=== PATIENT | male | born 1950 | race Caucasian/White ===

== ENCOUNTER → 2016-10-25 | Outpatient (CLI) | payer MEDICAID ==
[2016-10-25 14:58] LABS: CH 32.9; CHCM 32.1; HDW 2.24; HGB 9.1 gm/dL (13.0-17.5); MCH 33.4 pg (25.0-35.0); MCHC 32.4 g/dL (31.0-37.0); MCV 103.1 fL (80.0-100.0); Macrocytosis Slight; RBC 2.71 m/uL (4.30-5.90); RDW 12.2 % (11.5-15.5); WBC 7.3 k/uL (3.8-10.6)
[2016-10-25 15:17] LABS: ALT 31 U/L (21-72); AST 23 U/L (17-59); Alkaline Phosphatase 68 U/L (38-126); Anion Gap 8 mmol/L; Blood Urea Nitrogen 25 mg/dL (9-20); Calcium 9.4 mg/dL (8.4-10.2); Carbon Dioxide 37 mmol/L (22-30); Chloride 94 mmol/L (98-107); Glucose 80 mg/dL (74-99); Iron 100 ug/dL (49-181); Non-African American GFR(MDRD) >60 (>60 ml/min/1.73 sqM); Potassium 5.2 mmol/L (3.5-5.1); Sodium 139 mmol/L (137-145); Total Bilirubin 0.3 mg/dL (0.2-1.3)
[2016-10-25 15:26] LABS: % Iron Saturation 38.5 % (20-50); Total Iron Binding Capacity 260 ug/dL (261-462)
== END | disposition home or self-care (01) ==
LOC: LABWHC1 14:13
PROVIDERS: ATTEND Internal Medicine
DX: I25.10 Atherosclerotic heart disease of native coronary artery without angina pectoris (principal); I45.10 Unspecified right bundle-branch block; I25.5 Ischemic cardiomyopathy; D64.9 Anemia, unspecified; E87.8 Other disorders of electrolyte and fluid balance, not elsewhere classified
CPT/HCPCS: 36415; 80053; 82728; 83540; 83550; 85027

== ENCOUNTER → 2016-10-31 | Day surgery (SDC) | payer MEDICAID ==
[2016-10-29 09:05] VITALS: BMI 20.7
[~2016-10-31] MED LIST: SODIUM CHLORIDE 0.9% 1,000 ML IV SCH; VANCOMYCIN 2,000 MG in SODIUM CHLORIDE 0.9% 500 ML IVPB ONE; ceFAZolin 1,000 MG in SODIUM CHLORIDE 0.9% IRRIGATIO 250 ML IRRIGATION ONE; ceFAZolin 2 GM in SODIUM CHLORIDE 0.9% 100 ML IVPB ONE
[2016-10-31 12:04] VITALS: BP 124/60; PULSE 68; RESP 18; TEMP 98.7
[2016-10-31 12:21] LABS: Anion Gap 7 mmol/L; Blood Urea Nitrogen 22 mg/dL (9-20); Calcium 9.1 mg/dL (8.4-10.2); Carbon Dioxide 34 mmol/L (22-30); Chloride 92 mmol/L (98-107); Glucose 88 mg/dL (74-99); Non-African American GFR(MDRD) 56 (>60 ml/min/1.73 sqM); Potassium 5.8 mmol/L (3.5-5.1); Sodium 133 mmol/L (137-145)
== END ==
LOC: CATHEP 11:13
PROVIDERS: ATTEND Internal Medicine Clinical Cardiac Electrophysiology
DX: I25.5 Ischemic cardiomyopathy (principal); I25.10 Atherosclerotic heart disease of native coronary artery without angina pectoris; I50.9 Heart failure, unspecified; I48.0 Paroxysmal atrial fibrillation; I49.5 Sick sinus syndrome; I49.8 Other specified cardiac arrhythmias
CPT/HCPCS: 80048; J3370

== ENCOUNTER → 2016-11-11 | Outpatient (CLI) | payer MEDICAID ==
[2016-11-11 14:32] LABS: Anion Gap 10 mmol/L; Blood Urea Nitrogen 16 mg/dL (9-20); Calcium 9.3 mg/dL (8.4-10.2); Carbon Dioxide 35 mmol/L (22-30); Chloride 94 mmol/L (98-107); Glucose 96 mg/dL (74-99); Non-African American GFR(MDRD) >60 (>60 ml/min/1.73 sqM); Potassium 4.8 mmol/L (3.5-5.1); Sodium 139 mmol/L (137-145)
== END | disposition home or self-care (01) ==
LOC: LABWHC1 13:05
PROVIDERS: ATTEND Internal Medicine Clinical Cardiac Electrophysiology
DX: E87.5 Hyperkalemia (principal); I42.9 Cardiomyopathy, unspecified
CPT/HCPCS: 36415; 80048

== ENCOUNTER 2016-11-25 14:52 | Day surgery (SDC) | payer MEDICAID ==
[2016-11-21 09:08] VITALS: BMI 21.9
[~2016-11-25 14:52] MED LIST changes: -SODIUM CHLORIDE 0.9% 1,000 ML IV SCH; -VANCOMYCIN 2,000 MG in SODIUM CHLORIDE 0.9% 500 ML IVPB ONE
[2016-11-25] MEDS: SODIUM CHLORIDE 0.9% 1,000 ML IV SCH (15:45)
[2016-11-25] MEDS ORDERED: fentaNYL (PF) 50 MCG/ML 2 ML AMP ONE (17:49)
[2016-11-25] MEDS ORDERED: diphenhydrAMINE 50 MG/ML 1 ML VIAL ONE (17:49)
[2016-11-25] MEDS ORDERED: MIDAZOLAM 2 MG/2 ML VIAL ONE (17:49)
[2016-11-25] MEDS ORDERED: PROPOFOL 10 MG/ML 20 ML VIAL IV ONE (17:49)
[2016-11-25] MEDS ORDERED: IODIXANOL 320 MG/ML 100 ML IV ONE (18:25)
[2016-11-25] MEDS ORDERED: LIDOCAINE 1% INJ 10MG/ML (20 ML MDV) SQ ONE (18:31)
[2016-11-25] MEDS: LIDOCAINE 1% INJ 10MG/ML (20 ML MDV) SQ ONE ×2 (18:37→19:22)
[2016-11-25] MEDS ORDERED: HYDROcodone/APAP 5-325MG 1 EACH TAB PO PRN (19:15)
[2016-11-25] MEDS ORDERED: VANCOMYCIN 1,000 MG in SODIUM CHLORIDE 0.9% 250 ML IVPB STA (19:47)
[2016-11-25] MEDS ORDERED: ACETAMINOPHEN IV (For NPO) 1,000 MG in EMPTY BAG 1 BAG IVPB ONE (20:00)
--- NOTE | 2016-11-25 20:17 | CE ---
DATE OF SERVICE: 11/25/2016 INDICATIONS: Mr. Nakul bowles is a 66-year-old gentleman, patient of Dr. Finney and Dr. Oropeza, who has severe cardiomyopathy with heart failure symptoms. His heart failure symptoms have improved gradually. His left ventricular ejection fraction is still severely reduced. He has severe ischemic cardiomyopathy with chronic systolic dysfunction, ejection fraction of 30% to 35%, paroxysmal atrial fibrillation that precipitates acute heart failure. He has sick sinus syndrome, chronotropic incompetence, AV node disease, tendency for hyperkalemia as a result of which spironolactone had to be discontinued, right bundle branch block on 12-lead ECG. He is also on low dose amiodarone 100 mg daily for suppression of atrial fibrillation. He was brought for dual-chamber ICD implantation for primary prevention of sudden cardiac . He has a history of MRSA and he was treated for this by Dr. Elmore. DESCRIPTION OF PROCEDURE: Patient was brought to the EP lab in a fasting state. Written informed consent was obtained prior to the procedure. The left shoulder area was prepped and draped as per protocol. Next, 1% was used for local anesthesia. A 4 cm incision was made parallel to the deltopectoral groove, about 1.5 cm medial to it. The incision was carried down to the level of pectoralis muscle. A subfascial pocket was made. Hemostasis was assured. The left axillary vein was accessed at 2 separate points and via appropriate-sized introducer sheaths, 2 leads were positioned in the right heart. The atrial lead model #1944, 52 centimeters in length, and serial number [id number]. P waves were 5 mV, pacing impedance 530 ohms, pacing threshold 0.5 ohms at 0.5 milliseconds. ( ) test testing was negative. This was a Anya lead placed in the right atrial appendage. The ICD lead was a 58 cm quadripolar lead, model #DI2331E, serial number [id number]. R-waves were 11.7 mV, pacing impedance 450 ohms, pacing threshold 0.5 ohms at 0.5 milliseconds. ( ) test was negative. Both leads were the underlying pectoralis fascia using two nonabsorbable sutures. Pocket was irrigated with antibiotic solution. Leads were connected to the generator ([id number], serial number [id number]. Lead and generator were then placed in the subfascial pocket. The wound was closed in 3 layers and dressed per protocol. The device was secured to the underlying pectoralis muscle also. DFT testing under anesthesia. A DC fib shock was used to induce ventricular fibrillation. This was adequately and appropriately detected lead sensitivity and successfully internally defibrillated with a 20 joule shock. The 10 joule shock was unsuccessful in the cathodal polarity. Shocking impedance was 65 ohms. Charge time was 1.8 seconds for the first shock and 4.0 for the second shock. The device was then programmed on MADIT-RIT programming. First cardioversion at 20 joules, first defibrillation at 30 joules. Appropriate antitachycardia pacing was programmed. RESULT: Successful dual-chamber ICD implantation for primary prevention of sudden cardiac in this gentleman who has severe cardiomyopathy of a chronic nature with heart failure symptoms as well as evidence for sinus node disease and AV node disease, as well as right bundle branch block. PLAN: The patient may discontinue digoxin. The dose of metoprolol will be increased as an outpatient.
--- NOTE | 2016-11-25 20:21 | LTR ---
November 25, 2016 Dr. Finney RE: Rogers Mota tK Dear Dr. Finney: I had the pleasure of seeing Mr. Rogers Mota in electrophysiology followup. Mr. Mota underwent successful dual-chamber ICD implantation for primary prevention of sudden cardiac . He has a tendency for hyperkalemia and therefore spironolactone was discontinued. I have also asked him to discontinue digoxin. Hopefully his blood pressure will allow further maximization of his beta larisa dose as an outpatient. Thank you for entrusting me with the care of your patient. Warm regards. Sincerely, LUBNA VILLASEÑOR MD
[2016-11-25] MEDS: LACTATED RINGERS 1,000 ML IV SCH (20:41)
[2016-11-25] MEDS: IPRATROPIUM-ALBUTEROL 3 ML NEB INHALATION PRN (20:50)
[2016-11-25] MEDS: SYMBICORT 160-4.5 MCG INHALER INHALATION SCH (20:50)
[2016-11-25] MEDS ORDERED: ATORVASTATIN 40 MG TAB PO SCH (21:00)
[2016-11-25] MEDS: FUROSEMIDE 20 MG TAB PO SCH (21:25)
[2016-11-25] MEDS: METOPROLOL TARTRATE 25 MG TAB PO SCH (21:25)
[2016-11-25] MEDS: ACETAMINOPHEN TAB 325 MG TAB PO PRN (21:52)
[2016-11-26] MEDS: ceFAZolin 2 GM in SODIUM CHLORIDE 0.9% 100 ML IVPB SCH ×4 (00:01→17:16)
[2016-11-26] MEDS: IPRATROPIUM-ALBUTEROL 3 ML NEB INHALATION PRN ×3 (00:04→18:40)
[2016-11-26 05:47] VITALS: RESP 16
[2016-11-26] MEDS: SODIUM CHLORIDE 0.9% 1,000 ML IV SCH (06:02)
[2016-11-26] MEDS: LACTATED RINGERS 1,000 ML IV SCH (06:02)
[2016-11-26] MEDS ORDERED: LEVOTHYROXINE 75 MCG TAB PO SCH (06:30)
[2016-11-26] MEDS ORDERED: LEVOTHYROXINE 100 MCG TAB PO SCH (06:30)
[2016-11-26] MEDS: SYMBICORT 160-4.5 MCG INHALER INHALATION SCH ×2 (07:33→18:40)
--- NOTE | 2016-11-26 08:15 | XR ---
EXAMINATION TYPE: XR chest 2V DATE OF EXAM: 11/26/2016 6:38 AM COMPARISON: Prior chest x-ray 13 December 2015 HISTORY: Lead placement check TECHNIQUE: Frontal and lateral views of the chest are obtained. FINDINGS: There is been interval placement of a generator in the left pectoral region, leads are pre sent in the right atrium and ventricle. Interstitium is increased. There is blunting of the costophre wyatt angles. No evident pneumothorax. Heart size is stable. Pulmonary vascularity and yaya show a jay lar appearance. IMPRESSION: No evident complication status post lead placement. There is heart failure, pulmonary ve nous hypertension and interstitial edema, small effusions.
[2016-11-26] MEDS: FUROSEMIDE 20 MG TAB PO SCH (08:20)
[2016-11-26] MEDS: METOPROLOL TARTRATE 25 MG TAB PO SCH (08:22)
[2016-11-26] MEDS ORDERED: CLOPIDOGREL 75 MG TAB PO SCH (09:00)
[2016-11-26] MEDS ORDERED: ASPIRIN 81 MG CHEW PO SCH (09:00)
[2016-11-26] MEDS ORDERED: AMIODARONE 100 MG TAB PO SCH (09:00)
[2016-11-26] MEDS: ACETAMINOPHEN TAB 325 MG TAB PO PRN (14:25)
[2016-11-26 15:59] VITALS: BP 103/56; TEMP 99.1
[2016-11-26 18:43] VITALS: PULSE 88
--- NOTE | 2016-11-26 19:44 | P.DS ---
Providers Attending physician: Maximino Bowden Primary care physician: [facility] Course: Mr. Mota is doing very well post dual-chamber ICD implant. He has no chest discomfort no dizziness lightheadedness palpitations or shortness of breath. He is lying comfortably in bed. There is no hematoma at all. No soakage of the dressing Temperature 99.1F, pulse rate in the 80s, blood pressure 103/56 mmHg And neck examination is normal. No JVD no thyromegaly no carotid bruits Heart sounds S1 and S2 are normal no murmurs or gallops Breath sounds are normal and equal bilaterally Abdomen is soft nontender Extremities warm no edema ICD was interrogated and is functioning normally Chest x-ray is within normal limits Plan Patient is discharged home after completion of IV antibiotics and will follow with Dr. Lindo He will be seen in the ICD clinic in 5 days did all instructions post ICD implant were given to the patient Patient Condition at Discharge: Stable Plan - Discharge Summary Discharge Medication List RX: Levothyroxine Sodium [Synthroid] 175 mcg PO DAILY 06/23/15 [History] RX: Multivitamins, Thera [Multivitamin (formulary)] 1 tab PO DAILY 06/24/15 [ History] RX: Amiodarone [Cordarone] 100 mg PO DAILY 09/04/15 [History] RX: Aspirin 81 mg PO DAILY 09/04/15 [History] RX: Furosemide [Lasix] 20 mg PO BID 09/04/15 [History] RX: Atorvastatin [Lipitor] 40 mg PO HS tab 09/22/15 [Rx] RX: Clopidogrel [Plavix] 75 mg PO DAILY tab 09/22/15 [Rx] RX: Metoprolol Tartrate [Lopressor] 25 mg PO BID tab 09/22/15 [Rx] RX: Nitroglycerin Sl Tabs [Nitrostat] 0.4 mg SUBLINGUAL Q5M PRN #0 tab 09/22/15 [Rx] RX: Budesonide/Formoterol Fumarate [Symbicort 160-4.5 Mcg Inhaler] 2 puff INHALATION BID 09/29/15 [History] RX: Ferrous Sulfate [Iron (65 MG Elemental)] 325 mg PO BID 10/04/15 [History] RX: Cholecalciferol [Vitamin D3] 1,000 unit PO DAILY 10/29/16 [History] RX: Folic Acid 1 mg PO DAILY 10/29/16 [History] RX: Ipratropium-Albuterol Nebulize [Duoneb 0.5 mg-3 mg/3 ml Soln] 3 ml INHALATION TID PRN 10/29/16 [History] RX: L.acidoph,Paracasei, B.lactis [Probiotic] 1 each PO DAILY 10/29/16 [History] RX: Pantoprazole [Protonix] 40 mg PO DAILY 10/29/16 [History] RX: Sennosides [Senna] 8.6 mg PO DAILY 10/29/16 [History] RX: Ubidecarenone [Co Q-10] 100 mg PO DAILY 10/29/16 [History] Digoxin [Lanoxin] 125 mcg PO DAILY 11/25/16 [History] Follow up Appointment(s)/Referral(s): Adolfo Hollis MD [STAFF PHYSICIAN] - 01/20/17 4:00 pm (Appontment has been schedule in one week for device check. at 2:00 with Sridevi.) Mauricio Oropeza MD [STAFF PHYSICIAN] - 1 Week Patient Instructions/Handouts: Implantable Cardioverter Defibrillator (GEN) Activity/Diet/Wound Care/Special Instructions: PATIENT EDUCATION MATERIAL Instructions following a heart rhythm device implant. 1. Keep dressing DRY for ONE week. You may cover the area with Saran or Cling Wrap, prior to a shower. 2. The dressing will be removed after one week in the Device Clinic @ [facility]. Absorbable sutures were used to close the wound. 3. Avoid raising the [left] arm above the shoulder level. [6 week restriction] 4. Avoid arm movements, like backscratching, rubbing the head, or pulling on a cord. (6 weeks restriction) 5. Gentle range of motion movements of the shoulder, closest to the incision should be performed to avoid a frozen shoulder. (Pendulum exercises of the shoulder) 6. The opposite arm may be used freely. 7. Avoid driving for 7 days. 8. Avoid activities such as golfing, swimming, weed whacking, lifting more than 10 pounds weight, bowling, gymnastics and weight training/lifting. (6 weeks restriction) 9. Activities such as wood chopping with an axe, pull-ups in the gymnasium, power lifting, arc-welding, being close to home induction cooktops will always be a problem. In case of any problems, please call [facility], [place], @ [phone], Attention: Device Clinic Discontinue digoxin
== END 2016-11-26 19:23 | disposition home or self-care (01) ==
LOC: CATHEP 14:52 → 3OBS 19:05 → CATHEP 11-26 19:23
PROVIDERS: ATTEND Internal Medicine Clinical Cardiac Electrophysiology
DX: I25.5 Ischemic cardiomyopathy (principal); I25.10 Atherosclerotic heart disease of native coronary artery without angina pectoris; I48.0 Paroxysmal atrial fibrillation; I49.5 Sick sinus syndrome; I25.89 Other forms of chronic ischemic heart disease; Z00.6 Encounter for examination for normal comparison and control in clinical research program; I11.0 Hypertensive heart disease with heart failure; I50.22 Chronic systolic (congestive) heart failure; Z87.891 Personal history of nicotine dependence; I45.10 Unspecified right bundle-branch block; Z95.5 Presence of coronary angioplasty implant and graft; Z86.14 Personal history of Methicillin resistant Staphylococcus aureus infection; Z79.02 Long term (current) use of antithrombotics/antiplatelets; Z79.82 Long term (current) use of aspirin; Z79.51 Long term (current) use of inhaled steroids; Z79.899 Other long term (current) drug therapy
CPT/HCPCS: 94640 ×4; 94760; 33249; 71020; C1892; C1769; C1721; C1898; C1777; J2250; J3370; J1200; Q9967; J0690 ×3; J2001; J3010; J2704

== ENCOUNTER 2016-12-01 15:58 | Inpatient (IN) | payer MEDICAID ==
--- NOTE | 2016-12-01 16:40 | ED ---
SOB HPI - General Chief Complaint: Shortness of Breath Stated Complaint: SOB Time Seen by Provider: 12/01/16 16:18 Source: patient Mode of arrival: wheelchair Limitations: no limitations - History of Present Illness Initial Comments: 66-year-old male patient presents to emergency department today for complaints of shortness of breath. Patient is status post pacemaker and ICD implantation on Friday by Dr. Bowden. 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 Patient states that after the procedure on Friday his saturation did drop into the 70s, afterwards he coughed up some sputum and was able to get his sats back up and was discharged home. Patient states that since the procedure he has been short winded, rundown, and unable to perform activities of daily living without becoming extremely short of breath. Patient does have a history of COPD and is chronically dependent on home O2 at 2-3 L. Patient denies any headaches, dizziness, chest pain, back pain, abdominal pain, nausea, vomiting, hematuria, dysuria, urinary urgency, or urinary frequency. Patient denies any constipation, diarrhea, dark, bloody, or black stools. He denies any fever, chills, sore throat, and nasal congestion. He states he does have a chronic cough and denies any current sputum production. - Related Data Home Medications Medication Instructions Recorded Confirmed Levothyroxine Sodium [Synthroid] 175 mcg PO DAILY 06/23/15 12/01/16 Multivitamins, Thera [Multivitamin 1 tab PO DAILY 06/24/15 12/01/16 (formulary)] Amiodarone [Cordarone] 100 mg PO DAILY 09/04/15 12/01/16 Aspirin 81 mg PO DAILY 09/04/15 12/01/16 Furosemide [Lasix] 20 mg PO BID 09/04/15 12/01/16 Budesonide/Formoterol Fumarate 2 puff INHALATION RT-BID 09/29/15 12/01/16 [Symbicort 160-4.5 Mcg Inhaler] Ferrous Sulfate [Iron (65 MG 325 mg PO BID 10/04/15 12/01/16 Elemental)] Cholecalciferol [Vitamin D3] 1,000 unit PO DAILY 10/29/16 12/01/16 Folic Acid 1 mg PO DAILY 10/29/16 12/01/16 Ipratropium-Albuterol Nebulize 3 ml INHALATION RT-Q6H PRN 10/29/16 12/01/16 [Duoneb 0.5 mg-3 mg/3 ml Soln] L.acidoph,Paracasei, B.lactis 1 each PO DAILY 10/29/16 12/01/16 [Probiotic] Pantoprazole [Protonix] 40 mg PO DAILY 10/29/16 12/01/16 Sennosides [Senna] 8.6 mg PO DAILY 10/29/16 12/01/16 Ubidecarenone [Co Q-10] 100 mg PO DAILY 10/29/16 12/01/16 Previous Rx's Medication Instructions Recorded Atorvastatin [Lipitor] 40 mg PO HS tab 09/22/15 Clopidogrel [Plavix] 75 mg PO DAILY tab 09/22/15 Metoprolol Tartrate [Lopressor] 25 mg PO BID tab 09/22/15 Nitroglycerin Sl Tabs [Nitrostat] 0.4 mg SUBLINGUAL Q5M PRN #0 tab 09/22/15 Allergies Allergy/AdvReac Type Severity Reaction Status Date / Time No Known Allergies Allergy Verified 12/01/16 18:31 Review of Systems ROS Statement: Those systems with pertinent positive or pertinent negative responses have been documented in the HPI. ROS Other: All systems not noted in ROS Statement are negative. Past Medical History Past Medical History: Heart Failure, COPD, Hypertension, Myocardial Infarction ( SD), Renal Disease, Thyroid Disorder, Hypertension, Myocardial Infarction (SD), Thyroid Disorder Additional Past Medical History / Comment(s): See Dr Bowden's H&P, anemia, coumadin toxicity, hypoxia, weakness, dehydration, ASHD, , SACROCOCCYGEAL PRESSURE ULCER-healed,pulmonaty HTN, hypothyroidism, beginnings of cataracts bilaterally. Last Myocardial Infarction Date:: 06/24/15 History of Any Multi-Drug Resistant Organisms: C-DIFF Date of last positivie culture/infection: 09/22/2015 MDRO Source:: STOOL Past Surgical History: Heart Catheterization With Stent, Orthopedic Surgery Additional Past Surgical History / Comment(s): 1996 L shoulder rotator cuff surgery, colonoscopy with benign polypectomy.heart stent x1 Past Anesthesia/Blood Transfusion Reactions: No Reported Reaction Additional Past Anesthesia/Blood Transfusion Reaction / Comment(s): Pt has never received blood. Date of Last Stent Placement:: 06/2015 Past Psychological History: No Psychological Hx Reported Additional Psychological History / Comment(s): PT CURRENTLY PATIENT AT [facility] Smoking Status: Former smoker Past Alcohol Use History: None Reported Additional Past Alcohol Use History / Comment(s): Pt states he quit smoking when he had his SD. He started smoking in 1968 and was a ppd smoker until then. Patient denies any medical marijuana, street drug use. He denies any alcohol use. alcohol use. 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 Patient lives at home with his . No service. No pets in the home. Past Drug Use History: None Reported - Past Family History Father Family Medical History: Coronary Artery Disease (CAD), Myocardial Infarction (SD ) Additional Family Medical History / Comment(s): Father at age 86yrs. He had a CABG Mother Family Medical History: Cancer Additional Family Medical History / Comment(s): Mother in her 30's of breast cancer. General Exam Limitations: no limitations General appearance: alert, in no apparent distress Eye exam: Present: normal appearance, PERRL, EOMI. Absent: scleral icterus, conjunctival injection, periorbital swelling ENT exam: Present: normal exam, normal oropharynx, mucous membranes moist Neck exam: Present: normal inspection, full ROM. Absent: tenderness, meningismus, lymphadenopathy Respiratory exam: Present: respiratory distress (Mild), rales (Bilateral bases) , rhonchi (Expiratory throughout). Absent: normal lung sounds bilaterally, wheezes, stridor Cardiovascular Exam: Present: regular rate, normal rhythm, normal heart sounds. Absent: systolic murmur, diastolic murmur, rubs, gallop, clicks GI/Abdominal exam: Present: soft, normal bowel sounds. Absent: distended, tenderness, guarding, rebound, rigid Extremities exam: Present: normal inspection, full ROM, normal capillary refill. Absent: tenderness, pedal edema, joint swelling, calf tenderness Neurological exam: Present: alert, oriented X3, CN II-XII intact Psychiatric exam: Present: normal affect, normal mood Skin exam: Present: warm, dry, intact, pallor. Absent: rash Course Vital Signs 12/01/16 12/01/16 12/01/16 16:06 16:47 18:34 Temperature 97.8 F Pulse Rate 85 118 H Respiratory 20 20 Rate Blood Pressure 116/60 O2 Sat by Pulse 96 Oximetry 12/01/16 18:46 Temperature Pulse Rate 109 H Respiratory Rate Blood Pressure O2 Sat by Pulse Oximetry Medical Decision Making - Medical Decision Making 66-year-old male patient who is status post pacemaker and ICD implantation on Friday appointment of dyspnea and generalized weakness. Labs revealed a elevated troponin, CO2 of 40, and elevated BNP. D-dimer was also elevated at 1.21. CT of the chest was negative for any pulmonary embolism, findings were consistent with pulmonary edema. Patient will be admitted for diuresis and cardiology consultation. is accepting for Dr. Finney . - Lab Data Result diagrams: 12/01/16 16:40 12/01/16 16:40 Lab Results 12/01/16 12/01/16 12/01/16 Range/Units 16:40 16:40 16:40 WBC 9.7 (3.8-10.6) k/uL RBC 2.39 L (4.30-5.90) m/uL Hgb 8.2 L (13.0-17.5) gm/dL Hct 25.2 L (39.0-53.0) % MCV 105.3 H (80.0-100.0) fL MCH 34.2 (25.0-35.0) pg MCHC 32.4 (31.0-37.0) g/dL RDW 13.2 (11.5-15.5) % Plt Count 316 (150-450) k/uL Neutrophils % 77 % Lymphocytes % 10 % Monocytes % 7 % Eosinophils % 2 % Basophils % 1 % Neutrophils # 7.5 (1.3-7.7) k/uL Lymphocytes # 1.0 (1.0-4.8) k/uL Monocytes # 0.7 (0-1.0) k/uL Eosinophils # 0.2 (0-0.7) k/uL Basophils # 0.1 (0-0.2) k/uL Hypochromasia Slight Macrocytosis Slight PT (9.0-12.0) sec INR (<1.1) APTT (22.0-30.0) sec D-Dimer (<0.60) mg/L FEU Sodium 142 (137-145) mmol/L Potassium 5.2 H (3.5-5.1) mmol/L Chloride 93 L (98-107) mmol/L Carbon Dioxide 40 H* (22-30) mmol/L Anion Gap 9 mmol/L BUN 24 H (9-20) mg/dL Creatinine 1.00 (0.66-1.25) mg/dL Est GFR (MDRD) Af Amer >60 (>60 ml/min/1.73 sqM) Est GFR (MDRD) Non-Af >60 (>60 ml/min/1.73 sqM) Glucose 111 H (74-99) mg/dL Calcium 9.2 (8.4-10.2) mg/dL Magnesium 2.6 H (1.6-2.3) mg/dL Total Bilirubin 0.4 (0.2-1.3) mg/dL AST 19 (17-59) U/L ALT 27 (21-72) U/L Alkaline Phosphatase 71 (38-126) U/L Total Creatine Kinase 58 (55-170) U/L CK-MB (CK-2) 3.3 H* (0.0-2.4) ng/mL CK-MB (CK-2) Rel Index 5.7 Troponin I 0.213 H* (0.000-0.034) ng/mL NT-Pro-B Natriuret Pep pg/mL Total Protein 6.8 (6.3-8.2) g/dL Albumin 3.4 L (3.5-5.0) g/dL Influenza Type A RNA (Not Detectd) Influenza Type B (PCR) (Not Detectd) 12/01/16 12/01/16 12/01/16 Range/Units 16:40 16:40 16:40 WBC (3.8-10.6) k/uL RBC (4.30-5.90) m/uL Hgb (13.0-17.5) gm/dL Hct (39.0-53.0) % MCV (80.0-100.0) fL MCH (25.0-35.0) pg MCHC (31.0-37.0) g/dL RDW (11.5-15.5) % Plt Count (150-450) k/uL Neutrophils % % Lymphocytes % % Monocytes % % Eosinophils % % Basophils % % Neutrophils # (1.3-7.7) k/uL Lymphocytes # (1.0-4.8) k/uL Monocytes # (0-1.0) k/uL Eosinophils # (0-0.7) k/uL Basophils # (0-0.2) k/uL Hypochromasia Macrocytosis PT 11.0 (9.0-12.0) sec INR 1.1 (<1.1) APTT 26.6 (22.0-30.0) sec D-Dimer 1.21 H (<0.60) mg/L FEU Sodium (137-145) mmol/L Potassium (3.5-5.1) mmol/L Chloride (98-107) mmol/L Carbon Dioxide (22-30) mmol/L Anion Gap mmol/L BUN (9-20) mg/dL Creatinine (0.66-1.25) mg/dL Est GFR (MDRD) Af Amer (>60 ml/min/1.73 sqM) Est GFR (MDRD) Non-Af (>60 ml/min/1.73 sqM) Glucose (74-99) mg/dL Calcium (8.4-10.2) mg/dL Magnesium (1.6-2.3) mg/dL Total Bilirubin (0.2-1.3) mg/dL AST (17-59) U/L ALT (21-72) U/L Alkaline Phosphatase (38-126) U/L Total Creatine Kinase (55-170) U/L CK-MB (CK-2) (0.0-2.4) ng/mL CK-MB (CK-2) Rel Index Troponin I (0.000-0.034) ng/mL NT-Pro-B Natriuret Pep 29038 pg/mL Total Protein (6.3-8.2) g/dL Albumin (3.5-5.0) g/dL Influenza Type A RNA Not Detected (Not Detectd) Influenza Type B (PCR) Not Detected (Not Detectd) 12/01/16 18:37 EKG obtained at 1706 reveals normal sinus rhythm, possible left atrial enlargement, right bundle branch block, anteroseptal infarct with age undetermined, ventricular rate 94 IL interval 192 QRS duration 160 QT 384 QTC [address]. No significant ST elevation or depression noted. Compared to previous EKG obtained on 10/05/2015 reveals similar changes, changes appear to be chronic. - Radiology Data Radiology results: report reviewed CT of the chest impression by Dr. Ramirez reveals no evidence of pulmonary embolus him. Pulmonary edema with pleural effusions and cardiomegaly consistent with congestive heart failure. There is decreased amount of fluid by increasing right pleural fluid compared to last exam. Pulmonary edema is significantly increased. X-ray reveals CHF with pleural effusion that has progressed compared to last exam on 11/26/2016. Disposition Clinical Impression: CHF (congestive heart failure), Elevated troponin, Dyspnea Disposition: ADMITTED IP TO THIS HOSP Condition: Fair Decision Date: 12/01/16 Decision Time: 18:32
[2016-12-01 17:05] LABS: Basophils # (A) 0.1 k/uL (0-0.2); Basophils % (A) 1 %; CH 32.9; CHCM 31.5; Eosinophils # (A) 0.2 k/uL (0-0.7); Eosinophils % (A) 2 %; HCT 25.2 % (39.0-53.0); HDW 2.56; HGB 8.2 gm/dL (13.0-17.5); Hypochromasia Slight; Luc # (Auto) 0.32; Luc % (Auto) 3; Lymphocytes % (A) 10 %; MCH 34.2 pg (25.0-35.0); MCHC 32.4 g/dL (31.0-37.0); MCV 105.3 fL (80.0-100.0); Macrocytosis Slight; Mean Platelet Volume 8.3; Monocytes # (A) 0.7 k/uL (0-1.0); Monocytes % (A) 7 %; Neutrophils # (A) 7.5 k/uL (1.3-7.7); Neutrophils % (A) 77 %; RBC 2.39 m/uL (4.30-5.90); RDW 13.2 % (11.5-15.5); WBC 9.7 k/uL (3.8-10.6); WBC (Perox) 10.16
[2016-12-01 17:15] LABS: ALT 27 U/L (21-72); AST 19 U/L (17-59); Alkaline Phosphatase 71 U/L (38-126); Blood Urea Nitrogen 24 mg/dL (9-20); Calcium 9.2 mg/dL (8.4-10.2); Chloride 93 mmol/L (98-107); Glucose 111 mg/dL (74-99); Magnesium 2.6 mg/dL (1.6-2.3); Non-African American GFR(MDRD) >60 (>60 ml/min/1.73 sqM); Potassium 5.2 mmol/L (3.5-5.1); Sodium 142 mmol/L (137-145); Total Bilirubin 0.4 mg/dL (0.2-1.3); Total Protein 6.8 g/dL (6.3-8.2)
[2016-12-01 17:21] LABS: Anion Gap 9 mmol/L
[2016-12-01 17:22] LABS: INR 1.1 (<1.1); Partial Thromboplastin Time 26.6 sec (22.0-30.0)
--- NOTE | 2016-12-01 17:22 | XR ---
EXAMINATION TYPE: XR chest 2V DATE OF EXAM: 12/01/2016 4:58 PM COMPARISON: 11/26/2016 HISTORY: Short of breath TECHNIQUE: Frontal and lateral views of the chest are obtained. FINDINGS: There is pulmonary vascular congestion. Heart is slightly enlarged. There is a left axilla ry pacemaker with lead tips in the right ventricle. There are chest leads. There is blunting of costo phrenic angles. IMPRESSION: Congestive heart failure with pleural effusions that has progressed compared to 7.
[2016-12-01 17:39] LABS: Carbon Dioxide 40 mmol/L (22-30)
[2016-12-01] MEDS ORDERED: RX INFO: IV CONTRAST WAS GIVEN 1 EACH MISC MISCELLANE PRN (17:39)
[2016-12-01 18:03] LABS: Creatine Kinase MB 3.3 ng/mL (0.0-2.4); Troponin I 0.213 ng/mL (0.000-0.034)
[2016-12-01] MEDS ORDERED: IPRATROPIUM-ALBUTEROL 3 ML NEB INHALATION STA (18:21)
[2016-12-01] MEDS ORDERED: FUROSEMIDE 10 MG/ML 4 ML VIAL IV STA (18:21)
[2016-12-01] MEDS ORDERED: NALOXONE 0.4 MG/ML 1 ML VIAL IV PRN (18:23)
--- NOTE | 2016-12-01 18:25 | CT ---
EXAMINATION TYPE: CT angio chest DATE OF EXAM: 12/01/2016 6:16 PM COMPARISON: 03/01/2016 HISTORY: Patient complains of shortness of breath and chest pain. CT DLP: 209.1 mGycm Automated exposure control for dose reduction was used. CONTRAST: CTA scan of the thorax is performed with IV Contrast, patient injected with 100 mL of Omnipaque 350, pulmonary embolism protocol. . FINDINGS: There is diffuse pulmonary edema. There is coarse interstitial infiltrates throughout the lungs. I se e no filling defects in the pulmonary arteries. Heart is enlarged. There are bilateral pleural effusi ons and larger on the right side. There is no mediastinal adenopathy. There are no hilar masses. There is some contrast reflux into the inferior vena cava. IMPRESSION: NO EVIDENCE OF PULMONARY EMBOLISM. PULMONARY EDEMA WITH PLEURAL EFFUSIONS AND CARDIOMEGALY CONSISTENT WITH CONGESTIVE HEART FAILURE. THE RE IS DECREASE IN LEFT PLEURAL FLUID BUT INCREASE IN RIGHT PLEURAL FLUID COMPARED TO LAST EXAM. PULMO NARY EDEMA IS SIGNIFICANTLY INCREASED.
[2016-12-01] MEDS ORDERED: HEPARIN SODIUM,PORCINE 5,000 UNIT/ML 1 ML VIAL IV PRN (18:27)
[2016-12-01] MEDS ORDERED: HEPARIN SODIUM,PORCINE 5,000 UNIT/ML 1 ML VIAL IV ONE (18:27)
[2016-12-01] MEDS ORDERED: HEPARIN SODIUM,PORCINE/D5W PMX 25,000 UNIT in DEXTROSE/WATER 1 500ML.BAG IV SCH (18:30)
[2016-12-01] MEDS: SYMBICORT 160-4.5 MCG INHALER INHALATION SCH (19:05)
[2016-12-01] MEDS: FERROUS SULFATE 325 MG TAB PO SCH (20:25)
[2016-12-01] MEDS: ATORVASTATIN 40 MG TAB PO SCH (20:25)
[2016-12-01] MEDS: METOPROLOL TARTRATE 25 MG TAB PO SCH (20:25)
[2016-12-01] MEDS: FUROSEMIDE 10 MG/ML 4 ML VIAL IV SCH (20:26)
[2016-12-02 06:08] LABS: Basophils % (A) 0 %; CH 32.4; CHCM 30.9; Eosinophils # (A) 0.1 k/uL (0-0.7); Eosinophils % (A) 1 %; HCT 23.9 % (39.0-53.0); HDW 2.51; HGB 7.5 gm/dL (13.0-17.5); Hypochromasia Slight; Luc # (Auto) 0.25; Luc % (Auto) 3; Lymphocytes # (A) 1.1 k/uL (1.0-4.8); Lymphocytes % (A) 14 %; MCH 32.9 pg (25.0-35.0); MCHC 31.3 g/dL (31.0-37.0); MCV 105.2 fL (80.0-100.0); Macrocytosis Slight; Mean Platelet Volume 7.3; Monocytes # (A) 0.6 k/uL (0-1.0); Monocytes % (A) 7 %; Neutrophils # (A) 6.1 k/uL (1.3-7.7); Neutrophils % (A) 74 %; RBC 2.27 m/uL (4.30-5.90); RDW 13.2 % (11.5-15.5); WBC 8.3 k/uL (3.8-10.6); WBC (Perox) 9.05
[2016-12-02 06:20] LABS: INR 1.2 (<1.1); Prothrombin Time 11.6 sec (9.0-12.0)
[2016-12-02] MEDS: LEVOTHYROXINE 75 MCG TAB PO SCH (06:41)
[2016-12-02] MEDS: LEVOTHYROXINE 100 MCG TAB PO SCH (06:41)
[2016-12-02] MEDS: PANTOPRAZOLE 40 MG TABLET PO SCH (06:42)
[2016-12-02 07:15] LABS: Anion Gap 9 mmol/L; Blood Urea Nitrogen 26 mg/dL (9-20); Calcium 8.9 mg/dL (8.4-10.2); Carbon Dioxide 39 mmol/L (22-30); Chloride 91 mmol/L (98-107); Glucose 111 mg/dL (74-99); Magnesium 2.3 mg/dL (1.6-2.3); Non-African American GFR(MDRD) >60 (>60 ml/min/1.73 sqM); Potassium 4.5 mmol/L (3.5-5.1); Sodium 139 mmol/L (137-145)
[2016-12-02] MEDS: IPRATROPIUM-ALBUTEROL 3 ML NEB INHALATION PRN ×2 (08:16→20:16)
[2016-12-02] MEDS: SYMBICORT 160-4.5 MCG INHALER INHALATION SCH ×2 (08:16→20:16)
[2016-12-02] MEDS: FUROSEMIDE 10 MG/ML 4 ML VIAL IV SCH ×2 (08:23→20:04)
[2016-12-02] MEDS: ASPIRIN 81 MG CHEW PO SCH (08:25)
[2016-12-02] MEDS: AMIODARONE 100 MG TAB PO SCH (08:25)
[2016-12-02] MEDS: FERROUS SULFATE 325 MG TAB PO SCH ×2 (08:25→20:04)
[2016-12-02] MEDS: METOPROLOL TARTRATE 25 MG TAB PO SCH ×2 (08:25→20:04)
[2016-12-02] MEDS: CLOPIDOGREL 75 MG TAB PO SCH (08:25)
[2016-12-02] MEDS ORDERED: NITROGLYCERIN SL TABS 0.4 MG TAB SUBLINGUAL PRN (08:28)
[2016-12-02] MEDS ORDERED: SPIRONOLACTONE 25 MG TAB PO SCH (09:00)
[2016-12-02] MEDS ORDERED: NON-FORMULARY DRUG (Ubidecarenone [Co Q-10] 100 MG) PO SCH (09:00)
[2016-12-02 10:04] LABS: ALT 26 U/L (21-72); AST 25 U/L (17-59); Alkaline Phosphatase 71 U/L (38-126); Total Bilirubin 0.5 mg/dL (0.2-1.3); Total Protein 6.6 g/dL (6.3-8.2)
[2016-12-02 10:38] LABS: Iron 22 ug/dL (49-181)
[2016-12-02 10:48] LABS: % Iron Saturation 10.9 % (20-50); Total Iron Binding Capacity 201 ug/dL (261-462)
[2016-12-02] MEDS: SENNOSIDES 8.6 MG TAB PO SCH (11:58)
[2016-12-02] MEDS: MULTIVITAMINS, THERA 1 EACH TAB PO SCH (11:58)
[2016-12-02] MEDS: FOLIC ACID 1 MG TAB PO SCH (11:59)
[2016-12-02] MEDS: CHOLECALCIFEROL 1,000 UNIT TAB PO SCH (11:59)
[2016-12-02] MEDS: LACTOBACILLUS ACIDOPH & BULGAR 1 EACH PACKET PO SCH (11:59)
--- NOTE | 2016-12-02 12:53 | ECHOF ---
Referral Reason:IA, ischemic cardiomyopathy MEASUREMENTS -------- HEIGHT: 170.2 cm WEIGHT: 59.0 kg BP: 105/58 RVIDd: 3.7 cm (< 3.3) IVSd: 1.1 cm (0.6 - 1.1) LVIDd: 6.6 cm (3.9 - 5.3) LVPWd: 1.0 cm (0.6 - 1.1) IVSs: 1.9 cm LVIDs: 4.8 cm LVPWs: 1.5 cm LA Diam: 3.6 cm (2.7 - 3.8) LAESV Index (A-L): 35.92 ml/m Ao Diam: 3.3 cm (2.0 - 3.7) AV Cusp: 1.6 cm (1.5 - 2.6) MV EXCURSION: 18.872 mm (> 18.000) MV EF SLOPE: 40 mm/s (70 - 150) EPSS: 1.8 cm MV E Cody: 1.07 m/s MV DecT: 142 ms MV A Cody: 0.61 m/s MV E/A Ratio: 1.75 AV maxP.87 mmHg AV meanP.47 mmHg RAP: 5.00 mmHg RVSP: 57.83 mmHg FINDINGS -------- Pacerwire seen in RV and RA. This was a technically good study. The left ventricle is mildly dilated. Left ventricular wall thickness is normal. Overall left ventricular systolic function is severely impaired with, an EF between 25 - 30 %. Basal anterior LV wall motion is akinetic. Mid anterior LV wall motion is akinetic. Mid anteroseptal LV wall motion is normal. Apical anterior LV wall motion is akinetic. Apical septum LV wall motion is akinetic. The right ventricle is mildly enlarged. LA is moderately dilated 34-39 ml/m2 The right atrium is normal in size. Aortic valve is trileaflet and is mildly thickened. Mild mitral annular calcification present. Qvkm-[id number] mitral regurgitation is present. Xwyg-ow-czpffirx tricuspid regurgitation present. There is severe pulmonary hypertension. The right ventricular systolic pressure, as measured by Doppler, is 57.83mmHg. The pulmonic valve was not well visualized. There is no pulmonic regurgitation present. The aortic root size is normal. Normal inferior vena cava with normal inspiratory collapse consistent with estimated right atrial pressure of 5 mmHg. There is no pericardial effusion. CONCLUSIONS -------- 1. Pacerwire seen in RV and RA. 2. Mild mitral annular calcification present. 3. Fazj-dp-wninjyyt tricuspid regurgitation present. 4. There is severe pulmonary hypertension. 5. The right ventricular systolic pressure, as measured by Doppler, is 57.83mmHg. 6. The pulmonic valve was not well visualized. 7. There is no pulmonic regurgitation present. 8. The aortic root size is normal. 9. Normal inferior vena cava with normal inspiratory collapse consistent with estimated right atrial pressure of 5 mmHg. 10. There is no pericardial effusion. 11. This was a technically good study. 12. The left ventricle is mildly dilated. 13. Left ventricular wall thickness is normal. 14. Overall left ventricular systolic function is severely impaired with, an EF between 25 - 30 %. 15. Mid anteroseptal LV wall motion is normal. 16. The right ventricle is mildly enlarged. 17. LA is moderately dilated 34-39 ml/m2 18. Aortic valve is trileaflet and is mildly thickened. LOST CHARGE CARD CLERK: Swapna Field RDCS
--- NOTE | 2016-12-02 15:14 | CONS ---
DATE OF CONSULTATION: oRgers Mota who is a 66-year-old gentleman admitted by Dr. Finney. Consultation requested by Dr. Finney. Patient is admitted to the hospital with increasing shortness of breath without any chest pain or pressure. Patient is known to have ischemic cardiomyopathy, history of stenting and history of anterior myocardial infarction. Suspect possible LAD was stented. I do not have confirmation, waiting for the office notes to come. Patient follows with my associate, Dr. Hollis. Patient had an ICD done by Dr. Bowden and on Friday itself and came back now today with predominant left ventricular failure and d-dimer was mildly elevated. CT of the chest ruled out any pulmonary embolism, showed some pulmonary edema on the CT. Patient denies any chest pain or pressure but the patient's troponin x3 are positive consistent with non-Q-wave myocardial infarction without any acute ischemic changes on the EKG other than the old inferior myocardial infarction and right bundle branch block. Patient was a smoker, is a nonsmoker, has been on oxygen at home at night and the patient had an anterior myocardial infarction. Patient had a heart catheterization and heart attack in June of 2015 and patient was smoking until that point and has quit smoking. The patient is very skinny, denies any chest pain or pressure or orthopnea. Patient is ( ) follows with Dr. Huo for pulmonary problems. Patient in view of non-Q-wave myocardial infarction, Pulmonary waiting for left ventricular failure to clear before we do heart catheterization. Dr. Hollis is not in the office today, probably will talk to him tomorrow, most likely Friday. The heart catheterization to assess severity of coronary artery disease and need for interventions. Patient's medications prior to admission include levothyroxine 175 mcg p.o. daily, amiodarone 100 mg p.o. daily, aspirin 81 mg, furosemide 20 mg p.o. b.i.d. prior to admission, now patient is on furosemide 40 mg IV push every 12 hours. Patient is on Symbicort inhaler 2 puffs b.i.d., ferrous sulfate 325 mg p.o. daily, cholecalciferol 1000 units daily, folic acid 1 mg daily, Atrovent and albuterol inhalers q.4 hours and Protonix 40 mg p.o. daily, senna 0.6 mg daily. Co Q-10 one hundred mg p.o. daily. Patient is also on Lipitor 40 mg, Plavix 75 mg, metoprolol 25 mg p.o. b.i.d., nitroglycerin 0.4 mg sublingual p.r.n. for chest pain. Patient's past history, review of systems are essentially unremarkable other than what is stated in the presenting illness. Patient denies any difficulties. Patient admits to having difficulties in breathing and a cough without any productive cough. Patient is an ex smoker. CARDIOVASCULAR: As above. GASTROINTESTINAL: Unremarkable. GENITOURINARY: Unremarkable. MUSCULOSKELETAL SYSTEM: Unremarkable. INTEGUMENTARY: Unremarkable. NEUROLOGIC: Unremarkable. Physical examination revealed a thin-built, 66-year-old gentleman, not in acute distress with stable vital signs with a pulse rate of 103, 85 beats per minute and regular, blood pressure of 100/56, respirations of 21. HEAD: Normocephalic. HEENT unremarkable. Neck is supple. No thyroid enlargement. No bruit noted. No JVD. CARDIAC EXAMINATION: S1 and S2. S3 gallop is noted. LUNGS: Revealed rales and rhonchi over the lung johnson, especially in the lower half of the lung johnson. ABDOMEN: Soft, no organomegaly. Active bowel sounds. EXTREMITIES: No pedal edema. 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 Decreased pedal pulses. ECG shows right bundle branch block with evidence of anteroseptal MO, age unknown and no acute ischemic changes. Troponin x3 are consistent with non-Q-wave myocardial infarction and renal functions are within normal limits. ASSESSMENT: 1. Non-Q-wave myocardial infarction with left ventricular failure. 2. Cardiomyopathy, status post ICD done on Friday by Dr. Bowden. 3. Chronic obstructive lung disease on home oxygen. 4. Hyperlipidemia. RECOMMENDATIONS: Concur with current therapy. Will discontinue the heparin and patient is asymptomatic as far as cardiac status is concerned other than the shortness of breath. No chest pain. Once the left ventricular failure improves, patient needs to go for a cardiac catheterization to assess severity of coronary artery disease and need for interventions. Dr. Hollis will do the heart catheterization in the next day or two.
[2016-12-02] MEDS: HEPARIN SODIUM,PORCINE 5,000 UNIT/ML 1 ML VIAL SQ SCH ×2 (15:27→23:12)
[2016-12-02] MEDS: ATORVASTATIN 40 MG TAB PO SCH (20:03)
--- NOTE | 2016-12-03 07:03 | HP ---
DATE OF ADMISSION: He is a FULL CODE. His data: He is a 66-year-old white male, . New Data: Height is 5 feet 7 inches. Weight 59.2 kg, BSA 1.69 sq m, BMI 20.4 kg per sq m. Allergies to HALOPERIDOL "HALDOL". HISTORY AND CHIEF COMPLAINT: Patient was brought to the hospital emergency room at [facility] by his with complaining of short of breath, could not breathe, has progressively over the last week after he had his pacemaker placed on Friday of last week. HISTORY OF PRESENT ILLNESS: Mr. Rogers Mota, he had arrhythmias associated with his cardiomyopathy and previous myocardial infarction as well as he had previous stent done at [facility]. He had evaluated cardiac-dawkins and he had to have a pacemaker was placed by Dr. Bowden last Friday. Subsequently the patient did well, however, in the following few days he became more progressively short of breath and no significant chest pain, but he could limit his activity significantly until Friday yesterday his decided to bring him to the emergency room to find out why this big change has happened to him. As mentioned is seen in the emergency room and admitted to the hospital with the underlying elevated troponin and the cardiology consultation with non-Q AR. Also found that his chest x-ray indicating that he has pulmonary edema. The chest x-ray indicating congestive heart failure with pleural effusion and has progressed compared with November 26, 2016. As patient in the emergency room as seen and evaluated by the ER physician and at that time he thought that could be associated also with pulmonary emboli and they ordered for him CT angiogram of the chest and found that he has pulmonary edema with pleural effusion and cardiomegaly consistent with congestive heart failure and no evidence of PE, no hilar masses as well. At that time the patient was started on diuresis. They consulted immediately Cardiology as well as they did the EKG and the EKG was indicating sinus rhythm with the right bundle branch block. However, there is minimal changes in the ST segment and they felt that more of non-Q AR as evaluated by the cardiology. Patient was seen in the morning by Dr. Seth Florian of cardiology and he felt that because of his acute pulmonary edema and no PE and needs to have a cardiac catheterization probably within the next 48 hours by his physician, cardiology, Dr. Hollis. Meanwhile patient was placed on heparin protocol through the emergency room and Dr. Seth Florian discontinued today. Patient has also history of COPD and he used to be a very heavy chronic smoker. He had more than 25 pack per year, however, recently he has been quit smoking completely. On the allergy, the patient has HALDOL caused confusion for him and that is the adverse effect. His recent a new pacemaker placement because of his underlying ischemic cardiomyopathy with poor ejection fraction and today he had an echocardiogram and that was indicating that patient had overall left ventricular systolic function severely impaired with the ejection fraction 25% to 30%. He had also left atrium moderately dilated with 34 to 39 mL per sq m and he has as well no pericardial effusion and normal inferior vena cava with normal inspiratory collapse consistent with estimated right atrial pressure 5 mmHg and that was read by Dr. Mcdowell. The patient also had severe pulmonary hypertension as well and he had right ventricular pressure measured by 57.83 mmHg. Note, he had the pacemaker, underwent successful dual chamber ICD implantation for primary prevention of sudden cardiac . Patient has tendency for hyperkalemia and spironolactone has been discontinued and also digoxin was discontinued by Dr. Bowden on date of service 11/25/16. HIS HOME MEDICATIONS: He was on sublingual nitroglycerin. He was also on CoQ10 and he is on Senna stool softener and Protonix 40 mg once a day. He was on multivitamin and metoprolol tartrate 25 mg twice a day, levothyroxine 175 mcg q. daily and he is on probiotics as well. He was on ipratropium albuterol DuoNeb nebulizer every 6 hour p.r.n. at home. He was on Lasix 20 mg twice a day, folic acid and iron supplementation 325 mg twice a day. 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 He is also on folic acid and ferrous sulfate and Plavix, which is clopidogrel at home and vitamin D3 and budesonide twice a day and Lipitor, aspirin and amiodarone 100 mg p.o. daily. He has been seen by pulmonary, Dr. Hou/Dr. Khalil/Dr. Pavon but his primary pulmonary doctor, Dr. Hou. On the patient's review of systems: Neuropsychiatry was negative. He felt weak generalized and short of breath. CARDIOVASCULAR: He denied any chest pain, but he was severely short of breath progressively worsening. Pulmonary mainly the shortness of breath. However, patient has underlying COPD with ex-history of smoking. GI: No hematemesis or melena or hematochezia. However, he has anemia of chronic disease. ENDOCRINE: History of hypothyroidism. MUSCULOSKELETAL: Generalized. SKIN: No rash except bruises scattered. He has history of hyperlipidemia as well. On the physical examination, as patient is conscious, alert, oriented and at the time of the examination and his at bedside as well as his son, patient able to sit up and able to talk to me as well and he stated that he urinates significantly during the night as during early hour when he was admitted due to the diuretics and he felt this improvement; however, he is still short of breath. He was already seen by the web specialist Dr. Seth Florian. On his examination, the vital signs were indicating 98.3 temperature, pulse 76, respiratory rate 18, blood pressure was 102/65 at the time of the exam and his mean pressure 77. His oxygenation was 96 and he was on 3 L nasal cannula. HEENT: Head was normocephalic and atraumatic. The oropharynx was negative. The pupils were equal and reactive. The neck was supple. No lymphadenopathy and he had mild JVD not significant. His trachea midline. The chest was increased anteroposterior diameter with scattered rhonchi, wheezes and basilar rales bilaterally, still present. HEART: He had a left infraclavicular pacemaker ICD. Heart, PMI in the fifth outside midclavicular line with the soft murmur on the left sternal border. Abdomen was soft, nontender and no tenderness in the right upper quadrant or in the spleen area. No flank tenderness. No suprapubic tenderness. EXTREMITIES: No edema and positive pulses bilateral and symmetrical on the dorsalis pedis and posterior tibial and the popliteal. The skin was no icterus and no evidence of petechiae; however, he had the scattered bruises on the upper extremities. Patient with the history of atrial fibrillation as well paroxysmal. THE LABORATORIES: The laboratory as he arrived to the hospital found that he has anemia with the hemoglobin 8.2 with a white count 9.7 and the platelet count was 316 and subsequently his white count is 8.3 and today the hemoglobin dropped to 7.5 with hematocrit is 23.9 and the MCV is 109.2. He has been on the heparin at the time he was PTT 53, PT 11.6, INR 1.2 and at that time the heparin infusion has been discontinued and we started him on subcu heparin for DVT prophylaxis. His chemistry on admission his potassium was 5.2. However, subsequently is 4.5 normal and his BUN was 26 and creatinine 1.1 with estimated glomerular filtration rate more than 60 for non-. His magnesium was slightly elevated 2.6 on admission, however, subsequent labs indicating 2.3 only. The iron study was indicating the serum iron 22 and total iron-binding capacity was 291 and his saturation was 10.9, which is low and he had serum ferritin 343. He has normal liver enzyme with AST 25, ALT 26, alkaline phosphatase 71 and he had CK-MB 3.3 yesterday on the 01 of December and troponin was elevated 0.213 and for 4 drawings indicating all was elevated to the second one was 0.221, third one was 0.244 and the fourth one 0.258. His B-type natriuretic peptide [place] initially [id number] and subsequently is 18,000 with the underlying congestive heart failure. His albumin is 3.2. His protein is 6.6. He has an admission influenzae A and B PCR, which was not detected. UNDERLYING IMPRESSION: 1. Acute non-Q myocardial infarction. 2. Ischemic cardiomyopathy with severe systolic function impairment. 3. Underlying status post pacemaker placed ICD for sudden as well as with a history of paroxysmal atrial fibrillation. 4. Congestive heart failure is mainly systolic and acute on top of chronic with decompensation and shortness of breath. 5. Underlying chronic obstructive pulmonary disease with pulmonary hypertension. 6. No evidence of pulmonary emboli. 7. Hypothyroidism. PLAN: Patient admitted to the hospital and monitored with the telemetry, subcu heparin for DVT prophylaxis, diuresis and consultation with the web specialist and discussed with the patient and his and his son and we will be watching patient with prognosis guarded with severe systolic dysfunction. Patient has a stent already done in [facility] and probability of cardiac cath will be done in the hospital within the next 48 hour or 72 hours depends on Cardiology and meanwhile we will be monitoring the patient as well. Today's service: 12/02/2016.
[2016-12-03] MEDS: AMIODARONE 100 MG TAB PO SCH (07:53)
[2016-12-03] MEDS: CLOPIDOGREL 75 MG TAB PO SCH (07:53)
[2016-12-03] MEDS: SENNOSIDES 8.6 MG TAB PO SCH (07:54)
[2016-12-03] MEDS: LEVOTHYROXINE 100 MCG TAB PO SCH (07:54)
[2016-12-03] MEDS: LEVOTHYROXINE 75 MCG TAB PO SCH (07:54)
[2016-12-03] MEDS: FERROUS SULFATE 325 MG TAB PO SCH ×2 (07:54→21:34)
[2016-12-03] MEDS: PANTOPRAZOLE 40 MG TABLET PO SCH (07:54)
[2016-12-03] MEDS: CHOLECALCIFEROL 1,000 UNIT TAB PO SCH (07:54)
[2016-12-03] MEDS: FOLIC ACID 1 MG TAB PO SCH (07:54)
[2016-12-03] MEDS: FUROSEMIDE 10 MG/ML 4 ML VIAL IV SCH (07:54)
[2016-12-03] MEDS: ASPIRIN 81 MG CHEW PO SCH (07:55)
[2016-12-03] MEDS: METOPROLOL TARTRATE 25 MG TAB PO SCH ×2 (07:55→21:36)
[2016-12-03] MEDS: MULTIVITAMINS, THERA 1 EACH TAB PO SCH (07:56)
[2016-12-03] MEDS: HEPARIN SODIUM,PORCINE 5,000 UNIT/ML 1 ML VIAL SQ SCH ×2 (07:56→15:15)
[2016-12-03] MEDS: IPRATROPIUM-ALBUTEROL 3 ML NEB INHALATION PRN ×2 (08:06→18:21)
[2016-12-03] MEDS: SYMBICORT 160-4.5 MCG INHALER INHALATION SCH ×2 (08:07→18:20)
[2016-12-03] MEDS: LACTOBACILLUS ACIDOPH & BULGAR 1 EACH PACKET PO SCH (11:25)
--- NOTE | 2016-12-03 14:37 | P.PN ---
Subjective There is a dictation by Dr. Sharmin Alfaro FACP on the follow-up progress note dictated 12/03/2016. Patient seen and evaluated [id number]. Patient admitted with acute congestive heart failure with the impairment of systolic function with ejection fraction 25% with a history of ischemic cardiomyopathy with acute exacerbation of congestive heart failure systolic in nature. Patient had high level of troponin with the underlying acute non-Q wave PR which probability recent. Patient had history of plus Friday 1 week ago he had underlying AICD pacemaker and defibrillator was placed by Dr. Bowden, patient feels good at that time and subsequently as the week goes on started to have the shortness of breath and progressively worse until he came to the ER on last Friday. Patient has history of COPD with history of chronic smoker he quit smoking at this time probably now for 1 year prior to that he was smoking 2 pack per day. With the has been taking care of by . On admission his troponin was elevated as mentioned above and he had a chest x- ray was pulmonary edema. On the exam today patient was comfortable no significant shortness of breath he's able to walk without significantly weak weakness or tiredness he goes to the bathroom. On exam conscious alert oriented 3 able to communicate freely without shortness of breath. His HEENT was negative neck was supple and no JVD no thyromegaly no lymphadenopathy trachea midline. Chest is clear in the upper lung johnson in the lower lung field still he has some bronchitis and rales bilaterally the abdomen is soft and nontender positive bowel sounds no organ enlargement and extremities no edema and positive pulses bilateral and symmetrical. This Assessment patient with acute congestive heart failure systolic function impairment by the echocardiogram done on this admission, and acute myocardial infarction non-Q PR with elevated troponin. And seen by cardiology as well and Dr. Lindo will be planning for for further cardiac catheterization for evaluation and possible stenting if needed patient had stent intake for the hospital within the last year. Plan we'll continue the current treatment. And obtaining lab for a.m. and will see cardiology if they have any new plan for investigation. Objective - Vital Signs Vital signs: Vital Signs Temp 97.9 F 12/03/16 08:00 Pulse 70 12/03/16 11:40 Resp 18 12/03/16 11:40 BP 94/57 12/03/16 11:40 Pulse Ox 100 12/03/16 11:40 Intake & Output 12/02/16 12/03/16 12/03/16 18:59 06:59 18:59 Intake Total 520 300 380 Output Total 175 1000 Balance 345 -700 380 Weight 58.1 kg 58.1 kg Intake: IV 500 0 Heparin Sodium,Porcine/ 269 D5w Pmx 25,000 unit In Dextrose/Water 1 500ml. bag @ 12 UNITS/KG/HR 15. 24 mls/hr IV .Q24H [facility] Rx #:[id number] NS 231 0 Oral 20 300 380 Output: Urine 175 1000 Other: Voiding Method Urinal # Voids 1 - Labs CBC & Chem 7: 12/02/16 05:25 12/02/16 05:25
--- NOTE | 2016-12-03 14:55 | P.PN ---
Subjective Principal diagnosis: Congestive heart failure This is a 66-year-old gentleman with known history of severe ischemic cardiomyopathy, paroxysmal atrial fibrillation, recent AICD implantation, dual- chamber, by Dr. Bowden on November 25 of this year. Patient also has history of hyperlipidemia, coronary artery disease, patient had a heart catheterization in 2014 which revealed a 60% distal left main, 100% ostial LAD, 70% circumflex, and 90% mid RCA, patient had a balloon pump placed at that time, was transferred out and underwent left main stenting. He presented to the hospital on this occasion with symptoms of progressively worsening shortness of breath. His initial BNP on presentation here was 13,900, this morning it is 18,000. Troponin 0.2, 0.2, 0.2, 0.2. Troponins not consistent with acute coronary syndrome. Urine output is marginal. He is currently on IV Lasix 40 mg twice a day. We will increase that to 80 IV twice a day today. Objective - Vital Signs Vital signs: Vital Signs Temp 97.9 F 12/03/16 08:00 Pulse 70 12/03/16 11:40 Resp 18 12/03/16 11:40 BP 94/57 12/03/16 11:40 Pulse Ox 100 12/03/16 11:40 Intake & Output 12/02/16 12/03/16 12/03/16 18:59 06:59 18:59 Intake Total 520 300 380 Output Total 175 1000 Balance 345 -700 380 Weight 58.1 kg 58.1 kg Intake: IV 500 0 Heparin Sodium,Porcine/ 269 D5w Pmx 25,000 unit In Dextrose/Water 1 500ml. bag @ 12 UNITS/KG/HR 15. 24 mls/hr IV .Q24H [facility] Rx #:[id number] NS 231 0 Oral 20 300 380 Output: Urine 175 1000 Other: Voiding Method Urinal # Voids 1 - Exam PHYSICAL EXAMINATION: HEENT: Head is atraumatic, normocephalic. Pupils equal, round. Neck is supple. There is elevated jugular venous pressure. HEART EXAMINATION: Heart S1, S2 systolic murmur . No murmur or gallop heard. CHEST EXAMINATION:[ Lungs are clear anteriorly with fine rales bilaterally to the bases. Diminished air entry bilaterally. ABDOMEN: Soft, nontender. Bowel sounds are heard. No organomegaly noted. EXTREMITIES: 2+ peripheral pulses with trace evidence of peripheral edema and no calf tenderness noted. NEUROLOGIC patient is awake, alert and oriented -3. . - Labs CBC & Chem 7: 12/02/16 05:25 12/02/16 05:25 Assessment and Plan (1) Systolic CHF, acute on chronic Status: Acute (2) Hyperlipemia Status: Acute (3) Ischemic cardiomyopathy Status: Acute (4) Paroxysmal a-fib Status: Acute (5) Presence of stent in LAD coronary artery Status: Acute (6) Tachycardia Status: Acute (7) AICD (automatic cardioverter/defibrillator) present Status: Acute Plan: From cardiology's perspective, we'll increase the IV Lasix to 80 mg twice a day , continue to monitor intake and output along with daily weights. DNP note has been reviewed, I agree with a documented findings and plan of care. Patient was seen and examined.
[2016-12-03] MEDS: POLYETHYLENE GLYCOL 3350 17 GM POWD.PACK PO SCH (15:15)
[2016-12-03] MEDS: SODIUM FERRIC GLUCONAT-SUCROSE 125 MG in SODIUM CHLORIDE 0.9% 100 ML IVPB SCH (16:30)
[2016-12-03] MEDS: ATORVASTATIN 40 MG TAB PO SCH (21:34)
[2016-12-03] MEDS: FUROSEMIDE 10 MG/ML 10 ML VIAL IV SCH (21:34)
[2016-12-04] MEDS: HEPARIN SODIUM,PORCINE 5,000 UNIT/ML 1 ML VIAL SQ SCH ×4 (00:37→22:47)
[2016-12-04] MEDS: IPRATROPIUM-ALBUTEROL 3 ML NEB INHALATION PRN ×3 (05:53→19:16)
[2016-12-04] MEDS: SYMBICORT 160-4.5 MCG INHALER INHALATION SCH ×2 (05:53→19:16)
[2016-12-04] MEDS: PANTOPRAZOLE 40 MG TABLET PO SCH (06:25)
[2016-12-04] MEDS: AMIODARONE 100 MG TAB PO SCH (06:25)
[2016-12-04] MEDS: METOPROLOL TARTRATE 25 MG TAB PO SCH ×2 (06:25→20:42)
[2016-12-04] MEDS: LEVOTHYROXINE 75 MCG TAB PO SCH (06:25)
[2016-12-04] MEDS: ASPIRIN 81 MG CHEW PO SCH (06:25)
[2016-12-04] MEDS: CLOPIDOGREL 75 MG TAB PO SCH ×2 (06:25→06:52)
[2016-12-04] MEDS: FERROUS SULFATE 325 MG TAB PO SCH ×2 (06:26→20:42)
[2016-12-04 06:49] LABS: Aty Lym Flag Slight; CH 32.7; CHCM 31.7; HCT 24.8 % (39.0-53.0); HDW 2.59; HGB 7.8 gm/dL (13.0-17.5); Hypochromasia Slight; MCH 32.7 pg (25.0-35.0); MCHC 31.5 g/dL (31.0-37.0); MCV 103.7 fL (80.0-100.0); Macrocytosis Slight; RBC 2.39 m/uL (4.30-5.90); RDW 13.1 % (11.5-15.5); Reticulocyte % 0.8 % (0.5-2.0); WBC 6.4 k/uL (3.8-10.6); WBC (Perox) 6.81
[2016-12-04] MEDS: LEVOTHYROXINE 100 MCG TAB PO SCH (06:52)
[2016-12-04 07:05] LABS: Blood Urea Nitrogen 28 mg/dL (9-20); Calcium 9.1 mg/dL (8.4-10.2); Chloride 87 mmol/L (98-107); Glucose 94 mg/dL (74-99); Magnesium 2.4 mg/dL (1.6-2.3); Non-African American GFR(MDRD) 58 (>60 ml/min/1.73 sqM); Potassium 4.6 mmol/L (3.5-5.1); Sodium 141 mmol/L (137-145)
[2016-12-04 07:11] LABS: Anion Gap 11 mmol/L
[2016-12-04 07:34] LABS: Carbon Dioxide 43 mmol/L (22-30)
[2016-12-04 08:00] LABS: Add Differential Manual Differential
[2016-12-04 08:02] LABS: Manual Review Performed; Nucleated Red Blood Cells 0 /100 WBC (0-0); Total Cells Counted 100
[2016-12-04] MEDS: POLYETHYLENE GLYCOL 3350 17 GM POWD.PACK PO SCH (09:30)
[2016-12-04] MEDS: FUROSEMIDE 10 MG/ML 10 ML VIAL IV SCH ×2 (09:31→20:42)
[2016-12-04] MEDS: SENNOSIDES 8.6 MG TAB PO SCH (09:31)
[2016-12-04] MEDS: FOLIC ACID 1 MG TAB PO SCH (09:31)
[2016-12-04] MEDS: CHOLECALCIFEROL 1,000 UNIT TAB PO SCH (09:31)
[2016-12-04] MEDS: LACTOBACILLUS ACIDOPH & BULGAR 1 EACH PACKET PO SCH (09:32)
[2016-12-04] MEDS: MULTIVITAMINS, THERA 1 EACH TAB PO SCH (09:32)
--- NOTE | 2016-12-04 15:36 | P.PN ---
Subjective Principal diagnosis: Congestive heart failure This is a 66-year-old gentleman with known history of severe ischemic cardiomyopathy, paroxysmal atrial fibrillation, recent AICD implantation, dual- chamber, by Dr. Bowden on November 25 of this year. Patient also has history of hyperlipidemia, coronary artery disease, patient had a heart catheterization in 2014 which revealed a 60% distal left main, 100% ostial LAD, 70% circumflex, and 90% mid RCA, patient had a balloon pump placed at that time, was transferred out and underwent left main stenting. He presented to the hospital on this occasion with symptoms of progressively worsening shortness of breath. His initial BNP on presentation here was 13,900, went up to 18,000. Dose of IV Lasix was increased. Weight down 2 kg today. Jett Globin 7.8. Potassium 4.6, BUN 28, creatinine 1.2. Magnesium level 2.4. Patient feeling much better overall today. The pressure 94/50, heart rate in the 70s, 94% on 2 L of oxygen. We'll continue 80 mg of IV Lasix for 24 hours. Check lytes BUN and creatinine in the morning. Objective - Vital Signs Vital signs: Vital Signs Temp 97.5 F L 12/04/16 08:00 Pulse 76 12/04/16 15:00 Resp 18 12/04/16 15:00 BP 94/51 12/04/16 15:00 Pulse Ox 94 L 12/04/16 15:00 Intake & Output 12/03/16 12/04/16 12/04/16 18:59 06:59 18:59 Intake Total 620 480 Output Total 2500 Balance 620 -2500 480 Weight 58.1 kg 56.9 kg Intake: Oral 620 480 Output: Urine 2500 Other: Voiding Method Urinal # Voids 0 - Exam PHYSICAL EXAMINATION: HEENT: Head is atraumatic, normocephalic. Pupils equal, round. Neck is supple. There is elevated jugular venous pressure. HEART EXAMINATION: Heart S1, S2 systolic murmur . No murmur or gallop heard. CHEST EXAMINATION: Lungs are clear to auscultation and percussion. ABDOMEN: Soft, nontender. Bowel sounds are heard. No organomegaly noted. EXTREMITIES: 2+ peripheral pulses with trace evidence of peripheral edema and no calf tenderness noted. NEUROLOGIC patient is awake, alert and oriented -3. . - Labs CBC & Chem 7: 12/04/16 06:15 12/04/16 06:15 Labs: Abnormal Lab Results - Last 24 Hours (Table) 12/04/16 12/04/16 Range/Units 06:15 06:15 RBC 2.39 L (4.30-5.90) m/uL Hgb 7.8 L (13.0-17.5) gm/dL Hct 24.8 L (39.0-53.0) % MCV 103.7 H (80.0-100.0) fL Chloride 87 L (98-107) mmol/L Carbon Dioxide 43 H* (22-30) mmol/L BUN 28 H (9-20) mg/dL Creatinine 1.26 H (0.66-1.25) mg/dL Magnesium 2.4 H (1.6-2.3) mg/dL Assessment and Plan (1) Systolic CHF, acute on chronic Status: Acute (2) Hyperlipemia Status: Acute (3) Ischemic cardiomyopathy Status: Acute (4) Paroxysmal a-fib Status: Acute (5) Presence of stent in LAD coronary artery Status: Acute (6) Tachycardia Status: Acute (7) AICD (automatic cardioverter/defibrillator) present Status: Acute Plan: From cardiology's perspective, we'll continue the IV Lasix to 80 mg twice a day for 24 hours, continue to monitor intake and output along with daily weights. DNP note has been reviewed, I agree with a documented findings and plan of care. Patient was seen and examined.
[2016-12-04] MEDS: SODIUM FERRIC GLUCONAT-SUCROSE 125 MG in SODIUM CHLORIDE 0.9% 100 ML IVPB SCH (16:16)
[2016-12-04] MEDS: ATORVASTATIN 40 MG TAB PO SCH (20:42)
[2016-12-04] MEDS ORDERED: FUROSEMIDE 10 MG/ML 4 ML VIAL IV SCH (21:00)
--- NOTE | 2016-12-05 06:21 | PN ---
DATE OF SERVICE: 12/04/2016 A white male, . DATA: He is a FULL CODE. Height 5 feet 7 inches. Weight 56.9 kg, BSA 1.66 sq m. BMI 19.6 kg per sq m. His allergy is HALDOL. Patient seen today and evaluated. Discussed with the patient as well as discussed with Dr. Seth Florian who is the cardiology rounder of this week. Also discussed with Dr. Gomes who is PA for cardiology as well. Patient currently feels much gradual improvement from the shortness of breath as well as his activity is improving. His vital signs are indicating that his blood pressure 94/51, with a mean pressure of 65. His oxygen saturation is 94% on 2 L nasal cannula. His heart rate is 70 per minute and nonlabored respiratory rate 18 per minute. Currently, his laboratory indicating today that he has white count WBC 6.4, hemoglobin 7.8, which is improved from yesterday 7.5 and his hematocrit 24.8 improved from yesterday 23.9. He has also had mild increased in carbon dioxide with carbon dioxide retainer and his sodium was normal 141, potassium 4.1 and chloride 87. He has also BUN 28 from 26 and today his creatinine went up to 1.26, probably associated with the diuresis, as he has been on Lasix 80 mg twice a day. I did discuss with Cardiology today regarding decreasing the dose of the Lasix with the patient started volume contraction with mild elevation of the creatinine also his magnesium went up to 2.4. He has his albumin 3.2 and the TSH was 0.490 and he has been on thyroid medication for hypothyroidism. His temperature today is 97.5 and pulse was 70 and the right heart rate is regular sinus. The patient has been in the past in atrial fibrillation and he had AICD placed [address] Bowden. With the respiratory stated shallow with a blood pressure 94/51; prior to that was 102/62. The chest x-ray on 12/01 indicating congestive heart failure with pleural effusion as compared for the chest x-ray on 11/26/2016. His echocardiogram was indicating that his ejection fraction was 25% to 30% with severe systolic dysfunction and impaired. He had also mid anteroseptal left ventricular wall motion is normal and he had right ventricle is mildly enlarged. The left atrium moderately dilated 34 to 39 mL per sq m by the echocardiogram. His aortic valve is trileaflet. He had normal inferior vena cava with normal inspiratory collapse consistent with estimated right atrial pressure 5 mmHg. No pericardial effusion and the ventricle mildly dilated and also found that his right ventricular systolic pressure by Doppler 57.83, which is indicating severe pulmonary hypertension. His urine output on the total was 1700 and on the urine output 800 mL for the first 8 hours. His weight has been decreasing by the diuresis and he was on the 03 of December 58.1 kg currently is 56.9 kg. His negative balance on the at 6:59 a.m. was 1880. His hemoglobin is improved with iron with minimal elevation with the underlying anemia. His stool for Hemoccult was so far negative with the serum iron 22 and TIBC 201 and saturation 10.9 which indicates to me that he has underlying anemia of chronic disease as well as mild iron deficiency, could be mixed picture. Patient started on the iron supplement. On the physical exam, the patient seen and evaluated, discussed with him in detail as mentioned above. HEENT: Head was normocephalic, atraumatic. Pupils equal, reactive. Conjunctivae pink. Sclerae anicteric. Oropharynx was negative and able to swallow and eat. The neck was supple. No JVD. No thyromegaly. No lymphadenopathy. Trachea midline. The chest was not much improvement of aeration of the lungs and heart at this time still had minimal basilar rales with the possibility of underlying chronic congestive heart failure. The abdomen was soft, nontender. Positive bowel sounds. EXTREMITIES: No edema. There is no evidence of tenderness on the liver or engorged ( ) neck vein. ASSESSMENT: 1. The patient currently improvement gradually with the underlying admitted with acute non-Q- myocardial infarction with elevated troponin. 2. No chest pain. 3. Acute congestive heart failure, systolic on the top of chronic with the impaired ejection fraction. 4. Underlying chronic obstructive pulmonary disease with exacerbation and hypoxemia and that is chronic with the chronic oxygen supplementation. 5. Underlying history of hypothyroidism as well. 6. Currently, patient creatinine was mildly elevated associated with the Lasix IV 80 mg twice a day. We will be cutting down the IV Lasix to 40 mg twice a day and will check if he had a chest x-ray today or did not have one and we will plan for having a chest x-ray tomorrow if he did not have a chest x-ray today. I could not find it on the computer. PLAN: We will continue the current treatment. Tomorrow Dr. Hollis cardiology will see the patient and evaluate if he needs further cardiac catheterization and further decision depends on the general condition.
[2016-12-05] MEDS: PANTOPRAZOLE 40 MG TABLET PO SCH (06:41)
[2016-12-05] MEDS: LEVOTHYROXINE 75 MCG TAB PO SCH (06:41)
[2016-12-05] MEDS: LEVOTHYROXINE 100 MCG TAB PO SCH (06:41)
[2016-12-05 07:12] LABS: Blood Urea Nitrogen 26 mg/dL (9-20); Calcium 9.5 mg/dL (8.4-10.2); Chloride 83 mmol/L (98-107); Glucose 90 mg/dL (74-99); Magnesium 2.4 mg/dL (1.6-2.3); Non-African American GFR(MDRD) 53 (>60 ml/min/1.73 sqM); Potassium 4.2 mmol/L (3.5-5.1); Sodium 140 mmol/L (137-145)
[2016-12-05 07:18] LABS: Anion Gap 10 mmol/L
[2016-12-05 07:31] LABS: Carbon Dioxide 47 mmol/L (22-30)
[2016-12-05 07:48] LABS: Basophils % (A) 1 %; CH 32.5; CHCM 31.5; Eosinophils # (A) 0.4 k/uL (0-0.7); Eosinophils % (A) 4 %; HCT 25.9 % (39.0-53.0); HDW 2.56; HGB 8.5 gm/dL (13.0-17.5); Hypochromasia Slight; Luc # (Auto) 0.31; Luc % (Auto) 4; Lymphocytes # (A) 1.6 k/uL (1.0-4.8); Lymphocytes % (A) 20 %; MCH 33.9 pg (25.0-35.0); MCHC 32.7 g/dL (31.0-37.0); MCV 103.6 fL (80.0-100.0); Macrocytosis Slight; Mean Platelet Volume 7.6; Monocytes # (A) 0.6 k/uL (0-1.0); Monocytes % (A) 8 %; Neutrophils # (A) 5.1 k/uL (1.3-7.7); Neutrophils % (A) 64 %; RDW 13.4 % (11.5-15.5); WBC (Perox) 8.27
--- NOTE | 2016-12-05 08:08 | XR ---
EXAMINATION TYPE: XR chest 2V DATE OF EXAM: 12/05/2016 6:25 AM COMPARISON: NONE HISTORY: Shortness of breath TECHNIQUE: Frontal and lateral views of the chest are obtained. FINDINGS: Scattered senescent parenchymal changes noted. Hyperinflation compatible with COPD. Right middle lobe infiltrate persists although is much improved. Persistent small right-sided pleural effusion. Heart size is stable. Mediastinal structures are stable and grossly unremarkable. No evidence for hilar prominence. Degenerative changes dorsal spine. IMPRESSION: 1. Right middle lobe infiltrate persists although is much improved. Persistent small right-sided pleu ral effusion.
[2016-12-05] MEDS: SYMBICORT 160-4.5 MCG INHALER INHALATION SCH ×2 (08:09→20:51)
[2016-12-05] MEDS: IPRATROPIUM-ALBUTEROL 3 ML NEB INHALATION PRN ×3 (08:09→20:51)
[2016-12-05] MEDS ORDERED: FUROSEMIDE 10 MG/ML 4 ML VIAL IV SCH (09:00)
[2016-12-05] MEDS: POLYETHYLENE GLYCOL 3350 17 GM POWD.PACK PO SCH (09:03)
[2016-12-05] MEDS: AMIODARONE 100 MG TAB PO SCH (09:06)
[2016-12-05] MEDS: FERROUS SULFATE 325 MG TAB PO SCH ×2 (09:06→19:57)
[2016-12-05] MEDS: SENNOSIDES 8.6 MG TAB PO SCH (09:07)
[2016-12-05] MEDS: METOPROLOL TARTRATE 25 MG TAB PO SCH ×2 (09:07→19:57)
[2016-12-05] MEDS: ASPIRIN 81 MG CHEW PO SCH (09:07)
[2016-12-05] MEDS: CLOPIDOGREL 75 MG TAB PO SCH (09:07)
[2016-12-05] MEDS: HEPARIN SODIUM,PORCINE 5,000 UNIT/ML 1 ML VIAL SQ SCH ×3 (09:09→23:22)
--- NOTE | 2016-12-05 11:29 | P.PN ---
Subjective Principal diagnosis: Congestive heart failure This is a 66-year-old gentleman with known history of severe ischemic cardiomyopathy, paroxysmal atrial fibrillation, recent AICD implantation, dual- chamber, by Dr. Bowden on November 25 of this year. Patient also has history of hyperlipidemia, coronary artery disease, patient had a heart catheterization in 2014 which revealed a 60% distal left main, 100% ostial LAD, 70% circumflex, and 90% mid RCA, patient had a balloon pump placed at that time, was transferred out and underwent left main stenting. He presented to the hospital on this occasion with symptoms of progressively worsening shortness of breath. His initial BNP on presentation here was 13,900, went up to 18,000 down to 7100 today. Stool for occult blood negative. Continues to diurese well. Creatinine today 1.3. Blood pressure this morning 106/60 with a heart rate in the 70s. Hemoglobin 8.5. Patient overall feeling significantly better today. Objective - Vital Signs Vital signs: Vital Signs Temp 97.3 F L 12/05/16 08:55 Pulse 73 12/05/16 08:55 Resp 16 12/05/16 08:55 BP 97/53 12/05/16 08:55 Pulse Ox 96 12/05/16 08:55 Intake & Output 12/04/16 12/05/16 12/05/16 18:59 06:59 18:59 Intake Total 480 600 120 Output Total 650 Balance 480 -50 120 Weight 57.1 kg Intake: Oral 480 600 120 Output: Urine 650 Other: # Voids 0 - Exam PHYSICAL EXAMINATION: HEENT: Head is atraumatic, normocephalic. Pupils equal, round. Neck is supple. There is elevated jugular venous pressure. HEART EXAMINATION: Heart S1, S2 systolic murmur . No murmur or gallop heard. CHEST EXAMINATION: Lungs are clear to auscultation and percussion. ABDOMEN: Soft, nontender. Bowel sounds are heard. No organomegaly noted. EXTREMITIES: 2+ peripheral pulses with trace evidence of peripheral edema and no calf tenderness noted. NEUROLOGIC patient is awake, alert and oriented -3. . - Labs CBC & Chem 7: 12/05/16 06:32 12/05/16 06:32 Labs: Abnormal Lab Results - Last 24 Hours (Table) 12/05/16 12/05/16 Range/Units 06:32 06:32 RBC 2.50 L (4.30-5.90) m/uL Hgb 8.5 L (13.0-17.5) gm/dL Hct 25.9 L (39.0-53.0) % MCV 103.6 H (80.0-100.0) fL Chloride 83 L (98-107) mmol/L Carbon Dioxide 47 H* (22-30) mmol/L BUN 26 H (9-20) mg/dL Creatinine 1.36 H (0.66-1.25) mg/dL Magnesium 2.4 H (1.6-2.3) mg/dL Assessment and Plan (1) Systolic CHF, acute on chronic Status: Acute (2) Hyperlipemia Status: Acute (3) Ischemic cardiomyopathy Status: Acute (4) Paroxysmal a-fib Status: Acute (5) Presence of stent in LAD coronary artery Status: Acute (6) Tachycardia Status: Acute (7) AICD (automatic cardioverter/defibrillator) present Status: Acute Plan: From cardiology's perspective, we'll discontinue the IV Lasix and start the patient on oral diuretics today. Plan for possible discharge home in 24 hours if stable. DNP note has been reviewed, I agree with a documented findings and plan of care. Patient was seen and examined.
[2016-12-05] MEDS: CHOLECALCIFEROL 1,000 UNIT TAB PO SCH (12:10)
[2016-12-05] MEDS: FUROSEMIDE 40 MG TAB PO SCH ×2 (12:10→17:32)
[2016-12-05] MEDS: LACTOBACILLUS ACIDOPH & BULGAR 1 EACH PACKET PO SCH (12:10)
[2016-12-05] MEDS: FOLIC ACID 1 MG TAB PO SCH (12:10)
[2016-12-05] MEDS: MULTIVITAMINS, THERA 1 EACH TAB PO SCH (12:10)
[2016-12-05] MEDS: LISINOPRIL 2.5 MG TAB PO SCH (12:10)
--- NOTE | 2016-12-05 13:54 | P.CNPUL ---
History of Present Illness Consult date: 12/05/16 Reason for consult: dyspnea, abnormal CXR/CT, other Chief complaint: Shortness of breath History of present illness: This is a 66-year-old male well-known to me. He has a history of underlying COPD, heart failure, hypertension, myocardial infarction, and hypothyroidism. The patient is admitted to the hospital with complaints of shortness of breath. The patient did not have any fever or chills. Coughing a bit. Not producing much or any phlegm. The patient was thought to have heart failure and maybe also non-ST segment elevation myocardial infarction and that his EKG did not show ST segment elevation but his troponins were mildly elevated. The patient' s feeling much better now. I was consulted primarily because of the residual infiltrate in the right lung. Did not appear that he really came in with anything that was suggestive of a pneumonia but rather primarily cardiac in nature. I believe probably what were seeing on x-ray is residual infiltrate in the right lung probably related to asymmetric resolving pulmonary edema. The patient states he is feeling much better. Hopefully be able to be discharged tomorrow. He does have underlying COPD which appears not to be particularly active at this time. Not having any chest pain or chest discomfort. No fever no chills. No nausea vomiting or diarrhea. Review of Systems A total point review review of systems is positive for shortness breath minimal cough minimal phlegm production all of which have significantly improved. He is not really having much or any of those symptoms at the current time. No chest pain no chest discomfort. No palpitations. There is no fever chills nausea vomiting or diarrhea. Past Medical History Past Medical History: Heart Failure, COPD, Hypertension, Myocardial Infarction ( [place]), Renal Disease, Thyroid Disorder, Hypertension, Myocardial Infarction (IA), Thyroid Disorder Additional Past Medical History / Comment(s): anemia, coumadin toxicity, hypoxia , weakness, dehydration, ASHD, SACROCOCCYGEAL PRESSURE ULCER-healed,pulmonaty HTN, hypothyroidism, beginnings of cataracts bilaterally, X-smoker, home O2 ( 2LNC- PRN), C-diff (09/22/15) Last Myocardial Infarction Date:: 06/24/15 History of Any Multi-Drug Resistant Organisms: C-DIFF Date of last positivie culture/infection: 09/22/2015 MDRO Source:: STOOL Past Surgical History: Heart Catheterization With Stent, Orthopedic Surgery, Pacemaker Additional Past Surgical History / Comment(s): 1996 L shoulder rotator cuff surgery, colonoscopy with benign polypectomy.heart stent x1, Pacer 11/25/16 Past Anesthesia/Blood Transfusion Reactions: No Reported Reaction Additional Past Anesthesia/Blood Transfusion Reaction / Comment(s): Pt has never received blood. Date of Last Stent Placement:: 06/2015 Type of Cardiac Device: Permanent Pacemaker Device Placement Date:: 11/25/2016 Past Psychological History: No Psychological Hx Reported Additional Psychological History / Comment(s): PT CURRENTLY PATIENT AT [facility] Smoking Status: Former smoker Past Alcohol Use History: None Reported Additional Past Alcohol Use History / Comment(s): Pt states he quit smoking when he had his IA. He started smoking in 1968 and was a ppd smoker until then. Patient denies any medical marijuana, street drug use. He denies any alcohol use. alcohol use. 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 Patient lives at home with his . No service. No pets in the home. Past Drug Use History: None Reported - Past Family History Father Family Medical History: Coronary Artery Disease (CAD), Myocardial Infarction (IA ) Additional Family Medical History / Comment(s): Father at age 86yrs. He had a CABG Mother Family Medical History: Cancer Additional Family Medical History / Comment(s): Mother in her 30's of breast cancer. Medications and Allergies Home Medications Medication Instructions Recorded Confirmed Type Levothyroxine Sodium [Synthroid] 175 mcg PO DAILY 06/23/15 12/01/16 History Multivitamins, Thera [Multivitamin 1 tab PO DAILY 06/24/15 12/01/16 History (formulary)] Amiodarone [Cordarone] 100 mg PO DAILY 09/04/15 12/01/16 History Aspirin 81 mg PO DAILY 09/04/15 12/01/16 History Furosemide [Lasix] 20 mg PO BID 09/04/15 12/01/16 History Budesonide/Formoterol Fumarate 2 puff INHALATION RT-BID 09/29/15 12/01/16 History [Symbicort 160-4.5 Mcg Inhaler] Ferrous Sulfate [Iron (65 MG 325 mg PO BID 10/04/15 12/01/16 History Elemental)] Cholecalciferol [Vitamin D3] 1,000 unit PO DAILY 10/29/16 12/01/16 History Folic Acid 1 mg PO DAILY 10/29/16 12/01/16 History Ipratropium-Albuterol Nebulize 3 ml INHALATION RT-Q6H PRN 10/29/16 12/01/16 History [Duoneb 0.5 mg-3 mg/3 ml Soln] L.acidoph,Paracasei, B.lactis 1 each PO DAILY 10/29/16 12/01/16 History [Probiotic] Pantoprazole [Protonix] 40 mg PO DAILY 10/29/16 12/01/16 History Sennosides [Senna] 8.6 mg PO DAILY 10/29/16 12/01/16 History Ubidecarenone [Co Q-10] 100 mg PO DAILY 10/29/16 12/01/16 History Allergies Allergy/AdvReac Type Severity Reaction Status Date / Time haloperidol [From Haldol] AdvReac Confusion Verified 12/01/16 21:28 Physical Exam Osteopathic Statement: *. No significant issues noted on an osteopathic structural exam other than those noted in the History and Physical/Consult. Vitals: Vital Signs Temp Pulse Pulse Resp BP Pulse Ox 12/05/16 13:31 72 12/05/16 13:19 72 12/05/16 12:30 97.1 F L 67 18 95/52 99 12/05/16 08:55 97.3 F L 73 16 97/53 96 12/05/16 08:18 70 12/05/16 08:10 68 12/05/16 03:19 98 F 65 16 106/62 92 L 12/05/16 00:00 70 16 89/52 95 12/04/16 20:00 97.9 F 73 16 100/52 94 L 12/04/16 19:31 70 12/04/16 19:19 70 12/04/16 15:00 76 18 94/51 94 L Intake and Output 12/04/16 12/05/16 12/05/16 22:59 06:59 14:59 Intake Total 600 120 Output Total 250 400 325 Balance -250 200 -205 Intake: Oral 600 120 Output: Urine 250 400 325 Other: # Voids 1 Weight 57.1 kg No acute distress, oriented 3. HEENT examination is grossly unremarkable. Mucous membranes are moist. No oral lesions. Neck supple. Full range of motion. No adenopathy. Neck veins are flat. Cardiovascular examination reveals a regular rhythm rate. S1 and S2 normal. Soft systolic murmur. No S3-S4. Lungs reveal mostly clear breath sounds. A few scattered crackles. No wheezes or rhonchi. Breath sounds are equal bilaterally. Abdomen soft Extremities are intact. No cyanosis clubbing or edema. Results - Laboratory Findings CBC and BMP: 12/05/16 06:32 12/05/16 06:32 PT/INR, D-dimer PT 11.6 sec (9.0-12.0) 12/02/16 05:25 INR 1.2 (<1.1) 12/02/16 05:25 D-Dimer 1.21 mg/L FEU (<0.60) H 12/01/16 16:40 Abnormal lab findings: Abnormal Labs 12/01/16 12/01/16 12/02/16 23:45 23:45 05:25 RBC 2.27 L Hgb 7.5 L Hct 23.9 L MCV 105.2 H APTT 31.5 H Chloride Carbon Dioxide BUN Creatinine Glucose Magnesium Iron TIBC % Saturation Troponin I 0.221 H* Albumin 12/02/16 12/02/16 12/02/16 05:25 05:25 05:25 RBC Hgb Hct MCV APTT 53.0 H Chloride 91 L Carbon Dioxide 39 H BUN 26 H Creatinine Glucose 111 H Magnesium Iron 22 L TIBC 201 L % Saturation 10.9 L Troponin I 0.244 H* Albumin 3.2 L 12/02/16 12/04/16 12/04/16 09:32 06:15 06:15 RBC 2.39 L Hgb 7.8 L Hct 24.8 L MCV 103.7 H APTT Chloride 87 L Carbon Dioxide 43 H* BUN 28 H Creatinine 1.26 H Glucose Magnesium 2.4 H Iron TIBC % Saturation Troponin I 0.258 H* Albumin 12/05/16 12/05/16 06:32 06:32 RBC 2.50 L Hgb 8.5 L Hct 25.9 L MCV 103.6 H APTT Chloride 83 L Carbon Dioxide 47 H* BUN 26 H Creatinine 1.36 H Glucose Magnesium 2.4 H Iron TIBC % Saturation Troponin I Albumin - Diagnostic Findings Chest x-ray: image reviewed CT scan - chest: image reviewed (Labs x-rays medications are all reviewed. Chest x-ray and CAT scan is reviewed.) Assessment and Plan (1) COPD (chronic obstructive pulmonary disease) Status: Acute (2) CHF (congestive heart failure) Status: Acute (3) Dyspnea Status: Acute (4) Elevated troponin Status: Acute (5) Congestive heart failure Status: Acute (6) Hyperlipemia Status: Acute Plan: Plan The patient's x-rays labs and medications are reviewed. Additional recommendations suggestions are forthcoming. The patient is clinically much improved. Chest x-ray shows pretty much resolving fluid overload on chest x- ray. I believe the residual infiltrate in the right lung likely represents slowly resolving an asymmetric pulmonary edema. We'll continue to follow. Medications are reviewed. Labs are reviewed. X-rays are reviewed. Additional recommendations and suggestions are forthcoming. Time with Patient: Greater than 30
[2016-12-05] MEDS: SODIUM FERRIC GLUCONAT-SUCROSE 125 MG in SODIUM CHLORIDE 0.9% 100 ML IVPB SCH (17:36)
[2016-12-05] MEDS: ATORVASTATIN 40 MG TAB PO SCH (19:57)
--- NOTE | 2016-12-05 21:00 | PN ---
DATE OF SERVICE: 12/05/2016 DATA: FULL CODE. His height is 5 feet 7 inches. Weight 57.1 kg. Body surface area 1.66 sq meter. BMI 19.7 kg/sq meter. ALLERGIES: HALDOL. Patient was seen today, evaluated [id number]. Discussed with him the current problem. Patient is feeling better, improving gradually. With improvement with IV Lasix. His creatinine started to pear picker and at that time last night I did change his Lasix to IV 40 mg twice a day instead of 80 mg twice a day. Subsequently Cardiology decided to change it to p.o. today and he is on oral 40 mg twice a day at this time. Patient had a chest x-ray this morning that was indicating that he had underlying infiltrate. Report stated that he had a right middle lobe infiltrate, persistent, although much improved, and persistent small right-sided pleural effusion. With these findings, I consulted Dr. Hou, Pulmonary and Critical Care, and he saw the patient; it could be associated with the congestive heart failure and no clinical evidence of pneumonia. VITAL SIGNS: Temperature 97.1, pulse 72 to 67, regular. He is currently status post pacemaker and defibrillator AICD. Blood pressure 95/52 with a mean 66. His oxygen saturation is 99% with the 2 L nasal cannula. His last laboratories that were done today, 12/05/16: white count 8. His hemoglobin is improving to 8.5. He had infusion of iron plus he is on iron pills. His hematocrit is 25.9. Platelet count is 386 ( ). His chemistry profile: chronic carbon dioxide retention with the CO2 of 47. He has been followed by Dr. Hou as outpatient. He had sodium 140, potassium 4.2, chloride 83. BUN 10, creatinine 26. That is improved from yesterday, but the ( ) today is 1.36 and the IV Lasix has been changed to oral. His glomerular filtration rate for non- is 53 and his blood sugar was 90. His calcium is 9.5 with magnesium of 2.4; has been stable but a little bit higher than normal. On 12/02 and 12/01 patient had elevated troponin indicating non-Q SC and his BNP today was 7150. Before it was 18,000, so that is indicating also definite improvement. His TSH has been normal and he was covered with the thyroid. PHYSICAL EXAMINATION: Conscious, alert, oriented. He is sitting on the edge of the bed. He is using his inhalation therapy. HEENT: Normocephalic, atraumatic. Pupils equal and reactive. Oropharynx negative. No evidence of lateralization. NECK: Supple. No JVD. CHEST: Improved aeration on the lung bases and also reflected in the chest x-ray as well today. HEART: Cardiomegaly with the underlying ejection fraction 25% to 30% with the underlying ischemic cardiomyopathy. ABDOMEN: Soft. Positive bowel sounds. No tenderness on the liver and no evidence of organomegaly. EXTREMITIES: No edema. Positive pulses. Neurological examination was negative. ASSESSMENT: 1. Presentation with acute shortness of breath with generalized weakness, found that he had acute congestive heart failure, systolic on the top of chronic. 2. [id number] myocardial infarction with persistent evaluation of the troponin. 3. Underlying history of severe impairment of left systolic function with the ejection fraction 25%. No evidence of diastolic. 4. Pulmonary hypertension. 5. Hypothyroidism. 6. Hyperlipidemia. 7. Mild elevation of the creatinine with the diuresis with the underlying probability of chronic kidney disease, stage III; however, that is prerenal due to effect of decreased systolic function. Consultation with Pulmonary and Critical, Dr. Hou, indicating no clinical evidence of pneumonia, and the chest x-ray is probably due to the congestive heart failure. It is progressively improving. PLAN: At this time we will plan to continue the medication and obtain labs in the morning as well as plan for discharge home, as per the family's and patient's request. Hopefully no other problems during the night. His overall condition is guarded.
[2016-12-06 03:39] VITALS: RESP 16
[2016-12-06] MEDS: PANTOPRAZOLE 40 MG TABLET PO SCH (06:17)
[2016-12-06] MEDS: LEVOTHYROXINE 100 MCG TAB PO SCH (06:17)
[2016-12-06] MEDS: LEVOTHYROXINE 75 MCG TAB PO SCH (06:17)
[2016-12-06 06:33] LABS: Basophils % (A) 1 %; CH 32.8; CHCM 31.8; Eosinophils # (A) 0.3 k/uL (0-0.7); Eosinophils % (A) 5 %; HCT 23.4 % (39.0-53.0); HDW 2.52; HGB 7.7 gm/dL (13.0-17.5); Hypochromasia Slight; Luc # (Auto) 0.28; Luc % (Auto) 4; Lymphocytes # (A) 1.7 k/uL (1.0-4.8); Lymphocytes % (A) 23 %; MCH 34.1 pg (25.0-35.0); MCHC 32.9 g/dL (31.0-37.0); MCV 103.6 fL (80.0-100.0); Macrocytosis Slight; Mean Platelet Volume 7.3; Monocytes # (A) 0.4 k/uL (0-1.0); Monocytes % (A) 6 %; Neutrophils # (A) 4.6 k/uL (1.3-7.7); Neutrophils % (A) 63 %; RBC 2.25 m/uL (4.30-5.90); RDW 13.5 % (11.5-15.5); WBC 7.3 k/uL (3.8-10.6); WBC (Perox) 7.91
[2016-12-06 06:49] LABS: Blood Urea Nitrogen 25 mg/dL (9-20); Calcium 9.1 mg/dL (8.4-10.2); Chloride 82 mmol/L (98-107); Glucose 90 mg/dL (74-99); Magnesium 2.4 mg/dL (1.6-2.3); Non-African American GFR(MDRD) 51 (>60 ml/min/1.73 sqM); Potassium 4.4 mmol/L (3.5-5.1); Sodium 135 mmol/L (137-145)
[2016-12-06 06:56] LABS: Anion Gap 9 mmol/L
[2016-12-06 07:26] LABS: Carbon Dioxide 44 mmol/L (22-30)
[2016-12-06] MEDS: IPRATROPIUM-ALBUTEROL 3 ML NEB INHALATION PRN ×2 (07:29→14:03)
[2016-12-06] MEDS: SYMBICORT 160-4.5 MCG INHALER INHALATION SCH (07:29)
[2016-12-06] MEDS: ASPIRIN 81 MG CHEW PO SCH (08:37)
[2016-12-06] MEDS: FERROUS SULFATE 325 MG TAB PO SCH (08:37)
[2016-12-06] MEDS: CLOPIDOGREL 75 MG TAB PO SCH (08:37)
[2016-12-06] MEDS: FUROSEMIDE 40 MG TAB PO SCH (08:38)
[2016-12-06] MEDS: POLYETHYLENE GLYCOL 3350 17 GM POWD.PACK PO SCH (08:38)
[2016-12-06] MEDS: METOPROLOL TARTRATE 25 MG TAB PO SCH (08:38)
[2016-12-06] MEDS: SENNOSIDES 8.6 MG TAB PO SCH (08:38)
[2016-12-06] MEDS: AMIODARONE 100 MG TAB PO SCH (08:39)
[2016-12-06 08:46] VITALS: TEMP 96.4
--- NOTE | 2016-12-06 08:57 | DS ---
DATE OF ADMISSION: 12/01/2016 DATE OF DISCHARGE: NEW DATA: FULL CODE. His height is 5 feet 7 inches, his weight 57.9 kg, his BSA 1.67 sq m; BMI is 20 kg/sq m. ALLERGY: HALOPERIDOL equal to HALDOL. FINAL DIAGNOSES: 1. Acute non-ST segment elevation myocardial infarction with elevated troponin. 2. Acute congestive heart failure, systolic on top of chronic. 3. Ischemic cardiomyopathy with ejection fraction is 25%. 4. Underlying chronic kidney disease, stage III, prerenal secondary to systolic ( ) failure. 5. Hypothyroidism. 6. Coronary artery disease, atherosclerotic heart disease with one stent done in [facility]. 7. He had underlying history of chronic obstructive pulmonary disease and no acute exacerbation and no evidence of pneumonia. 8. Status post automatic implantable cardioverter-defibrillator implantation 2 weeks ago. 9. Dyspnea secondary to congestive heart failure and chronic obstructive pulmonary disease. 10. Patient with history of smoking, stopped smoking 1 year ago and he was 2 pack for more than 30 years. 11. Anemia. 12. He is oxygen dependent. CONSULTING PHYSICIAN: Cardiology, Dr. Hollis as well as Dr. Seth Florian; Pulmonary, Dr. Hou. HOSPITAL COURSE: The patient has progressive after he had his pacemaker defibrillator. He was feeling fine. Subsequently 2 days later started to have progressive shortness of breath and he denied any chest pain; however, with the inability to breathe came to the ER, found that he had elevated troponin for which was checked serially 4 to 5 times and found to be elevated. He was admitted to cardiology consultation and started on heparin and initially and subsequently changed it to subcu heparin. Discussion between Dr. Seth Florian and Dr. Hollis both cardiologists and was planning to do cardiac cath; however, that was discontinued and Dr. Hollis decided to see him in the office first and then subsequently decide if we will do a cardiac cath at this time for stability. The patient's blood pressure is on the low side. He also had underlying anemia and he has iron infusion ordered by Dr. Gomes the [place] cardiology. The patient currently is ambulatory. He had no chest pain. He had no clinical dizziness or blurred vision or falling attacks. He has ( ) his low blood pressure because of the severe cardiomyopathy and he is able to urinate; however, with the diuresis his creatinine has been increasing gradually and as he was on IV Lasix gradually changed to p.o. Currently he is on 40 mg p.o. twice a day. Prior to admission, he was on Lasix 20 mg twice a day and did not help. As patient is clinically stable and he will be discharged today to be followed next week in my office as well as he will be followed by Dr. Hollis for final decision of further investigation. Today, [id number] examination, patient is conscious, alert, oriented x3, able to ambulate. He had no shortness of breath or dyspnea. His temperature 97.5, pulse 72 and regular. He has history of paroxysmal atrial fibrillation. Currently is normal rhythm. His heart rate is ranging between 72 to 68, respiratory rate 18 to 16. His blood pressure ranging between 91/57 to 87/52. On 2 L he has oxygen permanently and he is on 2 L nasal cannula and he will be continuing on oxygen. He is currently 95% on 2 L nasal cannula. On examination, HEENT is negative. Neck was supple. He is able to eat and swallow and no facial lateralization. The chest was clear on the upper lung field he still has some residual effect from the congestive heart failure. The last chest x-ray was suspicious of infiltrate and we consulted Dr. Hou who said that the residual of the pulmonary edema that he has. The heart was currently regular sinus and appeared to be compensated and the lower extremities he had no edema and he had no JVD. The abdomen is soft, positive bowel sounds. No hepatojugular reflux was absent as well and positive bowel sounds. Extremities, no edema as mentioned and ambulatory and positive pulses with good perfusion of the lower extremities. ASSESSMENT: The patient is stable in general condition to be discharged home and follow as outpatient. I discussed with the patient and his nurse and also the medication was reviewed. Today, 06 of December.
--- NOTE | 2016-12-06 09:45 | P.PN ---
Subjective Principal diagnosis: Congestive heart failure This is a 66-year-old gentleman with known history of severe ischemic cardiomyopathy, paroxysmal atrial fibrillation, recent AICD implantation, dual- chamber, by Dr. Bowden on November 25 of this year. Patient also has history of hyperlipidemia, coronary artery disease, patient had a heart catheterization in 2014 which revealed a 60% distal left main, 100% ostial LAD, 70% circumflex, and 90% mid RCA, patient had a balloon pump placed at that time, was transferred out and underwent left main stenting. He presented to the hospital on this occasion with symptoms of progressively worsening shortness of breath. His initial BNP on presentation here was 13,900, went up to 18,000 down to 7100 yesterday. Stool for occult blood negative. Creatinine today 1.4. Blood pressure this morning 90/60 with a heart rate in the 70s. Hemoglobin 7.7. Last night, feeling well this morning, no complaints. Eager to be discharged home today. Objective - Vital Signs Vital signs: Vital Signs Temp 96.4 F L 12/06/16 08:00 Pulse 71 12/06/16 08:00 Resp 16 12/06/16 03:30 BP 88/44 12/06/16 08:00 Pulse Ox 92 L 12/06/16 08:00 Intake & Output 12/05/16 12/06/16 12/06/16 18:59 06:59 18:59 Intake Total 1071 100 Output Total 325 310 Balance 746 -210 Weight 57.9 kg Intake: Intake, IV Titration 100 Amount Sodium Ferric Gluconat- 100 Sucrose 125 mg In Sodium Chloride 0.9% 100 ml @ 100 mls/hr IVPB Q24H [facility] Rx#:[id number] Oral 1071 Output: Urine 325 310 Other: # Voids 1 - Exam PHYSICAL EXAMINATION: HEENT: Head is atraumatic, normocephalic. Pupils equal, round. Neck is supple. There is elevated jugular venous pressure. HEART EXAMINATION: Heart S1, S2 systolic murmur . No murmur or gallop heard. CHEST EXAMINATION: Lungs are clear to auscultation and percussion. ABDOMEN: Soft, nontender. Bowel sounds are heard. No organomegaly noted. EXTREMITIES: 2+ peripheral pulses with trace evidence of peripheral edema and no calf tenderness noted. NEUROLOGIC patient is awake, alert and oriented -3. . - Labs CBC & Chem 7: 12/06/16 05:45 12/06/16 05:45 Labs: Abnormal Lab Results - Last 24 Hours (Table) 12/06/16 12/06/16 Range/Units 05:45 05:45 RBC 2.25 L (4.30-5.90) m/uL Hgb 7.7 L (13.0-17.5) gm/dL Hct 23.4 L (39.0-53.0) % MCV 103.6 H (80.0-100.0) fL Sodium 135 L (137-145) mmol/L Chloride 82 L (98-107) mmol/L Carbon Dioxide 44 H* (22-30) mmol/L BUN 25 H (9-20) mg/dL Creatinine 1.40 H (0.66-1.25) mg/dL Magnesium 2.4 H (1.6-2.3) mg/dL Assessment and Plan (1) Systolic CHF, acute on chronic Status: Acute (2) Hyperlipemia Status: Acute (3) Ischemic cardiomyopathy Status: Acute (4) Paroxysmal a-fib Status: Acute (5) Presence of stent in LAD coronary artery Status: Acute (6) Tachycardia Status: Acute (7) AICD (automatic cardioverter/defibrillator) present Status: Acute Plan: From cardiology's perspective, we will decrease dose of Lopressor to 12-1/2 mg one tablet by mouth twice a day. Continue other medications. Make a follow-up appointment with Dr. Lindo next week. Obtain lytes BUN and creatinine in one week. DNP note has been reviewed, I agree with a documented findings and plan of care. Patient was seen and examined.
[2016-12-06] MEDS: HEPARIN SODIUM,PORCINE 5,000 UNIT/ML 1 ML VIAL SQ SCH (11:53)
[2016-12-06] MEDS: LACTOBACILLUS ACIDOPH & BULGAR 1 EACH PACKET PO SCH (11:53)
[2016-12-06] MEDS: LISINOPRIL 2.5 MG TAB PO SCH (11:54)
[2016-12-06] MEDS: MULTIVITAMINS, THERA 1 EACH TAB PO SCH (11:54)
[2016-12-06] MEDS: CHOLECALCIFEROL 1,000 UNIT TAB PO SCH (11:54)
[2016-12-06] MEDS: FOLIC ACID 1 MG TAB PO SCH (11:54)
--- NOTE | 2016-12-06 12:12 | P.PN ---
Subjective Progress Note Dated 12/06/2016 This Is a 66-year-old Male That We Saw Yesterday in Consultation. We Saw Him Because of a Infiltrate in the Right Lower Lobe. He Actually Came in with Heart Failure. I Believe That the Infiltrate Probably Were Related to Asymmetric Clearing of His Pulmonary Edema. Really Was Not Having Much in the Way of Symptoms of Pneumonia. He Does Have a History of Underlying COPD. Feeling Much Better. Maybe Discharged Home Today. His Primary Doctor's Dr. Finney. Objective - Vital Signs Vital signs: Vital Signs Temp 96.4 F L 12/06/16 08:00 Pulse 71 12/06/16 08:00 Resp 16 12/06/16 08:00 BP 88/44 12/06/16 08:00 Pulse Ox 92 L 12/06/16 08:00 Intake & Output 12/05/16 12/06/16 12/06/16 18:59 06:59 18:59 Intake Total 1071 100 Output Total 325 310 Balance 746 -210 Weight 57.9 kg 57.9 kg Intake: Intake, IV Titration 100 Amount Sodium Ferric Gluconat- 100 Sucrose 125 mg In Sodium Chloride 0.9% 100 ml @ 100 mls/hr IVPB Q24H [facility] Rx#:[id number] Oral 1071 Output: Urine 325 310 Other: # Voids 1 - Exam No acute distress, oriented 3. HEENT examination is grossly unremarkable. Mucous membranes are moist. No oral lesions. Neck supple. Full range of motion. No adenopathy. No thyromegaly. Neck veins are flat. Cardiovascular examination reveals regular rhythm rate. On S2 normal. No S3- S4 or murmur. Lungs reveal relatively clear but somewhat diminished breath sounds. No wheezes or rhonchi. A few scattered minimal crackles. Abdomen soft bowel sounds are heard Extremities are intact. There is no cyanosis clubbing or edema. - Labs CBC & Chem 7: 12/06/16 05:45 12/06/16 05:45 Labs: Abnormal Lab Results - Last 24 Hours (Table) 12/06/16 12/06/16 Range/Units 05:45 05:45 RBC 2.25 L (4.30-5.90) m/uL Hgb 7.7 L (13.0-17.5) gm/dL Hct 23.4 L (39.0-53.0) % MCV 103.6 H (80.0-100.0) fL Sodium 135 L (137-145) mmol/L Chloride 82 L (98-107) mmol/L Carbon Dioxide 44 H* (22-30) mmol/L BUN 25 H (9-20) mg/dL Creatinine 1.40 H (0.66-1.25) mg/dL Magnesium 2.4 H (1.6-2.3) mg/dL Assessment and Plan (1) COPD (chronic obstructive pulmonary disease) Status: Acute (2) CHF (congestive heart failure) Status: Acute (3) Dyspnea Status: Acute (4) Elevated troponin Status: Acute (5) Congestive heart failure Status: Acute (6) Hyperlipemia Status: Acute Plan: Plan The patient's x-rays labs and medications are reviewed. Additional recommendations suggestions are forthcoming. The patient is clinically much improved. Chest x-ray shows pretty much resolving fluid overload on chest x- ray. I believe the residual infiltrate in the right lung likely represents slowly resolving an asymmetric pulmonary edema. We'll continue to follow. Medications are reviewed. Labs are reviewed. X-rays are reviewed. Additional recommendations and suggestions are forthcoming. Plan dated 12/06/2016 The patient is doing well. He may be discharged home today. The patient will follow with me in the office in the next 10-14 days. The infiltrate appears to be slowly resolving and somewhat asymmetric pulmonary edema. No pneumonic symptoms. His COPD is relatively stable. We will continue to follow. Prognosis is guarded. Time with Patient: Less than 30
--- NOTE | 2016-12-06 12:31 | CDI ---
In responding to this query, please exercise your independent professional judgment. The [facility] Coding Staff and Clinical Documentation Specialists appreciate your assistance in clarifying documentation, maintaining compliance with coding guidelines, accurately documenting patients condition and capturing severity of illness. The fact that a question is asked does not imply that any particular answer is desired or expected. Communication forms are a method of clarifying documentation and are not made part of the Legal Health Record. Thank you in advance for your clarification. Last Revision, November 2015 Keynaa Dai [address] [place] [address] Documentation Clarification Form Date: 12/06/2016 12:18:00 PM From: Mily Peralta CCS, CCDS Admit Date: 12/01/2016 6:11:00 PM Patient Name: Rogers Mota Visit Number: [id number] Discharge Date: Dr. Hari Hou: The patient presented with the following respiratory symptoms: SOB, diagnosed with NSTEMI, had pacemaker implanted two weeks prior. Per attending: Underlying COPD w/exacerbation & hypoxemia chronic w/chronic oxygen supplementation. History/Risk Factors: COPD, Home O2 dependent 2Lnc, CAD with previous coronary stent placement. Former smoker, quit 06/22 after previous OR. Clinical Indicators: Vital signs: R 20, PO 96 3Lnc Lung/Breathing assessment: Mild respiratory distress, bilateral rales in basess , rhonchi. Treatment: IV Lasix, Albuterol INH, Budesonide puffs, IV Narcan, Heparin drip, O2 2-3Lnc Consults: Cardiology & Pulmonary In your professional opinion, can you please clarify if these findings signify one of the following conditions? Acuity: o Acute o Chronic o Acute on Chronic Respiratory Status: o Respiratory failure o Respiratory failure with hypercapnia o Respiratory failure with hypoxia o Acute Respiratory Distress o Other Diagnosis, please specify o Unable to determine Please document in your progress notes and discharge summary in order to capture severity of illness and risk of mortality. Include clinical findings that support your diagnosis. FYI: Press F11 to launch patient chart. Place X here if this finding has no clinical significance, is not applicable or if you are not able to provide any additional documentation. Thank You. COLLEEN
[2016-12-06 14:26] VITALS: BP 91/48; PULSE 63
[2016-12-06] MEDS ORDERED: METOPROLOL TARTRATE 12.5 MG TAB PO SCH (21:00)
--- NOTE | 2016-12-10 11:18 | CDI ---
In responding to this query, please exercise your independent professional judgment. The [facility] Coding Staff and Clinical Documentation Specialists appreciate your assistance in clarifying documentation, maintaining compliance with coding guidelines, accurately documenting patients condition and capturing severity of illness. The fact that a question is asked does not imply that any particular answer is desired or expected. Communication forms are a method of clarifying documentation and are not made part of the Legal Health Record. Thank you in advance for your clarification. Last Revision, November 2015 Keyana Dai [address] [place] [address] Documentation Clarification Form Date: 12/06/2016 12:18:00 PM Resubmitted 12/09/2016 From: Mily Peralta CCS, CCDS Resubmitted 12/10/2016 Admit Date: 12/01/2016 6:11:00 PM Patient Name: Rogers Mota Visit Number: [id number] Discharge Date: 12/06/2016 Please review and respond to this query in documentation prior to signing. Dr. Hari Hou: The patient presented with the following respiratory symptoms: SOB, diagnosed with NSTEMI, had pacemaker implanted two weeks prior. Per attending: Underlying COPD w/exacerbation & hypoxemia chronic w/chronic oxygen supplementation. History/Risk Factors: COPD, Home O2 dependent 2Lnc, CAD with previous coronary stent placement. Former smoker, quit 06/22 after previous MD. Clinical Indicators: Vital signs: R 20, PO 96 3Lnc Lung/Breathing assessment: Mild respiratory distress, bilateral rales in basess , rhonchi. Treatment: IV Lasix, Albuterol INH, Budesonide puffs, IV Narcan, Heparin drip, O2 2-3Lnc Consults: Cardiology & Pulmonary In your professional opinion, can you please clarify if these findings signify one of the following conditions? Acuity: o Acute o Chronic o Acute on Chronic Respiratory Status: o Respiratory failure o Respiratory failure with hypercapnia o Respiratory failure with hypoxia o Acute Respiratory Distress o Other Diagnosis, please specify o Unable to determine Please document in your progress notes and discharge summary in order to capture severity of illness and risk of mortality. Include clinical findings that support your diagnosis. FYI: Press F11 to launch patient chart. Place X here if this finding has no clinical significance, is not applicable or if you are not able to provide any additional documentation. Thank You. COLLEEN
== END 2016-12-06 15:27 | disposition home or self-care (01) | DRG 280 ==
LOC: EC 15:58 → 6SEL 18:11
PROVIDERS: ADMIT Internal Medicine; ATTEND Internal Medicine
DX: I21.4 Non-ST elevation (NSTEMI) myocardial infarction (principal); I50.23 Acute on chronic systolic (congestive) heart failure; I27.2 Other secondary pulmonary hypertension; Z99.81 Dependence on supplemental oxygen; J44.1 Chronic obstructive pulmonary disease with (acute) exacerbation; I25.5 Ischemic cardiomyopathy; I13.0 Hypertensive heart and chronic kidney disease with heart failure and stage 1 through stage 4 chronic kidney disease, or unspecified chronic kidney disease; I45.10 Unspecified right bundle-branch block; N18.3 Chronic kidney disease, stage 3 (moderate); I25.10 Atherosclerotic heart disease of native coronary artery without angina pectoris; I48.0 Paroxysmal atrial fibrillation; E78.5 Hyperlipidemia, unspecified; I25.2 Old myocardial infarction; R09.02 Hypoxemia; D63.8 Anemia in other chronic diseases classified elsewhere; E03.9 Hypothyroidism, unspecified; H26.9 Unspecified cataract; Z95.5 Presence of coronary angioplasty implant and graft; Z95.810 Presence of automatic (implantable) cardiac defibrillator; Z86.19 Personal history of other infectious and parasitic diseases; Z87.891 Personal history of nicotine dependence; Z16.24 Resistance to multiple antibiotics; Z79.02 Long term (current) use of antithrombotics/antiplatelets; Z79.82 Long term (current) use of aspirin; Z79.899 Other long term (current) drug therapy; Z82.49 Family history of ischemic heart disease and other diseases of the circulatory system
CPT/HCPCS: 36415; 71020; 71275; 80048; 80053; 82272; 82550; 82553; 82728; 83540; 83550; 83735; 83880; 84443; 84484; 85025; 85045; 85379; 85610; 85730; 86850; 86900; 86901; 87502; 93005; 93306; 94640; 94760; 96365; 96375; 96376; 99285

== ENCOUNTER → 2017-02-07 | Outpatient (CLI) | payer MEDICAID ==
[2017-02-07 16:28] LABS: Blood Urea Nitrogen 37 mg/dL (9-20); Non-African American GFR(MDRD) 56 (>60 ml/min/1.73 sqM)
--- NOTE | 2017-02-08 08:15 | CT ---
EXAMINATION TYPE: CT angio neck DATE OF EXAM: 02/07/2017 COMPARISON: NONE HISTORY: Patient homero cat. Patinet had abnormal Carotid US. CT DLP: 195 mGycm CONTRAST: CTA cervical carotids is performed with with IV Contrast, patient injected with 65 mL of Visipaque 32 0. Contrast CTA of the cervical carotids was performed 3-D reconstruction imaging obtained at a separate workstation. Right carotid system: Mild plaque is seen of the right common carotid artery. There is severe plaque also noted at the carotid bulb and proximal ICA with complete occlusion noted.. Right vertebral art uriah appears unremarkable. Left carotid system: Mild plaque is seen of the left common carotid artery. There is mild to moderat e plaque also noted at the carotid bulb. Estimated diameter reduction is 50%. ECA is patent. Left vertebral artery appears unremarkable. IMPRESSION: 1. Complete occlusion right proximal ICA. 2. Estimated diameter reduction Left ICA 50%
== END | disposition home or self-care (01) ==
LOC: RADCTMAIN 15:48
PROVIDERS: ATTEND Internal Medicine Interventional Cardiology
DX: I65.23 Occlusion and stenosis of bilateral carotid arteries (principal); I10 Essential (primary) hypertension
CPT/HCPCS: 82565; 84520; 70498; 36415; Q9967

== ENCOUNTER 2017-02-14 11:31 | Day surgery (SDC) | payer MEDICAID ==
[2017-02-13 10:20] VITALS: BMI 20.2
[~2017-02-14 11:31] MED LIST changes: +LACTATED RINGERS 1,000 ML IV SCH; +LIDOCAINE 1% 20 ML VIAL (10MG/ML) FOR IV START INTRADERMA PRN; -ceFAZolin 1,000 MG in SODIUM CHLORIDE 0.9% IRRIGATIO 250 ML IRRIGATION ONE; -ceFAZolin 2 GM in SODIUM CHLORIDE 0.9% 100 ML IVPB ONE
[2017-02-14 12:16] VITALS: TEMP 97.4
[2017-02-14] MEDS ORDERED: PROPOFOL 10 MG/ML 20 ML VIAL IV ONE (12:47)
[2017-02-14 13:42] VITALS: BP 105/61; PULSE 82
[2017-02-14 13:56] LABS: Basophils % (A) 1 %; CH 32.6; CHCM 31.8; Eosinophils # (A) 0.2 k/uL (0-0.7); Eosinophils % (A) 2 %; HCT 25.4 % (39.0-53.0); HDW 2.62; HGB 8.1 gm/dL (13.0-17.5); Luc # (Auto) 0.24; Luc % (Auto) 3; Lymphocytes # (A) 0.9 k/uL (1.0-4.8); Lymphocytes % (A) 11 %; MCH 32.8 pg (25.0-35.0); Macrocytosis Slight; Mean Platelet Volume 7.5; Monocytes # (A) 0.6 k/uL (0-1.0); Monocytes % (A) 7 %; Neutrophils % (A) 76 %; RBC 2.47 m/uL (4.30-5.90); RDW 13.3 % (11.5-15.5); WBC 7.8 k/uL (3.8-10.6)
[2017-02-14 13:59] LABS: MCV 102.7 fL (80.0-100.0)
[2017-02-14 14:34] VITALS: RESP 18
--- NOTE | 2017-02-14 23:01 | PCN ---
DATE OF PROCEDURE: 02/14/2017 PROCEDURE: Bone marrow aspiration biopsy. INDICATIONS FOR PROCEDURE: Progressive macrocytic anemia. Type of anesthesia: Local with IV sedation. PROCEDURE NOTE: The procedure was explained in detail to the patient in the office. He presented to the outpatient endoscopy suite where IV access and informed consent were obtained. He was then placed in the left lateral decubitus position. The area over both posterior iliac crests was cleaned and prepped with chlorhexidine and sterile draping. IV sedation was then initiated. Local anesthesia was administered with lidocaine two the area of the right posterior iliac crest. A Jamshidi needle was then inserted. Bone marrow aspirate and biopsy was obtained. On withdrawal of the needle, hemostasis was achieved. Blood loss was minimal and recovery some sedation was satisfactory. He appeared to have tolerated the procedure well without any obvious complications.
== END 2017-02-14 14:32 | disposition home or self-care (01) ==
LOC: OR 11:31
PROVIDERS: ATTEND Internal Medicine Hematology & Oncology
DX: D53.9 Nutritional anemia, unspecified (principal); D47.2 Monoclonal gammopathy; D75.89 Other specified diseases of blood and blood-forming organs; J44.9 Chronic obstructive pulmonary disease, unspecified; I13.0 Hypertensive heart and chronic kidney disease with heart failure and stage 1 through stage 4 chronic kidney disease, or unspecified chronic kidney disease; N18.9 Chronic kidney disease, unspecified; I50.9 Heart failure, unspecified; E07.9 Disorder of thyroid, unspecified; Z95.0 Presence of cardiac pacemaker; Z95.5 Presence of coronary angioplasty implant and graft; I25.2 Old myocardial infarction; Z79.02 Long term (current) use of antithrombotics/antiplatelets; Z79.82 Long term (current) use of aspirin; Z79.51 Long term (current) use of inhaled steroids; Z79.899 Other long term (current) drug therapy; Z88.8 Allergy status to other drugs, medicaments and biological substances; Z87.891 Personal history of nicotine dependence
CPT/HCPCS: 85025; 38221; J2704; G0364; 86335

== ENCOUNTER → 2017-11-18 | Outpatient (CLI) | payer MEDICARE ==
[2017-11-18 11:02] LABS: ABG Base Excess 7.4 mmol/L; ABG HCO3 33 mmol/L (21-25); ABG PCO2 60 mmHg (35-45); ABG PH 7.35 (7.35-7.45); ABG PO2 77 mmHg (83-108); ABG TCO2 35 mmol/L (19-24)
== END | disposition home or self-care (01) ==
LOC: LABWHC1 10:31
PROVIDERS: ATTEND Internal Medicine Critical Care Medicine
DX: J44.9 Chronic obstructive pulmonary disease, unspecified (principal)
CPT/HCPCS: 36600; 82805

== ENCOUNTER 2017-12-13 14:02 | Inpatient (IN) | payer MEDICARE, OTHER ==
[2017-12-13] MEDS ORDERED: ACETAMINOPHEN TAB 500 MG TAB PO STA (14:20)
[2017-12-13 14:38] LABS: Basophils % (A) 0 %; Eosinophils # (A) 0.1 k/uL (0-0.7); Eosinophils % (A) 1 %; HCT 32.5 % (39.0-53.0); HGB 10.9 gm/dL (13.0-17.5); Lymphocytes # (A) 0.3 k/uL (1.0-4.8); Lymphocytes % (A) 2 %; MCH 34.5 pg (25.0-35.0); MCHC 33.6 g/dL (31.0-37.0); MCV 102.6 fL (80.0-100.0); Macrocytosis Slight; Mean Platelet Volume 6.9; Monocytes # (A) 0.6 k/uL (0-1.0); Monocytes % (A) 4 %; Neutrophils # (A) 15.1 k/uL (1.3-7.7); Neutrophils % (A) 92 %; Platelet Count 299 k/uL (150-450); RBC 3.17 m/uL (4.30-5.90); RDW 14.3 % (11.5-15.5); WBC 16.4 k/uL (3.8-10.6)
[2017-12-13 14:47] LABS: Appearance,Urine Clear (Clear); Bilirubin,Urine Negative (Negative); Blood,Urine Negative (Negative); Color,Urine Light Yellow; Glucose,Urine (UA) Negative (Negative); Ketones,Urine Negative (Negative); Leukocyte Esterase,Urine Negative (Negative); Nitrite,Urine Negative (Negative); Protein,Urine Negative (Negative); Specific Gravity,Urine 1.007 (1.001-1.035); Urobilinogen,Urine <2.0 mg/dL (<2.0)
[2017-12-13 14:50] LABS: Albumin 3.2 g/dL (3.5-5.0); Calcium 8.9 mg/dL (8.4-10.2); Magnesium 1.7 mg/dL (1.6-2.3); Total Bilirubin 0.4 mg/dL (0.2-1.3); Total Protein 5.9 g/dL (6.3-8.2)
--- NOTE | 2017-12-13 16:15 | XR ---
EXAMINATION TYPE: XR chest 2V DATE OF EXAM: 12/13/2017 COMPARISON: CTA chest December 01, 2016. 2 view chest x-ray December 05, 2016. HISTORY: Fever. TECHNIQUE: Frontal and lateral views of the chest are obtained. FINDINGS: There is persistent cardiomegaly with dual lead pacemaker. There is background chronic em physematous change with new left perihilar opacity. There are suspected persistent tiny bilateral ple ural effusions with blunting of posterior costophrenic angles. The osseous structures are intact. IMPRESSION: Cardiomegaly and chronic emphysematous change with tiny bilateral pleural effusions and new left basilar infiltrate.
[2017-12-13] MEDS ORDERED: DEXAMETHASONE SOD PHOSPHATE 10 MG/ML 1 ML VIAL IV STA (16:19)
[2017-12-13] MEDS ORDERED: ALBUTEROL NEBULIZED 2.5 MG/3 ML INHALATION STA (16:19)
[2017-12-13] MEDS ORDERED: CEFEPIME 2 GM in SODIUM CHLORIDE 0.9% 50 ML IVPB STA (16:19)
[2017-12-13] MEDS ORDERED: VANCOMYCIN IV PER PHARMACY 1 EACH MISC MISCELLANE PRN (16:20)
[2017-12-13] MEDS ORDERED: VANCOMYCIN 1,250 MG in SODIUM CHLORIDE 0.9% 250 ML IVPB STA (16:26)
--- NOTE | 2017-12-13 16:31 | ED ---
General Adult HPI - General Chief complaint: Weakness Stated complaint: Chest Pain Time Seen by Provider: 12/13/17 14:07 Source: patient, EMS, RN notes reviewed Mode of arrival: EMS Limitations: no limitations - History of Present Illness Initial comments: 67-year-old male with history of COPD on home oxygen presents for evaluation of generalized weakness, cough and fever. Patient is currently using 2 L of home O2. He states that today he developed fever and worsening cough. Patient also reports generalized weakness and difficulty with ambulation. Patient is not currently on steroids.Denies any nausea vomiting or diarrhea. Denies chest pain. Patient was transported by EMS. - Related Data Home Medications Medication Instructions Recorded Confirmed Levothyroxine Sodium [Synthroid] 175 mcg PO DAILY 06/23/15 12/13/17 Multivitamins, Thera [Multivitamin 1 tab PO DAILY 06/24/15 12/13/17 (formulary)] Amiodarone [Cordarone] 100 mg PO DAILY 09/04/15 12/13/17 Aspirin 81 mg PO DAILY 09/04/15 12/13/17 Budesonide/Formoterol Fumarate 2 puff INHALATION RT-BID 09/29/15 12/13/17 [Symbicort 160-4.5 Mcg Inhaler] Ferrous Sulfate [Iron (65 MG 325 mg PO BID 10/04/15 12/13/17 Elemental)] Ipratropium-Albuterol Nebulize 3 ml INHALATION RT-QID PRN 10/29/16 12/13/17 [Duoneb 0.5 mg-3 mg/3 ml Soln] Pantoprazole [Protonix] 40 mg PO DAILY 10/29/16 12/13/17 Lisinopril [Zestril] 2.5 mg PO DAILY 02/13/17 12/13/17 Spironolactone [Aldactone] 25 mg PO DAILY 02/13/17 12/13/17 Cholecalciferol (Vitamin D3) 2,000 unit PO DAILY 12/13/17 12/13/17 [Vitamin D3] Docusate [Colace] 100 mg PO HS 12/13/17 12/13/17 Folic Acid 0.8 mg PO DAILY 12/13/17 12/13/17 Metoprolol Tartrate [Lopressor] 25 mg PO BID 12/13/17 12/13/17 Procrit(Unknown Dose) 1 dose IJ Q21D 12/13/17 12/13/17 Previous Rx's Medication Instructions Recorded Atorvastatin [Lipitor] 40 mg PO HS tab 09/22/15 Clopidogrel [Plavix] 75 mg PO DAILY tab 09/22/15 Nitroglycerin Sl Tabs [Nitrostat] 0.4 mg SUBLINGUAL Q5M PRN #0 tab 09/22/15 Furosemide [Lasix] 40 mg PO BID@0900,1600 #60 tab 12/06/16 Allergies Allergy/AdvReac Type Severity Reaction Status Date / Time haloperidol [From Haldol] AdvReac Confusion Verified 12/13/17 14:30 Review of Systems ROS Statement: Those systems with pertinent positive or pertinent negative responses have been documented in the HPI. ROS Other: All systems not noted in ROS Statement are negative. Past Medical History Past Medical History: Heart Failure, COPD, Hypertension, Myocardial Infarction ( [place]), Renal Disease, Thyroid Disorder, Hypertension, Myocardial Infarction ([place]), Thyroid Disorder Additional Past Medical History / Comment(s): anemia, coumadin toxicity, hypoxia , ASHD, pulmonary, beginnings of cataracts bilaterally, home O2 (2LNC- PRN), Last Myocardial Infarction Date:: 06/24/15 History of Any Multi-Drug Resistant Organisms: C-DIFF, MRSA Date of last positivie culture/infection: 2015 MDRO Source:: sacral wound Past Surgical History: Heart Catheterization With Stent, Orthopedic Surgery, Pacemaker Additional Past Surgical History / Comment(s): 1996 L shoulder rotator cuff surgery, colonoscopy with benign polypectomy.heart stent x1, sacral wound debridement with wound vac Past Anesthesia/Blood Transfusion Reactions: No Reported Reaction Additional Past Anesthesia/Blood Transfusion Reaction / Comment(s): Pt has never received blood. Date of Last Stent Placement:: 06/2015 Type of Cardiac Device: Permanent Pacemaker Device Placement Date:: 11/25/2016 Past Psychological History: No Psychological Hx Reported Smoking Status: Former smoker Past Alcohol Use History: None Reported Past Drug Use History: None Reported - Past Family History Father Family Medical History: Coronary Artery Disease (CAD), Myocardial Infarction ([place] ) Additional Family Medical History / Comment(s): Father at age 86yrs. He had a CABG Mother Family Medical History: Cancer Additional Family Medical History / Comment(s): Mother in her 30's of breast cancer. General Exam Limitations: no limitations General appearance: alert, in no apparent distress Head exam: Present: atraumatic, normocephalic Eye exam: Present: normal appearance, PERRL ENT exam: Present: mucous membranes dry Neck exam: Present: normal inspection. Absent: tenderness, meningismus Respiratory exam: Present: respiratory distress, wheezes, rhonchi, prolonged expiratory Cardiovascular Exam: Present: normal rhythm, tachycardia GI/Abdominal exam: Present: soft. Absent: distended, tenderness, guarding Extremities exam: Present: normal inspection, normal capillary refill. Absent: pedal edema Neurological exam: Present: alert, oriented X3, CN II-XII intact. Absent: motor sensory deficit Psychiatric exam: Present: normal affect, normal mood Skin exam: Present: warm, dry, intact. Absent: cyanosis, diaphoretic Course Vital Signs 12/13/17 12/13/17 12/13/17 14:04 16:03 16:45 Temperature 101.9 F H Pulse Rate 118 H 102 H 97 Respiratory 20 16 Rate Blood Pressure 118/66 91/55 O2 Sat by Pulse 93 L 93 L Oximetry EKG Findings - EKG Comments: EKG Findings:: EKG, atrial sensed ventricular paced rhythm, rate of 114, MI interval 184, QRS duration 158, QTC 556, no significant change compared to EKG from December 01. Medical Decision Making - Medical Decision Making 67-year-old male presenting with cough, fever, and weakness. Laboratory studies reveal elevated white blood cell count 16.4, hemoglobin 10.9 which is stable. CO2 is 36 consistent with chronic CO2 retention. Chest x-ray shows new left basilar infiltrate. Patient has been hospitalized recently, he will be treated for healthcare associated pneumonia. Started on cefepime and vancomycin. Case discussed with Dr. Lorenzo he will accept admission. - Lab Data Result diagrams: 12/13/17 14:14 12/13/17 14:14 Lab Results 12/13/17 12/13/17 12/13/17 Range/Units 14:14 14:14 14:14 WBC 16.4 H (3.8-10.6) k/uL RBC 3.17 L (4.30-5.90) m/uL Hgb 10.9 L (13.0-17.5) gm/dL Hct 32.5 L (39.0-53.0) % MCV 102.6 H (80.0-100.0) fL MCH 34.5 (25.0-35.0) pg MCHC 33.6 (31.0-37.0) g/dL RDW 14.3 (11.5-15.5) % Plt Count 299 (150-450) k/uL Neutrophils % 92 % Lymphocytes % 2 % Monocytes % 4 % Eosinophils % 1 % Basophils % 0 % Neutrophils # 15.1 H (1.3-7.7) k/uL Lymphocytes # 0.3 L (1.0-4.8) k/uL Monocytes # 0.6 (0-1.0) k/uL Eosinophils # 0.1 (0-0.7) k/uL Basophils # 0.0 (0-0.2) k/uL Macrocytosis Slight Sodium 138 (137-145) mmol/L Potassium 5.0 (3.5-5.1) mmol/L Chloride 96 L (98-107) mmol/L Carbon Dioxide 36 H (22-30) mmol/L Anion Gap 6 mmol/L BUN 27 H (9-20) mg/dL Creatinine 1.20 (0.66-1.25) mg/dL Est GFR (CKD-EPI)AfAm 73 (>60 ml/min/1.73 sqM) Est GFR (CKD-EPI)NonAf 63 (>60 ml/min/1.73 sqM) Glucose 78 (74-99) mg/dL Plasma Lactic Acid David 0.9 (0.7-2.0) mmol/L Calcium 8.9 (8.4-10.2) mg/dL Magnesium 1.7 (1.6-2.3) mg/dL Total Bilirubin 0.4 (0.2-1.3) mg/dL AST 19 (17-59) U/L ALT 20 L (21-72) U/L Alkaline Phosphatase 58 (38-126) U/L Troponin I (0.000-0.034) ng/mL Total Protein 5.9 L (6.3-8.2) g/dL Albumin 3.2 L (3.5-5.0) g/dL Urine Color Urine Appearance (Clear) Urine pH (5.0-8.0) Ur Specific [place] (1.001-1.035) Urine Protein (Negative) Urine Glucose (UA) (Negative) Urine Ketones (Negative) Urine Blood (Negative) Urine Nitrite (Negative) Urine Bilirubin (Negative) Urine Urobilinogen (<2.0) mg/dL Ur Leukocyte Esterase (Negative) Influenza Type A RNA (Not Detectd) Influenza Type B (PCR) (Not Detectd) 12/13/17 12/13/17 12/13/17 Range/Units 14:14 14:14 14:30 WBC (3.8-10.6) k/uL RBC (4.30-5.90) m/uL Hgb (13.0-17.5) gm/dL Hct (39.0-53.0) % MCV (80.0-100.0) fL MCH (25.0-35.0) pg MCHC (31.0-37.0) g/dL RDW (11.5-15.5) % Plt Count (150-450) k/uL Neutrophils % % Lymphocytes % % Monocytes % % Eosinophils % % Basophils % % Neutrophils # (1.3-7.7) k/uL Lymphocytes # (1.0-4.8) k/uL Monocytes # (0-1.0) k/uL Eosinophils # (0-0.7) k/uL Basophils # (0-0.2) k/uL Macrocytosis Sodium (137-145) mmol/L Potassium (3.5-5.1) mmol/L Chloride (98-107) mmol/L Carbon Dioxide (22-30) mmol/L Anion Gap mmol/L BUN (9-20) mg/dL Creatinine (0.66-1.25) mg/dL Est GFR (CKD-EPI)AfAm (>60 ml/min/1.73 sqM) Est GFR (CKD-EPI)NonAf (>60 ml/min/1.73 sqM) Glucose (74-99) mg/dL Plasma Lactic Acid David (0.7-2.0) mmol/L Calcium (8.4-10.2) mg/dL Magnesium (1.6-2.3) mg/dL Total Bilirubin (0.2-1.3) mg/dL AST (17-59) U/L ALT (21-72) U/L Alkaline Phosphatase (38-126) U/L Troponin I 0.032 (0.000-0.034) ng/mL Total Protein (6.3-8.2) g/dL Albumin (3.5-5.0) g/dL Urine Color Light Yellow Urine Appearance Clear (Clear) Urine pH 7.0 (5.0-8.0) Ur Specific [place] 1.007 (1.001-1.035) Urine Protein Negative (Negative) Urine Glucose (UA) Negative (Negative) Urine Ketones Negative (Negative) Urine Blood Negative (Negative) Urine Nitrite Negative (Negative) Urine Bilirubin Negative (Negative) Urine Urobilinogen <2.0 (<2.0) mg/dL Ur Leukocyte Esterase Negative (Negative) Influenza Type A RNA Not Detected (Not Detectd) Influenza Type B (PCR) Not Detected (Not Detectd) Disposition Clinical Impression: Healthcare-associated pneumonia, Acute exacerbation of chronic obstructive airways disease Disposition: ADMITTED IP TO THIS [facility] Condition: Stable Referrals: Jovanni Finney MD [Primary Care Provider] - 1-2 days Decision to Admit Reason: Admit from EC Decision Date: 12/13/17 Decision Time: 16:37
[2017-12-13] MEDS ORDERED: IPRATROPIUM-ALBUTEROL 3 ML NEB INHALATION PRN (16:42)
[2017-12-13] MEDS: IPRATROPIUM-ALBUTEROL 3 ML NEB INHALATION SCH (20:01)
--- NOTE | 2017-12-13 20:28 | P.HPIM ---
History of Present Illness Chief complaint weakness in legs feeling weak at home. History of present illness The patient is a 67-year-old gentleman who has a history of COPD. The patient is a patient of Dr. Finney whom I am covering. Basically yesterday he was working throughout the day and this morning he became fairly weak. Developing some increasing cough with some phlegm production and feverishness at home. Apparently when he was walking back from the bathroom in his home his legs gave out and he became very weak. He denied any hemoptysis. No chest pain. Apparently he was brought by EMS to the hospital. Past medical history Patient has history of underlying COPD. Associated with pulmonary hypertension. History of coronary artery disease and ischemic cardiomyopathy with systolic dysfunction History of myocardial infarction. Patient has had a previous ICD and pacemaker placed History of paroxysmal atrial fibrillation History of congestive heart failure with systolic dysfunction chronic Hypothyroidism on replacement therapy. History of macrocytic anemia. He has had a bone marrow by Dr. Pollard in the past Hypertension Surgical history includes previous heart catheterization with stenting. Pacemaker placement. Left shoulder rotator cuff surgery Sacral wound debridement History of colonoscopy with polypectomy History of adverse reaction to Haldol with confusion Home medications Aldactone 25 mg daily Procrit every 3 weeks Protonix 40 mg daily Nitroglycerin 0.4 sublingual when necessary chest pain Multivitamin daily Metoprolol tartrate 25 mg twice a day Lisinopril 2.5 daily Levothyroxine 175 g daily DuoNeb 0.5 mg-3 mg 4 times a day Lasix 40 mg twice a day Folic acid daily Ferrous sulfate 325 mg twice a day Colace 100 mg at at bedtime Plavix 75 mg daily Vitamin D3 2000 units daily Symbicort 160-4.5 g 2 inhalations twice a day Atorvastatin 40 mg at at bedtime Aspirin 81 mg daily Amiodarone 100 mg daily Review of systems As mentioned in history of present illness. Patient denies any unusual headache or visual disturbances. Respiratory system as above. No nausea vomiting or abdominal pain. He denies any urinary or bowel symptoms. No hematuria. No hematochezia. No unusual leg edema. Family history father had coronary artery disease with previous bypass surgery and at the age of 86. Mother in her 30s apparently of breast cancer. Social history Patient states he has not smoked over the past 9 months. Denies any excessive alcohol usage. Physical examination: Temperature was 101.9 in the emergency room. It has decreased down to 101. Pulse of 84 with respirations 18. Blood pressure 96/53 and he is 91% saturated on 2 L. Head and neck exam is unremarkable. No adenopathy or thyromegaly. Extraocular movements are intact. Lungs do reveal decreased breath sounds on the left with some rhonchi and crepitation on the left. Heart tones were slightly irregular with no murmurs or rubs appreciated. Abdomen soft and nontender without rebound guarding or masses. Rectal exam deferred. No edema. He is alert and oriented. Cranial nerves intact. No focal weakness noted. Laboratory White count is elevated at 16.4 with a hemoglobin of 10.9 and a platelet count of 299. MCV elevated at 102 Sodium is 138 with potassium 5.0 and a CO2 content of 36. BUN of 27 with creatinine 1.2 given him a GFR of 63. Glucose was 78. Liver function test generally were good although albumin is slightly low at 3.2. Venous lactic acid was 0.9 Troponin was 0.032 Urinalysis was negative for leukocyte esterase. Influenza A and B were negative. Chest x-ray revealed chronic changes of emphysema along with a left lower lobe infiltrate. EKG shows an atrial sensed ventricular paced rhythm with PVC complexes noted. Impressions 1. Left lower lobe pneumonia along with exacerbation of underlying COPD associated with weakness and shortness of breath. Elevated temperature and white count. Relative hypotension. 2. Underlying COPD 3. History of coronary artery disease and previous myocardial infarction with chronic systolic congestive heart failure. 4. Previous ICD and placement of placement. 5. Paroxysmal atrial fibrillation 6. Hypothyroidism on replacement therapy 7. History of macrocytic anemia. Plans Patient has been admitted and placed on antibiotics. In the form of cefepime and vancomycin. He is on insulin coverage. He is on respiratory treatments. Corticosteroids. Consult have been placed with his pulmonary medicine physician. Further recommendations and treatment pending clinical response and results of above. Past Medical History Past Medical History: Heart Failure, COPD, Hypertension, Myocardial Infarction ( [place]), Renal Disease, Thyroid Disorder, Hypertension, Myocardial Infarction ([place]), Thyroid Disorder Additional Past Medical History / Comment(s): anemia, coumadin toxicity, hypoxia , ASHD, pulmonary, beginnings of cataracts bilaterally, home O2 (2LNC- PRN), Last Myocardial Infarction Date:: 06/24/15 History of Any Multi-Drug Resistant Organisms: C-DIFF, MRSA Date of last positivie culture/infection: 2015 MDRO Source:: sacral wound Past Surgical History: Heart Catheterization With Stent, Orthopedic Surgery, Pacemaker Additional Past Surgical History / Comment(s): 1996 L shoulder rotator cuff surgery, colonoscopy with benign polypectomy.heart stent x1, sacral wound debridement with wound vac Past Anesthesia/Blood Transfusion Reactions: No Reported Reaction Additional Past Anesthesia/Blood Transfusion Reaction / Comment(s): Pt has never received blood. Date of Last Stent Placement:: 06/2015 Type of Cardiac Device: Permanent Pacemaker Device Placement Date:: 11/25/2016 Past Psychological History: No Psychological Hx Reported Smoking Status: Former smoker Past Alcohol Use History: None Reported Past Drug Use History: None Reported - Past Family History Father Family Medical History: Coronary Artery Disease (CAD), Myocardial Infarction ([place] ) Additional Family Medical History / Comment(s): Father at age 86yrs. He had a CABG Mother Family Medical History: Cancer Additional Family Medical History / Comment(s): Mother in her 30's of breast cancer. Medications and Allergies Home Medications Medication Instructions Recorded Confirmed Type Levothyroxine Sodium [Synthroid] 175 mcg PO DAILY 06/23/15 12/13/17 History Multivitamins, Thera [Multivitamin 1 tab PO DAILY 06/24/15 12/13/17 History (formulary)] Amiodarone [Cordarone] 100 mg PO DAILY 09/04/15 12/13/17 History Aspirin 81 mg PO DAILY 09/04/15 12/13/17 History Atorvastatin [Lipitor] 40 mg PO HS tab 09/22/15 12/13/17 Rx Clopidogrel [Plavix] 75 mg PO DAILY tab 09/22/15 12/13/17 Rx Nitroglycerin Sl Tabs [Nitrostat] 0.4 mg SUBLINGUAL Q5M PRN #0 tab 09/22/1503/25 Rx Budesonide/Formoterol Fumarate 2 puff INHALATION RT-BID 09/29/15 12/13/17 History [Symbicort 160-4.5 Mcg Inhaler] Ferrous Sulfate [Iron (65 MG 325 mg PO BID 10/04/15 12/13/17 History Elemental)] Ipratropium-Albuterol Nebulize 3 ml INHALATION RT-QID PRN 10/29/16 12/13/17 History [Duoneb 0.5 mg-3 mg/3 ml Soln] Pantoprazole [Protonix] 40 mg PO DAILY 10/29/16 12/13/17 History Furosemide [Lasix] 40 mg PO BID@0900,1600 #60 tab 12/06/16 12/13/17 Rx Lisinopril [Zestril] 2.5 mg PO DAILY 02/13/17 12/13/17 History Spironolactone [Aldactone] 25 mg PO DAILY 02/13/17 12/13/17 History Cholecalciferol (Vitamin D3) 2,000 unit PO DAILY 12/13/17 12/13/17 History [Vitamin D3] Docusate [Colace] 100 mg PO HS 12/13/17 12/13/17 History Folic Acid 0.8 mg PO DAILY 12/13/17 12/13/17 History Metoprolol Tartrate [Lopressor] 25 mg PO BID 12/13/17 12/13/17 History Procrit(Unknown Dose) 1 dose IJ Q21D 12/13/17 12/13/17 History Allergies Allergy/AdvReac Type Severity Reaction Status Date / Time haloperidol [From Haldol] AdvReac Confusion Verified 12/13/17 14:30 Physical Exam Vitals: Vital Signs Temp Pulse Pulse Resp BP BP Pulse Ox 12/13/17 18:12 101.0 F H 95 18 96/53 91 L 12/13/17 17:25 100 16 95/51 96 12/13/17 17:12 101.1 F H 12/13/17 16:55 92 12/13/17 16:45 97 12/13/17 16:03 102 H 16 91/55 93 L 12/13/17 14:04 101.9 F H 118 H 20 118/66 93 L Intake and Output 12/13/17 12/13/17 12/13/17 06:59 14:59 22:59 Other: Weight 63.957 kg Results CBC & Chem 7: 12/13/17 14:14 12/13/17 14:14 Labs: Abnormal Lab Results - Last 24 Hours (Table) 12/13/17 12/13/17 Range/Units 14:14 14:14 WBC 16.4 H (3.8-10.6) k/uL RBC 3.17 L (4.30-5.90) m/uL Hgb 10.9 L (13.0-17.5) gm/dL Hct 32.5 L (39.0-53.0) % MCV 102.6 H (80.0-100.0) fL Neutrophils # 15.1 H (1.3-7.7) k/uL Lymphocytes # 0.3 L (1.0-4.8) k/uL Chloride 96 L (98-107) mmol/L Carbon Dioxide 36 H (22-30) mmol/L BUN 27 H (9-20) mg/dL ALT 20 L (21-72) U/L Total Protein 5.9 L (6.3-8.2) g/dL Albumin 3.2 L (3.5-5.0) g/dL
[2017-12-13] MEDS: INSULIN ASPART 100 UNIT/ML 1 ML 10 ML VIAL SQ SCH (20:49)
[2017-12-13] MEDS: METOPROLOL TARTRATE 25 MG TAB PO SCH (20:50)
[2017-12-13] MEDS: ATORVASTATIN 40 MG TAB PO SCH (20:50)
[2017-12-13 21:01] LABS: Glucose,Whole Blood 129 mg/dL (75-99)
[2017-12-13 21:27] VITALS: BMI 21.9
[2017-12-13] MEDS: ACETAMINOPHEN TAB 325 MG TAB PO PRN (21:52)
[2017-12-13 23:51] LABS: Hemoglobin A1C 5.3 % (4.0-6.0)
[2017-12-13] MEDS: methylPREDNISolone SOD SUCCI 125 MG/2 ML VIAL IV SCH (23:51)
[2017-12-13] MEDS: CEFEPIME 2 GM in SODIUM CHLORIDE 0.9% 50 ML IVPB SCH (23:51)
[2017-12-14] MEDS: ACETAMINOPHEN TAB 325 MG TAB PO PRN ×5 (01:40→22:14)
[2017-12-14] MEDS: methylPREDNISolone SOD SUCCI 125 MG/2 ML VIAL IV SCH ×4 (05:23→23:24)
[2017-12-14] MEDS: LEVOTHYROXINE 88 MCG TAB PO SCH (05:23)
[2017-12-14 07:23] LABS: Glucose,Whole Blood 148 mg/dL (75-99)
[2017-12-14] MEDS: IPRATROPIUM-ALBUTEROL 3 ML NEB INHALATION SCH ×4 (07:43→20:16)
[2017-12-14 07:56] LABS: Basophils % (A) 0 %; Eosinophils % (A) 0 %; HGB 10.3 gm/dL (13.0-17.5); Hypochromasia Moderate; Lymphocytes # (A) 0.4 k/uL (1.0-4.8); Lymphocytes % (A) 2 %; MCH 32.5 pg (25.0-35.0); MCHC 31.2 g/dL (31.0-37.0); MCV 104.1 fL (80.0-100.0); Macrocytosis Moderate; Mean Platelet Volume 7.2; Monocytes # (A) 0.3 k/uL (0-1.0); Monocytes % (A) 1 %; Neutrophils # (A) 18.4 k/uL (1.3-7.7); Neutrophils % (A) 97 %; Platelet Count 291 k/uL (150-450); RBC 3.17 m/uL (4.30-5.90); RDW 14.4 % (11.5-15.5); WBC 19.1 k/uL (3.8-10.6)
[2017-12-14 08:07] LABS: Calcium 9.6 mg/dL (8.4-10.2)
[2017-12-14] MEDS: CEFEPIME 2 GM in SODIUM CHLORIDE 0.9% 50 ML IVPB SCH ×3 (08:14→23:21)
[2017-12-14] MEDS: SPIRONOLACTONE 25 MG TAB PO SCH (08:15)
[2017-12-14] MEDS: FUROSEMIDE 40 MG TAB PO SCH ×2 (08:15→17:08)
[2017-12-14] MEDS: AMIODARONE 100 MG TAB PO SCH (08:15)
[2017-12-14] MEDS: PANTOPRAZOLE 40 MG TABLET PO SCH (08:15)
[2017-12-14] MEDS: CLOPIDOGREL 75 MG TAB PO SCH (08:15)
[2017-12-14] MEDS: LISINOPRIL 2.5 MG TAB PO SCH (08:15)
[2017-12-14] MEDS: ASPIRIN 81 MG PO SCH (08:15)
[2017-12-14] MEDS: METOPROLOL TARTRATE 25 MG TAB PO SCH ×2 (08:15→22:15)
[2017-12-14] MEDS: INSULIN ASPART 100 UNIT/ML 1 ML 10 ML VIAL SQ SCH ×4 (08:15→22:18)
[2017-12-14] MEDS: VANCOMYCIN 1,250 MG in SODIUM CHLORIDE 0.9% 250 ML IVPB SCH (08:59)
[2017-12-14 12:27] LABS: Glucose,Whole Blood 151 mg/dL (75-99)
--- NOTE | 2017-12-14 15:13 | PN ---
PROGRESS NOTE He is a 67-year-old gentleman. He is a patient of Dr. Finney for whom I am covering. The patient presented yesterday to the emergency room with cough, shortness of breath and temperature found at that time to have a left lower lobe pneumonia. He was brought in via EMS. States that he feels somewhat better this morning. Still having some cough and shortness of breath with exertion. His temperature has been down. Last vital signs reveal a temperature 96.7 with a pulse of 86, respirations 20, blood pressure is 98/68, and he is 94% saturated on 2 L nasal cannula. Lungs sound with better air entry on the left as opposed to yesterday and less rhonchi on the left side. Otherwise, heart tones were regular. Abdomen nontender. No unusual edema. No focal neurological deficits. LAB: Testing from today revealed a white count went [place] 16 [place] [address], although he is on corticosteroids, hemoglobin is 10.3, and does have a history of macrocytic anemia. His MCV is 104 and neutrophils are elevated at 18.4%. Sodium is 135, potassium of 5 , CO2 content was 31. His BUN is 28 with creatinine 1.18 giving him a GFR of 64, and blood sugar was 155. IMPRESSION: Left lower lobe pneumonia and was seen on admitting chest x-ray and this was associated with shortness of breath and leukocytosis and weakness. This is superimposed on coronary artery disease and chronic systolic congestive heart failure, chronic obstructive pulmonary disease, previous ICD placement, paroxysmal atrial fib, hypothyroidism, and anemia. PLANS: Are to continue present medications pending consultation by Pulmonary Medicine. Repeat chest x-ray to be ordered and further recommendation and treatment pending clinical response and results of above. MMODL / IJN: [id number] / MTDRo
--- NOTE | 2017-12-14 15:32 | XR ---
EXAMINATION TYPE: XR chest 2V DATE OF EXAM: 12/14/2017 COMPARISON: 12/13/2017 INDICATION: Pneumonia TECHNIQUE: Frontal and lateral views of the chest are obtained. FINDINGS: The heart size is normal. The pulmonary vasculature is normal. There is mild infiltrate through the left lung base. This has improved from prior study. Moderate res idual remains. Pacemaker overlies left chest.. IMPRESSION: 1. Improving infiltrate at the left base with moderate residual.
[2017-12-14] MEDS: SYMBICORT 160-4.5 MCG INHALER INHALATION SCH ×2 (15:47→20:29)
[2017-12-14 17:30] LABS: Glucose,Whole Blood 176 mg/dL (75-99)
[2017-12-14 20:51] LABS: Glucose,Whole Blood 168 mg/dL (75-99)
[2017-12-14] MEDS: ATORVASTATIN 40 MG TAB PO SCH (22:15)
[2017-12-15] MEDS: VANCOMYCIN 1,250 MG in SODIUM CHLORIDE 0.9% 250 ML IVPB SCH ×2 (00:12→16:32)
[2017-12-15] MEDS: ACETAMINOPHEN TAB 325 MG TAB PO PRN ×3 (03:01→23:12)
[2017-12-15] MEDS: methylPREDNISolone SOD SUCCI 125 MG/2 ML VIAL IV SCH ×4 (05:48→23:08)
[2017-12-15] MEDS: LEVOTHYROXINE 88 MCG TAB PO SCH (05:48)
[2017-12-15 07:14] LABS: Glucose,Whole Blood 143 mg/dL (75-99)
[2017-12-15] MEDS: IPRATROPIUM-ALBUTEROL 3 ML NEB INHALATION SCH ×4 (07:40→19:10)
[2017-12-15] MEDS: SYMBICORT 160-4.5 MCG INHALER INHALATION SCH ×2 (07:40→19:10)
--- NOTE | 2017-12-15 07:49 | P.PN ---
Progress Note - Text The patient is a 67-year-old gentleman of Dr. Finney for whom I am covering. Patient presented 2 days ago to the emergency room with cough, shortness of breath and a temperature and was found on chest x-ray to have a left lower lobe pneumonia. Patient has been started on antibiotics, respiratory treatments and continued on his inhalers. He does have underlying COPD and is followed by pulmonary medicine as an outpatient. This morning he states she continues to feel better. No chest pain. Improvement in his respirations. Vital signs reveal temperature of 97.5 with a pulse of 88 and respirations 18. Blood pressure 108/59 and he is 94% saturated on 2 L nasal cannula. Lungs have better air entry bilaterally. No wheeze. Abdomen nontender. No unusual edema. No focal neurological deficits. Basic metabolic panel and CBC are pending. Chest x-ray from yesterday showed improvement from admission in the left lower lobe pneumonia. Impressions and plans Patient continues to be improving from his left lower lobe community acquired pneumonia. He is presently on IV cefepime and vancomycin from admission. Chest x-ray showed improvement and patient is improving clinically. The patient to be evaluated by pulmonary medicine today. Possible discharge over the next 24 hours likely with continued improvement and switching to oral antibiotics.
[2017-12-15] MEDS: FUROSEMIDE 40 MG TAB PO SCH ×2 (08:03→16:32)
[2017-12-15] MEDS: CEFEPIME 2 GM in SODIUM CHLORIDE 0.9% 50 ML IVPB SCH ×2 (08:03→23:05)
[2017-12-15] MEDS: INSULIN ASPART 100 UNIT/ML 1 ML 10 ML VIAL SQ SCH ×4 (08:03→23:05)
[2017-12-15] MEDS: SPIRONOLACTONE 25 MG TAB PO SCH (08:03)
[2017-12-15] MEDS: ASPIRIN 81 MG PO SCH (08:03)
[2017-12-15] MEDS: PANTOPRAZOLE 40 MG TABLET PO SCH (08:03)
[2017-12-15] MEDS: CLOPIDOGREL 75 MG TAB PO SCH (08:03)
[2017-12-15] MEDS: AMIODARONE 100 MG TAB PO SCH (08:04)
[2017-12-15] MEDS: LISINOPRIL 2.5 MG TAB PO SCH (08:04)
[2017-12-15] MEDS: METOPROLOL TARTRATE 25 MG TAB PO SCH ×2 (08:08→23:08)
[2017-12-15 08:43] LABS: Basophils % (A) 0 %; Eosinophils % (A) 0 %; HCT 30.8 % (39.0-53.0); HGB 9.5 gm/dL (13.0-17.5); Hypochromasia Moderate; Lymphocytes # (A) 0.4 k/uL (1.0-4.8); Lymphocytes % (A) 2 %; MCHC 30.7 g/dL (31.0-37.0); MCV 104.1 fL (80.0-100.0); Macrocytosis Moderate; Mean Platelet Volume 7.5; Monocytes # (A) 0.3 k/uL (0-1.0); Monocytes % (A) 2 %; Neutrophils # (A) 14.9 k/uL (1.3-7.7); Neutrophils % (A) 96 %; Platelet Count 275 k/uL (150-450); RBC 2.96 m/uL (4.30-5.90); RDW 14.3 % (11.5-15.5); WBC 15.5 k/uL (3.8-10.6)
[2017-12-15 09:03] LABS: Calcium 9.7 mg/dL (8.4-10.2); Potassium 4.7 mmol/L (3.5-5.1)
[2017-12-15 12:05] LABS: Glucose,Whole Blood 140 mg/dL (75-99)
--- NOTE | 2017-12-15 13:06 | P.CNPUL ---
History of Present Illness Consult date: 12/15/17 Reason for consult: dyspnea, cough, COPD, hypoxemia, pneumonia, abnormal CXR/CT Chief complaint: Shortness of breath/weakness/fever History of present illness: Consult dated 12/15/2017 67-year-old male with a history of COPD on home oxygen presents to the emergency department with complaints of cough or chest congestion and phlegm production fever chills and weakness. The patient was apparently seen in the emergency room and admitted with a diagnosis of possible pneumonia as well as COPD exacerbation. He is currently on home O2 at 2 L/m 24 7. He states that over last 2 or 3 days prior to admission he developed the above complaints including chest congestion coughing wheezing shortness of breath phlegm production and fever. He also felt very wobbly just getting up out of bed and walking to the bathroom. For that reason he came into the emergency room. Denies any nausea vomiting or diarrhea. No chest pain or chest pressure. No palpitations. No urinary complaints for that matter. His past medical history includes heart failure COPD hypertension myocardial infarction hypothyroidism hypertension anemia cataracts and C. diff colitis. Today in the room, he feels much better. Even after being here for a couple days he feels well enough to possibly go home although is likely he will call for another day or so. We'll make sure that he has follow-up with me in the office post discharge. Review of Systems A 12 point review of system is positive for shortness of breath chest tightness wheezing cough chest congestion phlegm production and possibly some fever and chills. Past Medical History Past Medical History: Heart Failure, COPD, Hypertension, Myocardial Infarction ( SD), Renal Disease, Thyroid Disorder, Hypertension, Myocardial Infarction (SD), Thyroid Disorder Additional Past Medical History / Comment(s): anemia, coumadin toxicity, hypoxia , ASHD, pulmonary, beginnings of cataracts bilaterally, home O2 (2LNC- PRN), Last Myocardial Infarction Date:: 06/24/15 History of Any Multi-Drug Resistant Organisms: C-DIFF, MRSA Date of last positivie culture/infection: 2015 MDRO Source:: sacral wound Past Surgical History: Heart Catheterization With Stent, Orthopedic Surgery, Pacemaker Additional Past Surgical History / Comment(s): 1996 L shoulder rotator cuff surgery, colonoscopy with benign polypectomy.heart stent x1, sacral wound debridement with wound vac in 09/2015 Past Anesthesia/Blood Transfusion Reactions: No Reported Reaction Additional Past Anesthesia/Blood Transfusion Reaction / Comment(s): Pt has never received blood. Date of Last Stent Placement:: 06/2015 Type of Cardiac Device: Permanent Pacemaker Device Placement Date:: 11/25/2016 Past Psychological History: No Psychological Hx Reported Additional Psychological History / Comment(s): . Smoking Status: Former smoker Past Alcohol Use History: None Reported Additional Past Alcohol Use History / Comment(s): Pt states he quit smoking He started smoking in 1968 and was a 1ppd smoker. Past Drug Use History: None Reported - Past Family History Father Family Medical History: Coronary Artery Disease (CAD), Myocardial Infarction (SD ) Additional Family Medical History / Comment(s): Father at age 86yrs. He had a CABG Mother Family Medical History: Cancer Additional Family Medical History / Comment(s): Mother in her 30's of breast cancer. Medications and Allergies Home Medications Medication Instructions Recorded Confirmed Type Levothyroxine Sodium [Synthroid] 175 mcg PO DAILY 06/23/15 12/13/17 History Multivitamins, Thera [Multivitamin 1 tab PO DAILY 06/24/15 12/13/17 History (formulary)] Amiodarone [Cordarone] 100 mg PO DAILY 09/04/15 12/13/17 History Aspirin 81 mg PO DAILY 09/04/15 12/13/17 History Atorvastatin [Lipitor] 40 mg PO HS tab 09/22/15 12/13/17 Rx Clopidogrel [Plavix] 75 mg PO DAILY tab 09/22/15 12/13/17 Rx Nitroglycerin Sl Tabs [Nitrostat] 0.4 mg SUBLINGUAL Q5M PRN #0 tab 09/22/1503/25 Rx Budesonide/Formoterol Fumarate 2 puff INHALATION RT-BID 09/29/15 12/13/17 History [Symbicort 160-4.5 Mcg Inhaler] Ferrous Sulfate [Iron (65 MG 325 mg PO BID 10/04/15 12/13/17 History Elemental)] Ipratropium-Albuterol Nebulize 3 ml INHALATION RT-QID PRN 10/29/16 12/13/17 History [Duoneb 0.5 mg-3 mg/3 ml Soln] Pantoprazole [Protonix] 40 mg PO DAILY 10/29/16 12/13/17 History Furosemide [Lasix] 40 mg PO BID@0900,1600 #60 tab 12/06/16 12/13/17 Rx Lisinopril [Zestril] 2.5 mg PO DAILY 02/13/17 12/13/17 History Spironolactone [Aldactone] 25 mg PO DAILY 02/13/17 12/13/17 History Cholecalciferol (Vitamin D3) 2,000 unit PO DAILY 12/13/17 12/13/17 History [Vitamin D3] Docusate [Colace] 100 mg PO HS 12/13/17 12/13/17 History Folic Acid 0.8 mg PO DAILY 12/13/17 12/13/17 History Metoprolol Tartrate [Lopressor] 25 mg PO BID 12/13/17 12/13/17 History Procrit(Unknown Dose) 1 dose IJ Q21D PRN 12/13/17 12/13/17 History Allergies Allergy/AdvReac Type Severity Reaction Status Date / Time haloperidol [From Haldol] AdvReac Confusion Verified 12/13/17 14:30 Physical Exam Osteopathic Statement: *. No significant issues noted on an osteopathic structural exam other than those noted in the History and Physical/Consult. Vitals: Vital Signs Temp Pulse Pulse Resp BP BP Pulse Ox 12/15/17 11:30 94 12/15/17 11:20 94 12/15/17 07:50 92 12/15/17 07:40 88 12/15/17 07:00 97.5 F L 73 18 108/59 94 L 12/14/17 23:11 98.0 F 91 18 96/53 93 L 12/14/17 22:09 98.4 F 103 H 100/59 91 L 12/14/17 20:29 84 12/14/17 20:17 84 12/14/17 16:03 80 12/14/17 15:48 80 12/14/17 15:00 98.7 F 82 16 110/80 98 Intake and Output 12/14/17 12/15/17 12/15/17 22:59 06:59 14:59 Other: Voiding Method Toilet # Voids 1 2 Weight 64 kg No acute distress, oriented 3. Nasal O2 in place. HEENT examination is grossly unremarkable. Mucous membranes are moist. No oral lesions. Neck supple. Full range of motion. No adenopathy thyromegaly or neck vein distention. Cardiovascular examination reveals regular rhythm rate. S1-S2 normal. No S3 or S4. No discernible murmur noted. Lungs reveal coarse bibasilar crackles. Breath sounds are diminished. Slight prolongation. There are expiratory wheezes noted throughout.. There is prolongation on forced maneuver. Abdomen soft bowel sounds are heard. No masses or tenderness. Extremities are intact. No cyanosis clubbing or edema. Skin is without rash or lesion. Neurologic examination is brief but nonfocal. Results - Laboratory Findings CBC and BMP: 12/15/17 08:23 12/15/17 08:23 Abnormal lab findings: Abnormal Labs 12/13/17 12/13/17 12/13/17 14:14 14:14 20:34 WBC 16.4 H RBC 3.17 L Hgb 10.9 L Hct 32.5 L MCV 102.6 H MCHC Neutrophils # 15.1 H Lymphocytes # 0.3 L Sodium Chloride 96 L Carbon Dioxide 36 H BUN 27 H Creatinine Glucose POC Glucose (mg/dL) 129 H ALT 20 L Total Protein 5.9 L Albumin 3.2 L 12/14/17 12/14/17 12/14/17 07:09 07:18 07:18 WBC 19.1 H RBC 3.17 L Hgb 10.3 L Hct 33.0 L MCV 104.1 H MCHC Neutrophils # 18.4 H Lymphocytes # 0.4 L Sodium 135 L Chloride 94 L Carbon Dioxide 31 H BUN 28 H Creatinine Glucose 155 H POC Glucose (mg/dL) 148 H ALT Total Protein Albumin 12/14/17 12/14/17 12/14/17 12:24 17:27 20:50 WBC RBC Hgb Hct MCV MCHC Neutrophils # Lymphocytes # Sodium Chloride Carbon Dioxide BUN Creatinine Glucose POC Glucose (mg/dL) 151 H 176 H 168 H ALT Total Protein Albumin 12/15/17 12/15/17 12/15/17 07:10 08:23 08:23 WBC 15.5 H RBC 2.96 L Hgb 9.5 L Hct 30.8 L MCV 104.1 H MCHC 30.7 L Neutrophils # 14.9 H Lymphocytes # 0.4 L Sodium Chloride 97 L Carbon Dioxide 31 H BUN 38 H Creatinine 1.47 H Glucose 139 H POC Glucose (mg/dL) 143 H ALT Total Protein Albumin 12/15/17 12:03 WBC RBC Hgb Hct MCV MCHC Neutrophils # Lymphocytes # Sodium Chloride Carbon Dioxide BUN Creatinine Glucose POC Glucose (mg/dL) 140 H ALT Total Protein Albumin - Diagnostic Findings Chest x-ray: image reviewed (X-ray labs and medications are reviewed. Chest x- ray shows a left lower lobe infiltrate.) Assessment and Plan Assessment: Assessment Left lower lobe pneumonia COPD exacerbation History of heart failure. History of benign essential hypertension Previous history of myocardial infarction History of hypothyroidism History of anemia History of cataracts Previous history of C. diff colitis Previous history of MRSA infection Plan: Plan dated 12/25/2017 The patient seemed be doing relatively well. We'll review his medications labs and x-rays. Chest x-ray shows improving infiltrate in the left lower lobe. He feels well. We will make sure he has follow-up with me in the office post discharge. Additional recommendations are made. Prognosis is guarded. Time with Patient: Greater than 30
[2017-12-15 17:10] LABS: Glucose,Whole Blood 197 mg/dL (75-99)
[2017-12-15 20:47] LABS: Glucose,Whole Blood 129 mg/dL (75-99)
[2017-12-15] MEDS: ATORVASTATIN 40 MG TAB PO SCH (23:07)
[2017-12-16] MEDS: methylPREDNISolone SOD SUCCI 125 MG/2 ML VIAL IV SCH (05:06)
[2017-12-16] MEDS: CEFEPIME 2 GM in SODIUM CHLORIDE 0.9% 50 ML IVPB SCH (05:07)
[2017-12-16] MEDS: ACETAMINOPHEN TAB 325 MG TAB PO PRN (05:11)
[2017-12-16] MEDS: PANTOPRAZOLE 40 MG TABLET PO SCH (06:40)
[2017-12-16] MEDS: LEVOTHYROXINE 88 MCG TAB PO SCH (06:40)
--- NOTE | 2017-12-16 07:00 | P.PN ---
Progress Note - Text Mr. Mota is a 67-year-old gentleman who is a patient of Dr. Finney's for whom I am covering. He presented 3 days previous to the emergency room and found to have a left lower lobe pneumonia. He has been on antibiotics along with his respiratory treatments and inhalers and has clinically been improving with increasing endurance and less shortness of breath. Last vitals, temperature 97.8 with a pulse of 81 and respirations 16. Blood pressure 119/69 and he is 95% saturated on 2 L. Lungs still reveal some diffuse crepitations on the left but no wheezing. Heart tones are regular. No unusual edema. Patient is sitting up at the side of the bed. He is alert and oriented without focal neurological changes. Blood sugar this morning is 129. Impressions and plans This is a 67-year-old gentleman with underlying COPD and left lower lobe pneumonia. The patient has been seen by pulmonary medicine. Likely patient will be able to be discharged this afternoon. We'll await for final recommendations for outpatient antibiotics from pulmonary medicine and patient will follow-up with Dr. Hou and Dr. Finney as an outpatient as discussed with patient at bedside this morning. He will continue his previous home medications.
[2017-12-16 07:34] LABS: Glucose,Whole Blood 118 mg/dL (75-99)
[2017-12-16 07:56] VITALS: BP 130/71; RESP 18; TEMP 96.4
[2017-12-16] MEDS: INSULIN ASPART 100 UNIT/ML 1 ML 10 ML VIAL SQ SCH (07:59)
[2017-12-16] MEDS ORDERED: VANCOMYCIN TROUGH DUE 1 EACH MISC MISCELLANE ONE (08:00)
[2017-12-16] MEDS: VANCOMYCIN 1,250 MG in SODIUM CHLORIDE 0.9% 250 ML IVPB SCH (08:01)
[2017-12-16] MEDS: LISINOPRIL 2.5 MG TAB PO SCH (08:02)
[2017-12-16] MEDS: FUROSEMIDE 40 MG TAB PO SCH (08:02)
[2017-12-16] MEDS: ASPIRIN 81 MG PO SCH (08:02)
[2017-12-16] MEDS: METOPROLOL TARTRATE 25 MG TAB PO SCH (08:02)
[2017-12-16] MEDS: AMIODARONE 100 MG TAB PO SCH (08:02)
[2017-12-16] MEDS: CLOPIDOGREL 75 MG TAB PO SCH (08:02)
[2017-12-16] MEDS: SPIRONOLACTONE 25 MG TAB PO SCH (08:02)
[2017-12-16] MEDS: SYMBICORT 160-4.5 MCG INHALER INHALATION SCH (08:20)
[2017-12-16] MEDS: IPRATROPIUM-ALBUTEROL 3 ML NEB INHALATION SCH ×2 (08:20→12:28)
[2017-12-16 08:51] LABS: Basophils % (A) 0 %; Eosinophils % (A) 0 %; HCT 34.5 % (39.0-53.0); HGB 10.4 gm/dL (13.0-17.5); Hypochromasia Moderate; Lymphocytes # (A) 0.3 k/uL (1.0-4.8); Lymphocytes % (A) 3 %; MCH 31.5 pg (25.0-35.0); MCHC 30.1 g/dL (31.0-37.0); MCV 104.5 fL (80.0-100.0); Macrocytosis Moderate; Mean Platelet Volume 7.4; Monocytes # (A) 0.4 k/uL (0-1.0); Monocytes % (A) 3 %; Neutrophils # (A) 11.2 k/uL (1.3-7.7); Neutrophils % (A) 94 %; Platelet Count 329 k/uL (150-450); RBC 3.31 m/uL (4.30-5.90); RDW 14.4 % (11.5-15.5)
[2017-12-16 09:23] LABS: Calcium 9.9 mg/dL (8.4-10.2); Potassium 4.8 mmol/L (3.5-5.1)
--- NOTE | 2017-12-16 10:44 | CDI ---
Last Revision, August 2017 Documentation Clarification Form Date: 12/16/17 From: Cate Miller RN, CCDS Admit Date: 12/13/2017 4:42:00 PM Patient Name: Rogers Mota Visit Number: [id number] Discharge Date: ATTENTION: The Clinical Documentation Specialists (CDI) and [facility] Coding Staff appreciate your assistance in clarifying documentation. Please respond to the clarification below the line at the bottom and electronically sign. The CDI & [facility] Coding staff will review the response and follow-up if needed. Please note: Queries are made part of the Legal Health Record. If you have any questions, please contact the author of this message via ITS. Dr. Eliseo Lorenzo H&P has documentation of temperature 101.9 in the emergency room. Pulse of 84 with respirations 18. Blood pressure 96/54 and his sat's 91 % 2/L. History/Risk Factors: COPD, Chronic Systolic CHF, Hypertension Clinical Indicators: Present with complaints of weakness, cough and fever. WBC/Left Shift 16.4, 19.1 Lactic acid: 0.9 Chest x-ray: new left basilar infiltrate Blood cultures: no growth after 48 hours Vitals signs on admission: 118/66 118 101.9 93 % RA, Treatment Albuterol Duoneb's Inhalation, Symbicort Inhalation Cefepime IV, Vancomycin IV Solu-medrol IV (taper) Monitor Labs, O2 Sat's, In your professional opinion, please clarify if these findings signify one of the following conditions, whether the condition is POA, and cause, if known: Condition Sepsis ruled out Sepsis Other, please specify Unable to determine Patient likely had early sepsis fron pneumonia present on admission. with hypotension Present on Admission: Yes Identify the (suspected) organism unknown Link or clarify if there is associated (due to/with): Organ failure no Shock SIRS Criteria..2 or more of the following may indicate SIRS: Temperature < 96.8F (36C) or > 101.0F (38.3C) Heart Rate > 90 bpm Respiratory Rate > 20 breaths/min or PaCO2 < 32 mmHg White Blood Cell Count > 12,000 or < 4,000 cells/mm3 or > 10% bands Lactate >2.0 mmol/L (>4.0 is equivalent to septic shock) Please continue to document in your progress notes and discharge summary in order to capture severity of illness and risk of mortality. Include clinical findings that support your diagnosis. MTDD
--- NOTE | 2017-12-16 11:08 | CDI ---
Last Revision, August 2017 Documentation Clarification Form Date: 12/16/17 From: Cate Miller RN, CCDS Admit Date: 12/13/2017 4:42:00 PM Patient Name: Rogers Mota Visit Number: [id number] Discharge Date: ATTENTION: The Clinical Documentation Specialists (CDI) and [facility] Coding Staff appreciate your assistance in clarifying documentation. Please respond to the clarification below the line at the bottom and electronically sign. The CDI & [facility] Coding staff will review the response and follow-up if needed. Please note: Queries are made part of the Legal Health Record. If you have any questions, please contact the author of this message via ITS. Dr. Hari Hou The patient presented with a diagnosis of dyspnea, cough, COPD, hypoxemia, pneumonia, Documentation and location in medical record included: History/Risk Factors: COPD Tobacco use: Former smoker Home oxygen: 2/L NC Clinical Indicators: Patient with complaints of shortness of breath, weakness and fever. He is currently on home O2 at 2/L NC 31/03. He developed coughing wheezing and phlegm production. Vital signs: 118/66 118 101.9 Pulse oximetry: 93 % 2/L NC Lung/Breathing assessment: coarse bibasilar crackles. Breath sounds are diminished. There are expiratory wheezes noted throughout. Labs: WBC 16.4, CO2 36, Treatment: Breathing tx: Duoneb's QID Symbicort BID Solu-Medrol IV (taper) Monitor O2 Sat's In your professional opinion, can you please clarify if these findings signify one of the following conditions? Acuity: Acute Chronic Acute on Chronic Specificity: Respiratory Failure, further specify (if known): With hypercapnia? With hypoxia? Other Diagnosis, please specify Unable to determine Please continue to document in your progress notes and discharge summary in order to capture severity of illness and risk of mortality. Include clinical findings that support your diagnosis. MTDD
--- NOTE | 2017-12-16 11:20 | CDI ---
Last Revision, August 2017 Documentation Clarification Form Date: 12/16/17 From: Cate Miller RN, CCDS Admit Date: 12/13/2017 4:42:00 PM Patient Name: Rogers Mota Visit Number: [id number] Discharge Date: ATTENTION: The Clinical Documentation Specialists (CDI) and [facility] Coding Staff appreciate your assistance in clarifying documentation. Please respond to the clarification below the line at the bottom and electronically sign. The CDI & [facility] Coding staff will review the response and follow-up if needed. Please note: Queries are made part of the Legal Health Record. If you have any questions, please contact the author of this message via ITS. Dr. Eliseo Lorenzo Renal disease was documented in the past medical history. History/Risk Factors: Chronic Systolic Heart Failure, COPD, Hypertension, Renal Disease Patients baseline on admission: BUN 27, CR 1.20 GFR: 63 Clinical Indicators: Complains of weakness in legs feeling weak at home. Developed increasing cough with some phlegm production and fever. Current : BUN 42, Cr `1.56 GFR 46 Treatment: Monitor Labs In order to capture the severity of condition, please clarify if the condition signifies: Acute renal failure, Please specify etiology (if known): Cortical Necrosis Medullary Necrosis Tubular Necrosis Acute kidney injury Acute on chronic renal failure CKD Stage 1 GFR >90 CKD Stage 2 GFR 60-89 CKD Stage 3 GFR 30-59. yes acute on chronic stage 3, POA. CKD Stage 4 GFR 15-29 Chronic renal failure/Chronic Kidney disease (CKD) please stage if known CKD Stage 1 GFR >90 CKD Stage 2 GFR 60-89 CKD Stage 3 GFR 30-59 Other, please specify Unable to determine Please continue to document in your progress notes and discharge summary in order to capture severity of illness and risk of mortality. Include clinical findings that support your diagnosis. MTDD
--- NOTE | 2017-12-16 12:11 | P.PN ---
Subjective Progress Note Date: 12/16/17 Principal diagnosis: Acute on chronic hypoxemic respiratory failure related to acute COPD exacerbation and left lower lobe pneumonia 67-year-old male with a history of COPD on home oxygen presents to the emergency department with complaints of cough or chest congestion and phlegm production fever chills and weakness. The patient was apparently seen in the emergency room and admitted with a diagnosis of possible pneumonia as well as COPD exacerbation. He is currently on home O2 at 2 L/m 24 7. He states that over last 2 or 3 days prior to admission he developed the above complaints including chest congestion coughing wheezing shortness of breath phlegm production and fever. He also felt very wobbly just getting up out of bed and walking to the bathroom. For that reason he came into the emergency room. Denies any nausea vomiting or diarrhea. No chest pain or chest pressure. No palpitations. No urinary complaints for that matter. His past medical history includes heart failure COPD hypertension myocardial infarction hypothyroidism hypertension anemia cataracts and C. diff colitis. Today in the room, he feels much better. Even after being here for a couple days he feels well enough to possibly go home although is likely he will call for another day or so. We'll make sure that he has follow-up with me in the office post discharge. On 12/16/2017 patient seen in follow-up on medical surgical floor. Denies any acute distress, denies any worsening dyspnea, denies any fever or chills. Patient has been ambulating about the room, tolerating activity quite well. On today's exam patient's lung sounds are positive for a few crackles in the left lower lobe, good air entry noted bilaterally. Today's lab work has been reviewed, white count continues to trend down, and is down to 12.0 from 15.5. BUN is up to 42, creatinine is up to 1.56 on today's labs. Urine and blood cultures showed no growth. Patient has been on a combination of cefepime and vancomycin, patient has been afebrile, vital signs have been stable. From pulmonary standpoint patient is stable for discharge home today, on 7 day course of Levaquin 750 mg daily for 7 more days, he can continue on his maintenance inhalers and nebulized treatments, follow-up with Dr. Hou next week. Objective - Vital Signs Vital signs: Vital Signs Temp 96.4 F L 12/16/17 07:00 Pulse 96 12/16/17 08:36 Resp 18 12/16/17 07:00 BP 130/71 12/16/17 07:00 Pulse Ox 93 L 12/16/17 07:00 Intake & Output 12/15/17 12/16/17 12/16/17 18:59 06:59 18:59 Weight 65 kg 63.5 kg Other: Voiding Method Toilet Toilet # Voids 3 3 - Exam No acute distress, oriented 3. Nasal O2 in place. HEENT examination is grossly unremarkable. Mucous membranes are moist. No oral lesions. Neck supple. Full range of motion. No adenopathy thyromegaly or neck vein distention. Cardiovascular examination reveals regular rhythm rate. S1-S2 normal. No S3 or S4. No discernible murmur noted. Lungs reveal coarse bibasilar crackles. Breath sounds are diminished. Slight prolongation. There are expiratory wheezes noted throughout.. There is prolongation on forced maneuver. Abdomen soft bowel sounds are heard. No masses or tenderness. Extremities are intact. No cyanosis clubbing or edema. Skin is without rash or lesion. Neurologic examination is brief but nonfocal. - Labs CBC & Chem 7: 12/16/17 08:05 12/16/17 08:05 Labs: Abnormal Lab Results - Last 24 Hours (Table) 12/15/17 12/15/17 12/15/17 Range/Units 12:03 17:02 20:38 WBC (3.8-10.6) k/uL RBC (4.30-5.90) m/uL Hgb (13.0-17.5) gm/dL Hct (39.0-53.0) % MCV (80.0-100.0) fL MCHC (31.0-37.0) g/dL Neutrophils # (1.3-7.7) k/uL Lymphocytes # (1.0-4.8) k/uL Chloride (98-107) mmol/L Carbon Dioxide (22-30) mmol/L BUN (9-20) mg/dL Creatinine (0.66-1.25) mg/dL Glucose (74-99) mg/dL POC Glucose (mg/dL) 140 H 197 H 129 H (75-99) mg/dL 12/16/17 12/16/17 12/16/17 Range/Units 07:31 08:05 08:05 WBC 12.0 H (3.8-10.6) k/uL RBC 3.31 L (4.30-5.90) m/uL Hgb 10.4 L (13.0-17.5) gm/dL Hct 34.5 L (39.0-53.0) % MCV 104.5 H (80.0-100.0) fL MCHC 30.1 L (31.0-37.0) g/dL Neutrophils # 11.2 H (1.3-7.7) k/uL Lymphocytes # 0.3 L (1.0-4.8) k/uL Chloride 95 L (98-107) mmol/L Carbon Dioxide 33 H (22-30) mmol/L BUN 42 H (9-20) mg/dL Creatinine 1.56 H (0.66-1.25) mg/dL Glucose 114 H (74-99) mg/dL POC Glucose (mg/dL) 118 H (75-99) mg/dL Microbiology - Last 24 Hours (Table) 12/13/17 14:14 Blood Culture - Preliminary Blood No Growth after 48 hours Assessment and Plan Plan: Assessment: #1. Acute on chronic hypoxic and hypercapnic respiratory failure secondary to left lower lobe pneumonia, possibly healthcare acquired pneumonia, was treated with a combination of cefepime and vancomycin with good clinical response #2. Acute COPD exacerbation #3. History of heart failure, unspecified #4. History of benign essential hypertension #5. Previous history of myocardial infarction #6. History of hypothyroidism #7. History of anemia #8. History of cataracts #9. Previous history of C. diff colitis #10. Previous history of MRSA infection Plan: Vital signs are stable, less dyspnea, patient has been up ambulating in the room , tolerating it well. No acute events overnight, microbiology remains negative thus far. Patient has been treated with a combination of cefepime and vancomycin for possible healthcare acquired left lower lobe pneumonia, has responded well to treatments. From pulmonary standpoint patient is stable for discharge home today, on the 7 day course of Levaquin 750 mg daily. He can continue on his maintenance inhalers and nebulized treatments, he has oxygen at home. Follow-up with Dr. Hou in the office next week. I performed a history & physical examination of the patient and discussed their management with my nurse practitioner, Eliz Barnard. I reviewed the nurse practitioner's note and agree with the documented findings and plan of care. Lung sounds are positive for scattered crackles over left lower lobe. The findings and the impression was discussed with the patient. I attest to the documentation by the nurse practitioner. Time with Patient: Less than 30
[2017-12-16 12:41] VITALS: PULSE 94
[2017-12-16] MEDS ORDERED: CEFEPIME 2 GM in SODIUM CHLORIDE 0.9% 50 ML IVPB SCH (17:00)
[2017-12-17] MEDS ORDERED: VANCOMYCIN 1,250 MG in SODIUM CHLORIDE 0.9% 250 ML IVPB SCH (06:00)
--- NOTE | 2017-12-20 20:41 | DS ---
DISCHARGE SUMMARY Mr. Mota is a 67-year-old gentleman who has a history of COPD and is a patient of Dr. Finney, for whom I was covering, who presented with a previous day history of becoming very weak with increase in cough, phlegm production, feverishness. Even walking in his home from his bathroom, his legs felt very weak and gave out on him. On presentation to the ER, he was found to have a temperature of 101.9, a relatively low blood pressure of 96/53 and a chest x-ray revealed left lower lobe pneumonia. The patient was admitted and placed on antibiotics and consultation obtained with his pulmonary group, Dr. Hou. The patient clinically improved, but remained weak and required respiratory treatments along with the antibiotics. The patient did have blood cultures which were negative. Urine culture also was no growth. Followup chest x-ray showed improvement. The patient was mildly anemic at 10.4, which he does have a history of macrocytic anemia. With clinical and radiologic improvement, the patient was discharged and is to follow up with Pulmonary Medicine along with his primary care physician, Dr. Finney. He was placed on Levaquin 750 mg daily for 7 days. He was to continue his amiodarone, a half of a 200-mg tablet daily, aspirin 81 mg daily, atorvastatin 40 mg daily, Symbicort 160/4.5, 2 inhalations twice a day, cholecalciferol 2000 units daily and Plavix 75 mg daily along with his Colace as needed, furosemide 40 mg twice a day , respiratory treatments as needed with DuoNeb 0.5 mg/3 mg per 3 mL 4 times a day, levothyroxine 175 mcg daily, Zestril 2.5 daily, metoprolol tartrate 25 mg twice a day, multivitamins, nitroglycerin sublingual if needed for chest pain. He is to follow up with Dr. Pollard for his Procrit injections as needed, Protonix 40 mg daily and spironolactone 25 mg daily. He is to follow up with Dr. Finney. DIET: As tolerated. ACTIVITIES: As tolerated. FINAL DISCHARGE DIAGNOSES: 1. Acute left lower lobe pneumonia, organism unspecified. 2. Acute on chronic renal failure stage 3. 3. Underlying chronic obstructive pulmonary disease with exacerbation from pneumonia and pulmonary hypertension. 4. Initial early sepsis with elevated white count, left lower lobe pneumonia and relative hypotension with syncopal episode at home. 5. Underlying history of coronary artery disease and myocardial infarction in the past. 6. The patient has also had a previous implantable cardioverter-defibrillator and pacemaker placement in the past. 7. History of paroxysmal atrial fibrillation. 8. History of congestive heart failure with systolic dysfunction which is chronic. 9. Hypothyroidism on replacement therapy. 10.History of macrocytic anemia for which he had bone marrow and followup with Dr. Pollard. 11.Finally, history of hypertension. Once again, diet and activities as tolerated. MMODL / IJN: [id number] / COLLEEN
== END 2017-12-16 12:39 | disposition home or self-care (01) | DRG 871 ==
LOC: EC 14:02 → 4MS4W 16:42
PROVIDERS: ADMIT Internal Medicine; ATTEND Internal Medicine
DX: A41.9 Sepsis, unspecified organism (principal); J18.9 Pneumonia, unspecified organism; J96.21 Acute and chronic respiratory failure with hypoxia; N17.9 Acute kidney failure, unspecified; I13.0 Hypertensive heart and chronic kidney disease with heart failure and stage 1 through stage 4 chronic kidney disease, or unspecified chronic kidney disease; Z94.81 Bone marrow transplant status; I50.22 Chronic systolic (congestive) heart failure; I27.23 Pulmonary hypertension due to lung diseases and hypoxia; J96.22 Acute and chronic respiratory failure with hypercapnia; J44.0 Chronic obstructive pulmonary disease with (acute) lower respiratory infection; J44.1 Chronic obstructive pulmonary disease with (acute) exacerbation; I48.0 Paroxysmal atrial fibrillation; E03.9 Hypothyroidism, unspecified; I25.10 Atherosclerotic heart disease of native coronary artery without angina pectoris; I25.2 Old myocardial infarction; H26.9 Unspecified cataract; D53.9 Nutritional anemia, unspecified; I25.5 Ischemic cardiomyopathy; N18.3 Chronic kidney disease, stage 3 (moderate); Z79.02 Long term (current) use of antithrombotics/antiplatelets; Z79.51 Long term (current) use of inhaled steroids; Z79.82 Long term (current) use of aspirin; Z79.899 Other long term (current) drug therapy; Z80.3 Family history of malignant neoplasm of breast; Z82.49 Family history of ischemic heart disease and other diseases of the circulatory system; Z86.14 Personal history of Methicillin resistant Staphylococcus aureus infection; Z86.19 Personal history of other infectious and parasitic diseases; Z87.891 Personal history of nicotine dependence; Z95.5 Presence of coronary angioplasty implant and graft; Z95.810 Presence of automatic (implantable) cardiac defibrillator; Z99.81 Dependence on supplemental oxygen; Z79.890 Hormone replacement therapy; Z88.8 Allergy status to other drugs, medicaments and biological substances
CPT/HCPCS: 36415; 71046; 80048; 80053; 80202; 81003; 83036; 83605; 83735; 84484; 85025; 87040; 87086; 87502; 93005; 94640; 94760; 96365; 96375; 99285

== ENCOUNTER → 2019-02-05 | Outpatient (CLI) | payer MEDICARE, OTHER ==
[2019-02-05 18:59] LABS: Anion Gap 5.3 mmol/L (4.00-12.00); Calcium 9.2 mg/dL (8.7-10.3); Carbon Dioxide 33.7 mmol/L (21.6-31.8); Potassium 4.9 mmol/L (3.5-5.5); Uric Acid 5.5 mg/dL (3.7-8.7)
== END | disposition home or self-care (01) ==
LOC: LABWHC1 12:31
PROVIDERS: ATTEND Internal Medicine
DX: M10.9 Gout, unspecified (principal)
CPT/HCPCS: 36415; 80048; 84550

== ENCOUNTER 2019-02-19 06:28 | Day surgery (SDC) | payer MEDICARE, OTHER ==
[2019-02-16 13:02] VITALS: BMI 22.0
[~2019-02-19 06:28] MED LIST changes: +DEXAMETHASONE SOD PHOSPHATE 10 MG/ML 1 ML VIAL IV ONE; +HEPARIN SODIUM,PORCINE 5,000 UNIT/ML 1 ML VIAL SQ ONE; +MIDAZOLAM 2 MG/2 ML VIAL IV PRN; +ceFAZolin IN SWFI 2 GM/20 ML SYRINGE IVP ONE; +fentaNYL (PF) 50 MCG/ML 2 ML AMP IV PRN
--- NOTE | 2019-02-19 07:38 | P.GSHP ---
History of Present Illness H&P Date: 02/19/19 Chief Complaint: Right inguinal hernia Patient here today for repair right inguinal hernia. Patient has had this hernia for quite some time but increasing in pain. No nausea or vomiting. No change in bowel habits. Patient with significant cardiac and pulmonary history. Preoperative clearances have been obtained. Preoperative review of the chart by anesthesia was obtained. Past Medical History Past Medical History: Blood Disorder, Heart Failure, COPD, Eye Disorder, Hearing Disorder / Deafness, Hypertension, Hypertension, Myocardial Infarction ([place]), Myocardial Infarction ([place]), Pneumonia, Renal Disease, Thyroid Disorder, Thyroid Disorder Additional Past Medical History / Comment(s): Anemia. Hx coumadin toxicity, hypoxia, Arteiosclerotic Heart Disease. Beginnings of cataracts bilaterally, hard of hearing. Home O2 24/7(2L/NC), Stage 3 Kidney Failure. 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 Chronic cough, generalized weakness, left leg the worst. Hx Pneumonia 2 yrs ago. Last Myocardial Infarction Date:: 06/24/15 History of Any Multi-Drug Resistant Organisms: MRSA Date of last positivie culture/infection: 2015 MDRO Source:: sacral wound Past Surgical History: Heart Catheterization With Stent, Orthopedic Surgery, Pacemaker Additional Past Surgical History / Comment(s): Left shoulder rotator cuff surgery, colonoscopy with benign polypectomy. Cardiac stent X1, sacral wound debridement with wound vac 09/2015, bone marrow biopsy. Past Anesthesia/Blood Transfusion Reactions: No Reported Reaction Additional Past Anesthesia/Blood Transfusion Reaction / Comment(s): Pt has never received blood. Date of Last Stent Placement:: 06/2015 Type of Cardiac Device: Permanent Pacemaker, AICD Device Placement Date:: 11/25/2016 Past Psychological History: No Psychological Hx Reported Smoking Status: Former smoker Past Alcohol Use History: None Reported Additional Past Alcohol Use History / Comment(s): Quit smoking 06/24/15. He started smoking in 1968 and was a 1ppd smoker. Past Drug Use History: None Reported - Past Family History Father Family Medical History: Cancer, Coronary Artery Disease (CAD), Myocardial Infarction ([place]) Additional Family Medical History / Comment(s): Father at age 86yrs. He had a CABG. Bladder cancer. Mother Family Medical History: Cancer Additional Family Medical History / Comment(s): Mother in her 30's of breast cancer. Medications and Allergies Home Medications Medication Instructions Recorded Confirmed Type Levothyroxine Sodium [Synthroid] 175 mcg PO QAM 06/23/15 02/16/19 History Multivitamins, Thera [Multivitamin 1 tab PO DAILY 06/24/15 02/16/19 History (formulary)] Amiodarone [Cordarone] 100 mg PO QAM 09/04/15 02/16/19 History Aspirin 81 mg PO DAILY 09/04/15 02/16/19 History Atorvastatin [Lipitor] 40 mg PO HS tab 09/22/15 02/16/19 Rx Clopidogrel [Plavix] 75 mg PO DAILY tab 09/22/15 02/16/19 Rx Nitroglycerin Sl Tabs [Nitrostat] 0.4 mg SUBLINGUAL Q5M PRN #0 tab 09/22/15 02/16/19 Rx Budesonide/Formoterol Fumarate 2 puff INHALATION RT-BID 09/29/15 02/16/19 History [Symbicort 160-4.5 Mcg Inhaler] Ferrous Sulfate [Iron (65 MG 325 mg PO BID 10/04/15 02/16/19 History Elemental)] Ipratropium-Albuterol Nebulize 3 ml INHALATION RT-QID PRN 10/29/16 02/16/19 History [Duoneb 0.5 mg-3 mg/3 ml Soln] Pantoprazole [Protonix] 40 mg PO QAM 10/29/16 02/16/19 History Furosemide [Lasix] 40 mg PO BID@0900,1600 #60 tab 12/06/16 02/16/19 Rx Lisinopril [Zestril] 2.5 mg PO QAM 02/13/17 02/16/19 History Spironolactone [Aldactone] 25 mg PO DAILY 02/13/17 02/16/19 History Cholecalciferol (Vitamin D3) 1,000 unit PO DAILY 12/13/17 02/16/19 History [Vitamin D3] Docusate [Colace] 100 mg PO HS 12/13/17 02/16/19 History Folic Acid 0.8 mg PO DAILY 12/13/17 02/16/19 History Metoprolol Tartrate [Lopressor] 25 mg PO BID 12/13/17 02/16/19 History Procrit(Unknown Dose) 1 dose IJ Q21D PRN 12/13/17 02/16/19 History Albuterol Inhaler [Ventolin Hfa 1 - 2 puff INHALATION RT-Q6H PRN 02/16/19 History Inhaler] Allopurinol [Zyloprim] 100 mg PO DAILY 02/16/19 02/16/19 History Cyanocobalamin (Vitamin B-12) 1,000 mcg PO DAILY 02/16/19 02/16/19 History [Vitamin B-12] L.acidoph,Paracasei, B.lactis 1 each PO DAILY 02/16/19 02/16/19 History [Probiotic] Allergies Allergy/AdvReac Type Severity Reaction Status Date / Time haloperidol [From Haldol] AdvReac Confusion Verified 02/19/19 06:44 Surgical - Exam Vital Signs Temp Pulse Resp BP Pulse Ox 98.8 F 63 20 135/60 98 02/19/19 07:11 02/19/19 07:11 02/19/19 07:11 02/19/19 07:11 02/19/19 07:11 Physical exam: General: Well-developed, well-nourished HEENT: Normocephalic, sclerae nonicteric Abdomen: Nontender, nondistended, reducible right inguinal hernia Extremities: No edema Neuro: Alert and oriented Assessment and Plan (1) Right inguinal hernia Narrative/Plan: Will proceed with repair right inguinal hernia open with mesh. Risks of bleeding, infection, recurrence, bladder and bowel injury, numbness, nerve injury were discussed with the patient. The patient understands and wishes to proceed. Current Visit: Yes Status: Acute Code(s): K40.90 - UNIL INGUINAL HERNIA, W/O OBST OR GANGR, NOT SPCF RECUR SNOMED Code(s): 394278140
[2019-02-19] MEDS ORDERED: MIDAZOLAM 2 MG/2 ML VIAL ONE (07:54)
[2019-02-19] MEDS ORDERED: fentaNYL (PF) 50 MCG/ML 2 ML AMP ONE (07:54)
[2019-02-19] MEDS ORDERED: ePHEDrine SULFATE/0.9% NACL/PF 50 MG/5 ML SYRINGE IV ONE (07:54)
[2019-02-19] MEDS ORDERED: PROPOFOL 10 MG/ML 20 ML VIAL IV ONE (07:54)
[2019-02-19] MEDS ORDERED: BUPIVACAIN-EPI 0.25%-1:200,000 30 ML VIAL SQ ONE (08:15)
[2019-02-19] MEDS ORDERED: ONDANSETRON 4 MG/2 ML VIAL IVP ONE ×2 (09:00→10:14)
[2019-02-19] MEDS ORDERED: traMADol 50 MG TAB PO PRN (09:17)
[2019-02-19] MEDS ORDERED: NALOXONE 0.4 MG/ML 1 ML VIAL IV PRN (09:17)
--- NOTE | 2019-02-19 09:21 | P.OP ---
Date of Procedure: 02/19/19 Procedure(s) Performed: PREOPERATIVE DIAGNOSIS: Right inguinal hernia POSTOPERATIVE DIAGNOSIS: Same PROCEDURE: Right inguinal hernia repair with mesh SURGEON: Guero EBL: Minimal ANESTHESIA: General COMPLICATIONS: None OPERATIVE PROCEDURE: Patient was placed in the operating table in the supine position and placed under general anesthesia. An oblique incision was made in the right groin. Dissection down through the subcutaneous tissues took place using electrocautery. The external oblique fascia was incised using a scalpel. This opening was lengthened using the Metzenbaum scissors. The spermatic cord was encircled with a Carlos Eduardo drain. The structures were identified and preserved. Careful dissection revealed an indirect hernia sac. The hernia sac was quite large extending down into the scrotal sac. The hernia sac was opened. There was a small loop of small bowel that was adherent to the inside of the hernia sac. This was sharply dissected away from the hernia sac and reduced back into the perineal cavity. The sac was then ligated using 3 separate 0 silk stick tie sutures. A 3" x 6" Prolene mesh was cut to fit on the exposed fascia. This was sutured to the pubic tubercle the folding edge of the inguinal ligament and the conjoined tendon. A slit was created in the mesh and the mesh was wrapped around the spermatic cord and sutured back to itself. The external oblique was then reapproximated using a running 2-0 Vicryl suture. The subcutaneous tissues were reapproximated using a 3-0 Vicryl sutures. The skin was closed using 4-0 Monocryl sutures. Skin glue and sterile dressings were then applied. DISPOSITION: Stable to recovery room
[2019-02-19 09:23] VITALS: TEMP 97
[2019-02-19] MEDS ORDERED: ALBUTEROL NEBULIZED 2.5 MG/3 ML INHALATION STA (10:56)
[2019-02-19] MEDS ORDERED: traMADol 50 MG TAB PO ONE (11:47)
[2019-02-19 12:56] VITALS: BP 121/54; PULSE 88; RESP 18
== END 2019-02-19 14:15 | disposition home or self-care (01) ==
LOC: OR 06:28
PROVIDERS: ATTEND Surgery
DX: K40.90 Unilateral inguinal hernia, without obstruction or gangrene, not specified as recurrent (principal); I25.10 Atherosclerotic heart disease of native coronary artery without angina pectoris; I11.0 Hypertensive heart disease with heart failure; I13.0 Hypertensive heart and chronic kidney disease with heart failure and stage 1 through stage 4 chronic kidney disease, or unspecified chronic kidney disease; N18.3 Chronic kidney disease, stage 3 (moderate); I50.9 Heart failure, unspecified; I25.5 Ischemic cardiomyopathy; D64.9 Anemia, unspecified; J43.8 Other emphysema; J96.11 Chronic respiratory failure with hypoxia; I48.0 Paroxysmal atrial fibrillation; E78.5 Hyperlipidemia, unspecified; Z86.14 Personal history of Methicillin resistant Staphylococcus aureus infection; E07.9 Disorder of thyroid, unspecified; H91.90 Unspecified hearing loss, unspecified ear; Z87.891 Personal history of nicotine dependence; I25.2 Old myocardial infarction; I65.23 Occlusion and stenosis of bilateral carotid arteries; Z95.5 Presence of coronary angioplasty implant and graft; Z95.810 Presence of automatic (implantable) cardiac defibrillator; Z82.49 Family history of ischemic heart disease and other diseases of the circulatory system; Z80.52 Family history of malignant neoplasm of bladder; Z80.3 Family history of malignant neoplasm of breast; Z79.02 Long term (current) use of antithrombotics/antiplatelets; Z99.81 Dependence on supplemental oxygen; Z79.82 Long term (current) use of aspirin; Z79.890 Hormone replacement therapy; Z79.51 Long term (current) use of inhaled steroids; Z79.899 Other long term (current) drug therapy; Z88.8 Allergy status to other drugs, medicaments and biological substances
CPT/HCPCS: 94640; 88302; 49507; C1781; J2250; J1644; J1100; J2405; J3010; J2704; J0690

== ENCOUNTER 2019-02-20 19:41 | Inpatient (IN) | payer MEDICARE, OTHER ==
[2019-02-20] MEDS ORDERED: IPRATROPIUM-ALBUTEROL 3 ML NEB INHALATION STA (19:51)
[2019-02-20] MEDS ORDERED: DEXAMETHASONE 4 MG TAB PO STA (19:51)
--- NOTE | 2019-02-20 19:51 | ED ---
General Adult HPI - General Stated complaint: Weakness Time Seen by Provider: 02/20/19 19:48 - History of Present Illness Initial comments: Dictation was produced using [employer] dictation software. please excuse any grammatical, word or spelling errors. Chief Complaint: 68-year-old male multiple comorbidities presents generalized weakness. History of Present Illness: Patient is 68-year-old male with multiple comorbidities who presents today for generalized weakness. Patient states he recently had a inguinal hernia repair this performed. Patient states that the surgery went well. Patient has been in his usual state of health until today when he started to feel generally weak. She has been less mobile than usual since his surgery. Patient has strong history of COPD he wears 2 L of nasal cannula at home chronically. EMS was called for generalized weakness. Patient has feeling any shortness of breath. He states his weakness whole-body. He was reports that he did have oxygen in his tank. He has no other complaints at this time. Denies any burning urination. No cough, shortness of breath or abdominal pain. Patient was found to be wheezing by EMS staff. They provided patient with a breathing treatment. Patient states his breathing symptoms improved. The ROS documented in this emergency department record has been reviewed and confirmed by me. Those systems with pertinent positive or negative responses have been documented in the HPI. All other systems are other negative and/or noncontributory. PHYSICAL EXAM: General Impression: Alert and oriented x3, not in acute distress HEENT: Normocephalic atraumatic, extra-ocular movements intact, pupils equal and reactive to light bilaterally, mucous membranes moist. Cardiovascular: Heart regular rate and rhythm, S1&S2 audible, no murmurs, rubs or gallops Chest: Bilateral lung wheezing Abdomen: Bowel sounds present, abdomen soft, non-tender, non-distended, no organomegaly Musculoskeletal: Pulses present and equal in all extremities, no peripheral edema Motor: no focal deficits noted Neurological: CN II-XII grossly intact, no focal motor or sensory deficits noted Skin: Intact with no visualized rashes, surgical site clean dry and intact to the right inguinal area Psych: Normal affect and mood ED course: 68 yo male with multiple comorbidities presents with generalized weakness. Laboratory evaluation obtained. Patient has mild leukocytosis of 13.2 with secondary to stress postoperatively. Rest of CBC is grossly baseline for patient. Coag panel unremarkable. Patient's sodium is 1:30, potassium 5.6 with hemolysis, acute kidney injury. Creatinine is 2.55. Patient's prematurity peptide of 4000. Patient has history of heart failure. He has slight elevation of troponin which is likely secondary troponin leak. Patient has no chest pain. Patient. He is on Lasix. Clinical presentation so for is concerning for acute kidney injury given acute elevation of renal markers. This x-ray shows possible pneumonia. Patient started on azithromycin and ceftriaxone just as a precaution that patient has multiple comorbidities. Patient does not have overwhelming symptoms to suggest pulmonary infection. Given gentle hydration and antibiotic s. who is not present at bedside reports that patient has been a little more hypoxic than usual. EKG interpretation: Ventricular rate 77, sinus rhythm with first-degree AV block,. Interval to 20, QS 172, QTC 493. No VA prolongation, no QTC prolongation, no ST or T-wave changes noted. EKG compared to 12/13/2017 showing no changes. Overall, this EKG is unremarkable - Related Data Home Medications Medication Instructions Recorded Confirmed Multivitamins, Thera [Multivitamin 1 tab PO DAILY 06/24/15 02/20/19 (formulary)] Amiodarone [Cordarone] 100 mg PO DAILY 09/04/15 02/20/19 Aspirin 81 mg PO DAILY 09/04/15 02/20/19 Budesonide/Formoterol Fumarate 2 puff INHALATION RT-BID 09/29/15 02/20/19 [Symbicort 160-4.5 Mcg Inhaler] Ferrous Sulfate [Iron (65 MG 325 mg PO BID 10/04/15 02/20/19 Elemental)] Ipratropium-Albuterol Nebulize 3 ml INHALATION RT-QID PRN 10/29/16 02/20/19 [Duoneb 0.5 mg-3 mg/3 ml Soln] Pantoprazole [Protonix] 40 mg PO DAILY 10/29/16 02/20/19 Lisinopril [Zestril] 2.5 mg PO DAILY 02/13/17 02/20/19 Spironolactone [Aldactone] 25 mg PO DAILY 02/13/17 02/20/19 Docusate [Colace] 100 mg PO HS 12/13/17 02/20/19 Folic Acid 0.8 mg PO DAILY 12/13/17 02/20/19 Metoprolol Tartrate [Lopressor] 25 mg PO BID 12/13/17 02/20/19 Procrit(Unknown Dose) 1 dose IJ Q21D PRN 12/13/17 02/20/19 Albuterol Inhaler [Ventolin Hfa 1 - 2 puff INHALATION RT-Q6H PRN 02/16/19 02/20/19 Inhaler] Allopurinol [Zyloprim] 100 mg PO DAILY 02/16/19 02/20/19 Cyanocobalamin (Vitamin B-12) 1,000 mcg PO DAILY 02/16/19 02/20/19 [Vitamin B-12] L.acidoph,Paracasei, B.lactis 1 cap PO DAILY 02/16/19 02/20/19 [Probiotic] Cholecalciferol [Vitamin D3 (25 1,000 unit PO DAILY 02/20/19 02/20/19 Mcg = 1000 Iu)] Levothyroxine Sodium [Synthroid] 175 mcg PO DAILY 02/20/19 02/20/19 Previous Rx's Medication Instructions Recorded Atorvastatin [Lipitor] 40 mg PO HS tab 09/22/15 Clopidogrel [Plavix] 75 mg PO DAILY tab 09/22/15 Nitroglycerin Sl Tabs [Nitrostat] 0.4 mg SUBLINGUAL Q5M PRN #0 tab 09/22/15 Furosemide [Lasix] 40 mg PO BID@0900,1600 #60 tab 12/06/16 Allergies Allergy/AdvReac Type Severity Reaction Status Date / Time haloperidol [From Haldol] AdvReac Confusion Verified 02/20/19 20:59 Review of Systems ROS Statement: Those systems with pertinent positive or pertinent negative responses have been documented in the HPI. ROS Other: All systems not noted in ROS Statement are negative. Past Medical History Past Medical History: Heart Failure, COPD, Hypertension, Myocardial Infarction ([place]), Renal Disease, Thyroid Disorder, Hypertension, Myocardial Infarction ([place]), Thyroid Disorder Additional Past Medical History / Comment(s): anemia, coumadin toxicity, hypoxia, ASHD, pulmonary, beginnings of cataracts bilaterally, home O2 (2LNC- PRN), Last Myocardial Infarction Date:: 06/24/15 History of Any Multi-Drug Resistant Organisms: C-DIFF, MRSA Date of last positivie culture/infection: 2015 MDRO Source:: sacral wound Past Surgical History: Heart Catheterization With Stent, Orthopedic Surgery, Pacemaker Additional Past Surgical History / Comment(s): 1996 L shoulder rotator cuff surgery, colonoscopy with benign polypectomy.heart stent x1, sacral wound debridement with wound vac in 09/2015 Past Anesthesia/Blood Transfusion Reactions: No Reported Reaction Additional Past Anesthesia/Blood Transfusion Reaction / Comment(s): Pt has never received blood. Date of Last Stent Placement:: 06/2015 Type of Cardiac Device: Permanent Pacemaker Device Placement Date:: 11/25/2016 Additional Past Alcohol Use History / Comment(s): Pt states he quit smoking 06/24/15 He started smoking in 1968 and was a 1ppd smoker. - Past Family History Father Family Medical History: Cancer, Coronary Artery Disease (CAD), Myocardial Infarction ([place]) Additional Family Medical History / Comment(s): Father at age 86yrs. He had a CABG. Bladder cancer. Mother Family Medical History: Cancer Additional Family Medical History / Comment(s): Mother in her 30's of breast cancer. Course Vital Signs 02/20/19 02/20/19 02/20/19 20:00 20:20 20:30 Pulse Rate 76 76 76 Respiratory 18 16 Rate Blood Pressure 118/66 118/63 O2 Sat by Pulse 89 L 92 L Oximetry 02/20/19 02/20/19 20:33 21:00 Pulse Rate 78 Respiratory Rate Blood Pressure 108/61 O2 Sat by Pulse Oximetry Medical Decision Making - Lab Data Result diagrams: 02/20/19 20:05 02/20/19 20:05 Lab Results 02/20/19 02/20/19 02/20/19 Range/Units 20:05 20:05 20:05 WBC 13.2 H (3.8-10.6) k/uL RBC 3.35 L (4.30-5.90) m/uL Hgb 10.7 L (13.0-17.5) gm/dL Hct 34.8 L (39.0-53.0) % MCV 104.0 H (80.0-100.0) fL MCH 32.0 (25.0-35.0) pg MCHC 30.7 L (31.0-37.0) g/dL RDW 16.9 H (11.5-15.5) % Plt Count 344 (150-450) k/uL Neutrophils % 87 % Lymphocytes % 4 % Monocytes % 7 % Eosinophils % 1 % Basophils % 0 % Neutrophils # 11.5 H (1.3-7.7) k/uL Lymphocytes # 0.5 L (1.0-4.8) k/uL Monocytes # 0.9 (0-1.0) k/uL Eosinophils # 0.1 (0-0.7) k/uL Basophils # 0.0 (0-0.2) k/uL Hypochromasia Slight Anisocytosis Slight Macrocytosis Moderate PT (9.0-12.0) sec INR (<1.2) Sodium 130 L (137-145) mmol/L Potassium 5.6 H (3.5-5.1) mmol/L Chloride 93 L (98-107) mmol/L Carbon Dioxide 31 H (22-30) mmol/L Anion Gap 6 mmol/L BUN 53 H (9-20) mg/dL Creatinine 2.55 H (0.66-1.25) mg/dL Est GFR (CKD-EPI)AfAm 29 (>60 ml/min/1.73 sqM) Est GFR (CKD-EPI)NonAf 25 (>60 ml/min/1.73 sqM) Glucose 98 (74-99) mg/dL Plasma Lactic Acid David 0.9 (0.7-2.0) mmol/L Calcium 8.9 (8.4-10.2) mg/dL Magnesium 1.7 (1.6-2.3) mg/dL Troponin I (0.000-0.034) ng/mL NT-Pro-B Natriuret Pep pg/mL 02/20/19 02/20/19 02/20/19 Range/Units 20:05 20:05 20:05 WBC (3.8-10.6) k/uL RBC (4.30-5.90) m/uL Hgb (13.0-17.5) gm/dL Hct (39.0-53.0) % MCV (80.0-100.0) fL MCH (25.0-35.0) pg MCHC (31.0-37.0) g/dL RDW (11.5-15.5) % Plt Count (150-450) k/uL Neutrophils % % Lymphocytes % % Monocytes % % Eosinophils % % Basophils % % Neutrophils # (1.3-7.7) k/uL Lymphocytes # (1.0-4.8) k/uL Monocytes # (0-1.0) k/uL Eosinophils # (0-0.7) k/uL Basophils # (0-0.2) k/uL Hypochromasia Anisocytosis Macrocytosis PT 9.9 (9.0-12.0) sec INR 0.9 (<1.2) Sodium (137-145) mmol/L Potassium (3.5-5.1) mmol/L Chloride (98-107) mmol/L Carbon Dioxide (22-30) mmol/L Anion Gap mmol/L BUN (9-20) mg/dL Creatinine (0.66-1.25) mg/dL Est GFR (CKD-EPI)AfAm (>60 ml/min/1.73 sqM) Est GFR (CKD-EPI)NonAf (>60 ml/min/1.73 sqM) Glucose (74-99) mg/dL Plasma Lactic Acid David (0.7-2.0) mmol/L Calcium (8.4-10.2) mg/dL Magnesium (1.6-2.3) mg/dL Troponin I 0.025 (0.000-0.034) ng/mL NT-Pro-B Natriuret Pep 4180 pg/mL Disposition Clinical Impression: [facility] (acute kidney injury), Community acquired pneumonia Disposition: ADMITTED IP TO THIS HOSP Condition: Fair Referrals: Jovanni Finney MD [Primary Care Provider] - 1-2 days Decision Time: 21:14
[2019-02-20 20:24] LABS: Anisocytosis Slight; Basophils % (A) 0 %; Eosinophils # (A) 0.1 k/uL (0-0.7); Eosinophils % (A) 1 %; HCT 34.8 % (39.0-53.0); HGB 10.7 gm/dL (13.0-17.5); Hypochromasia Slight; Lymphocytes # (A) 0.5 k/uL (1.0-4.8); Lymphocytes % (A) 4 %; MCHC 30.7 g/dL (31.0-37.0); Macrocytosis Moderate; Mean Platelet Volume 7.4; Monocytes # (A) 0.9 k/uL (0-1.0); Monocytes % (A) 7 %; Neutrophils # (A) 11.5 k/uL (1.3-7.7); Neutrophils % (A) 87 %; Platelet Count 344 k/uL (150-450); RBC 3.35 m/uL (4.30-5.90); RDW 16.9 % (11.5-15.5); WBC 13.2 k/uL (3.8-10.6)
[2019-02-20 20:33] LABS: Calcium 8.9 mg/dL (8.4-10.2)
[2019-02-20 20:37] LABS: INR 0.9 (<1.2); Prothrombin Time 9.9 sec (9.0-12.0)
[2019-02-20 20:42] LABS: Potassium 5.6 mmol/L (3.5-5.1)
[2019-02-20 20:43] LABS: Magnesium 1.7 mg/dL (1.6-2.3)
[2019-02-20] MEDS ORDERED: SODIUM CHLORIDE 0.9% 500 ML IV STA (20:48)
--- NOTE | 2019-02-20 21:10 | XR ---
EXAMINATION TYPE: XR chest 2V DATE OF EXAM: 02/20/2019 COMPARISON: 12/14/2017 HISTORY: 68-year-old male with pain TECHNIQUE: AP and lateral views FINDINGS: Left anterior chest wall AICD generator with right atrial and right ventricular leads. Heart is unenl arged with stable diffuse interstitial prominence. Posterior left basilar opacities present with poss ible trace effusion. Suture anchor at the left humeral head from prior cuff repair. IMPRESSION: Posterior left basilar opacity, possible pneumonia. Follow-up after treatment to reassess.
[2019-02-20] MEDS ORDERED: AZITHROMYCIN 500 MG in SODIUM CHLORIDE 0.9% 250 ML IVPB STA (21:14)
[2019-02-20] MEDS ORDERED: NALOXONE 0.4 MG/ML 1 ML VIAL IV PRN (21:14)
[2019-02-20] MEDS ORDERED: ONDANSETRON 4 MG/2 ML VIAL IVP PRN (21:14)
[2019-02-20 21:24] LABS: VBG PH 7.27 (7.31-7.41)
[2019-02-20] MEDS ORDERED: NITROGLYCERIN SL TABS 0.4 MG TAB SUBLINGUAL PRN (21:29)
[2019-02-20] MEDS ORDERED: IPRATROPIUM-ALBUTEROL 3 ML NEB INHALATION PRN (21:31)
[2019-02-20] MEDS: IPRATROPIUM-ALBUTEROL 3 ML NEB INHALATION PRN (21:37)
[2019-02-20] MEDS: SODIUM CHLORIDE 0.9% 1,000 ML IV SCH (22:10)
[2019-02-20 22:14] LABS: Appearance,Urine Clear (Clear); Bilirubin,Urine Negative (Negative); Blood,Urine Negative (Negative); Color,Urine Yellow; Glucose,Urine (UA) Negative (Negative); Ketones,Urine Negative (Negative); Leukocyte Esterase,Urine Negative (Negative); Nitrite,Urine Negative (Negative); Protein,Urine Negative (Negative); Specific Gravity,Urine 1.011 (1.001-1.035); Urobilinogen,Urine <2.0 mg/dL (<2.0)
[2019-02-20] MEDS: ACETAMINOPHEN TAB 325 MG TAB PO PRN (23:03)
[2019-02-20 23:41] VITALS: BMI 51.4
--- NOTE | 2019-02-20 23:56 | HP ---
HISTORY AND PHYSICAL DATE OF SERVICE: 02/20/2019 at 10:07 pm. The patient seen in the ER module #1. DATA: He is a 5 foot 6 inches height, weight is 65.31 kg and BSA 1.74 m2, BMI 23.2 kg/m2. ALLERGY TO HALDOL. The patient brought by arrival to the emergency room by EMS. CHIEF COMPLAINT: The patient had yesterday hernia repair by Dr. Jack. He was doing very good and fine and no without any abnormalities. This morning, he could not wake up. He was groggy and she tried to give him liquids or drinks and he was completely sleepy and drowsy and continued to be that way. Subsequently, she called the ambulance and brought him to the emergency room. In the emergency room, the patient had laboratories and seen by Dr. Velasquez, ER physician and staff and he found that the patient had leukocytosis with white count 13.2 with the hyperkalemia with potassium 5.6 and his creatinine was 2.55 with acute kidney injury. His magnesium was normal and his troponin was normal at 0.025. Found also that his oxygen 92 on the low side, and they did a chest x-ray and a chest x-ray. I was suspicious of left basilar opacity with the probability of pneumonia with the associated short of breath, but he is also on oxygen 2 L for chronic respiratory failure. We do not have any urinalysis done. HISTORY OF PRESENT ILLNESS: The patient has been doing well recently and he is maintained on oxygen therapy. He was seeing Dr. Mcdowell the Cardiology, Dr. Hou, the Pulmonary. On February 05, 2019 his creatinine baseline 1.6 with the average estimated glomerular filtration rate of non- was around the 40's. Currently his creatinine is 2.55 and his estimated glomerular filtration rate has been dropped to the 25. He had hypercarbia as well with the ABG done today and metabolic acidosis, 7.27 and his carbon dioxide was 31, indicating this hypercarbia, respiratory in origin. In the ER, they consulted Dr. Hou and Dr. Mcdowell. Dr. Hou is a Pulmonary, Dr. Mcdowell is the Cardiology as well as Dr. Anaya the street car mechanic and with the underlying acute kidney injury as well. PAST MEDICAL HISTORY: This patient has multiple medical problems with the chief underlying history of recent inguinal hernia repair. However, I do not thing that has any contribution to the current admission. The patient had decreased his oral intake with the possibility of dehydration and he was on Lasix twice a day 40 mg and as well has been seen in the past by Dr. rAic Pollard and he is Hematology/Oncology because of the macrocytosis and he has been as well as anemia and he was treated with injection every 3 weeks. He had underlying history of cardiomyopathy. He has impaired ejection fraction. He has history of anemia and history of chronic obstructive lung disease with strong history of smoking, history of hyperkalemia and hyperlipidemia and hypothyroidism and history of nicotine dependence, but he has quit smoking. He has a history of pulmonary hypertension and history of NC in the past and history of non ST elevation NC. He has history of coronary artery disease and history of chronic total occlusion of coronary artery. He had pulmonary hypertension as well and right bundle branch block and atrial fibrillation. He had history in the past in 12/13/2017 with the cardiogenic shock September 04, 2015 and he had history of acute kidney failure and that was December 13, 2017. He had a past history of iron deficiency anemia. History of enterocolitis due to C difficile. Unspecified atrial fibrillation is present, which is not present at this time and he is on Plavix. He had history of hypertensive chronic kidney disease, atherosclerosis as mentioned, old myocardial infarction and ischemic cardiomyopathy. ALLERGIES: ON THE ALLERGY ONLY HALDOL. SOCIAL HISTORY: The patient is , have daughter and son. Smoking habit: Ex smoker. No alcohol intake. FAMILY HISTORY: Cancer, coronary artery disease, [place]. Father at age of 86 and he had at that time CABG and bladder cancer. Mother in her 30s with breast cancer. He had permanent pacemaker and he quit smoking in 06/22/2015 and he was starting his smoking habit in 1968, was 1 pack per day. MEDICATIONS: His medication at home: 1. Amiodarone 100 mg daily. 2. Aspirin 81 mg daily. 3. Budesonide 160/4.5 mg inhaler 2 puffs twice a day. 4. Ferrous Sulfate 65 mg twice a day. 5. Ipratropium albuterol nebulizer DuoNeb 0.5 mg-3 mg/per 3 mL solution and he uses inhalation therapy 4 times a day. 6. He is on pantoprazole 40 mg once daily before breakfast. 7. Lisinopril 2.5 mg daily. However, we had to held and stop because of the hyperkalemia. 8. He is also on spironolactone 25 mg daily and we will be holding it as well for the hyperkalemia. 9. He is on docusate sodium 6.8 mg daily. 10.Metoprolol tartrate 25 mg twice a day. 11.Procrit [address] Aric Pollard, Hematology Oncology. 12.He is on inhaler rescue inhaler albuterol 1-2 puff every 6 hour p.r.n. 13.He is also on allopurinol 100 mg IV daily for hyperuricemia and gouty arthritis. 14.He is on vitamin B12 tablet p.o. 1000 mcg daily. 15.He also on probiotic 1 capsule daily. 16.Vitamin D3 1000 international unit daily. 17.Synthroid 175 mcg daily. 18.He is also on Plavix 75 mg daily. 19.Furosemide 40 mg twice a day. 20.Nitroglycerin sublingual 0.4 mg p.r.n. 21.Atorvastatin 40 mg. REVIEW OF SYSTEM: The patient is sleepy and unable to give detailed history and or the question to answer and his at bedside and she did answer for him and stated that mainly the story depend on his waking up groggy and feeling short of breath as well as went to the bathroom and came back to bed to sleep and not feeling well. NEURO PSYCHIATRY: Negative. CARDIOVASCULAR: No chest pain or palpitation. RESPIRATORY: No cough or expectoration. GI no diarrhea or constipation or abdominal pain. no dysuria or hematuria. MUSCULOSKELETAL: Very weak and very tired. ENDOCRINE: No problem at the time. He did not have any swelling of his legs. The rest of the review of systems was noncontributory. PHYSICAL EXAMINATION: On the current exam on admission, the patient's vital signs: Indicating heart rate of 76 per minute, regular, and respiratory rate 18 and blood pressure was 118/66 with the oxygen was 89 on room air and subsequently his blood pressure went down to 108. LABORATORY: In the ER indicating white count 13.2, his anemia with hemoglobin 10.7 and the MCV 104.0 with macrocytosis. His platelet count 344. He had still slight hypochromasia and and cytosis. They did check his magnesium was 1.7, calcium 8.9. His lactic acid was 0.9, and glucose was 98. However, he has sodium 130, with the hyponatremia and the potassium 5.6 with the hyperkalemia. His BUN was 53 and creatinine was 2.55 with the underlying acute kidney injury. Probably associated with the dehydration and Lasix which has been discontinued. PHYSICAL EXAMINATION: Patient is conscious, alert, but drowsy and sleepy. His pupils equal, reactive. Conjunctivae was pink. Sclerae was nonicteric. The oropharynx he had upper plate dentures and lower partial. Uvula midline. No facial asymmetry. He has normal hearing and neck was supple. No JVD and no thyromegaly. No lymphadenopathy. Trachea midline. The chest was increased anteroposterior diameter with the left lower base dullness and decreased air entry. Abdomen is soft, positive bowel sounds and no tenderness in the 4 quadrants. The heart is PMI in the 5th intercostal space outside midclavicular line. Regular sinus rhythm. However, no gallop appreciated. His proBNP was 4180 and with the underlying troponin 10.025. EXTREMITIES: No edema and positive pulses bilateral and symmetrical. Neurological exam: No lateralizing signs for evidence of any neurological deficit at this time, except being drowsy, sleepy. IMPRESSION: 1. Acute kidney injury. 2. Underlying left lower lung initial acquired pneumonia. 3. Underlying abnormalities associated with acute kidney injury with the hyponatremia as mentioned and hyperkalemia and elevated troponin, however, that could be chronic. 4. He has also underlying chronic obstructive pulmonary disease with hypoxemia with chronic respiratory failure with acute on the top of chronic with the presence of ABG acidemia and associated with elevated carbon dioxide with the normal CO2. Respiratory alkalosis was considered. Patient will be admitted to the hospital inpatient with more than 2 nights and several consultations were obtained through the ER already including respiratory, Dr. Hou, cardiology Dr. Mcdowell and Nephrology, Dr. Caicedo with the underlying also leukocytosis and anemia with the macrocytic hypochromic anemia as well. PLAN AND TREATMENT.: We did stop lisinopril and stop any association with the kidney and hyperkalemia as well to be stop the lisinopril was held as well gentle hydration and will see tomorrow what other recommendation from the above consulting physicians and the possibility of cardiorenal syndrome is still highly considered. MMODL / IJN: [id number] /
[2019-02-21] MEDS: LEVOTHYROXINE 75 MCG TAB PO SCH (06:43)
[2019-02-21] MEDS: PANTOPRAZOLE 40 MG TABLET PO SCH (06:43)
[2019-02-21 07:03] LABS: Basophils % (A) 0 %; Eosinophils % (A) 0 %; HCT 32.3 % (39.0-53.0); HGB 9.8 gm/dL (13.0-17.5); Hypochromasia Moderate; Lymphocytes # (A) 0.2 k/uL (1.0-4.8); Lymphocytes % (A) 2 %; MCH 31.8 pg (25.0-35.0); MCHC 30.3 g/dL (31.0-37.0); MCV 104.8 fL (80.0-100.0); Macrocytosis Moderate; Mean Platelet Volume 6.8; Monocytes # (A) 0.3 k/uL (0-1.0); Monocytes % (A) 2 %; Neutrophils # (A) 12.6 k/uL (1.3-7.7); Neutrophils % (A) 96 %; Platelet Count 338 k/uL (150-450); RBC 3.09 m/uL (4.30-5.90); RDW 15.5 % (11.5-15.5); WBC 13.1 k/uL (3.8-10.6)
[2019-02-21 07:11] LABS: Calcium 8.8 mg/dL (8.4-10.2); Magnesium 1.8 mg/dL (1.6-2.3); Potassium 5.6 mmol/L (3.5-5.1)
[2019-02-21] MEDS: IPRATROPIUM-ALBUTEROL 3 ML NEB INHALATION PRN ×2 (08:02→20:59)
[2019-02-21] MEDS: SYMBICORT 160-4.5 MCG INHALER INHALATION SCH ×2 (08:15→20:59)
[2019-02-21] MEDS: LIPASE 5,000/PROTEASE 17,000/AMYLASE 24,000 PO SCH (08:51)
[2019-02-21] MEDS: AMIODARONE 100 MG TAB PO SCH (08:51)
[2019-02-21] MEDS: METOPROLOL TARTRATE 25 MG TAB PO SCH ×2 (08:52→22:48)
[2019-02-21] MEDS: ASPIRIN 81 MG PO SCH (08:52)
[2019-02-21] MEDS: MULTIVITAMINS, THERA 1 EACH TAB PO SCH (08:52)
[2019-02-21] MEDS: CYANOCOBALAMIN 500 MCG TAB PO SCH (08:52)
[2019-02-21] MEDS: LEVOTHYROXINE 100 MCG TAB PO SCH (08:52)
[2019-02-21] MEDS: FERROUS SULFATE 325 MG TAB PO SCH ×2 (08:52→22:50)
[2019-02-21] MEDS: CLOPIDOGREL 75 MG TAB PO SCH (08:52)
[2019-02-21] MEDS: FOLIC ACID 1 MG TAB PO SCH (08:53)
[2019-02-21] MEDS: CHOLECALCIFEROL 1,000 UNIT TAB PO SCH (08:54)
[2019-02-21] MEDS ORDERED: PANTOPRAZOLE 40 MG TABLET PO SCH (09:00)
[2019-02-21] MEDS ORDERED: PIPERACILLIN-TAZOBACTAM 3.375 GM in SODIUM CHLORIDE 0.9% 100 ML IVPB SCH (09:30)
[2019-02-21] MEDS: PIPERACILLIN-TAZOBACTAM 3.375 GM in SODIUM CHLORIDE 0.9% 100 ML IVPB SCH ×2 (10:38→22:49)
[2019-02-21] MEDS: ACETAMINOPHEN TAB 325 MG TAB PO PRN ×2 (10:39→22:54)
--- NOTE | 2019-02-21 11:13 | P.CNPUL ---
History of Present Illness Consult date: 02/21/19 Reason for consult: dyspnea, pneumonia History of present illness: This patient is 68 and the patient underwent a right inguinal hernia surgery by Dr. tavares. Surgery was done without a complication on outpatient basis and the patient was discharged home. The patient presented within 48 hours of discharge complaining of generalized weakness. He was feeling extremely weak. He had a congested cough. He was also getting short of breath. No nausea. No vomiting. No pleurisy. No hemoptysis. No chest pain. In the ED the patient was found to have increased dyspnea wheezing he was given breathing treatments. The patient had a chest x-ray that showed a left lower lobe consolidation/pneumonia for that reason the patient was hospitalized. Noted his kidney function was also off and the patient's potassium level was at 5.6 with a creatinine of 2.55. The patient had a mild leukocytosis with a white cell count of 13.2. The BNP level was 4000. The patient was given a dose of Rocephin and Zithromax and was admitted to the hospital. He is also receiving gentle hydration with normal state rate of 60 mL an hour. Renal function is improving. EKG showing sinus rhythm with a first-degree AV block. Terms of his cardiac history, the patient is known to have severe cardiomyopathy with systolic heart failure. His ejection fraction estimated to be around 30- 35%. He has chronic systolic heart failure. He also has history of sick sinus syndrome and he has chronotropic incompetence and he has a AV node disease and he has also tendency to become hypokalemic as a result of Aldactone. He has a dual-chamber AICD implantation that was done 2 years ago. He has also had coronary artery disease with previous coronary intervention and stenting. He has paroxysmal atrial fibrillation. He has also chronic kidney disease. Review of Systems Constitutional: Reports fatigue, Reports poor appetite, Reports weakness Eyes: denies as per HPI, denies blurred vision, denies bulging eye, denies decreased vision, denies diplopia, denies discharge, denies dry eye, denies irr itation, denies itching, denies pain, denies photophobia, denies loss of peripheral vision, denies loss of vision, denies tunnel vision/blind spots Ears: deny: decreased hearing, ear discharge, earache, tinnitus Ears, nose, mouth and throat: Denies headache, Denies sore throat Cardiovascular: Reports decreased exercise tolerance, Reports dyspnea on exertion, Reports shortness of breath Respiratory: Reports cough, Reports cough with sputum, Reports dyspnea Gastrointestinal: Reports as per HPI (Patient underwent a right inguinal hernia repair), Denies abdominal pain, Denies diarrhea, Denies nausea, Denies vomiting Genitourinary: Reports as per HPI Musculoskeletal: Reports as per HPI Musculoskeletal: absent: ankle pain, ankle stiffness, ankle swelling Integumentary: Reports as per HPI, Reports wounds (Right coronary which is clean) Neurological: Reports as per HPI, Reports weakness Psychiatric: Reports as per HPI Endocrine: Reports as per HPI, Reports fatigue Hematologic/Lymphatic: Reports as per HPI Allergic/Immunologic: Reports as per HPI Past Medical History Past Medical History: Heart Failure, COPD, Hypertension, Myocardial Infarction ([place]), Renal Disease, Thyroid Disorder, Hypertension, Myocardial Infarction ([place]), Thyroid Disorder Additional Past Medical History / Comment(s): Coronary artery disease, history of severe ischemic cardiomyopathy with systolic heart failure and ejection fraction of 30-35%, history of proximal atrial fibrillation, sick sinus syndrom e, history of coronary artery disease,, hypertension, previous [place], hypothyroidism, cataracts, chronic anemia, chronic kidney disease Last Myocardial Infarction Date:: 06/24/15 History of Any Multi-Drug Resistant Organisms: C-DIFF, MRSA Date of last positivie culture/infection: 2015 MDRO Source:: sacral wound Past Surgical History: Heart Catheterization With Stent, Orthopedic Surgery, Pacemaker Additional Past Surgical History / Comment(s): 1996 L shoulder rotator cuff surgery, colonoscopy with benign polypectomy.heart stent x1, sacral wound ching ridement with wound vac in 09/2015 Past Anesthesia/Blood Transfusion Reactions: No Reported Reaction Additional Past Anesthesia/Blood Transfusion Reaction / Comment(s): Pt has never received blood. Date of Last Stent Placement:: 06/2015 Type of Cardiac Device: Permanent Pacemaker Device Placement Date:: 11/25/2016 Past Psychological History: No Psychological Hx Reported Additional Psychological History / Comment(s): . Smoking Status: Former smoker Past Alcohol Use History: None Reported Additional Past Alcohol Use History / Comment(s): Pt states he quit smoking 06/24/15 He started smoking in 1968 and was a 1ppd smoker. Past Drug Use History: None Reported - Past Family History Father Family Medical History: Cancer, Coronary Artery Disease (CAD), Myocardial I nfarction ([place]) Additional Family Medical History / Comment(s): Father at age 86yrs. He had a CABG. Bladder cancer. Mother Family Medical History: Cancer Additional Family Medical History / Comment(s): Mother in her 30's of breast cancer. Medications and Allergies Home Medications Medication Instructions Recorded Confirmed Type Multivitamins, Thera [Multivitamin 1 tab PO DAILY 06/24/15 02/20/19 History (formulary)] Amiodarone [Cordarone] 100 mg PO DAILY 09/04/15 02/20/19 History Aspirin 81 mg PO DAILY 09/04/15 02/20/19 History Atorvastatin [Lipitor] 40 mg PO HS tab 09/22/15 02/20/19 Rx Clopidogrel [Plavix] 75 mg PO DAILY tab 09/22/15 02/20/19 Rx Nitroglycerin Sl Tabs [Nitrostat] 0.4 mg SUBLINGUAL Q5M PRN #0 tab 09/22/15 02/20/19 Rx Budesonide/Formoterol Fumarate 2 puff INHALATION RT-BID 09/29/15 02/20/19 History [Symbicort 160-4.5 Mcg Inhaler] Ferrous Sulfate [Iron (65 MG 325 mg PO BID 10/04/15 02/20/19 History Elemental)] Ipratropium-Albuterol Nebulize 3 ml INHALATION RT-QID PRN 10/29/16 02/20/19 History [Duoneb 0.5 mg-3 mg/3 ml Soln] Pantoprazole [Protonix] 40 mg PO DAILY 10/29/16 02/20/19 History Furosemide [Lasix] 40 mg PO BID@0900,1600 #60 tab 12/06/16 02/20/19 Rx Lisinopril [Zestril] 2.5 mg PO DAILY 02/13/17 02/20/19 History Spironolactone [Aldactone] 25 mg PO DAILY 02/13/17 02/20/19 History Docusate [Colace] 100 mg PO HS 12/13/17 02/20/19 History Folic Acid 0.8 mg PO DAILY 12/13/17 02/20/19 History Metoprolol Tartrate [Lopressor] 25 mg PO BID 12/13/17 02/20/19 History Procrit(Unknown Dose) 1 dose IJ Q21D PRN 12/13/17 02/20/19 History Albuterol Inhaler [Ventolin Hfa 1 - 2 puff INHALATION RT-Q6H PRN 02/16/19 02/20/19 History Inhaler] Allopurinol [Zyloprim] 100 mg PO DAILY 02/16/19 02/20/19 History Cyanocobalamin (Vitamin B-12) 1,000 mcg PO DAILY 02/16/19 02/20/19 History [Vitamin B-12] L.acidoph,Paracasei, B.lactis 1 cap PO DAILY 02/16/19 02/20/19 History [Probiotic] Cholecalciferol [Vitamin D3 (25 1,000 unit PO DAILY 02/20/19 02/20/19 History Mcg = 1000 Iu)] Levothyroxine Sodium [Synthroid] 175 mcg PO DAILY 02/20/19 02/20/19 History Allergies Allergy/AdvReac Type Severity Reaction Status Date / Time haloperidol [From Haldol] AdvReac Confusion Verified 02/20/19 20:59 Physical Exam Vitals: Vital Signs Temp Pulse Pulse Resp BP BP Pulse Ox 02/21/19 11:01 81 18 02/21/19 10:57 98.4 F 81 18 106/60 94 L 02/21/19 08:52 98.1 F 97 18 111/63 95 02/21/19 08:20 84 02/21/19 08:02 88 02/21/19 04:00 98.2 F 90 16 100/56 93 L 02/21/19 00:00 97.8 F 86 16 102/59 92 L 02/20/19 22:00 98.8 F 85 15 104/59 88 L 02/20/19 21:48 85 02/20/19 21:47 98.1 F 84 16 115/58 89 L 02/20/19 21:38 81 02/20/19 21:30 88 12 110/63 84 L 02/20/19 21:00 108/61 02/20/19 20:33 78 02/20/19 20:30 76 16 118/63 92 L 02/20/19 20:20 76 02/20/19 20:00 76 18 118/66 89 L Intake and Output 02/20/19 02/21/19 02/21/19 22:59 06:59 14:59 Intake Total 0 Output Total 500 200 400 Balance -500 -200 -400 Intake: Oral 0 Output: Urine 500 200 400 Other: Voiding Method Urinal Urinal # Voids 1 Weight 65.317 kg 64.1 kg Gen. appearance, comfortable likely distress Head exam was generally normal. There was no scleral icterus or corneal arcus. Mucous membranes were moist. Neck was supple and without jugular venous distension, thyromegaly, or carotid bruits. Carotids were easily palpable bilaterally. There was no adenopathy. Lungs sounds are diminished and correct in the left lung base along with some egophony Cardiac exam revealed the PMI to be normally situated and sized. The rhythm was regular and no extrasystoles were noted during several minutes of auscultation. The first and second heart sounds were normal and physiologic splitting of the second heart sound was noted. There were no murmurs, rubs, clicks, or gallops. Pacemaker pocket is over the left anterior chest area Abdominal exam revealed normal bowel sounds. The abdomen was soft, non-tender, and without masses, organomegaly, or appreciable enlargement of the abdominal aorta. Right inguinal hernia wound is dry clean and intact at this point in time. No pain. No swelling. No drainage. Examination of the extremities revealed easily palpable radial, femoral and pedal pulses. There was no cyanosis, clubbing or edema. Examination of the skin revealed no evidence of significant rashes, suspicious appearing nevi or other concerning lesions. Neurologically is awake and alert and there is no focal neurological deficits. Results - Laboratory Findings CBC and BMP: 02/21/19 06:15 02/21/19 06:15 PT/INR, D-dimer PT 9.9 sec (9.0-12.0) 02/20/19 20:05 INR 0.9 (<1.2) 02/20/19 20:05 Abnormal lab findings: Abnormal Labs 02/20/19 02/20/19 02/20/19 20:05 20:05 20:55 WBC 13.2 H RBC 3.35 L Hgb 10.7 L Hct 34.8 L MCV 104.0 H MCHC 30.7 L RDW 16.9 H Neutrophils # 11.5 H Lymphocytes # 0.5 L VBG pH 7.27 L VBG pCO2 71 H* VBG HCO3 31 H Sodium 130 L Potassium 5.6 H Chloride 93 L Carbon Dioxide 31 H BUN 53 H Creatinine 2.55 H Glucose 02/21/19 02/21/19 06:15 06:15 WBC 13.1 H RBC 3.09 L Hgb 9.8 L Hct 32.3 L MCV 104.8 H MCHC 30.3 L RDW Neutrophils # 12.6 H Lymphocytes # 0.2 L VBG pH VBG pCO2 VBG HCO3 Sodium 132 L Potassium 5.6 H Chloride 96 L Carbon Dioxide BUN 49 H Creatinine 2.04 H Glucose 135 H - Diagnostic Findings Chest x-ray: image reviewed Assessment and Plan Plan: 1 left lower lobe pneumonia, consider aspiration perioperatively. 2 increased dyspnea and cough and generalized weakness secondary to above, along with a mild leukocytosis 3 right inguinal hernia repair and the patient is postop day #2 4 acute on chronic kidney disease and creatinine is improving is down to 2.04 on today's evaluation with gentle hydration 5 coronary artery disease 6 ischemic cardiomyopathy with an ejection fraction of 30-35%, the patient has a biventricular AICD in place 7 history of proximal atrial fibrillation current rhythm is sinus 8 sick sinus syndrome 9 hypothyroidism 10 chronic anemia 11 hypertension plan Put the patient IV Zosyn. Obtain sputum Gram stain and culture. Continue DuoNeb nebulized treatments around the clock. It itches a little next 24 hours. Gentle hydration with IV fluids. Monitor renal function. Monitor potassium level as the patient has tendency for acute hyperkalemia. Outpatient cardiac medication will resume. We'll continue to follow. Surgical site over the right groin area dry clean and intact.
--- NOTE | 2019-02-21 12:26 | P.CRDCN ---
History of Present Illness Consult date: 02/21/19 History of present illness: This is a 68-year-old gentleman with history of ischemic heart disease, cardiomyopathy, AICD implantation and also previous stent placement for inoperable coronary artery disease who underwent hernia surgery by Dr. Boston. Patient was sent home in a stable condition on last Friday. Patient apparently did well on Friday. However, on started a patient became lethargic and less response to are not eating well. He was also getting short of breath. In the emergency room patient was found to be dyspneic with wheezing. Chest x-ray showed left lower lobe consolidation or pneumonia. Patient is admitted to the hospital. His BNP was 4000. Patient has been on antibiotics. Patient. The creatinine is also went up suggestive of possible prerenal azotemia. Patient was given gentle hydration. Patient is feeling much better today. Denies any chest pain or shortness of breath. His lungs show rales at the left lower lobe. Doesn't appear to be in acute congestive heart failure. No complaints of chest pain. We'll continue current medical therapy. We'll watch for any with volume overload. Further recommendation will depend upon the clinical course. Unix Developer also is following the patient Review of Systems As per the chart Past Medical History Past Medical History: Heart Failure, COPD, Hypertension, Myocardial Infarction (NM), Renal Disease, Thyroid Disorder, Hypertension, Myocardial Infarction (NM), Thyroid Disorder Additional Past Medical History / Comment(s): Coronary artery disease, history of severe ischemic cardiomyopathy with systolic heart failure and ejection fraction of 30-35%, history of proximal atrial fibrillation, sick sinus syndrome, history of coronary artery disease,, hypertension, previous NM, hypothyroidism, cataracts, chronic anemia, chronic kidney disease Last Myocardial Infarction Date:: 06/24/15 History of Any Multi-Drug Resistant Organisms: C-DIFF, MRSA Date of last positivie culture/infection: 2015 MDRO Source:: sacral wound Past Surgical History: Heart Catheterization With Stent, Orthopedic Surgery, Pacemaker Additional Past Surgical History / Comment(s): 1996 L shoulder rotator cuff surgery, colonoscopy with benign polypectomy.heart stent x1, sacral wound debridement with wound vac in 09/2015 Past Anesthesia/Blood Transfusion Reactions: No Reported Reaction Additional Past Anesthesia/Blood Transfusion Reaction / Comment(s): Pt has never received blood. Date of Last Stent Placement:: 06/2015 Type of Cardiac Device: Permanent Pacemaker Device Placement Date:: 11/25/2016 Past Psychological History: No Psychological Hx Reported Additional Psychological History / Comment(s): . Smoking Status: Former smoker Past Alcohol Use History: None Reported Additional Past Alcohol Use History / Comment(s): Pt states he quit smoking 06/24/15 He started smoking in 1968 and was a 1ppd smoker. Past Drug Use History: None Reported - Past Family History Father Family Medical History: Cancer, Coronary Artery Disease (CAD), Myocardial Infarction (NM) Additional Family Medical History / Comment(s): Father at age 86yrs. He had a CABG. Bladder cancer. Mother Family Medical History: Cancer Additional Family Medical History / Comment(s): Mother in her 30's of breast cancer. Medications and Allergies Home Medications Medication Instructions Recorded Confirmed Type Multivitamins, Thera [Multivitamin 1 tab PO DAILY 06/24/15 02/20/19 History (formulary)] Amiodarone [Cordarone] 100 mg PO DAILY 09/04/15 02/20/19 History Aspirin 81 mg PO DAILY 09/04/15 02/20/19 History Atorvastatin [Lipitor] 40 mg PO HS tab 09/22/15 02/20/19 Rx Clopidogrel [Plavix] 75 mg PO DAILY tab 09/22/15 02/20/19 Rx Nitroglycerin Sl Tabs [Nitrostat] 0.4 mg SUBLINGUAL Q5M PRN #0 tab 09/22/15 02/20/19 Rx Budesonide/Formoterol Fumarate 2 puff INHALATION RT-BID 09/29/15 02/20/19 History [Symbicort 160-4.5 Mcg Inhaler] Ferrous Sulfate [Iron (65 MG 325 mg PO BID 10/04/15 02/20/19 History Elemental)] Ipratropium-Albuterol Nebulize 3 ml INHALATION RT-QID PRN 10/29/16 02/20/19 History [Duoneb 0.5 mg-3 mg/3 ml Soln] Pantoprazole [Protonix] 40 mg PO DAILY 10/29/16 02/20/19 History Furosemide [Lasix] 40 mg PO BID@0900,1600 #60 tab 12/06/16 02/20/19 Rx Lisinopril [Zestril] 2.5 mg PO DAILY 02/13/17 02/20/19 History Spironolactone [Aldactone] 25 mg PO DAILY 02/13/17 02/20/19 History Docusate [Colace] 100 mg PO HS 12/13/17 02/20/19 History Folic Acid 0.8 mg PO DAILY 12/13/17 02/20/19 History Metoprolol Tartrate [Lopressor] 25 mg PO BID 12/13/17 02/20/19 History Procrit(Unknown Dose) 1 dose IJ Q21D PRN 12/13/17 02/20/19 History Albuterol Inhaler [Ventolin Hfa 1 - 2 puff INHALATION RT-Q6H PRN 02/16/19 02/20/19 History Inhaler] Allopurinol [Zyloprim] 100 mg PO DAILY 02/16/19 02/20/19 History Cyanocobalamin (Vitamin B-12) 1,000 mcg PO DAILY 02/16/19 02/20/19 History [Vitamin B-12] L.acidoph,Paracasei, B.lactis 1 cap PO DAILY 02/16/19 02/20/19 History [Probiotic] Cholecalciferol [Vitamin D3 (25 1,000 unit PO DAILY 02/20/19 02/20/19 History Mcg = 1000 Iu)] Levothyroxine Sodium [Synthroid] 175 mcg PO DAILY 02/20/19 02/20/19 History Allergies Allergy/AdvReac Type Severity Reaction Status Date / Time haloperidol [From Haldol] AdvReac Confusion Verified 02/20/19 20:59 Physical Exam Vitals: Vital Signs Temp Pulse Pulse Resp BP BP Pulse Ox 02/21/19 11:01 81 18 02/21/19 10:57 98.4 F 81 18 106/60 94 L 02/21/19 08:52 98.1 F 97 18 111/63 95 02/21/19 08:20 84 02/21/19 08:02 88 02/21/19 04:00 98.2 F 90 16 100/56 93 L 02/21/19 00:00 97.8 F 86 16 102/59 92 L 02/20/19 22:00 98.8 F 85 15 104/59 88 L 02/20/19 21:48 85 02/20/19 21:47 98.1 F 84 16 115/58 89 L 02/20/19 21:38 81 06/15/19 21:30 88 12 110/63 84 L 02/20/19 21:00 108/61 02/20/19 20:33 78 02/20/19 20:30 76 16 118/63 92 L 02/20/19 20:20 76 02/20/19 20:00 76 18 118/66 89 L Intake and Output 02/20/19 02/21/19 02/21/19 22:59 06:59 14:59 Intake Total 0 Output Total 500 200 525 Balance -500 -200 -525 Intake: Oral 0 Output: Urine 500 200 525 Other: Voiding Method Urinal Urinal # Voids 1 Weight 65.317 kg 64.1 kg GENERAL EXAM: Patient is alert and oriented and doesn't appear to be in any acute distress HEENT: Normocephalic. Normal reaction of pupils, equal size, normal range of extraocular motion. No erythema or exudates in the throat. NECK: No masses, no nuchal rigidity. CHEST: No chest wall deformity. LUNGS: Rales at the right base HEART: S1 and S2 normal with no audible mumurs or gallops. Regular rhythm, femorals equal on both sides.. ABDOMEN: No hepatosplenomegaly, normal bowel sounds, no guarding or rigidity. SKIN: No rashes CENTRAL NERVOUS SYSTEM: No focal deficits. EXTREMITIES: No cyanosis, clubbing or edema. Results 02/21/19 06:15 02/21/19 06:15 Cardiac Enzymes 02/20/19 Range/Units 20:05 Troponin I 0.025 (0.000-0.034) ng/mL Coagulation 02/20/19 Range/Units 20:05 PT 9.9 (9.0-12.0) sec CBC 02/20/19 02/21/19 Range/Units 20:05 06:15 WBC 13.2 H 13.1 H (3.8-10.6) k/uL RBC 3.35 L 3.09 L (4.30-5.90) m/uL Hgb 10.7 L 9.8 L (13.0-17.5) gm/dL Hct 34.8 L 32.3 L (39.0-53.0) % Plt Count 344 338 (150-450) k/uL Comprehensive Metabolic Panel 02/20/19 02/21/19 Range/Units 20:05 06:15 Sodium 130 L 132 L (137-145) mmol/L Potassium 5.6 H 5.6 H (3.5-5.1) mmol/L Chloride 93 L 96 L (98-107) mmol/L Carbon Dioxide 31 H 30 (22-30) mmol/L BUN 53 H 49 H (9-20) mg/dL Creatinine 2.55 H 2.04 H (0.66-1.25) mg/dL Glucose 98 135 H (74-99) mg/dL Calcium 8.9 8.8 (8.4-10.2) mg/dL Current Medications Generic Name Dose Route Start Last Admin Trade Name Freq PRN Reason Stop Dose Admin Acetaminophen 650 mg 02/20/19 21:14 02/21/19 10:39 Tylenol Tab PO 650 mg Q6HR PRN Administration Mild Pain or Fever > 100.5 Albuterol/Ipratropium 3 ml 02/20/19 21:17 02/21/19 08:02 Duoneb 0.5 Mg-3 Mg/3 Ml Soln INHALATION 3 ml RT-QID PRN Administration Dyspnea Albuterol/Ipratropium 3 ml 02/20/19 21:31 Duoneb 0.5 Mg-3 Mg/3 Ml Soln INHALATION Q4H PRN Wheezing Amiodarone HCl 100 mg 02/21/19 09:00 02/21/19 08:51 Cordarone PO 100 mg DAILY FLORES Administration Lipase/Protease/Amylase 1 each 02/21/19 09:00 02/21/19 08:[address] 5,000 Unit Capsule PO 1 each DAILY FLORES Administration Aspirin 81 mg 02/21/19 09:00 02/21/19 08:52 Aspirin PO 81 mg DAILY FLORES Administration Atorvastatin Calcium 40 mg 02/21/19 21:00 Lipitor PO HS FLORES Budesonide/Formoterol Fumarate 2 puff 02/21/19 08:00 02/21/19 08:15 Symbicort 160-4.5 Mcg Inhaler INHALATION 2 puff RT-BID FLORES Administration Cholecalciferol 1,000 unit 02/21/19 09:00 02/21/19 08:54 Vitamin D3 (25 Mcg = 1000 Iu) PO 1,000 unit DAILY FLORES Administration Clopidogrel Bisulfate 75 mg 02/21/19 09:00 02/21/19 08:52 Plavix PO 75 mg DAILY FLORES Administration Cyanocobalamin 1,000 mcg 02/21/19 09:00 02/21/19 08:52 Vitamin B-12 PO 1,000 mcg DAILY [facility] Administration Docusate Sodium 100 mg 02/21/19 21:00 Colace PO HS [facility] Ferrous Sulfate 325 mg 02/21/19 09:00 02/21/19 08:52 Feosol PO 325 mg BID FLORES Administration Folic Acid 1 mg 02/21/19 09:00 02/21/19 08:53 Folic Acid PO 1 mg DAILY [facility]ORES Administration Sodium Chloride 1,000 mls @ 60 mls/hr 02/20/19 21:15 02/20/19 22:10 Saline 0.9% IV 60 mls/hr .[id number] [facility]ORES Administration Piperacillin Sod/Tazobactam 100 mls @ 25 mls/hr 02/21/19 09:30 02/21/19 10:38 Sod 3.375 gm/ Sodium Chloride IVPB 25 mls/hr Q12HR [facility]ORES Administration Levothyroxine Sodium 100 mcg 02/21/19 09:00 02/21/19 08:52 Synthroid PO 100 mcg DAILY [facility] Administration Levothyroxine Sodium 75 mcg 02/21/19 06:30 02/21/19 06:43 Synthroid PO 75 mcg DAILY@0630 [facility] Administration Metoprolol Tartrate 25 mg 02/21/19 09:00 02/21/19 08:52 Lopressor PO 25 mg BID [facility] Administration Multivitamins 1 each 02/21/19 09:00 02/21/19 08:52 Theragran PO 1 each DAILY [facility] Administration Naloxone HCl 0.2 mg 02/20/19 21:14 Narcan IV Q2M PRN Opioid Reversal Nitroglycerin 0.4 mg 02/20/19 21:29 Nitrostat SUBLINGUAL Q5M PRN Chest Pain Ondansetron HCl 4 mg 02/20/19 21:14 Zofran IVP Q8HR PRN Nausea And Vomiting Pantoprazole Sodium 40 mg 02/21/19 07:30 02/21/19 06:43 Protonix PO 40 mg [id number] [facility] Administration Intake and Output 02/20/19 02/21/19 02/21/19 22:59 06:59 14:59 Intake Total 0 Output Total 500 200 525 Balance -500 -200 -525 Intake: Oral 0 Output: Urine 500 200 525 Other: Voiding Method Urinal Urinal # Voids 1 Weight 65.317 kg 64.1 kg 02/21/19 06:15 02/21/19 06:15 EKG Interpretations (text) EKG showed sinus rhythm with a right bundle branch block pattern Assessment and Plan (1) Chronic congestive heart failure Current Visit: Yes Status: Acute Code(s): I50.9 - HEART FAILURE, UNSPECIFIED SNOMED Code(s): 79255726 (2) KING (acute kidney injury) Current Visit: Yes Status: Acute Code(s): N17.9 - ACUTE KIDNEY FAILURE, UNSPECIFIED SNOMED Code(s): 02736468 (3) Community acquired pneumonia Current Visit: Yes Status: Acute Code(s): J18.9 - PNEUMONIA, UNSPECIFIED ORGANISM SNOMED Code(s): 293254876 (4) AICD (automatic cardioverter/defibrillator) present Current Visit: No Status: Acute Code(s): Z95.810 - PRESENCE OF AUTOMATIC (IMPLANTABLE) CARDIAC DEFIBRILLATOR SNOMED Code(s): 562408258 (5) Acute exacerbation of chronic obstructive airways disease Current Visit: No Status: Acute Code(s): J44.1 - CHRONIC OBSTRUCTIVE PU LMONARY DISEASE W (ACUTE) EXACERBATION SNOMED Code(s): 879832777 (6) Coronary artery disease Current Visit: Yes Status: Acute Code(s): I25.10 - ATHSCL HEART DISEASE OF [place] CORONARY ARTERY W/O ANG PCTRS SNOMED Code(s): 17038668 Plan: Patient is feeling much better today. Continue current medical therapy. We'll follow him along with you
--- NOTE | 2019-02-21 14:20 | P.PN ---
Subjective Progress Note Date: 02/21/19 (A KCI, intravascular dehydration, pneumonia) Principal diagnosis: Diagnosis: #1 left lower lobe pneumonia with possible aspiration. #2 hyperkalemia, lisinopril as well as Aldactone has been stopped. #3 intravascular dehydration, acute kidney injury with elevated BUN and creatinine with a baseline 1.6, Lasix has been stopped. With gentle hydration. #4 ischemic cardiomyopathy with impaired ejection fraction was previous MA in the past. #5 hyponatremia sodium 130 on admission. #6 respiratory acidosis by ABGs. With notable carbon dioxide normal. #7 hypothyroidism. #8 pacemaker AICD with a history of paroxysmal atrial fibrillation and ventricular arrhythmia. #9 history of hypertension with hypertensive heart disease currently on the low side 106/60. #8 chronic respiratory failure with hypoxemia associated with COPD with history of chronic smoker in the past 1-2 pack per day. #9 oxygen dependent patient had home oxygen as well. #10 coronary artery disease and atherosclerotic heart disease. #11 history of TIA and CVA on Plavix. And aspirin with history of stent plac ement This progress note date of service 02/21/[address] Finney Patient seen in [id number] and he felt better today, yesterday he was sleepy and groggy and able to get up at home and subsequently his called EMS and brought him to the hospital. Patient was dehydrated and medication adjusted and gentle IV was started, patient awake alert oriented able to communicate freely today Laboratory today: WBC 13.1 hemoglobin 9.8, which did not change significantly from yesterday WBC was 13.2. His blood gases was indicating that his pH 7.27 which is acidotic and pCO2 71 and the bicarb was 31. However there is a. To be venous. Sodium 132, and potassium is 5.6, BUN 49 creatinine 2.04 with normal magnesium and calcium. Still persistent hyperkalemia however patient seen already by Dr. Cid icu rn and hopefully tomorrow we'll repeat the lab and the underlying nephrotoxic medication has been eliminated. His serum osmolality 286 and a urine osmolality was 301 however we do not have the urine sodium but clinically patient was dehydrated. Urine analysis was negative. Vital signs today temperature 98.4 F oral, is pulse rate is regular sinus 81/m this visit, his respiratory rate is 18/m normal nonlabored, his blood pressure 106/60 with a mean blood pressure 75. And his pulse ox on 2 L 94%. On exam: Patient is conscious alert oriented 3. Better today. We will be starting ambulation. HEENT was negative, no blurred vision. Neck was supple no JVD no thyromegaly no lymphadenopathy trachea midline. Chest: Decreased air entry on the left lower lung johnson and there is still l isted scattered wheezes and rhonchi bilaterally with decreased air entry. Increase anteroposterior diameter. Heart: Regular sinus rhythm patient on amiodarone. He had AICD pacemaker. Abdomen soft positive bowel sounds no tenderness no nausea no vomiting. Extremities no edema and positive pulses. Psychiatric and neurologically stable. Patient had intermittent urinary retention and currently he is voiding and will hold her bladder scan if he is not voiding. Assessment: #1 left ear along aspiration pneumonia the antibiotic has been changed by Dr. chapman pulmonary and critical care who did see him today. #2 hyperkalemia, hyponatremia, a KCI monitored and seen by Dr. Topete the icu rn. And he will be following or Dr. Anaya. #3 ambulate early as tolerated, and physical therapy has been ordered. Plan: #1 continue the current treatment and hydration gentle. #2 rechecking on his laboratory tomorrow. #3 patient on Plavix and aspirin and will be urgently ambulate. Objective - Vital Signs Vital signs: Vital Signs Temp 98.4 F 02/21/19 10:57 Pulse 81 02/21/19 11:01 Resp 18 02/21/19 11:01 BP 106/60 02/21/19 10:57 Pulse Ox 94 L 02/21/19 10:57 Intake & Output 02/20/19 02/21/19 02/21/19 18:59 06:59 18:59 Intake Total 240 Output Total 700 1151 Balance -700 -911 Weight 64.1 kg Intake: Oral 240 Output: Urine 700 675 Post Void Residual 476 Other: Voiding Method Urinal Urinal # Voids 1 - Labs CBC & Chem 7: 02/21/19 06:15 02/21/19 06:15 Labs: Abnormal Lab Results - Last 24 Hours (Table) 02/20/19 02/20/19 02/20/19 Range/Units 20:05 20:05 20:55 WBC 13.2 H (3.8-10.6) k/uL RBC 3.35 L (4.30-5.90) m/uL Hgb 10.7 L (13.0-17.5) gm/dL Hct 34.8 L (39.0-53.0) % MCV 104.0 H (80.0-100.0) fL MCHC 30.7 L (31.0-37.0) g/dL RDW 16.9 H (11.5-15.5) % Neutrophils # 11.5 H (1.3-7.7) k/uL Lymphocytes # 0.5 L (1.0-4.8) k/uL VBG pH 7.27 L (7.31-7.41) VBG pCO2 71 H* (37-51) mmHg VBG HCO3 31 H (24-28) mmol/L Sodium 130 L (137-145) mmol/L Potassium 5.6 H (3.5-5.1) mmol/L Chloride 93 L (98-107) mmol/L Carbon Dioxide 31 H (22-30) mmol/L BUN 53 H (9-20) mg/dL Creatinine 2.55 H (0.66-1.25) mg/dL Glucose (74-99) mg/dL 02/21/19 02/21/19 Range/Units 06:15 06:15 WBC 13.1 H (3.8-10.6) k/uL RBC 3.09 L (4.30-5.90) m/uL Hgb 9.8 L (13.0-17.5) gm/dL Hct 32.3 L (39.0-53.0) % MCV 104.8 H (80.0-100.0) fL MCHC 30.3 L (31.0-37.0) g/dL RDW (11.5-15.5) % Neutrophils # 12.6 H (1.3-7.7) k/uL Lymphocytes # 0.2 L (1.0-4.8) k/uL VBG pH (7.31-7.41) VBG pCO2 (37-51) mmHg VBG HCO3 (24-28) mmol/L Sodium 132 L (137-145) mmol/L Potassium 5.6 H (3.5-5.1) mmol/L Chloride 96 L (98-107) mmol/L Carbon Dioxide (22-30) mmol/L BUN 49 H (9-20) mg/dL Creatinine 2.04 H (0.66-1.25) mg/dL Glucose 135 H (74-99) mg/dL
[2019-02-21] MEDS: SODIUM CHLORIDE 0.9% 1,000 ML IV SCH (15:29)
[2019-02-21] MEDS ORDERED: DOCUSATE 100 MG CAP PO SCH (21:00)
[2019-02-21] MEDS ORDERED: ATORVASTATIN 40 MG TAB PO SCH (21:00)
[2019-02-22] MEDS: PANTOPRAZOLE 40 MG TABLET PO SCH (06:50)
[2019-02-22] MEDS: LEVOTHYROXINE 75 MCG TAB PO SCH (06:50)
[2019-02-22 07:07] LABS: Anisocytosis Slight; Basophils % (A) 0 %; Eosinophils % (A) 0 %; HCT 31.6 % (39.0-53.0); HGB 9.7 gm/dL (13.0-17.5); Hypochromasia Moderate; Lymphocytes # (A) 0.7 k/uL (1.0-4.8); Lymphocytes % (A) 7 %; MCH 31.7 pg (25.0-35.0); MCHC 30.6 g/dL (31.0-37.0); MCV 103.7 fL (80.0-100.0); Macrocytosis Moderate; Mean Platelet Volume 7.4; Monocytes # (A) 0.6 k/uL (0-1.0); Monocytes % (A) 6 %; Neutrophils # (A) 8.6 k/uL (1.3-7.7); Neutrophils % (A) 85 %; Platelet Count 309 k/uL (150-450); RBC 3.04 m/uL (4.30-5.90); RDW 16.7 % (11.5-15.5); WBC 10.1 k/uL (3.8-10.6)
[2019-02-22 07:22] LABS: Calcium 9.2 mg/dL (8.4-10.2); Potassium 4.7 mmol/L (3.5-5.1)
[2019-02-22] MEDS: CYANOCOBALAMIN 500 MCG TAB PO SCH (08:37)
[2019-02-22] MEDS: AMIODARONE 100 MG TAB PO SCH (08:37)
[2019-02-22] MEDS: CLOPIDOGREL 75 MG TAB PO SCH (08:37)
[2019-02-22] MEDS: FERROUS SULFATE 325 MG TAB PO SCH (08:37)
[2019-02-22] MEDS: CHOLECALCIFEROL 1,000 UNIT TAB PO SCH (08:37)
[2019-02-22] MEDS: ASPIRIN 81 MG PO SCH (08:37)
[2019-02-22] MEDS: FOLIC ACID 1 MG TAB PO SCH (08:38)
[2019-02-22] MEDS: PIPERACILLIN-TAZOBACTAM 3.375 GM in SODIUM CHLORIDE 0.9% 100 ML IVPB SCH (08:38)
[2019-02-22] MEDS: LIPASE 5,000/PROTEASE 17,000/AMYLASE 24,000 PO SCH (08:38)
[2019-02-22] MEDS: MULTIVITAMINS, THERA 1 EACH TAB PO SCH (08:38)
[2019-02-22] MEDS: METOPROLOL TARTRATE 25 MG TAB PO SCH (08:38)
[2019-02-22] MEDS: LEVOTHYROXINE 100 MCG TAB PO SCH (08:38)
[2019-02-22 08:47] VITALS: TEMP 98.4
[2019-02-22] MEDS: SODIUM CHLORIDE 0.9% 1,000 ML IV SCH (08:51)
[2019-02-22] MEDS: IPRATROPIUM-ALBUTEROL 3 ML NEB INHALATION PRN ×2 (09:15→15:23)
[2019-02-22] MEDS: SYMBICORT 160-4.5 MCG INHALER INHALATION SCH (09:15)
[2019-02-22] MEDS ORDERED: LACTOBACILLUS ACIDOPH & BULGAR 1 EACH PACKET PO SCH (09:30)
--- NOTE | 2019-02-22 09:46 | P.NPCON ---
History of Present Illness - Reason for Consult acute renal failure - History of Present Illness Reason for consultation: Acute kidney injury History of present illness: Patient is a 68-year-old male seen in consultation for acute kidney injury. Patient's creatinine was 2.55 on admission and is down to 1.55 today. Patient has history of systolic CHF with ejection fraction of 25-30% with mild to modera te mitral and tricuspid regurgitation along with severe pulmonary hypertension. Patient was taking Lasix 40 mg orally twice daily as well as Aldactone 25 mg once daily at home. All diuretics are currently held. He is receiving normal saline at 60 mL an hour. Patient presented to the hospital with generalized weakness. Patient recently had inguinal hernia repair. He denies any active chest pain or shortness of breath. No edema. No vomiting or diarrhea. He's tolerating regular diet. Admits to good urine output. No hematuria or dysuria. Denies use of nonsteroidals. Hemodynamically stable. He feels better today overall. Vital signs are stable. General: The patient appeared well nourished and normally developed. HEENT: Head exam is unremarkable. Neck is without jugular venous distension. LUNGS: Lungs are clear to auscultation and percussion. Breath sounds decreased. HEART: Rate and Rhythm are regular. First and second heart sounds normal. No murmurs, rubs or gallops. ABDOMEN: Abdominal exam reveals normal bowel sounds. Non-tender and non- distended. No evidence of peritonitis. EXTREMITITES: No clubbing, cyanosis, or edema. Past Medical History Past Medical History: Heart Failure, COPD, Hypertension, Myocardial Infarction (SC), Renal Disease, Thyroid Disorder, Hypertension, Myocardial Infarction (SC), Thyroid Disorder Additional Past Medical History / Comment(s): Coronary artery disease, history of severe ischemic cardiomyopathy with systolic heart failure and ejection fraction of 30-35%, history of proximal atrial fibrillation, sick sinus syndrome, history of coronary artery disease,, hypertension, previous SC, hypothyroidism, cataracts, chronic anemia, chronic kidney disease Last Myocardial Infarction Date:: 06/24/15 History of Any Multi-Drug Resistant Organisms: C-DIFF, MRSA Date of last positivie culture/infection: 2015 MDRO Source:: sacral wound Past Surgical History: Heart Catheterization With Stent, Orthopedic Surgery, Pacemaker Additional Past Surgical History / Comment(s): 1996 L shoulder rotator cuff surgery, colonoscopy with benign polypectomy.heart stent x1, sacral wound debridement with wound vac in 09/2015 Past Anesthesia/Blood Transfusion Reactions: No Reported Reaction Additional Past Anesthesia/Blood Transfusion Reaction / Comment(s): Pt has never received blood. Date of Last Stent Placement:: 06/2015 Type of Cardiac Device: Permanent Pacemaker Device Placement Date:: 11/25/2016 Past Psychological History: No Psychological Hx Reported Additional Psychological History / Comment(s): . Smoking Status: Former smoker Past Alcohol Use History: None Reported Additional Past Alcohol Use History / Comment(s): Pt states he quit smoking 06/24/15 He started smoking in 1968 and was a 1ppd smoker. Past Drug Use History: None Reported - Past Family History Father Family Medical History: Cancer, Coronary Artery Disease (CAD), Myocardial Infarction (SC) Additional Family Medical History / Comment(s): Father at age 86yrs. He had a CABG. Bladder cancer. Mother Family Medical History: Cancer Additional Family Medical History / Comment(s): Mother in her 30's of breast cancer. Medications and Allergies Home Medications Medication Instructions Recorded Confirmed Type Multivitamins, Thera [Multivitamin 1 tab PO DAILY 06/24/15 02/20/19 History (formulary)] Amiodarone [Cordarone] 100 mg PO DAILY 09/04/15 02/20/19 History Aspirin 81 mg PO DAILY 09/04/15 02/20/19 History Atorvastatin [Lipitor] 40 mg PO HS tab 09/22/15 02/20/19 Rx Clopidogrel [Plavix] 75 mg PO DAILY tab 09/22/15 02/20/19 Rx Nitroglycerin Sl Tabs [Nitrostat] 0.4 mg SUBLINGUAL Q5M PRN #0 tab 09/22/15 02/20/19 Rx Budesonide/Formoterol Fumarate 2 puff INHALATION RT-BID 09/29/15 02/20/19 History [Symbicort 160-4.5 Mcg Inhaler] Ferrous Sulfate [Iron (65 MG 325 mg PO BID 10/04/15 02/20/19 History Elemental)] Ipratropium-Albuterol Nebulize 3 ml INHALATION RT-QID PRN 10/29/16 02/20/19 History [Duoneb 0.5 mg-3 mg/3 ml Soln] Pantoprazole [Protonix] 40 mg PO DAILY 10/29/16 02/20/19 History Furosemide [Lasix] 40 mg PO BID@0900,1600 #60 tab 12/06/16 02/20/19 Rx Lisinopril [Zestril] 2.5 mg PO DAILY 02/13/17 02/20/19 History Spironolactone [Aldactone] 25 mg PO DAILY 02/13/17 02/20/19 History Docusate [Colace] 100 mg PO HS 12/13/17 02/20/19 History Folic Acid 0.8 mg PO DAILY 12/13/17 02/20/19 History Metoprolol Tartrate [Lopressor] 25 mg PO BID 12/13/17 02/20/19 History Procrit(Unknown Dose) 1 dose IJ Q21D PRN 12/13/17 02/20/19 History Albuterol Inhaler [Ventolin Hfa 1 - 2 puff INHALATION RT-Q6H PRN 02/16/19 02/20/19 History Inhaler] Allopurinol [Zyloprim] 100 mg PO DAILY 02/16/19 02/20/19 History Cyanocobalamin (Vitamin B-12) 1,000 mcg PO DAILY 02/16/19 02/20/19 History [Vitamin B-12] L.acidoph,Paracasei, B.lactis 1 cap PO DAILY 02/16/19 02/20/19 History [Probiotic] Cholecalciferol [Vitamin D3 (25 1,000 unit PO DAILY 02/20/19 02/20/19 History Mcg = 1000 Iu)] Levothyroxine Sodium [Synthroid] 175 mcg PO DAILY 02/20/19 02/20/19 History Allergies Allergy/AdvReac Type Severity Reaction Status Date / Time haloperidol [From Haldol] AdvReac Confusion Verified 02/20/19 20:59 Physical Exam Vitals: Vital Signs Temp Pulse Pulse Resp BP Pulse Ox 02/22/19 09:30 84 02/22/19 09:16 80 02/22/19 08:00 98.4 F 89 16 134/61 96 02/22/19 04:00 98.2 F 78 20 111/60 92 L 02/22/19 00:00 98.1 F 95 20 123/66 93 L 02/21/19 21:10 88 02/21/19 21:00 88 90 L 02/21/19 20:00 98.3 F 86 20 127/60 93 L 02/21/19 16:00 97.9 F 83 18 108/62 93 L 02/21/19 11:01 81 18 02/21/19 10:57 98.4 F 81 18 106/60 94 L Intake and Output 02/21/19 02/22/19 02/22/19 22:59 06:59 14:59 Intake Total 240 240 Output Total 925 750 450 Balance -145 -750 -210 Intake: Oral 240 240 Output: Urine 925 750 450 Other: Voiding Method Urinal Urinal Weight 63.9 kg Results - Lab Results Most recent lab results Calcium 9.2 mg/dL (8.4-10.2) 02/22/19 06:30 Magnesium 1.8 mg/dL (1.6-2.3) 02/21/19 06:15 02/22/19 06:30 02/22/19 06:30 Assessment and Plan Plan: Assessment: 1. Acute kidney injury mostly prerenal secondary to diuretics. Improving with IV hydration. Creatinine was 2.55 on admission and is down to 1.55 today. 2. Hyperkalemia secondary to lisinopril, Aldactone and acute kidney injury. Resolved. 3. Systolic CHF with ejection fraction of 25-30% with mild to moderate mitral and tricuspid regurgitation, severe pulmonary hypertension. 4. Status post inguinal hernia repair. 5. Hypovolemic hyponatremia improved with IV hydration. Plan: Hep-Lock IV fluids. Anticipate discharge today. I advised the patient to weigh himself daily. He is to resume Lasix 40 mg once daily and Aldactone 12.5 mg once daily starting Friday. Repeat BMP to 3 days postdischarge. Follow up outpatient in the next 1-2 weeks. Thank you for the consultation. I will continue to follow the patient with you during his hospital stay.
--- NOTE | 2019-02-22 12:56 | CDI ---
Documentation Clarification Form Date: 02/22/2019 12:26:27 PM From: Cate Miller RN, CCDS Admit Date: 02/20/2019 9:14:00 PM Patient Name: Rogers Mota Visit Number: [id number] Discharge Date: ATTENTION: The Clinical Documentation Specialists (CDI) and [facility] Coding Staff appreciate your assistance in clarifying documentation. Please respond to the clarification below the line at the bottom and electronically sign. The CDI & [facility] Coding staff will review the response and follow-up if needed. Please note: Queries are made part of the Legal Health Record. If you have any questions, please contact the author of this message via ITS. Dr. Arik Anaya Patient was admitted with acute kidney injury with a past medical history of chronic kidney disease and further clarification is needed. History/Risk Factors: Hypertensive chronic kidney disease, COPD, Heart Failure, Hypertension, Clinical Indicators: 68-year-old male with history of recent inguinal hernia repair. He present with decreased oral intake and he was on Lasix twice a day 40 mg. On admission BUN 52, CR 2.55 GFR 45 02/21/2019 BUN 49, CR 2.04, GFR 33 02/22/2019 BUN 38 CR 1.55 GFR 46 Patients Baseline On February 05, 2019: CR 1.6 GFR 40's Treatment: IV Fluids Monitor Labs Hold Diuretics In order to capture the severity of condition, please clarify if the condition signifies: CKD Stage 1 (GFR > 90) CKD Stage 2 (GFR 60-89) CKD Stage 3 (GFR 30-59) CKD Stage 4 (GFR 15-29) CKD Stage 5 (GFR <15) Other, please specify Unable to determine (Last Revision: December 2017) MTDD
[2019-02-22] MEDS: MAGNESIUM SULFATE-D5W PMX 1 GM in DEXTROSE/WATER 1 100ML.BAG IVPB SCH ×2 (13:32→15:08)
--- NOTE | 2019-02-22 14:48 | P.PN ---
Subjective Progress Note Date: 02/22/19 Principal diagnosis: Left lower lobe pneumonia, possible aspiration perioperatively. This patient is 68 and the patient underwent a right inguinal hernia surgery by Dr. tavares. Surgery was done without a complication on outpatient basis and the patient was discharged home. The patient presented within 48 hours of discharge complaining of generalized weakness. He was feeling extremely weak. He had a congested cough. He was also getting short of breath. No nausea. No vomiting. No pleurisy. No hemoptysis. No chest pain. In the ED the patient was found to have increased dyspnea wheezing he was given breathing treatments. The patient had a chest x-ray that showed a left lower lobe consolidation/pneumonia for that reason the patient was hospitalized. Noted his kidney function was also off and the patient's potassium level was at 5.6 with a creatinine of 2.55. The patient had a mild leukocytosis with a white cell count of 13.2. The BNP level was 4000. The patient was given a dose of Rocephin and Zithromax and was admitted to the hospital. He is also receiving gentle hydration with normal state rate of 60 mL an hour. Renal function is improving. EKG showing sinus rhythm with a first-degree AV block. Terms of his cardiac history, the patient is known to have severe cardiomyopathy with systolic heart failure. His ejection fraction estimated to be around 30- 35%. He has chronic systolic heart failure. He also has history of sick sinus syndrome and he has chronotropic incompetence and he has a AV node disease and he has also tendency to become hypokalemic as a result of Aldactone. He has a dual-chamber AICD implantation that was done 2 years ago. He has also had coronary artery disease with previous coronary intervention and stenting. He has paroxysmal atrial fibrillation. He has also chronic kidney disease. The patient is seen today 02/22/2019 in follow-up on the selective care unit. Currently awake and alert in no acute distress. Resting quite comfortably in bed. Loose nonproductive cough. No chills or night sweats. Maintaining good O2 saturations in the upper 90s on 2 L/m per nasal cannula. She's been afebrile. Hemodynamically stable. Preliminary sputum culture revealing gram- negative bacilli. Blood culture reveals no growth. White count 10.1. Hemoglobin 9.7. Creatinine 1.55. Currently on DuoNeb inhalations, Symbicort, Zosyn. Objective - Vital Signs Vital signs: Vital Signs Temp 98.4 F 02/22/19 08:00 Pulse 72 02/22/19 12:00 Resp 16 02/22/19 12:00 BP 115/67 02/22/19 12:00 Pulse Ox 94 L 02/22/19 12:00 Intake & Output 02/21/19 02/22/19 02/22/19 18:59 06:59 18:59 Intake Total 480 480 Output Total 1676 1150 900 Balance -1196 -1150 -420 Weight 63.9 kg Intake: Oral 480 480 Output: Urine 1200 1150 900 Post Void Residual 476 Other: Voiding Method Urinal Urinal - Exam GENERAL EXAM: Alert, active, comfortable in no apparent distress. On 2 L nasal cannula 96% O2 saturation. HEAD: Normocephalic. EYES: Normal reaction of pupils, equal size. NOSE: Clear with pink turbinates. THROAT: No erythema or exudates. NECK: No masses, no JVD. CHEST: No chest wall deformity. LUNGS: Equal air entry with crackles in the left posterior base.. CVS: S1 and S2 normal with no audible murmur, regular rhythm. ABDOMEN: Right inguinal hernia repair site clean and dry. No hepatosplenomegaly, normal bowel sounds, no guarding or rigidity. SPINE: No scoliosis or deformity SKIN: No rashes CENTRAL NERVOUS SYSTEM: No focal deficits, tone is normal in all 4 extremities. EXTREMITIES: There is no peripheral edema. No clubbing, no cyanosis. Periphera l pulses are intact. - Labs CBC & Chem 7: 02/22/19 06:30 02/22/19 06:30 Labs: Abnormal Lab Results - Last 24 Hours (Table) 02/22/19 02/22/19 Range/Units 06:30 06:30 RBC 3.04 L (4.30-5.90) m/uL Hgb 9.7 L (13.0-17.5) gm/dL Hct 31.6 L (39.0-53.0) % MCV 103.7 H (80.0-100.0) fL MCHC 30.6 L (31.0-37.0) g/dL RDW 16.7 H (11.5-15.5) % Neutrophils # 8.6 H (1.3-7.7) k/uL Lymphocytes # 0.7 L (1.0-4.8) k/uL Carbon Dioxide 35 H (22-30) mmol/L BUN 38 H (9-20) mg/dL Creatinine 1.55 H (0.66-1.25) mg/dL Microbiology - Last 24 Hours (Table) 02/21/19 12:09 Gram Stain - Preliminary Sputum Sputum Culture - Preliminary Gram Neg Bacilli 02/20/19 22:00 Blood Culture - Preliminary Blood No Growth after 24 hours Assessment and Plan Assessment: Impression: 1 left lower lobe pneumonia, consider aspiration perioperatively. 2 increased dyspnea and cough and generalized weakness secondary to above, along with a mild leukocytosis 3 right inguinal hernia repair and the patient is postop day #3 4 acute on chronic kidney disease and creatinine is improving is down to 2.04 on today's evaluation with gentle hydration 5 coronary artery disease 6 ischemic cardiomyopathy with an ejection fraction of 30-35%, the patient has a biventricular AICD in place 7 history of proximal atrial fibrillation current rhythm is sinus 8 sick sinus syndrome 9 hypothyroidism 10 chronic anemia 11 hypertension Plan: The patient was seen and evaluated by Dr. Khalil. He is currently stable from the pulmonary standpoint. He could be discharged home on oral antibiotics in the form of Augmentin. Follow up in our office in 1-2 weeks' time. We could repeat a chest x-ray then. I, the cosigning physician, performed a history & physical examination of the patient. Lungs sounds crackles in left posterior base. Maintaining good O2 saturations in the 90s on 2 L/m per nasal cannula. I discussed the assessment and plan of care with my nurse practitioner, Jennyfer Enciso. I attest to the above note as dictated by her.
[2019-02-22 15:12] VITALS: BP 116/62; RESP 18
--- NOTE | 2019-02-22 15:25 | P.PN ---
Subjective Progress Note Date: 02/22/19 This is a 68-year-old gentleman with history of ischemic heart disease, cardiomyopathy, AICD implantation and also previous stent placement for inoperable coronary artery disease who underwent hernia surgery by Dr. [place]. Patient was sent home in a stable condition on last Friday. Patient apparently did well on Friday. However, on started a patient became lethargic and less response to are not eating well. He was also getting short of breath. In the emergency room patient was found to be dyspneic with wheezing. Chest x-ray showed left lower lobe consolidation or pneumonia. Patient is admitted to the hospital. His BNP was 4000. Patient has been on antibiotics. Patient. The creatinine is also went up suggestive of possible prerenal azotemia. Patient was given gentle hydration. Patient is feeling much better today. Denies any chest pain or shortness of breath. His lungs show rales at the left lower lobe. Doesn't appear to be in acute congestive heart failure. No complaints of chest pain. We'll continue current medical therapy. We'll watch for any with volume overload. Further recommendation will depend upon the clinical course. Peer Support Specialist also is following the patient. 02/22/2019 Patient was seen and examined this morning, overall doing well. He was noted on the monitor to have runs of nonsustained ventricular tachycardia, heart rate of about 100. He was on amiodarone which we will increase to 200 mg daily, we will also replace his magnesium level today. Objective - Vital Signs Vital signs: Vital Signs Temp 98.4 F 02/22/19 15:11 Pulse 73 02/22/19 15:11 Resp 18 02/22/19 15:11 BP 116/62 02/22/19 15:11 Pulse Ox 95 02/22/19 15:11 Intake & Output 02/21/19 02/22/19 02/22/19 18:59 06:59 18:59 Intake Total 480 480 Output Total 1676 1150 900 Balance -1196 -1150 -420 Weight 63.9 kg Intake: Oral 480 480 Output: Urine 1200 1150 900 Post Void Residual 476 Other: Voiding Method Urinal Urinal - Exam GENERAL EXAM: Patient is alert and oriented and doesn't appear to be in any acute distress HEENT: Normocephalic. Normal reaction of pupils, equal size, normal range of extraocular motion. No erythema or exudates in the throat. NECK: No masses, no nuchal rigidity. CHEST: No chest wall deformity. LUNGS: Rales at the right base HEART: S1 and S2 normal with no audible mumurs or gallops. Regular rhythm, femorals equal on both sides.. ABDOMEN: No hepatosplenomegaly, normal bowel sounds, no guarding or rigidity. SKIN: No rashes CENTRAL NERVOUS SYSTEM: No focal deficits. EXTREMITIES: No cyanosis, clubbing or edema. - Labs CBC & Chem 7: 02/22/19 06:30 02/22/19 06:30 Labs: Abnormal Lab Results - Last 24 Hours (Table) 02/22/19 02/22/19 Range/Units 06:30 06:30 RBC 3.04 L (4.30-5.90) m/uL Hgb 9.7 L (13.0-17.5) gm/dL Hct 31.6 L (39.0-53.0) % MCV 103.7 H (80.0-100.0) fL MCHC 30.6 L (31.0-37.0) g/dL RDW 16.7 H (11.5-15.5) % Neutrophils # 8.6 H (1.3-7.7) k/uL Lymphocytes # 0.7 L (1.0-4.8) k/uL Carbon Dioxide 35 H (22-30) mmol/L BUN 38 H (9-20) mg/dL Creatinine 1.55 H (0.66-1.25) mg/dL Microbiology - Last 24 Hours (Table) 02/21/19 12:09 Gram Stain - Preliminary Sputum Sputum Culture - Preliminary Gram Neg Bacilli 02/20/19 22:00 Blood Culture - Preliminary Blood No Growth after 24 hours Assessment and Plan Plan: Assessment and plan #1 systolic congestive heart failure acute on chronic #2 acute kidney injury #3 ischemic cardio myopathy with prior AICD implant #4 CAD #5 acute exacerbation of COPD #6 acute on chronic kidney disease #7 hypertension #8 Hyperlipidemia #9 nonsustained ventricular tachycardia Plan We will increase the dose of amiodarone to [address] magnesium[address] Continue the rest of his medications. DNP note has been reviewed, I agree with a documented findings and plan of care. Patient was seen and examined.
[2019-02-22] MEDS ORDERED: PIPERACILLIN-TAZOBACTAM 3.375 GM in SODIUM CHLORIDE 0.9% 100 ML IVPB SCH (16:00)
[2019-02-22 16:12] VITALS: PULSE 73
[2019-02-22] MEDS ORDERED: FUROSEMIDE 40 MG TAB PO SCH (16:15)
--- NOTE | 2019-02-22 16:46 | XR ---
EXAMINATION TYPE: XR chest 1V portable DATE OF EXAM: 02/22/2019 COMPARISON: 02/20/2019 HISTORY: Short of breath TECHNIQUE: Single frontal view of the chest is obtained. FINDINGS: There is blunting of left costophrenic angle. There is a left axillary pacemaker with the lead tips in the right ventricle. There are chest leads. There is no gross heart failure. There is li near density at the left lung base. IMPRESSION: Small left pleural effusion and left basilar subsegmental atelectasis not significantly different than last exam. No heart failure.
--- NOTE | 2019-02-22 18:39 | P.DS ---
Providers Date of admission: 02/20/19 21:14 Expected date of discharge: 02/22/19 Attending physician: Jovanni Finney Consults: 02/20/19 21:15 Consult Physician Routine Consulting Provider: Arik Anaya Consult Reason/Comments: brando Do you want consulting provider notified?: Yes 02/20/19 21:16 Consult Physician Routine Consulting Provider: Hari Hou Consult Reason/Comments: copd Do you want consulting provider notified?: Yes 02/20/19 21:19 Consult Physician Routine Consulting Provider: Tye Mcdowell Consult Reason/Comments: heart failure Do you want consulting provider notified?: Yes Primary care physician: Jovanni Finney Discharge diagnoses: #1 acute kidney injury #2 hyperkalemia secondary to lisinopril and Aldactone. #3 left lower lobe pneumonia community-acquired. #4 hyponatremia #5 chronic obstructive pulmonary disease with hypoxemia and chronic respiratory failure with the oxygen dependent. Mild acidemia secondary to carbon dioxide retention. ER presentation: Patient brought by ambulance with a complaint of generalized weakness with the associated multiple comorbidity, patient had a day probably for the admission hernia repair by Dr. Jack but it did not do anything with the current symptoms. He was groggy and lethargic and subsequently his brought him through ambulance to the ER at [facility]. Disposition from the ER with the a [facility] and community-acquired pneumonia. Consulting physician: #[address] Hou consulted, seen by Dr. Burns. Followed by Dr. Garrett mathew. Cleared him for discharge today on Augmentin 875 mg twice a day for one week. #2 seen by the cardiology group and increase his albuterol to 200 mg daily #[address] Anaya seen patient and cleared him for discharge and he'll order Lasix once a day 40 mg and in order Aldactone 12.5 mg once daily. Patient will be followed with them as above. Patient will follow with me in 2-3 days in my office of Dr. Finney. Patient cleared by the above physician for discharge. Laboratory on discharge 02/22/2019, WBC down to 10.1, hemoglobin 9.7, MCV 103.7, Electrolyte improved sodium 139, potassium 4.7, carbon dioxide 35. Creatinine 1.55 which significantly improved with the baseline 1.6, BUN at 38. And blood sugar was 80 this morning magnesium is 2 stable. Clinical exam: His vital signs today at the time of discharge temperature 98.4 orally Fahrenheit and his heart rate 73 and regular respiratory 18/m nonlabored, blood pressure 116/62 with a mean pressure is 80 he is on oxygen 95 pulse ox on 2 L nasal cannula. On clinical exam patient is conscious alert oriented 3 ambulatory. No lateralizing sign no evidence of CVA or neurological deficit. The head was normocephalic atraumatic,. Equal reactive, conjunctiva is pink sclera is nonicteric oropharynx he had a plate and lower partial, neck was supple no JVD no thyromegaly no lymphadenopathy trachea midline. Lung: Good air entry with the normal breath sounds no wheezes nor rhonchi's the chest x-ray was stable. Heart was regular sinus rhythm and has been increasing his amiodarone to 200 mg by the cardiology team. Abdomen soft positive bowel sounds no tenderness of the second event. Extremities no edema. Positive pulses. Psychiatric stable with normal mood. Neurologically stable no lateralizing sign. Ambulatory and the creatinine and narrative is intact generalized weakness has been markedly improved. I spoke with his on the phone and she will come and pick him patient himself wants to go home as well. Assessment and plan: Patient is stable general condition and they did explain the adjustment of medication Lasix will be orally fairly milligram once a day his stated that she had enough no need for him a prescription. Dr. Reyes recommended to go back on spironolactone 12.5 mg once a day and the understand that he held it before because of the hyperkalemia. However patient has ischemic cardiomyopathy with ejection fraction 20-30% and he may go back again in 2 congestive heart failure. His medication completely but lisinopril has been discontinued because of the hyperkalemia. Nephrology new I did explain that to the patient and his and the nursing staff and patient will be following me in the office visit in 2-3 days thinking Patient Condition at Discharge: Fair Plan - Discharge Summary Discharge Rx Participant: Yes New Discharge Prescriptions: New RX: Amoxic-Pot Clav 875-125Mg [Augmentin 875-125] 1 each PO Q12HR #14 tab RX: Furosemide [Lasix] 40 mg PO DAILY tab Spironolactone [Aldactone] 12.5 mg PO DAILY #30 tablet Continue RX: Multivitamins, Thera [Multivitamin (formulary)] 1 tab PO DAILY RX: Aspirin 81 mg PO DAILY RX: Atorvastatin [Lipitor] 40 mg PO HS tab RX: Clopidogrel [Plavix] 75 mg PO DAILY tab RX: Nitroglycerin Sl Tabs [Nitrostat] 0.4 mg SUBLINGUAL Q5M PRN #0 tab PRN Reason: Chest Pain RX: Budesonide/Formoterol Fumarate [Symbicort 160-4.5 Mcg Inhaler] 2 puff INHALATION RT-BID RX: Pantoprazole [Protonix] 40 mg PO DAILY RX: Ipratropium-Albuterol Nebulize [Duoneb 0.5 mg-3 mg/3 ml Soln] 3 ml INHALATION RT-QID PRN PRN Reason: Dyspnea RX: Docusate [Colace] 100 mg PO HS RX: Metoprolol Tartrate [Lopressor] 25 mg PO BID RX: Folic Acid 0.8 mg PO DAILY Procrit(Unknown Dose) 1 dose IJ Q21D PRN PRN Reason: anemia RX: Allopurinol [Zyloprim] 100 mg PO DAILY RX: Albuterol Inhaler [Ventolin Hfa Inhaler] 1 - 2 puff INHALATION RT-Q6H PRN PRN Reason: Shortness Of Breath RX: L.acidoph,Paracasei, B.lactis [Probiotic] 1 cap PO DAILY RX: Cyanocobalamin (Vitamin B-12) [Vitamin B-12] 1,000 mcg PO DAILY RX: Cholecalciferol [Vitamin D3 (25 Mcg = 1000 Iu)] 1,000 unit PO DAILY RX: Levothyroxine Sodium [Synthroid] 175 mcg PO DAILY Discontinued RX: Furosemide [Lasix] 40 mg PO BID@0900,1600 #60 tab Spironolactone [Aldactone] 25 mg PO DAILY Lisinopril [Zestril] 2.5 mg PO DAILY No Action RX: Amiodarone [Cordarone] 100 mg PO DAILY RX: Ferrous Sulfate [Iron (65 MG Elemental)] 325 mg PO BID Discharge Medication List RX: Multivitamins, Thera [Multivitamin (formulary)] 1 tab PO DAILY 06/24/15 [History] RX: Amiodarone [Cordarone] 100 mg PO DAILY 09/04/15 [History] RX: Aspirin 81 mg PO DAILY 09/04/15 [History] RX: Atorvastatin [Lipitor] 40 mg PO HS tab 09/22/15 [Rx] RX: Clopidogrel [Plavix] 75 mg PO DAILY tab 09/22/15 [Rx] RX: Nitroglycerin Sl Tabs [Nitrostat] 0.4 mg SUBLINGUAL Q5M PRN #0 tab 09/22/15 [Rx] RX: Budesonide/Formoterol Fumarate [Symbicort 160-4.5 Mcg Inhaler] 2 puff INHALATION RT-BID 09/29/15 [History] RX: Ferrous Sulfate [Iron (65 MG Elemental)] 325 mg PO BID 10/04/15 [History] RX: Ipratropium-Albuterol Nebulize [Duoneb 0.5 mg-3 mg/3 ml Soln] 3 ml INHALATION RT-QID PRN 10/29/16 [History] RX: Pantoprazole [Protonix] 40 mg PO DAILY 10/29/16 [History] Procrit(Unknown Dose) 1 dose IJ Q21D PRN 12/13/17 [History] RX: Docusate [Colace] 100 mg PO HS 12/13/17 [History] RX: Folic Acid 0.8 mg PO DAILY 12/13/17 [History] RX: Metoprolol Tartrate [Lopressor] 25 mg PO BID 12/13/17 [History] RX: Albuterol Inhaler [Ventolin Hfa Inhaler] 1 - 2 puff INHALATION RT-Q6H PRN 02/16/19 [History] RX: Allopurinol [Zyloprim] 100 mg PO DAILY 02/16/19 [History] RX: Cyanocobalamin (Vitamin B-12) [Vitamin B-12] 1,000 mcg PO DAILY 02/16/19 [History] RX: L.acidoph,Paracasei, B.lactis [Probiotic] 1 cap PO DAILY 02/16/19 [History] RX: Cholecalciferol [Vitamin D3 (25 Mcg = 1000 Iu)] 1,000 unit PO DAILY 02/20/19 [History] RX: Levothyroxine Sodium [Synthroid] 175 mcg PO DAILY 02/20/19 [History] RX: Amoxic-Pot Clav 875-125Mg [Augmentin 875-125] 1 each PO Q12HR #14 tab 02/22/19 [Rx] RX: Furosemide [Lasix] 40 mg PO DAILY tab 02/22/19 [Rx] Spironolactone [Aldactone] 12.5 mg PO DAILY #30 tablet 02/22/19 [Rx] Follow up Appointment(s)/Referral(s): Og Hou MD [REFERRING] - 1-2 Days Arik Anaya DO [STAFF PHYSICIAN] - 1 Week Jovanni Finney MD [Primary Care Provider] - 1 Week Patient Instructions/Handouts: Acute Kidney Injury (DC), Sepsis (GEN)
[2019-02-22] MEDS ORDERED: AMOXIC-POT CLAV 875-125MG 1 EACH TAB PO SCH (21:00)
[2019-02-23] MEDS ORDERED: AMIODARONE 100 MG TAB PO SCH (09:00)
== END 2019-02-22 19:17 | disposition home or self-care (01) | DRG 177 ==
LOC: EC 19:41 → 3SCARD 21:14
PROVIDERS: ADMIT Internal Medicine; ATTEND Internal Medicine
DX: J69.0 Pneumonitis due to inhalation of food and vomit (principal); I50.23 Acute on chronic systolic (congestive) heart failure; N17.9 Acute kidney failure, unspecified; E87.1 Hypo-osmolality and hyponatremia; E87.2 Acidosis; I13.0 Hypertensive heart and chronic kidney disease with heart failure and stage 1 through stage 4 chronic kidney disease, or unspecified chronic kidney disease; J96.11 Chronic respiratory failure with hypoxia; I47.2 Ventricular tachycardia; J44.1 Chronic obstructive pulmonary disease with (acute) exacerbation; E03.9 Hypothyroidism, unspecified; E78.5 Hyperlipidemia, unspecified; E86.0 Dehydration; E86.1 Hypovolemia; E87.5 Hyperkalemia; T46.4X5A Adverse effect of angiotensin-converting-enzyme inhibitors, initial encounter; I25.10 Atherosclerotic heart disease of native coronary artery without angina pectoris; I08.1 Rheumatic disorders of both mitral and tricuspid valves; T50.0X5A Adverse effect of mineralocorticoids and their antagonists, initial encounter; D63.1 Anemia in chronic kidney disease; I48.0 Paroxysmal atrial fibrillation; I25.5 Ischemic cardiomyopathy; N18.3 Chronic kidney disease, stage 3 (moderate); D50.9 Iron deficiency anemia, unspecified; I25.82 Chronic total occlusion of coronary artery; I45.10 Unspecified right bundle-branch block; I27.20 Pulmonary hypertension, unspecified; I44.0 Atrioventricular block, first degree; I49.5 Sick sinus syndrome; T50.2X5A Adverse effect of carbonic-anhydrase inhibitors, benzothiadiazides and other diuretics, initial encounter; Z86.14 Personal history of Methicillin resistant Staphylococcus aureus infection; Z86.19 Personal history of other infectious and parasitic diseases; I25.2 Old myocardial infarction; Z86.73 Personal history of transient ischemic attack (TIA), and cerebral infarction without residual deficits; Z99.81 Dependence on supplemental oxygen; Z79.02 Long term (current) use of antithrombotics/antiplatelets; Z79.51 Long term (current) use of inhaled steroids; Z79.82 Long term (current) use of aspirin; Z79.890 Hormone replacement therapy; Z79.899 Other long term (current) drug therapy; Z87.891 Personal history of nicotine dependence; Z88.8 Allergy status to other drugs, medicaments and biological substances; Z95.5 Presence of coronary angioplasty implant and graft; Z95.810 Presence of automatic (implantable) cardiac defibrillator; Z80.3 Family history of malignant neoplasm of breast; Z80.52 Family history of malignant neoplasm of bladder; Z82.49 Family history of ischemic heart disease and other diseases of the circulatory system
CPT/HCPCS: 36415; 71045; 71046; 80048; 81003; 82803; 83605; 83735; 83880; 83930; 83935; 84145; 84300; 84443; 84484; 85025; 85610; 87040; 87070; 87077; 87186; 87205; 94640; 96360; 99285

== ENCOUNTER 2019-04-21 14:34 | Inpatient (IN) | payer MEDICARE, OTHER ==
[2019-04-21] MEDS ORDERED: SODIUM CHLORIDE 0.9% 1,000 ML IV STA (15:09)
[2019-04-21] MEDS ORDERED: IPRATROPIUM-ALBUTEROL 3 ML NEB INHALATION STA (15:09)
--- NOTE | 2019-04-21 15:29 | ED ---
General Adult HPI - General Chief complaint: Shortness of Breath Stated complaint: SOB Time Seen by Provider: 04/21/19 14:54 Source: patient Mode of arrival: ambulatory Limitations: physical limitation - History of Present Illness Initial comments: Dictation was produced using [employer] dictation software. please excuse any grammatical, word or spelling errors. Chief Complaint: 68-year-old male multiple comorbidities presents to short of breath. History of Present Illness: His 68-year-old male who presents with chief comp laint of shortness of breath. Patient's past medical history of heart failure, COPD, coronary artery disease and myocardial infarction. States that since yesterday his dyspnea has been getting worse. Patient has multiple reasons to be short of breath. He states that his shortness of breath is especially worse with exertion. Denies any fever, chills or night sweats. Patient has no history of blood clots. He does not have any lower extremity symptoms. At rest she doesn't feel short of breath. Patient uses 2 L of oxygen at home chronically. The ROS documented in this emergency department record has been reviewed and confirmed by me. Those systems with pertinent positive or negative responses have been documented in the HPI. All other systems are other negative and/or noncontributory. PHYSICAL EXAM: General Impression: Alert and oriented x3, not in acute distress HEENT: Normocephalic atraumatic, extra-ocular movements intact, pupils equal and reactive to light bilaterally, mucous membranes moist. Cardiovascular: Heart regular rate and rhythm, S1&S2 audible, no murmurs, rubs or gallops Chest: Diffuse lung crackles Abdomen: Bowel sounds present, abdomen soft, non-tender, non-distended, no organomegaly Musculoskeletal: Pulses present and equal in all extremities, no peripheral edema Motor: no focal deficits noted Neurological: CN II-XII grossly intact, no focal motor or sensory deficits noted Skin: Intact with no visualized rashes Psych: Normal affect and mood ED course: 68-year-old male with multiple comorbidities presents with chief complaint of dyspnea. Vital signs upon arrival shows 87% on 3 L nasal cannula, respiratory rate of 26 rest of signs within acceptable limits. Laboratory evaluation obtained. CBC is grossly unremarkable. Coag panel unremarkable. Metabolic panel shows 5.5 potassium with slight hemolysis. Sightly normal. Cardiac enzyme is 0.029, prematurity peptide is elevated at 14,000. Chest x-ray is positive for congestive heart failure. Clinical presentation is consistent with acute decompensated heart failure. Patient given 40 mg of IV Lasix. We'll plan to have patient admitted for gentle diuresis and cardiology consultation. EKG interpretation: Ventricular rate 89, sinus rhythm with first-degree AV block, right bundle branch block, QRS 170, MA interval 232, QTc 520. . EKG compared to 02/20/2019 showing no changes. QT is prolonged. - Related Data Home Medications Medication Instructions Recorded Confirmed Multivitamins, Thera [Multivitamin 1 tab PO HS 06/24/15 04/21/19 (formulary)] Aspirin 81 mg PO DAILY 09/04/15 04/21/19 Budesonide/Formoterol Fumarate 2 puff INHALATION RT-BID 09/29/15 04/21/19 [Symbicort 160-4.5 Mcg Inhaler] Ferrous Sulfate [Iron (65 MG 325 mg PO BID 10/04/15 04/21/19 Elemental)] Ipratropium-Albuterol Nebulize 3 ml INHALATION RT-QID PRN 10/29/16 04/21/19 [Duoneb 0.5 mg-3 mg/3 ml Soln] Pantoprazole [Protonix] 40 mg PO DAILY 10/29/16 04/21/19 Docusate [Colace] 100 mg PO HS 12/13/17 04/21/19 Folic Acid 0.8 mg PO HS 12/13/17 04/21/19 Metoprolol Tartrate [Lopressor] 25 mg PO BID 12/13/17 04/21/19 Procrit(Unknown Dose) 1 dose SQ Q21D PRN 12/13/17 04/21/19 Albuterol Inhaler [Ventolin Hfa 1 - 2 puff INHALATION RT-Q6H PRN 02/16/19 04/21/19 Inhaler] Allopurinol [Zyloprim] 100 mg PO HS 02/16/19 04/21/19 Cyanocobalamin (Vitamin B-12) 1,000 mcg PO DAILY 02/16/19 04/21/19 [Vitamin B-12] L.acidoph,Paracasei, B.lactis 1 cap PO HS 02/16/19 04/21/19 [Probiotic] Cholecalciferol [Vitamin D3 (25 1,000 unit PO HS 02/20/19 04/21/19 Mcg = 1000 Iu)] Levothyroxine Sodium [Synthroid] 175 mcg PO DAILY 02/20/19 04/21/19 Previous Rx's Medication Instructions Recorded Atorvastatin [Lipitor] 40 mg PO HS tab 09/22/15 Clopidogrel [Plavix] 75 mg PO DAILY tab 09/22/15 Amiodarone [Cordarone] 200 mg PO DAILY #30 tab 02/22/19 Furosemide [Lasix] 40 mg PO DAILY tab 02/22/19 Spironolactone [Aldactone] 12.5 mg PO DAILY #30 tablet 02/22/19 Allergies Allergy/AdvReac Type Severity Reaction Status Date / Time haloperidol [From Haldol] AdvReac Confusion Verified 04/21/19 15:14 Review of Systems ROS Statement: Those systems with pertinent positive or pertinent negative responses have been documented in the HPI. ROS Other: All systems not noted in ROS Statement are negative. Past Medical History Past Medical History: Heart Failure, COPD, Hypertension, Myocardial Infarction ([place]), Renal Disease, Thyroid Disorder, Hypertension, Myocardial Infarction ([place]), Thyroid Disorder Additional Past Medical History / Comment(s): Coronary artery disease, history of severe ischemic cardiomyopathy with systolic heart failure and ejection fraction of 30-35%, sick sinus syndrome, history of coronary artery disease, hypothyroidism, cataracts, chronic anemia, chronic kidney disease Last Myocardial Infarction Date:: 06/24/15 History of Any Multi-Drug Resistant Organisms: C-DIFF, MRSA Date of last positivie culture/infection: 2015 MDRO Source:: sacral wound Past Surgical History: Heart Catheterization With Stent, Orthopedic Surgery, Pacemaker Additional Past Surgical History / Comment(s): 1996 L shoulder rotator cuff surgery, colonoscopy with benign polypectomy.heart stent x1, sacral wound debridement with wound vac in 09/2015 Past Anesthesia/Blood Transfusion Reactions: No Reported Reaction Additional Past Anesthesia/Blood Transfusion Reaction / Comment(s): Pt has never received blood. Date of Last Stent Placement:: 06/2015 Type of Cardiac Device: Permanent Pacemaker Device Placement Date:: 11/25/2016 Past Psychological History: No Psychological Hx Reported Smoking Status: Former smoker Past Alcohol Use History: None Reported Past Drug Use History: None Reported - Past Family History Father Family Medical History: Cancer, Coronary Artery Disease (CAD), Myocardial Infarction ([place]) Additional Family Medical History / Comment(s): Father at age 86yrs. He had a CABG. Bladder cancer. Mother Family Medical History: Cancer Additional Family Medical History / Comment(s): Mother in her 30's of breast cancer. General Exam Limitations: physical limitation Course Vital Signs 04/21/19 04/21/19 04/21/19 14:38 14:52 15:25 Temperature 98.8 F Pulse Rate 85 84 Respiratory 26 H Rate Blood Pressure 114/67 O2 Sat by Pulse 87 L 93 L Oximetry 04/21/19 04/21/19 15:31 15:43 Temperature 99.3 F Pulse Rate 80 85 Respiratory 18 Rate Blood Pressure 137/70 O2 Sat by Pulse 93 L Oximetry Medical Decision Making - Lab Data Result diagrams: 04/21/19 14:55 04/21/19 14:55 Lab Results 04/21/19 04/21/19 04/21/19 Range/Units 14:55 14:55 14:55 WBC 6.1 (3.8-10.6) k/uL RBC 3.57 L (4.30-5.90) m/uL Hgb 11.8 L (13.0-17.5) gm/dL Hct 38.0 L (39.0-53.0) % MCV 106.3 H (80.0-100.0) fL MCH 32.9 (25.0-35.0) pg MCHC 30.9 L (31.0-37.0) g/dL RDW 17.0 H (11.5-15.5) % Plt Count 231 (150-450) k/uL Neutrophils % 80 % Lymphocytes % 9 % Monocytes % 8 % Eosinophils % 2 % Basophils % 0 % Neutrophils # 4.8 (1.3-7.7) k/uL Lymphocytes # 0.5 L (1.0-4.8) k/uL Monocytes # 0.5 (0-1.0) k/uL Eosinophils # 0.1 (0-0.7) k/uL Basophils # 0.0 (0-0.2) k/uL Hypochromasia Moderate Anisocytosis Slight Macrocytosis Moderate PT (9.0-12.0) sec INR (<1.2) APTT (22.0-30.0) sec Sodium 133 L (137-145) mmol/L Potassium 5.5 H (3.5-5.1) mmol/L Chloride 91 L (98-107) mmol/L Carbon Dioxide 37 H (22-30) mmol/L Anion Gap 5 mmol/L BUN 31 H (9-20) mg/dL Creatinine 1.42 H (0.66-1.25) mg/dL Est GFR (CKD-EPI)AfAm 59 (>60 ml/min/1.73 sqM) Est GFR (CKD-EPI)NonAf 51 (>60 ml/min/1.73 sqM) Glucose 138 H (74-99) mg/dL Calcium 9.1 (8.4-10.2) mg/dL Magnesium (1.6-2.3) mg/dL Total Bilirubin 0.6 (0.2-1.3) mg/dL AST 38 (17-59) U/L ALT 31 (21-72) U/L Alkaline Phosphatase 76 (38-126) U/L Troponin I (0.000-0.034) ng/mL NT-Pro-B Natriuret Pep 05842 pg/mL Total Protein 6.8 (6.3-8.2) g/dL Albumin 3.6 (3.5-5.0) g/dL 04/21/19 04/21/19 04/21/19 Range/Units 14:55 14:55 14:55 WBC (3.8-10.6) k/uL RBC (4.30-5.90) m/uL Hgb (13.0-17.5) gm/dL Hct (39.0-53.0) % MCV (80.0-100.0) fL MCH (25.0-35.0) pg MCHC (31.0-37.0) g/dL RDW (11.5-15.5) % Plt Count (150-450) k/uL Neutrophils % % Lymphocytes % % Monocytes % % Eosinophils % % Basophils % % Neutrophils # (1.3-7.7) k/uL Lymphocytes # (1.0-4.8) k/uL Monocytes # (0-1.0) k/uL Eosinophils # (0-0.7) k/uL Basophils # (0-0.2) k/uL Hypochromasia Anisocytosis Macrocytosis PT 9.9 (9.0-12.0) sec INR 0.9 (<1.2) APTT 24.6 (22.0-30.0) sec Sodium (137-145) mmol/L Potassium (3.5-5.1) mmol/L Chloride (98-107) mmol/L Carbon Dioxide (22-30) mmol/L Anion Gap mmol/L BUN (9-20) mg/dL Creatinine (0.66-1.25) mg/dL Est GFR (CKD-EPI)AfAm (>60 ml/min/1.73 sqM) Est GFR (CKD-EPI)NonAf (>60 ml/min/1.73 sqM) Glucose (74-99) mg/dL Calcium (8.4-10.2) mg/dL Magnesium 2.1 (1.6-2.3) mg/dL Total Bilirubin (0.2-1.3) mg/dL AST (17-59) U/L ALT (21-72) U/L Alkaline Phosphatase (38-126) U/L Troponin I 0.029 (0.000-0.034) ng/mL NT-Pro-B Natriuret Pep pg/mL Total Protein (6.3-8.2) g/dL Albumin (3.5-5.0) g/dL Disposition Clinical Impression: Congestive heart failure Disposition: ADMITTED IP TO THIS HOSP Condition: Fair Referrals: Jovanni Finney MD [Primary Care Provider] - 1-2 days Decision Time: 16:49
[2019-04-21 15:41] LABS: INR 0.9 (<1.2); Partial Thromboplastin Time 24.6 sec (22.0-30.0); Prothrombin Time 9.9 sec (9.0-12.0)
[2019-04-21 15:42] LABS: Anisocytosis Slight; Basophils % (A) 0 %; Eosinophils # (A) 0.1 k/uL (0-0.7); Eosinophils % (A) 2 %; HGB 11.8 gm/dL (13.0-17.5); Hypochromasia Moderate; Lymphocytes # (A) 0.5 k/uL (1.0-4.8); Lymphocytes % (A) 9 %; MCH 32.9 pg (25.0-35.0); MCHC 30.9 g/dL (31.0-37.0); MCV 106.3 fL (80.0-100.0); Macrocytosis Moderate; Mean Platelet Volume 7.4; Monocytes # (A) 0.5 k/uL (0-1.0); Monocytes % (A) 8 %; Neutrophils # (A) 4.8 k/uL (1.3-7.7); Neutrophils % (A) 80 %; Platelet Count 231 k/uL (150-450); RBC 3.57 m/uL (4.30-5.90); WBC 6.1 k/uL (3.8-10.6)
[2019-04-21 15:43] LABS: Albumin 3.6 g/dL (3.5-5.0); Calcium 9.1 mg/dL (8.4-10.2); Total Bilirubin 0.6 mg/dL (0.2-1.3); Total Protein 6.8 g/dL (6.3-8.2)
[2019-04-21 15:47] LABS: Potassium 5.5 mmol/L (3.5-5.1)
[2019-04-21] MEDS ORDERED: FUROSEMIDE 10 MG/ML 4 ML VIAL IV STA (16:20)
--- NOTE | 2019-04-21 16:35 | XR ---
EXAMINATION TYPE: XR chest 2V DATE OF EXAM: 04/21/2019 COMPARISON: 02/22/2019 HISTORY: Short of breath TECHNIQUE: Frontal and lateral views of the chest are obtained. FINDINGS: There is some pulmonary interstitial edema. There is a left axillary pacemaker. There are chest leads. There is very slight blunting of the costophrenic angles. IMPRESSION: Mild pulmonary interstitial edema consistent with heart failure that is a change compare d to last exam.
[2019-04-21] MEDS ORDERED: ASPIRIN 325 MG TAB PO STA (16:49)
--- NOTE | 2019-04-21 18:56 | P.HPIM ---
History of Present Illness H&P Date: 04/21/19 (Not feeling well and extremely fatigued) Chief Complaint: Fatigue in the last 3 days, progressive shortness of breath, coughing. His admission history and physical date of service Date of service 04/21/2019. Chief complaint: Shortness of breath progressively worsening in the last 2-3 days Association was fatigued, tired, coughing. History of present illness: Patient brought back to the hospital by his because of the complaint progressive shortness of breath not resolving associated with cough. As well as plans fatigue doesn't note any activity except sleep. Patient with significant history of ischemic cardiomyopathy with recurrent congestive heart failure acute on top of chronic. The emergency room found that TohB natruretic peptide 14,000. His also tro ponin 10.029. Atrovent sodium was 133. His BUN 31 and creatinine 1.42 with the normal liver enzyme and abnormal potassium 5.5. Patient of permanent pacemaker as well as has underlying chronic atrial fib and he is on amiodarone for arrhythmia as well as anticoagulant Plavix, patient has history of COPD with the underlying history of smoking extensively which currently he stopped. And history of anemia. In the ER patient had blood culture and we'll send it as he looks like have also bronchitis with his cough probably tracheobronchitis and after that urine obtained for culture we'll also start Rocephin. Laboratory: Done in the ER Found WBC 6.1 hemoglobin is 11.8, and a hematocrit 38 with the MCV 106.3 with macrocytic anemia has been seen by Dr. Barros hematology oncology has been treating him with Procrit and folic acid. PT and INR is normal. And his chemistry: Sodium 133 mild hyponatremia, potassium 5.5 with hyper kalemia., Chloride 91 carbon dioxide 37., Anion gap is 5 and a BUN 31, creatinine 1.4 to with that estimated GFR for non- 51 which improved after the Lasix has been decreased however the patient appears to be in acute exacerbation of congestive heart failure and may need to increase the Lasix patient received Lasix in the ER. His blood sugar 138, calcium 9.1, magnesium 2.1, total bilirubin 0.6, AST 38, a LT 31, alk phos 76, and troponin 0.029 detail natruretic peptide is 14,000. His protein 6.8 albumin 3.6. Chest x-ray: Indicating mild pulmonary interstitial edema consistent with congestive heart failure, with comparison over the last exam. EKG: Sinus rhythm with first degree AV block, right bundle branch block, anteroseptal infarction probably old, patient with pacemaker. Past medical history: Congestive heart failure C, COPD, myocardial infarction, renal disease, thyroid disorder, hypertension,. Coronary artery disease severe ischemic cardiomyopathy ejection fraction of 30-35%, sick 5 sinus syndrome with the underlying coronary artery disease and hypothyroidism, cataract, chronic anemia. Last MRI 06/24/15. Heart cath with a stent. Pacemaker. 1996 left shoulder rotator cuff surgery, colonoscopy with a benign polypectomy, stent 1 of the heart, sacral wound debridement with a wound VAC in in September 2015. Last stent in June 2015. Permanent pacemaker on November 2016. 3 years ago he has history of C. difficile and MRSA. Family history: Cancer, coronary artery disease, myocardial infarction, father at age of 86, and that he had at that time coronary artery bypass graft and he had bladder cancer. His mother in her 30 with a breast cancer. Review of system: Neuropsychiatry: He is fatigued shortness of breath, coughing Cardiovascular: Occasional palpitation again shortness of breath no chest pain Respiratory expectoration noncolored sputum with coughing with a history of COPD and ex-smoker GI: No nausea or vomiting or diarrhea but loss of appetite no abdominal pain. no dysuria or hematuria but the urine output has been decreased since the Lasix decreased for the face of the kidney failure to improve. Patient on permanent oxygen at home but still he is desaturating. Musculoskeletal: Generalized weakness and sleepy fatigued and tired. Extremities: No edema and he wasn't gaining weight. His THE ABOVE-MENTIONED NO CONTRIBUTING FACTOR, AND NO CONTACT WITH CHILDREN OR ANYONE HE HAS VIRAL INFECTION. PHYSICAL EXAM: ON ADMISSION HIS TEMPERATURE 98.8 F, HEART RATE WAS IN 85/M HOWEVER WHEN SEEN BY MYSELF WAS IN THE 90-100. RESPIRATORY RATE IS INCREASED ON ADMISSION 26 AND HIS PULSE OX WAS 87 WITH BLOOD PRESSURE WAS 114/67 HIS TEMPERATURE WAS 99.3 AND AFTER HE RECEIVED LASIX HIS PULSE OX INCREASED IMPROVED SLIGHTLY. HEAD WAS NORMOCEPHALIC AND ATRAUMATIC, PUPIL WAS EQUAL REACTIVE, OROPHARYNX HE HAD UPPER PLATE DENTURES LOWER PARTIAL. HEARING MILDLY IMPAIRED NECK WAS SUPPLE NO JVD NO THYROMEGALY NO LYMPHADENOPATHY AND TRACHEA MIDLINE. CHEST: INCREASED ANTEROPOSTERIOR DIAMETER WITH UNDERLYING HYPERINFLATION OF THE LUNG WITH A HISTORY OF COPD. HE HAD BILATERAL RHONCHI'S AND RALES IN THE BASES. WITH THE ASSOCIATED RHONCHI WITH THE COUGH. ABDOMEN SOFT POSITIVE BOWEL SOUNDS NO ORGAN ENLARGEMENT. EXTREMITIES POSITIVE PULSES BILATERAL NO EDEMA. NEUROLOGICALLY: CONSCIOUS ALERT ORIENTED ABLE TO ANSWER SOME OF THE QUESTIONS BUT FATIGUED TIRED. ASSESSMENT: #1 ACUTE EXACERBATION OF CONGESTIVE HEART FAILURE ON THE TOP OF CHRONIC BIVENTRICULAR. #2 COPD WITH EXACERBATION. WITH THE ASSOCIATED TRACHEOBRONCHITIS WITH COUGHING AND LOW-GRADE TEMPERATURE. #3 HYPER KALEMIA WILL DISCONTINUE SPIRONOLACTONE #4 HISTORY OF ANEMIA AND MACROCYTIC HYPOCHROMIC AND HAS BEEN TREATED BY DR. Pollard hematology oncology. #5 chronic kidney disease stage III however patient was stage IV with the decrease Lasix to stage III but patient developed the acute exacerbation of congestive heart failure Plan: #1 patient received Lasix and will monitor his electrolytes. #2 consultation with the cardiology #3 probably have the renal function deteriorated clinically consulting also with the nephrology. #4 because of the hyperkalemia oral stop the spironolactone. #5 patient on amiodarone. Cardiology. #6 start Rocephin 1 g every 24 R with the underlying tracheobronchitis. #7 patient has been seen Dr. Hou pulmonary and will be probably consulting pulmonary if we have worsening condition as well. Past Medical History Past Medical History: Heart Failure, COPD, Hypertension, Myocardial Infarction ([place]), Renal Disease, Thyroid Disorder, Hypertension, Myocardial Infarction ([place]), Thyroid Disorder Additional Past Medical History / Comment(s): Coronary artery disease, history of severe ischemic cardiomyopathy with systolic heart failure and ejection fraction of 30-35%, sick sinus syndrome, history of coronary artery disease, hypothyroidism, cataracts, chronic anemia, chronic kidney disease Last Myocardial Infarction Date:: 06/24/15 History of Any Multi-Drug Resistant Organisms: C-DIFF, MRSA Date of last positivie culture/infection: 2015 MDRO Source:: sacral wound Past Surgical History: Heart Catheterization With Stent, Orthopedic Surgery, Pacemaker Additional Past Surgical History / Comment(s): 1996 L shoulder rotator cuff surgery, colonoscopy with benign polypectomy.heart stent x1, sacral wound debridement with wound vac in 09/2015 Past Anesthesia/Blood Transfusion Reactions: No Reported Reaction Additional Past Anesthesia/Blood Transfusion Reaction / Comment(s): Pt has never received blood. Date of Last Stent Placement:: 06/2015 Type of Cardiac Device: Permanent Pacemaker Device Placement Date:: 11/25/2016 Past Psychological History: No Psychological Hx Reported Smoking Status: Former smoker Past Alcohol Use History: None Reported Past Drug Use History: None Reported - Past Family History Father Family Medical History: Cancer, Coronary Artery Disease (CAD), Myocardial Infarction ([place]) Additional Family Medical History / Comment(s): Father at age 86yrs. He had a CABG. Bladder cancer. Mother Family Medical History: Cancer Additional Family Medical History / Comment(s): Mother in her 30's of breast cancer. Medications and Allergies Home Medications Medication Instructions Recorded Confirmed Type Multivitamins, Thera [Multivitamin 1 tab PO HS 06/24/15 04/21/19 History (formulary)] Aspirin 81 mg PO DAILY 09/04/15 04/21/19 History Atorvastatin [Lipitor] 40 mg PO HS tab 09/22/15 04/21/19 Rx Clopidogrel [Plavix] 75 mg PO DAILY tab 09/22/15 04/21/19 Rx Budesonide/Formoterol Fumarate 2 puff INHALATION RT-BID 09/29/15 04/21/19 History [Symbicort 160-4.5 Mcg Inhaler] Ferrous Sulfate [Iron (65 MG 325 mg PO BID 10/04/15 04/21/19 History Elemental)] Ipratropium-Albuterol Nebulize 3 ml INHALATION RT-QID PRN 10/29/16 04/21/19 History [Duoneb 0.5 mg-3 mg/3 ml Soln] Pantoprazole [Protonix] 40 mg PO DAILY 10/29/16 04/21/19 History Docusate [Colace] 100 mg PO HS 12/13/17 04/21/19 History Folic Acid 0.8 mg PO HS 12/13/17 04/21/19 History Metoprolol Tartrate [Lopressor] 25 mg PO BID 12/13/17 04/21/19 History Procrit(Unknown Dose) 1 dose SQ Q21D PRN 12/13/17 04/21/19 History Albuterol Inhaler [Ventolin Hfa 1 - 2 puff INHALATION RT-Q6H PRN 02/16/19 04/21/19 History Inhaler] Allopurinol [Zyloprim] 100 mg PO HS 02/16/19 04/21/19 History Cyanocobalamin (Vitamin B-12) 1,000 mcg PO DAILY 02/16/19 04/21/19 History [Vitamin B-12] L.acidoph,Paracasei, B.lactis 1 cap PO HS 02/16/19 04/21/19 History [Probiotic] Cholecalciferol [Vitamin D3 (25 1,000 unit PO HS 02/20/19 04/21/19 History Mcg = 1000 Iu)] Levothyroxine Sodium [Synthroid] 175 mcg PO DAILY 02/20/19 04/21/19 History Amiodarone [Cordarone] 200 mg PO DAILY #30 tab 02/22/19 04/21/19 Rx Furosemide [Lasix] 40 mg PO DAILY tab 02/22/19 04/21/19 Rx Spironolactone [Aldactone] 12.5 mg PO DAILY #30 tablet 02/22/19 04/21/19 Rx Allergies Allergy/AdvReac Type Severity Reaction Status Date / Time haloperidol [From Haldol] AdvReac Confusion Verified 04/21/19 15:14 Physical Exam Vitals: Vital Signs Temp Pulse Resp BP Pulse Ox 04/21/19 17:19 98.7 F 87 18 123/77 93 L 04/21/19 15:43 99.3 F 85 18 137/70 93 L 04/21/19 15:31 80 04/21/19 15:25 84 04/21/19 14:52 93 L 04/21/19 14:38 98.8 F 85 26 H 114/67 87 L Intake and Output 04/21/19 04/21/19 04/21/19 06:59 14:59 22:59 Other: Weight 63.957 kg Results CBC & Chem 7: 04/21/19 14:55 04/21/19 14:55 Labs: Abnormal Lab Results - Last 24 Hours (Table) 04/21/19 04/21/19 Range/Units 14:55 14:55 RBC 3.57 L (4.30-5.90) m/uL Hgb 11.8 L (13.0-17.5) gm/dL Hct 38.0 L (39.0-53.0) % MCV 106.3 H (80.0-100.0) fL MCHC 30.9 L (31.0-37.0) g/dL RDW 17.0 H (11.5-15.5) % Lymphocytes # 0.5 L (1.0-4.8) k/uL Sodium 133 L (137-145) mmol/L Potassium 5.5 H (3.5-5.1) mmol/L Chloride 91 L (98-107) mmol/L Carbon Dioxide 37 H (22-30) mmol/L BUN 31 H (9-20) mg/dL Creatinine 1.42 H (0.66-1.25) mg/dL Glucose 138 H (74-99) mg/dL
[2019-04-21] MEDS: IPRATROPIUM-ALBUTEROL 3 ML NEB INHALATION PRN (19:08)
[2019-04-21] MEDS: SYMBICORT 160-4.5 MCG INHALER INHALATION SCH (19:08)
[2019-04-21] MEDS: SODIUM CHLORIDE 0.9% 1,000 ML IV SCH (20:02)
[2019-04-21] MEDS ORDERED: FUROSEMIDE 40 MG TAB PO SCH (21:00)
[2019-04-21] MEDS: METOPROLOL TARTRATE 25 MG TAB PO SCH (21:23)
[2019-04-21] MEDS: FERROUS SULFATE 325 MG TAB PO SCH (21:23)
[2019-04-21] MEDS: DOCUSATE 100 MG CAP PO SCH (21:23)
[2019-04-21] MEDS: FOLIC ACID 1 MG TAB PO SCH (21:23)
[2019-04-21] MEDS: ATORVASTATIN 40 MG TAB PO SCH (21:23)
[2019-04-21] MEDS: MULTIVITAMINS, THERA 1 EACH TAB PO SCH (21:24)
[2019-04-21] MEDS: LACTOBACILLUS ACIDOPH & BULGAR 1 EACH PACKET PO SCH (21:24)
[2019-04-21] MEDS: CHOLECALCIFEROL 1,000 UNIT TAB PO SCH (21:24)
[2019-04-21] MEDS: ALLOPURINOL 100 MG TAB PO SCH (21:24)
[2019-04-22] MEDS: FUROSEMIDE 10 MG/ML 2 ML VIAL IV SCH ×3 (01:04→17:40)
[2019-04-22] MEDS: IPRATROPIUM-ALBUTEROL 3 ML NEB INHALATION PRN ×5 (03:04→20:02)
[2019-04-22] MEDS: PANTOPRAZOLE 40 MG TABLET PO SCH (06:36)
[2019-04-22] MEDS: LEVOTHYROXINE 75 MCG TAB PO SCH (06:36)
[2019-04-22] MEDS: LEVOTHYROXINE 100 MCG TAB PO SCH (06:36)
[2019-04-22 07:02] LABS: Calcium 9.3 mg/dL (8.4-10.2); Potassium 4.8 mmol/L (3.5-5.1)
[2019-04-22] MEDS: SYMBICORT 160-4.5 MCG INHALER INHALATION SCH ×2 (07:55→20:02)
[2019-04-22] MEDS ORDERED: ASPIRIN 325 MG TAB PO SCH (09:00)
[2019-04-22] MEDS ORDERED: FUROSEMIDE 40 MG TAB PO SCH (09:00)
[2019-04-22] MEDS: CYANOCOBALAMIN 500 MCG TAB PO SCH (09:00)
[2019-04-22] MEDS: CLOPIDOGREL 75 MG TAB PO SCH (09:00)
[2019-04-22] MEDS ORDERED: SPIRONOLACTONE 25 MG TAB PO SCH (09:00)
[2019-04-22] MEDS: FERROUS SULFATE 325 MG TAB PO SCH ×2 (09:01→20:37)
[2019-04-22] MEDS: ASPIRIN 81 MG PO SCH (09:01)
[2019-04-22] MEDS: METOPROLOL TARTRATE 25 MG TAB PO SCH ×2 (09:01→20:44)
[2019-04-22] MEDS: AMIODARONE 200 MG TAB PO SCH (09:01)
--- NOTE | 2019-04-22 09:35 | P.CRDCN ---
History of Present Illness Consult date: 04/22/19 Requesting physician: Jovanni Finney Consult reason: congestive heart failure Chief complaint: Shortness of breath History of present illness: This is a pleasant 68-year-old gentleman who follows regularly with Dr. Lindo in the office. He has a known history of coronary artery disease with prior left main stenting, carotid artery disease, paroxysmal atrial fibrillation, ischemic cardio myopathy with prior AICD implantation, hypothyroidism, COPD, chronic anemia and chronic kidney disease who presents to the hospital with symptoms of shortness of breath of approximately one day dura tion. His chest x-ray shows mild pulmonary interstitial edema consistent with heart failure. EKG on presentation here showed sinus rhythm with first-degree AV block and a right bundle branch block pattern. Blood pressure on arrival here 114/60 with a heart rate in the 80s, 87% on 3 L of oxygen. I pressure this morning 110/60 with a heart rate in the 80s, 94% on 3 L of oxygen. White blood cell count is normal, hemoglobin 11.8, platelet count 231. Sodium on admission 133, potassium 5.5, BUN 31 and creatinine 1.4. Troponin 0.029, 0.030, BNP level 14,000. At the time of my examination this morning, patient is lying flat in bed, his is at bedside, he still complaining of feeling short of breath, patient was initiated on IV Lasix in the emergency room. He is diuresing moderate amounts. Past Medical History Past Medical History: Heart Failure, COPD, Hypertension, Myocardial Infarction ([place]), Renal Disease, Thyroid Disorder, Hypertension, Myocardial Infarction ([place]), Thyroid Disorder Additional Past Medical History / Comment(s): Coronary artery disease, history of severe ischemic cardiomyopathy with systolic heart failure and ejection fraction of 30-35%, sick sinus syndrome, history of coronary artery disease, hypothyroidism, cataracts, chronic anemia, chronic kidney disease Last Myocardial Infarction Date:: 06/24/15 History of Any Multi-Drug Resistant Organisms: C-DIFF, MRSA Date of last positivie culture/infection: 2015 MDRO Source:: sacral wound Past Surgical History: Heart Catheterization With Stent, Orthopedic Surgery, Pacemaker Additional Past Surgical History / Comment(s): 1996 L shoulder rotator cuff surgery, colonoscopy with benign polypectomy.heart stent x1, sacral wound debridement with wound vac in 09/2015 Past Anesthesia/Blood Transfusion Reactions: No Reported Reaction Additional Past Anesthesia/Blood Transfusion Reaction / Comment(s): Pt has never received blood. Date of Last Stent Placement:: 06/2015 Type of Cardiac Device: Permanent Pacemaker Device Placement Date:: 11/25/2016 Past Psychological History: No Psychological Hx Reported Smoking Status: Former smoker Past Alcohol Use History: None Reported Past Drug Use History: None Reported - Past Family History Father Family Medical History: Cancer, Coronary Artery Disease (CAD), Myocardial Infa rction ([place]) Additional Family Medical History / Comment(s): Father at age 86yrs. He had a CABG. Bladder cancer. Mother Family Medical History: Cancer Additional Family Medical History / Comment(s): Mother in her 30's of breast cancer. Medications and Allergies Home Medications Medication Instructions Recorded Confirmed Type Multivitamins, Thera [Multivitamin 1 tab PO HS 06/24/15 04/21/19 History (formulary)] Aspirin 81 mg PO DAILY 09/04/15 04/21/19 History Atorvastatin [Lipitor] 40 mg PO HS tab 09/22/15 04/21/19 Rx Clopidogrel [Plavix] 75 mg PO DAILY tab 09/22/15 04/21/19 Rx Budesonide/Formoterol Fumarate 2 puff INHALATION RT-BID 09/29/15 04/21/19 History [Symbicort 160-4.5 Mcg Inhaler] Ferrous Sulfate [Iron (65 MG 325 mg PO BID 10/04/15 04/21/19 History Elemental)] Ipratropium-Albuterol Nebulize 3 ml INHALATION RT-QID PRN 10/29/16 04/21/19 History [Duoneb 0.5 mg-3 mg/3 ml Soln] Pantoprazole [Protonix] 40 mg PO DAILY 10/29/16 04/21/19 History Docusate [Colace] 100 mg PO HS 12/13/17 04/21/19 History Folic Acid 0.8 mg PO HS 12/13/17 04/21/19 History Metoprolol Tartrate [Lopressor] 25 mg PO BID 12/13/17 04/21/19 History Procrit(Unknown Dose) 1 dose SQ Q21D PRN 12/13/17 04/21/19 History Albuterol Inhaler [Ventolin Hfa 1 - 2 puff INHALATION RT-Q6H PRN 02/16/19 04/21/19 History Inhaler] Allopurinol [Zyloprim] 100 mg PO HS 02/16/19 04/21/19 History Cyanocobalamin (Vitamin B-12) 1,000 mcg PO DAILY 02/16/19 04/21/19 History [Vitamin B-12] L.acidoph,Paracasei, B.lactis 1 cap PO HS 02/16/19 04/21/19 History [Probiotic] Cholecalciferol [Vitamin D3 (25 1,000 unit PO HS 02/20/19 04/21/19 History Mcg = 1000 Iu)] Levothyroxine Sodium [Synthroid] 175 mcg PO DAILY 02/20/19 04/21/19 History Amiodarone [Cordarone] 200 mg PO DAILY #30 tab 02/22/19 04/21/19 Rx Furosemide [Lasix] 40 mg PO DAILY tab 02/22/19 04/21/19 Rx Spironolactone [Aldactone] 12.5 mg PO DAILY #30 tablet 02/22/19 04/21/19 Rx Allergies Allergy/AdvReac Type Severity Reaction Status Date / Time haloperidol [From Haldol] AdvReac Confusion Verified 04/21/19 15:14 Physical Exam Vitals: Vital Signs Temp Pulse Pulse Resp BP BP Pulse Ox 04/22/19 08:10 84 04/22/19 08:00 98.1 F 86 18 109/55 94 L 04/22/19 07:55 84 04/22/19 05:07 98.4 F 82 15 142/67 97 04/22/19 03:14 84 04/22/19 03:06 84 04/22/19 01:04 98.7 F 82 18 123/63 94 L 04/21/19 21:27 16 04/21/19 21:19 98.6 F 86 16 117/71 94 L 04/21/19 19:21 82 04/21/19 19:12 80 04/21/19 19:00 16 04/21/19 17:19 98.7 F 87 18 123/77 93 L 04/21/19 15:43 99.3 F 85 18 137/70 93 L 04/21/19 15:31 80 04/21/19 15:25 84 04/21/19 14:52 93 L 04/21/19 14:38 98.8 F 85 26 H 114/67 87 L Intake and Output 04/21/19 04/22/19 04/22/19 22:59 06:59 14:59 Intake Total 100 Output Total 175 402 250 Balance -175 -302 -250 Intake: Intake, IV Titration 100 Amount cefTRIAXone 1 gm In 100 Sodium Chloride 0.9% 50 ml @ 100 mls/hr IVPB Q24HR [facility] Rx#:[id number] Output: Urine 175 402 250 Other: Voiding Method Urinal Urinal Urinal # Voids 1 2 1 Weight 64.5 kg PHYSICAL EXAMINATION: GENERAL: 68-year-old gentleman in no acute distress at the time of my examination HEENT: Head is atraumatic, normocephalic. Pupils equal, round. Sclera anicteric. Conjunctiva are clear. Mucous membranes of the mouth are moist. Neck is supple. There is elevated jugular venous pressure. No carotid bruit is heard. HEART EXAMINATION: Heart S1 S2 1 systolic murmur is heard CHEST EXAMINATION: Lungs reveal diminished air entry to bilateral bases ABDOMEN: Soft, nontender. Bowel sounds are heard. No organomegaly noted. EXTREMITIES: 2+ peripheral pulses with no evidence of peripheral edema and no calf tenderness noted. NEUROLOGIC patient is awake, alert and oriented 3 . . Results 04/21/19 14:55 04/22/19 06:39 Cardiac Enzymes 04/21/19 04/21/19 04/21/19 Range/Units 14:55 14:55 21:21 AST 38 (17-59) U/L Troponin I 0.029 0.030 (0.000-0.034) ng/mL Coagulation 04/21/19 Range/Units 14:55 PT 9.9 (9.0-12.0) sec APTT 24.6 (22.0-30.0) sec CBC 04/21/19 Range/Units 14:55 WBC 6.1 (3.8-10.6) k/uL RBC 3.57 L (4.30-5.90) m/uL Hgb 11.8 L (13.0-17.5) gm/dL Hct 38.0 L (39.0-53.0) % Plt Count 231 (150-450) k/uL Comprehensive Metabolic Panel 04/21/19 04/22/19 Range/Units 14:55 06:39 Sodium 133 L 137 (137-145) mmol/L Potassium 5.5 H 4.8 (3.5-5.1) mmol/L Chloride 91 L 92 L (98-107) mmol/L Carbon Dioxide 37 H 40 H (22-30) mmol/L BUN 31 H 33 H (9-20) mg/dL Creatinine 1.42 H 1.64 H (0.66-1.25) mg/dL Glucose 138 H 87 (74-99) mg/dL Calcium 9.1 9.3 (8.4-10.2) mg/dL AST 38 (17-59) U/L ALT 31 (21-72) U/L Alkaline Phosphatase 76 (38-126) U/L Total Protein 6.8 (6.3-8.2) g/dL Albumin 3.6 (3.5-5.0) g/dL Current Medications Generic Name Dose Route Start Last Admin Trade Name Freq PRN Reason Stop Dose Admin Albuterol/Ipratropium 3 ml 04/21/19 17:24 04/22/19 07:55 Duoneb 0.5 Mg-3 Mg/3 Ml Soln INHALATION 3 ml RT-QID PRN Administration Dyspnea Allopurinol 100 mg 04/21/19 21:00 04/21/19 21:24 Zyloprim PO 100 mg HS FLORES Administration Amiodarone HCl 200 mg 04/22/19 09:00 04/22/19 09:01 Cordarone PO 200 mg DAILY FLORES Administration Aspirin 81 mg 04/22/19 09:00 04/22/19 09:01 Aspirin PO 81 mg DAILY FLORES Administration Atorvastatin Calcium 40 mg 04/21/19 21:00 04/21/19 21:23 Lipitor PO 40 mg HS FLORES Administration Budesonide/Formoterol Fumarate 2 puff 04/21/19 20:00 04/22/19 07:55 Symbicort 160-4.5 Mcg Inhaler INHALATION 2 puff RT-BID FLORES Administration Cholecalciferol 1,000 unit 04/21/19 21:00 04/21/19 21:24 Vitamin D3 (25 Mcg = 1000 Iu) PO 1,000 unit HS FLORES Administration Clopidogrel Bisulfate 75 mg 04/22/19 09:00 04/22/19 09:00 Plavix PO 75 mg DAILY FLORES Administration Cyanocobalamin 1,000 mcg 04/22/19 09:00 04/22/19 09:00 Vitamin B-12 PO 1,000 mcg DAILY FLORES Administration Docusate Sodium 100 mg 04/21/19 21:00 04/21/19 21:23 Colace PO 100 mg HS FLORES Administration Ferrous Sulfate 325 mg 04/21/19 21:00 04/22/19 09:01 Feosol PO 325 mg BID FLORES Administration Folic Acid 1 mg 04/21/19 21:00 04/21/19 21:23 Folic Acid PO 1 mg HS FLORES Administration Furosemide 20 mg 04/22/19 01:00 04/22/19 09:06 Lasix IV 20 mg Q8H [facility]ORES Administration Sodium Chloride 1,000 mls @ 20 mls/hr 04/21/19 15:09 04/21/19 15:42 Saline 0.9% IV 04/22/19 15:08 20 mls/hr .Q24H STA Administration Sodium Chloride 1,000 mls @ 20 mls/hr 04/21/19 17:00 04/21/19 20:02 Saline 0.9% IV Not Given .Q24H FLORES Ceftriaxone Sodium 1 gm/ 50 mls @ 100 mls/hr 04/21/19 18:15 04/22/19 09:01 Sodium Chloride IVPB 100 mls/hr Q24HR [facility]OR[facility] Administration Lactobacillus Acidoph/Bulgaricus 1 each 04/21/19 21:00 04/21/19 21:24 Lactinex PO 1 each HS FLORES Administration Levothyroxine Sodium 100 mcg 04/22/19 06:30 04/22/19 06:36 Synthroid PO 100 mcg 0630 FLORES Administration Levothyroxine Sodium 75 mcg 04/22/19 06:30 04/22/19 06:36 Synthroid PO 75 mcg 0630 FLORES Administration Metoprolol Tartrate 25 mg 04/21/19 21:00 04/22/19 09:01 Lopressor PO 25 mg BID FLORES Administration Multivitamins 1 each 04/21/19 21:00 04/21/19 21:24 Theragran PO 1 each HS FLORES Administration Pantoprazole Sodium 40 mg 04/22/19 07:30 04/22/19 06:36 Protonix PO 40 mg [id number] FLORES Administration Intake and Output 04/21/19 04/22/19 04/22/19 22:59 06:59 14:59 Intake Total 100 Output Total 175 402 250 Balance -175 302 -250 Intake: Intake, IV Titration 100 Amount cefTRIAXone 1 gm In 100 Sodium Chloride 0.9% 50 ml @ 100 mls/hr IVPB Q24HR [facility] Rx#:[id number] Output: Urine 175 402 250 Other: Voiding Method Urinal Urinal Urinal # Voids 1 2 1 Weight 64.5 kg 04/21/19 14:55 04/22/19 06:39 EKG Interpretations (text) EKG shows a sinus rhythm with first-degree AV block and right bundle branch bloc k pattern Assessment and Plan Plan: Assessment and plan #1 systolic congestive heart failure acute on chronic #2 ischemic cardiomyopathy with prior AICD implantation #3 coronary artery disease with prior left main stenting #4 COPD #5 hypertension #6 chronic kidney disease #7 hyperlipidemia #8 hypothyroidism #9 paroxysmal atrial fibrillation #10 chronic anemia Plan We will continue current dose of IV Lasix, monitoring intake and output along with daily weights and daily lytes BUN and creatinine. We will obtain a repeat echocardiogram with Doppler study. Further recommendations to follow. DNP note has been reviewed, I agree with a documented findings and plan of care. Patient was seen and examined.
--- NOTE | 2019-04-22 12:47 | P.PN ---
Subjective Progress Note Date: 04/22/19 (Short of breath) Principal diagnosis: Principal diagnosis: #1 systolic congestive heart failure acute on the top of chronic. #2 COPD exacerbation #3 hypothyroidism. #4 cardiomyopathy with poor ejection fraction. Dictation on progress note date of service 04/22/2019 Patient seen and evaluated. Patient seen by cardiology and pulmonary. Subjective patient feel today also talk awake alert but he is complaining of insomnia at night. Objective: Vital sign is stable and shows of breath has improved. Head was normocephalic and atraumatic, he had dentures and able to eat but he c ould not like the food and his will bring him some " Neck was supple no JVD no thyromegaly no lymphadenopathy trachea midline. Chest was increased anteroposterior diameter he had a minimal rhonchi's on the previous with a significant improvement. Heart: Irregular irregularity with atrial fibrillation paroxysmal. With the underlying cardiomegaly and cardiomyopathy he has a pacemaker with AICD due to his history of arrhythmia. Abdomen soft positive bowel sounds no tenderness. Extremities: No edema and positive pulses. Neurologically intact and no lateralizing sign. Chronic kidney disease stage III still he used to be a stage IV. Assessment: #1 systolic congestive heart failure acute on the top of chronic with the impaired ejection fraction #2 mild exacerbation of COPD. #3 underlying fatigued and deconditioned. Gen. improvement. Plan: We'll continue the current treatment and will continue cardiology monitoring and otherwise, patient will have echocardiogram to assess his left ventricular function. And that he is diuresed by IV Lasix. Check again his electrolytes in a.m. Patient on antibiotic for tracheobronchitis with the cough and sputum production. Objective - Vital Signs Vital signs: Vital Signs Temp 98.1 F 04/22/19 08:00 Pulse 80 04/22/19 11:49 Resp 18 04/22/19 08:00 BP 109/55 04/22/19 08:00 Pulse Ox 94 L 04/22/19 08:00 Intake & Output 04/21/19 04/22/19 04/22/19 18:59 06:59 18:59 Intake Total 100 Output Total 175 402 250 Balance -175 -302 -250 Weight 63.957 kg 64.5 kg Intake: Intake, IV Titration 100 Amount cefTRIAXone 1 gm In 100 Sodium Chloride 0.9% 50 ml @ 100 mls/hr IVPB Q24HR [facility] Rx#:[id number] Output: Urine 175 402 250 Other: Voiding Method Urinal Urinal # Voids 1 2 1 - Labs CBC & Chem 7: 04/21/19 14:55 04/22/19 06:39 Labs: Abnormal Lab Results - Last 24 Hours (Table) 04/21/19 04/21/19 04/22/19 Range/Units 14:55 14:55 06:39 RBC 3.57 L (4.30-5.90) m/uL Hgb 11.8 L (13.0-17.5) gm/dL Hct 38.0 L (39.0-53.0) % MCV 106.3 H (80.0-100.0) fL MCHC 30.9 L (31.0-37.0) g/dL RDW 17.0 H (11.5-15.5) % Lymphocytes # 0.5 L (1.0-4.8) k/uL Sodium 133 L (137-145) mmol/L Potassium 5.5 H (3.5-5.1) mmol/L Chloride 91 L 92 L (98-107) mmol/L Carbon Dioxide 37 H 40 H (22-30) mmol/L BUN 31 H 33 H (9-20) mg/dL Creatinine 1.42 H 1.64 H (0.66-1.25) mg/dL Glucose 138 H (74-99) mg/dL
[2019-04-22 13:54] VITALS: BMI 22.2
--- NOTE | 2019-04-22 15:37 | P.CNPUL ---
History of Present Illness Consult date: 04/22/19 Reason for consult: dyspnea History of present illness: This is another hospitalization for this 68-year-old male patient is coming in with increased exertional dyspnea, orthopnea and paroxysmal nocturnal dyspnea. Denies having any chest pain. The patient is known to have CHF with systolic heart failure and an ejection fraction of 30% and the patient has a history of sick sinus syndrome and chronic atopic incompetence along with AV darnell disease and he has a dual chamber AICD placed approximately 2 years ago. He has also in attendance of becoming hypokalemic he was maintained and Aldactone. He is known to have coronary artery disease with previous coronary intervention and stenting. He has proximal atrial fibrillation. His chronic stage III kidney disease. He has COPD with an FEV1 of 22% of predicted. As such as very poor functional performance status at baseline. During this current admission, the patient's chest x-rays showing pulmonary edema/CHF. His proBNP level was 14,000. Troponins are 0.02 and 0.03 respectively 2 and the creatinine is at 1.4-1.6. The patient has no chest pain. No angina. No palpitation. No pleurisy. No hemoptysis. No syncope. He is on Lasix and he is responding. He is also on DuoNeb nebulized treatments around the clock. He is on oxygen at all times. He is a ex-smoker. Review of Systems Constitutional: Reports fatigue, Reports poor appetite, Reports weakness which has been progressively getting worse and it's increasing along with the fatigue. Eyes: denies as per HPI, denies blurred vision, denies bulging eye, denies decreased vision, denies diplopia, denies discharge, denies dry eye, denies irritation, denies itching, denies pain, denies photophobia, denies loss of peripheral vision, denies loss of vision, denies tunnel vision/blind spots Ears: deny: decreased hearing, ear discharge, earache, tinnitus Ears, nose, mouth and throat: Denies headache, Denies sore throat Cardiovascular: Reports decreased exercise tolerance, Reports dyspnea on exertion, Reports shortness of breath, he has also orthopnea. No significant lower oximetry edema. Respiratory: Reports cough, Reports cough with sputum, Reports dyspnea Gastrointestinal: Reports as per HPI (Patient underwent a right inguinal hernia repair), Denies abdominal pain, Denies diarrhea, Denies nausea, Denies vomiting Genitourinary: Reports as per HPI Musculoskeletal: Reports as per HPI Musculoskeletal: absent: ankle pain, ankle stiffness, ankle swelling Integumentary: Reports as per HPI, Reports wounds (Right coronary which is clean) Neurological: Reports as per HPI, Reports weakness Psychiatric: Reports as per HPI Endocrine: Reports as per HPI, Reports fatigue Hematologic/Lymphatic: Reports as per HPI Allergic/Immunologic: Reports as per HPI, no significant ALLERGIES. Past Medical History Past Medical History: Heart Failure, COPD, Hypertension, Myocardial Infarction ([place]), Renal Disease, Thyroid Disorder, Hypertension, Myocardial Infarction ([place]), Thyroid Disorder Additional Past Medical History / Comment(s): Coronary artery disease, history of severe ischemic cardiomyopathy with systolic heart failure and ejection fraction of 30-35%, sick sinus syndrome, history of coronary artery disease, hypothyroidism, cataracts, chronic anemia, chronic kidney disease, history of insertion of a biventricular dual-chamber AICD, paroxysmal atrial fibrillation, chronic anemia, hypertension Last Myocardial Infarction Date:: 06/24/15 History of Any Multi-Drug Resistant Organisms: C-DIFF, MRSA Date of last positivie culture/infection: 2015 MDRO Source:: sacral wound Past Surgical History: Heart Catheterization With Stent, Orthopedic Surgery, Pacemaker (Defibrillator dual-chamber AICD placement) Additional Past Surgical History / Comment(s): 1996 L shoulder rotator cuff surgery, colonoscopy with benign polypectomy.heart stent x1, sacral wound de bridement with wound vac in 09/2015 Past Anesthesia/Blood Transfusion Reactions: No Reported Reaction Additional Past Anesthesia/Blood Transfusion Reaction / Comment(s): Pt has never received blood. Date of Last Stent Placement:: 06/2015 Type of Cardiac Device: Permanent Pacemaker Device Placement Date:: 11/25/2016 Past Psychological History: No Psychological Hx Reported Smoking Status: Former smoker Past Alcohol Use History: None Reported Past Drug Use History: None Reported - Past Family History Father Family Medical History: Cancer, Coronary Artery Disease (CAD), Myocardial Infarction ([place]) Additional Family Medical History / Comment(s): Father at age 86yrs. He had a CABG. Bladder cancer. Mother Family Medical History: Cancer Additional Family Medical History / Comment(s): Mother in her 30's of breast cancer. Medications and Allergies Home Medications Medication Instructions Recorded Confirmed Type Multivitamins, Thera [Multivitamin 1 tab PO HS 06/24/15 04/21/19 History (formulary)] Aspirin 81 mg PO DAILY 09/04/15 04/21/19 History Atorvastatin [Lipitor] 40 mg PO HS tab 09/22/15 04/21/19 Rx Clopidogrel [Plavix] 75 mg PO DAILY tab 09/22/15 04/21/19 Rx Budesonide/Formoterol Fumarate 2 puff INHALATION RT-BID 09/29/15 04/21/19 History [Symbicort 160-4.5 Mcg Inhaler] Ferrous Sulfate [Iron (65 MG 325 mg PO BID 10/04/15 04/21/19 History Elemental)] Ipratropium-Albuterol Nebulize 3 ml INHALATION RT-QID PRN 10/29/16 04/21/19 History [Duoneb 0.5 mg-3 mg/3 ml Soln] Pantoprazole [Protonix] 40 mg PO DAILY 10/29/16 04/21/19 History Docusate [Colace] 100 mg PO HS 12/13/17 04/21/19 History Folic Acid 0.8 mg PO HS 12/13/17 04/21/19 History Metoprolol Tartrate [Lopressor] 25 mg PO BID 12/13/17 04/21/19 History Procrit(Unknown Dose) 1 dose SQ Q21D PRN 12/13/17 04/21/19 History Albuterol Inhaler [Ventolin Hfa 1 - 2 puff INHALATION RT-Q6H PRN 02/16/19 04/21/19 History Inhaler] Allopurinol [Zyloprim] 100 mg PO HS 02/16/19 04/21/19 History Cyanocobalamin (Vitamin B-12) 1,000 mcg PO DAILY 02/16/19 04/21/19 History [Vitamin B-12] L.acidoph,Paracasei, B.lactis 1 cap PO HS 02/16/19 04/21/19 History [Probiotic] Cholecalciferol [Vitamin D3 (25 1,000 unit PO HS 02/20/19 04/21/19 History Mcg = 1000 Iu)] Levothyroxine Sodium [Synthroid] 175 mcg PO DAILY 02/20/19 04/21/19 History Amiodarone [Cordarone] 200 mg PO DAILY #30 tab 02/22/19 04/21/19 Rx Furosemide [Lasix] 40 mg PO DAILY tab 02/22/19 04/21/19 Rx Spironolactone [Aldactone] 12.5 mg PO DAILY #30 tablet 02/22/19 04/21/19 Rx Allergies Allergy/AdvReac Type Severity Reaction Status Date / Time haloperidol [From Haldol] AdvReac Confusion Verified 04/21/19 15:14 Physical Exam Vitals: Vital Signs Temp Pulse Pulse Resp BP BP Pulse Ox 04/22/19 12:00 79 17 99/50 93 L 04/22/19 11:49 80 04/22/19 11:37 84 04/22/19 08:10 84 04/22/19 08:00 98.1 F 86 18 109/55 94 L 04/22/19 07:55 84 04/22/19 05:07 98.4 F 82 15 142/67 97 04/22/19 03:14 84 04/22/19 03:06 84 04/22/19 01:04 98.7 F 82 18 123/63 94 L 04/21/19 21:27 16 04/21/19 21:19 98.6 F 86 16 117/71 94 L 04/21/19 19:21 82 04/21/19 19:12 80 04/21/19 19:00 16 04/21/19 17:19 98.7 F 87 18 123/77 93 L 04/21/19 15:43 99.3 F 85 18 137/70 93 L Intake and Output 04/22/19 04/22/19 04/22/19 06:59 14:59 22:59 Intake Total 100 120 Output Total 402 250 Balance -302 -130 Intake: Intake, IV Titration 100 Amount cefTRIAXone 1 gm In 100 Sodium Chloride 0.9% 50 ml @ 100 mls/hr IVPB Q24HR [facility] Rx#:[id number] Oral 120 Output: Urine 402 250 Other: Voiding Method Urinal Urinal # Voids 2 1 Weight 64.5 kg 64.5 kg Gen. appearance, comfortable likely distress Head exam was generally normal. There was no scleral icterus or corneal arcus. Mucous membranes were moist. Neck was supple and without jugular venous distension, thyromegaly, or carotid bruits. Carotids were easily palpable bilaterally. There was no adenopathy. Lungs sounds are diminished and correct in the left lung base along with some egophony, and there are some diminished breath on the lung bases along with some bibasilar crackles. Cardiac exam revealed the PMI to be normally situated and sized. The rhythm was regular and no extrasystoles were noted during several minutes of auscultation. The first and second heart sounds were normal and physiologic splitting of the second heart sound was noted. There were no murmurs, rubs, clicks, or gallops. Pacemaker pocket is over the left anterior chest area Abdominal exam revealed normal bowel sounds. The abdomen was soft, non-tender, and without masses, organomegaly, or appreciable enlargement of the abdominal aorta. Right inguinal hernia wound is dry clean and intact at this point in time. No pain. No swelling. No drainage. Examination of the extremities revealed easily palpable radial, femoral and pedal pulses. There was no cyanosis, clubbing or edema. Examination of the skin revealed no evidence of significant rashes, suspicious appearing nevi or other concerning lesions. Neurologically is awake and alert and there is no focal neurological deficits. Results - Laboratory Findings CBC and BMP: 04/21/19 14:55 04/22/19 06:39 PT/INR, D-dimer PT 9.9 sec (9.0-12.0) 04/21/19 14:55 INR 0.9 (<1.2) 04/21/19 14:55 Abnormal lab findings: Abnormal Labs 04/21/19 04/21/19 04/22/19 14:55 14:55 06:39 RBC 3.57 L Hgb 11.8 L Hct 38.0 L MCV 106.3 H MCHC 30.9 L RDW 17.0 H Lymphocytes # 0.5 L Sodium 133 L Potassium 5.5 H Chloride 91 L 92 L Carbon Dioxide 37 H 40 H BUN 31 H 33 H Creatinine 1.42 H 1.64 H Glucose 138 H - Diagnostic Findings Chest x-ray: image reviewed Assessment and Plan Plan: 1 acute decompensation of the chronic systolic heart failure. The patient is an ejection fraction of less than 30% along with secondary pulmonary hypertension. The patient is presenting with acute heart failure/pulmonary edema and his responding to diuretics. 2.7 nonelevated. EKG is Is nonischemic and is showing a sinus rhythm with a first-degree AV block and a RBB pattern along with old anteroseptal infarct 2 severe COPD with FEV1 of 22% of predicted 3 chronic hypoxic respiratory failure secondary to above 4 history of sick sinus syndrome 5 history of biventricular AICD placement regarding his severe cardiomyopathy 6 chronic stage III kidney disease 7 coronary artery disease with previous coronary intervention and stenting 8 paroxysmal atrial fibrillation 9 hypertension 10 hypothyroidism, TSH is within normal limits at 0.8. 11 osteoarthritis Plan In terms of his COPD, the patient is nonsmoker. His COPD is not exacerbating at this point in time. I'm going to continue the Symbicort and use DuoNeb nebulize d treatments around the clock. The patient be given IV Lasix 20 mg every 8 hours. Monitor renal function. Monitor fluid balance. Monitor electrolytes. Keep the IV fluids of minimal at KVO. May need to repeat echocardiogram. Cardiology consultation. We'll continue the metoprolol. Consider the addition of Aldactone. We will follow.
[2019-04-22] MEDS: SODIUM CHLORIDE 0.9% 1,000 ML IV SCH (17:41)
--- NOTE | 2019-04-22 18:20 | ECHOF ---
Referral Reason:chf MEASUREMENTS -------- HEIGHT: 170.2 cm WEIGHT: 64.4 kg BP: 109/55 IVSd: 1.3 cm (0.6 - 1.1) LVIDd: 6.4 cm (3.9 - 5.3) LVPWd: 1.1 cm (0.6 - 1.1) IVSs: 1.5 cm LVIDs: 5.8 cm LVPWs: 1.2 cm LA Diam: 4.3 cm (2.7 - 3.8) LAESV Index (A-L): 51.01 ml/m Ao Diam: 2.8 cm (2.0 - 3.7) LA Diam: 4.8 cm (2.7 - 3.8) AV Cusp: 1.7 cm (1.5 - 2.6) EPSS: 2.0 cm MV E Cody: 0.92 m/s MV DecT: 139 ms MV A Cody: 0.70 m/s MV E/A Ratio: 1.31 RAP: 5.00 mmHg RVSP: 61.50 mmHg MV EF SLOPE: 41.53 mm/s (70 - 150) MV EXCURSION: 18.74 mm (> 18.000) FINDINGS -------- Paced rhythm. This was a technically good study. The left ventricle is moderately dilated. There is borderline concentric left ventricular hypertrop hy. There is moderate global hypokinesis of LV . Overall left ventricular systolic function is mo derate-severely impaired with, an EF between 30 - 35 %. Both the mean atrial pressure as well as th e LV end diastolic pressure is elevated 31.40. The right ventricle is normal in size. The left atrium is markedly dilated. LA is severely dilated >40 ml/m2 The right atrial size is normal. There is mild aortic valve sclerosis. There is no evidence of aortic regurgitation. Mild mitral annular calcification present. Moderate mitral regurgitation is present. Mild tricuspid regurgitation present. There is moderate pulmonary hypertension. The right ventric ular systolic pressure, as measured by Doppler, is 61.50mmHg. There is no pulmonic regurgitation present. The aortic root size is normal. The inferior vena cava is mildly dilated. There is no pericardial effusion. CONCLUSIONS -------- 1. Paced rhythm. 2. This was a technically good study. 3. The left ventricle is moderately dilated. 4. There is moderate global hypokinesis of LV . 5. Overall left ventricular systolic function is moderate-severely impaired with, an EF between 30 - 35 %. 6. Both the mean atrial pressure as well as the LV end diastolic pressure is elevated 31.40. 7. The right ventricle is normal in size. 8. The left atrium is markedly dilated. 9. LA is severely dilated >40 ml/m2 10. The right atrial size is normal. 11. There is mild aortic valve sclerosis. 12. Mild mitral annular calcification present. 13. Moderate mitral regurgitation is present. 14. Mild tricuspid regurgitation present. 15. There is moderate pulmonary hypertension. 16. The right ventricular systolic pressure, as measured by Doppler, is 61.50mmHg. 17. There is no pulmonic regurgitation present. 18. The aortic root size is normal. 19. The inferior vena cava is mildly dilated. 20. There is no pericardial effusion. RETIREMENT BENEFITS SPECIALIST: Beckie Hanley RDCS
[2019-04-22] MEDS: ATORVASTATIN 40 MG TAB PO SCH (20:36)
[2019-04-22] MEDS: ALLOPURINOL 100 MG TAB PO SCH (20:36)
[2019-04-22] MEDS: MULTIVITAMINS, THERA 1 EACH TAB PO SCH (20:37)
[2019-04-22] MEDS: FOLIC ACID 1 MG TAB PO SCH (20:37)
[2019-04-22] MEDS: CHOLECALCIFEROL 1,000 UNIT TAB PO SCH (20:37)
[2019-04-22] MEDS: LACTOBACILLUS ACIDOPH & BULGAR 1 EACH PACKET PO SCH (20:37)
[2019-04-22] MEDS: DOCUSATE 100 MG CAP PO SCH (20:37)
[2019-04-23] MEDS: FUROSEMIDE 10 MG/ML 2 ML VIAL IV SCH ×4 (01:52→23:30)
[2019-04-23] MEDS: IPRATROPIUM-ALBUTEROL 3 ML NEB INHALATION PRN ×5 (03:37→19:15)
[2019-04-23] MEDS: LEVOTHYROXINE 100 MCG TAB PO SCH (06:37)
[2019-04-23] MEDS: PANTOPRAZOLE 40 MG TABLET PO SCH (06:37)
[2019-04-23] MEDS: LEVOTHYROXINE 75 MCG TAB PO SCH (06:37)
[2019-04-23] MEDS: SYMBICORT 160-4.5 MCG INHALER INHALATION SCH ×2 (07:24→19:15)
[2019-04-23 07:26] LABS: Anisocytosis Slight; Basophils % (A) 0 %; Eosinophils # (A) 0.1 k/uL (0-0.7); Eosinophils % (A) 2 %; HCT 29.8 % (39.0-53.0); Hypochromasia Moderate; Lymphocytes # (A) 0.6 k/uL (1.0-4.8); Lymphocytes % (A) 8 %; MCH 32.8 pg (25.0-35.0); MCV 105.8 fL (80.0-100.0); Macrocytosis Moderate; Mean Platelet Volume 7.2; Monocytes # (A) 0.6 k/uL (0-1.0); Monocytes % (A) 8 %; Neutrophils # (A) 5.5 k/uL (1.3-7.7); Neutrophils % (A) 79 %; Platelet Count 304 k/uL (150-450); RBC 2.82 m/uL (4.30-5.90); RDW 16.8 % (11.5-15.5); WBC 6.9 k/uL (3.8-10.6)
[2019-04-23 07:29] LABS: HGB 9.2 gm/dL (13.0-17.5)
[2019-04-23 07:34] LABS: Calcium 9.1 mg/dL (8.4-10.2); Potassium 4.4 mmol/L (3.5-5.1); Uric Acid 6.5 mg/dL (3.5-8.5)
[2019-04-23] MEDS: AMIODARONE 200 MG TAB PO SCH (08:48)
[2019-04-23] MEDS: FERROUS SULFATE 325 MG TAB PO SCH ×2 (08:48→20:07)
[2019-04-23] MEDS: CLOPIDOGREL 75 MG TAB PO SCH (08:48)
[2019-04-23] MEDS: CYANOCOBALAMIN 500 MCG TAB PO SCH (08:48)
[2019-04-23] MEDS: ASPIRIN 81 MG PO SCH (08:49)
[2019-04-23] MEDS: METOPROLOL TARTRATE 25 MG TAB PO SCH ×2 (08:49→20:06)
[2019-04-23] MEDS ORDERED: ZOLPIDEM 5 MG TAB PO PRN (09:25)
--- NOTE | 2019-04-23 09:44 | P.PN ---
Subjective Progress Note Date: 04/23/19 Progress note date of service 04/23/[address] Finney. Patient seen and evaluated discussed with him and seen by Dr. Lindo Vital sign: Temperature 90.8 oral heart rate 92 regular was atrial fibrillation respiratory rate 17 and blood pressure 108/68 with a pulse ox 93% on 3 L nasal cannula. He still not feeling well his improved his shortness of breath he still on antibiotic for tracheobronchitis and COPD exacerbation and cough and phlegm.. Laboratory white count 6.9 however hemoglobin drop to 9.2 and the hematocrit 29.8 with the MCV 105.8. With the underlying moderate hypochromasia Sandi cytosis, and macrocytosis. Chemistry profile indicating sodium 137 and potassium 4.4 and crit of 11 diuretics side is 40 and creatinine improving to 1.34 with a BUN of 32. And the uric acid 6.4 estimated glomerular filtration rate 55 stable renal function. Patient has anemia was treated with Procrit by Ro ray with the underlying ptosis On examination patient is conscious alert oriented able to move. His HEENT was negative no icterus and the chest is still presence of scattered rhonchi's and will be checking a chest x-ray as well today. And neck was supple no JVD no thyromegaly no lymphadenopathy trachea midline. The chest and has radiated bilaterally compensation has been improving of the heart with the underlying decompensation with ischemic cardiomyopathy and ejection fraction was 30%. He had a hyper kalemia which is corrected now to 4.4 with the removal of the Aldactone. Heart paroxysmal atrial fibrillation with a decompensation. Abdomen is soft positive bowel sounds Extremities no edema and Neurologically stable no lateralizing sign. Assessment: Acute congestive heart failure systolic on the top of chronic with the underlying decompensation associated with shortness of breath. Tracheobronchitis with the coughing. COPD exacerbation Anemia. Patient on Plavix. Anemia was chronic disease we'll be consulting Dr. ray hematology oncology. Continue the current treatment. Objective - Vital Signs Vital signs: Vital Signs Temp 98.0 F 04/23/19 08:00 Pulse 92 04/23/19 08:00 Resp 17 04/23/19 08:00 BP 108/68 04/23/19 08:00 Pulse Ox 93 L 04/23/19 08:00 Intake & Output 04/22/19 04/23/19 04/23/19 18:59 06:59 18:59 Intake Total 342 Output Total 600 500 Balance -258 -500 Weight 64.5 kg 63.9 kg Intake: Oral 342 Output: Urine 600 500 Other: Voiding Method Urinal Urinal # Voids 1 1 - Labs CBC & Chem 7: 04/23/19 07:04 04/23/19 07:04 Labs: Abnormal Lab Results - Last 24 Hours (Table) 04/23/19 04/23/19 Range/Units 07:04 07:04 RBC 2.82 L (4.30-5.90) m/uL Hgb 9.2 L D (13.0-17.5) gm/dL Hct 29.8 L (39.0-53.0) % MCV 105.8 H (80.0-100.0) fL RDW 16.8 H (11.5-15.5) % Lymphocytes # 0.6 L (1.0-4.8) k/uL Chloride 92 L (98-107) mmol/L Carbon Dioxide 40 H (22-30) mmol/L BUN 32 H (9-20) mg/dL Creatinine 1.34 H (0.66-1.25) mg/dL Microbiology - Last 24 Hours (Table) 04/22/19 08:06 Gram Stain - Preliminary Sputum 04/21/19 17:45 Blood Culture - Preliminary Blood No Growth after 24 hours
--- NOTE | 2019-04-23 10:32 | P.PN ---
Subjective Progress Note Date: 04/23/19 Principal diagnosis: Congestive heart failure secondary to systolic dysfunction This is a pleasant 68-year-old gentleman with CAD and prior stenting of the left main, severe ischemic cardiomyopathy, paroxysmal atrial fibrillation, carotid disease, as well as multiple comorbid conditions, was admitted to the hospital with increasing in the shortness of breath and he was diagnosed was congestive heart failure exacerbation secondary to systolic dysfunction. On follow-up with him today, he is feeling better internal shortness of breath but he is not quite back to his baseline. No chest pain or chest discomfort. He is on Lasix IV at this point. The creatinine continues to be stable. He is known to have chronic kidney disease and chronic anemia. The echocardiogram revealed impairment in the LV function with EF of around 35% which is his baseline. I would recommend continue the patient on IV Lasix for additional 24 hours and follow-up with the patient. Objective - Vital Signs Vital signs: Vital Signs Temp 98.0 F 04/23/19 08:00 Pulse 92 04/23/19 08:00 Resp 17 04/23/19 08:00 BP 108/68 04/23/19 08:00 Pulse Ox 93 L 04/23/19 08:00 Intake & Output 04/22/19 04/23/19 04/23/19 18:59 06:59 18:59 Intake Total 342 Output Total 600 500 Balance -258 -500 Weight 64.5 kg 63.9 kg Intake: Oral 342 Output: Urine 600 500 Other: Voiding Method Urinal Urinal # Voids 1 1 - Constitutional General appearance: Present: no acute distress - Respiratory Respiratory: bilateral: diminished - Cardiovascular Rhythm: regular Heart sounds: normal: S1, S2 - Labs CBC & Chem 7: 04/23/19 07:04 04/23/19 07:04 Labs: Abnormal Lab Results - Last 24 Hours (Table) 04/23/19 04/23/19 Range/Units 07:04 07:04 RBC 2.82 L (4.30-5.90) m/uL Hgb 9.2 L D (13.0-17.5) gm/dL Hct 29.8 L (39.0-53.0) % MCV 105.8 H (80.0-100.0) fL RDW 16.8 H (11.5-15.5) % Lymphocytes # 0.6 L (1.0-4.8) k/uL Chloride 92 L (98-107) mmol/L Carbon Dioxide 40 H (22-30) mmol/L BUN 32 H (9-20) mg/dL Creatinine 1.34 H (0.66-1.25) mg/dL Microbiology - Last 24 Hours (Table) 04/22/19 08:06 Gram Stain - Preliminary Sputum 04/21/19 17:45 Blood Culture - Preliminary Blood No Growth after 24 hours Assessment and Plan Assessment: Assessment #1 acute exacerbation of congestive heart failure secondary to systolic dysfunction #2 severe ischemic cardiomyopathy #3 severe underlying coronary artery disease #4 chronic obstructive pulmonary disease #5 paroxysmal atrial fibrillation #6 multiple comorbid conditions Plan #1 continue IV Lasix for additional 24 hours #2 continue monitor the kidney function and electrolytes #3 follow-up with the patient
--- NOTE | 2019-04-23 14:55 | P.PN ---
Subjective Progress Note Date: 04/23/19 Principal diagnosis: Acute exacerbation of chronic systolic congestive heart failure. This is another hospitalization for this 68-year-old male patient is coming in with increased exertional dyspnea, orthopnea and paroxysmal nocturnal dyspnea. Denies having any chest pain. The patient is known to have CHF with systolic heart failure and an ejection fraction of 30% and the patient has a history of sick sinus syndrome and chronic atopic incompetence along with AV darnell disease and he has a dual chamber AICD placed approximately 2 years ago. He has also in attendance of becoming hypokalemic he was maintained and Aldactone. He is known to have coronary artery disease with previous coronary intervention and stenting. He has proximal atrial fibrillation. His chronic stage III kidney disease. He has COPD with an FEV1 of 22% of predicted. As such as very poor functional performance status at baseline. During this current admission, the patient's chest x-rays showing pulmonary edema/CHF. His proBNP level was 14,000. Troponins are 0.02 and 0.03 respectively 2 and the creatinine is at 1.4-1.6. The patient has no chest pain. No angina. No palpitation. No pl eurisy. No hemoptysis. No syncope. He is on Lasix and he is responding. He is also on DuoNeb nebulized treatments around the clock. He is on oxygen at all times. He is a ex-smoker. The patient is seen today 04/23/2019 in follow-up on the selective care unit. He is currently resting comfortably in bed. Awake and alert in no acute distress. He is breathing easier today as compared to yesterday. Maintaining O2 saturations in the low 90s on 3 L/m per nasal cannula. He is on home oxygen at 2 L. He is currently in a negative balance. White count 6.9. Hemoglobin 9.2. Creatinine 1.34. Currently on Lasix 20 g IVPB every 8 hours. He remains on DuoNeb inhalations, Symbicort. Antibiotics in the form of ceftriaxone. Objective - Vital Signs Vital signs: Vital Signs Temp 98.0 F 04/23/19 08:00 Pulse 84 04/23/19 12:43 Resp 17 04/23/19 12:00 BP 113/60 04/23/19 12:00 Pulse Ox 94 L 04/23/19 12:00 Intake & Output 04/22/19 04/23/19 04/23/19 18:59 06:59 18:59 Intake Total 342 240 Output Total 600 500 300 Balance -258 -500 -60 Weight 64.5 kg 63.9 kg Intake: Oral 342 240 Output: Urine 600 500 300 Other: Voiding Method Urinal Urinal Urinal # Voids 1 1 - Exam Gen. appearance: A very pleasant 68-year-old gentleman. Frail, weak. On 3 L nasal cannula. Head exam was generally normal. There was no scleral icterus or corneal arcus. Mucous membranes were moist. Neck was supple and without jugular venous distension, thyromegaly, or carotid bruits. Carotids were easily palpable bilaterally. There was no adenopathy. Lungs sounds are diminished and with some bibasilar crackles. Cardiac exam revealed the PMI to be normally situated and sized. The rhythm was regular and no extrasystoles were noted during several minutes of auscultation. The first and second heart sounds were normal and physiologic splitting of the second heart sound was noted. There were no murmurs, rubs, clicks, or gallops. Pacemaker pocket is over the left anterior chest area Abdominal exam revealed normal bowel sounds. The abdomen was soft, non-tender, and without masses, organomegaly, or appreciable enlargement of the abdominal aorta. Right inguinal hernia wound is dry clean and intact at this point in time. No pain. No swelling. No drainage. Examination of the extremities revealed easily palpable radial, femoral and pedal pulses. There was no cyanosis, clubbing or edema. Examination of the skin revealed no evidence of significant rashes, suspicious appearing nevi or other concerning lesions. Neurologically is awake and alert and there is no focal neurological deficits. - Labs CBC & Chem 7: 04/23/19 07:04 04/23/19 07:04 Labs: Abnormal Lab Results - Last 24 Hours (Table) 04/23/19 04/23/19 Range/Units 07:04 07:04 RBC 2.82 L (4.30-5.90) m/uL Hgb 9.2 L D (13.0-17.5) gm/dL Hct 29.8 L (39.0-53.0) % MCV 105.8 H (80.0-100.0) fL RDW 16.8 H (11.5-15.5) % Lymphocytes # 0.6 L (1.0-4.8) k/uL Chloride 92 L (98-107) mmol/L Carbon Dioxide 40 H (22-30) mmol/L BUN 32 H (9-20) mg/dL Creatinine 1.34 H (0.66-1.25) mg/dL Microbiology - Last 24 Hours (Table) 04/22/19 08:06 Gram Stain - Preliminary Sputum 04/21/19 17:45 Blood Culture - Preliminary Blood No Growth after 24 hours Assessment and Plan Assessment: Impression: 1 acute decompensation of the chronic systolic heart failure. The patient is an ejection fraction of less than 30% along with secondary pulmonary hypertension. The patient is presenting with acute heart failure/pulmonary edema and his responding to diuretics. 2.7 nonelevated. EKG is Is nonischemic and is showing a sinus rhythm with a first-degree AV block and a RBB pattern along with old anteroseptal infarct 2 severe COPD with FEV1 of 22% of predicted 3 chronic hypoxic respiratory failure secondary to above 4 history of sick sinus syndrome 5 history of biventricular AICD placement regarding his severe cardiomyopathy 6 chronic stage III kidney disease 7 coronary artery disease with previous coronary intervention and stenting 8 paroxysmal atrial fibrillation 9 hypertension 10 hypothyroidism, TSH is within normal limits at 0.8. 11 osteoarthritis Plan: The patient was seen and evaluated by Dr. Pavon. He is improved today as compared to yesterday. Still more picture of congestive heart failure. He is continued on IV Lasix 20 mg every 8 hours. Labs reviewed. Creatinine improved. We will increase his activity as tolerated. We'll continue to follow make further recommendations based on his clinical status. I, the cosigning physician, performed a history & physical examination of the patient. Lungs sounds with crackles in the posterior bases, diminished. Maintaining good O2 saturations in the 90s on 3 L/m per nasal. I discussed the assessment and plan of care with my nurse practitioner, Jennyfer Enciso. I attest to the above note as dictated by her.
[2019-04-23] MEDS: SODIUM CHLORIDE 0.9% 1,000 ML IV SCH (18:26)
--- NOTE | 2019-04-23 19:22 | P.CONS ---
History of Present Illness - Reason for Consult Consult date: 04/23/19 Anemia - History of Present Illness Mr Mota is a pleasant WM, with multiple medical problems. He apparently has had anemia with Hgb in the 9-10 range, with macrocytosis, since at least 09/23. On 08/20/16, his Hgb was 10.1 with MCV 107.8. On 12/23/16, Hgb was 7.7, with MCV of 112. Other CBC indeces were WNL. BMP from 01/16/17 revealed a Cr of 1.2. He was thus referred here for further evaluation and recommendations. Additional labs were ordered which were negative other than the presence of 2 small M proteins ( IgG kappa 0.2 gm/dl , and IgG lambda 0.1 gm/dl). He had a bone marrow on 02/14/17, which did not show any significant abnormality. 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 A trial of P rocrit was recommended. He required iron infusions as iron sat was low , prior to starting Procrit. He started Procrit 20 K weekly in early 04/24. He has responded well and is currently on a Q 3 wk schedule, with Hgb in the 10-11 range. He was admitted in early 01/23 with left sided pneumonia and sepsis. He continued follow-up in the office after discharge with most recent Procrit injection on 04/16/19 with hemoglobin in the 10-11 range. He is now admitted with recurrent shortness of breath, felt to be due to congestive heart failure. Hemoglobin on admission was 11.8, and is 9.5 today. Consult was therefore placed further evaluation and recommendations. He denied any obvious bleeding Review of Systems Constitutional: Reports fatigue, Reports poor appetite, Reports weakness Eyes: denies blurred vision, denies pain Ears: deny: decreased hearing, ear discharge, earache, tinnitus Ears, nose, mouth and throat: Denies headache, Denies sore throat Cardiovascular: Reports shortness of breath Respiratory: Reports dyspnea, Reports home oxygen Gastrointestinal: Denies abdominal pain, Denies diarrhea, Denies nausea, Denies vomiting Genitourinary: Reports as per HPI Musculoskeletal: Reports muscle weakness Integumentary: Denies pruritus, Denies rash Neurological: Reports weakness Psychiatric: Denies anxiety, Denies depression Endocrine: Reports fatigue, Reports weight change Hematologic/Lymphatic: Reports as per HPI Past Medical History Past Medical History: Heart Failure, COPD, Hypertension, Myocardial Infarction (HI), Renal Disease, Thyroid Disorder, Hypertension, Myocardial Infarction (HI), Thyroid Disorder Additional Past Medical History / Comment(s): Coronary artery disease, history of severe ischemic cardiomyopathy with systolic heart failure and ejection fraction of 30-35%, sick sinus syndrome, history of coronary artery disease, hy pothyroidism, cataracts, chronic anemia, chronic kidney disease, history of insertion of a biventricular dual-chamber AICD, paroxysmal atrial fibrillation, chronic anemia, hypertension Last Myocardial Infarction Date:: 06/24/15 History of Any Multi-Drug Resistant Organisms: C-DIFF, MRSA Year Discovered:: 2015 MDRO Source:: sacral wound Past Surgical History: Heart Catheterization With Stent, Orthopedic Surgery, Pacemaker (Defibrillator dual-chamber AICD placement) Additional Past Surgical History / Comment(s): 1996 L shoulder rotator cuff surgery, colonoscopy with benign polypectomy.heart stent x1, sacral wound debridement with wound vac in 09/2015 Past Anesthesia/Blood Transfusion Reactions: No Reported Reaction Additional Past Anesthesia/Blood Transfusion Reaction / Comm: Pt has never re ceived blood. Date of Last Stent Placement:: 06/2015 Type of Cardiac Device: Permanent Pacemaker Device Placement Date:: 11/25/2016 Past Psychological History: No Psychological Hx Reported Smoking Status: Former smoker Past Alcohol Use History: None Reported Past Drug Use History: None Reported - Past Family History Father Family Medical History: Cancer, Coronary Artery Disease (CAD), Myocardial Infarction (HI) Additional Family Medical History / Comment(s): Father at age 86yrs. He had a CABG. Bladder cancer. Mother Family Medical History: Cancer Additional Family Medical History / Comment(s): Mother in her 30's of breast cancer. Medications and Allergies Home Medications Medication Instructions Recorded Confirmed Type Multivitamins, Thera [Multivitamin 1 tab PO HS 06/24/15 04/21/19 History (formulary)] Aspirin 81 mg PO DAILY 09/04/15 04/21/19 History Atorvastatin [Lipitor] 40 mg PO HS tab 09/22/15 04/21/19 Rx Clopidogrel [Plavix] 75 mg PO DAILY tab 09/22/15 04/21/19 Rx Budesonide/Formoterol Fumarate 2 puff INHALATION RT-BID 09/29/15 04/21/19 History [Symbicort 160-4.5 Mcg Inhaler] Ferrous Sulfate [Iron (65 MG 325 mg PO BID 10/04/15 04/21/19 History Elemental)] Ipratropium-Albuterol Nebulize 3 ml INHALATION RT-QID PRN 10/29/16 04/21/19 History [Duoneb 0.5 mg-3 mg/3 ml Soln] Pantoprazole [Protonix] 40 mg PO DAILY 10/29/16 04/21/19 History Docusate [Colace] 100 mg PO HS 12/13/17 04/21/19 History Folic Acid 0.8 mg PO HS 12/13/17 04/21/19 History Metoprolol Tartrate [Lopressor] 25 mg PO BID 12/13/17 04/21/19 History Procrit(Unknown Dose) 1 dose SQ Q21D PRN 12/13/17 04/21/19 History Albuterol Inhaler [Ventolin Hfa 1 - 2 puff INHALATION RT-Q6H PRN 02/16/19 History Inhaler] Allopurinol [Zyloprim] 100 mg PO HS 02/16/19 04/21/19 History Cyanocobalamin (Vitamin B-12) 1,000 mcg PO DAILY 02/16/19 04/21/19 History [Vitamin B-12] L.acidoph,Paracasei, B.lactis 1 cap PO HS 02/16/19 04/21/19 History [Probiotic] Cholecalciferol [Vitamin D3 (25 1,000 unit PO HS 02/20/19 04/21/19 History Mcg = 1000 Iu)] Levothyroxine Sodium [Synthroid] 175 mcg PO DAILY 02/20/19 04/21/19 History Amiodarone [Cordarone] 200 mg PO DAILY #30 tab 02/22/19 04/21/19 Rx Furosemide [Lasix] 40 mg PO DAILY tab 02/22/19 04/21/19 Rx Spironolactone [Aldactone] 12.5 mg PO DAILY #30 tablet 02/22/19 04/21/19 Rx Allergies Allergy/AdvReac Type Severity Reaction Status Date / Time haloperidol [From Haldol] AdvReac Confusion Verified 04/21/19 15:14 Physical Exam Vitals: Vital Signs Temp Pulse Pulse Resp BP Pulse Ox 04/23/19 16:00 98.7 F 84 17 103/55 94 L 04/23/19 15:50 84 04/23/19 15:39 80 04/23/19 12:43 84 04/23/19 12:26 84 04/23/19 12:00 81 17 113/60 94 L 04/23/19 08:00 98.0 F 92 17 108/68 93 L 04/23/19 07:33 88 04/23/19 07:25 84 04/23/19 04:00 97.1 F L 86 15 116/66 91 L 04/23/19 03:49 88 04/23/19 03:40 87 04/23/19 00:00 81 18 04/22/19 20:13 84 18 04/22/19 20:03 82 18 04/22/19 20:00 97.8 F 87 17 122/62 97 Intake and Output 04/23/19 04/23/19 04/23/19 06:59 14:59 22:59 Intake Total 240 Output Total 500 300 Balance -500 -60 Intake: Oral 240 Output: Urine 500 300 Other: Voiding Method Urinal Urinal # Voids 1 Weight 63.9 kg - Constitutional General appearance: no acute distress - EENT Eyes: EOMI, PERRLA ENT: hearing grossly normal, normal oropharynx - Neck Neck: no lymphadenopathy Thyroid: bilateral: normal size - Respiratory Respiratory: bilateral: CTA, rales, wheezing (Scattered) - Cardiovascular Rhythm: regular Heart sounds: normal: S1, S2 - Gastrointestinal General gastrointestinal: normal bowel sounds, soft - Integumentary Thin skin, with easy superficial bruising, chronic - Neurologic Neurologic: CNII-XII intact - Musculoskeletal Musculoskeletal: generalized weakness, strength equal bilaterally - Psychiatric Psychiatric: A&O x's 3, appropriate affect Results CBC & Chem 7: 04/23/19 07:04 04/23/19 07:04 Labs: Abnormal Lab Results - Last 24 Hours (Table) 04/23/19 04/23/19 Range/Units 07:04 07:04 RBC 2.82 L (4.30-5.90) m/uL Hgb 9.2 L D (13.0-17.5) gm/dL Hct 29.8 L (39.0-53.0) % MCV 105.8 H (80.0-100.0) fL RDW 16.8 H (11.5-15.5) % Lymphocytes # 0.6 L (1.0-4.8) k/uL Chloride 92 L (98-107) mmol/L Carbon Dioxide 40 H (22-30) mmol/L BUN 32 H (9-20) mg/dL Creatinine 1.34 H (0.66-1.25) mg/dL Microbiology - Last 24 Hours (Table) 04/22/19 08:06 Gram Stain - Preliminary Sputum 04/21/19 17:45 Blood Culture - Preliminary Blood No Growth after 24 hours Comments: Echocardiogram report reviewed Chest x-ray: report reviewed Assessment and Plan (1) Anemia Narrative/Plan: This is macrocytic, and chronic. Her to be due to anemia of chronic kidney disease, with possibly element of marrow hypofunction from early myelodysplasia. Diagnostic and therapeutic circumstances as described. The patient is currently maintained on every 3 weeks Procrit and has done very well with that with hemoglobin chronically in the 10-11 range. The patient received Procrit on 04/16/19. Hemoglobin has shown a drop into the 9 range. In this patient with a compromise bone marrow, drops in hemoglobin in conditions of additional stress such as any acute illness are expected. Ther efore at this level, this was not felt to be concerning Continue to monitor. If progressive drop was noted additional workup will be ordered. And transfuse to keep hemoglobin greater than 7 The patient has significant microcytosis, which is also chronic and due to his underlying MGUS. He is on observation for the same, with no evidence of progression. Current Visit: No Status: Acute Code(s): D64.9 - ANEMIA, UNSPECIFIED SNOMED Code(s): 068953400 Plan: The patient has multiple other medical problems, including oxygen-dependent COPD, and now congestive heart failure with severely reduced ejection fraction. Defer to the admitting service and other consultants for management of the same.
[2019-04-23] MEDS: DOCUSATE 100 MG CAP PO SCH (20:06)
[2019-04-23] MEDS: MULTIVITAMINS, THERA 1 EACH TAB PO SCH (20:06)
[2019-04-23] MEDS: FOLIC ACID 1 MG TAB PO SCH (20:07)
[2019-04-23] MEDS: ALLOPURINOL 100 MG TAB PO SCH (20:07)
[2019-04-23] MEDS: LACTOBACILLUS ACIDOPH & BULGAR 1 EACH PACKET PO SCH (20:07)
[2019-04-23] MEDS: CHOLECALCIFEROL 1,000 UNIT TAB PO SCH (20:07)
[2019-04-23] MEDS: ATORVASTATIN 40 MG TAB PO SCH (20:07)
[2019-04-24] MEDS: IPRATROPIUM-ALBUTEROL 3 ML NEB INHALATION PRN ×4 (04:43→19:27)
[2019-04-24] MEDS: LEVOTHYROXINE 75 MCG TAB PO SCH (06:18)
[2019-04-24] MEDS: PANTOPRAZOLE 40 MG TABLET PO SCH (06:18)
[2019-04-24] MEDS: LEVOTHYROXINE 100 MCG TAB PO SCH (06:18)
[2019-04-24] MEDS: SYMBICORT 160-4.5 MCG INHALER INHALATION SCH ×2 (07:42→19:26)
[2019-04-24] MEDS: AMIODARONE 200 MG TAB PO SCH (08:53)
[2019-04-24] MEDS: CLOPIDOGREL 75 MG TAB PO SCH (08:53)
[2019-04-24] MEDS: CYANOCOBALAMIN 500 MCG TAB PO SCH (08:53)
[2019-04-24] MEDS: FERROUS SULFATE 325 MG TAB PO SCH ×2 (08:53→20:55)
[2019-04-24] MEDS: ASPIRIN 81 MG PO SCH (08:53)
[2019-04-24] MEDS: METOPROLOL TARTRATE 25 MG TAB PO SCH ×2 (08:53→20:56)
[2019-04-24] MEDS: FUROSEMIDE 10 MG/ML 2 ML VIAL IV SCH ×3 (08:54→23:17)
--- NOTE | 2019-04-24 12:15 | P.PN ---
Subjective Progress Note Date: 04/24/19 This is another hospitalization for this 68-year-old male patient is coming in with increased exertional dyspnea, orthopnea and paroxysmal nocturnal dyspnea. Denies having any chest pain. The patient is known to have CHF with systolic heart failure and an ejection fraction of 30% and the patient has a history of sick sinus syndrome and chronic atopic incompetence along with AV darnell disease and he has a dual chamber AICD placed approximately 2 years ago. He has also in attendance of becoming hypokalemic he was maintained and Aldactone. He is known to have coronary artery disease with previous coronary intervention and stenting. He has proximal atrial fibrillation. His chronic stage III kidney disease. He has COPD with an FEV1 of 22% of predicted. As such as very poor functional performance status at baseline. During this current admission, the patient's chest x-rays showing pulmonary edema/CHF. His proBNP level was 14,000. Troponins are 0.02 and 0.03 respectively 2 and the creatinine is at 1.4-1.6. The patient has no chest pain. No angina. No palpitation. No pleurisy. No hemoptysis. No syncope. He is on Lasix and he is responding. He is also on DuoNeb nebulized treatments around the clock. He is on oxygen at all times. He is a ex-smoker. The patient is seen today 04/23/2019 in follow-up on the selective care unit. He is currently resting comfortably in bed. Awake and alert in no acute distress. He is breathing easier today as compared to yesterday. Maintaining O2 saturations in the low 90s on 3 L/m per nasal cannula. He is on home oxygen at 2 L. He is currently in a negative balance. White count 6.9. Hemoglobin 9.2. Creatinine 1.34. Currently on Lasix 20 g IVPB every 8 hours. He remains on DuoNeb inhalations, Symbicort. Antibiotics in the form of ceftriaxone. On 04/24/2019, the patient is feeling slightly better. Is ambulating. No cough or sputum production. He is feeling that he is closer to his baseline although he is not fully recovered. He is on IV Lasix. His renal function is improved compared to yesterday and creatinine is down to 1.3. He has a hemoglobin of 6.9 with a white cell count of 9.2. The drop in hemoglobin is to be monitored closely. He remains on furosemide 20 mg every 8 hours. The neck fluid balance has been negative over the past 24 hours. No significant edema in lower extremities. He remains on oxygen at 3 L to maintain a saturation above 90% with a pulse is 76%. Objective - Vital Signs Vital signs: Vital Signs Temp 98.2 F 04/24/19 11:52 Pulse 88 04/24/19 12:00 Resp 20 04/24/19 11:52 BP 107/59 04/24/19 11:52 Pulse Ox 96 04/24/19 11:52 Intake & Output 04/23/19 04/24/19 04/24/19 18:59 06:59 18:59 Intake Total 240 180 225 Output Total 300 830 200 Balance -60 -650 25 Weight 63.8 kg Intake: Intake, IV Titration 50 Amount cefTRIAXone 1 gm In 50 Sodium Chloride 0.9% 50 ml @ 100 mls/hr IVPB Q24HR [facility] Rx#:[id number] Oral 240 180 175 Output: Urine 300 830 200 Other: Voiding Method Urinal Toilet Urinal # Voids 1 # Bowel Movements 1 - Exam Gen. appearance: A very pleasant 68-year-old gentleman. Frail, weak. On 3 L nasal cannula. Head exam was generally normal. There was no scleral icterus or corneal arcus. Mucous membranes were moist. Neck was supple and without jugular venous distension, thyromegaly, or carotid bruits. Carotids were easily palpable bilaterally. There was no adenopathy. Lungs sounds are diminished and with some bibasilar crackles. Cardiac exam revealed the PMI to be normally situated and sized. The rhythm was regular and no extrasystoles were noted during several minutes of auscultation. The first and second heart sounds were normal and physiologic splitting of the second heart sound was noted. There were no murmurs, rubs, clicks, or gallops. Pacemaker pocket is over the left anterior chest area Abdominal exam revealed normal bowel sounds. The abdomen was soft, non-tender, and without masses, organomegaly, or appreciable enlargement of the abdominal aorta. Right inguinal hernia wound is dry clean and intact at this point in time. No pain. No swelling. No drainage. Examination of the extremities revealed easily palpable radial, femoral and pedal pulses. There was no cyanosis, clubbing or edema. Examination of the skin revealed no evidence of significant rashes, suspicious appearing nevi or other concerning lesions. Neurologically is awake and alert and there is no focal neurological deficits. - Labs CBC & Chem 7: 04/23/19 07:04 04/23/19 07:04 Labs: Microbiology - Last 24 Hours (Table) 04/22/19 08:06 Gram Stain - Preliminary Sputum Sputum Culture - Preliminary Pseudomonas spec 04/21/19 17:45 Blood Culture - Preliminary Blood No Growth after 48 hours Assessment and Plan Plan: 1 acute decompensation of the chronic systolic heart failure. The patient is an ejection fraction of less than 30% along with secondary pulmonary hypertension. The patient is presenting with acute heart failure/pulmonary edema and his responding to diuretics. 2.7 nonelevated. EKG is Is nonischemic and is showing a sinus rhythm with a first-degree AV block and a RBB pattern along with old anteroseptal infarct 2 severe COPD with FEV1 of 22% of predicted 3 chronic hypoxic respiratory failure secondary to above 4 history of sick sinus syndrome 5 history of biventricular AICD placement regarding his severe cardiomyopathy 6 chronic stage III kidney disease 7 coronary artery disease with previous coronary intervention and stenting 8 paroxysmal atrial fibrillation 9 hypertension 10 hypothyroidism, TSH is within normal limits at 0.8. 11 osteoarthritis 12 Chronic anemia hematology is on the case. There is a drop in hemoglobin to these to be further monitored. May consider early myelodysplasia or anemia of chronic disease. Plan The patient is improving. Creatinine is lower down to 1.3. He is on IV Lasix. He remains on a negative fluid balance. Wean down the FiO2 to 2 L if possible. Ambulate in the hallway. Possible discharge in a.m. if he continues to show signs of improvement.
--- NOTE | 2019-04-24 13:18 | P.PN ---
Subjective Progress Note Date: 04/24/19 (Pseudomonas in the sputum) Principal diagnosis: #1 congestive heart failure acute systolic on chronic with underlying impaired ejection fraction 30% with ischemic cardiomyopathy. #2 COPD exacerbation with the cuff sign expectoration sputum culture indicating Pseudomonas however could be colonization culture is not available yet. #3 on permanent oxygen with the underlying chronic respiratory failure. #4 history of hypo-thyroidism currently controlled. #5 history of hypertension currently on the hypotensive side with the blood pressure 107/59. #6 tracheobronchitis as mentioned above sputum was growing Pseudomonas however we don't know if it is colonization and the culture and sensitivity is not available yet. #7 hyperlipidemia. #8 gouty arthropathy with hyperuricemia. #9 insomnia. #10 hypothyroidism. Progress note date of service 04/24/2019. Patient seen and evaluated discussed with him the current plan with the currently improved his congestive heart failure, however the sputum grew pseudomonas aeruginosa we are awaiting for the culture and sensitivity, and notifying Dr. Pavon with these results to see if need to change his antibiotic however culture is not available yet. His vital signs stable Temperature 98.2 F oral, heart rate 88/m with a history of atrial fibrillation he had still some coughing, his blood pressure 107/59 and the mean 75. Pulse ox 96% on 3 L. The last laboratory was done on 04/23/2019 yesterday and his hemoglobin was 9.2 and hematocrit 29.8 and MCV 105.8, patient seen by Dr. Pollard hematology oncology, he was following him and he was giving him Procrit every 3 weeks. With the underlying possibility of myelodysplasia. With the underlying hypochromasia and nieces cytosis and macro cytosis. His chemistry profile indicating normal potassium 4.4 which was on admission 5.5, sodium corrected 137, his underlying carbon dioxide is 40 and an BUN 32 and creatinine 1.54 which is significantly improved and his EGFR is also improved to 55 for non-. Repeat troponin was negative. However on admission his B-type natriuretic pe ptide was 14,000. Uric acid is stable 6.5. Thyroid function stable On the physical exam: Patient is conscious alert oriented 3, his able to walk him in the hallway however he felt wobbly on his feet. Head was normocephalic atraumatic pupil was equal reactive oropharynx no change with upper plate dentures able to swallow and eat. However he did not like hospital food and his able to get him food from outside. Neck was supple no JVD no thyromegaly no lymphadenopathy trachea midline. The chest was irrigated bilaterally still he has a cough and with hyperexpansion of the long orally underlying COPD he had still coughing present. The the heart is improved with compensation and started to ambulate. Abdomen is soft positive bowel sounds extremities no edema and positive pulses. Neurologically stable. Assessment: The sputum culture indicating Pseudomonas however we don't have the sensitivity and the nursing staff will notify Dr. Thorne pulmonary and critical, patient currently on Rocephin, and we're waiting for culture and sensitivity. New Plan: Will ambulate the patient and notify Dr. Thorne the results of the sputum and if it is colonization or need to change the antibiotic, meanwhile the culture and sensitivity is not available yet. We'll discontinue the7 and started on Cipro 500 mg twice a day ciprofloxacin. And we will see if the pulmonary agreed daughter he need to change. Objective - Vital Signs Vital signs: Vital Signs Temp 98.2 F 04/24/19 11:52 Pulse 88 04/24/19 12:00 Resp 20 04/24/19 11:52 BP 107/59 04/24/19 11:52 Pulse Ox 96 04/24/19 11:52 Intake & Output 04/23/19 04/24/19 04/24/19 18:59 06:59 18:59 Intake Total 240 180 225 Output Total 300 830 200 Balance -60 -650 25 Weight 63.8 kg Intake: Intake, IV Titration 50 Amount cefTRIAXone 1 gm In 50 Sodium Chloride 0.9% 50 ml @ 100 mls/hr IVPB Q24HR [facility] Rx#:[id number] Oral 240 180 175 Output: Urine 300 830 200 Other: Voiding Method Urinal Toilet Urinal # Voids 1 # Bowel Movements 1 - Labs CBC & Chem 7: 04/23/19 07:04 04/23/19 07:04 Labs: Microbiology - Last 24 Hours (Table) 04/22/19 08:06 Gram Stain - Preliminary Sputum Sputum Culture - Preliminary Pseudomonas spec 04/21/19 17:45 Blood Culture - Preliminary Blood No Growth after 48 hours
--- NOTE | 2019-04-24 13:55 | XR ---
EXAMINATION TYPE: XR chest 2V DATE OF EXAM: 04/24/2019 HISTORY: Underlying COPD exacerbation and tracheobronchitis. REFERENCE: Previous study dated 04/21/2019. FINDINGS: A bipolar pacemaker in place on the left. Heart size upper limits of normal. There is worsening airspace disease at the left lung base and ther e is also developing airspace disease at the right lung base. There is minor vascular congestion with out tiffany edema. IMPRESSION: 1. UNDERLYING COPD. 2. WORSENING BIBASILAR AIRSPACE DISEASE. 3. I CANNOT EXCLUDE A SMALL LEFT EFFUSION.
[2019-04-24] MEDS: CIPROFLOXACIN HCL 500 MG TAB PO SCH ×2 (15:01→21:02)
[2019-04-24] MEDS: SODIUM CHLORIDE 0.9% 1,000 ML IV SCH (15:07)
--- NOTE | 2019-04-24 15:58 | P.PN ---
Subjective This is Le Hernandez PA-C dictating a progress note on this patient The patient was interviewed and examined by me as well as by Dr. Bowden Case discussed with Dr. Bowden and he agrees with the plan of care IMPRESSION / ASSESSMENT: Acute on chronic systolic congestive heart failure, symptoms improving CAD status post stenting Ischemic cardiomyopathy status post ICD, EF 30-35% Paroxysmal atrial fibrillation Stage III kidney disease COPD PLAN: Continue current medication regimen, maximize heart failure medications as tolerated, continue switching to oral Lasix tomorrow if patient continues to improve HPI/interval history Patient is a 68-year-old male with a past medical history of CAD status post stenting, ischemic cardiomyopathy status post ICD, paroxysmal atrial fibrillation, and carotid disease who presented with increasing shortness of breath and was admitted for treatment of congestive heart failure exacerbation. he is being diuresed with IV Lasix. Patient seen and examined resting comfortably in his chair. States his breathing has improved some but he is still short of breath. Denies any other complaints including chest pain, palpitations, dizziness, lightheadedness, syncope. EXAMINATION Temperature 98.2F, pulse 88, respirations 20, blood pressure 102/59, oxygen saturation saturation 96% on 3 L nasal cannula patient seen and examined resting comfortably in his chair, in no acute distress Breath sounds diminished bilaterally at the bases Heart is regular, systolic murmur appreciated at the apex No lower extremity edema REVIEW OF LABS, ECG WBC 6.9, hemoglobin 9.2, potassium 4.4, BUN 32, creatinine 1.34 Objective - Vital Signs Vital signs: Vital Signs Temp 98.2 F 04/24/19 11:52 Pulse 88 04/24/19 12:00 Resp 20 04/24/19 11:52 BP 107/59 04/24/19 11:52 Pulse Ox 96 04/24/19 11:52 Intake & Output 04/23/19 04/24/19 04/24/19 18:59 06:59 18:59 Intake Total 240 180 225 Output Total 300 830 200 Balance -60 -650 25 Weight 63.8 kg Intake: Intake, IV Titration 50 Amount cefTRIAXone 1 gm In 50 Sodium Chloride 0.9% 50 ml @ 100 mls/hr IVPB Q24HR [facility] Rx#:[id number] Oral 240 180 175 Output: Urine 300 830 200 Other: Voiding Method Urinal Toilet Urinal # Voids 1 # Bowel Movements 1 - Labs CBC & Chem 7: 04/23/19 07:04 04/23/19 07:04 Labs: Microbiology - Last 24 Hours (Table) 04/22/19 08:06 Gram Stain - Preliminary Sputum Sputum Culture - Preliminary Pseudomonas spec 04/21/19 17:45 Blood Culture - Preliminary Blood No Growth after 48 hours
[2019-04-24] MEDS: ATORVASTATIN 40 MG TAB PO SCH (20:55)
[2019-04-24] MEDS: LACTOBACILLUS ACIDOPH & BULGAR 1 EACH PACKET PO SCH (20:55)
[2019-04-24] MEDS: FOLIC ACID 1 MG TAB PO SCH (20:55)
[2019-04-24] MEDS: DOCUSATE 100 MG CAP PO SCH (20:56)
[2019-04-24] MEDS: CHOLECALCIFEROL 1,000 UNIT TAB PO SCH (20:56)
[2019-04-24] MEDS: MULTIVITAMINS, THERA 1 EACH TAB PO SCH (20:56)
[2019-04-24] MEDS: ALLOPURINOL 100 MG TAB PO SCH (20:56)
[2019-04-25] MEDS: LEVOTHYROXINE 100 MCG TAB PO SCH (06:12)
[2019-04-25] MEDS: LEVOTHYROXINE 75 MCG TAB PO SCH (06:12)
[2019-04-25] MEDS: PANTOPRAZOLE 40 MG TABLET PO SCH (06:12)
[2019-04-25] MEDS: SYMBICORT 160-4.5 MCG INHALER INHALATION SCH (07:13)
[2019-04-25] MEDS: IPRATROPIUM-ALBUTEROL 3 ML NEB INHALATION PRN ×2 (07:13→11:05)
[2019-04-25 08:34] VITALS: RESP 18; TEMP 97.4
[2019-04-25] MEDS: FERROUS SULFATE 325 MG TAB PO SCH (09:33)
[2019-04-25] MEDS: AMIODARONE 200 MG TAB PO SCH (09:33)
[2019-04-25] MEDS: ASPIRIN 81 MG PO SCH (09:33)
[2019-04-25] MEDS: CIPROFLOXACIN HCL 500 MG TAB PO SCH (09:34)
[2019-04-25] MEDS: METOPROLOL TARTRATE 25 MG TAB PO SCH (09:34)
[2019-04-25] MEDS: CYANOCOBALAMIN 500 MCG TAB PO SCH (09:34)
[2019-04-25] MEDS: CLOPIDOGREL 75 MG TAB PO SCH (09:34)
[2019-04-25] MEDS: FUROSEMIDE 10 MG/ML 2 ML VIAL IV SCH (09:34)
[2019-04-25 11:39] VITALS: BP 111/55; PULSE 67
--- NOTE | 2019-04-25 12:10 | P.DS ---
Providers Date of admission: 04/21/19 16:50 Expected date of discharge: 04/25/19 (Stable) Attending physician: Jovanni Finney Consults: 04/21/19 16:49 Consult Physician Routine Consulting Provider: Alyce Haynes Consult Reason/Comments: heart failure Do you want consulting provider notified?: Yes 04/21/19 19:26 Consult Physician Routine Consulting Provider: Leonila Pavon Consult Reason/Comments: CHF/COPD Do you want consulting provider notified?: Yes, Notify in am 04/23/19 09:44 Consult Physician Urgent Consulting Provider: Aric Pollard Consult Reason/Comments: Anemia Do you want consulting provider notified?: Yes Primary care physician: Jovanni Finney Discharge summary date of service 04/25/2019. Final diagnosis: #1 congestive heart failure acute systolic on top of chronic with the underlying ejection fraction 30%. #2 ischemic cardiomyopathy. #3 tracheobronchitis with the underlying sputum indicating pseudomonas aeruginosa sensitive to Cipro. #4 COPD exacerbation with the underlying cough questionable colonization. #5 chronic respiratory failure with the underlying permanent oxygen 3 L/m. #6 hypothyroidism on maintained on thyroid medication. #7 hyperlipidemia. #8 hyperuricemia with gouty arthropathy. Stable uric acid. #8 insomnia currently stable on medication. #9 anemia, has been followed by Dr. caro hematology oncology with the probability of myelodysplastic syndrome with the presence of macro cytosis and hypochromasia, patient on Procrit every [address] ray #10 chronic kidney disease stage III. #11 ex-smoker. Patient presentation to the emergency room: Shortness of breath fatigued chest x-ray, indicating mild pulmonary interstitial edema consistent with congestive heart failure with the proBNP 14,000. Patient brought by his to the ER with the shortness of breath with the previous history of heart failure and underlying COPD and coronary artery disease and history of [place] in the past with the coronary artery disease with the multiple comorbidity patient admitted to the hospital with acute congestive heart failure, tracheobronchitis chronic respiratory failure. Hospital course: Patient was started on diuresis and inhalation therapy, consultation with the cardiology, consultation with the pulmonary and critical care. And sputum culture as well patient initially started on Rocephin and subsequently the sputum culture indicating pseudomonas aeruginosa and antibiotic changes to Cipro. Which is the best sensitivity available which will be continuing the treatment for total of 5 days. Patient seen today by Dr. Borjas and Dr. Thorne, cardiology, pulmonary. Her last the patient to be discharged today to be followed as outpatient. On exam today on discharge: Vital sign temperature 97.4 oral pulse rate 93 and respiratory rate 18/m nonlabored and the blood pressure fluctuating between 123/58 and 111/55. He is on nasal cannula 3 m and he is 96%. Laboratory: White count 6.9 and hemoglobin dropped to 9.2 and a hematocrit 29.[address] Pollard hematology oncology and he will be following him as outpatient no change in the current treatment. Sodium 137, potassium 4.4, carbon dioxide is 40 chloride 92, BUN 32, creatinine 1.34 and initially on admission was 1.4 to with improvement despite that the patient was received Lasix. Estimated glomerular filtration rate 55 at this time was 51, uric acid is 6.5 with a calcium 9.1 and magnesium 2. His anion gap is 5. TSH was checked on admission with the underlying history of hypo-thyroidism and his TSH was 0.853 controlled and he is on Synthroid for his hypothyroidism. On admission he had B-type natriuretic peptide 14,000 and and that troponin was checks 2 times and was normal. On examination on discharge patient is conscious alert oriented his at bedside he stated that Dr. Villafuerte and an Dr. Bowden released him to be discharged. And he feel comfortable to go home. HEENT negative no changes Neck was supple no JVD no thyromegaly no lymphadenopathy. Chest increased anteroposterior diameter with the underlying hyperinflation and history of smoker in the past lung is created he had a recent chest x-ray with atelectasis of the lower lung field. Heart regular sinus rhythm with the history of paroxysmal atrial fibrillation. Abdomen is soft positive bowel sounds no tenderness in the four-quadrant Extremities no edema and positive pulses Neurologically stable no lateralizing sign and he able to ambulate and conscious alert oriented 3 and the head normocephalic atraumatic. Assessment: Patient stable general condition for discharge home today. Follow-up with cardiac cath lab manager and the pulmonary bi consultant. Plan: Gradual increase his activity as tolerated. Diet regular renal diet. Patient Condition at Discharge: Fair Plan - Discharge Summary Discharge Rx Participant: No New Discharge Prescriptions: No Action Multivitamins, Thera [Multivitamin (formulary)] 1 tab PO HS Aspirin 81 mg PO DAILY Atorvastatin [Lipitor] 40 mg PO HS tab Clopidogrel [Plavix] 75 mg PO DAILY tab Budesonide/Formoterol Fumarate [Symbicort 160-4.5 Mcg Inhaler] 2 puff INHA LATION RT-BID Ferrous Sulfate [Iron (65 MG Elemental)] 325 mg PO BID Pantoprazole [Protonix] 40 mg PO DAILY Ipratropium-Albuterol Nebulize [Duoneb 0.5 mg-3 mg/3 ml Soln] 3 ml INHALATION RT-QID PRN PRN Reason: Dyspnea Docusate [Colace] 100 mg PO HS Metoprolol Tartrate [Lopressor] 25 mg PO BID Folic Acid 0.8 mg PO HS Procrit(Unknown Dose) 1 dose SQ Q21D PRN PRN Reason: anemia Allopurinol [Zyloprim] 100 mg PO HS Albuterol Inhaler [Ventolin Hfa Inhaler] 1 - 2 puff INHALATION RT-Q6H PRN PRN Reason: Shortness Of Breath L.acidoph,Paracasei, B.lactis [Probiotic] 1 cap PO HS Cyanocobalamin (Vitamin B-12) [Vitamin B-12] 1,000 mcg PO DAILY Cholecalciferol [Vitamin D3 (25 Mcg = 1000 Iu)] 1,000 unit PO HS Levothyroxine Sodium [Synthroid] 175 mcg PO DAILY Furosemide [Lasix] 40 mg PO DAILY tab Spironolactone [Aldactone] 12.5 mg PO DAILY #30 tablet Amiodarone [Cordarone] 200 mg PO DAILY #30 tab Discharge Medication List Multivitamins, Thera [Multivitamin (formulary)] 1 tab PO HS 06/24/15 [History] Aspirin 81 mg PO DAILY 09/04/15 [History] Atorvastatin [Lipitor] 40 mg PO HS tab 09/22/15 [Rx] Clopidogrel [Plavix] 75 mg PO DAILY tab 09/22/15 [Rx] Budesonide/Formoterol Fumarate [Symbicort 160-4.5 Mcg Inhaler] 2 puff INHALATION RT-BID 09/29/15 [History] Ferrous Sulfate [Iron (65 MG Elemental)] 325 mg PO BID 10/04/15 [History] Ipratropium-Albuterol Nebulize [Duoneb 0.5 mg-3 mg/3 ml Soln] 3 ml INHALATION RT-QID PRN 10/29/16 [History] Pantoprazole [Protonix] 40 mg PO DAILY 10/29/16 [History] Docusate [Colace] 100 mg PO HS 12/13/17 [History] Folic Acid 0.8 mg PO HS 12/13/17 [History] Metoprolol Tartrate [Lopressor] 25 mg PO BID 12/13/17 [History] Procrit(Unknown Dose) 1 dose SQ Q21D PRN 12/13/17 [History] Albuterol Inhaler [Ventolin Hfa Inhaler] 1 - 2 puff INHALATION RT-Q6H PRN 02/16/19 [History] Allopurinol [Zyloprim] 100 mg PO HS 02/16/19 [History] Cyanocobalamin (Vitamin B-12) [Vitamin B-12] 1,000 mcg PO DAILY 02/16/19 [History] L.acidoph,Paracasei, B.lactis [Probiotic] 1 cap PO HS 02/16/19 [History] Cholecalciferol [Vitamin D3 (25 Mcg = 1000 Iu)] 1,000 unit PO HS 02/20/19 [History] Levothyroxine Sodium [Synthroid] 175 mcg PO DAILY 02/20/19 [History] Amiodarone [Cordarone] 200 mg PO DAILY #30 tab 02/22/19 [Rx] Furosemide [Lasix] 40 mg PO DAILY tab 02/22/19 [Rx] Spironolactone [Aldactone] 12.5 mg PO DAILY #30 tablet 02/22/19 [Rx] Follow up Appointment(s)/Referral(s): [facility], [NON-STAFF] - Jovanni Finney MD [Primary Care Provider] - 1-2 days Activity/Diet/Wound Care/Special Instructions: Copay for Entresto will be $47/month. Script at [facility] pharmacy but is not filled - if patient discharged on Entresto call and notify pharmacy to fill Rx
--- NOTE | 2019-04-25 13:03 | P.PN ---
Subjective Progress Note Date: 04/25/19 This is another hospitalization for this 68-year-old male patient is coming in with increased exertional dyspnea, orthopnea and paroxysmal nocturnal dyspnea. Denies having any chest pain. The patient is known to have CHF with systolic heart failure and an ejection fraction of 30% and the patient has a history of sick sinus syndrome and chronic atopic incompetence along with AV darnell disease and he has a dual chamber AICD placed approximately 2 years ago. He has also in attendance of becoming hypokalemic he was maintained and Aldactone. He is known to have coronary artery disease with previous coronary intervention and stenting. He has proximal atrial fibrillation. His chronic stage III kidney disease. He has COPD with an FEV1 of 22% of predicted. As such as very poor functional performance status at baseline. During this current admission, the patient's chest x-rays showing pulmonary edema/CHF. His proBNP level was 14,000. Troponins are 0.02 and 0.03 respectively 2 and the creatinine is at 1.4-1.6. The patient has no chest pain. No angina. No palpitation. No pleurisy. No hemoptysis. No syncope. He is on Lasix and he is responding. He is also on DuoNeb nebulized treatments around the clock. He is on oxygen at all times. He is a ex-smoker. The patient is seen today 04/23/2019 in follow-up on the selective care unit. He is currently resting comfortably in bed. Awake and alert in no acute distress. He is breathing easier today as compared to yesterday. Maintaining O2 saturations in the low 90s on 3 L/m per nasal cannula. He is on home oxygen at 2 L. He is currently in a negative balance. White count 6.9. Hemoglobin 9.2. Creatinine 1.34. Currently on Lasix 20 g IVPB every 8 hours. He remains on DuoNeb inhalations, Symbicort. Antibiotics in the form of ceftriaxone. On 04/24/2019, the patient is feeling slightly better. Is ambulating. No cough or sputum production. He is feeling that he is closer to his baseline although he is not fully recovered. He is on IV Lasix. His renal function is improved compared to yesterday and creatinine is down to 1.3. He has a hemoglobin of 6.9 with a white cell count of 9.2. The drop in hemoglobin is to be monitored closely. He remains on furosemide 20 mg every 8 hours. The neck fluid balance has been negative over the past 24 hours. No significant edema in lower extremities. He remains on oxygen at 3 L to maintain a saturation above 90% with a pulse is 76%. On 04/25/2019 the patient is sitting up on a chair. Feeling great. Less short of breath. Sputum was positive for pseudomonas aeruginosa and the patient does not have any signs of pneumonia and is considered to be colonizer. No leukocytosis. No fever or chills. Creatinine is down to 1.3. The patient is still being diuresed IV Lasix. He is in a negative fluid balance. His pulse ox is 96% on 3. Dr. by nasal cannula. His temperature is afebrile at 7.4. No significant sputum production. Objective - Vital Signs Vital signs: Vital Signs Temp 97.4 F L 04/25/19 08:00 Pulse 67 04/25/19 11:38 Resp 18 04/25/19 11:38 BP 111/55 04/25/19 11:38 Pulse Ox 96 04/25/19 11:38 Intake & Output 04/24/19 04/25/19 04/25/19 18:59 06:59 18:59 Intake Total 585 222 Output Total 200 300 Balance 385 -78 Weight 63.4 kg Intake: Intake, IV Titration 50 Amount cefTRIAXone 1 gm In 50 Sodium Chloride 0.9% 50 ml @ 100 mls/hr IVPB Q24HR [facility] Rx#:[id number] Oral 535 222 Output: Urine 200 300 Other: Voiding Method Toilet Toilet Urinal # Voids 1 1 # Bowel Movements 1 - Exam Gen. appearance: A very pleasant 68-year-old gentleman. Frail, weak. On 3 L nasal cannula. Head exam was generally normal. There was no scleral icterus or corneal arcus. Mucous membranes were moist. Neck was supple and without jugular venous distension, thyromegaly, or carotid bruits. Carotids were easily palpable bilaterally. There was no adenopathy. Lungs sounds are diminished and with some bibasilar crackles. Cardiac exam revealed the PMI to be normally situated and sized. The rhythm was regular and no extrasystoles were noted during several minutes of auscultation. The first and second heart sounds were normal and physiologic splitting of the second heart sound was noted. There were no murmurs, rubs, clicks, or gallops. Pacemaker pocket is over the left anterior chest area Abdominal exam revealed normal bowel sounds. The abdomen was soft, non-tender, and without masses, organomegaly, or appreciable enlargement of the abdominal aorta. Right inguinal hernia wound is dry clean and intact at this point in time. No pain. No swelling. No drainage. Examination of the extremities revealed easily palpable radial, femoral and pedal pulses. There was no cyanosis, clubbing or edema. Examination of the skin revealed no evidence of significant rashes, suspicious appearing nevi or other concerning lesions. Neurologically is awake and alert and there is no focal neurological deficits. - Labs CBC & Chem 7: 04/23/19 07:04 04/23/19 07:04 Labs: Microbiology - Last 24 Hours (Table) 04/22/19 08:06 Gram Stain - Final Sputum Sputum Culture - Final Pseudomonas aeruginosa 04/21/19 17:45 Blood Culture - Preliminary Blood No Growth after 72 hours Assessment and Plan Plan: 1 acute decompensation of the chronic systolic heart failure. The patient is an ejection fraction of less than 30% along with secondary pulmonary hypertension. The patient is presenting with acute heart failure/pulmonary edema and his responding to diuretics. The patient was on IV Lasix. He responded very nicely. He was in a negative fluid balance. Shortness of breath improved. He is also known to have COPD and is currently inactive and stable. Pseudomonas in the sputum is likely a colonizer. 2 severe COPD with FEV1 of 22% of predicted 3 chronic hypoxic respiratory failure secondary to above 4 history of sick sinus syndrome 5 history of biventricular AICD placement regarding his severe cardiomyopathy 6 chronic stage III kidney disease 7 coronary artery disease with previous coronary intervention and stenting 8 paroxysmal atrial fibrillation 9 hypertension 10 hypothyroidism, TSH is within normal limits at 0.8. 11 osteoarthritis 12 Chronic anemia hematology is on the case. There is a drop in hemoglobin to these to be further monitored. May consider early myelodysplasia or anemia of chronic disease. 13 pseudomonas in the sputum, likely a colonizer Plan The patient is improving. Creatinine level is improving. Continue bronch odilators. Continue IV diuretics and switch this patient to oral diuretics at time of discharge. No need for antibiotics at this point in time. COPD stable. Continue bronchodilators. Continue Symbicort and resume all home medications at time of discharge. Discharged per medicine.
--- NOTE | 2019-04-25 14:44 | P.PN ---
Subjective This is Le Hernandez PA-C dictating a progress note on this patient The patient was interviewed and examined by me as well as by Dr. Bowden Case discussed with Dr. Bowden and he agrees with the plan of care IMPRESSION / ASSESSMENT: Acute on chronic systolic congestive heart failure, symptoms improved CAD status post stenting Ischemic cardiomyopathy status post ICD, EF 30-35% Paroxysmal atrial fibrillation Stage III kidney disease COPD PLAN: Patient is stable for discharge from a cardiac standpoint, recommend discharging on Lasix 60 mg PO to avoid fluid retention and CHF exacerbations HPI/interval history Patient is a 68-year-old male with a past medical history of CAD status post stenting, ischemic cardiomyopathy status post ICD, paroxysmal atrial fibrillation, and carotid disease who presented with increasing shortness of breath and was admitted for treatment of congestive heart failure exacerbation. He was diuresed with IV lasix. Patient seen and examined sitting in his chair. States his breathing has improved and he feels ready to go home. Left comfortably overnight, denies orthopnea or PND. Denies any chest pain, palpitations, dizziness. EXAMINATION Patient is afebrile, pulse 67, respirations 18, blood pressure 111/55, oxygen saturation 96% on 3 L nasal cannula patient seen and examined resting comfortably in his chair, in no acute distress Breath sounds mildly diminished bilaterally at the bases, few scattered crackles Heart is regular, systolic murmur appreciated at the apex No lower extremity edema REVIEW OF LABS, ECG Telemetry revealed sinus rhythm overnight No new labs today Objective - Vital Signs Vital signs: Vital Signs Temp 97.4 F L 04/25/19 08:00 Pulse 67 04/25/19 11:38 Resp 18 04/25/19 11:38 BP 111/55 04/25/19 11:38 Pulse Ox 96 04/25/19 11:38 Intake & Output 04/24/19 04/25/19 04/25/19 18:59 06:59 18:59 Intake Total 585 222 240 Output Total 200 300 150 Balance 385 -78 90 Weight 63.4 kg Intake: Intake, IV Titration 50 Amount cefTRIAXone 1 gm In 50 Sodium Chloride 0.9% 50 ml @ 100 mls/hr IVPB Q24HR FLORES Rx#:[id number] Oral 535 222 240 Output: Urine 200 300 150 Other: Voiding Method Toilet Toilet Urinal # Voids 1 1 1 # Bowel Movements 1 - Labs CBC & Chem 7: 04/23/19 07:04 04/23/19 07:04 Labs: Microbiology - Last 24 Hours (Table) 04/22/19 08:06 Gram Stain - Final Sputum Sputum Culture - Final Pseudomonas aeruginosa 04/21/19 17:45 Blood Culture - Preliminary Blood No Growth after 72 hours
== END 2019-04-25 14:11 | disposition home health service (06) | DRG 291 ==
LOC: EC 14:34 → 3SCARD 16:50
PROVIDERS: ADMIT Internal Medicine; ATTEND Internal Medicine
DX: I13.0 Hypertensive heart and chronic kidney disease with heart failure and stage 1 through stage 4 chronic kidney disease, or unspecified chronic kidney disease (principal); I50.23 Acute on chronic systolic (congestive) heart failure; J44.0 Chronic obstructive pulmonary disease with (acute) lower respiratory infection; J44.1 Chronic obstructive pulmonary disease with (acute) exacerbation; J96.11 Chronic respiratory failure with hypoxia; N18.3 Chronic kidney disease, stage 3 (moderate); I48.2 Chronic atrial fibrillation; D63.1 Anemia in chronic kidney disease; G47.00 Insomnia, unspecified; E78.5 Hyperlipidemia, unspecified; I45.10 Unspecified right bundle-branch block; M10.9 Gout, unspecified; I25.5 Ischemic cardiomyopathy; J20.9 Acute bronchitis, unspecified; E87.5 Hyperkalemia; I25.10 Atherosclerotic heart disease of native coronary artery without angina pectoris; E03.9 Hypothyroidism, unspecified; I44.0 Atrioventricular block, first degree; H26.9 Unspecified cataract; M19.90 Unspecified osteoarthritis, unspecified site; D47.2 Monoclonal gammopathy; D75.89 Other specified diseases of blood and blood-forming organs; I27.29 Other secondary pulmonary hypertension; Z87.891 Personal history of nicotine dependence; Z79.890 Hormone replacement therapy; Z79.899 Other long term (current) drug therapy; Z95.5 Presence of coronary angioplasty implant and graft; I25.2 Old myocardial infarction; Z86.14 Personal history of Methicillin resistant Staphylococcus aureus infection; Z95.810 Presence of automatic (implantable) cardiac defibrillator; Z79.82 Long term (current) use of aspirin; Z79.02 Long term (current) use of antithrombotics/antiplatelets; Z79.51 Long term (current) use of inhaled steroids; Z99.81 Dependence on supplemental oxygen; Z80.3 Family history of malignant neoplasm of breast; Z80.52 Family history of malignant neoplasm of bladder; Z82.49 Family history of ischemic heart disease and other diseases of the circulatory system; Z87.01 Personal history of pneumonia (recurrent); Z86.19 Personal history of other infectious and parasitic diseases
CPT/HCPCS: 36415; 71046; 80048; 80053; 83735; 83880; 84443; 84484; 84550; 85025; 85610; 85730; 87040; 87070; 87077; 87186; 87205; 93005; 93306; 94640; 94760; 96374; 99285

== ENCOUNTER 2019-05-04 10:06 | Inpatient (IN) | payer MEDICARE, OTHER ==
[2019-05-04] MEDS ORDERED: methylPREDNISolone SOD SUCCI 125 MG/2 ML VIAL IV STA (10:39)
[2019-05-04] MEDS ORDERED: IPRATROPIUM 0.5 MG/2.5 ML NEBU INHALATION STA (10:39)
[2019-05-04] MEDS ORDERED: ALBUTEROL NEBULIZED 2.5 MG/3 ML INHALATION STA (10:39)
--- NOTE | 2019-05-04 10:44 | ED ---
General Adult HPI - General Chief complaint: Shortness of Breath Stated complaint: aryan Time Seen by Provider: 05/04/19 10:10 Source: patient, EMS, RN notes reviewed Mode of arrival: EMS Limitations: no limitations - History of Present Illness Initial comments: This is a 68-year-old male who presents emergency Department complaining of difficulty breathing. Patient has a past medical history significant for COPD and congestive heart. According to the family member the room he just was released from the hospital recently for CHF and was sent home with an antibiotic and she believes Cipro. Patient denies any recent fever chills or cough. Patient denies any chest pain or palpitations. Patient denies any abdominal pain patient denies nausea vomiting diarrhea. Patient denies being lightheaded dizzy or having any syncopal or near syncopal episodes. Patient denies any numbness or weakness. - Related Data Home Medications Medication Instructions Recorded Confirmed Multivitamins, Thera [Multivitamin 1 tab PO HS 06/24/15 05/04/19 (formulary)] Aspirin 81 mg PO DAILY 09/04/15 05/04/19 Budesonide/Formoterol Fumarate 2 puff INHALATION RT-BID 09/29/15 05/04/19 [Symbicort 160-4.5 Mcg Inhaler] Ferrous Sulfate [Iron (65 MG 325 mg PO BID 10/04/15 05/04/19 Elemental)] Ipratropium-Albuterol Nebulize 3 ml INHALATION RT-QID PRN 10/29/16 05/04/19 [Duoneb 0.5 mg-3 mg/3 ml Soln] Pantoprazole [Protonix] 40 mg PO DAILY 10/29/16 05/04/19 Docusate [Colace] 100 mg PO HS 12/13/17 05/04/19 Folic Acid 0.8 mg PO HS 12/13/17 05/04/19 Metoprolol Tartrate [Lopressor] 25 mg PO BID 12/13/17 05/04/19 Albuterol Inhaler [Ventolin Hfa 1 - 2 puff INHALATION RT-Q6H PRN 02/16/19 05/04/19 Inhaler] Allopurinol [Zyloprim] 100 mg PO HS 02/16/19 05/04/19 Cyanocobalamin (Vitamin B-12) 1,000 mcg PO DAILY 02/16/19 05/04/19 [Vitamin B-12] L.acidoph,Paracasei, B.lactis 1 cap PO HS 02/16/19 05/04/19 [Probiotic] Cholecalciferol [Vitamin D3 (25 1,000 unit PO HS 02/20/19 05/04/19 Mcg = 1000 Iu)] Levothyroxine Sodium [Synthroid] 175 mcg PO DAILY 02/20/19 05/04/19 Furosemide [Lasix] 40 mg PO BID 05/04/19 05/04/19 Spironolactone [Aldactone] 12.5 mg PO DAILY 05/04/19 05/04/19 Previous Rx's Medication Instructions Recorded Atorvastatin [Lipitor] 40 mg PO HS tab 09/22/15 Clopidogrel [Plavix] 75 mg PO DAILY tab 09/22/15 Amiodarone [Cordarone] 200 mg PO DAILY #30 tab 02/22/19 Ciprofloxacin HCl [Cipro] 500 mg PO BID 5 Days #10 tab 04/25/19 Zolpidem [Ambien] 5 mg PO HS PRN #30 tab 04/25/19 Allergies Allergy/AdvReac Type Severity Reaction Status Date / Time haloperidol [From Haldol] AdvReac Confusion Verified 05/04/19 10:35 Review of Systems ROS Statement: Those systems with pertinent positive or pertinent negative responses have been documented in the HPI. ROS Other: All systems not noted in ROS Statement are negative. Past Medical History Past Medical History: Heart Failure, COPD, Hypertension, Myocardial Infarction ([place]), Renal Disease, Thyroid Disorder, Hypertension, Myocardial Infarction ([place]), Thyroid Disorder Additional Past Medical History / Comment(s): Coronary artery disease, history of severe ischemic cardiomyopathy with systolic heart failure and ejection fraction of 30-35%, sick sinus syndrome, history of coronary artery disease, hypothyroidism, cataracts, chronic anemia, chronic kidney disease, history of insertion of a biventricular dual-chamber AICD, paroxysmal atrial fibrillation, chronic anemia, hypertension Last Myocardial Infarction Date:: 06/24/15 History of Any Multi-Drug Resistant Organisms: C-DIFF, MRSA Date of last positivie culture/infection: 2015 MDRO Source:: sacral wound Past Surgical History: Heart Catheterization With Stent, Orthopedic Surgery, Pacemaker Additional Past Surgical History / Comment(s): 1996 L shoulder rotator cuff surgery, colonoscopy with benign polypectomy.heart stent x1, sacral wound debridement with wound vac in 09/2015 Past Anesthesia/Blood Transfusion Reactions: No Reported Reaction Additional Past Anesthesia/Blood Transfusion Reaction / Comment(s): Pt has never received blood. Date of Last Stent Placement:: 06/2015 Type of Cardiac Device: Permanent Pacemaker Device Placement Date:: 11/25/2016 Past Psychological History: No Psychological Hx Reported Smoking Status: Former smoker Past Alcohol Use History: None Reported Past Drug Use History: None Reported - Past Family History Father Family Medical History: Cancer, Coronary Artery Disease (CAD), Myocardial Infarction ([place]) Additional Family Medical History / Comment(s): Father at age 86yrs. He had a CABG. Bladder cancer. Mother Family Medical History: Cancer Additional Family Medical History / Comment(s): Mother in her 30's of breast cancer. General Exam - General Exam Comments Initial Comments: GENERAL: Patient is well-developed and well-nourished. Patient is nontoxic and well- hydrated and is in mild distress. ENT: Neck is soft and supple. No significant lymphadenopathy is noted. Oropharynx is clear. Moist mucous membranes. Neck has full range of motion without eliciting any pain. EYES: The sclera were anicteric and conjunctiva were pink and moist. Extraocular movements were intact and pupils were equal round and reactive to light. Eyelids were unremarkable. PULMONARY: Diffuse expiratory wheezing. CARDIOVASCULAR: There is a regular rate and rhythm without any murmurs gallops or rubs. ABDOMEN: Soft and nontender with normal bowel sounds. SKIN: Skin is clear with no lesions or rashes and otherwise unremarkable. NEUROLOGIC: Patient is alert and oriented x3. Cranial nerves II through XII are grossly intact. Motor and sensory are also intact. Normal speech, volume and content. Symmetrical smile. MUSCULOSKELETAL: Normal extremities with adequate strength and full range of motion. LYMPHATICS: No significant lymphadenopathy is noted PSYCHIATRIC: Normal psychiatric evaluation. Limitations: no limitations Course Vital Signs 05/04/19 05/04/19 05/04/19 10:08 11:10 11:25 Temperature 98.3 F Pulse Rate 70 73 77 Respiratory 16 Rate Blood Pressure 131/74 O2 Sat by Pulse 94 L Oximetry 05/04/19 05/04/19 11:55 12:24 Temperature Pulse Rate 81 82 Respiratory 17 Rate Blood Pressure 118/70 O2 Sat by Pulse 86 L Oximetry Medical Decision Making - Medical Decision Making EKG shows sinus rhythm at 77 bpm AK interval is 236 dresses 180 QT interval 464 QTC is 525. Patient has a right bundle branch block. Patient has no significant ST segment elevation. I compared to the old EKG and shows no acute changes. Patient's chest x-ray shows pulmonary edema. I started the patient Lasix and nitroglycerin. I spoke with Dr. Finney he agreed to admit the patient admitted the patient I consulted Dr. Maria and cardiology. I continued Lasix on the floor I went back into reevaluate the patient he was feeling better he was oxygenating well on 4 L and when I listen to him he was not wheezing is much. - Lab Data Result diagrams: 05/04/19 11:29 05/04/19 11:29 Lab Results 05/04/19 05/04/19 05/04/19 Range/Units 11:29 11:29 11:29 WBC 8.4 (3.8-10.6) k/uL RBC 2.81 L (4.30-5.90) m/uL Hgb 9.2 L (13.0-17.5) gm/dL Hct 29.2 L (39.0-53.0) % MCV 103.9 H (80.0-100.0) fL MCH 32.9 (25.0-35.0) pg MCHC 31.6 (31.0-37.0) g/dL RDW 15.8 H (11.5-15.5) % Plt Count 346 (150-450) k/uL Neutrophils % 90 % Lymphocytes % 3 % Monocytes % 4 % Eosinophils % 1 % Basophils % 0 % Neutrophils # 7.5 (1.3-7.7) k/uL Lymphocytes # 0.3 L (1.0-4.8) k/uL Monocytes # 0.4 (0-1.0) k/uL Eosinophils # 0.1 (0-0.7) k/uL Basophils # 0.0 (0-0.2) k/uL Hypochromasia Marked Macrocytosis Moderate PT (9.0-12.0) sec INR (<1.2) APTT (22.0-30.0) sec Sodium 132 L (137-145) mmol/L Potassium 4.9 (3.5-5.1) mmol/L Chloride 84 L (98-107) mmol/L Carbon Dioxide 40 H (22-30) mmol/L Anion Gap 8 mmol/L BUN 39 H (9-20) mg/dL Creatinine 1.69 H (0.66-1.25) mg/dL Est GFR (CKD-EPI)AfAm 48 (>60 ml/min/1.73 sqM) Est GFR (CKD-EPI)NonAf 42 (>60 ml/min/1.73 sqM) Glucose 122 H (74-99) mg/dL Calcium 9.1 (8.4-10.2) mg/dL Magnesium 2.1 (1.6-2.3) mg/dL Total Bilirubin 0.6 (0.2-1.3) mg/dL AST 30 (17-59) U/L ALT 31 (21-72) U/L Alkaline Phosphatase 77 (38-126) U/L Troponin I (0.000-0.034) ng/mL NT-Pro-B Natriuret Pep 19791 pg/mL Total Protein 6.8 (6.3-8.2) g/dL Albumin 3.6 (3.5-5.0) g/dL 05/04/19 05/04/19 Range/Units 11:29 11:29 WBC (3.8-10.6) k/uL RBC (4.30-5.90) m/uL Hgb (13.0-17.5) gm/dL Hct (39.0-53.0) % MCV (80.0-100.0) fL MCH (25.0-35.0) pg MCHC (31.0-37.0) g/dL RDW (11.5-15.5) % Plt Count (150-450) k/uL Neutrophils % % Lymphocytes % % Monocytes % % Eosinophils % % Basophils % % Neutrophils # (1.3-7.7) k/uL Lymphocytes # (1.0-4.8) k/uL Monocytes # (0-1.0) k/uL Eosinophils # (0-0.7) k/uL Basophils # (0-0.2) k/uL Hypochromasia Macrocytosis PT 10.9 (9.0-12.0) sec INR 1.0 (<1.2) APTT 27.6 (22.0-30.0) sec Sodium (137-145) mmol/L Potassium (3.5-5.1) mmol/L Chloride (98-107) mmol/L Carbon Dioxide (22-30) mmol/L Anion Gap mmol/L BUN (9-20) mg/dL Creatinine (0.66-1.25) mg/dL Est GFR (CKD-EPI)AfAm (>60 ml/min/1.73 sqM) Est GFR (CKD-EPI)NonAf (>60 ml/min/1.73 sqM) Glucose (74-99) mg/dL Calcium (8.4-10.2) mg/dL Magnesium (1.6-2.3) mg/dL Total Bilirubin (0.2-1.3) mg/dL AST (17-59) U/L ALT (21-72) U/L Alkaline Phosphatase (38-126) U/L Troponin I 0.036 H* (0.000-0.034) ng/mL NT-Pro-B Natriuret Pep pg/mL Total Protein (6.3-8.2) g/dL Albumin (3.5-5.0) g/dL Critical Care Time Critical Care Time: Yes Total Critical Care Time: 35 Disposition Clinical Impression: Acute pulmonary edema, Acute exacerbation of chronic obstructive airways disease Disposition: ADMITTED IP TO THIS HOSP Referrals: Jovanni Finney MD [Primary Care Provider] - 1-2 days Time of Disposition: 13:45
[2019-05-04 11:39] LABS: Basophils % (A) 0 %; Eosinophils # (A) 0.1 k/uL (0-0.7); Eosinophils % (A) 1 %; HCT 29.2 % (39.0-53.0); HGB 9.2 gm/dL (13.0-17.5); Hypochromasia Marked; Lymphocytes # (A) 0.3 k/uL (1.0-4.8); Lymphocytes % (A) 3 %; MCH 32.9 pg (25.0-35.0); MCHC 31.6 g/dL (31.0-37.0); MCV 103.9 fL (80.0-100.0); Macrocytosis Moderate; Mean Platelet Volume 7.2; Monocytes # (A) 0.4 k/uL (0-1.0); Monocytes % (A) 4 %; Neutrophils # (A) 7.5 k/uL (1.3-7.7); Neutrophils % (A) 90 %; Platelet Count 346 k/uL (150-450); RBC 2.81 m/uL (4.30-5.90); RDW 15.8 % (11.5-15.5); WBC 8.4 k/uL (3.8-10.6)
[2019-05-04 11:52] LABS: Albumin 3.6 g/dL (3.5-5.0); Calcium 9.1 mg/dL (8.4-10.2); Magnesium 2.1 mg/dL (1.6-2.3); Potassium 4.9 mmol/L (3.5-5.1); Total Bilirubin 0.6 mg/dL (0.2-1.3); Total Protein 6.8 g/dL (6.3-8.2)
[2019-05-04 12:00] LABS: Partial Thromboplastin Time 27.6 sec (22.0-30.0); Prothrombin Time 10.9 sec (9.0-12.0)
--- NOTE | 2019-05-04 12:13 | XR ---
EXAMINATION TYPE: XR chest 2V DATE OF EXAM: 05/04/2019 COMPARISON: Chest x-ray from 10 days ago. HISTORY: History of COPD with difficulty in breathing. TECHNIQUE: Frontal and lateral views of the chest are obtained. FINDINGS: The cardiac silhouette size remains enlarged with dual lead pacemaker/AICD. There is backgr ound chronic emphysematous change with worsening small right pleural effusion and associated right mi ddle and lower lobe acute infiltrate and/or atelectasis . Improving left basilar opacity and effusion is seen. Some increasing interstitial prominence is noted. The osseous structures remain deminerali zed. IMPRESSION: Background cardiomegaly and chronic emphysematous change with increasing interstitial ed hawk. There is improving left-sided effusion and associated left basilar infiltrate and/or atelectasis but there is worsening small right pleural effusion and associated right middle and lower lobe acute infiltrate and/or atelectasis.
[2019-05-04] MEDS ORDERED: FUROSEMIDE 10 MG/ML 10 ML VIAL IV STA (13:09)
[2019-05-04] MEDS: NITROGLYCERIN OINT 1 INCH/GM PACKET TOPICAL STA ×2 (13:19→13:22)
[2019-05-04] MEDS ORDERED: IPRATROPIUM-ALBUTEROL 3 ML NEB INHALATION PRN (16:47)
[2019-05-04] MEDS ORDERED: FUROSEMIDE 40 MG TAB PO SCH (18:00)
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
[2019-05-04] MEDS: IPRATROPIUM-ALBUTEROL 3 ML NEB INHALATION SCH ×2 (19:03→23:32)
[2019-05-04] MEDS: SYMBICORT 160-4.5 MCG INHALER INHALATION SCH (19:04)
[2019-05-04] MEDS: methylPREDNISolone SOD SUCCI 125 MG/2 ML VIAL IV SCH ×2 (19:06→23:30)
[2019-05-04] MEDS: NITROGLYCERIN OINT 1 INCH/GM PACKET TOPICAL SCH ×2 (19:07→22:10)
[2019-05-04 22:09] LABS: Glucose,Whole Blood 155 mg/dL (75-99)
[2019-05-04] MEDS: FOLIC ACID 1 MG TAB PO SCH (22:10)
[2019-05-04] MEDS: FERROUS SULFATE 325 MG TAB PO SCH (22:10)
[2019-05-04] MEDS: DOCUSATE 100 MG CAP PO SCH (22:10)
[2019-05-04] MEDS: ALLOPURINOL 100 MG TAB PO SCH (22:10)
[2019-05-04] MEDS: MULTIVITAMINS, THERA 1 EACH TAB PO SCH (22:10)
[2019-05-04] MEDS: CIPROFLOXACIN HCL 500 MG TAB PO SCH (22:10)
[2019-05-04] MEDS: ATORVASTATIN 40 MG TAB PO SCH (22:10)
[2019-05-04] MEDS: CHOLECALCIFEROL 1,000 UNIT TAB PO SCH (22:10)
[2019-05-04] MEDS: LACTOBACILLUS ACIDOPH & BULGAR 1 EACH PACKET PO SCH (22:11)
[2019-05-04] MEDS: INSULIN ASPART (NovoLOG) 100 UNIT/ML VIAL SQ SCH (22:11)
[2019-05-04] MEDS: METOPROLOL TARTRATE 25 MG TAB PO SCH (22:11)
[2019-05-04] MEDS: FUROSEMIDE 10 MG/ML 4 ML VIAL IV SCH (22:40)
[2019-05-05] MEDS ORDERED: IPRATROPIUM-ALBUTEROL 3 ML NEB ONE (04:00)
[2019-05-05] MEDS: FUROSEMIDE 10 MG/ML 4 ML VIAL IV SCH ×3 (06:12→20:55)
[2019-05-05 06:19] LABS: Glucose,Whole Blood 131 mg/dL (75-99)
[2019-05-05] MEDS: IPRATROPIUM-ALBUTEROL 3 ML NEB INHALATION SCH ×6 (06:28→23:16)
[2019-05-05] MEDS: INSULIN ASPART (NovoLOG) 100 UNIT/ML VIAL SQ SCH ×4 (06:40→21:50)
[2019-05-05] MEDS: PANTOPRAZOLE 40 MG TABLET PO SCH (06:41)
[2019-05-05] MEDS: LEVOTHYROXINE 100 MCG TAB PO SCH (06:41)
[2019-05-05] MEDS: LEVOTHYROXINE 75 MCG TAB PO SCH (06:41)
[2019-05-05] MEDS: methylPREDNISolone SOD SUCCI 125 MG/2 ML VIAL IV SCH ×4 (06:41→23:15)
[2019-05-05] MEDS: SYMBICORT 160-4.5 MCG INHALER INHALATION SCH ×2 (08:07→19:44)
--- NOTE | 2019-05-05 08:46 | P.CRDCN ---
History of Present Illness Consult date: 05/05/19 Requesting physician: Jovanni Finney Consult reason: shortness of breath Chief complaint: Shortness of breath History of present illness: This is a pleasant 68-year-old gentleman who follows regularly with Dr. Lindo in the office. He has a known history of coronary artery disease with prior left main stenting, carotid artery disease, paroxysmal atrial fibrillation, ischemic cardio myopathy with prior AICD, hypothyroidism, COPD, chronic anemia, chronic kidney disease, had a recent hospitalization earlier on this month with heart failure exacerbation. Presents to the hospital on this occasion again with symptoms of worsening shortness of breath. The patient states he had recently been to see Dr. Lindo in the office, he told him that he is just been feeling extremely weak and fatigued, and subsequent to that became more and more short of breath. Patient came to the emergency room for this reason, he was given a breathing treatment as well as some inhalers, states that he did start to feel somewhat better. His chest x-ray on presentation here showed cardiomegaly and chronic emphysema change with increasing interstitial edema, there is improving left-sided effusion associated with left basilar infiltrate and atelectasis but worsening small right pleural effusion and a ssociated right middle and lower lobe acute infiltrate or atelectasis. His EKG on presentation here showed a normal sinus rhythm with a first-degree AV block, right bundle branch block pattern. White blood cell count 8.4, hemoglobin 9.2, platelet count 346. Sodium 132, potassium 4.9, BUN 39 and creatinine 1.6. Troponin 0.036, 0.033, 0.033. BNP level 14,500. Patient was given a dose of 60 mg IV Lasix in the emergency room and is currently on 40 IV every 8 hourly. His weight is down 1 kg from admission. Past Medical History Past Medical History: Heart Failure, COPD, Hypertension, Myocardial Infarction (RI), Renal Disease, Thyroid Disorder, Hypertension, Myocardial Infarction (RI), Thyroid Disorder Additional Past Medical History / Comment(s): Coronary artery disease, history of severe ischemic cardiomyopathy with systolic heart failure and ejection fraction of 30-35%, sick sinus syndrome, history of coronary artery disease, hypothyroidism, cataracts, chronic anemia, chronic kidney disease, history of insertion of a biventricular dual-chamber AICD, paroxysmal atrial fibrillation, chronic anemia, hypertension Last Myocardial Infarction Date:: 06/24/15 History of Any Multi-Drug Resistant Organisms: C-DIFF, MRSA Date of last positivie culture/infection: 2015 MDRO Source:: sacral wound Past Surgical History: Heart Catheterization With Stent, Orthopedic Surgery, Pacemaker Additional Past Surgical History / Comment(s): 1996 L shoulder rotator cuff surgery, colonoscopy with benign polypectomy.heart stent x1, sacral wound debridement with wound vac in 09/2015 Past Anesthesia/Blood Transfusion Reactions: No Reported Reaction Additional Past Anesthesia/Blood Transfusion Reaction / Comment(s): Pt has never received blood. Date of Last Stent Placement:: 06/2015 Type of Cardiac Device: Permanent Pacemaker Device Placement Date:: 11/25/2016 Past Psychological History: No Psychological Hx Reported Smoking Status: Former smoker Past Alcohol Use History: None Reported Past Drug Use History: None Reported - Past Family History Father Family Medical History: Cancer, Coronary Artery Disease (CAD), Myocardial Infarction (RI) Additional Family Medical History / Comment(s): Father at age 86yrs. He had a CABG. Bladder cancer. Mother Family Medical History: Cancer Additional Family Medical History / Comment(s): Mother in her 30's of breast cancer. Medications and Allergies Home Medications Medication Instructions Recorded Confirmed Type Multivitamins, Thera [Multivitamin 1 tab PO HS 06/24/15 05/04/19 History (formulary)] Aspirin 81 mg PO DAILY 09/04/15 05/04/19 History Atorvastatin [Lipitor] 40 mg PO HS tab 09/22/15 05/04/19 Rx Clopidogrel [Plavix] 75 mg PO DAILY tab 09/22/15 05/04/19 Rx Budesonide/Formoterol Fumarate 2 puff INHALATION RT-BID 09/29/15 05/04/19 History [Symbicort 160-4.5 Mcg Inhaler] Ferrous Sulfate [Iron (65 MG 325 mg PO BID 10/04/15 05/04/19 History Elemental)] Ipratropium-Albuterol Nebulize 3 ml INHALATION RT-QID PRN 10/29/16 05/04/19 History [Duoneb 0.5 mg-3 mg/3 ml Soln] Pantoprazole [Protonix] 40 mg PO DAILY 10/29/16 05/04/19 History Docusate [Colace] 100 mg PO HS 12/13/17 05/04/19 History Folic Acid 0.8 mg PO HS 12/13/17 05/04/19 History Metoprolol Tartrate [Lopressor] 25 mg PO BID 12/13/17 05/04/19 History Albuterol Inhaler [Ventolin Hfa 1 - 2 puff INHALATION RT-Q6H PRN 02/16/19 05/04/19 History Inhaler] Allopurinol [Zyloprim] 100 mg PO HS 02/16/19 05/04/19 History Cyanocobalamin (Vitamin B-12) 1,000 mcg PO DAILY 02/16/19 05/04/19 History [Vitamin B-12] L.acidoph,Paracasei, B.lactis 1 cap PO HS 02/16/19 05/04/19 History [Probiotic] Cholecalciferol [Vitamin D3 (25 1,000 unit PO HS 02/20/19 05/04/19 History Mcg = 1000 Iu)] Levothyroxine Sodium [Synthroid] 175 mcg PO DAILY 02/20/19 05/04/19 History Amiodarone [Cordarone] 200 mg PO DAILY #30 tab 02/22/19 05/04/19 Rx Ciprofloxacin HCl [Cipro] 500 mg PO BID 5 Days #10 tab 04/25/19 05/04/19 Rx Zolpidem [Ambien] 5 mg PO HS PRN #30 tab 04/25/19 05/04/19 Rx Furosemide [Lasix] 40 mg PO BID 05/04/19 05/04/19 History Spironolactone [Aldactone] 12.5 mg PO DAILY 05/04/19 05/04/19 History Allergies Allergy/AdvReac Type Severity Reaction Status Date / Time haloperidol [From Haldol] AdvReac Confusion Verified 05/04/19 10:35 Physical Exam Vitals: Vital Signs Temp Pulse Pulse Resp BP BP Pulse Ox 05/05/19 08:09 76 96 05/05/19 08:00 97.8 F 78 20 109/64 96 05/05/19 04:09 83 05/05/19 04:00 98.3 F 74 16 110/62 90 L 05/05/19 03:59 79 05/05/19 00:00 84 16 101/49 92 L 05/04/19 23:42 88 16 05/04/19 23:32 86 16 05/04/19 20:00 98.0 F 80 18 101/57 94 L 05/04/19 19:16 86 05/04/19 19:09 93 L 05/04/19 19:06 83 05/04/19 18:58 84 16 119/56 92 L 05/04/19 16:11 84 19 120/75 94 L 05/04/19 12:24 82 17 118/70 86 L 05/04/19 11:55 81 05/04/19 11:25 77 05/04/19 11:10 73 05/04/19 10:08 98.3 F 70 16 131/74 94 L Intake and Output 05/04/19 05/05/19 05/05/19 22:59 06:59 14:59 Intake Total 222 0 Output Total 225 200 200 Balance -3 -200 -200 Intake: Oral 222 0 Output: Urine 225 200 200 Other: Voiding Method Urinal # Voids 1 Weight 62.1 kg PHYSICAL EXAMINATION: GENERAL: 68-year-old gentleman in no acute distress at the time of my examination HEENT: Head is atraumatic, normocephalic. Pupils equal, round. Sclera anicteric. Conjunctiva are clear. Mucous membranes of the mouth are moist. Neck is supple. There is elevated jugular venous pressure. No carotid bruit is heard. HEART EXAMINATION: Heart S1 S2 1 systolic murmur is heard CHEST EXAMINATION:'s reveal decreased air exchange, fine expiratory wheezes and diminished air entry to the bases bilaterally. ABDOMEN: Soft, nontender. Bowel sounds are heard. No organomegaly noted. EXTREMITIES: 2+ peripheral pulses with no evidence of peripheral edema and no calf tenderness noted. NEUROLOGIC patient is awake, alert and oriented 3 . . Results 05/05/19 08:57 05/05/19 08:57 Cardiac Enzymes 05/04/19 05/04/19 05/04/19 Range/Units 11:29 11:29 18:44 AST 30 (17-59) U/L Troponin I 0.036 H* 0.033 (0.000-0.034) ng/mL 05/05/19 Range/Units 01:01 AST (17-59) U/L Troponin I 0.033 (0.000-0.034) ng/mL Coagulation 05/04/19 Range/Units 11:29 PT 10.9 (9.0-12.0) sec APTT 27.6 (22.0-30.0) sec CBC 05/04/19 Range/Units 11:29 WBC 8.4 (3.8-10.6) k/uL RBC 2.81 L (4.30-5.90) m/uL Hgb 9.2 L (13.0-17.5) gm/dL Hct 29.2 L (39.0-53.0) % Plt Count 346 (150-450) k/uL Comprehensive Metabolic Panel 05/04/19 Range/Units 11:29 Sodium 132 L (137-145) mmol/L Potassium 4.9 (3.5-5.1) mmol/L Chloride 84 L (98-107) mmol/L Carbon Dioxide 40 H (22-30) mmol/L BUN 39 H (9-20) mg/dL Creatinine 1.69 H (0.66-1.25) mg/dL Glucose 122 H (74-99) mg/dL Calcium 9.1 (8.4-10.2) mg/dL AST 30 (17-59) U/L ALT 31 (21-72) U/L Alkaline Phosphatase 77 (38-126) U/L Total Protein 6.8 (6.3-8.2) g/dL Albumin 3.6 (3.5-5.0) g/dL Current Medications Generic Name Dose Route Start Last Admin Trade Name Freq PRN Reason Stop Dose Admin Albuterol/Ipratropium 3 ml 05/04/19 20:00 05/05/19 08:07 Duoneb 0.5 Mg-3 Mg/3 Ml Soln INHALATION 3 ml RT-Q4H FLORES Administration Allopurinol 100 mg 05/04/19 21:00 05/04/19 22:10 Zyloprim PO 100 mg HS FLORES Administration Amiodarone HCl 200 mg 05/05/19 09:00 Cordarone PO DAILY FLORSE Aspirin 81 mg 05/05/19 09:00 Aspirin PO DAILY FLORES Atorvastatin Calcium 40 mg 05/04/19 21:00 05/04/19 22:10 Lipitor PO 40 mg HS FLORES Administration Budesonide/Formoterol Fumarate 2 puff 05/04/19 20:00 05/05/19 08:07 Symbicort 160-4.5 Mcg Inhaler INHALATION 2 puff RT-BID FLORES Administration Cholecalciferol 1,000 unit 05/04/19 21:00 05/04/19 22:10 Vitamin D3 (25 Mcg = 1000 Iu) PO 1,000 unit HS FLORES Administration Ciprofloxacin 500 mg 05/04/19 21:00 05/04/19 22:10 Cipro PO 500 mg BID FLORES Administration Clopidogrel Bisulfate 75 mg 05/05/19 09:00 Plavix PO DAILY FLORES Cyanocobalamin 1,000 mcg 05/05/19 09:00 Vitamin B-12 PO DAILY FLORES Docusate Sodium 100 mg 05/04/19 21:00 05/04/19 22:10 Colace PO 100 mg HS FLORES Administration Ferrous Sulfate 325 mg 05/04/19 21:00 05/04/19 22:10 Feosol PO 325 mg BID FLORES Administration Folic Acid 1 mg 05/04/19 21:00 05/04/19 22:10 Folic Acid PO 1 mg HS FLORES Administration Furosemide 40 mg 05/04/19 21:00 05/05/19 06:12 Lasix IV 40 mg Q8H FLORES Administration Furosemide 40 mg 05/04/19 18:00 05/04/19 19:05 Lasix PO Not Given BID@0900,1600 [facility] Insulin Aspart 0 unit 05/04/19 21:00 05/05/19 06:40 Novolog SQ Not Given ACHS [facility] Protocol Lactobacillus Acidoph/Bulgaricus 1 each 05/04/19 21:00 05/04/19 22:11 Lactinex PO 1 each HS FLORES Administration Levothyroxine Sodium 100 mcg 05/05/19 06:30 05/05/19 06:41 Synthroid PO 100 mcg DAILY@0630 FLORES Administration Levothyroxine Sodium 75 mcg 05/05/19 06:30 05/05/19 06:41 Synthroid PO 75 mcg DAILY@0630 FLORES Administration Methylprednisolone Sodium Succinate 60 mg 05/04/19 18:00 05/05/19 06:41 Solu-Medrol IV 60 mg Q6HR FLORES Administration Metoprolol Tartrate 25 mg 05/04/19 21:00 05/04/19 22:11 Lopressor PO 25 mg BID FLORES Administration Multivitamins 1 each 05/04/19 21:00 05/04/19 22:10 Theragran PO 1 each HS FLORES Administration Nitroglycerin 1 inch 05/04/19 18:00 05/04/19 22:10 Nitro-Bid Oint TOPICAL 1 inch QID FLORES Administration Pantoprazole Sodium 40 mg 05/05/19 07:30 05/05/19 06:41 Protonix PO 40 mg AC-[id number] FLORES Administration Spironolactone 12.5 mg 05/05/19 09:00 Aldactone PO DAILY FLORES Zolpidem Tartrate 5 mg 05/04/19 16:47 Ambien PO HS PRN Insomnia Intake and Output 05/04/19 05/05/19 05/05/19 22:59 06:59 14:59 Intake Total 222 0 Output Total 225 200 200 Balance -3 -200 -200 Intake: Oral 222 0 Output: Urine 225 200 200 Other: Voiding Method Urinal # Voids 1 Weight 62.1 kg 05/04/19 11:29 05/04/19 11:29 EKG Interpretations (text) EKG shows a normal sinus rhythm with first-degree AV block and right bundle branch block pattern. Assessment and Plan Plan: Assessment and plan #1 shortness of breath with combination of systolic congestive heart failure acute on chronic and COPD exacerbation #2 ischemic cardio myopathy with prior AICD implantation #3 coronary artery disease with prior left main stenting #4 COPD #5 hypertension #6 chronic kidney disease #7 hyperlipidemia #8 hypothyroidism #9 paroxysmal atrial fibrillation #10 chronic anemia Plan Patient had an echocardiogram with Doppler study performed on the 15th of this month which revealed an ejection fraction of 30-35%, moderate mitral regurgitation, moderate pulmonary hypertension. We will not repeat an echo on this admission. We'll continue to diurese the patient with IV Lasix. Continue to monitor intake and output along with daily weights and daily lytes BUN and creatinine. Continue baby aspirin, Lipitor, Plavix, metoprolol, amiodarone, discontinue Nitropaste. The patient had not been on an MAT inhibitor recently because of abnormal renal function, at his recent visit in the office with Dr. Lindo he had been resumed on 2-1/2 twice a day. At this point in time he is not currently on an MAT inhibitor we will continue to monitor his renal function, if it remains stable we'll make consider the addition of Entresto. DNP note has been reviewed, I agree with a documented findings and plan of care. Patient was seen and examined.
[2019-05-05] MEDS: METOPROLOL TARTRATE 25 MG TAB PO SCH ×2 (09:05→20:54)
[2019-05-05] MEDS: ASPIRIN 81 MG PO SCH (09:05)
[2019-05-05] MEDS: CYANOCOBALAMIN 500 MCG TAB PO SCH (09:05)
[2019-05-05] MEDS: SPIRONOLACTONE 25 MG TAB PO SCH (09:05)
[2019-05-05] MEDS: CLOPIDOGREL 75 MG TAB PO SCH (09:06)
[2019-05-05] MEDS: FERROUS SULFATE 325 MG TAB PO SCH ×2 (09:06→20:53)
[2019-05-05] MEDS: AMIODARONE 200 MG TAB PO SCH (09:06)
[2019-05-05] MEDS: CIPROFLOXACIN HCL 500 MG TAB PO SCH ×2 (09:06→20:54)
[2019-05-05 10:08] LABS: Anisocytosis Slight; Basophils % (A) 0 %; Eosinophils % (A) 0 %; HCT 26.2 % (39.0-53.0); HGB 8.2 gm/dL (13.0-17.5); Hypochromasia Moderate; Lymphocytes # (A) 0.2 k/uL (1.0-4.8); Lymphocytes % (A) 4 %; MCH 32.2 pg (25.0-35.0); MCHC 31.3 g/dL (31.0-37.0); MCV 102.8 fL (80.0-100.0); Macrocytosis Moderate; Mean Platelet Volume 7.8; Monocytes # (A) 0.3 k/uL (0-1.0); Monocytes % (A) 4 %; Neutrophils # (A) 5.6 k/uL (1.3-7.7); Neutrophils % (A) 92 %; Platelet Count 370 k/uL (150-450); RBC 2.55 m/uL (4.30-5.90); RDW 16.4 % (11.5-15.5); WBC 6.1 k/uL (3.8-10.6)
[2019-05-05 10:34] LABS: Calcium 9.5 mg/dL (8.4-10.2); Potassium 4.5 mmol/L (3.5-5.1)
[2019-05-05 11:09] VITALS: BMI 21.4
[2019-05-05 11:58] LABS: Glucose,Whole Blood 119 mg/dL (75-99)
--- NOTE | 2019-05-05 13:29 | P.PN ---
Subjective Progress Note Date: 05/05/19 Principal diagnosis: Diagnosis: #1 acute exacerbation of COPD, hypercarbia, emphysematous changes, wheezing on admission, steroids started in the ER, consultation with Dr. Hou ordered yesterday on admission. #2 ischemic cardiomyopathy with the impairment of left ventricular function and acute congestive heart failure exacerbation on the top of chronic. The ejection fraction 30%. #3 chronic kidney disease stage III, which sometimes changes to stage IV with the aggressive diuresis. #4 mild elevation of troponin on admission resolved today with the troponin 10.033. #5 anemia with the progressive drop of the hemoglobin, patient seen by Dr. Pollard in the previous admission, and we will be consulting him again on this admission with the consideration for treatment. With the hemoglobin dropped from 9.2-8.2. #6 consultation with nephrology with the underlying cardiorenal syndrome with elevated creatinine from 1.69 2.09 with the underlying bilateral rales with the left sided cardiac failure. And the need for diuresis. #7 hypothyroidism. #8 coronary artery disease atherosclerotic heart disease [facility]. #9 history of hypertension with hyper hypertensive heart disease currently on the hypotensive side associated with ischemic cardiomyopathy. #10 chronic respiratory failure, with acute on the top of chronic, patient on oxygen and was increased to 4 L on admission, consultation with the pulmonary Dr. Hou request. Progress note date of service 05/05/2019. Dictation by Dr. Sharmin Alfaro [facility]. Patient seen and evaluated today discussed with his as well as the patient. His vital sign indicating that temperature 98.2 F oral pulse rate 76-89/m with a history of atrial fibrillation paroxysmal. His respiratory rate 20 nonlabored Blood pressure 102/61 and patient able to cough up phlegm sputum with the oxygenation improved to 96 on 4 L and currently decreased to 3 L. Laboratory today indicating white count 6.1, hemoglobin 8.2, hematocrit 26.2, MCV 102.8, with the moderate hypochromasia and slight anisocytosis and moderate to macrocytosis. Chemistry: Indicating sodium 133 mild hyponatremia, suspect potassium 4.5, chloride 81, carbon dioxide 45 with the carbon dioxide retention, we did consult Dr. Hou Renal function BUN of 45 creatinine 2.09 estimated glomerular filtration rate is 32 for non- blood sugar 1324 with a steroid and covered with insulin to scale, calcium 9.5, troponin 0.033. Physical exam: Patient is conscious alert oriented 3 he felt mild improvement, he wasn't seen by Dr. Maria yet or his associates. Patient was seen by Dr. Mcdowell the multimedia editor and he started him on IV Lasix. The head was normocephalic atraumatic pupils equal reactive, oropharynx was normal able to eat with the underlying dentures. Neck was supple no JVD no thyromegaly no lymphadenopathy trachea midline. Chest: He had almost 1 foot of his long and the lower part crackles and rales with the underlying the acute failure, he had wheezes yesterday in the ER on admission and patient treated with Solu-Medrol and no evidence of bronchospasm a nd he coughed the clock SPUTUM. Heart currently regular sinus rhythm with history of atrial fibrillation paroxysmal. And poor ejection fraction. Abdomen soft positive bowel sounds no organ enlargement. Extremities no edema and positive pulses Neurologically stable no lateralizing sign and no tremor or shakiness but presence of a generalized weakness. Assessment and plan #[address] Sim Alvarenga sat to him and assess his lung function and the use of the steroid or decreasing the doses. #[address] Anaya nephrology for evaluation with the possible progression for cardiorenal syndrome with the probable progression of the elevation of the creatinine. #[address] Pollard for evaluation and treatment of the anemia. We'll follow with the lab in a.m. Objective - Vital Signs Vital signs: Vital Signs Temp 98.2 F 05/05/19 11:29 Pulse 76 05/05/19 11:50 Resp 20 05/05/19 11:29 BP 102/61 05/05/19 11:29 Pulse Ox 96 05/05/19 11:29 Intake & Output 05/04/19 05/05/19 05/05/19 18:59 06:59 18:59 Intake Total 222 0 Output Total 425 300 Balance 222 -425 -300 Weight 63.503 kg 62.1 kg 62.1 kg Intake: Oral 222 0 Output: Urine 425 300 Other: Voiding Method Urinal Urinal # Voids 1 - Labs CBC & Chem 7: 05/05/19 08:57 05/05/19 08:57 Labs: Abnormal Lab Results - Last 24 Hours (Table) 05/04/19 05/05/19 05/05/19 Range/Units 22:07 06:18 08:57 RBC 2.55 L (4.30-5.90) m/uL Hgb 8.2 L (13.0-17.5) gm/dL Hct 26.2 L (39.0-53.0) % MCV 102.8 H (80.0-100.0) fL RDW 16.4 H (11.5-15.5) % Lymphocytes # 0.2 L (1.0-4.8) k/uL Sodium (137-145) mmol/L Chloride (98-107) mmol/L Carbon Dioxide (22-30) mmol/L BUN (9-20) mg/dL Creatinine (0.66-1.25) mg/dL Glucose (74-99) mg/dL POC Glucose (mg/dL) 155 H 131 H (75-99) mg/dL 05/05/19 05/05/19 Range/Units 08:57 11:56 RBC (4.30-5.90) m/uL Hgb (13.0-17.5) gm/dL Hct (39.0-53.0) % MCV (80.0-100.0) fL RDW (11.5-15.5) % Lymphocytes # (1.0-4.8) k/uL Sodium 133 L (137-145) mmol/L Chloride 81 L (98-107) mmol/L Carbon Dioxide 45 H* (22-30) mmol/L BUN 45 H (9-20) mg/dL Creatinine 2.09 H (0.66-1.25) mg/dL Glucose 134 H (74-99) mg/dL POC Glucose (mg/dL) 119 H (75-99) mg/dL
[2019-05-05 16:44] LABS: Glucose,Whole Blood 146 mg/dL (75-99)
[2019-05-05] MEDS: DOCUSATE 100 MG CAP PO SCH (20:53)
[2019-05-05] MEDS: FOLIC ACID 1 MG TAB PO SCH (20:53)
[2019-05-05] MEDS: CHOLECALCIFEROL 1,000 UNIT TAB PO SCH (20:53)
[2019-05-05] MEDS: ALLOPURINOL 100 MG TAB PO SCH (20:54)
[2019-05-05] MEDS: ATORVASTATIN 40 MG TAB PO SCH (20:54)
[2019-05-05] MEDS: LACTOBACILLUS ACIDOPH & BULGAR 1 EACH PACKET PO SCH (20:55)
[2019-05-05] MEDS: MULTIVITAMINS, THERA 1 EACH TAB PO SCH (20:55)
[2019-05-05 21:12] LABS: Glucose,Whole Blood 162 mg/dL (75-99)
[2019-05-05] MEDS: ZOLPIDEM 5 MG TAB PO PRN (21:50)
--- NOTE | 2019-05-05 22:28 | CONS ---
CONSULTATION PULMONARY/CRITICAL CARE CONSULTATION: DATE OF SERVICE: 05/05/2019 This is a 68-year-old male who presented to the emergency department complaining of difficulty breathing. He was apparently brought there by EMS. He does have a history of underlying COPD and congestive heart failure. In addition, he was recently in the hospital. He was discharged home on some antibiotics for pseudomonas. The patient apparently did not have any fever or chills. He did have some cough, but the cough was nonproductive. He denied any chest pain or palpitations. Denied any abdominal pain. There was no nausea, vomiting or diarrhea. There were no neurologic complaints or genitourinary complaints. His primary issue was difficulty breathing. The patient was evaluated in the emergency room and admitted with a diagnosis of COPD exacerbation, possible pneumonia, and pulmonary edema. HOME MEDICATIONS: Home medications include: 1. Multiple vitamins. 2. Aspirin. 3. Symbicort. 4. Ferrous sulfate. 5. DuoNeb. 6. Protonix. 7. Colace. 8. Folic acid. 9. Metoprolol. 10.Albuterol inhaler. 11.Zyloprim. 12.Vitamin B12. 13.Lactobacillus acidophilus. 14.Vitamin D3. 15.Levothyroxine. 16.Lasix. 17.Aldactone. 18.Ciprofloxacin, among other medications. ALLERGIES: HALDOL. MEDICAL HISTORY: His medical history is positive for: 1. CHF. 2. COPD. 3. Hypertension. 4. Myocardial infarction. 5. Hypothyroidism. 6. CAD. 7. Ischemic cardiomyopathy with an ejection fraction of 30%. 8. Sick sinus syndrome. 9. Cataracts. 10.Chronic anemia. 11.Chronic kidney disease. 12.Status post AICD placement. 13.Paroxysmal atrial fibrillation. 14.C difficile infection. SURGICAL HISTORY: Surgical history includes, among other things: 1. PCI with stent placement. 2. Pacemaker insertion. 3. Left rotator cuff surgery. 4. Colonoscopy. 5. Polypectomy. 6. Heart stent x1. 7. Sacral wound debridement. 8. Other minor procedures. SOCIAL HISTORY: Positive for previous heavy tobacco use. He does not smoke currently. Denies any alcohol or illicit drug use. FAMILY HISTORY: Positive for father with CAD, myocardial infarction, bypass grafting and bladder cancer. Mother's history included breast cancer. She at a young age. REVIEW OF SYSTEMS: CONSTITUTIONAL: Weakness. NEUROLOGIC: Negative. HEENT: Negative. CARDIOVASCULAR: Shortness of breath. PULMONARY: Shortness of breath. GI: Negative. : Negative. RHEUMATOLOGIC: Negative. IMMUNOLOGIC: Negative. ENDOCRINOLOGIC: Negative. DERMATOLOGIC: Negative. PHYSICAL EXAMINATION: VITAL SIGNS: Vital signs are reviewed. Temperature 98.2, heart rate 80, respiratory rate 20, blood pressure 102/61, mean 74. Saturations are 96% on 4 L. GENERAL: He was sleeping and resting comfortably. No acute distress. No audible wheezing. No use of accessory muscles. HEENT: HEENT examination is grossly unremarkable. NECK: Supple. Full range of motion. No adenopathy. CARDIOVASCULAR: Cardiovascular examination reveals distant heart sounds. Heart rate in mid 70s. S1, S2 normal. LUNGS: Coarse expiratory rhonchi and wheezes. There are bibasilar crackles. Breath sounds are diminished throughout. ABDOMEN: Soft. Bowel sounds are heard. EXTREMITIES: Mild edema. SKIN: Without rash. NEUROLOGIC: Neurologic examination is brief but nonfocal. LABS/IMAGING: Reviewed. White count 6.1, hemoglobin 8.2, hematocrit 26.2, platelet count 370,000. Sodium 133, potassium 4.5, chloride 81, CO2 45. Anion gap is 7. BUN and creatinine were 45 and 2.09. N-terminal proBNP is 14,500. Troponins were 0.033 and 0.033. A chest x-ray shows cardiomegaly with some chronic emphysematous changes and some increasing interstitial edema. There are bilateral effusions and possible right lower lobe pneumonia versus asymmetric pulmonary edema. AICD device noted. Microbiology is currently negative. Previous microbiology from mid April shows evidence of pseudomonas. Medications are reviewed. ASSESSMENT: 1. Shortness of breath, likely multifactorial, in part related to underlying chronic obstructive pulmonary disease exacerbation, possible bronchopneumonia in right lower lobe, as well as congestive heart failure. 2. History of severe ischemic cardiomyopathy with an ejection fraction of about 30%. 3. History of chronic obstructive pulmonary disease. 4. History of congestive heart failure. 5. Benign essential hypertension. 6. History of myocardial infarction. 7. Chronic kidney disease. 8. Hypothyroidism. 9. Sick sinus syndrome, status post AICD placement. 10.Coronary artery disease. 11.Chronic anemia. 12.Paroxysmal atrial fibrillation. 13.History of anemia. 14.Previous history of Clostridium difficile colitis. 15.Recent diagnosis of Pseudomonas aeruginosa pulmonary infection/Pseudomonas aeruginosa pneumonia/bronchitis. PLAN: The medications are reviewed. Please see my recommendations. His overall prognosis is very poor, given his plethora of medical problems, not least of which is severe ischemic cardiomyopathy and severe COPD. The patient was recently in the hospital in mid April. At that time he had a sputum culture showing evidence of pseudomonas. He was discharged home on Cipro. Additional recommendations and suggestions are forthcoming. MMODL / IJN: [id number] /
[2019-05-06] MEDS: IPRATROPIUM-ALBUTEROL 3 ML NEB INHALATION SCH ×6 (03:54→23:58)
[2019-05-06] MEDS: FUROSEMIDE 10 MG/ML 4 ML VIAL IV SCH (05:58)
[2019-05-06] MEDS: LEVOTHYROXINE 100 MCG TAB PO SCH (05:59)
[2019-05-06] MEDS: LEVOTHYROXINE 75 MCG TAB PO SCH (05:59)
[2019-05-06 06:31] LABS: Glucose,Whole Blood 138 mg/dL (75-99)
[2019-05-06] MEDS: INSULIN ASPART (NovoLOG) 100 UNIT/ML VIAL SQ SCH ×4 (06:39→21:18)
[2019-05-06] MEDS: PANTOPRAZOLE 40 MG TABLET PO SCH (06:55)
[2019-05-06 06:56] LABS: Anisocytosis Slight; Basophils % (A) 0 %; Eosinophils % (A) 0 %; HCT 25.5 % (39.0-53.0); HGB 8.1 gm/dL (13.0-17.5); Hypochromasia Moderate; Lymphocytes # (A) 0.2 k/uL (1.0-4.8); Lymphocytes % (A) 2 %; MCH 32.6 pg (25.0-35.0); MCHC 31.6 g/dL (31.0-37.0); MCV 103.2 fL (80.0-100.0); Macrocytosis Moderate; Mean Platelet Volume 7.9; Monocytes # (A) 0.3 k/uL (0-1.0); Monocytes % (A) 4 %; Neutrophils # (A) 7.8 k/uL (1.3-7.7); Neutrophils % (A) 93 %; Platelet Count 382 k/uL (150-450); RBC 2.47 m/uL (4.30-5.90); RDW 16.6 % (11.5-15.5); WBC 8.4 k/uL (3.8-10.6)
[2019-05-06 07:07] LABS: Calcium 9.6 mg/dL (8.4-10.2); Potassium 4.9 mmol/L (3.5-5.1)
[2019-05-06] MEDS: SYMBICORT 160-4.5 MCG INHALER INHALATION SCH ×2 (07:59→20:08)
--- NOTE | 2019-05-06 09:06 | P.PN ---
Subjective Progress Note Date: 05/06/19 Principal diagnosis: Diagnosis: #1 acute exacerbation of COPD, hypercarbia, emphysematous changes, wheezing on admission, steroids started in the ER, consultation with Dr. Hou ordered yesterday on admission. #2 ischemic cardiomyopathy with the impairment of left ventricular function and acute congestive heart failure exacerbation on the top of chronic. The ejection fraction 30%. #3 chronic kidney disease stage III, which sometimes changes to stage IV with the aggressive diuresis. #4 mild elevation of troponin on admission resolved today with the troponin 10.033. #5 anemia with the progressive drop of the hemoglobin, patient seen by Dr. Pollard in the previous admission, and we will be consulting him again on this admission with the consideration for treatment. With the hemoglobin dropped from 9.2-8.2. #6 consultation with nephrology with the underlying cardiorenal syndrome with elevated creatinine from 1.69 2.09 with the underlying bilateral rales with the left sided cardiac failure. And the need for diuresis. #7 hypothyroidism. #8 coronary artery disease atherosclerotic heart disease history of [facility] [place]. #9 history of hypertension with hyper hypertensive heart disease currently on the hypotensive side associated with ischemic cardiomyopathy. #10 chronic respiratory failure, with acute on the top of chronic, patient on oxygen and was increased to 4 L on admission, consultation with the pulmonary Dr. Hou request. Progress note date of service 05/05/2019. Dictation by Dr. Sharmin Alfaro [facility]. Patient seen and evaluated today discussed with his as well as the patient. His vital sign indicating that temperature 98.2 F oral pulse rate 76-89/m with a history of atrial fibrillation paroxysmal. His respiratory rate 20 nonlabored Blood pressure 102/61 and patient able to cough up phlegm sputum with the oxygenation improved to 96 on 4 L and currently decreased to 3 L. Laboratory today indicating white count 6.1, hemoglobin 8.2, hematocrit 26.2, MCV 102.8, with the moderate hypochromasia and slight anisocytosis and moderate to macrocytosis. Chemistry: Indicating sodium 133 mild hyponatremia, suspect potassium 4.5, chloride 81, carbon dioxide 45 with the carbon dioxide retention, we did consult Dr. Hou Renal function BUN of 45 creatinine 2.09 estimated glomerular filtration rate is 32 for non- blood sugar 1324 with a steroid and covered with insulin to scale, calcium 9.5, troponin 0.033. Physical exam: Patient is conscious alert oriented 3 he felt mild improvement, he wasn't seen by Dr. Maria yet or his associates. Patient was seen by Dr. Mcdowell the bi lead and he started him on IV Lasix. The head was normocephalic atraumatic pupils equal reactive, oropharynx was normal able to eat with the underlying dentures. Neck was supple no JVD no thyromegaly no lymphadenopathy trachea midline. Chest: He had almost 1 foot of his long and the lower part crackles and rales with the underlying the acute failure, he had wheezes yesterday in the ER on admission and patient treated with Solu-Medrol and no evidence of bronchospasm a nd he coughed the clock SPUTUM. Heart currently regular sinus rhythm with history of atrial fibrillation paroxysmal. And poor ejection fraction. Abdomen soft positive bowel sounds no organ enlargement. Extremities no edema and positive pulses Neurologically stable no lateralizing sign and no tremor or shakiness but presence of a generalized weakness. Assessment and plan #[address] Sim Alvarenga sat to him and assess his lung function and the use of the steroid or decreasing the doses. #[address] Anaya nephrology for evaluation with the possible progression for cardiorenal syndrome with the probable progression of the elevation of the creatinine. #[address] Pollard for evaluation and treatment of the anemia. We'll follow with the lab in a.m. Objective - Vital Signs Vital signs: Vital Signs Temp 97.9 F 05/06/19 07:53 Pulse 94 05/06/19 08:13 Resp 18 05/06/19 07:53 BP 113/60 05/06/19 07:53 Pulse Ox 93 L 05/06/19 07:59 Intake & Output 05/05/19 05/06/19 05/06/19 18:59 06:59 18:59 Intake Total 720 Output Total 300 Balance 420 Weight 62.1 kg 63.1 kg Intake: Oral 720 Output: Urine 300 Other: Voiding Method Urinal Urinal # Voids 1 2 - Labs CBC & Chem 7: 05/06/19 06:17 05/06/19 06:17 Labs: Abnormal Lab Results - Last 24 Hours (Table) 05/05/19 05/05/19 05/05/19 Range/Units 08:57 08:57 11:56 RBC 2.55 L (4.30-5.90) m/uL Hgb 8.2 L (13.0-17.5) gm/dL Hct 26.2 L (39.0-53.0) % MCV 102.8 H (80.0-100.0) fL RDW 16.4 H (11.5-15.5) % Neutrophils # (1.3-7.7) k/uL Lymphocytes # 0.2 L (1.0-4.8) k/uL Sodium 133 L (137-145) mmol/L Chloride 81 L (98-107) mmol/L Carbon Dioxide 45 H* (22-30) mmol/L BUN 45 H (9-20) mg/dL Creatinine 2.09 H (0.66-1.25) mg/dL Glucose 134 H (74-99) mg/dL POC Glucose (mg/dL) 119 H (75-99) mg/dL 05/05/19 05/05/19 05/06/19 Range/Units 16:42 21:10 06:17 RBC (4.30-5.90) m/uL Hgb (13.0-17.5) gm/dL Hct (39.0-53.0) % MCV (80.0-100.0) fL RDW (11.5-15.5) % Neutrophils # (1.3-7.7) k/uL Lymphocytes # (1.0-4.8) k/uL Sodium 133 L (137-145) mmol/L Chloride 81 L (98-107) mmol/L Carbon Dioxide 42 H* (22-30) mmol/L BUN 67 H (9-20) mg/dL Creatinine 2.55 H (0.66-1.25) mg/dL Glucose 120 H (74-99) mg/dL POC Glucose (mg/dL) 146 H 162 H (75-99) mg/dL 05/06/19 05/06/19 Range/Units 06:17 06:30 RBC 2.47 L (4.30-5.90) m/uL Hgb 8.1 L (13.0-17.5) gm/dL Hct 25.5 L (39.0-53.0) % MCV 103.2 H (80.0-100.0) fL RDW 16.6 H (11.5-15.5) % Neutrophils # 7.8 H (1.3-7.7) k/uL Lymphocytes # 0.2 L (1.0-4.8) k/uL Sodium (137-145) mmol/L Chloride (98-107) mmol/L Carbon Dioxide (22-30) mmol/L BUN (9-20) mg/dL Creatinine (0.66-1.25) mg/dL Glucose (74-99) mg/dL POC Glucose (mg/dL) 138 H (75-99) mg/dL Assessment and Plan Assessment: This is dictation on the progress note date of service 05/06/[address] Sharmin Alfaro [facility]. Patient seen and evaluated today and discussed with the patient's. Patient seen yesterday by the pulmonary group , [place] of Dr. Hou, and no further changes on medication. No added changes on the steroid. And the nephrology consultation is pending as well. Today his vital sign is stable with temperature 97.9 F oral pulse rate 92/m and regular and respiratory rate 18. Blood pressure 114/60 and he is on 3 L nasal cannula and pulse ox currently 93%. Laboratory today indicating white count 8.4 with a hemoglobin 8.1 and hematocrit 25.5 and the MCV 103.[address] Izquierdo will be seeing him today for his anemia as we did consult with him yesterday. His today his creatinine has been also increased with the use of Lasix and we will be waiting for the nephrology advice as well his sodium 133 with mild hyponatremia his potassium is 4.9, chloride 81, carbon dioxide 42, and no comment from pulmonary. His and then gap is 10 his BUN is 67 and the creatinine is 2.55 , Which is progressively elevated as well his stage of chronic kidney disease stage IV, chest estimated glomerular filtration rate for non- is 25. His blood sugar 120 and this associated with the steroid patient covered with insulin to scale. His calcium is 9.6. Patient is conscious alert oriented and head was normocephalic atraumatic able to eat and swallow he felt generally clinically improved but his shortness of breath still present. HEENT no change. Neck supple no JVD no thyromegaly no lymphadenopathy. The chest still lower half is crepitus and congestive heart failure is not resol royal yet. Abdomen is soft positive bowel sound no nausea no vomiting no diarrhea. Extremities no edema. Positive pulses. Neurologically stable. And Assessment and plan: We are continuing the current treatment. Waiting for pulmonary for any changes. Waiting for pulmonary for new changes. Underlying systolic congestive heart failure with secondary to ischemic cardiomyopathy with acute exacerbation COPD has been improved and the bronchospasm has been improved. We'll plan we'll decrease his steroid except of the pulmonary wants to continue the same. Time with Patient: Greater than 30
[2019-05-06] MEDS: methylPREDNISolone SOD SUCCI 40 MG/ML 1 ML VIAL IV SCH ×3 (09:32→23:23)
[2019-05-06] MEDS: CIPROFLOXACIN HCL 500 MG TAB PO SCH (09:42)
[2019-05-06] MEDS: AMIODARONE 200 MG TAB PO SCH (09:42)
[2019-05-06] MEDS: ASPIRIN 81 MG PO SCH (09:42)
[2019-05-06] MEDS: CLOPIDOGREL 75 MG TAB PO SCH (09:43)
[2019-05-06] MEDS: CYANOCOBALAMIN 500 MCG TAB PO SCH (09:43)
[2019-05-06] MEDS: METOPROLOL TARTRATE 25 MG TAB PO SCH ×2 (09:44→21:17)
[2019-05-06] MEDS: FERROUS SULFATE 325 MG TAB PO SCH ×2 (09:44→21:18)
[2019-05-06] MEDS: SPIRONOLACTONE 25 MG TAB PO SCH (09:45)
--- NOTE | 2019-05-06 11:10 | P.PN ---
Subjective Progress Note Date: 05/06/19 Principal diagnosis: Acute exacerbation of chronic obstructive pulmonary disease with suspected bronchopneumonia in the right lower lobe as well as acute exacerbation of systolic congestive heart failure. The patient is seen today 05/06/2019 in follow-up on the selective care unit. He is currently sitting up at the bedside. Awake and alert in no acute distress. Breathing a bit easier today as compared to yesterday. Maintaining O2 saturations in the low 90s on 3 L/m per nasal cannula. He is afebrile. Hemodynamically stable. White count 8.4. Hemoglobin 8.1. Creatinine 2.55. Bicarb 42. He remains on DuoNeb inhalations, Symbicort, IV Solu-Medrol. He's been transitioned to oral diuretics. Antibiotics in the form of ciprofloxacin. Objective - Vital Signs Vital signs: Vital Signs Temp 97.9 F 05/06/19 07:53 Pulse 94 05/06/19 08:13 Resp 18 05/06/19 08:00 BP 113/60 05/06/19 07:53 Pulse Ox 93 L 05/06/19 07:59 Intake & Output 05/05/19 05/06/19 05/06/19 18:59 06:59 18:59 Intake Total 720 Output Total 300 100 Balance 420 -100 Weight 62.1 kg 63.1 kg Intake: Oral 720 Output: Urine 300 Urine/Stool Mix 100 Other: Voiding Method Urinal Urinal Urinal # Voids 1 2 # Bowel Movements 1 - Exam GENERAL EXAM: Frail, cachectic 68-year-old gentleman. Alert, comfortable in no apparent distress. On 3 L nasal cannula. HEAD: Normocephalic. EYES: Normal reaction of pupils, equal size. NOSE: Clear with pink turbinates. THROAT: No erythema or exudates. NECK: No masses, no JVD. CHEST: No chest wall deformity. LUNGS: Equal air entry with crackles in the bilateral posterior bases, di minished. CVS: S1 and S2 normal with no audible murmur, regular rhythm. ABDOMEN: No hepatosplenomegaly, normal bowel sounds, no guarding or rigidity. SPINE: No scoliosis or deformity SKIN: No rashes CENTRAL NERVOUS SYSTEM: No focal deficits, tone is normal in all 4 extremities. EXTREMITIES: There is no peripheral edema. No clubbing, no cyanosis. Peripheral pulses are intact. - Labs CBC & Chem 7: 05/06/19 06:17 05/06/19 06:17 Labs: Abnormal Lab Results - Last 24 Hours (Table) 05/05/19 05/05/19 05/05/19 Range/Units 11:56 16:42 21:10 RBC (4.30-5.90) m/uL Hgb (13.0-17.5) gm/dL Hct (39.0-53.0) % MCV (80.0-100.0) fL RDW (11.5-15.5) % Neutrophils # (1.3-7.7) k/uL Lymphocytes # (1.0-4.8) k/uL Sodium (137-145) mmol/L Chloride (98-107) mmol/L Carbon Dioxide (22-30) mmol/L BUN (9-20) mg/dL Creatinine (0.66-1.25) mg/dL Glucose (74-99) mg/dL POC Glucose (mg/dL) 119 H 146 H 162 H (75-99) mg/dL 05/06/19 05/06/19 05/06/19 Range/Units 06:17 06:17 06:30 RBC 2.47 L (4.30-5.90) m/uL Hgb 8.1 L (13.0-17.5) gm/dL Hct 25.5 L (39.0-53.0) % MCV 103.2 H (80.0-100.0) fL RDW 16.6 H (11.5-15.5) % Neutrophils # 7.8 H (1.3-7.7) k/uL Lymphocytes # 0.2 L (1.0-4.8) k/uL Sodium 133 L (137-145) mmol/L Chloride 81 L (98-107) mmol/L Carbon Dioxide 42 H* (22-30) mmol/L BUN 67 H (9-20) mg/dL Creatinine 2.55 H (0.66-1.25) mg/dL Glucose 120 H (74-99) mg/dL POC Glucose (mg/dL) 138 H (75-99) mg/dL Assessment and Plan Assessment: Impression: #1 acute exacerbation of the chronic systolic heart failure. The patient is an ejection fraction of less than 30% along with secondary pulmonary hypertension. The patient is presenting with acute heart failure/pulmonary edema and his responding to diuretics. #2 severe COPD with FEV1 of 22% of predicted #3 chronic hypoxic respiratory failure secondary to above #4 history of sick sinus syndrome #5 history of biventricular AICD placement regarding his severe cardiomyopathy #6 chronic stage III kidney disease #7 coronary artery disease with previous coronary intervention and stenting #8 paroxysmal atrial fibrillation #9 hypertension #10 hypothyroidism #11 osteoarthritis #12 chronic anemia #13 pseudomonas in the sputum, likely a colonizer Plan: The patient was seen and evaluated by Dr. Hou. The patient is improved today compared to yesterday. We'll continue with the current treatment plan. Increase his activity as tolerated. We'll continue to follow and make further recommendations based on his clinical status. His overall prognosis is quite guarded. I, the cosigning physician, performed a history & physical examination of the patient. Lungs sounds crackles in the bilateral posterior bases, diminished. Maintaining good O2 saturations in the 90s on 3 L/m per nasal cannula. I discussed the assessment and plan of care with my nurse practitioner, Jennyfer Enciso. I attest to the above note as dictated by her.
--- NOTE | 2019-05-06 11:20 | PN ---
PROGRESS NOTE Mr. Mota is a 68-year-old male, history of severe cardiomyopathy, history of COPD who presented with symptoms of progressive dyspnea. He is feeling better today. He is denying any symptoms of chest pain. His breathing has been stable. He continued to have cough, but he improved compared to yesterday. He denies any nausea. He was seen by Dr. Hou and continues to be at this time on aspirin once a day, amiodarone 200 mg daily, Lipitor 40 mg daily, Plavix 75 mg daily, Lasix 40 mg IV q.8 hours, metoprolol tartrate 25 mg twice a day, spironolactone 12.5 mg daily. PHYSICAL EXAMINATION: Blood pressure 113/60 with the heart rate in the 90s. LUNGS: With scattered rhonchi, no wheezes, improved compared to yesterday. HEART: S1, S2 with systolic murmur, no diastolic murmur. ABDOMEN: Soft, nontender. No organomegaly. EXTREMITIES: No edema. LAB DATA: Lab data revealed BUN and creatinine of 67 and 2.55, potassium 4.9, hemoglobin of 8.1. IMPRESSION: 1. Progressive dyspnea, probably exacerbation of chronic obstructive pulmonary disease. 2. Severe ischemic cardiomyopathy. 3. History of coronary artery disease. 4. History of ICD implant. 5. Paroxysmal atrial fibrillation. 6. Worsening renal function. RECOMMENDATION: I will switch him to oral diuretic at this time. We will continue to follow his heart rate and his blood pressure as well as renal function. If they stabilized, he may be a candidate to add Entresto, but at this time, I will hold on that because of his renal function. MMODL / IJN: [id number] /
[2019-05-06 12:01] LABS: Glucose,Whole Blood 121 mg/dL (75-99)
[2019-05-06] MEDS: FUROSEMIDE 40 MG TAB PO SCH (15:16)
--- NOTE | 2019-05-06 16:37 | P.CONS ---
History of Present Illness - Reason for Consult Consult date: 05/06/19 Anemia Requesting physician: Jovanni Finney - Chief Complaint SOB hypoxia - History of Present Illness Mr. Mota is a pleasant white male multiple medical problems who has been following with Dr. Chau as an outpatient for his chronic anemia. He was originally evaluated in September 2015 and who is referred to hematology for hemoglobin at 10.1 he was macrocytic with MCV of 107 he underwent a full workup which additional labs were negative other than the presence of 2 small monoclonal proteins are IgG kappa at 0.2 g/dL and IgG lambda at 0.1 g/dL he also underwent a bone marrow biopsy in February 2017 which did not show any significant hypocellular marrow or abnormality. 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 Pollard the office on 04/15/2019. Last Epogen was given on 04.16.19. He wears home oxygen and has multiple co-moridities incliding CKD Stage 3, CHF systolic failure, Parox A Fib. He presented to emergency with hypoxia. Review of Systems A 14 point review of systems was assessed and completed and are all negative except for HPI Past Medical History Past Medical History: Heart Failure, COPD, Hypertension, Myocardial Infarction (RI), Renal Disease, Thyroid Disorder, Hypertension, Myocardial Infarction (RI), Thyroid Disorder Additional Past Medical History / Comment(s): Coronary artery disease, history of severe ischemic cardiomyopathy with systolic heart failure and ejection fraction of 30-35%, sick sinus syndrome, history of coronary artery disease, hypothyroidism, cataracts, chronic anemia, chronic kidney disease, history of insertion of a biventricular dual-chamber AICD, paroxysmal atrial fibrillation, chronic anemia, hypertension Last Myocardial Infarction Date:: 06/24/15 History of Any Multi-Drug Resistant Organisms: C-DIFF, MRSA Year Discovered:: 2015 MDRO Source:: sacral wound Past Surgical History: Heart Catheterization With Stent, Orthopedic Surgery, Pacemaker Additional Past Surgical History / Comment(s): 1996 L shoulder rotator cuff batista rgery, colonoscopy with benign polypectomy.heart stent x1, sacral wound debridement with wound vac in 09/2015 Past Anesthesia/Blood Transfusion Reactions: No Reported Reaction Additional Past Anesthesia/Blood Transfusion Reaction / Comm: Pt has never received blood. Date of Last Stent Placement:: 06/2015 Type of Cardiac Device: Permanent Pacemaker Device Placement Date:: 11/25/2016 Past Psychological History: No Psychological Hx Reported Smoking Status: Former smoker Past Alcohol Use History: None Reported Past Drug Use History: None Reported - Past Family History Father Family Medical History: Cancer, Coronary Artery Disease (CAD), Myocardial Infarction (RI) Additional Family Medical History / Comment(s): Father at age 86yrs. He had a CABG. Bladder cancer. Mother Family Medical History: Cancer Additional Family Medical History / Comment(s): Mother in her 30's of breast cancer. Medications and Allergies Home Medications Medication Instructions Recorded Confirmed Type Multivitamins, Thera [Multivitamin 1 tab PO HS 06/24/15 05/04/19 History (formulary)] Aspirin 81 mg PO DAILY 09/04/15 05/04/19 History Atorvastatin [Lipitor] 40 mg PO HS tab 09/22/15 05/04/19 Rx Clopidogrel [Plavix] 75 mg PO DAILY tab 09/22/15 05/04/19 Rx Budesonide/Formoterol Fumarate 2 puff INHALATION RT-BID 09/29/15 05/04/19 History [Symbicort 160-4.5 Mcg Inhaler] Ferrous Sulfate [Iron (65 MG 325 mg PO BID 10/04/15 05/04/19 History Elemental)] Ipratropium-Albuterol Nebulize 3 ml INHALATION RT-QID PRN 10/29/16 05/04/19 History [Duoneb 0.5 mg-3 mg/3 ml Soln] Pantoprazole [Protonix] 40 mg PO DAILY 10/29/16 05/04/19 History Docusate [Colace] 100 mg PO HS 12/13/17 05/04/19 History Folic Acid 0.8 mg PO HS 12/13/17 05/04/19 History Metoprolol Tartrate [Lopressor] 25 mg PO BID 12/13/17 05/04/19 History Albuterol Inhaler [Ventolin Hfa 1 - 2 puff INHALATION RT-Q6H PRN 02/16/19 05/04/19 History Inhaler] Allopurinol [Zyloprim] 100 mg PO HS 02/16/19 05/04/19 History Cyanocobalamin (Vitamin B-12) 1,000 mcg PO DAILY 02/16/19 05/04/19 History [Vitamin B-12] L.acidoph,Paracasei, B.lactis 1 cap PO HS 02/16/19 05/04/19 History [Probiotic] Cholecalciferol [Vitamin D3 (25 1,000 unit PO HS 02/20/19 05/04/19 History Mcg = 1000 Iu)] Levothyroxine Sodium [Synthroid] 175 mcg PO DAILY 02/20/19 05/04/19 History Amiodarone [Cordarone] 200 mg PO DAILY #30 tab 02/22/19 05/04/19 Rx Ciprofloxacin HCl [Cipro] 500 mg PO BID 5 Days #10 tab 04/25/19 05/04/19 Rx Zolpidem [Ambien] 5 mg PO HS PRN #30 tab 04/25/19 05/04/19 Rx Furosemide [Lasix] 40 mg PO BID 05/04/19 05/04/19 History Spironolactone [Aldactone] 12.5 mg PO DAILY 05/04/19 05/04/19 History Allergies Allergy/AdvReac Type Severity Reaction Status Date / Time haloperidol [From Haldol] AdvReac Confusion Verified 05/04/19 10:35 Physical Exam Vitals: Vital Signs Temp Pulse Pulse Resp BP Pulse Ox 05/06/19 15:49 76 05/06/19 15:36 75 05/06/19 11:58 97.9 F 70 14 93/60 98 05/06/19 11:28 92 05/06/19 11:16 90 05/06/19 08:13 94 05/06/19 08:00 70 14 05/06/19 07:59 93 93 L 05/06/19 07:53 97.9 F 92 18 113/60 05/06/19 04:00 65 16 104/58 100 05/05/19 23:43 74 19 101/60 100 05/05/19 23:26 86 05/05/19 23:17 84 05/05/19 20:00 98.3 F 90 20 118/58 93 L 05/05/19 19:59 83 05/05/19 19:45 82 Intake and Output 05/06/19 05/06/19 05/06/19 06:59 14:59 22:59 Intake Total 622 Output Total 100 Balance 522 Intake: Oral 622 Output: Urine/Stool Mix 100 Other: Voiding Method Urinal Urinal # Voids 2 # Bowel Movements 1 Weight 63.1 kg General: Alert and Oriented x3, No Acute Distress Head: Normocytic, Atraumatic Neck: Supple Mouth: No Lesions, No Thrush Eyes: Non-sclerotic No Palpable cervical, supraclavicular, axillary adenopathy Heart: Regular Rate, Regular Rhythm Lungs: Clear to Ausculations, No Wheeze, No Rhonchi, Diminishe bilateral lower lobes, No increased respiratory effort noted Abdomen: Soft, Non-Distended, Non-Tended, BSx4 Extremities: No Edema, Equal Strength Neurological: No Focal Defects: No sensory or motor deficits noted Psych: Calm and cooperative Results CBC & Chem 7: 05/06/19 06:17 05/06/19 06:17 Labs: Abnormal Lab Results - Last 24 Hours (Table) 05/05/19 05/05/19 05/06/19 Range/Units 16:42 21:10 06:17 RBC (4.30-5.90) m/uL Hgb (13.0-17.5) gm/dL Hct (39.0-53.0) % MCV (80.0-100.0) fL RDW (11.5-15.5) % Neutrophils # (1.3-7.7) k/uL Lymphocytes # (1.0-4.8) k/uL Sodium 133 L (137-145) mmol/L Chloride 81 L (98-107) mmol/L Carbon Dioxide 42 H* (22-30) mmol/L BUN 67 H (9-20) mg/dL Creatinine 2.55 H (0.66-1.25) mg/dL Glucose 120 H (74-99) mg/dL POC Glucose (mg/dL) 146 H 162 H (75-99) mg/dL 05/06/19 05/06/19 05/06/19 Range/Units 06:17 06:30 11:59 RBC 2.47 L (4.30-5.90) m/uL Hgb 8.1 L (13.0-17.5) gm/dL Hct 25.5 L (39.0-53.0) % MCV 103.2 H (80.0-100.0) fL RDW 16.6 H (11.5-15.5) % Neutrophils # 7.8 H (1.3-7.7) k/uL Lymphocytes # 0.2 L (1.0-4.8) k/uL Sodium (137-145) mmol/L Chloride (98-107) mmol/L Carbon Dioxide (22-30) mmol/L BUN (9-20) mg/dL Creatinine (0.66-1.25) mg/dL Glucose (74-99) mg/dL POC Glucose (mg/dL) 138 H 121 H (75-99) mg/dL Chest x-ray: report reviewed Assessment and Plan Plan: Assessment and Recommendations: Exacerbation of CHF: - Cardiology and primary team Chronic Anemia secondary to chronic inflammation, Chronic Kidney disease and possible component low grade MDS - Receives 20K of Procrit in office every 3 weeks - Anemia has been worsening therefore will check iron saturation to confirm above 15%, and order 100mcg sub cut of aransp today. CKD stage 3 : - Nephrology anagment Acute on Chronic Hypoxic respiratory Failure: - [place] to be secondary to CKD and CHF - With known Afib would be resobale to assess for PE, VQ scan with renal function, if hypoxia does not improve: LEATHA Isabel Physician Attestation: I have performed the full physical examination and reviewed the full history of this patient, as well as pertinent findings. I have created the compled impression and recommendations. I agree with the above dictation by LEATHA Isabel. This dictation has been written as a scribe.
[2019-05-06] MEDS ORDERED: DARBEPOETIN ALFA 100MCG/0.5ML SYRINGE SQ SCH (17:00)
[2019-05-06 17:08] LABS: Glucose,Whole Blood 143 mg/dL (75-99)
[2019-05-06 20:28] LABS: Glucose,Whole Blood 152 mg/dL (75-99)
[2019-05-06] MEDS: MULTIVITAMINS, THERA 1 EACH TAB PO SCH (21:17)
[2019-05-06] MEDS: ZOLPIDEM 5 MG TAB PO PRN (21:17)
[2019-05-06] MEDS: DOCUSATE 100 MG CAP PO SCH (21:18)
[2019-05-06] MEDS: ALLOPURINOL 100 MG TAB PO SCH (21:18)
[2019-05-06] MEDS: CHOLECALCIFEROL 1,000 UNIT TAB PO SCH (21:18)
[2019-05-06] MEDS: FOLIC ACID 1 MG TAB PO SCH (21:18)
[2019-05-06] MEDS: LACTOBACILLUS ACIDOPH & BULGAR 1 EACH PACKET PO SCH (21:18)
[2019-05-06] MEDS: ATORVASTATIN 40 MG TAB PO SCH (21:18)
[2019-05-06 23:39] LABS: Iron Saturation 10.42 (15.00-50.00)
--- NOTE | 2019-05-06 23:56 | CONS ---
CONSULTATION REASON FOR CONSULT: Renal failure. HISTORY OF PRESENT ILLNESS: The patient is a 68-year-old male who has a history of COPD, cardiomyopathy, coronary artery disease, CHF, which is mainly systolic, ejection fraction about 30%. He was admitted to the hospital with complaints of increasing shortness of breath and lower extremity edema. Patient has been diuresed. His serum creatinine was 1.69 on initial admission. It has gone up to 2.5 today. Review of previous labs shows a creatinine of 1.4 to 1.3 mg/dL as of April of 2019. This morning patient states he is feeling better. He has been voiding. He denies any shortness of breath. Lower extremity edema has improved as well. No complaints of chest pain. PAST MEDICAL HISTORY CKD, Cardiomyopathy, CHF, systolic, Afib, COPD PAST SURGCIAL HISTORY Cardiac cath, colonoscopy, pacemaker , coronary stent placement SOCIAL HISTORY Former smoker, no h/o ETOH or drug abuse. ROS As per HPI, other sysytems negative. ON EXAMINATION. Pt is comfortable, awake and alert and oriented x3 VSS Lungs are clear CVS exam show normal heart sounds Abdomen is soft, non tender Lower extremities show no significant edema OIM CONSULTANT exam is grossly intact. No rashes noted. No focal deficits. LABS are reviewed ASSESSMENT. 1. CKD, stage III, secondary to nephrosclerosis. Baseline creatinine 1.4 to 1.7 mg/dL. 2. Acute kidney injury, cardiorenal and secondary to recent diuresis. Decrease diuretics. 3. Metabolic alkalosis secondary to diuresis. 4. Hyponatremia which is hypervolemic, stable, with sodium at 133. Continue to diurese patient but decrease the diuretics. 5. Anemia; rule out iron deficiency. 6. Cardiomyopathy; ejection fraction of about 30%. 7. Congestive heart failure, acute on top of chronic, mainly systolic. 8. Paroxysmal atrial fibrillation. 9. Chronic obstructive pulmonary disease with possible exacerbation this admission. PLAN: Decrease diuretics. Repeat labs as outpatient. If the metabolic alkalosis does not improve with decreasing the diuretics, we may need to add Diamox. We will repeat labs in a.m. Possible discharge by tomorrow. Thank you for this consultation. Will continue to follow the patient with you during his hospitalization. MMODL / IJN: [id number] / COLLEEN
[2019-05-07] MEDS: IPRATROPIUM-ALBUTEROL 3 ML NEB INHALATION SCH ×7 (03:09→23:05)
[2019-05-07] MEDS: CIPROFLOXACIN HCL 500 MG TAB PO SCH ×2 (05:02→21:42)
[2019-05-07 06:13] LABS: Glucose,Whole Blood 162 mg/dL (75-99)
[2019-05-07] MEDS: LEVOTHYROXINE 100 MCG TAB PO SCH (06:26)
[2019-05-07] MEDS: LEVOTHYROXINE 75 MCG TAB PO SCH (06:26)
[2019-05-07] MEDS: PANTOPRAZOLE 40 MG TABLET PO SCH (06:26)
[2019-05-07] MEDS: INSULIN ASPART (NovoLOG) 100 UNIT/ML VIAL SQ SCH ×4 (06:26→21:43)
[2019-05-07] MEDS: SYMBICORT 160-4.5 MCG INHALER INHALATION SCH ×2 (07:30→20:04)
[2019-05-07 08:52] LABS: Calcium 9.7 mg/dL (8.4-10.2); Potassium 5.2 mmol/L (3.5-5.1)
--- NOTE | 2019-05-07 11:41 | PN ---
PROGRESS NOTE Patient is seen for followup for acute kidney injury on top of chronic kidney disease. He was admitted to the hospital with shortness of breath and CHF exacerbation. He was maintained on IV Lasix for a short period of time and then switched over to p.o. yesterday. Serum creatinine was 2.5 up from 1.69 on initial admission and this morning it is up to 2.8. Patient states he is feeling much better. He denies any complaints of chest pains or shortness of breath. PHYSICAL EXAMINATION: This morning, blood pressure 123/70, heart rate 76 per minute. He is afebrile. Examination of the heart S1, S2. Examination of the lungs, bilateral breath sounds are heard. Abdomen is soft, nontender. Examination of the lower extremities shows trace edema. MOTORBOAT MECHANIC INBOARD/OUTBOARD exam is grossly intact. LABS: Show sodium 133, potassium 5.2, CO2 is 42, BUN 88, serum creatinine 2.83. ASSESSMENT: 1. Acute kidney injury, cardiorenal and secondary to recent diuresis. We will make sure there is no component of urine retention. I will decrease the Lasix to once a day as volume status has improved significantly. Patient is not on any nephrotoxic medications and his blood pressure is not significantly low. 2. Mild hyperkalemia associated with acute kidney injury. Patient is maintained on Aldactone which we can continue for now unless the potassium is worse in a.m. 3. He should be maintained on low-potassium diet. 4. Congestive heart failure, systolic, acute on top of chronic, currently improved. 5. Cardiomyopathy, ejection fraction of about 30%. 6. Anemia. Iron profile was ordered and iron saturation is only 10%. The patient will benefit from IV iron plan. 7. Metabolic alkalosis secondary to diuresis. Expect improvement with decreasing diuretics. I will give 1 dose of Diamox. PLAN: Diamox x1. Decrease Lasix. Hold Aldactone if potassium is worse tomorrow and IV iron x1. MMODL / IJN: [id number] /
[2019-05-07 11:47] LABS: Glucose,Whole Blood 120 mg/dL (75-99)
[2019-05-07] MEDS: CLOPIDOGREL 75 MG TAB PO SCH (12:29)
[2019-05-07] MEDS: FERROUS SULFATE 325 MG TAB PO SCH ×2 (12:29→21:42)
[2019-05-07] MEDS: CYANOCOBALAMIN 500 MCG TAB PO SCH (12:29)
[2019-05-07] MEDS: METOPROLOL TARTRATE 25 MG TAB PO SCH ×2 (12:29→21:42)
[2019-05-07] MEDS: ASPIRIN 81 MG PO SCH (12:30)
[2019-05-07] MEDS: SPIRONOLACTONE 25 MG TAB PO SCH (12:30)
[2019-05-07] MEDS: AMIODARONE 200 MG TAB PO SCH (12:30)
[2019-05-07] MEDS: methylPREDNISolone SOD SUCCI 40 MG/ML 1 ML VIAL IV SCH (12:31)
--- NOTE | 2019-05-07 13:45 | P.PN ---
Subjective Progress Note Date: 05/07/19 This is a pleasant 68-year-old male with history of severe cardiomyopathy, COPD, paroxysmal atrial fibrillation, history of ICD implantation, history of CAD. Presented with symptoms of progressive dyspnea. He was initially initiated on Lasix 40 mg IV push every 8 hours this was changed to oral Lasix yesterday. Overall the patient is feeling quite a bit better. He feels his breathing is almost to baseline. He continues to have a cough but this is improving. He is currently on amiodarone 200 mg by mouth daily, aspirin 81 mg by mouth daily, Plavix 75 mg by mouth daily, Lasix 40 mg by mouth daily and metoprolol titrate 25 mg by mouth twice a day. Laboratory values show worsening renal failure with a BUN of 88 and creatinine of 2.83. Nephrology is on consult. Objective - Vital Signs Vital signs: Vital Signs Temp 98.1 F 05/07/19 11:47 Pulse 86 05/07/19 11:56 Resp 16 05/07/19 11:47 BP 130/72 05/07/19 11:47 Pulse Ox 95 05/07/19 11:47 Intake & Output 05/06/19 05/07/19 05/07/19 18:59 06:59 18:59 Intake Total 982 1080 Output Total 100 200 350 Balance 882 -200 730 Weight 63.6 kg Intake: Oral 982 1080 Output: Urine 200 350 Urine/Stool Mix 100 Other: Voiding Method Urinal # Voids 0 1 # Bowel Movements 1 - Exam PHYSICAL EXAMINATION: HEENT: Head is atraumatic, normocephalic. Pupils equal, round. Neck is supple. There is no elevated jugular venous pressure. HEART EXAMINATION: Heart sounds regular, S1 and S2 with a systolic murmur. CHEST EXAMINATION: Lungs revealed scattered rhonchi with faint bibasilar crackles. No chest wall tenderness is noted on palpation or with deep breathing. ABDOMEN: Soft, nontender. Bowel sounds are heard. No organomegaly noted. EXTREMITIES: 2+ peripheral pulses with no evidence of peripheral edema and no calf tenderness noted. NEUROLOGIC patient is awake, alert and oriented x3. . - Labs CBC & Chem 7: 05/06/19 06:17 05/07/19 08:14 Labs: Abnormal Lab Results - Last 24 Hours (Table) 05/05/19 05/06/19 05/06/19 Range/Units 08:57 17:03 20:27 Sodium (137-145) mmol/L Potassium (3.5-5.1) mmol/L Chloride (98-107) mmol/L Carbon Dioxide (22-30) mmol/L BUN (9-20) mg/dL Creatinine (0.66-1.25) mg/dL Glucose (74-99) mg/dL POC Glucose (mg/dL) 143 H 152 H (75-99) mg/dL Iron 27 L (65-175) ug/dL Iron Saturation 10.42 L (15.00-50.00) 05/07/19 05/07/19 05/07/19 Range/Units 06:12 08:14 11:39 Sodium 133 L (137-145) mmol/L Potassium 5.2 H (3.5-5.1) mmol/L Chloride 80 L (98-107) mmol/L Carbon Dioxide 42 H* (22-30) mmol/L BUN 88 H (9-20) mg/dL Creatinine 2.83 H (0.66-1.25) mg/dL Glucose 106 H (74-99) mg/dL POC Glucose (mg/dL) 162 H 120 H (75-99) mg/dL Iron (65-175) ug/dL Iron Saturation (15.00-50.00) Microbiology - Last 24 Hours (Table) 05/06/19 15:37 Sputum Culture - Final Sputum Assessment and Plan Assessment: #1 progressive dyspnea, probably exacerbation of COPD #2 severe ischemic cardiomyopathy #3 history of CAD #4 history of ICD implantation #5 paroxysmal atrial fibrillation #6 worsening renal failure Plan: From assembler dielectric heater perspective, medications were reviewed and will continue the same. Continue follow patient's renal function and electrolytes. Further recommendations to follow. VICE PRESIDENT OF INSTRUCTION note has been reviewed, I agree with a documented findings and plan of care. Patient was seen and examined.
--- NOTE | 2019-05-07 14:20 | P.PN ---
Subjective Progress Note Date: 05/07/19 Objective - Vital Signs Vital signs: Vital Signs Temp 98.1 F 05/07/19 11:47 Pulse 86 05/07/19 11:56 Resp 16 05/07/19 11:47 BP 130/72 05/07/19 11:47 Pulse Ox 95 05/07/19 11:47 Intake & Output 05/06/19 05/07/19 05/07/19 18:59 06:59 18:59 Intake Total 982 1080 Output Total 100 200 350 Balance 882 -200 730 Weight 63.6 kg Intake: Oral 982 1080 Output: Urine 200 350 Urine/Stool Mix 100 Other: Voiding Method Urinal # Voids 0 1 # Bowel Movements 1 - Exam General: Alert and Oriented x3, No Acute Distress Head: Normocytic, Atraumatic Neck: Supple Mouth: No Lesions, No Thrush Eyes: Non-sclerotic No Palpable cervical, supraclavicular, axillary adenopathy Heart: Regular Rate, Regular Rhythm Lungs: Clear to Ausculations, No Wheeze, No Rhonchi, Diminishe bilateral lower lobes, No increased respiratory effort noted Abdomen: Soft, Non-Distended, Non-Tended, BSx4 Extremities: No Edema, Equal Strength Neurological: No Focal Defects: No sensory or motor deficits noted Psych: Calm and cooperative - Labs CBC & Chem 7: 05/06/19 06:17 05/07/19 08:14 Labs: Abnormal Lab Results - Last 24 Hours (Table) 05/05/19 05/06/19 05/06/19 Range/Units 08:57 17:03 20:27 Sodium (137-145) mmol/L Potassium (3.5-5.1) mmol/L Chloride (98-107) mmol/L Carbon Dioxide (22-30) mmol/L BUN (9-20) mg/dL Creatinine (0.66-1.25) mg/dL Glucose (74-99) mg/dL POC Glucose (mg/dL) 143 H 152 H (75-99) mg/dL Iron 27 L (65-175) ug/dL Iron Saturation 10.42 L (15.00-50.00) 05/07/19 05/07/19 05/07/19 Range/Units 06:12 08:14 11:39 Sodium 133 L (137-145) mmol/L Potassium 5.2 H (3.5-5.1) mmol/L Chloride 80 L (98-107) mmol/L Carbon Dioxide 42 H* (22-30) mmol/L BUN 88 H (9-20) mg/dL Creatinine 2.83 H (0.66-1.25) mg/dL Glucose 106 H (74-99) mg/dL POC Glucose (mg/dL) 162 H 120 H (75-99) mg/dL Iron (65-175) ug/dL Iron Saturation (15.00-50.00) Microbiology - Last 24 Hours (Table) 05/06/19 15:37 Sputum Culture - Final Sputum Assessment and Plan Plan: Assessment and Recommendations: Exacerbation of CHF: - Cardiology and primary team Chronic Anemia secondary to chronic inflammation, Chronic Kidney disease and possible component low grade MDS - Receives 20K of Procrit in office every 3 weeks - Anemia has been worsening therefore will check iron saturation to confirm above 15%, and order 100mcg sub cut of aransp today. CKD stage 3 : - Nephrology anagment Acute on Chronic Hypoxic respiratory Failure: - [place] to be secondary to CKD and CHF - With known Afib would be reasonable to assess for PE, VQ scan with renal function, if hypoxia does not improve: LEATHA Isabel
[2019-05-07 15:07] LABS: Anisocytosis Slight; Basophils % (A) 0 %; Eosinophils % (A) 1 %; HCT 28.8 % (39.0-53.0); HGB 8.7 gm/dL (13.0-17.5); Hypochromasia Marked; Lymphocytes # (A) 0.3 k/uL (1.0-4.8); Lymphocytes % (A) 4 %; MCV 106.6 fL (80.0-100.0); Macrocytosis Marked; Mean Platelet Volume 8.9; Monocytes # (A) 0.4 k/uL (0-1.0); Monocytes % (A) 6 %; Neutrophils # (A) 6.5 k/uL (1.3-7.7); Neutrophils % (A) 90 %; Platelet Count 394 k/uL (150-450); RBC 2.71 m/uL (4.30-5.90); RDW 16.6 % (11.5-15.5); WBC 7.2 k/uL (3.8-10.6)
--- NOTE | 2019-05-07 15:17 | PN ---
PROGRESS NOTE DATE OF SERVICE: 05/07/2019 This is a 69-year-old male with a history of a severe COPD. FEV1 is 22% of predicted. He was admitted to the hospital with diagnosis of acute exacerbation of chronic systolic heart failure. His ejection fraction is only 30%. He does have secondary pulmonary hypertension. In addition, he has chronic hypoxemic respiratory failure, sick sinus syndrome, status post biventricular AICD placement, severe cardiomyopathy, stage 3 chronic kidney disease, CAD with previous stenting, paroxysmal atrial fibrillation, hypertension, hypothyroidism, osteoarthritis, chronic anemia, and Pseudomonas colonization of the respiratory tract. Currently, the patient is doing much better. He is feeling much better. He is sitting at the bedside. On O2 at 2 L. He has been walking in the hallway. His pulmonary complaints have improved. PHYSICAL EXAMINATION: VITAL SIGNS: Current vital signs good temperature 98.1 heart rate, respiratory rate 16, blood pressure 130/72 mean 91. 3 L saturation 95%. Appears in no acute distress HEENT examination is grossly unremarkable. Mucous membranes are moist. NECK: Supple. Full range of motion. No adenopathy. CARDIOVASCULAR examination reveals regular rhythm rate. Heart sounds are distant. S1, S2 normal. Soft systolic murmur. LUNGS: Diminished breath sounds throughout. A few scattered crackles. No rhonchi or wheezes. ABDOMEN: Soft. Bowel sounds are heard. EXTREMITIES: Intact. No cyanosis, clubbing, or edema. SKIN: Without rash. NEUROLOGIC: Examination is brief but nonfocal. LABS: Today include a sodium 133, potassium 5.2, chloride 80, CO2 is 42, anion gap 11, BUN and creatinine were 88 and 2.83. The rest of the labs look okay. No recent chest x-ray to report. Microbiologic studies are negative. ASSESSMENT: 1. Acute exacerbation of chronic systolic heart failure in a patient with severe cardiomyopathy and ejection fraction of 30%. 2. History of secondary pulmonary hypertension, likely related to both systolic congestive heart failure and severe chronic obstructive pulmonary disease. 3. Severe chronic obstructive pulmonary disease, with FEV1 of 22% of predicted. 4. Chronic hypoxemic respiratory failure. 5. History of sick sinus syndrome, status post biventricular AICD placement. 6. Severe cardiomyopathy. 7. Stage III chronic kidney disease. 8. Coronary artery disease with previous coronary intervention/stenting. 9. Paroxysmal atrial fibrillation. 10.Hypertension. 11.Hypothyroidism. 12.Osteoarthritis. 13.Chronic anemia. 14.Pseudomonas colonization of the respiratory tract. PLAN: Overall, the patient is doing better. His respiratory status has improved. He is down to 3 L. He has been able to walk up and down the hallways. His medications are reviewed. They are appropriate. Will continue to follow. Prognosis is very guarded, though. No additional recommendations are made. MMODL / IJN: [id number] /
[2019-05-07 15:24] LABS: Large Platelets Present; Poikilocytosis (M) Present; Polychromasia Present
[2019-05-07 15:25] LABS: Toxic Granulation Present
[2019-05-07 16:57] LABS: Glucose,Whole Blood 164 mg/dL (75-99)
--- NOTE | 2019-05-07 17:37 | P.PN ---
Subjective Progress Note Date: 05/07/19 Progress note date of service 05/07/2019. Patient seen and evaluated discussed with his with the underlying. Poor prognosis with the underlying cardio renal syndrome. Patient seen by Dr. Kyle and she decreased her Lasix to 40 mg once a day, His congestive heart failure systolic acute on the top of chronic with the underlying ischemic cardiomyopathy and ejection fraction 30%, history of atrial fibrillation currently sinus with the use of amiodarone. Underlying COPD with the acute exacerbation and wheezes with a history of ex- smoker and underlying emphysema. Vital sign indicating temperature 90.7 point on F pulse rate 83 per minute regular respiratory rate 16, blood pressure 127/71 and pulse ox 94% on 3 L. Laboratory WBC 7.2, hemoglobin 8.7 hematocrit 28.8 with the MCV 106.6 and patient seen by the hematology oncology and he received Procrit secondary to his chronic anemia. Sodium mild hypo-natremia with sodium 133. His potassium is 5.2 which is abnormally high secondary to Aldactone and we'll be discontinuing the Aldactone. Carbon dioxide 42 abnormally high however the pulmonary consult was not concerned at that level. His BUN is increased to 88, creatinine 2.83, with the estimated GFR for non- 22 for stage IV, Dr. Kyle did see the patient and decrease the Lasix to 40 mg by mouth once a day and will repeat the lab tomorrow to see if any improvement in the renal function. His blood sugar was monitored was covered with insulin to scale as well, was due to effect of the steroid which was given IV for the bronchospasm on admission and subsequently discontinued today and he is on supportive dose of morbid controlled 4 mg once a day. His blood sugar this morning 106, calcium is 9.7. On the clinical exam: Patient's conscious alert oriented 3 his at bedside HEENT the head was normocephalic and atraumatic he able to eat and swallow without dysphagia, neck was supple no JVD no thyromegaly no lymphadenopathy trachea midline. Chest improvement on the rales bilaterally however still present in the lower basis with deep inspiration. Heart history of atrial fib however currently controlled ventricular response and on amiodarone and he is sinus and his ejection fraction 30% with ischemic heart disease and he has 1 stent. Abdomen soft positive bowel sounds and no organ enlargement no nausea no vomiting no diarrhea. Extremities no edema. Pulses bilateral and symmetrical and he able to move in the room. Neurologically stable no lateralizing sign. Assessment: #1 admission was bronchospasm and COPD exacerbation and a previous admission with a history of the sputum showed pseudomonas which was sensitive to Cipro and patient was treated with Cipro almost 10 days. Possible colonization and the results of the Culture done on May 06 not available yet and would wait for tomorrow hopefully we have the results before discontinuation of the Cipro. #2 ischemic cardiomyopathy with the acute congestive heart failure systolic on the top of chronic with the improvement of the ejection fraction to 30%. #3 anemia of chronic illness and disease, and he is seen by hematology oncology and is getting the Procrit injection with the drop of his hemoglobin #4 hyperkalemia, hyponatremia, we'll discontinue Aldactone. #5 on admission he mild elevation of troponin result without pathological effect and seen by Dr. Real cardiology. #6 patient with macrocytosis with the possibility of myelodysplastic syndrome. #7 on the computer indicating that sputum culture was not performed and the Gram stain of the sputum is pending. #8 hypothyroidism #9 insomnia. Plan: #1 we'll check his electrolyte and renal function tomorrow with the stability will be discharging the patient home if there is no acute event happening. #2 we'll discontinue Cipro with the patient admitted for total of more than 10 days. And the culture wasn't done and the Gram stain was not available. #3 ambulate as tolerated. With nursing consultant Objective - Vital Signs Vital signs: Vital Signs Temp 97.1 F L 05/07/19 16:00 Pulse 84 05/07/19 17:03 Resp 16 05/07/19 16:00 BP 127/71 05/07/19 16:00 Pulse Ox 94 L 05/07/19 16:00 Intake & Output 05/06/19 05/07/19 05/07/19 18:59 06:59 18:59 Intake Total 982 1080 Output Total 100 200 350 Balance 882 -200 730 Weight 63.6 kg Intake: Oral 982 1080 Output: Urine 200 350 Urine/Stool Mix 100 Other: Voiding Method Urinal Urinal # Voids 0 1 # Bowel Movements 1 - Labs CBC & Chem 7: 05/07/19 06:17 05/07/19 08:14 Labs: Abnormal Lab Results - Last 24 Hours (Table) 05/05/19 05/06/19 05/07/19 Range/Units 08:57 20:27 06:12 RBC (4.30-5.90) m/uL Hgb (13.0-17.5) gm/dL Hct (39.0-53.0) % MCV (80.0-100.0) fL MCHC (31.0-37.0) g/dL RDW (11.5-15.5) % Lymphocytes # (1.0-4.8) k/uL Macrocytosis Sodium (137-145) mmol/L Potassium (3.5-5.1) mmol/L Chloride (98-107) mmol/L Carbon Dioxide (22-30) mmol/L BUN (9-20) mg/dL Creatinine (0.66-1.25) mg/dL Glucose (74-99) mg/dL POC Glucose (mg/dL) 152 H 162 H (75-99) mg/dL Iron 27 L (65-175) ug/dL Iron Saturation 10.42 L (15.00-50.00) 05/07/19 05/07/19 05/07/19 Range/Units 06:17 08:14 11:39 RBC 2.71 L (4.30-5.90) m/uL Hgb 8.7 L (13.0-17.5) gm/dL Hct 28.8 L (39.0-53.0) % MCV 106.6 H (80.0-100.0) fL MCHC 30.0 L (31.0-37.0) g/dL RDW 16.6 H (11.5-15.5) % Lymphocytes # 0.3 L (1.0-4.8) k/uL Macrocytosis Marked A Sodium 133 L (137-145) mmol/L Potassium 5.2 H (3.5-5.1) mmol/L Chloride 80 L (98-107) mmol/L Carbon Dioxide 42 H* (22-30) mmol/L BUN 88 H (9-20) mg/dL Creatinine 2.83 H (0.66-1.25) mg/dL Glucose 106 H (74-99) mg/dL POC Glucose (mg/dL) 120 H (75-99) mg/dL Iron (65-175) ug/dL Iron Saturation (15.00-50.00) 05/07/19 Range/Units 16:54 RBC (4.30-5.90) m/uL Hgb (13.0-17.5) gm/dL Hct (39.0-53.0) % MCV (80.0-100.0) fL MCHC (31.0-37.0) g/dL RDW (11.5-15.5) % Lymphocytes # (1.0-4.8) k/uL Macrocytosis Sodium (137-145) mmol/L Potassium (3.5-5.1) mmol/L Chloride (98-107) mmol/L Carbon Dioxide (22-30) mmol/L BUN (9-20) mg/dL Creatinine (0.66-1.25) mg/dL Glucose (74-99) mg/dL POC Glucose (mg/dL) 164 H (75-99) mg/dL Iron (65-175) ug/dL Iron Saturation (15.00-50.00) Microbiology - Last 24 Hours (Table) 05/06/19 15:37 Sputum Culture - Final Sputum
[2019-05-07 20:34] LABS: Glucose,Whole Blood 144 mg/dL (75-99)
[2019-05-07] MEDS: LACTOBACILLUS ACIDOPH & BULGAR 1 EACH PACKET PO SCH (21:42)
[2019-05-07] MEDS: ATORVASTATIN 40 MG TAB PO SCH (21:42)
[2019-05-07] MEDS: MULTIVITAMINS, THERA 1 EACH TAB PO SCH (21:42)
[2019-05-07] MEDS: ZOLPIDEM 5 MG TAB PO PRN (21:42)
[2019-05-07] MEDS: ALLOPURINOL 100 MG TAB PO SCH (21:42)
[2019-05-07] MEDS: CHOLECALCIFEROL 1,000 UNIT TAB PO SCH (21:42)
[2019-05-07] MEDS: FOLIC ACID 1 MG TAB PO SCH (21:43)
[2019-05-07] MEDS: DOCUSATE 100 MG CAP PO SCH (21:43)
[2019-05-08] MEDS: FUROSEMIDE 40 MG TAB PO SCH (01:37)
[2019-05-08] MEDS: IPRATROPIUM-ALBUTEROL 3 ML NEB INHALATION SCH ×3 (03:32→10:30)
[2019-05-08 06:20] LABS: Anisocytosis Slight; Basophils % (A) 0 %; Eosinophils % (A) 1 %; HCT 25.6 % (39.0-53.0); HGB 7.9 gm/dL (13.0-17.5); Hypochromasia Moderate; Lymphocytes # (A) 0.5 k/uL (1.0-4.8); Lymphocytes % (A) 7 %; MCH 31.9 pg (25.0-35.0); MCHC 30.9 g/dL (31.0-37.0); MCV 103.3 fL (80.0-100.0); Macrocytosis Moderate; Mean Platelet Volume 7.8; Monocytes # (A) 0.4 k/uL (0-1.0); Monocytes % (A) 5 %; Neutrophils # (A) 6.4 k/uL (1.3-7.7); Neutrophils % (A) 86 %; Platelet Count 365 k/uL (150-450); RBC 2.48 m/uL (4.30-5.90); RDW 16.3 % (11.5-15.5); WBC 7.4 k/uL (3.8-10.6)
[2019-05-08 06:23] LABS: Glucose,Whole Blood 114 mg/dL (75-99)
[2019-05-08 06:30] LABS: Calcium 9.3 mg/dL (8.4-10.2); Potassium 4.9 mmol/L (3.5-5.1)
[2019-05-08] MEDS: INSULIN ASPART (NovoLOG) 100 UNIT/ML VIAL SQ SCH (06:39)
[2019-05-08] MEDS: LEVOTHYROXINE 100 MCG TAB PO SCH (06:42)
[2019-05-08] MEDS: LEVOTHYROXINE 75 MCG TAB PO SCH (06:42)
[2019-05-08] MEDS: PANTOPRAZOLE 40 MG TABLET PO SCH (06:42)
[2019-05-08] MEDS: ASPIRIN 81 MG PO SCH (08:33)
[2019-05-08] MEDS: CYANOCOBALAMIN 500 MCG TAB PO SCH (08:34)
[2019-05-08] MEDS: FERROUS SULFATE 325 MG TAB PO SCH (08:34)
[2019-05-08] MEDS: CLOPIDOGREL 75 MG TAB PO SCH (08:34)
[2019-05-08] MEDS: AMIODARONE 200 MG TAB PO SCH (08:34)
[2019-05-08] MEDS: METOPROLOL TARTRATE 25 MG TAB PO SCH (08:34)
[2019-05-08 08:43] VITALS: BP 117/65; RESP 18; TEMP 98.2
[2019-05-08] MEDS ORDERED: FUROSEMIDE 40 MG TAB PO SCH (09:00)
[2019-05-08] MEDS: SYMBICORT 160-4.5 MCG INHALER INHALATION SCH ×2 (09:37→10:38)
[2019-05-08 10:42] VITALS: PULSE 66
[2019-05-08] MEDS ORDERED: acetaZOLAMIDE 250 MG TAB PO SCH ×2 (11:15→21:00)
--- NOTE | 2019-05-08 11:56 | P.DS ---
Providers Date of admission: 05/04/19 13:49 Expected date of discharge: 05/08/19 (No code) Attending physician: Jovanni Finney Consults: 05/04/19 13:49 Consult Physician Routine Consulting Provider: Hari Hou Consult Reason/Comments: COPD Do you want consulting provider notified?: Yes Consult Physician Routine Consulting Provider: [facility] Consult Reason/Comments: Pulmonary edema Do you want consulting provider notified?: Yes 05/05/19 13:07 Consult Physician Routine Consulting Provider: Aric Pollard Consult Reason/Comments: anemia, procrit Do you want consulting provider notified?: Yes 05/05/19 13:08 Consult Physician Routine Consulting Provider: Aric Pollard Consult Reason/Comments: Anemia, worsening of congestive heart failure, questionable need Procrit Do you want consulting provider notified?: Yes 05/05/19 13:29 Consult Physician Routine Consulting Provider: Arik Anaya Consult Reason/Comments: Chronic kidney disease with acute renal failure, hepatorenal syndrome Do you want consulting provider notified?: Yes Primary care physician: Jovanni Finney Dictation on the discharge summary date of service 05/08 2019. Final diagnosis: #1 admitted with bronchospasm and COPD with the underlying severe obstructive lung disease FEV1 22% of predicted. #2 acute on top of chronic hypoxemic respiratory failure on oxygen 24 hour 3 L. #3 acute exacerbation of chronic systolic heart failure with the underlying severe cardiomyopathy with the ejection fraction 30%. New #4 pacemaker biventricular AICD due to sick sinus syndrome. #5 severe cardiomyopathy ischemic type. #6 acute kidney injury on the top of chronic kidney disease currently stage IV. #7 coronary artery disease atherosclerotic heart disease with 1 stent. #8 paroxysmal atrial fibrillation currently sinus on medication amiodarone, and eliquis anticoagulant. #9 anemia KIDNEY disease and chronic illness received Procrit and followed with Dr. Pollard hematology oncology will give him Procrit every 3 weeks and constantly assessment. #10 underlying history of hypertension with hypertensive heart disease, currently normotensive. #11 hypothyroidism covered with medication Synthroid. #12 history of pseudomonas colonization however treated with Coumadin for culture and sensitivity with Cipro for more than 10 days. #13 macrocytic hypochromic anemia with the underlying possibilities of myelodysplastic syndrome. #14 hyperkalemia necessitate discontinuation of Aldactone. #15 on admission mild elevation of troponin resolved on the second day without symptoms of chest pain. #16 acute congestive heart failure on the top of chronic with the association of severe impairment of ejection fraction and pulmonary edema on admission has been markedly improved with the diuresis Consulting physician: #[address] ketan kendrick his primary log grader Dr. Lindo. #[address] Hou and primary pulmonary is Dr. Hou. #[address] Pollard #[address] Kyle. Presentation in the emergency room: 68 years old white male severe shortness of breath with the wheezes and rales and he was already on Cipro antibiotic and admitted with acute pulmonary edema acute exacerbation of chronic obstructive lung disease by Dr. Mota ER physician. Hospital course: Patient diuresed initially was oral diuretics Lasix, with the consultation with the cardiology, pulmonary, hematology oncology, nephrology. Clinically his rales and has gradually improving and the shortness of breath improved but not completely resolved, with the diuresis his acute cane knee injury was suspected and the Lasix this decreased to once a day by Dr. Kyle. Nephrology Dr. Kyle didn't add to him Diamox 250 mg once a day before discharge and 2 tablet for tomorrow and day after because of his carbon dioxide was elevated. Patient cleared for discharge by the above identity management consultant meanwhile he will be following with him as outpatient. His creatinine on discharge mild improvement with a decrease of Lasix 40 mg once a day which was adjusted by Dr. Kyle. His hemoglobin drop however patient just received the Procrit and expected to be increased again or improved as well as he followed by Dr. Gage the hematology oncology. I did discuss with the and the patient with the underlying prognosis is guarded to poor with the multiple organ involvement. And the patient requested no code. Exam on discharge: Temperature 98.2 F oral pulse rate is 78/m regular, respiratory rate 50 18/m, blood pressure 117/65 with a mean 82, his pulse ox 95% on room air. Head was normocephalic and atraumatic, pupil was equal reactive, hearing is normal, no nasal discharge, oropharynx no change able to eat and swallow, no fascial asymmetry. Neck was supple no JVD and no thyromegaly no lymphadenopathy trachea midline. Chest increased anteroposterior diameter with history of ex-smoker with COPD, he had basilar rales bilaterally however irradiation of the lung much improvement Heart history of eczema atrial fibrillation paroxysmal, currently sinus rhythm with the ejection fraction and the ejection fraction is 30%. Abdomen soft positive bowel sounds no organ enlargement. Extremities: No edema and positive pulses with good perfusion. Neurologically: Stable no lateralizing sign and no deficit. Patient stable general condition for discharge today and follow-up as outpatient. Medication added on discharge Diamox 250 mg 3 tablets total , was 1 tablet for the next 2 days. As well as Lasix decreased to 40 mg once a day by the order of Dr. Kyle the information services manager. Laboratory on discharge: WBC 7.4, RBC 2.48, hemoglobin 7.9, hematocrit 25.6, MCV 103.3 platelet count 365 with the underlying and niece who cytosis hypochromasia and macrocytosis. Electrolytes: Sodium 134 potassium 4.9 with the discontinuation of Aldactone chloride 84 carbon dioxide is 44 and patient received the Diamox anion gap 6 BUN of 86 and creatinine 2.37 with the estimated glomerular filtration rate for non- was indication of chronic kidney disease stage IV., Blood sugar 93 normalize after discontinuation of the steroids which was given through the emergency room for the bronchospasm. His calcium is 9.3 normal. Plan - Discharge Summary Discharge Rx Participant: Yes New Discharge Prescriptions: New Furosemide [Lasix] 40 mg PO DAILY tab acetaZOLAMIDE [Diamox] 250 mg PO DAILY #2 tab Continue Multivitamins, Thera [Multivitamin (formulary)] 1 tab PO HS Aspirin 81 mg PO DAILY Atorvastatin [Lipitor] 40 mg PO HS tab Clopidogrel [Plavix] 75 mg PO DAILY tab Budesonide/Formoterol Fumarate [Symbicort 160-4.5 Mcg Inhaler] 2 puff INHALATION RT-BID Ferrous Sulfate [Iron (65 MG Elemental)] 325 mg PO BID Pantoprazole [Protonix] 40 mg PO DAILY Ipratropium-Albuterol Nebulize [Duoneb 0.5 mg-3 mg/3 ml Soln] 3 ml INHALATION RT-QID PRN PRN Reason: Dyspnea Docusate [Colace] 100 mg PO HS Metoprolol Tartrate [Lopressor] 25 mg PO BID Folic Acid 0.8 mg PO HS Allopurinol [Zyloprim] 100 mg PO HS Albuterol Inhaler [Ventolin Hfa Inhaler] 1 - 2 puff INHALATION RT-Q6H PRN PRN Reason: Shortness Of Breath L.acidoph,Paracasei, B.lactis [Probiotic] 1 cap PO HS Cyanocobalamin (Vitamin B-12) [Vitamin B-12] 1,000 mcg PO DAILY Cholecalciferol [Vitamin D3 (25 Mcg = 1000 Iu)] 1,000 unit PO HS Levothyroxine Sodium [Synthroid] 175 mcg PO DAILY Amiodarone [Cordarone] 200 mg PO DAILY #30 tab Zolpidem [Ambien] 5 mg PO HS PRN #30 tab PRN Reason: Insomnia Discontinued Ciprofloxacin HCl [Cipro] 500 mg PO BID 5 Days #10 tab Spironolactone [Aldactone] 12.5 mg PO DAILY Furosemide [Lasix] 40 mg PO BID Discharge Medication List Multivitamins, Thera [Multivitamin (formulary)] 1 tab PO HS 06/24/15 [History] Aspirin 81 mg PO DAILY 09/04/15 [History] Atorvastatin [Lipitor] 40 mg PO HS tab 09/22/15 [Rx] Clopidogrel [Plavix] 75 mg PO DAILY tab 09/22/15 [Rx] Budesonide/Formoterol Fumarate [Symbicort 160-4.5 Mcg Inhaler] 2 puff INHALATION RT-BID 09/29/15 [History] Ferrous Sulfate [Iron (65 MG Elemental)] 325 mg PO BID 10/04/15 [History] Ipratropium-Albuterol Nebulize [Duoneb 0.5 mg-3 mg/3 ml Soln] 3 ml INHALATION RT-QID PRN 10/29/16 [History] Pantoprazole [Protonix] 40 mg PO DAILY 10/29/16 [History] Docusate [Colace] 100 mg PO HS 12/13/17 [History] Folic Acid 0.8 mg PO HS 12/13/17 [History] Metoprolol Tartrate [Lopressor] 25 mg PO BID 12/13/17 [History] Albuterol Inhaler [Ventolin Hfa Inhaler] 1 - 2 puff INHALATION RT-Q6H PRN 02/16/19 [History] Allopurinol [Zyloprim] 100 mg PO HS 02/16/19 [History] Cyanocobalamin (Vitamin B-12) [Vitamin B-12] 1,000 mcg PO DAILY 02/16/19 [History] L.acidoph,Paracasei, B.lactis [Probiotic] 1 cap PO HS 02/16/19 [History] Cholecalciferol [Vitamin D3 (25 Mcg = 1000 Iu)] 1,000 unit PO HS 02/20/19 [History] Levothyroxine Sodium [Synthroid] 175 mcg PO DAILY 02/20/19 [History] Amiodarone [Cordarone] 200 mg PO DAILY #30 tab 02/22/19 [Rx] Zolpidem [Ambien] 5 mg PO HS PRN #30 tab 04/25/19 [Rx] Furosemide [Lasix] 40 mg PO DAILY tab 05/08/19 [Rx] acetaZOLAMIDE [Diamox] 250 mg PO DAILY #2 tab 05/08/19 [Rx] Follow up Appointment(s)/Referral(s): [facility] [place], [NON-STAFF] - Adolfo Hollis MD [STAFF PHYSICIAN] - 1 Week (call tues for appt) Hari Hou DO [Doctor of Osteopathic Medicine] - 1 Week (call tues for appt) Jovanni Finney MD [Primary Care Provider] - 05/13/19 2:00 pm Patient Instructions/Handouts: COPD (Chronic Obstructive Pulmonary Disease) (DC) Discharge Disposition: HOME WITH HOME HEALTH SERVICES
--- NOTE | 2019-05-08 12:30 | PN ---
PROGRESS NOTE Rogers Mota is a 69-year-old gentleman who was admitted to hospital with shortness of breath, due to a combination of COPD and CHF exacerbation. This morning, patient is feeling better. Denies chest pain, difficulty in breathing has improved. On exam, vital signs are stable. Chest exam reveals occasional rhonchi bilaterally with diminished air entry. Heart exam reveals first and second heart sounds. Systolic murmur in the left lower sternal border. Abdomen is soft. Exam of the extremities did not reveal any edema. Peripheral pulses are felt. Labs show a hemoglobin of 7.9, potassium is 4.9, creatinine is 2.3, BUN is 86. ASSESSMENT: 1. Shortness of breath secondary to congestive heart failure and chronic obstructive pulmonary disease exacerbation. 2. Severe ischemic cardiomyopathy, history of AICD, paroxysmal atrial fibrillation. PLAN: Patient is doing better. Stable for discharge. Follow up with Cardiology in the outpatient setting. MMODL / IJN: [id number] /
--- NOTE | 2019-05-08 12:39 | PN ---
PROGRESS NOTE Patient is seen for followup for acute kidney injury, mainly cardiorenal and secondary to diuresis. Renal function is slightly improved. Lasix was decreased to 40 mg daily yesterday. Creatinine is down to 2.37 from 2.8 mg/dL. Patient feels well. He will be actually discharged today. PHYSICAL EXAMINATION: Blood pressure was 117/65, heart rate 78 per minute. He is afebrile. Examination of the heart S1, S2. Examination of the lungs, bilateral breath sounds are heard. Abdomen is soft, nontender. Examination of the lower extremities shows no evidence of edema. ERP MANAGER exam grossly intact. LABS: Show sodium 134, potassium 4.9, chloride 84, CO2 is 44, BUN 86, serum creatinine 2.37, hemoglobin 7.9 g/dL. ASSESSMENT: 1. Acute kidney injury, cardiorenal and secondary to recent diuresis, currently improved. Patient can be discharged on current dose of Lasix with plans to follow up as outpatient in about one week's time. 2. Metabolic alkalosis secondary to diuretics and give 2 doses of Diamox prior to discharge and follow up with one dose as outpatient. 3. Hyponatremia mainly secondary to renal failure initially hypervolemic, currently improved. 4. Anemia of chronic disease. No active bleeding noted. 5. Congestive heart failure, systolic, acute on chronic. 6. Cardiomyopathy and ejection fraction of about 30%. 7. Iron deficiency status post IV iron. PLAN: Maintain Lasix 40 mg daily for now. Follow up as outpatient in one week's time. Three doses of Diamox total. Patient's is advised regarding need to increase diuretics depending on his weight and edema. MMODL / IJN: [id number] /
== END 2019-05-08 12:40 | disposition home health service (06) | DRG 291 ==
LOC: EC 10:06 → 3SCARD 13:49
PROVIDERS: ADMIT Internal Medicine; ATTEND Internal Medicine
DX: I13.0 Hypertensive heart and chronic kidney disease with heart failure and stage 1 through stage 4 chronic kidney disease, or unspecified chronic kidney disease (principal); I50.23 Acute on chronic systolic (congestive) heart failure; J96.21 Acute and chronic respiratory failure with hypoxia; N17.9 Acute kidney failure, unspecified; E87.3 Alkalosis; N18.4 Chronic kidney disease, stage 4 (severe); E87.1 Hypo-osmolality and hyponatremia; J98.11 Atelectasis; I95.9 Hypotension, unspecified; I27.29 Other secondary pulmonary hypertension; I49.5 Sick sinus syndrome; E87.5 Hyperkalemia; I48.0 Paroxysmal atrial fibrillation; I65.29 Occlusion and stenosis of unspecified carotid artery; J43.9 Emphysema, unspecified; I25.5 Ischemic cardiomyopathy; D63.1 Anemia in chronic kidney disease; I08.0 Rheumatic disorders of both mitral and aortic valves; I25.10 Atherosclerotic heart disease of native coronary artery without angina pectoris; I44.0 Atrioventricular block, first degree; I45.10 Unspecified right bundle-branch block; D50.8 Other iron deficiency anemias; D75.89 Other specified diseases of blood and blood-forming organs; E78.5 Hyperlipidemia, unspecified; E03.9 Hypothyroidism, unspecified; R73.9 Hyperglycemia, unspecified; G47.00 Insomnia, unspecified; M19.90 Unspecified osteoarthritis, unspecified site; L30.9 Dermatitis, unspecified; H26.9 Unspecified cataract; I25.2 Old myocardial infarction; T50.1X5A Adverse effect of loop [high-ceiling] diuretics, initial encounter; Z99.81 Dependence on supplemental oxygen; Z79.82 Long term (current) use of aspirin; Z79.51 Long term (current) use of inhaled steroids; Z79.02 Long term (current) use of antithrombotics/antiplatelets; Z79.890 Hormone replacement therapy; Z79.899 Other long term (current) drug therapy; Z87.891 Personal history of nicotine dependence; Z86.19 Personal history of other infectious and parasitic diseases; Z86.14 Personal history of Methicillin resistant Staphylococcus aureus infection; Z86.010 Personal history of colon polyps; Z95.810 Presence of automatic (implantable) cardiac defibrillator; Z95.5 Presence of coronary angioplasty implant and graft; Z22.39 Carrier of other specified bacterial diseases; Z98.890 Other specified postprocedural states; Z88.8 Allergy status to other drugs, medicaments and biological substances; Z82.49 Family history of ischemic heart disease and other diseases of the circulatory system; Z80.52 Family history of malignant neoplasm of bladder; Z80.3 Family history of malignant neoplasm of breast
CPT/HCPCS: 36415; 71046; 80048; 80053; 83540; 83550; 83735; 83880; 84443; 84484; 85025; 85610; 85730; 87070; 87205; 93005; 94640; 94644; 94760; 96374; 96375; 99291

== ENCOUNTER 2019-05-20 05:27 | Inpatient (IN) | payer MEDICARE, OTHER ==
[2019-05-20 06:17] LABS: Anisocytosis Slight; Basophils # (A) 0.1 k/uL (0-0.2); Basophils % (A) 1 %; Eosinophils # (A) 0.1 k/uL (0-0.7); Eosinophils % (A) 1 %; HCT 25.6 % (39.0-53.0); HGB 7.9 gm/dL (13.0-17.5); Hypochromasia Moderate; Lymphocytes # (A) 0.3 k/uL (1.0-4.8); Lymphocytes % (A) 4 %; MCH 31.7 pg (25.0-35.0); MCHC 31.1 g/dL (31.0-37.0); MCV 101.8 fL (80.0-100.0); Macrocytosis Moderate; Mean Platelet Volume 7.5; Monocytes # (A) 0.5 k/uL (0-1.0); Monocytes % (A) 7 %; Neutrophils % (A) 85 %; RBC 2.51 m/uL (4.30-5.90); RDW 16.9 % (11.5-15.5); WBC 8.2 k/uL (3.8-10.6)
[2019-05-20] MEDS ORDERED: IPRATROPIUM-ALBUTEROL 3 ML NEB INHALATION STA (06:19)
[2019-05-20 06:20] LABS: Platelet Count 180 k/uL (150-450)
[2019-05-20 06:25] LABS: Albumin 3.5 g/dL (3.5-5.0); Magnesium 2.4 mg/dL (1.6-2.3); Potassium 4.1 mmol/L (3.5-5.1); Total Bilirubin 0.5 mg/dL (0.2-1.3); Total Protein 6.2 g/dL (6.3-8.2)
[2019-05-20 06:27] LABS: D-Dimer 0.45 mg/L FEU (<0.60); INR 0.9 (<1.2); Partial Thromboplastin Time 26.2 sec (22.0-30.0); Prothrombin Time 9.9 sec (9.0-12.0)
--- NOTE | 2019-05-20 06:36 | XR ---
EXAMINATION TYPE: XR chest 2V DATE OF EXAM: 05/20/2019 COMPARISON: Chest x-ray one week ago and older x-rays HISTORY: History of COPD with difficulty in breathing. TECHNIQUE: Frontal and lateral views of the chest are obtained. FINDINGS: There is persistent cardiomegaly with dual-lead pacemaker. There is chronic parenchymal ch irene with small right pleural effusion layering into right lung fissure and right basilar atelectasis and/or infiltrate. Some mild underlying interstitial edema is felt present on background parenchymal fibrosis. The osseous structures are intact. IMPRESSION: Correlate for CHF exacerbation on background chronic parenchymal change as there is incr easing interstitial prominence in the periphery likely reflecting interstitial edema. There is persis tent small right pleural effusion. There is slightly more prominent focal right basilar acute infiltr ate and/or atelectasis redemonstrated.
[2019-05-20] MEDS ORDERED: FUROSEMIDE 10 MG/ML 4 ML VIAL IV STA (06:42)
[2019-05-20] MEDS ORDERED: CEFEPIME 1 GM in SODIUM CHLORIDE 0.9% 50 ML IVPB STA (06:43)
[2019-05-20] MEDS ORDERED: LEVOFLOXACIN 750MG-D5W PMX 750 MG in DEXTROSE/WATER 1 150ML.BAG IVPB STA (06:43)
[2019-05-20] MEDS ORDERED: VANCOMYCIN IV PER PHARMACY 1 EACH MISC MISCELLANE PRN (06:45)
--- NOTE | 2019-05-20 06:46 | ED ---
SOB HPI - General Chief Complaint: Shortness of Breath Stated Complaint: Diff Breathing Time Seen by Provider: 05/20/19 06:11 Source: patient, family Mode of arrival: wheelchair Limitations: no limitations - History of Present Illness Initial Comments: 69-year-old male extensive past medical history including previous myocardial infarction with stent on plavix, COPD with chronic hypoxemia on home oxygen at 2 L, congestive heart failure on 40 mg by mouth Lasix, HTN controlled, HLD presenting today for cc of difficulty breathing. Patient states he was recently discharged approximately 10 days ago from [facility] for CHF exacerbation. Patient states that since she has been doing okay at home. He states he has his baseline shortness of breath. He states he is follow-up with both his primary care provider as well as [facility]. He states that he was told at his appointment with pulmonology that he had increased fluid on his lungs. Patient states he denies symptoms at this time. Patient states that all of Saturday 05/19 she had increased shortness of breath.Patient states that hrhe cant take a deep breath. Patient denies any chest pain.Patient denies back pain or legs swelling. Patient denies any increase in shortness of breath when lying flat states it was more significant with exertion. Patient denies any history of DVT or pulmonary embolism states he is compliant with his Plavix. Denies active cancer or hemoptysis. 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 He had his call EMS. He states is provided a breathing treatment which seemed to help his shortness of breath. Remaining review of systems negative. Upon arrival patient does not appear overtly short of breath. VS stable. - Related Data Home Medications Medication Instructions Recorded Confirmed Multivitamins, Thera [Multivitamin 1 tab PO HS 06/24/15 05/20/19 (formulary)] Aspirin 81 mg PO DAILY 09/04/15 05/20/19 Budesonide/Formoterol Fumarate 2 puff INHALATION RT-BID 09/29/15 05/20/19 [Symbicort 160-4.5 Mcg Inhaler] Ferrous Sulfate [Iron (65 MG 325 mg PO BID 10/04/15 05/20/19 Elemental)] Ipratropium-Albuterol Nebulize 3 ml INHALATION RT-QID PRN 10/29/16 05/20/19 [Duoneb 0.5 mg-3 mg/3 ml Soln] Pantoprazole [Protonix] 40 mg PO DAILY 10/29/16 05/20/19 Docusate [Colace] 100 mg PO HS 12/13/17 05/20/19 Folic Acid 0.8 mg PO HS 12/13/17 05/20/19 Metoprolol Tartrate [Lopressor] 25 mg PO BID 12/13/17 05/20/19 Albuterol Inhaler [Ventolin Hfa 1 - 2 puff INHALATION RT-Q6H PRN 02/16/19 05/20/19 Inhaler] Allopurinol [Zyloprim] 100 mg PO HS 02/16/19 05/20/19 Cyanocobalamin (Vitamin B-12) 1,000 mcg PO DAILY 02/16/19 05/20/19 [Vitamin B-12] L.acidoph,Paracasei, B.lactis 1 cap PO HS 02/16/19 05/20/19 [Probiotic] Cholecalciferol [Vitamin D3 (25 1,000 unit PO HS 02/20/19 05/20/19 Mcg = 1000 Iu)] Levothyroxine Sodium [Synthroid] 175 mcg PO DAILY 02/20/19 05/20/19 Previous Rx's Medication Instructions Recorded Atorvastatin [Lipitor] 40 mg PO HS tab 09/22/15 Clopidogrel [Plavix] 75 mg PO DAILY tab 09/22/15 Amiodarone [Cordarone] 200 mg PO DAILY #30 tab 02/22/19 Zolpidem [Ambien] 5 mg PO HS PRN #30 tab 04/25/19 Furosemide [Lasix] 40 mg PO DAILY tab 05/08/19 Allergies Allergy/AdvReac Type Severity Reaction Status Date / Time haloperidol [From Haldol] AdvReac Confusion Verified 05/20/19 07:23 Review of Systems ROS Statement: Those systems with pertinent positive or pertinent negative responses have been documented in the HPI. ROS Other: All systems not noted in ROS Statement are negative. Past Medical History Past Medical History: Heart Failure, COPD, Hypertension, Myocardial Infarction ([place]), Renal Disease, Thyroid Disorder, Hypertension, Myocardial Infarction (AR), Thyroid Disorder Additional Past Medical History / Comment(s): Coronary artery disease, history of severe ischemic cardiomyopathy with systolic heart failure and ejection fraction of 30-35%, sick sinus syndrome, history of coronary artery disease, hypothyroidism, cataracts, chronic anemia, chronic kidney disease, history of insertion of a biventricular dual-chamber AICD, paroxysmal atrial fibrillation, chronic anemia, hypertension Last Myocardial Infarction Date:: 06/24/15 History of Any Multi-Drug Resistant Organisms: C-DIFF, MRSA Date of last positivie culture/infection: 2015 MDRO Source:: sacral wound Past Surgical History: Heart Catheterization With Stent, Orthopedic Surgery, Pacemaker Additional Past Surgical History / Comment(s): 1996 L shoulder rotator cuff surgery, colonoscopy with benign polypectomy.heart stent x1, sacral wound debridement with wound vac in 09/2015 Past Anesthesia/Blood Transfusion Reactions: No Reported Reaction Additional Past Anesthesia/Blood Transfusion Reaction / Comment(s): Pt has never received blood. Date of Last Stent Placement:: 06/2015 Type of Cardiac Device: Permanent Pacemaker Device Placement Date:: 11/25/2016 Past Psychological History: No Psychological Hx Reported Smoking Status: Former smoker Past Alcohol Use History: None Reported Past Drug Use History: None Reported - Past Family History Father Family Medical History: Cancer, Coronary Artery Disease (CAD), Myocardial Infarction ([place]) Additional Family Medical History / Comment(s): Father at age 86yrs. He had a CABG. Bladder cancer. Mother Family Medical History: Cancer Additional Family Medical History / Comment(s): Mother in her 30's of breast cancer. General Exam - General Exam Comments Initial Comments: General: The patient is awake and alert Eye: +3 mm pupils are equal, round and reactive to light, extra-ocular movements are intact. No nystagmus. There is normal conjunctiva bilaterally. No signs of icterus. Ears, nose, mouth and throat: There are moist mucous membranes and no oral lesions. Neck: The neck is supple, there is no tenderness or JVD. Cardiovascular: There is a regular rate and rhythm. No murmur, rub or gallop is appreciated. Respiratory: Respirations are nonlabored however lungs are not clear. Significant rales right-sided greater than left. No wheezes. Minimal rhonchi. No noted stridor. No retractions or abdominal breathing. No pallor or cyanosis. Gastrointestinal: Soft, non-distended, non-tender abdomen without masses or organomegaly noted. There is no rebound or guarding present. Musculoskeletal: Normal ROM, no tenderness. Strength 5/5. Sensation intact. Pulses equal bilaterally 2+. Neurological: A&O x 3. CN II-XII intact grossly, There are no obvious motor or sensory deficits. Coordination appears grossly intact. Speech is normal. Skin: Skin is warm and dry and no rashes or lesions are noted. Negative Rogelio bilaterally, no lower extremity edema. Psychiatric: Cooperative, appropriate mood & affect, normal judgment. Limitations: no limitations Course Vital Signs 05/20/19 05/20/19 05/20/19 05:30 06:32 06:39 Temperature 97.9 F Pulse Rate 75 78 80 Respiratory 26 H 18 18 Rate Blood Pressure 115/58 O2 Sat by Pulse 91 L Oximetry 05/20/19 07:05 Temperature Pulse Rate 78 Respiratory 20 Rate Blood Pressure 122/74 O2 Sat by Pulse 98 Oximetry Medical Decision Making - Medical Decision Making 69-year-old male presenting today for chief complaint of shortness of breath x 1 day. Patient states he has had increased productive cough for the past 2 days. Patient has increased right-sided effusion on chest x-ray concerning for distant heart failure with possible overlying focal consolidation. Patient was recently hospitalized for CHF exacerbation. Patient does not appear fluid overloaded on physical examination. Afebrile. Patient appears to have improving kidney function on laboratory studies. He has chronic elevation of CO2. Patient does appear to have decreased sodium as well as chloride. Troponin was mildly elevated discussed findings with my attending as well as the admitting provider her who both recommend holding medication as they feel this is due to chronic CHF. patient denies chest pressure or pain. No arm pain, back pain, or jaw pain. Patient states after 2 breathing treatments one prior to arrival one in the emergency department his breathing has improved. Patient is oxygen on 4 L. D- dimer within normal limits. Patient has no history of cancer previous DVT and heart rate is within normal limits. This is time I feel patient could have possible hospital-acquired pneumonia with compounding chronic CHF as cause of new SOB. Patient case was discussed with both attending and the accepting admitting provider Dr. Finney in detail (discussing lab and imaging studies). Patient admitted with Cardiology, pulmonology and nephrology consultation. No further orders. Lasix and abx initiated in the ER. Blood cultures pending. Patient remains hold in ER, however admitting provider with no take over care. - Lab Data Result diagrams: 05/20/19 05:45 05/20/19 05:45 Lab Results 05/20/19 05/20/19 05/20/19 Range/Units 05:45 05:45 05:45 WBC 8.2 (3.8-10.6) k/uL RBC 2.51 L (4.30-5.90) m/uL Hgb 7.9 L (13.0-17.5) gm/dL Hct 25.6 L (39.0-53.0) % MCV 101.8 H (80.0-100.0) fL MCH 31.7 (25.0-35.0) pg MCHC 31.1 (31.0-37.0) g/dL RDW 16.9 H (11.5-15.5) % Plt Count 180 D (150-450) k/uL Neutrophils % 85 % Lymphocytes % 4 % Monocytes % 7 % Eosinophils % 1 % Basophils % 1 % Neutrophils # 7.0 (1.3-7.7) k/uL Lymphocytes # 0.3 L (1.0-4.8) k/uL Monocytes # 0.5 (0-1.0) k/uL Eosinophils # 0.1 (0-0.7) k/uL Basophils # 0.1 (0-0.2) k/uL Hypochromasia Moderate Anisocytosis Slight Macrocytosis Moderate PT (9.0-12.0) sec INR (<1.2) APTT (22.0-30.0) sec D-Dimer (<0.60) mg/L FEU Sodium 129 L (137-145) mmol/L Potassium 4.1 (3.5-5.1) mmol/L Chloride 78 L (98-107) mmol/L Carbon Dioxide 43 H* (22-30) mmol/L Anion Gap 8 mmol/L BUN 35 H (9-20) mg/dL Creatinine 1.53 H (0.66-1.25) mg/dL Est GFR (CKD-EPI)AfAm 54 (>60 ml/min/1.73 sqM) Est GFR (CKD-EPI)NonAf 46 (>60 ml/min/1.73 sqM) Glucose 127 H (74-99) mg/dL Calcium 9.0 (8.4-10.2) mg/dL Magnesium 2.4 H (1.6-2.3) mg/dL Total Bilirubin 0.5 (0.2-1.3) mg/dL AST 23 (17-59) U/L ALT 21 (21-72) U/L Alkaline Phosphatase 65 (38-126) U/L Troponin I (0.000-0.034) ng/mL NT-Pro-B Natriuret Pep 71512 pg/mL Total Protein 6.2 L (6.3-8.2) g/dL Albumin 3.5 (3.5-5.0) g/dL 05/20/19 05/20/19 Range/Units 05:45 05:45 WBC (3.8-10.6) k/uL RBC (4.30-5.90) m/uL Hgb (13.0-17.5) gm/dL Hct (39.0-53.0) % MCV (80.0-100.0) fL MCH (25.0-35.0) pg MCHC (31.0-37.0) g/dL RDW (11.5-15.5) % Plt Count (150-450) k/uL Neutrophils % % Lymphocytes % % Monocytes % % Eosinophils % % Basophils % % Neutrophils # (1.3-7.7) k/uL Lymphocytes # (1.0-4.8) k/uL Monocytes # (0-1.0) k/uL Eosinophils # (0-0.7) k/uL Basophils # (0-0.2) k/uL Hypochromasia Anisocytosis Macrocytosis PT 9.9 (9.0-12.0) sec INR 0.9 (<1.2) APTT 26.2 (22.0-30.0) sec D-Dimer 0.45 (<0.60) mg/L FEU Sodium (137-145) mmol/L Potassium (3.5-5.1) mmol/L Chloride (98-107) mmol/L Carbon Dioxide (22-30) mmol/L Anion Gap mmol/L BUN (9-20) mg/dL Creatinine (0.66-1.25) mg/dL Est GFR (CKD-EPI)AfAm (>60 ml/min/1.73 sqM) Est GFR (CKD-EPI)NonAf (>60 ml/min/1.73 sqM) Glucose (74-99) mg/dL Calcium (8.4-10.2) mg/dL Magnesium (1.6-2.3) mg/dL Total Bilirubin (0.2-1.3) mg/dL AST (17-59) U/L ALT (21-72) U/L Alkaline Phosphatase (38-126) U/L Troponin I 0.049 H* (0.000-0.034) ng/mL NT-Pro-B Natriuret Pep pg/mL Total Protein (6.3-8.2) g/dL Albumin (3.5-5.0) g/dL - EKG Data EKG Comments: Ventricular rate 79 bpm, SC interval 264 ms, QRS mandaen 178 ms QT/QTC 452/518 ms. This is sinus rhythm with a first-degree AV block noted. There is also redemonstrated right bundle branch block which was present on previous EKGs. Nonspecific T wave abnormalities. These are present on previous EKGs. EKG was self interpreted however it was reviewed by myself provider and compared with previous EKGs. Disposition Clinical Impression: Shortness of breath, Pneumonia, Cough, Pleural effusion, Hyponatremia, Hypochloremia, Elevated CO2 level, Elevated troponin Disposition: ADMITTED IP TO THIS HOSP Condition: Stable Time of Disposition: 08:05 Decision to Admit Reason: Admit from EC Decision Date: 05/20/19 Decision Time: 08:05
[2019-05-20] MEDS: SODIUM CHLORIDE 0.9% 500 ML 500 ML IV SCH (07:02)
[2019-05-20] MEDS ORDERED: NALOXONE 0.4 MG/ML 1 ML VIAL IV PRN (07:09)
[2019-05-20] MEDS ORDERED: VANCOMYCIN 1,250 MG in SODIUM CHLORIDE 0.9% 250 ML IVPB SCH (08:00)
[2019-05-20] MEDS: IPRATROPIUM-ALBUTEROL 3 ML NEB INHALATION PRN ×4 (10:44→22:31)
[2019-05-20] MEDS: SYMBICORT 160-4.5 MCG INHALER INHALATION SCH ×2 (10:45→18:58)
[2019-05-20] MEDS: AMIODARONE 200 MG TAB PO SCH (11:29)
[2019-05-20] MEDS: CLOPIDOGREL 75 MG TAB PO SCH (11:29)
[2019-05-20] MEDS: ASPIRIN 81 MG PO SCH (11:29)
[2019-05-20] MEDS: PANTOPRAZOLE 40 MG TABLET PO SCH (11:38)
[2019-05-20] MEDS: METOPROLOL TARTRATE 25 MG TAB PO SCH ×2 (11:55→20:06)
[2019-05-20] MEDS: CYANOCOBALAMIN 500 MCG TAB PO SCH (12:12)
[2019-05-20] MEDS: LEVOTHYROXINE 75 MCG TAB PO SCH (12:12)
[2019-05-20] MEDS: LEVOTHYROXINE 100 MCG TAB PO SCH (12:12)
--- NOTE | 2019-05-20 12:40 | P.CNPUL ---
History of Present Illness Consult date: 05/20/19 Requesting physician: Shira Best Reason for consult: dyspnea, abnormal CXR/CT Chief complaint: Dyspnea History of present illness: This is a 69-year-old white male patient with history of chronic congestive heart failure with systolic dysfunction and baseline ejection fraction of 30%, sick sinus syndrome status post dual-chamber AICD implantation, severe stage IV COPD with a baseline FEV1 of 22% of predicted on home oxygen, hypertension, myocardial infarction, coronary artery disease with previous stenting, chronic kidney disease, hypothyroidism, paroxysmal atrial fibrillation, chronic anemia, and former history of smoking was recently hospitalized for acute exacerbation of CHF and discharged home in stable condition on 05/08/2019. Following discharge patient does feel better however last week he started getting increasingly more dyspneic, but he denies any chest pain, he denies any significant weight increase or lower extremity edema, she denied any fever or chills, denied any palpitations. Did see Dr. Hou in follow-up a week ago on , and chest x-ray was taken patient was told that he still has a fluid on his lungs, and to increase his dose of Lasix to 40 mg twice daily. Patient did feel better for a day, however he only increased his dose of Lasix for 1 d ay, and he started becoming more dyspneic and came into the hospital for evaluation. He did see Dr. Lindo yesterday on 05/19/2019 and underwent a stress test the results of which are unknown to us at this time. Chest x-ray was completed today showing increasing interstitial prominence, cyst and small right pleural effusion, and slightly more prominent focal right basilar acute infiltrates with the possibility of infectious process in addition to CHF. Patient was given a dose of cefepime, Levaquin and vancomycin, he was given a one dose of IV Lasix, and restarted on his home dose Lasix. And this consultation was initiated for evaluation of his dyspnea Review of Systems All systems: negative Constitutional: Denies chills, Denies fever Eyes: denies blurred vision, denies pain Ears, nose, mouth and throat: Denies headache, Denies sore throat Cardiovascular: Denies chest pain, Denies shortness of breath Respiratory: Reports dyspnea, Denies cough Gastrointestinal: Denies abdominal pain, Denies diarrhea, Denies nausea, Denies vomiting Musculoskeletal: Denies myalgias Integumentary: Denies pruritus, Denies rash Neurological: Denies numbness, Denies weakness Psychiatric: Denies anxiety, Denies depression Endocrine: Denies fatigue, Denies weight change Past Medical History Past Medical History: Heart Failure, COPD, Hypertension, Myocardial Infarction ([place]), Renal Disease, Thyroid Disorder, Hypertension, Myocardial Infarction ([place]), Thyroid Disorder Additional Past Medical History / Comment(s): Coronary artery disease, history of severe ischemic cardiomyopathy with systolic heart failure and ejection fraction of 30-35%, sick sinus syndrome, history of coronary artery disease, hypothyroidism, cataracts, chronic anemia, chronic kidney disease, history of insertion of a biventricular dual-chamber AICD, paroxysmal atrial fibrillation, chronic anemia, hypertension Last Myocardial Infarction Date:: 06/24/15 History of Any Multi-Drug Resistant Organisms: C-DIFF, MRSA Date of last positivie culture/infection: 2015 MDRO Source:: sacral wound Past Surgical History: Heart Catheterization With Stent, Orthopedic Surgery, Pacemaker Additional Past Surgical History / Comment(s): 1996 L shoulder rotator cuff surgery, colonoscopy with benign polypectomy.heart stent x1, sacral wound debridement with wound vac in 09/2015 Past Anesthesia/Blood Transfusion Reactions: No Reported Reaction Additional Past Anesthesia/Blood Transfusion Reaction / Comment(s): Pt has never received blood. Date of Last Stent Placement:: 06/2015 Type of Cardiac Device: Permanent Pacemaker Device Placement Date:: 11/25/2016 Past Psychological History: No Psychological Hx Reported Smoking Status: Former smoker Past Alcohol Use History: None Reported Past Drug Use History: None Reported - Past Family History Father Family Medical History: Cancer, Coronary Artery Disease (CAD), Myocardial Infarc tion ([place]) Additional Family Medical History / Comment(s): Father at age 86yrs. He had a CABG. Bladder cancer. Mother Family Medical History: Cancer Additional Family Medical History / Comment(s): Mother in her 30's of breast cancer. Medications and Allergies Home Medications Medication Instructions Recorded Confirmed Type Multivitamins, Thera [Multivitamin 1 tab PO HS 06/24/15 05/20/19 History (formulary)] Aspirin 81 mg PO DAILY 09/04/15 05/20/19 History Atorvastatin [Lipitor] 40 mg PO HS tab 09/22/15 05/20/19 Rx Clopidogrel [Plavix] 75 mg PO DAILY tab 09/22/15 05/20/19 Rx Budesonide/Formoterol Fumarate 2 puff INHALATION RT-BID 09/29/15 05/20/19 History [Symbicort 160-4.5 Mcg Inhaler] Ferrous Sulfate [Iron (65 MG 325 mg PO BID 10/04/15 05/20/19 History Elemental)] Ipratropium-Albuterol Nebulize 3 ml INHALATION RT-QID PRN 10/29/16 05/20/19 History [Duoneb 0.5 mg-3 mg/3 ml Soln] Pantoprazole [Protonix] 40 mg PO DAILY 10/29/16 05/20/19 History Docusate [Colace] 100 mg PO HS 12/13/17 05/20/19 History Folic Acid 0.8 mg PO HS 12/13/17 05/20/19 History Metoprolol Tartrate [Lopressor] 25 mg PO BID 12/13/17 05/20/19 History Albuterol Inhaler [Ventolin Hfa 1 - 2 puff INHALATION RT-Q6H PRN 02/16/19 History Inhaler] Allopurinol [Zyloprim] 100 mg PO HS 02/16/19 05/20/19 History Cyanocobalamin (Vitamin B-12) 1,000 mcg PO DAILY 02/16/19 05/20/19 History [Vitamin B-12] L.acidoph,Paracasei, B.lactis 1 cap PO HS 02/16/19 05/20/19 History [Probiotic] Cholecalciferol [Vitamin D3 (25 1,000 unit PO HS 02/20/19 05/20/19 History Mcg = 1000 Iu)] Levothyroxine Sodium [Synthroid] 175 mcg PO DAILY 02/20/19 05/20/19 History Amiodarone [Cordarone] 200 mg PO DAILY #30 tab 02/22/19 05/20/19 Rx Zolpidem [Ambien] 5 mg PO HS PRN #30 tab 04/25/19 05/20/19 Rx Furosemide [Lasix] 40 mg PO DAILY tab 05/08/19 05/20/19 Rx Allergies Allergy/AdvReac Type Severity Reaction Status Date / Time haloperidol [From Haldol] AdvReac Confusion Verified 05/20/19 07:23 Physical Exam Vitals: Vital Signs Temp Pulse Resp BP Pulse Ox 05/20/19 11:17 86 16 114/64 97 05/20/19 11:01 80 05/20/19 10:45 84 05/20/19 09:17 76 16 122/68 99 05/20/19 07:05 78 20 122/74 98 05/20/19 06:39 80 18 05/20/19 06:32 78 18 05/20/19 05:30 97.9 F 75 26 H 115/58 91 L Intake and Output 05/19/19 05/20/19 05/20/19 22:59 06:59 14:59 Output Total 600 Balance -600 Output: Urine 600 Other: # Voids 3 Weight 61.235 kg GENERAL EXAM: Alert, extremely pleasant 69-year-old white male, on 4 L of oxy gen with a pulse ox of 97%, comfortable in no apparent distress. HEAD: Normocephalic/atraumatic. EYES: Normal reaction of pupils, equal size. Conjunctiva pink, sclera white. NOSE: Clear with pink turbinates. THROAT: No erythema or exudates. NECK: No masses, no JVD, no thyroid enlargement, no adenopathy. CHEST: No chest wall deformity. Symmetrical expansion. LUNGS: Equal air entry with bibasilar crackles, diminished breath sounds bilaterally at the bases, but no significant wheezing or rhonchi CVS: Regular rate and rhythm, normal S1 and S2, no gallops, no murmurs, no rubs ABDOMEN: Soft, nontender. No hepatosplenomegaly, normal bowel sounds, no guarding or rigidity. EXTREMITIES: No clubbing, no edema, no cyanosis, 2+ pulses and upper and lower extremities. MUSCULOSKELETAL: Muscle strength and tone normal. SPINE: No scoliosis or deformity SKIN: No rashes CENTRAL NERVOUS SYSTEM: Alert and oriented -3. No focal deficits, tone is normal in all 4 extremities. PSYCHIATRIC: Alert and oriented -3. Appropriate affect. Intact judgment and insight. Results - Laboratory Findings CBC and BMP: 05/20/19 05:45 05/20/19 05:45 PT/INR, D-dimer PT 9.9 sec (9.0-12.0) 05/20/19 05:45 INR 0.9 (<1.2) 05/20/19 05:45 D-Dimer 0.45 mg/L FEU (<0.60) 05/20/19 05:45 Abnormal lab findings: Abnormal Labs 05/20/19 05/20/19 05/20/19 05:45 05:45 05:45 RBC 2.51 L Hgb 7.9 L Hct 25.6 L MCV 101.8 H RDW 16.9 H Lymphocytes # 0.3 L Sodium 129 L Chloride 78 L Carbon Dioxide 43 H* BUN 35 H Creatinine 1.53 H Glucose 127 H Magnesium 2.4 H Troponin I 0.049 H* Total Protein 6.2 L - Diagnostic Findings Chest x-ray: report reviewed, image reviewed Assessment and Plan Plan: Assessment: #1. Acute dyspnea related to acute exacerbation of chronic congestive heart failure with systolic dysfunction and EF of 30-35% #2. Chronic kidney disease, stage III at baseline #3. Admission for acute CHF #4. Hyponatremia likely hypercholesterolemia, related to acute CHF #5. Recent history of acute kidney injury, cardiorenal in nature, recovering #6. Metabolic alkalosis likely secondary to diuresis #7. Chronic anemia #8. Ischemic cardiomyopathy with ejection fraction of 30-35% #9. Severe COPD with FEV1 of 22% of predicted on home oxygen #10. Sick sinus syndrome status post dual ICD placement in 2017 #11. Paroxysmal atrial fibrillation Plan: We'll continue the IV diuresis with 40 mg of Lasix every 12 hours, we'll switch the antibiotics to Zosyn and Levaquin, pro-calcitonin has been ordered and is pending at this time, doubt underlying infectious process however chest x-ray shows questionable infiltrate in the right base, and interstitial edema related to acute exacerbation of CHF. Will await the results of the blood culture and pro-calcitonin, patient is afebrile, looks nontoxic. No cough or congestion. Continue nebulized bronchodilators. We'll dropped IV fluids down to 20 mL an hour, we'll place the patient on 1200 fluid restriction, nephrology consultation is pending. I performed a history & physical examination of the patient and discussed their management with my nurse practitioner, Eliz Barnard. I reviewed the nurse practitioner's note and agree with the documented findings and plan of care. Lung sounds are positive for a few bibasilar crackles. The findings and the impression was discussed with the patient. I attest to the documentation by the nurse practitioner. Time with Patient: Greater than 30
[2019-05-20] MEDS: LEVOFLOXACIN 500 MG TAB PO SCH (14:49)
--- NOTE | 2019-05-20 16:38 | HP ---
HISTORY AND PHYSICAL DATE OF SERVICE: 05/20/2019 FULL CODE. ALLERGIES: HALDOL. This patient is a 69-year-old white male. He is in module #6 in the emergency room, where he is seen and evaluated. CHIEF COMPLAINT: Patient was brought in by his in a car because of severe shortness of breath and he could not breathe. This started at 12 midnight and progressed. They arrived at 4:00 a.m. in the emergency room. He was seen by Dr. Mir Dumont. However, the one who spoke to me was his physician assistant warehouse manager. HISTORY OF PRESENT ILLNESS: This patient is a 69-year-old white male who arrived in a wheelchair with his with the underlying history of shortness of breath and hypoxemia. He was recently discharged from the hospital with underlying ischemic cardiomyopathy. He was recently discharged about 10 days ago. The patient has had recurrent admissions to the hospital. He was admitted to the hospital 3 times between April and May. Yesterday on Friday he had a stress test at [facility] and they are supposed to see him again next week to discuss the results. His primary dolphin researcher is Dr. Hollis. The patient had progressively severe shortness of breath during the night. He could not breathe. He woke up in the middle of the night and was not able to unable to breathe, feeling that he was choking, like drowning. His started some inhalation therapy for him; however, there was no improvement. In the emergency room he was seen by the PA and they thought that he had pneumonia. They started him in the emergency room on vancomycin and Levaquin With the recurrent admission to the hospital, the nurse practitioner talked to me, and I requested that the patient be seen by Pulmonary, Dr. Hou, for evaluation and treatment, and also by Nephrology for his underlying hyponatremia. His renal function is improving, and to me that means that he has more fluid with the resolution of hyponatremia. The creatinine and BUN dropped, as his baseline creatinine is 2. With this information, the patient is readmitted to the hospital to be seen by Cardiology, Pulmonary and Nephrology. He has anemia of chronic disease. On his last admission he had Procrit through consultation with Dr. Pollard, Hematology/Oncology, and at that time he sent his nurse practitioner and they gave him the Procrit. The patient stated that his shortness of breath continued until pattern painter, with inability to sleep, in spite of having inhalation therapy and breathing treatments. They were still not helpful. At that time he told his to bring him to the emergency room, where he was seen by the nurse practitioner; physician was not available to talk to me, as he left the facility. PAST MEDICAL HISTORY: His past medical history includes: 1. History of ischemic cardiomyopathy with ejection fraction around 20%.-30% 2. Chronic kidney disease, stage IV, and on his last admission Dr. Kyle decreased his Lasix to 40 mg once a day. However, this did not hold him up from re- accumulating the fluid, and he became dilutional. His sodium was normal last time, or close to normal, and now he is hyponatremic, with normal renal function as mentioned above, indicating to me his accumulating left-sided congestive heart failure. 3. History of pacemaker placement with sick sinus syndrome. 4. Coronary artery disease. 5. Chronic anemia. 6. Hypothyroidism. 7. AICD with biventricular pacemaker. He is now on the hypotensive side from the hypertension history secondary to his ejection fraction. 8. Last myocardial infarction was on 06/24/2015. 9. Remote history of C difficile and MRSA in 2016, three years ago. 10.Heart catheterization with stent (one). His stent was placed in June 2015. 11.Orthopedic surgery. 12.Left shoulder rotator cuff surgery. 13.Colonoscopy. 14.Benign polypectomy. 15.History of sacral wound debridement with V.A.C. his stent was placed on June 2015. 16.His permanent pacemaker was placed on 11/25/2016. 17.He is a former smoker, 2 packs per day for more than 30 years, and he had emphysema, COPD and pulmonary hypertension. FAMILY HISTORY: He is . He has a son and a daughter. His father at the age of 86 and had coronary artery bypass graft and bladder cancer. History of cancer in the family. His mother of breast cancer in her 30s. REVIEW OF SYSTEMS: NEUROPSYCHIATRY: Patient is conscious, alert. CARDIOVASCULAR: He has history of chronic atrial fibrillation and sick sinus syndrome and he is on antiarrhythmic medication as well as cardiac medication with the underlying ischemic cardiomyopathy. He is severely short of breath with a combined problem between the chest, the lung and the heart. RESPIRATORY: Shortness of breath without exertion, in bed, and he could not breathe, suspicious for pneumonia, as the PA told me that he may have pneumonia. They gave him antibiotics and consultation with Dr. Hou to evaluate and treat. GI: No symptoms. : No symptoms. MUSCULOSKELETAL: He has severe debility associated with inability to ambulate and shortness of breath now without exertion, which is tremendous at this time for the patient. His last stress test was yesterday; I am not sure if this precipitated his acute attack or not. The stress test was done by order of Dr. Hollis in the cardiology building. NEUROLOGICAL: He is conscious, alert, oriented and able to communicate with his , but he is severely short of breath. SKIN: Warm and dry. No itching or pruritus. PSYCHIATRY: Appropriate mood and normal judgment. However, he is anxious about his illness and disease. LABORATORY DATA: His white count is 8.2 with hemoglobin 7.9, hematocrit 25.6 with the underlying anemia of chronic disease. The chemistry indicates sodium 129 with hyponatremia, potassium 4.1, chloride 78. Carbon dioxide is 43 and his BUN is 35 and creatinine 1.53. His sugar is 127. When they did the blood test, they did a D-dimer which was normal. He had chronic elevation of carbon dioxide. Dr. Hou in the past did not address this problem. However, Nephrology put him on Diamox for 3 days only until he saw them on the last admission. At that time they followed him as outpatient. PHYSICAL EXAMINATION: Patient was seen and evaluated by myself today 05/20/2019. His temperature was 97.9 on admission, pulse 75, respiratory rate 26, blood pressure 115/58 with the pulse ox 91% on 3 L with severe hypoxemia. Subsequently his blood pressure showed mild improvement. Patient is conscious, alert, oriented x3 with his at bedside. HEENT: The head was normocephalic, atraumatic. He has central baldness and dentures, upper and lower. Pupils equal, reactive. Hearing with minimal hearing deficit. However, he can hear me in the discussion. NECK: Supple. No JVD. No thyromegaly. No lymphadenopathy. However, patient has history of hypothyroidism. CHEST: He has rales bilaterally of the chest and that is up to 2/3 of the lung with the acute shortness of breath secondary to sitting up with probably water. However, they thought that he had pneumonia and they started him on one dose of antibiotics vancomycin and Levaquin. We will see what Dr. Hou's opinion is about continuing the antibiotics , aware of that and treated it. HEART: PMI in the fifth intercostal space outside midclavicular line. He had cardiomegaly. He had poor ejection fraction and he had a left infraclavicular pacemaker and AICD. ABDOMEN: Soft, nontender. Positive bowel sounds. No suprapubic tenderness. He had a bowel movement in the hospital and he is able to urinate on his own. NEUROLOGICAL EXAMINATION: No lateralizing sign. No tremor. No shakiness. No evidence of cranial nerve deficit at the time of the exam. PSYCHIATRY: He has underlying anxiety with his progressive illness and progressive shortness of breath, now even without exertion. ASSESSMENT: 1. He had electrolyte imbalance with underlying low sodium and drop in BUN and creatinine, which is less than his baseline, which is 2, with the underlying chronic kidney disease, stage IV, and probably he has more fluid, with hyponatremia dilution hyponatremia ,will cut the IV fluid to to keep open until seen by Nephrology. 2. He has anemia of chronic disease and he has been receiving Procrit by Dr. Pollard. His last Procrit was during his last admission about 10 to 14 days ago. 3. Chronic kidney disease, stage IV. But currently, because of dilutional, he has stage III. 4. Liver enzymes were normal. However, the beta natriuretic peptide is 12,200, which is extremely high with the underlying acute on the top of chronic congestive heart failure and to me is biventricular and his total protein is 6.2, albumin 3.5. His pro time and INR were normal and D-dimer was normal at 0.45. 5. His EKG was sinus rhythm and he has 1 st-degree AV block and right bundle branch block. However, the patient has paroxysmal atrial fibrillation and also mild elevation of troponin at 0.049 with the acute exacerbation of congestive heart failure, mostly left-sided, with shortness of breath without exertion. 6. Underlying questionable pneumonia with the history of pulmonary hypertension and chronic obstructive pulmonary disease and emphysema. 7. Hypothyroidism. 8. Status post stress test done yesterday in Dr. Hollis's office behind [facility]. Pulmonary hypertension is considered. RECOMMENDATION AND PLAN: 1. Consultation with Cardiology. 2. Consultation with Nephrology. 3. Consultation with Pulmonary, Dr. Hou, who has been seeing him regularly. Hopefully we understand from the patient and his dilemma that he probably had cardiorenal syndrome and if you diurese him, he breathes better. However, his kidney function will be disturbed and increased acutely. We will see the opinion of Nephrology and Pulmonary as well. As for Pulmonary, if we need any further antibiotics or not. As for Cardiology, if anything else needs to be added to his care or other ideas that may be presented to the to understand the dilemma of her 's care with repeated admissions, 3 times lately. [id number] / IJN: [id number] / COLLEEN
[2019-05-20] MEDS: methylPREDNISolone SOD SUCCI 40 MG/ML 1 ML VIAL IV SCH ×2 (17:14→23:57)
[2019-05-20] MEDS: PIPERACILLIN-TAZOBACTAM 3.375 GM in SODIUM CHLORIDE 0.9% 100 ML IVPB SCH ×2 (17:15→23:56)
[2019-05-20 17:58] VITALS: BMI 21.1
[2019-05-20] MEDS: ATORVASTATIN 40 MG TAB PO SCH (20:06)
[2019-05-20] MEDS: ALLOPURINOL 100 MG TAB PO SCH (20:06)
[2019-05-20] MEDS: LACTOBACILLUS ACIDOPH & BULGAR 1 EACH PACKET PO SCH (20:06)
[2019-05-20] MEDS: FUROSEMIDE 10 MG/ML 4 ML VIAL IV SCH (20:06)
[2019-05-20] MEDS: CHOLECALCIFEROL 1,000 UNIT TAB PO SCH (20:06)
[2019-05-20] MEDS: FOLIC ACID 1 MG TAB PO SCH (20:06)
[2019-05-20] MEDS: MULTIVITAMINS, THERA 1 EACH TAB PO SCH (20:06)
[2019-05-20] MEDS: DOCUSATE 100 MG CAP PO SCH (20:06)
[2019-05-20] MEDS: acetaZOLAMIDE 250 MG TAB PO SCH (20:53)
[2019-05-20] MEDS ORDERED: METOPROLOL TARTRATE 25 MG TAB PO SCH (21:00)
[2019-05-20 21:05] LABS: Glucose,Whole Blood 193 mg/dL (75-99)
--- NOTE | 2019-05-20 22:11 | CONS ---
CONSULTATION REASON FOR CONSULT: Renal failure. HISTORY OF PRESENT ILLNESS: The patient is a 69-year-old male with a history of CHF, mainly systolic. He also has underlying COPD. He was admitted to the hospital with complaints of shortness of breath. He denied any significant fever. No significant swelling in his lower extremities. Patient has had a cough as well. He does have underlying CKD, stage III, secondary to nephrosclerosis with baseline creatinine about 1.4 to 1.7 mg/dL. Hemoglobin was at 7.9 g/dL this admission. Chest x-ray shows changes suggestive of CHF. No history of abdominal pain, nausea, vomiting or diarrhea. PAST MEDICAL HISTORY: 1. CKD, stage III. 2. CHF. 3. Cardiomyopathy. 4. Atrial fibrillation, systolic heart failure. PAST SURGICAL HISTORY: 1. Cardiac catheterization. 2. Colonoscopy. 3. Pacemaker placement. 4. Coronary stent placement. SOCIAL HISTORY: Negative for current smoking or alcohol abuse. Patient is a former smoker. REVIEW OF SYSTEMS: As per HPI. Other systems negative. MEDICATIONS: Medications at home prior to admission included: 1. Ambien. 2. Protonix. 3. Multivitamins. 4. Lopressor. 5. Synthroid. 6. Probiotic. 7. Lasix. 8. Folic acid. 9. Iron. 10.Colace. 11.Vitamin B12. 12.Plavix. 13.Vitamin D3. 14.Lipitor. 15.Aspirin. 16.Cordarone. 17.Zyloprim. PHYSICAL EXAMINATION: Patient is comfortable, awake. He is not in any acute distress. Blood pressure was 120/60, heart rate 75 per minute. He is afebrile. EXAMINATION OF THE HEART: S1 and S2. EXAMINATION OF LUNGS: Bilateral breath sounds are heard. Decreased breath sounds at bases. ABDOMEN: Soft, non-tender. Examination of lower extremities shows no evidence of edema. 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 LABS: Sodium of 129, potassium 4.1, chloride 78. CO2 is 43, BUN 35, serum creatinine 1.53, magnesium 2.4. ProBNP 12,200. Urine osmolality 274. ASSESSMENT: 1. Dyspnea secondary to chronic obstructive pulmonary disease exacerbation versus congestive heart failure. Chest x-ray shows evidence of pulmonary vascular congestion. Patient is maintained on Lasix 40 mg IV q.12 hours, which we can continue. Renal function is not far from baseline. 2. Metabolic alkalosis secondary to diuretics. Add Diamox. 3. Hyponatremia which is hypervolemic. Repeat labs in a.m. and continue with the Lasix for now. 4. Anemia. No active bleeding noted. Iron saturation last admission was 10%. Patient did receive IV iron. I will check it again this admission. 5. Chronic kidney disease, stage III, secondary to nephrosclerosis. Baseline creatinine around 1.5 to 1.7 mg/dL. 6. Chronic obstructive pulmonary disease exacerbation. PLAN: Add Diamox. Continue with IV Lasix for now. Repeat labs in a.m. Repeat chest x-ray in a.m. Repeat iron profile. MMODL / IJN: [id number] /
[2019-05-21 06:13] LABS: Glucose,Whole Blood 206 mg/dL (75-99)
[2019-05-21] MEDS: LEVOTHYROXINE 75 MCG TAB PO SCH (06:24)
[2019-05-21] MEDS: INSULIN ASPART (NovoLOG) 100 UNIT/ML VIAL SQ SCH ×4 (06:24→20:37)
[2019-05-21] MEDS: LEVOTHYROXINE 100 MCG TAB PO SCH (06:24)
[2019-05-21] MEDS ORDERED: LEVOTHYROXINE 100 MCG TAB PO SCH (06:30)
[2019-05-21] MEDS ORDERED: LEVOTHYROXINE 75 MCG TAB PO SCH (06:30)
[2019-05-21] MEDS: PANTOPRAZOLE 40 MG TABLET PO SCH (06:34)
[2019-05-21] MEDS ORDERED: PANTOPRAZOLE 40 MG TABLET PO SCH (07:30)
[2019-05-21] MEDS: SYMBICORT 160-4.5 MCG INHALER INHALATION SCH ×2 (08:43→19:56)
[2019-05-21] MEDS: PIPERACILLIN-TAZOBACTAM 3.375 GM in SODIUM CHLORIDE 0.9% 100 ML IVPB SCH ×3 (08:43→23:32)
[2019-05-21] MEDS: IPRATROPIUM-ALBUTEROL 3 ML NEB INHALATION SCH ×4 (08:43→19:56)
[2019-05-21] MEDS: CLOPIDOGREL 75 MG TAB PO SCH (08:45)
[2019-05-21] MEDS: acetaZOLAMIDE 250 MG TAB PO SCH ×2 (08:45→20:36)
[2019-05-21] MEDS: CYANOCOBALAMIN 500 MCG TAB PO SCH (08:45)
[2019-05-21] MEDS: ASPIRIN 81 MG PO SCH (08:45)
[2019-05-21] MEDS: methylPREDNISolone SOD SUCCI 40 MG/ML 1 ML VIAL IV SCH ×3 (08:46→23:33)
[2019-05-21] MEDS: FUROSEMIDE 10 MG/ML 4 ML VIAL IV SCH (08:46)
[2019-05-21] MEDS: AMIODARONE 200 MG TAB PO SCH (08:49)
[2019-05-21] MEDS: METOPROLOL TARTRATE 25 MG TAB PO SCH ×2 (08:56→20:45)
--- NOTE | 2019-05-21 08:57 | P.CRDCN ---
History of Present Illness Consult date: 05/21/19 Requesting physician: Jovanni Finney History of present illness: This is a pleasant 69-year-old gentleman who follows regularly with Dr. Lindo in the office. He has a known history of coronary artery disease with prior left main stenting, carotid artery disease, paroxysmal atrial fibrillation, ischemic cardio myopathy with prior AICD implantation, hypothyroidism, COPD, chronic anemia and chronic kidney disease who presents to the hospital with symptoms of shortness of breath just been progressively worsening over the past one week or so. He states that he did see Dr. Lindo in the office on Friday underwent a stress test at that time. Chest x-ray shows congestive heart failure exacerbation on the background of chronic parenchymal change, increasing interstitial prominence likely reflecting interstitial edema. There is also a small right-sided pleural effusion. EKG shows normal sinus rhythm with a first-degree AV block and a right bundle branch block pattern. Blood pressure 118/50 with a heart rate in the 70s, afebrile. White blood cell count 8.2, hemoglobin 7.9, platelet count 180. Pro calcitonin 0.15. Sodium 129, potassium 4.1, chloride 78, CO2 43, BUN 35, creatinine 1.5, magnesium 2.4, BNP level 12,1200. Troponin 0.049, 0.047. At the time of my examination this morning, the patient is sitting up in chair at bedside, is present. He is quite frustrated at the fact that he's had multiple readmissions with heart failure exacerbation. Patient was initiated on IV Lasix, and has been diuresing. Past Medical History Past Medical History: Heart Failure, COPD, Hypertension, Myocardial Infarction (NM), Renal Disease, Thyroid Disorder, Hypertension, Myocardial Infarction (NM), Thyroid Disorder Additional Past Medical History / Comment(s): Coronary artery disease, history of severe ischemic cardiomyopathy with systolic heart failure and ejection fraction of 30-35%, sick sinus syndrome, history of coronary artery disease, hypothyroidism, cataracts, chronic anemia, chronic kidney disease, history of insertion of a biventricular dual-chamber AICD, paroxysmal atrial fibrillation, chronic anemia, hypertension Last Myocardial Infarction Date:: 06/24/15 History of Any Multi-Drug Resistant Organisms: C-DIFF, MRSA Date of last positivie culture/infection: 2015 MDRO Source:: sacral wound Past Surgical History: Heart Catheterization With Stent, Orthopedic Surgery, Pacemaker Additional Past Surgical History / Comment(s): 1996 L shoulder rotator cuff surgery, colonoscopy with benign polypectomy.heart stent x1, sacral wound debridement with wound vac in 09/2015 Past Anesthesia/Blood Transfusion Reactions: No Reported Reaction Additional Past Anesthesia/Blood Transfusion Reaction / Comment(s): Pt has never received blood. Date of Last Stent Placement:: 06/2015 Type of Cardiac Device: Permanent Pacemaker Device Placement Date:: 11/25/2016 Past Psychological History: No Psychological Hx Reported Smoking Status: Former smoker Past Alcohol Use History: None Reported Past Drug Use History: None Reported - Past Family History Father Family Medical History: Cancer, Coronary Artery Disease (CAD), Myocardial Infarction (NM) Additional Family Medical History / Comment(s): Father at age 86yrs. He had a CABG. Bladder cancer. Mother Family Medical History: Cancer Additional Family Medical History / Comment(s): Mother in her 30's of breast cancer. Medications and Allergies Home Medications Medication Instructions Recorded Confirmed Type Multivitamins, Thera [Multivitamin 1 tab PO HS 06/24/15 05/20/19 History (formulary)] Aspirin 81 mg PO DAILY 09/04/15 05/20/19 History Atorvastatin [Lipitor] 40 mg PO HS tab 09/22/15 05/20/19 Rx Clopidogrel [Plavix] 75 mg PO DAILY tab 09/22/15 05/20/19 Rx Budesonide/Formoterol Fumarate 2 puff INHALATION RT-BID 09/29/15 05/20/19 History [Symbicort 160-4.5 Mcg Inhaler] Ferrous Sulfate [Iron (65 MG 325 mg PO BID 10/04/15 05/20/19 History Elemental)] Ipratropium-Albuterol Nebulize 3 ml INHALATION RT-QID PRN 10/29/16 05/20/19 History [Duoneb 0.5 mg-3 mg/3 ml Soln] Pantoprazole [Protonix] 40 mg PO DAILY 10/29/16 05/20/19 History Docusate [Colace] 100 mg PO HS 12/13/17 05/20/19 History Folic Acid 0.8 mg PO HS 12/13/17 05/20/19 History Metoprolol Tartrate [Lopressor] 25 mg PO BID 12/13/17 05/20/19 History Albuterol Inhaler [Ventolin Hfa 1 - 2 puff INHALATION RT-Q6H PRN 02/16/19 05/20/19 History Inhaler] Allopurinol [Zyloprim] 100 mg PO HS 02/16/19 05/20/19 History Cyanocobalamin (Vitamin B-12) 1,000 mcg PO DAILY 02/16/19 05/20/19 History [Vitamin B-12] L.acidoph,Paracasei, B.lactis 1 cap PO HS 02/16/19 05/20/19 History [Probiotic] Cholecalciferol [Vitamin D3 (25 1,000 unit PO HS 02/20/19 05/20/19 History Mcg = 1000 Iu)] Levothyroxine Sodium [Synthroid] 175 mcg PO DAILY 02/20/19 05/20/19 History Amiodarone [Cordarone] 200 mg PO DAILY #30 tab 02/22/19 05/20/19 Rx Zolpidem [Ambien] 5 mg PO HS PRN #30 tab 04/25/19 05/20/19 Rx Furosemide [Lasix] 40 mg PO DAILY tab 05/08/19 05/20/19 Rx Allergies Allergy/AdvReac Type Severity Reaction Status Date / Time haloperidol [From Haldol] AdvReac Confusion Verified 05/20/19 07:23 Physical Exam Vitals: Vital Signs Temp Pulse Pulse Resp BP BP Pulse Ox 05/21/19 03:30 98.5 F 72 18 118/58 96 05/20/19 23:45 98.2 F 72 18 116/53 93 L 05/20/19 22:32 82 05/20/19 22:28 78 05/20/19 20:00 98.4 F 80 18 98/56 94 L 05/20/19 19:09 84 05/20/19 19:02 78 05/20/19 17:00 98.6 F 75 20 120/60 96 05/20/19 16:34 98.2 F 67 18 117/80 98 05/20/19 16:00 98.0 F 68 20 114/71 05/20/19 15:36 70 05/20/19 15:23 73 94 L 05/20/19 15:00 70 16 118/78 05/20/19 14:00 73 20 114/71 05/20/19 13:00 68 17 114/71 05/20/19 12:47 98.3 F 69 18 114/71 96 05/20/19 12:00 90 20 114/64 05/20/19 11:17 86 16 114/64 97 05/20/19 11:01 80 05/20/19 11:00 84 16 05/20/19 10:45 84 05/20/19 10:00 86 18 122/68 05/20/19 09:17 76 16 122/68 99 05/20/19 09:00 79 19 105/62 Intake and Output 05/20/19 05/21/19 05/21/19 22:59 06:59 14:59 Intake Total 0 Output Total 800 150 Balance -800 -150 Intake: Oral 0 Output: Urine 800 150 PHYSICAL EXAMINATION: GENERAL: 68-year-old gentleman in no acute distress at the time of my examination HEENT: Head is atraumatic, normocephalic. Pupils equal, round. Sclera anicteric. Conjunctiva are clear. Mucous membranes of the mouth are moist. Neck is supple. There is elevated jugular venous pressure. No carotid bruit is heard. HEART EXAMINATION: Heart S1 S2 1 systolic murmur is heard CHEST EXAMINATION: lungs reveal decreased air exchange, fine expiratory wheezes and diminished air entry to the bases bilaterally. ABDOMEN: Soft, nontender. Bowel sounds are heard. No organomegaly noted. EXTREMITIES: 2+ peripheral pulses with trace evidence of peripheral edema, right leg greater than left. NEUROLOGIC patient is awake, alert and oriented 3 . Results 05/20/19 05:45 05/21/19 06:31 Cardiac Enzymes 05/20/19 Range/Units 11:38 Troponin I 0.047 H* (0.000-0.034) ng/mL Comprehensive Metabolic Panel 05/21/19 Range/Units 06:31 Creatinine 1.80 H (0.66-1.25) mg/dL Current Medications Generic Name Dose Route Start Last Admin Trade Name Freq PRN Reason Stop Dose Admin Acetazolamide 250 mg 05/20/19 21:00 05/20/19 20:53 Diamox PO 250 mg BID FLORES Administration Albuterol/Ipratropium 3 ml 05/20/19 09:46 05/20/19 22:31 Duoneb 0.5 Mg-3 Mg/3 Ml Soln INHALATION 3 ml RT-QID PRN Administration Dyspnea Albuterol/Ipratropium 3 ml 05/21/19 08:00 Duoneb 0.5 Mg-3 Mg/3 Ml Soln INHALATION RT-QID FLORES Allopurinol 100 mg 05/20/19 21:00 05/20/19 20:06 Zyloprim PO 100 mg HS FLORES Administration Amiodarone HCl 200 mg 05/20/19 11:21 05/20/19 11:29 Cordarone PO 200 mg DAILY FLORES Administration Aspirin 81 mg 05/20/19 11:22 05/20/19 11:29 Aspirin PO 81 mg DAILY FLORES Administration Atorvastatin Calcium 40 mg 05/20/19 21:00 05/20/19 20:06 Lipitor PO 40 mg HS FLORES Administration Budesonide/Formoterol Fumarate 2 puff 05/20/19 20:00 05/20/19 18:58 Symbicort 160-4.5 Mcg Inhaler INHALATION 2 puff RT-BID FLORES Administration Cholecalciferol 1,000 unit 05/20/19 21:00 05/20/19 20:06 Vitamin D3 (25 Mcg = 1000 Iu) PO 1,000 unit HS FLORES Administration Clopidogrel Bisulfate 75 mg 05/20/19 11:22 05/20/19 11:29 Plavix PO 75 mg DAILY FLORES Administration Cyanocobalamin 1,000 mcg 05/20/19 11:23 05/20/19 12:12 Vitamin B-12 PO 1,000 mcg DAILY FLORES Administration Docusate Sodium 100 mg 05/20/19 21:00 05/20/19 20:06 Colace PO 100 mg HS FLORES Administration Folic Acid 1 mg 05/20/19 21:00 05/20/19 20:06 Folic Acid PO 1 mg HS FLORES Administration Furosemide 40 mg 05/20/19 21:00 05/20/19 20:06 Lasix IV 40 mg Q12HR FLORES Administration Sodium Chloride 500 mls @ 20 mls/hr 05/20/19 06:45 05/20/19 07:02 Saline 0.9% IV 50 mls/hr .Q24H FLORES Administration Piperacillin Sod/Tazobactam 100 mls @ 25 mls/hr 05/20/19 16:00 05/20/19 23:56 Sod 3.375 gm/ Sodium Chloride IVPB 25 mls/hr Q8HR FLORES Administration Insulin Aspart 0 unit 05/21/19 07:30 05/21/19 06:24 Novolog SQ 6 unit ACHS FLORES Administration Protocol Lactobacillus Acidoph/Bulgaricus 1 each 05/20/19 21:00 05/20/19 20:06 Lactinex PO 1 each HS FLORES Administration Levofloxacin 500 mg 05/20/19 13:00 05/20/19 14:49 Levaquin PO 500 mg Q24H FLORES Administration Levothyroxine Sodium 100 mcg 05/20/19 11:32 05/21/19 06:24 Synthroid PO 100 mcg DAILY@0630 FLORES Administration Levothyroxine Sodium 75 mcg 05/20/19 11:33 05/21/19 06:24 Synthroid PO 75 mcg DAILY@0630 FLORES Administration Methylprednisolone Sodium Succinate 40 mg 05/20/19 16:00 05/20/19 23:57 Solu-Medrol IV 40 mg Q8HR FLORES Administration Metoprolol Tartrate 25 mg 05/20/19 11:52 05/20/19 20:06 Lopressor PO 25 mg BID FLORES Administration Multivitamins 1 each 05/20/19 21:00 05/20/19 20:06 Theragran PO 1 each HS FLORES Administration Naloxone HCl 0.2 mg 05/20/19 07:09 Narcan IV Q2M PRN Opioid Reversal Pantoprazole Sodium 40 mg 05/20/19 11:30 05/21/19 06:34 Protonix PO 40 mg [id number] FLORES Administration Intake and Output 05/20/19 05/21/19 05/21/19 22:59 06:59 14:59 Intake Total 0 Output Total 800 150 Balance -800 -150 Intake: Oral 0 Output: Urine 800 150 05/20/19 05:45 05/21/19 06:31 EKG Interpretations (text) EKG shows a normal sinus rhythm with first-degree AV block and right bundle branch block pattern. Assessment and Plan Plan: Assessment and plan #1 shortness of breath with combination of systolic congestive heart failure acute on chronic and COPD exacerbation #2 ischemic cardio myopathy with prior AICD implantation #3 coronary artery disease with prior left main stenting #4 COPD #5 hypertension #6 chronic kidney disease #7 hyperlipidemia #8 hypothyroidism #9 paroxysmal atrial fibrillation #10 chronic anemia #11 nicotine dependence Plan The patient had an echocardiogram with Doppler study performed last month which revealed an ejection fraction of 30-35%, moderate mitral regurgitation, moderate pulmonary hypertension. We will not repeat an echo on this admission. We will continue to diurese the patient , start IV Lasix gtt. Continue to monitor intake and output along with daily weights and daily lytes BUN and creatinine. We will add Entresto to the patient's medication regime. Suggest right and left heart catheterization next week. Also recommend patient to be referred to the advanced heart failure clinic at [facility] for possible LVAD. Other recommendations to follow. DNP note has been reviewed, I agree with a documented findings and plan of care. Patient was seen and examined.
[2019-05-21] MEDS ORDERED: CYANOCOBALAMIN 500 MCG TAB PO SCH (09:00)
[2019-05-21] MEDS ORDERED: AMIODARONE 200 MG TAB PO SCH (09:00)
[2019-05-21] MEDS ORDERED: ASPIRIN 81 MG PO SCH (09:00)
[2019-05-21] MEDS ORDERED: CLOPIDOGREL 75 MG TAB PO SCH (09:00)
[2019-05-21] MEDS ORDERED: FUROSEMIDE 40 MG TAB PO SCH (09:00)
[2019-05-21 09:40] LABS: Potassium 4.2 mmol/L (3.5-5.1)
[2019-05-21] MEDS: SACUBITRIL/VALSARTAN 24 MG-26 MG TABLET PO SCH ×2 (10:19→20:36)
[2019-05-21] MEDS: SODIUM CHLORIDE 0.9% 500 ML 500 ML IV SCH (10:22)
[2019-05-21] MEDS ORDERED: METOPROLOL TARTRATE 25 MG TAB PO SCH (11:31)
[2019-05-21] MEDS: SPIRONOLACTONE 25 MG TAB PO SCH (11:40)
[2019-05-21] MEDS: FUROSEMIDE 100 MG in SODIUM CHLORIDE 0.9% 90 ML IV SCH ×2 (11:40→20:37)
[2019-05-21 12:08] LABS: Glucose,Whole Blood 145 mg/dL (75-99)
[2019-05-21] MEDS: LEVOFLOXACIN 500 MG TAB PO SCH (12:42)
[2019-05-21] MEDS ORDERED: LEVOFLOXACIN 250 MG TAB PO SCH (13:00)
--- NOTE | 2019-05-21 13:05 | P.PN ---
Subjective Progress Note Date: 05/21/19 Principal diagnosis: Dyspnea This is a 69-year-old white male patient with history of chronic congestive heart failure with systolic dysfunction and baseline ejection fraction of 30%, sick sinus syndrome status post dual-chamber AICD implantation, severe stage IV COPD with a baseline FEV1 of 22% of predicted on home oxygen, hypertension, myocardial infarction, coronary artery disease with previous stenting, chronic kidney disease, hypothyroidism, paroxysmal atrial fibrillation, chronic anemia, and former history of smoking was recently hospitalized for acute exacerbation o f CHF and discharged home in stable condition on 05/08/2019. Following discharge patient does feel better however last week he started getting increasingly more dyspneic, but he denies any chest pain, he denies any significant weight increase or lower extremity edema, she denied any fever or chills, denied any palpitations. Did see Dr. Hou in follow-up a week ago on , and chest x-ray was taken patient was told that he still has a fluid on his lungs, and to increase his dose of Lasix to 40 mg twice daily. Patient did feel better for a day, however he only increased his dose of Lasix for 1 day, and he started becoming more dyspneic and came into the hospital for evaluation. He did see Dr. Lindo yesterday on 05/19/2019 and underwent a stress test the results of which are unknown to us at this time. Chest x-ray was completed today showing increasing interstitial prominence, cyst and small right pleural effusion, and slightly more prominent focal right basilar acute infiltrates with the possibility of infectious process in addition to CHF. Patient was given a dose of cefepime, Levaquin and vancomycin, he was given a one dose of IV Lasix, and restarted on his home dose Lasix. And this consultation was initiated for evaluation of his dyspnea On 05/21/2019 patient seen in follow-up on selective care unit. He states his breathing is much improved since yesterday, he continues on IV Lasix at 40 mg and he is in -1550 ML fluid balance. Cardiology is following, and is planning on initiating Lasix drip. Follow-up chest x-ray is pending, vital signs are stable, no fever or chills, early on 4 L of oxygen with a pulse ox of 98%. Blood and sputum cultures are pending, sputum Gram stain showed rare gram- positive cocci, rare gram-positive bacilli and rare budding yeast. he is covered with empiric antibiotics, pro-calcitonin level came back low at 0.15, doubt underlying infection, will await the results of the final cultures. Continue the antibiotics for now. No complaints of chest pain Objective - Vital Signs Vital signs: Vital Signs Temp 97.9 F 05/21/19 11:47 Pulse 84 05/21/19 12:14 Resp 18 05/21/19 11:47 BP 112/65 05/21/19 11:47 Pulse Ox 98 05/21/19 11:47 Intake & Output 05/20/19 05/21/19 05/21/19 18:59 06:59 18:59 Intake Total 0 240 Output Total 1400 150 Balance -1400 -150 240 Intake: Oral 0 240 Output: Urine 1400 150 Other: # Voids 3 - Exam GENERAL EXAM: Alert, extremely pleasant 69-year-old white male, on 4 L of oxygen with a pulse ox of 97%, comfortable in no apparent distress. HEAD: Normocephalic/atraumatic. EYES: Normal reaction of pupils, equal size. Conjunctiva pink, sclera white. NOSE: Clear with pink turbinates. THROAT: No erythema or exudates. NECK: No masses, no JVD, no thyroid enlargement, no adenopathy. CHEST: No chest wall deformity. Symmetrical expansion. LUNGS: Equal air entry with bibasilar crackles, diminished breath sounds bilaterally at the bases, but no significant wheezing or rhonchi CVS: Regular rate and rhythm, normal S1 and S2, no gallops, no murmurs, no rubs ABDOMEN: Soft, nontender. No hepatosplenomegaly, normal bowel sounds, no guar ding or rigidity. EXTREMITIES: No clubbing, no edema, no cyanosis, 2+ pulses and upper and lower extremities. MUSCULOSKELETAL: Muscle strength and tone normal. SPINE: No scoliosis or deformity SKIN: No rashes CENTRAL NERVOUS SYSTEM: Alert and oriented -3. No focal deficits, tone is normal in all 4 extremities. PSYCHIATRIC: Alert and oriented -3. Appropriate affect. Intact judgment and insight. - Labs CBC & Chem 7: 05/20/19 05:45 05/21/19 06:31 Labs: Abnormal Lab Results - Last 24 Hours (Table) 05/20/19 05/20/19 05/20/19 Range/Units 05:45 11:38 11:38 Sodium (137-145) mmol/L Chloride (98-107) mmol/L Carbon Dioxide (22-30) mmol/L BUN (9-20) mg/dL Creatinine (0.66-1.25) mg/dL Glucose (74-99) mg/dL POC Glucose (mg/dL) (75-99) mg/dL Osmolality 277 L (280-301) mosm/kg Troponin I 0.047 H* (0.000-0.034) ng/mL Procalcitonin 0.15 H (0.02-0.09) ng/mL 05/20/19 05/21/19 05/21/19 Range/Units 21:03 06:11 06:31 Sodium (137-145) mmol/L Chloride (98-107) mmol/L Carbon Dioxide (22-30) mmol/L BUN (9-20) mg/dL Creatinine 1.80 H (0.66-1.25) mg/dL Glucose (74-99) mg/dL POC Glucose (mg/dL) 193 H 206 H (75-99) mg/dL Osmolality (280-301) mosm/kg Troponin I (0.000-0.034) ng/mL Procalcitonin (0.02-0.09) ng/mL 05/21/19 05/21/19 Range/Units 06:31 11:41 Sodium 132 L (137-145) mmol/L Chloride 81 L (98-107) mmol/L Carbon Dioxide 37 H (22-30) mmol/L BUN 33 H (9-20) mg/dL Creatinine 1.80 H (0.66-1.25) mg/dL Glucose 151 H (74-99) mg/dL POC Glucose (mg/dL) 145 H (75-99) mg/dL Osmolality (280-301) mosm/kg Troponin I (0.000-0.034) ng/mL Procalcitonin (0.02-0.09) ng/mL Microbiology - Last 24 Hours (Table) 05/20/19 07:13 Blood Culture - Preliminary Blood No Growth after 24 hours 05/20/19 19:15 Gram Stain - Preliminary Sputum Sputum Culture - Preliminary Assessment and Plan Plan: Assessment: #1. Acute dyspnea related to acute exacerbation of chronic congestive heart failure with systolic dysfunction and EF of 30-35% #2. Chronic kidney disease, stage III at baseline #3. Admission for acute CHF #4. Hyponatremia likely hypercholesterolemia, related to acute CHF #5. Recent history of acute kidney injury, cardiorenal in nature, recovering #6. Metabolic alkalosis likely secondary to diuresis #7. Chronic anemia #8. Ischemic cardiomyopathy with ejection fraction of 30-35% #9. Severe COPD with FEV1 of 22% of predicted on home oxygen #10. Sick sinus syndrome status post dual ICD placement in 2017 #11. Paroxysmal atrial fibrillation Plan: Follow-up chest x-ray is pending, clinical patient is feeling better, breathing easier, Procalcitonin level is low. We'll continue with antibiotic's will await the final results of the sputum and blood cultures, if those are negative will stop antibiotics. No fever or chills, cardiology is following and plan initiating the patient on Entresto, and the possibility of heart catheterization possibly next week by Dr. Lindo. We'll continue with IV steroids, diuretics, nebulized bronchodilators. I performed a history & physical examination of the patient and discussed their management with my nurse practitioner, Eliz Barnard. I reviewed the nurse practitioner's note and agree with the documented findings and plan of care. Lung sounds are positive for a few bibasilar crackles. The findings and the impression was discussed with the patient. I attest to the documentation by the nurse practitioner. Time with Patient: Less than 30
--- NOTE | 2019-05-21 13:33 | CDI ---
Documentation Clarification Form Date: 05/21/2019 1:01:25 PM From: Angie Villar RN CCDS Admit Date: 05/20/2019 7:10:00 AM Patient Name: Rogers Mota Visit Number: [id number] Discharge Date: ATTENTION: The Clinical Documentation Specialists (CDI) and [facility] Coding Staff appreciate your assistance in clarifying documentation. Please respond to the clarification below the line at the bottom and electronically sign. The CDI & [facility] Coding staff will review the response and follow-up if needed. Please note: Queries are made part of the Legal Health Record. If you have any questions, please contact the author of this message via ITS. Dr. Ermias Khalil The patient presented with shortness of breath. History/Risk Factors: 69 year old male with a medical history of Severe Stage IV COPD baseline FEV1 of 22% predicted on home oxygen, CHF , CKD, Tobacco use: history of Home oxygen: per ED note on home oxygen at 2L Clinical Indicators: Vital signs: on admission 05/20/2019 115/58 75 97.9 26 91% ra Vital signs 05/20 7am 122 /74 78 20 98% 4L nasal cannula Lung/Breathing assessment: equal air entry with bibasilar crackles, diminished breath sounds bilaterally at the bases, but no significant wheezing or rhonchi Treatment: Breathing tx -Albuterol, Solumedrol O2 4L nasal cannula In your professional opinion, can you please clarify if these findings signify one of the following conditions? * Acute on Chronic Respiratory Failure (further specify (if known)): With hypercapnia? (pCO2 >50 and pH <7.35) With hypoxia? (pO2 <60 mm Hg or SpO2 <91% on room air) * Chronic Respiratory Failure * Other Diagnosis, please specify * Unable to determine (Last Revision: December 2017) MTDD
[2019-05-21] MEDS ORDERED: ALPRAZolam 0.25 MG TAB PO PRN (14:21)
[2019-05-21] MEDS ORDERED: NITROGLYCERIN SL TABS 0.4 MG TAB SUBLINGUAL PRN (14:21)
[2019-05-21] MEDS ORDERED: ALPRAZolam 0.5 MG TAB PO PRN (14:21)
[2019-05-21] MEDS ORDERED: SODIUM CHLORIDE 0.9% 1,000 ML in EMPTY BAG 1 BAG IV ONE (14:21)
[2019-05-21 16:55] LABS: Glucose,Whole Blood 370 mg/dL (75-99)
--- NOTE | 2019-05-21 16:59 | XR ---
EXAMINATION TYPE: XR chest 1V portable DATE OF EXAM: 05/21/2019 CLINICAL HISTORY: Difficulty breathing progress study. CHF and pneumonia TECHNIQUE: Single AP portable frontal view of the chest is obtained. COMPARISON: Chest x-ray from one day earlier and older studies. FINDINGS: There is cardiomegaly with dual lead pacemaker/AICD. There is chronic parenchymal change b ilaterally with small right pleural effusion and patchy bibasilar opacities on current study. Osseous structures are demineralized. IMPRESSION: Background chronic parenchymal change in cardiomegaly with mild interstitial edema and sm all right pleural effusion are redemonstrated. Slightly more prominent bilateral acute atelectasis an d/or infiltrate is noted on current exam versus most recent prior.
--- NOTE | 2019-05-21 17:17 | PN ---
PROGRESS NOTE Patient is seen for followup for chronic kidney disease. He was admitted to the hospital with shortness of breath, recurrent heart failure. Patient is currently maintained on Lasix. He has CKD with baseline creatinine about 1.5 to 1.6 mg/dL. In view of repeated admissions for CHF exacerbation, there was concern for possible underlying ischemia and there was consideration for possible cardiac catheterization. On examination this morning, patient is comfortable. He is not in any acute distress. Blood pressure was 112/65, heart rate of 80 per minute. He is afebrile. EXAMINATION OF THE HEART: S1 and S2. EXAMINATION OF LUNGS: Bilateral breath sounds are heard. Decreased breath sounds at bases. No crackles or wheezing is heard. ABDOMEN: Soft, non-tender. Examination of lower extremities shows trace edema bilaterally. [employer]SEM[employer]ER exam is grossly intact. Labs show sodium 132, potassium 4.2, BUN 33, serum creatinine 1.8. ASSESSMENT: 1. Acute kidney injury, mainly cardiorenal and secondary to hypotension and hypoperfusion. Renal function is fairly stable. May continue with the current dose of IV Lasix. 2. Metabolic alkalosis secondary to diuresis, currently improved with Diamox. 3. Recurrent congestive heart failure. Repeated admissions for CHF exacerbation. Being followed by Cardiology and being considered for cardiac catheterization to rule out underlying ischemia. 4. Hypervolemic hyponatremia, improved with diuresis. 5. Chronic kidney disease secondary to nephrosclerosis, stage III, baseline creatinine 1.5 to 1.6 mg/dL. 6. Cardiomyopathy; ejection fraction about 30%. 7. Anemia. No active bleeding noted. Iron saturation was 10% on last admission. Patient did receive IV iron. It will be re-ordered this admission. PLAN: Continue with IV Lasix. Repeat iron profile. MMODL / IJN: [id number] /
[2019-05-21 17:57] LABS: Iron Saturation 8.94 (15.00-50.00)
[2019-05-21 20:28] LABS: Glucose,Whole Blood 107 mg/dL (75-99)
[2019-05-21] MEDS: DOCUSATE 100 MG CAP PO SCH (20:36)
[2019-05-21] MEDS: ATORVASTATIN 40 MG TAB PO SCH (20:36)
[2019-05-21] MEDS: FOLIC ACID 1 MG TAB PO SCH (20:36)
[2019-05-21] MEDS: ALLOPURINOL 100 MG TAB PO SCH (20:36)
[2019-05-21] MEDS: LACTOBACILLUS ACIDOPH & BULGAR 1 EACH PACKET PO SCH (20:36)
[2019-05-21] MEDS: MULTIVITAMINS, THERA 1 EACH TAB PO SCH (20:36)
[2019-05-21] MEDS: CHOLECALCIFEROL 1,000 UNIT TAB PO SCH (20:36)
--- NOTE | 2019-05-21 21:51 | P.PN ---
Subjective Progress Note Date: 05/21/19 Dictated on 05/21/2019 dictation # [id number] Objective - Vital Signs Vital signs: Vital Signs Temp 98.3 F 05/21/19 19:40 Pulse 80 05/21/19 20:14 Resp 18 05/21/19 20:00 BP 94/59 05/21/19 19:40 Pulse Ox 93 L 05/21/19 19:40 Intake & Output 05/21/19 05/21/19 05/22/19 06:59 18:59 06:59 Intake Total 0 960 311.5 Output Total 150 450 Balance -150 510 311.5 Weight 61.235 kg Intake: Intake, IV Titration 89.5 Amount Furosemide 100 mg In 89.5 Sodium Chloride 0.9% 90 ml @ 10 MG/HR 10 mls/hr IV .Q10H [facility] Rx#: [id number] Oral 0 960 222 Output: Urine 150 450 - Labs CBC & Chem 7: 05/20/19 05:45 05/21/19 06:31 Labs: Abnormal Lab Results - Last 24 Hours (Table) 05/21/19 05/21/19 05/21/19 Range/Units 06:11 06:31 06:31 Sodium (137-145) mmol/L Chloride (98-107) mmol/L Carbon Dioxide (22-30) mmol/L BUN (9-20) mg/dL Creatinine 1.80 H (0.66-1.25) mg/dL Glucose (74-99) mg/dL POC Glucose (mg/dL) 206 H (75-99) mg/dL Iron 22 L (65-175) ug/dL Iron Saturation 8.94 L (15.00-50.00) 05/21/19 05/21/19 05/21/19 Range/Units 06:31 11:41 16:42 Sodium 132 L (137-145) mmol/L Chloride 81 L (98-107) mmol/L Carbon Dioxide 37 H (22-30) mmol/L BUN 33 H (9-20) mg/dL Creatinine 1.80 H (0.66-1.25) mg/dL Glucose 151 H (74-99) mg/dL POC Glucose (mg/dL) 145 H 370 H (75-99) mg/dL Iron (65-175) ug/dL Iron Saturation (15.00-50.00) 05/21/19 Range/Units 20:27 Sodium (137-145) mmol/L Chloride (98-107) mmol/L Carbon Dioxide (22-30) mmol/L BUN (9-20) mg/dL Creatinine (0.66-1.25) mg/dL Glucose (74-99) mg/dL POC Glucose (mg/dL) 107 H (75-99) mg/dL Iron (65-175) ug/dL Iron Saturation (15.00-50.00) Microbiology - Last 24 Hours (Table) 05/20/19 07:13 Blood Culture - Preliminary Blood No Growth after 24 hours 05/20/19 19:15 Gram Stain - Preliminary Sputum Sputum Culture - Preliminary
[2019-05-21] MEDS: IPRATROPIUM-ALBUTEROL 3 ML NEB INHALATION PRN (23:55)
[2019-05-22 06:21] LABS: Glucose,Whole Blood 156 mg/dL (75-99)
[2019-05-22] MEDS: FUROSEMIDE 100 MG in SODIUM CHLORIDE 0.9% 90 ML IV SCH ×2 (06:26→18:09)
[2019-05-22] MEDS: LEVOTHYROXINE 75 MCG TAB PO SCH (06:27)
[2019-05-22] MEDS: LEVOTHYROXINE 100 MCG TAB PO SCH (06:27)
[2019-05-22] MEDS: PANTOPRAZOLE 40 MG TABLET PO SCH ×2 (06:27→06:30)
[2019-05-22] MEDS: INSULIN ASPART (NovoLOG) 100 UNIT/ML VIAL SQ SCH ×4 (06:28→20:30)
[2019-05-22 06:40] LABS: Anisocytosis Slight; Basophils % (A) 0 %; Eosinophils % (A) 0 %; HGB 7.5 gm/dL (13.0-17.5); Hypochromasia Marked; Lymphocytes # (A) 0.2 k/uL (1.0-4.8); Lymphocytes % (A) 3 %; MCH 31.7 pg (25.0-35.0); MCHC 29.9 g/dL (31.0-37.0); Macrocytosis Marked; Monocytes # (A) 0.3 k/uL (0-1.0); Monocytes % (A) 4 %; Neutrophils # (A) 6.6 k/uL (1.3-7.7); Neutrophils % (A) 91 %; Platelet Count 176 k/uL (150-450); RBC 2.36 m/uL (4.30-5.90); RDW 17.2 % (11.5-15.5); WBC 7.2 k/uL (3.8-10.6)
[2019-05-22 06:55] LABS: Calcium 8.7 mg/dL (8.4-10.2); Potassium 3.8 mmol/L (3.5-5.1)
[2019-05-22 07:12] LABS: Poikilocytosis (M) Present
--- NOTE | 2019-05-22 07:46 | XR ---
EXAMINATION TYPE: XR chest 1V portable DATE OF EXAM: 05/22/2019 HISTORY: chf. REFERENCE: Previous study dated 05/21/2019. FINDINGS: A bipolar pacemaker is in place on the left. The heart is mildly enlarged. There is bibasilar airspace disease. I suspect tiny effusions. The over all appearance may have worsened slightly. IMPRESSION: WORSENING BIBASILAR PNEUMONIA.
[2019-05-22] MEDS: SYMBICORT 160-4.5 MCG INHALER INHALATION SCH ×2 (08:36→19:43)
[2019-05-22] MEDS: IPRATROPIUM-ALBUTEROL 3 ML NEB INHALATION SCH ×4 (08:36→19:43)
--- NOTE | 2019-05-22 08:57 | PN ---
PROGRESS NOTE The patient is seen today and evaluated on May 21, 2019. HISTORY OF PRESENT ILLNESS: The patient and his at bedside, discussed with them the current plan. Also Dr. Kyle came at the time of the discussion and she is a professional driver. The patient stated that he is feeling improved a little bit and his shortness of breath able to improve. He also discussed this with Dr. Hollis this morning and his discussed it with Dr. Hollis, As I did discuss with them yesterday in detail, the end of life and hospice as well as the palliative care and today they discussed it with Dr. Hollis, cardiology, and he told him that he will try different approach and he will try to do between medication and infusion of dobutamine or dopamine for improving his ejection fraction as well with the recurrence of congestive heart failure, acute on the top of chronic systolic in nature, as well as he has ischemic cardiomyopathy added to pulmonary hypertension and COPD and emphysema, which is acute. He has acute respiratory failure on the top of chronic added to his chronic kidney disease with the history of when he becomes decompensated, his renal function appears to be good and when diuresed and starts to improve his renal function is deteriorated with the diuresis and as the patient was admitted with the laboratory indicating that on admission his BUN and creatinine was indicating that he has creatinine 1.53 with the BUN 35. However, at that time that he was severely short of breath with rales on almost mid 2/3 to middle of his lung johnson and with the interstitial edema as well as hyponatremia and hypercarbia with carbon dioxide 43 and, of course, at the same time his serum osmolarity on May 20 was 277 which is lower due to the volume expansion. His lactic acid was normal. His magnesium was 2.4, was high at that time, and his troponin was elevated at 0.049 and today his troponin is almost the same 0.047 and his procalcitonin is high at 0.15 with the underlying the x-ray was atelectasis versus underlying infiltrate and the found procalcitonin is elevated in the favor of possible infiltrate and he continued the current antibiotic by Pulmonary which changed to Zosyn as well for the antibiotic. He had random serum urine osmolality was 274, and also he had a urine sodium of 18. His blood sugar yesterday was elevated and his sodium was yesterday 129, now is 132, which improved with the Lasix loop diuretic. His potassium 4.2, his chloride 81, his carbon dioxide is 37, and apparently Dr. Kyle placed him on Diamox and his creatinine went up to 1.8 with a BUN of 33, which indicating with the diuresis and start to improve his renal function deteriorates and his currently estimated glomerular filtration rate for non- 38. With the aggressive diuresis probably he will go to more than 2 and will be in the stage IV. His blood sugar 151 and has been elevated with the association of apparently the medication was changed and he is currently on inhalation therapy as for the lung. He is on amiodarone as well as aspirin and atorvastatin. He is on budesonide, which is a steroid and he is as well on folic acid and Levaquin is 250 mg every 24 hours per pharmacy. He is also on prednisolone 40 mg IV every 8 hours and that has increased his blood glucose and will be adding the insulin to scale. He is also on Zosyn as well and he is currently placed on Entresto 24 mg-26 mg tablet twice a day, which is a combination of medication Sacubitril/Valsartan and he takes it twice a day and that the new medication besides that he is on spironolactone has been placed by Cardiology, spironolactone 25 mg and we will be watching his potassium as with the medication that has been inflicted of hyperkalemia in the past, but he is already on Lasix drip as well loop diuretic which has been significantly will be improving the potassium or holding it down at least besides the treatment. He has anxiety and he is on alprazolam. He has history of gout and he is on allopurinol, small dose, 100 mg; albuterol, and he is on acetazolamide, Diamox 250 mg twice a day that is carbonic anhydrase and that was applied by Dr. Kyle. I could not see that the patient started on insulin to scale. However, we will be ordering that today. Had significant discussion with the family. His vital signs today indicating temperature 98.3 orally. his pulse rate was 80 and was sinus still. His respiratory rate was 18. His blood pressure dipped down to 94/59, and the pulse ox 93 on 3 L. HEENT: The head was normocephalic and atraumatic. The pupils are equal, reactive. No evidence of asymmetry. Oropharynx, he had dentures upper plate lower natural. The uvula midline. He has mild decrease of hearing. He has no nasal drip. Neck was supple. No JVD. No thyromegaly. No lymphadenopathy. Trachea midline. The chest was increased anteroposterior diameter with history of COPD and emphysema in the past and history ex smoker of 2 packs per day for more than 30 years. The lungs was present still rales bilaterally with the inspiratory rhonchi and crackles. The heart, PMI in the 5th intercostal space outside midclavicular line. Normal S1, S2 and I could not hear the gallop, but he has history of chronic atrial fibrillation. The abdomen is soft, positive bowel sounds and no tenderness in the 4 quadrants. Extremities, he has no edema and pulses was intact. ASSESSMENT: The left-sided heart which is systolic dysfunction improvement and decreased ejection fraction with ischemic cardiomyopathy is associated with pulmonary hypertension, however, now he is on the low side of systemic hypertension that he used to be hypertensive, however, with a history of hypertensive nephrosclerosis, but currently his blood pressure is low. The culture of the blood was so far not showing any abnormalities and sputum culture was received, Gram stain was mixed cedric and had no growth of the blood culture after 24 hours so far. He was seen by Dr. Hollis this morning as well as the Cardiology, Dr. Hollis and Mireya who is nurse practitioner for [facility] who indicates that she saw him as well and she dictated note and with the underlying anemia of chronic disease. However, they did the iron and iron saturation was low, but previously we did the iron study in the last admission and his serum ferritin was extremely high. With the underlying history of the assessment underlying hypothyroidism, currently on insulin coverage to the scale only with the NovoLog to scale has been ordered, he received 6 units. 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 He had also as we discussed, some macrocytosis with the anemia and history of myelodysplastic syndrome as well. We will obtain laboratory the assessment as mentioned above and currently re-obtain laboratory tomorrow for CBC and BMP, basic metabolic profile. With these findings, but clinically he is improving and we will continue the current plan with the association of the consultation of the Nephrology as well as the Pulmonary as well as the Cardiology with the current treatment and will monitor his electrolytes as well. MMODL / IJN: [id number] /
[2019-05-22] MEDS: CLOPIDOGREL 75 MG TAB PO SCH ×2 (09:24→09:26)
[2019-05-22] MEDS: SACUBITRIL/VALSARTAN 24 MG-26 MG TABLET PO SCH (09:25)
[2019-05-22] MEDS: acetaZOLAMIDE 250 MG TAB PO SCH (09:25)
[2019-05-22] MEDS: SPIRONOLACTONE 25 MG TAB PO SCH (09:26)
[2019-05-22] MEDS: LEVOFLOXACIN 250 MG TAB PO SCH (09:26)
[2019-05-22] MEDS: CYANOCOBALAMIN 500 MCG TAB PO SCH (09:26)
[2019-05-22] MEDS: PIPERACILLIN-TAZOBACTAM 3.375 GM in SODIUM CHLORIDE 0.9% 100 ML IVPB SCH ×3 (09:27→23:24)
[2019-05-22] MEDS: ASPIRIN 81 MG PO SCH (09:27)
[2019-05-22] MEDS: methylPREDNISolone SOD SUCCI 40 MG/ML 1 ML VIAL IV SCH ×3 (09:27→23:24)
[2019-05-22] MEDS: METOPROLOL TARTRATE 25 MG TAB PO SCH ×2 (09:27→20:30)
[2019-05-22] MEDS: AMIODARONE 200 MG TAB PO SCH (09:27)
--- NOTE | 2019-05-22 09:30 | P.PN ---
Progress Note - Text Progress Note Date: 05/22/19 For documentation purposes, patient presented with acute on chronic hypoxic respiratory failure secondary to acute systolic congestive heart failure and systolic dysfunction ejection fraction is 30-35%. Patient also had acute exacerbation of severe chronic obstructive pulmonary disease. Hypercapnia was not noted.
--- NOTE | 2019-05-22 10:18 | P.PN ---
Subjective Progress Note Date: 05/22/19 Principal diagnosis: This is a 69-year-old male seen in consultation because of chronic kidney disease, an element of acute kidney injury secondary to cardiorenal syndrome and hypotension. He came in because of congestive heart failure. As of this morning he is feeling somewhat better. He was started on Reji and his blood pressure went down creatinine went up from 1.8-2.5 this morning. Additionally a chest x-ray is suggestive of worsening minimally. His congestive heart failure combination of pneumonia is not clear. Patient is on 2 L nasal cannula and is stable. He was able to walk denies any symptom of dizziness but was feeling weak and had to take his time. No nausea vomiting diarrhea abdominal pain. No chest pain. Objective - Vital Signs Vital signs: Vital Signs Temp 98.1 F 05/22/19 03:41 Pulse 68 05/22/19 08:50 Resp 16 05/22/19 08:50 BP 90/54 05/22/19 08:00 Pulse Ox 92 L 05/22/19 03:41 Intake & Output 05/21/19 05/22/19 05/22/19 18:59 06:59 18:59 Intake Total 960 409.667 240 Output Total 450 300 0 Balance 510 109.667 240 Weight 61.235 kg 62.7 kg Intake: Intake, IV Titration 187.667 Amount Furosemide 100 mg In 187.667 Sodium Chloride 0.9% 90 ml @ 10 MG/HR 10 mls/hr IV .Q10H [facility] Rx#: [id number] Oral 960 222 240 Output: Urine 450 300 0 On examination is awake alert oriented comfortable on 2 L nasal cannula. HEENT exam no JVP neck is supple no facial asymmetry Lungs are significant for an occasional coarse crackle at bases good air entry bilaterally Heart sounds are unremarkable for any murmur rub gallop Abdomen soft nontender no organomegaly status masses Extremity exam was no edema Neurologically awake alert oriented - Labs CBC & Chem 7: 05/22/19 06:18 05/22/19 06:18 Labs: Abnormal Lab Results - Last 24 Hours (Table) 05/21/19 05/21/19 05/21/19 Range/Units 06:31 11:41 16:42 RBC (4.30-5.90) m/uL Hgb (13.0-17.5) gm/dL Hct (39.0-53.0) % MCV (80.0-100.0) fL MCHC (31.0-37.0) g/dL RDW (11.5-15.5) % Lymphocytes # (1.0-4.8) k/uL Macrocytosis Sodium (137-145) mmol/L Chloride (98-107) mmol/L Carbon Dioxide (22-30) mmol/L BUN (9-20) mg/dL Creatinine (0.66-1.25) mg/dL Glucose (74-99) mg/dL POC Glucose (mg/dL) 145 H 370 H (75-99) mg/dL Iron 22 L (65-175) ug/dL Iron Saturation 8.94 L (15.00-50.00) 05/21/19 05/22/19 05/22/19 Range/Units 20:27 06:18 06:18 RBC 2.36 L (4.30-5.90) m/uL Hgb 7.5 L (13.0-17.5) gm/dL Hct 25.0 L (39.0-53.0) % MCV 106.0 H (80.0-100.0) fL MCHC 29.9 L (31.0-37.0) g/dL RDW 17.2 H (11.5-15.5) % Lymphocytes # 0.2 L (1.0-4.8) k/uL Macrocytosis Marked A Sodium 131 L (137-145) mmol/L Chloride 81 L (98-107) mmol/L Carbon Dioxide 39 H (22-30) mmol/L BUN 41 H (9-20) mg/dL Creatinine 2.54 H (0.66-1.25) mg/dL Glucose 121 H (74-99) mg/dL POC Glucose (mg/dL) 107 H (75-99) mg/dL Iron (65-175) ug/dL Iron Saturation (15.00-50.00) 05/22/19 Range/Units 06:21 RBC (4.30-5.90) m/uL Hgb (13.0-17.5) gm/dL Hct (39.0-53.0) % MCV (80.0-100.0) fL MCHC (31.0-37.0) g/dL RDW (11.5-15.5) % Lymphocytes # (1.0-4.8) k/uL Macrocytosis Sodium (137-145) mmol/L Chloride (98-107) mmol/L Carbon Dioxide (22-30) mmol/L BUN (9-20) mg/dL Creatinine (0.66-1.25) mg/dL Glucose (74-99) mg/dL POC Glucose (mg/dL) 156 H (75-99) mg/dL Iron (65-175) ug/dL Iron Saturation (15.00-50.00) Microbiology - Last 24 Hours (Table) 05/20/19 07:13 Blood Culture - Preliminary Blood No Growth after 48 hours Assessment and Plan Assessment: Impression 1. Acute kidney injury. Creatinine went up from 1.5-1.8-2.5 the cause of this is likely from hypotension. He was started on Reji yesterday. 2. 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 Baseline creatinine is about 1.5 3. Congestive heart failure 4. Metabolic alkalosis secondary to diuretics on Diamox. 5. Iron deficiency with saturation 8% 6. Anemia. Secondary to CK D, hemoglobin 7.5. 7. Mild hyponatremia sodium is 131 secondary to acute kidney injury, an element of hyperglycemia adding. Recommendation 1. Continue aggressive diuretic regimen currently on 100 mg drip 2. Would hold the Reji 3. Start IV Ferrlecit 125 mg 1 dose 4. A cardiac catheterization should be postponed until creatinine is back to baseline. It can be done if it is an urgency though. Patient is aware of the risk. We will recheck labs tomorrow and hoping the blood pressure will improve and the creatinine will improve and he will be ready by Friday hopefully
[2019-05-22] MEDS ORDERED: SODIUM FERRIC GLUCONAT-SUCROSE 125 MG in SODIUM CHLORIDE 0.9% 100 ML IVPB ONE (11:00)
--- NOTE | 2019-05-22 11:14 | P.PN ---
Subjective This is a pleasant 69-year-old male past medical history coronary artery disease status post stenting of the left main, carotid artery disease, ischemic cardiomyopathy, paroxysmal atrial fibrillation, AICD implantation, COPD and 90/54 with a heart rate of 73 afebrile maintaining oxygen saturation on nasal cannula. He continues to feel exertional shortness of breath however he states he feels much better overall. he follows in the office with Dr. Hollis. We're following secondary to an acute exacerbation of chronic systolic heart jw lure. Currently maintained on Lasix drip, Aldactone, Diamox and entresto was started yesterday. He is seen and examined sitting up at the edge of the bed with his in the room. Blood pressure this morning 90/54 heart rate of 68. Laboratory data reviewed, WBC 7.2, hemoglobin 7.5, platelets 176, sodium 131, potassium 3.8, creatinine 2.54. GENERAL: Well-appearing, well-nourished and in no acute distress. NECK: Supple without JVD or thyromegaly. LUNGS: Bibasilar rales, scattered rhonchi. No wheezes. Diminished bilaterally. Respirations equal and unlabored. HEART: Regular rate and rhythm with systolic ejection murmur at the left sternal border, no rubs or gallops. S1 and S2 heard. EXTREMITIES: Normal range of motion, 1+ bilateral lower extremity pitting edema left greater than right. No clubbing or cyanosis. Peripheral pulses intact. ASSESSMENT Acute on chronic systolic heart failure Ischemic cardiomyopathy status post AICD implantation History of coronary artery disease COPD Hypertension Chronic kidney disease Paroxysmal atrial fibrillation Chronic anemia Former nicotine dependence PLAN Hold entresto secondary to hypotension. Discontinue aldactone and diamox given significant increase in renal function. Continue Lasix infusion for diuresis. Repeat kidney function and electrolytes in the morning. Further recommendations to follow. Nurse Practitioner note has been reviewed, I agree with a documented findings and plan of care. Patient was seen and examined. Objective - Vital Signs Vital signs: Vital Signs Temp 98.1 F 05/22/19 03:41 Pulse 68 05/22/19 08:50 Resp 16 05/22/19 08:50 BP 90/54 05/22/19 08:00 Pulse Ox 92 L 05/22/19 03:41 Intake & Output 05/21/19 05/22/19 05/22/19 18:59 06:59 18:59 Intake Total 960 409.667 240 Output Total 450 300 0 Balance 510 109.667 240 Weight 61.235 kg 62.7 kg Intake: Intake, IV Titration 187.667 Amount Furosemide 100 mg In 187.667 Sodium Chloride 0.9% 90 ml @ 10 MG/HR 10 mls/hr IV .Q10H [facility] Rx#: [id number] Oral 960 222 240 Output: Urine 450 300 0 - Labs CBC & Chem 7: 05/22/19 06:18 05/22/19 06:18 Labs: Abnormal Lab Results - Last 24 Hours (Table) 05/21/19 05/21/19 05/21/19 Range/Units 06:31 11:41 16:42 RBC (4.30-5.90) m/uL Hgb (13.0-17.5) gm/dL Hct (39.0-53.0) % MCV (80.0-100.0) fL MCHC (31.0-37.0) g/dL RDW (11.5-15.5) % Lymphocytes # (1.0-4.8) k/uL Macrocytosis Sodium (137-145) mmol/L Chloride (98-107) mmol/L Carbon Dioxide (22-30) mmol/L BUN (9-20) mg/dL Creatinine (0.66-1.25) mg/dL Glucose (74-99) mg/dL POC Glucose (mg/dL) 145 H 370 H (75-99) mg/dL Iron 22 L (65-175) ug/dL Iron Saturation 8.94 L (15.00-50.00) 05/21/19 05/22/19 05/22/19 Range/Units 20:27 06:18 06:18 RBC 2.36 L (4.30-5.90) m/uL Hgb 7.5 L (13.0-17.5) gm/dL Hct 25.0 L (39.0-53.0) % MCV 106.0 H (80.0-100.0) fL MCHC 29.9 L (31.0-37.0) g/dL RDW 17.2 H (11.5-15.5) % Lymphocytes # 0.2 L (1.0-4.8) k/uL Macrocytosis Marked A Sodium 131 L (137-145) mmol/L Chloride 81 L (98-107) mmol/L Carbon Dioxide 39 H (22-30) mmol/L BUN 41 H (9-20) mg/dL Creatinine 2.54 H (0.66-1.25) mg/dL Glucose 121 H (74-99) mg/dL POC Glucose (mg/dL) 107 H (75-99) mg/dL Iron (65-175) ug/dL Iron Saturation (15.00-50.00) 05/22/19 Range/Units 06:21 RBC (4.30-5.90) m/uL Hgb (13.0-17.5) gm/dL Hct (39.0-53.0) % MCV (80.0-100.0) fL MCHC (31.0-37.0) g/dL RDW (11.5-15.5) % Lymphocytes # (1.0-4.8) k/uL Macrocytosis Sodium (137-145) mmol/L Chloride (98-107) mmol/L Carbon Dioxide (22-30) mmol/L BUN (9-20) mg/dL Creatinine (0.66-1.25) mg/dL Glucose (74-99) mg/dL POC Glucose (mg/dL) 156 H (75-99) mg/dL Iron (65-175) ug/dL Iron Saturation (15.00-50.00) Microbiology - Last 24 Hours (Table) 05/20/19 19:15 Gram Stain - Final Sputum Sputum Culture - Final Marialuisa albicans 05/20/19 07:13 Blood Culture - Preliminary Blood No Growth after 48 hours
[2019-05-22 11:40] LABS: Glucose,Whole Blood 131 mg/dL (75-99)
--- NOTE | 2019-05-22 13:46 | P.PN ---
Subjective Progress Note Date: 05/22/19 (Cardiorenal syndrome) Principal diagnosis: Diagnosis: #1 ischemic cardiomyopathy, recurrent admission. #2 congestive heart failure systolic at The Top of Chronic. #3 COPD with Exacerbation and Shortness of Breath. #4 Chronic Kidney Disease Stage III, When the Patient Congestive Heart Failure, #Acute Kidney Injury, Stage IV with the Patient Treated with Diuretics and Medication. #5 Sputum Growing Marialuisa, #6 oropharyngeal and the tongue a yeast with white spots. #7 patient on antibiotic for possibility of basilar infiltrate with the elevated pro-calcitonin, questionable pneumonitis versus congestive heart failure will wait for the pulmonary differentiation. #8 hyponatremia associated multifactorial, as well as delusional hyponatremia. Associated with his creatinine was 1.58, his baseline to to my assessment is #2. #9 hypothyroidism stable on medication. #10 generalized weakness associated with congestive heart failure chronic with cardiomyopathy and improvement of systolic function. #11 medication like interesto as well as MAT inhibitor, as well as Aldactone with the creatinine above 2 not indicated. #12 patient on Lasix infusion with the clinical improvement however worsening over his laboratory data. #13 mouth and tongue and oropharyngeal with white spots with the possibility of Marialuisa albicans secondary to decreased immune response, patient on Levaquin and Zosyn for his long and rate for the pulmonary input and of the antibiotic. This is dictation progress note date of service 05/22/2019. Dictation by Dr. Finney. Patient seen evaluated [id number] by myself and discussed with the patient and his . Patient was initially scheduled by cardiology for cardiac cath on Friday however his kidney failure was indicating laboratory of [place] I acute kidney injury with the diuresis. And Dr. randolph has a hold on the procedure because of the dye and acute kidney injury with elevated creatinine. Associated as well with hypotension, they held until Domenic medication, as well as Aldactone. With a blood pressure in the 90s systolic. Added to the ischemic cardiomyopathy. On exam: Patient is conscious alert oriented 3 Was normocephalic atraumatic he has some trouble with. Oropharynx he had no insurance. Hearing is stable no nasal discharge. Neck supple no JVD no thyromegaly no lymphadenopathy. Chest was increased anteroposterior diameter is underlying emphysema and COPD with the ex-smoker 2 pack per day or more than 30 years. The decreased air entry in the lower lung johnson with the improvement on the rales and no rhonchi. Heart was regular sinus rhythm with the underlying history of paroxysmal atrial fibrillation and he stable general condition however he had acute congestive heart failure his on the top of chronic and if his systolic in nature. And the current with very that patient to the hospital because of symptomatic shortness of breath. Abdomen soft positive bowel sounds no organ enlargement or tenderness. Extremities no shaft edema however the ankle trace edema with the sitting on the edge of the bed and otherwise was elevation of the leg Oropharynx indicating that he is white spots on the trunk and the cheeks with the possible with the continued fungal infection. On the The neurological examination is stable no lateralizing sign no tremor no shakiness however still weak to ambulate. Assessment: Plan: We'll continue with the current treatment according to the recommendation from the speciality pulmonary, nephrology, cardiology,. We will order labs for tomorrow, and we will obtain [facility] follow-up for the Marialuisa. Rate for the pulmonary to evaluate and to see if we need treatment of the Marialuisa as well as the current antibiotic the patient receiving and for that as recommendation or treatment. Discussed with the in detail. The diagnosis and plan was dictated on the top of the current dictation Objective - Vital Signs Vital signs: Vital Signs Temp 98.1 F 05/22/19 03:41 Pulse 71 05/22/19 12:21 Resp 16 05/22/19 12:21 BP 96/55 05/22/19 12:00 Pulse Ox 95 05/22/19 12:00 Intake & Output 05/21/19 05/22/19 05/22/19 18:59 06:59 18:59 Intake Total 960 409.667 480 Output Total 450 300 0 Balance 510 109.667 480 Weight 61.235 kg 62.7 kg Intake: Intake, IV Titration 187.667 Amount Furosemide 100 mg In 187.667 Sodium Chloride 0.9% 90 ml @ 10 MG/HR 10 mls/hr IV .Q10H [facility] Rx#: [id number] Oral 960 222 480 Output: Urine 450 300 0 Other: # Voids 3 - Labs CBC & Chem 7: 05/22/19 06:18 05/22/19 06:18 Labs: Abnormal Lab Results - Last 24 Hours (Table) 05/21/19 05/21/19 05/21/19 Range/Units 06:31 16:42 20:27 RBC (4.30-5.90) m/uL Hgb (13.0-17.5) gm/dL Hct (39.0-53.0) % MCV (80.0-100.0) fL MCHC (31.0-37.0) g/dL RDW (11.5-15.5) % Lymphocytes # (1.0-4.8) k/uL Macrocytosis Sodium (137-145) mmol/L Chloride (98-107) mmol/L Carbon Dioxide (22-30) mmol/L BUN (9-20) mg/dL Creatinine (0.66-1.25) mg/dL Glucose (74-99) mg/dL POC Glucose (mg/dL) 370 H 107 H (75-99) mg/dL Iron 22 L (65-175) ug/dL Iron Saturation 8.94 L (15.00-50.00) 05/22/19 05/22/19 05/22/19 Range/Units 06:18 06:18 06:21 RBC 2.36 L (4.30-5.90) m/uL Hgb 7.5 L (13.0-17.5) gm/dL Hct 25.0 L (39.0-53.0) % MCV 106.0 H (80.0-100.0) fL MCHC 29.9 L (31.0-37.0) g/dL RDW 17.2 H (11.5-15.5) % Lymphocytes # 0.2 L (1.0-4.8) k/uL Macrocytosis Marked A Sodium 131 L (137-145) mmol/L Chloride 81 L (98-107) mmol/L Carbon Dioxide 39 H (22-30) mmol/L BUN 41 H (9-20) mg/dL Creatinine 2.54 H (0.66-1.25) mg/dL Glucose 121 H (74-99) mg/dL POC Glucose (mg/dL) 156 H (75-99) mg/dL Iron (65-175) ug/dL Iron Saturation (15.00-50.00) 05/22/19 Range/Units 11:38 RBC (4.30-5.90) m/uL Hgb (13.0-17.5) gm/dL Hct (39.0-53.0) % MCV (80.0-100.0) fL MCHC (31.0-37.0) g/dL RDW (11.5-15.5) % Lymphocytes # (1.0-4.8) k/uL Macrocytosis Sodium (137-145) mmol/L Chloride (98-107) mmol/L Carbon Dioxide (22-30) mmol/L BUN (9-20) mg/dL Creatinine (0.66-1.25) mg/dL Glucose (74-99) mg/dL POC Glucose (mg/dL) 131 H (75-99) mg/dL Iron (65-175) ug/dL Iron Saturation (15.00-50.00) Microbiology - Last 24 Hours (Table) 05/20/19 19:15 Gram Stain - Final Sputum Sputum Culture - Final Marialuisa albicans 05/20/19 07:13 Blood Culture - Preliminary Blood No Growth after 48 hours
--- NOTE | 2019-05-22 13:59 | P.PN ---
Subjective Progress Note Date: 05/22/19 Principal diagnosis: Dyspnea This is a 69-year-old white male patient with history of chronic congestive heart failure with systolic dysfunction and baseline ejection fraction of 30%, sick sinus syndrome status post dual-chamber AICD implantation, severe stage IV COPD with a baseline FEV1 of 22% of predicted on home oxygen, hypertension, myocardial infarction, coronary artery disease with previous stenting, chronic kidney disease, hypothyroidism, paroxysmal atrial fibrillation, chronic anemia, and former history of smoking was recently hospitalized for acute exacerbation o f CHF and discharged home in stable condition on 05/08/2019. Following discharge patient does feel better however last week he started getting increasingly more dyspneic, but he denies any chest pain, he denies any significant weight increase or lower extremity edema, she denied any fever or chills, denied any palpitations. Did see Dr. Hou in follow-up a week ago on , and chest x-ray was taken patient was told that he still has a fluid on his lungs, and to increase his dose of Lasix to 40 mg twice daily. Patient did feel better for a day, however he only increased his dose of Lasix for 1 day, and he started becoming more dyspneic and came into the hospital for evaluation. He did see Dr. Lindo yesterday on 05/19/2019 and underwent a stress test the results of which are unknown to us at this time. Chest x-ray was completed today showing increasing interstitial prominence, cyst and small right pleural effusion, and slightly more prominent focal right basilar acute infiltrates with the possibility of infectious process in addition to CHF. Patient was given a dose of cefepime, Levaquin and vancomycin, he was given a one dose of IV Lasix, and restarted on his home dose Lasix. And this consultation was initiated for evaluation of his dyspnea On 05/21/2019 patient seen in follow-up on selective care unit. He states his breathing is much improved since yesterday, he continues on IV Lasix at 40 mg and he is in -1550 ML fluid balance. Cardiology is following, and is planning on initiating Lasix drip. Follow-up chest x-ray is pending, vital signs are stable, no fever or chills, early on 4 L of oxygen with a pulse ox of 98%. Blood and sputum cultures are pending, sputum Gram stain showed rare gram- positive cocci, rare gram-positive bacilli and rare budding yeast. he is covered with empiric antibiotics, pro-calcitonin level came back low at 0.15, doubt underlying infection, will await the results of the final cultures. Continue the antibiotics for now. No complaints of chest pain The patient is seen today 05/22/2018 in follow-up on the selective care unit. He is awake and alert in no acute distress. Less short of breath today as compared to yesterday. Taking good O2 saturations in the mid 90s on room air. He is afebrile. Hemodynamically stable. Sputum culture positive for Marialuisa only. Blood culture reveals no growth. White count 7.2. Hemoglobin 7.5. Bicarb 39. Creatinine 2.54. He remains on DuoNeb inhalations, Symbicort, IV Solu-Medrol. Medics in the form of Zosyn and Levaquin. He is on a Lasix drip at 10 mg per hour. Chest x-ray shows bibasilar pneumonia with fluid volume overload. Objective - Vital Signs Vital signs: Vital Signs Temp 98.1 F 05/22/19 03:41 Pulse 71 05/22/19 12:21 Resp 16 05/22/19 12:21 BP 96/55 05/22/19 12:00 Pulse Ox 95 05/22/19 12:00 Intake & Output 05/21/19 05/22/19 05/22/19 18:59 06:59 18:59 Intake Total 960 409.667 480 Output Total 450 300 0 Balance 510 109.667 480 Weight 61.235 kg 62.7 kg Intake: Intake, IV Titration 187.667 Amount Furosemide 100 mg In 187.667 Sodium Chloride 0.9% 90 ml @ 10 MG/HR 10 mls/hr IV .Q10H [facility] Rx#: [id number] Oral 960 222 480 Output: Urine 450 300 0 Other: # Voids 3 - Exam GENERAL EXAM: Alert, pleasant 69-year-old white male, on room air with a pulse ox of 95%, comfortable in no apparent distress. HEAD: Normocephalic/atraumatic. EYES: Normal reaction of pupils, equal size. Conjunctiva pink, sclera white. NOSE: Clear with pink turbinates. THROAT: No erythema or exudates. NECK: No masses, no JVD, no thyroid enlargement, no adenopathy. CHEST: No chest wall deformity. Symmetrical expansion. LUNGS: Equal air entry with bibasilar crackles, diminished breath sounds bilaterally at the bases, but no significant wheezing or rhonchi CVS: Regular rate and rhythm, normal S1 and S2, no gallops, no murmurs, no rubs ABDOMEN: Soft, nontender. No hepatosplenomegaly, normal bowel sounds, no guarding or rigidity. EXTREMITIES: No clubbing, no edema, no cyanosis, 2+ pulses and upper and lower extremities. MUSCULOSKELETAL: Muscle strength and tone normal. SPINE: No scoliosis or deformity SKIN: No rashes CENTRAL NERVOUS SYSTEM: No focal deficits, tone is normal in all 4 extremities. PSYCHIATRIC: Alert and oriented -3. Appropriate affect. Intact judgment and insight. - Labs CBC & Chem 7: 05/22/19 06:18 05/22/19 06:18 Labs: Abnormal Lab Results - Last 24 Hours (Table) 05/21/19 05/21/19 05/21/19 Range/Units 06:31 16:42 20:27 RBC (4.30-5.90) m/uL Hgb (13.0-17.5) gm/dL Hct (39.0-53.0) % MCV (80.0-100.0) fL MCHC (31.0-37.0) g/dL RDW (11.5-15.5) % Lymphocytes # (1.0-4.8) k/uL Macrocytosis Sodium (137-145) mmol/L Chloride (98-107) mmol/L Carbon Dioxide (22-30) mmol/L BUN (9-20) mg/dL Creatinine (0.66-1.25) mg/dL Glucose (74-99) mg/dL POC Glucose (mg/dL) 370 H 107 H (75-99) mg/dL Iron 22 L (65-175) ug/dL Iron Saturation 8.94 L (15.00-50.00) 05/22/19 05/22/19 05/22/19 Range/Units 06:18 06:18 06:21 RBC 2.36 L (4.30-5.90) m/uL Hgb 7.5 L (13.0-17.5) gm/dL Hct 25.0 L (39.0-53.0) % MCV 106.0 H (80.0-100.0) fL MCHC 29.9 L (31.0-37.0) g/dL RDW 17.2 H (11.5-15.5) % Lymphocytes # 0.2 L (1.0-4.8) k/uL Macrocytosis Marked A Sodium 131 L (137-145) mmol/L Chloride 81 L (98-107) mmol/L Carbon Dioxide 39 H (22-30) mmol/L BUN 41 H (9-20) mg/dL Creatinine 2.54 H (0.66-1.25) mg/dL Glucose 121 H (74-99) mg/dL POC Glucose (mg/dL) 156 H (75-99) mg/dL Iron (65-175) ug/dL Iron Saturation (15.00-50.00) 05/22/19 Range/Units 11:38 RBC (4.30-5.90) m/uL Hgb (13.0-17.5) gm/dL Hct (39.0-53.0) % MCV (80.0-100.0) fL MCHC (31.0-37.0) g/dL RDW (11.5-15.5) % Lymphocytes # (1.0-4.8) k/uL Macrocytosis Sodium (137-145) mmol/L Chloride (98-107) mmol/L Carbon Dioxide (22-30) mmol/L BUN (9-20) mg/dL Creatinine (0.66-1.25) mg/dL Glucose (74-99) mg/dL POC Glucose (mg/dL) 131 H (75-99) mg/dL Iron (65-175) ug/dL Iron Saturation (15.00-50.00) Microbiology - Last 24 Hours (Table) 05/20/19 19:15 Gram Stain - Final Sputum Sputum Culture - Final Marialuisa albicans 05/20/19 07:13 Blood Culture - Preliminary Blood No Growth after 48 hours Assessment and Plan Assessment: Assessment: #1. Acute dyspnea related to acute exacerbation of chronic congestive heart failure with systolic dysfunction and EF of 30-35% as well as an acute exacerbation of chronic obstructive pulmonary disease. #2. Chronic kidney disease, stage III at baseline #3. Admission for acute CHF #4. Hyponatremia likely hypercholesterolemia, related to acute CHF #5. Recent history of acute kidney injury, cardiorenal in nature, recovering #6. Metabolic alkalosis likely secondary to diuresis #7. Chronic anemia #8. Ischemic cardiomyopathy with ejection fraction of 30-35% #9. Severe COPD with FEV1 of 22% of predicted on home oxygen #10. Sick sinus syndrome status post dual ICD placement in 2017 #11. Paroxysmal atrial fibrillation Plan: The patient was seen and evaluated by Dr. Khalil. Chest x-ray and labs reviewed. He is improved today as compared to yesterday. Continue with Zosyn and Levaquin. Continue IV Solu-Medrol and bronchodilators. Currently on a Lasix drip at 10 mg per hour. Increase his activity as tolerated. We'll continue to follow and make further recommendations based on his clinical status. I, the cosigning physician, performed a history & physical examination of the patient. Lungs sounds with crackles in the bilateral posterior bases, diminished. Maintaining good O2 saturations in the 90s on room air. I discussed the assessment and plan of care with my nurse practitioner, Jennyfer Enciso. I attest to the above note as dictated by her.
[2019-05-22 17:28] LABS: Glucose,Whole Blood 131 mg/dL (75-99)
[2019-05-22] MEDS: NYSTATIN 100,000 UNIT/ML SUSP 500,000 UNIT/5 ML CUP PO SCH ×2 (17:57→20:31)
[2019-05-22] MEDS: SODIUM CHLORIDE 0.9% 500 ML 500 ML IV SCH (19:43)
[2019-05-22 20:07] LABS: Glucose,Whole Blood 142 mg/dL (75-99)
[2019-05-22 20:27] LABS: Glucose,Whole Blood 150 mg/dL (75-99)
[2019-05-22] MEDS: DOCUSATE 100 MG CAP PO SCH (20:30)
[2019-05-22] MEDS: ATORVASTATIN 40 MG TAB PO SCH (20:30)
[2019-05-22] MEDS: FOLIC ACID 1 MG TAB PO SCH (20:30)
[2019-05-22] MEDS: MULTIVITAMINS, THERA 1 EACH TAB PO SCH (20:30)
[2019-05-22] MEDS: CHOLECALCIFEROL 1,000 UNIT TAB PO SCH (20:30)
[2019-05-22] MEDS: LACTOBACILLUS ACIDOPH & BULGAR 1 EACH PACKET PO SCH (20:30)
[2019-05-22] MEDS: ALLOPURINOL 100 MG TAB PO SCH (20:30)
[2019-05-23] MEDS: IPRATROPIUM-ALBUTEROL 3 ML NEB INHALATION PRN ×2 (00:08→23:34)
[2019-05-23] MEDS: FUROSEMIDE 100 MG in SODIUM CHLORIDE 0.9% 90 ML IV SCH ×3 (05:36→22:51)
[2019-05-23 06:15] LABS: Glucose,Whole Blood 158 mg/dL (75-99)
[2019-05-23] MEDS: LEVOTHYROXINE 75 MCG TAB PO SCH (06:18)
[2019-05-23] MEDS: INSULIN ASPART (NovoLOG) 100 UNIT/ML VIAL SQ SCH ×4 (06:18→22:51)
[2019-05-23] MEDS: PANTOPRAZOLE 40 MG TABLET PO SCH (06:18)
[2019-05-23] MEDS: LEVOTHYROXINE 100 MCG TAB PO SCH (06:18)
[2019-05-23 06:51] LABS: Calcium 8.5 mg/dL (8.4-10.2); Potassium 3.7 mmol/L (3.5-5.1)
[2019-05-23] MEDS: SYMBICORT 160-4.5 MCG INHALER INHALATION SCH ×2 (08:00→19:55)
[2019-05-23] MEDS: IPRATROPIUM-ALBUTEROL 3 ML NEB INHALATION SCH ×4 (08:00→19:54)
[2019-05-23] MEDS: LEVOFLOXACIN 250 MG TAB PO SCH (08:45)
[2019-05-23] MEDS: CLOPIDOGREL 75 MG TAB PO SCH (08:46)
[2019-05-23] MEDS: CYANOCOBALAMIN 500 MCG TAB PO SCH (08:46)
[2019-05-23] MEDS: PIPERACILLIN-TAZOBACTAM 3.375 GM in SODIUM CHLORIDE 0.9% 100 ML IVPB SCH (08:47)
[2019-05-23] MEDS: ASPIRIN 81 MG PO SCH (08:47)
[2019-05-23] MEDS: methylPREDNISolone SOD SUCCI 40 MG/ML 1 ML VIAL IV SCH (08:47)
[2019-05-23] MEDS: METOPROLOL TARTRATE 25 MG TAB PO SCH ×2 (08:48→21:03)
[2019-05-23] MEDS: AMIODARONE 200 MG TAB PO SCH (08:49)
[2019-05-23] MEDS: NYSTATIN 100,000 UNIT/ML SUSP 500,000 UNIT/5 ML CUP PO SCH ×3 (08:58→16:28)
--- NOTE | 2019-05-23 10:40 | P.PN ---
Subjective This is a pleasant 69-year-old male past medical history coronary artery disease status post stenting of the left main, carotid artery disease, ischemic cardiomyopathy, paroxysmal atrial fibrillation, AICD implantation, COPD and 90/54 with a heart rate of 73 afebrile maintaining oxygen saturation on nasal cannula. He continues to feel exertional shortness of breath however he states he feels much better overall. he follows in the office with Dr. Hollis. We're following secondary to an acute exacerbation of chronic systolic heart jw lure. Currently maintained on Lasix drip, Aldactone, Diamox and entresto was started yesterday. He is seen and examined sitting up at the edge of the bed with his in the room. Blood pressure this morning 90/54 heart rate of 68. Laboratory data reviewed, WBC 7.2, hemoglobin 7.5, platelets 176, sodium 131, potassium 3.8, creatinine 2.54. 05/23/2019 Patient is seen and examined laying almost completely flat in bed with his at the bedside. He states overall his breathing seems to be improving greatly since admission. Blood pressure continues to remain low this morning 81/33 heart rate of 73. Laboratory data reviewed, sodium 1:30, potassium 3.7, creatinine 2.9. Currently maintained on a Lasix infusion with low urine output. GENERAL: Well-appearing, well-nourished and in no acute distress. NECK: Supple without JVD or thyromegaly. LUNGS: Bibasilar rales, Course scattered rhonchi throughout, faint expiratory wheeze. Diminished bilaterally. Respirations equal and unlabored. HEART: Regular rate and rhythm with systolic ejection murmur at the left sternal border, no rubs or gallops. S1 and S2 heard. EXTREMITIES: Normal range of motion, 1+ bilateral lower extremity pitting edema left greater than right. No clubbing or cyanosis. Peripheral pulses intact. ASSESSMENT Acute on chronic systolic heart failure Ischemic cardiomyopathy status post AICD implantation History of coronary artery disease COPD Hypertension Chronic kidney disease Paroxysmal atrial fibrillation Chronic anemia Former nicotine dependence PLAN We have asked the nurse to hold the Lasix infusion until nephrology comes through. Discussed with Dr. Topete he said he will see the patient this morning. Initiate on dopamine infusion for renal perfusion. Entresto has been discontinued. Further recommendations to follow. Nurse Practitioner note has been reviewed, I agree with a documented findings and plan of care. Patient was seen and examined. Objective - Vital Signs Vital signs: Vital Signs Temp 97.5 F L 05/23/19 08:00 Pulse 72 05/23/19 08:12 Resp 18 05/23/19 08:12 BP 81/33 05/23/19 08:00 Pulse Ox 97 05/23/19 08:00 Intake & Output 05/22/19 05/23/19 05/23/19 18:59 06:59 18:59 Intake Total 880 240 Output Total 0 400 Balance 880 -160 Intake: Intake, IV Titration 400 Amount Furosemide 100 mg In 100 Sodium Chloride 0.9% 90 ml @ 10 MG/HR 10 mls/hr IV .Q10H [facility] Rx#: [id number] Piperacillin-Tazobactam 3 200 .375 gm In Sodium Chloride 0.9% 100 ml @ 25 mls/hr IVPB Q8HR [facility] Rx# :[id number] Sodium Ferric Gluconat- 100 Sucrose 125 mg In Sodium Chloride 0.9% 100 ml @ 100 mls/hr IVPB ONCE ONE Rx#:[id number] Oral 480 240 Output: Urine 0 400 Other: # Voids 3 - Labs CBC & Chem 7: 05/22/19 06:18 05/23/19 06:05 Labs: Abnormal Lab Results - Last 24 Hours (Table) 05/22/19 05/22/19 05/22/19 Range/Units 11:38 16:53 20:06 Sodium (137-145) mmol/L Chloride (98-107) mmol/L Carbon Dioxide (22-30) mmol/L BUN (9-20) mg/dL Creatinine (0.66-1.25) mg/dL Glucose (74-99) mg/dL POC Glucose (mg/dL) 131 H 131 H 142 H (75-99) mg/dL 05/22/19 05/23/19 05/23/19 Range/Units 20:25 06:05 06:14 Sodium 130 L (137-145) mmol/L Chloride 81 L (98-107) mmol/L Carbon Dioxide 38 H (22-30) mmol/L BUN 48 H (9-20) mg/dL Creatinine 2.90 H (0.66-1.25) mg/dL Glucose 136 H (74-99) mg/dL POC Glucose (mg/dL) 150 H 158 H (75-99) mg/dL Microbiology - Last 24 Hours (Table) 05/20/19 07:13 Blood Culture - Preliminary Blood No Growth after 72 hours 05/22/19 14:25 - Preliminary Mouth 05/20/19 19:15 Gram Stain - Final Sputum Sputum Culture - Final Marialuisa albicans
--- NOTE | 2019-05-23 11:11 | P.PN ---
Subjective Progress Note Date: 05/23/19 Principal diagnosis: Dyspnea This is a 69-year-old white male patient with history of chronic congestive heart failure with systolic dysfunction and baseline ejection fraction of 30%, sick sinus syndrome status post dual-chamber AICD implantation, severe stage IV COPD with a baseline FEV1 of 22% of predicted on home oxygen, hypertension, myocardial infarction, coronary artery disease with previous stenting, chronic kidney disease, hypothyroidism, paroxysmal atrial fibrillation, chronic anemia, and former history of smoking was recently hospitalized for acute exacerbation o f CHF and discharged home in stable condition on 05/08/2019. Following discharge patient does feel better however last week he started getting increasingly more dyspneic, but he denies any chest pain, he denies any significant weight increase or lower extremity edema, she denied any fever or chills, denied any palpitations. Did see Dr. Hou in follow-up a week ago on , and chest x-ray was taken patient was told that he still has a fluid on his lungs, and to increase his dose of Lasix to 40 mg twice daily. Patient did feel better for a day, however he only increased his dose of Lasix for 1 day, and he started becoming more dyspneic and came into the hospital for evaluation. He did see Dr. Lindo yesterday on 05/19/2019 and underwent a stress test the results of which are unknown to us at this time. Chest x-ray was completed today showing increasing interstitial prominence, cyst and small right pleural effusion, and slightly more prominent focal right basilar acute infiltrates with the possibility of infectious process in addition to CHF. Patient was given a dose of cefepime, Levaquin and vancomycin, he was given a one dose of IV Lasix, and restarted on his home dose Lasix. And this consultation was initiated for evaluation of his dyspnea On 05/21/2019 patient seen in follow-up on selective care unit. He states his breathing is much improved since yesterday, he continues on IV Lasix at 40 mg and he is in -1550 ML fluid balance. Cardiology is following, and is planning on initiating Lasix drip. Follow-up chest x-ray is pending, vital signs are stable, no fever or chills, early on 4 L of oxygen with a pulse ox of 98%. Blood and sputum cultures are pending, sputum Gram stain showed rare gram- positive cocci, rare gram-positive bacilli and rare budding yeast. he is covered with empiric antibiotics, pro-calcitonin level came back low at 0.15, doubt underlying infection, will await the results of the final cultures. Continue the antibiotics for now. No complaints of chest pain On 05/23/2019 patient seen in follow-up on selective care unit. Lasix drip has been stopped this morning although not discontinued in the computer. there have been no weights recorded in the last 48 hours. Acurate intake and output are difficult to estimate. Morning's labs revealed increase in patient's BUN and creatinine, to 48 and 2.9 respectively. Patient is being started on dopamine drip per cardiology, overall he states his breathing is improving. No signifi cant cough or congestion, lung sounds reveal diminished breath sounds at the bases and fine rales. Positive pedal edema. No complaints chest pain. No wheezing, remains on IV steroids, which we can transition to oral prednisone Objective - Vital Signs Vital signs: Vital Signs Temp 97.5 F L 05/23/19 08:00 Pulse 72 05/23/19 08:12 Resp 18 05/23/19 08:12 BP 81/33 05/23/19 08:00 Pulse Ox 97 05/23/19 08:00 Intake & Output 05/22/19 05/23/19 05/23/19 18:59 06:59 18:59 Intake Total 880 240 Output Total 0 400 Balance 880 -160 Intake: Intake, IV Titration 400 Amount Furosemide 100 mg In 100 Sodium Chloride 0.9% 90 ml @ 10 MG/HR 10 mls/hr IV .Q10H [facility] Rx#: [id number] Piperacillin-Tazobactam 3 200 .375 gm In Sodium Chloride 0.9% 100 ml @ 25 mls/hr IVPB Q8HR [facility] Rx# :[id number] Sodium Ferric Gluconat- 100 Sucrose 125 mg In Sodium Chloride 0.9% 100 ml @ 100 mls/hr IVPB ONCE ONE Rx#:[id number] Oral 480 240 Output: Urine 0 400 Other: # Voids 3 - Exam GENERAL EXAM: Alert, extremely pleasant 69-year-old white male, on 3 L of oxygen with a pulse ox of 97%, comfortable in no apparent distress. HEAD: Normocephalic/atraumatic. EYES: Normal reaction of pupils, equal size. Conjunctiva pink, sclera white. NOSE: Clear with pink turbinates. THROAT: No erythema or exudates. NECK: No masses, no JVD, no thyroid enlargement, no adenopathy. CHEST: No chest wall deformity. Symmetrical expansion. LUNGS: Equal air entry with bibasilar crackles, diminished breath sounds bilaterally at the bases, but no significant wheezing or rhonchi CVS: Regular rate and rhythm, normal S1 and S2, no gallops, no murmurs, no rubs ABDOMEN: Soft, nontender. No hepatosplenomegaly, normal bowel sounds, no guarding or rigidity. EXTREMITIES: No clubbing, 1+ pedal edema, and trace pretibial edema, no cyanosis, 2+ pulses and upper and lower extremities. MUSCULOSKELETAL: Muscle strength and tone normal. SPINE: No scoliosis or deformity SKIN: No rashes CENTRAL NERVOUS SYSTEM: Alert and oriented -3. No focal deficits, tone is normal in all 4 extremities. PSYCHIATRIC: Alert and oriented -3. Appropriate affect. Intact judgment and insight. - Labs CBC & Chem 7: 05/22/19 06:18 05/23/19 06:05 Labs: Abnormal Lab Results - Last 24 Hours (Table) 05/22/19 05/22/19 05/22/19 Range/Units 11:38 16:53 20:06 Sodium (137-145) mmol/L Chloride (98-107) mmol/L Carbon Dioxide (22-30) mmol/L BUN (9-20) mg/dL Creatinine (0.66-1.25) mg/dL Glucose (74-99) mg/dL POC Glucose (mg/dL) 131 H 131 H 142 H (75-99) mg/dL 05/22/19 05/23/19 05/23/19 Range/Units 20:25 06:05 06:14 Sodium 130 L (137-145) mmol/L Chloride 81 L (98-107) mmol/L Carbon Dioxide 38 H (22-30) mmol/L BUN 48 H (9-20) mg/dL Creatinine 2.90 H (0.66-1.25) mg/dL Glucose 136 H (74-99) mg/dL POC Glucose (mg/dL) 150 H 158 H (75-99) mg/dL Microbiology - Last 24 Hours (Table) 05/20/19 07:13 Blood Culture - Preliminary Blood No Growth after 72 hours 05/22/19 14:25 - Preliminary Mouth 05/20/19 19:15 Gram Stain - Final Sputum Sputum Culture - Final Marialuisa albicans Assessment and Plan Plan: Assessment: #1. Acute dyspnea related to acute exacerbation of chronic congestive heart failure with systolic dysfunction and EF of 30-35% #2. Chronic kidney disease, stage III at baseline #3. Admission for acute CHF #4. Hyponatremia likely hypercholesterolemia, related to acute CHF #5. Recent history of acute kidney injury, cardiorenal in nature, recovering #6. Metabolic alkalosis likely secondary to diuresis #7. Chronic anemia #8. Ischemic cardiomyopathy with ejection fraction of 30-35% #9. Severe COPD with FEV1 of 22% of predicted on home oxygen #10. Sick sinus syndrome status post dual ICD placement in 2017 #11. Paroxysmal atrial fibrillation Plan: Continue with nebulized bronchodilators, we'll switch the IV steroids to oral prednisone, sputum blood cultures showed no growth, pro-calcitonin level was low, patient has been afebrile, we'll discontinue the Zosyn, will continue with Levaquin at this point. Diuretics per cardiology service. Will await their further input on possibility of heart catheterization. Patient had increase in his renal function, and nephrology is following. We'll obtain follow-up chest x-ray today. I performed a history & physical examination of the patient and discussed their management with my nurse practitioner, Eliz Barnard. I reviewed the nurse practitioner's note and agree with the documented findings and plan of care. Lung sounds are positive for a few bibasilar crackles. The findings and the impression was discussed with the patient. I attest to the documentation by the nurse practitioner. Time with Patient: Less than 30
[2019-05-23 11:47] LABS: Glucose,Whole Blood 156 mg/dL (75-99)
--- NOTE | 2019-05-23 12:11 | P.PN ---
Subjective Progress Note Date: 05/23/19 (Cardiorenal syndrome) Principal diagnosis: Diagnosis: #1 ischemic cardiomyopathy, recurrent admission. #2 congestive heart failure systolic at [place] of Chronic. #3 COPD with Exacerbation and Shortness of Breath. #4 Chronic Kidney Disease Stage III, When the Patient Congestive Heart Failure, #Acute Kidney Injury, Stage IV with the Patient Treated with Diuretics and Medication. #5 Sputum Growing Marialuisa, #6 oropharyngeal and the tongue a yeast with white spots. #7 patient on antibiotic for possibility of basilar infiltrate with the elevated pro-calcitonin, questionable pneumonitis versus congestive heart failure will wait for the pulmonary differentiation. #8 hyponatremia associated multifactorial, as well as delusional hyponatremia. Associated with his creatinine was 1.58, his baseline to to my assessment is #2. #9 hypothyroidism stable on medication. #10 generalized weakness associated with congestive heart failure chronic with cardiomyopathy and improvement of systolic function. #11 medication like interesto as well as MAT inhibitor, as well as Aldactone with the creatinine above 2 not indicated. #12 patient on Lasix infusion with the clinical improvement however worsening over his laboratory data. #13 mouth and tongue and oropharyngeal with white spots with the possibility of Marialuisa albicans secondary to decreased immune response, patient on Levaquin and Zosyn for his long and rate for the pulmonary input and of the antibiotic. Progress note date of service 05/23/2090. Dictation by Dr. Sharmin Alfaro [facility]. Patient seen and evaluated [id number] today. On Friday the question of the family, Patient vital sign indicating temperature 97.5 F oral. Pulse rate 73 per minute regular with the underlying history of paroxysmal atrial fibrillation. His respiratory rate 16 normal non-labored. His blood pressure 81/73 with the hypotension is oxygen saturation 97. He is on oxygen 3 L currently. Laboratory today: Sodium 130 and potassium 3.7 chloride 81, carbon dioxide 38, anion gap of 11, is BUN 48, his creatinine 2.90 which is increased and his estimated glomerular filtration rate for non- 25, Association of acute kidney injury and stage IV. He has also ischemic cardiomyopathy he had been previously stress test at Dr. Lindo office we don't have the results. Hyperglycemia secondary to steroid covered with insulin to scale NovoLog. In general stable at this time calcium is 8.5. Patient seen by nurse practitioner PULMONARY, and cardiology, as well as Dr. Wells, waiting for Dr. Saroj Morales I nephrology for their input and Dr. Wells was discussing the dopamine perfusion imaging revealed diagnosis by the nephrology with the worsening his renal function and despite of discontinuing THE medication. Clinical examination: Patient is conscious alert oriented 3 his family at bedside his son and his . He is able to communicate freely no neurological deficit no confusion or disorientation. HEENT negative except to that he has thrush and they gave him swish and swallow however I couldn't locate the order on the computer. Patient told me that. Patient has dentures, no lymphadenopathy. Neck supple normal motion no JVD no thyromegaly no lymphadenopathy. Chest: He had advanced COPD stage IV with the FEV1 22%. He has scattered rhonchi however in general improvement of the lung, and x-ray of yesterday indicating some atelectasis or pneumonia, pulmonary order another x-ray with the underlying culture of the oropharynx is not yet available. This could be the localization to the the oropharynx with the contaminated this could not be cleared at this point. Heart: Regular sinus rhythm, on amiodarone for antiarrhythmic medication, history of paroxysmal atrial fibrillation, with reported ejection fraction 30- 35%, we had history that he had stress test in the cardiology office but we don't have the result and we will request these results today on the chart. Abdomen soft positive bowel sounds no tenderness, third day of no bowel movement for be tomorrow. Extremities positive pulses and ankle edema only no shafting him it was trace to 1+ Neurologically stable no evidence. Assessment: And plan. #1 cardiorenal syndrome. #2 ischemic cardiomyopathy. #3 acute renal failure, stage IV renal function, #4 medication adjusted by cardiology and nephrology and pulmonary. #5 waiting for nephrology for input. #6 in general patient clinical improvement. #7 continue current treatment. Objective - Vital Signs Vital signs: Vital Signs Temp 97.5 F L 05/23/19 08:00 Pulse 72 05/23/19 08:12 Resp 18 05/23/19 08:12 BP 81/33 05/23/19 08:00 Pulse Ox 97 05/23/19 08:00 Intake & Output 05/22/19 05/23/19 05/23/19 18:59 06:59 18:59 Intake Total 880 240 Output Total 0 400 Balance 880 -160 Intake: Intake, IV Titration 400 Amount Furosemide 100 mg In 100 Sodium Chloride 0.9% 90 ml @ 10 MG/HR 10 mls/hr IV .Q10H [facility] Rx#: [id number] Piperacillin-Tazobactam 3 200 .375 gm In Sodium Chloride 0.9% 100 ml @ 25 mls/hr IVPB Q8HR [facility] Rx# :[id number] Sodium Ferric Gluconat- 100 Sucrose 125 mg In Sodium Chloride 0.9% 100 ml @ 100 mls/hr IVPB ONCE ONE Rx#:[id number] Oral 480 240 Output: Urine 0 400 Other: # Voids 3 - Labs CBC & Chem 7: 05/22/19 06:18 05/23/19 06:05 Labs: Abnormal Lab Results - Last 24 Hours (Table) 05/22/19 05/22/19 05/22/19 Range/Units 16:53 20:06 20:25 Sodium (137-145) mmol/L Chloride (98-107) mmol/L Carbon Dioxide (22-30) mmol/L BUN (9-20) mg/dL Creatinine (0.66-1.25) mg/dL Glucose (74-99) mg/dL POC Glucose (mg/dL) 131 H 142 H 150 H (75-99) mg/dL 05/23/19 05/23/19 05/23/19 Range/Units 06:05 06:14 11:45 Sodium 130 L (137-145) mmol/L Chloride 81 L (98-107) mmol/L Carbon Dioxide 38 H (22-30) mmol/L BUN 48 H (9-20) mg/dL Creatinine 2.90 H (0.66-1.25) mg/dL Glucose 136 H (74-99) mg/dL POC Glucose (mg/dL) 158 H 156 H (75-99) mg/dL Microbiology - Last 24 Hours (Table) 05/20/19 07:13 Blood Culture - Preliminary Blood No Growth after 72 hours 05/22/19 14:25 - Preliminary Mouth 05/20/19 19:15 Gram Stain - Final Sputum Sputum Culture - Final Marialuisa albicans
--- NOTE | 2019-05-23 12:31 | XR ---
EXAMINATION TYPE: XR chest 2V DATE OF EXAM: 05/23/2019 HISTORY: follow up CHF/pneumonia. REFERENCE: Previous study dated 05/22/2019. FINDINGS: There is a bipolar pacemaker place on the left. The heart is mildly enlarged. There is slightly improved aeration of both lung bases. Pleural spaces are clear. IMPRESSION: IMPROVED AERATION, BOTH LOCATIONS.
--- NOTE | 2019-05-23 12:44 | P.PN ---
Subjective Progress Note Date: 05/23/19 Principal diagnosis: This is a 69-year-old male seen in consultation because of chronic kidney disease, an element of acute kidney injury secondary to cardiorenal syndrome and hypotension. He came in because of congestive heart failure. As of this morning he is feeling somewhat better, although his creatinine went up from 1.53, to 2.5 to 2.9. He was started on Reji and his blood pressure went down creatinine went up from 1.8-2.5 yesterday. That was discontinued yesterday therefore. He received only one dose Blood pressure remains low, in the 80s. He says is making fair amount of urine but is not documented as to how much. A chest x-ray continued to show congestive heart failure. He is on Lasix drip. Patient is on 2 L nasal cannula and is stable. He was able to walk denies any symptom of dizziness but was feeling weak and had to take his time. No nausea vomiting diarrhea abdominal pain. No chest pain. Objective - Vital Signs Vital signs: Vital Signs Temp 97.5 F L 05/23/19 08:00 Pulse 72 05/23/19 08:12 Resp 18 05/23/19 08:12 BP 81/33 05/23/19 08:00 Pulse Ox 97 05/23/19 08:00 Intake & Output 05/22/19 05/23/19 05/23/19 18:59 06:59 18:59 Intake Total 880 240 Output Total 0 400 Balance 880 -160 Intake: Intake, IV Titration 400 Amount Furosemide 100 mg In 100 Sodium Chloride 0.9% 90 ml @ 10 MG/HR 10 mls/hr IV .Q10H [facility] Rx#: [id number] Piperacillin-Tazobactam 3 200 .375 gm In Sodium Chloride 0.9% 100 ml @ 25 mls/hr IVPB Q8HR [facility] Rx# :[id number] Sodium Ferric Gluconat- 100 Sucrose 125 mg In Sodium Chloride 0.9% 100 ml @ 100 mls/hr IVPB ONCE ONE Rx#:[id number] Oral 480 240 Output: Urine 0 400 Other: # Voids 3 On examination; alert oriented comfortable. He is on nasal cannula oxygen HEENT exam no JVP neck is supple no facial asymmetry Lungs are significant for bilateral fine crackles not clear but cough good air entry bilaterally Heart sounds are unremarkable for any murmur rub gallop Abdomen soft nontender Extremity exam was no edema Neurologically awake alert oriented - Labs CBC & Chem 7: 05/22/19 06:18 05/23/19 06:05 Labs: Abnormal Lab Results - Last 24 Hours (Table) 05/22/19 05/22/19 05/22/19 Range/Units 16:53 20:06 20:25 Sodium (137-145) mmol/L Chloride (98-107) mmol/L Carbon Dioxide (22-30) mmol/L BUN (9-20) mg/dL Creatinine (0.66-1.25) mg/dL Glucose (74-99) mg/dL POC Glucose (mg/dL) 131 H 142 H 150 H (75-99) mg/dL 05/23/19 05/23/19 05/23/19 Range/Units 06:05 06:14 11:45 Sodium 130 L (137-145) mmol/L Chloride 81 L (98-107) mmol/L Carbon Dioxide 38 H (22-30) mmol/L BUN 48 H (9-20) mg/dL Creatinine 2.90 H (0.66-1.25) mg/dL Glucose 136 H (74-99) mg/dL POC Glucose (mg/dL) 158 H 156 H (75-99) mg/dL Microbiology - Last 24 Hours (Table) 05/22/19 14:25 - Preliminary Mouth Marialuisa albicans 05/20/19 07:13 Blood Culture - Preliminary Blood No Growth after 72 hours 05/20/19 19:15 Gram Stain - Final Sputum Sputum Culture - Final Marialuisa albicans Assessment and Plan Assessment: Impression 1. Acute kidney injury. Creatinine went up from 1.5-1.8-2.5 and further to 2.9, the cause of this is likely from hypotension. He was started on Reji, and probably received only one dose yesterday, and has been discontinued.. 2. 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 Baseline creatinine is about 1.5 3. Congestive heart failure, persistent. Echocardiogram reports 35% ejection fraction 4. Metabolic alkalosis secondary to diuretics . 5. Iron deficiency with saturation 8%. One dose of Ferrlecit given 05/22/2019 6. Anemia. Secondary to CKD, hemoglobin 7.5. 7. Mild hyponatremia sodium is 131 secondary to acute kidney injury, an element of hyperglycemia adding. Recommendation 1. Continue aggressive diuretic regimen currently on 2. Agree with dopamine to improve cardiac output as his ejection fraction is 35%. 3. Avoid Micah inhibitors or ARB 4. A cardiac catheterization should be postponed until creatinine is back to baseline. It can be done if it is an urgency though. Patient is aware of the risk. We will recheck labs tomorrow and hoping the blood pressure will improve and the creatinine will improve and he will be ready by Friday hopefully
[2019-05-23] MEDS: DEXTROSE/WATER 1 250ML.BAG with DOPamine DRIP 800 MG IV SCH (12:58)
[2019-05-23 16:50] LABS: Glucose,Whole Blood 120 mg/dL (75-99)
[2019-05-23] MEDS ORDERED: ACETAMINOPHEN TAB 325 MG TAB PO PRN (17:41)
[2019-05-23 20:16] LABS: Glucose,Whole Blood 121 mg/dL (75-99)
[2019-05-23] MEDS: ATORVASTATIN 40 MG TAB PO SCH (21:03)
[2019-05-23] MEDS: MULTIVITAMINS, THERA 1 EACH TAB PO SCH (21:03)
[2019-05-23] MEDS: DOCUSATE 100 MG CAP PO SCH (21:03)
[2019-05-23] MEDS: ALLOPURINOL 100 MG TAB PO SCH (21:03)
[2019-05-23] MEDS: CHOLECALCIFEROL 1,000 UNIT TAB PO SCH (21:03)
[2019-05-23] MEDS: FOLIC ACID 1 MG TAB PO SCH (21:03)
[2019-05-23] MEDS: LACTOBACILLUS ACIDOPH & BULGAR 1 EACH PACKET PO SCH (21:04)
[2019-05-23] MEDS: SODIUM CHLORIDE 0.9% 500 ML 500 ML IV SCH (22:58)
[2019-05-24] MEDS: NYSTATIN 100,000 UNIT/ML SUSP 500,000 UNIT/5 ML CUP PO SCH ×4 (02:47→17:13)
[2019-05-24] MEDS ORDERED: SODIUM CHLORIDE 0.9% 1,000 ML in EMPTY BAG 1 BAG IV ONE (03:00)
[2019-05-24] MEDS: IPRATROPIUM-ALBUTEROL 3 ML NEB INHALATION PRN (03:33)
[2019-05-24 05:51] LABS: Anisocytosis Slight; Basophils % (A) 0 %; Eosinophils % (A) 0 %; HCT 22.9 % (39.0-53.0); HGB 7.1 gm/dL (13.0-17.5); Hypochromasia Marked; Lymphocytes # (A) 0.7 k/uL (1.0-4.8); Lymphocytes % (A) 11 %; MCH 32.2 pg (25.0-35.0); MCHC 31.1 g/dL (31.0-37.0); MCV 103.7 fL (80.0-100.0); Macrocytosis Moderate; Mean Platelet Volume 7.9; Monocytes # (A) 0.6 k/uL (0-1.0); Monocytes % (A) 9 %; Neutrophils # (A) 5.1 k/uL (1.3-7.7); Neutrophils % (A) 77 %; Platelet Count 181 k/uL (150-450); RBC 2.21 m/uL (4.30-5.90); WBC 6.6 k/uL (3.8-10.6)
[2019-05-24] MEDS ORDERED: ASPIRIN 325 MG TAB PO ONE (06:00)
[2019-05-24] MEDS ORDERED: ATORVASTATIN 80 MG TAB PO ONE (06:00)
[2019-05-24 06:05] LABS: Calcium 8.7 mg/dL (8.4-10.2); Potassium 3.5 mmol/L (3.5-5.1)
[2019-05-24 06:17] LABS: Glucose,Whole Blood 119 mg/dL (75-99)
[2019-05-24] MEDS: LEVOTHYROXINE 100 MCG TAB PO SCH (07:17)
[2019-05-24] MEDS: LEVOTHYROXINE 75 MCG TAB PO SCH (07:17)
[2019-05-24] MEDS: IPRATROPIUM-ALBUTEROL 3 ML NEB INHALATION SCH ×4 (07:30→19:36)
[2019-05-24] MEDS: SYMBICORT 160-4.5 MCG INHALER INHALATION SCH ×2 (07:30→19:36)
[2019-05-24] MEDS ORDERED: predniSONE 20 MG TAB PO SCH (09:00)
[2019-05-24] MEDS: INSULIN ASPART (NovoLOG) 100 UNIT/ML VIAL SQ SCH ×3 (09:32→17:14)
[2019-05-24] MEDS: AMIODARONE 200 MG TAB PO SCH (09:40)
[2019-05-24] MEDS: CYANOCOBALAMIN 500 MCG TAB PO SCH (09:40)
[2019-05-24] MEDS: CLOPIDOGREL 75 MG TAB PO SCH (09:40)
[2019-05-24] MEDS: ASPIRIN 81 MG PO SCH (09:40)
[2019-05-24] MEDS: METOPROLOL TARTRATE 25 MG TAB PO SCH ×2 (09:40→20:53)
[2019-05-24] MEDS: FUROSEMIDE 100 MG in SODIUM CHLORIDE 0.9% 90 ML IV SCH (09:41)
[2019-05-24] MEDS: PANTOPRAZOLE 40 MG TABLET PO SCH (09:46)
[2019-05-24 11:53] LABS: Glucose,Whole Blood 103 mg/dL (75-99)
--- NOTE | 2019-05-24 12:20 | P.PN ---
Subjective Progress Note Date: 05/24/19 This is a pleasant 69-year-old gentleman who follows regularly with Dr. Lindo in the office. 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 He states that he did see Dr. Lindo in the office on Friday underwent a stress test at that time. Chest x-ray shows congestive heart failure exacerbation on the background of chronic parenchymal change, increasing interstitial prominence likely reflecting interstitial edema. There is also a small right-sided pleural effusion. EKG shows normal sinus rhythm with a first-degree AV block and a right bundle branch block pattern. Blood pressure 118/50 with a heart rate in the 70s, afebrile. White blood cell count 8.2, hemoglobin 7.9, platelet count 180. Pro calcitonin 0.15. Sodium 129, potassium 4.1, chloride 78, CO2 43, BUN 35, creatinine 1.5, magnesium 2.4, BNP level 12,1200. Troponin 0.049, 0.047. At the time of my examination this morning, the patient is sitting up in chair at bedside, is present. He is quite frustrated at the fact that he's had multiple readmissions with heart failure exacerbation. Patient was initiated on IV Lasix, and has been diuresing. 05/24/2019 Patient seen and examined this morning, complaints of feeling extremely weak today. Repeat chest x-ray yesterday did show improvement of congestive cardiac failure. I pressure 104/60 with a heart rate in the 80s, 95% on 3 L of oxygen. White blood cell count 6.6, hemoglobin 7.1, platelet count 181. Sodium 131, potassium 3.5, BUN 49 and creatinine 2.6. Cardiac catheterization which was initially scheduled to be performed today has been canceled because of the patient's renal function. Objective - Vital Signs Vital signs: Vital Signs Temp 97.3 F L 05/24/19 07:59 Pulse 80 05/24/19 11:07 Resp 18 05/24/19 11:49 BP 103/64 05/24/19 07:59 Pulse Ox 95 05/24/19 07:59 Intake & Output 05/23/19 05/24/19 05/24/19 18:59 06:59 18:59 Intake Total 835 382.917 100 Output Total 400 800 Balance 435 -417.083 100 Weight 63.3 kg Intake: IV 50 Furosemide 100 mg In 50 Sodium Chloride 0.9% 90 ml @ 10 MG/HR 10 mls/hr IV .Q10H FLORES Rx#: [id number] Intake, IV Titration 115 110.917 100 Amount Dextrose/Water 1 250ml. 15 14.75 bag @ 2.5 MCG/KG/MIN 2. 939 mls/hr IV .Q24H FLORES with DOPamine DRIP 800 mg Rx#:[id number] Furosemide 100 mg In 96.167 100 Sodium Chloride 0.9% 90 ml @ 10 MG/HR 10 mls/hr IV .Q10H FLORES Rx#: [id number] Piperacillin-Tazobactam 3 100 .375 gm In Sodium Chloride 0.9% 100 ml @ 25 mls/hr IVPB Q8HR FLORES Rx# :[id number] Oral 720 222 Output: Urine 400 800 Other: Voiding Method Urinal Urinal - Exam PHYSICAL EXAMINATION: GENERAL: 68-year-old gentleman in no acute distress at the time of my examination HEENT: Head is atraumatic, normocephalic. Pupils equal, round. Sclera anicteric. Conjunctiva are clear. Mucous membranes of the mouth are moist. Neck is supple. There is elevated jugular venous pressure. No carotid bruit is heard. HEART EXAMINATION: Heart S1 S2 1 systolic murmur is heard CHEST EXAMINATION: Lungs reveal fine rales to bilateral bases. ABDOMEN: Soft, nontender. Bowel sounds are heard. No organomegaly noted. EXTREMITIES: 2+ peripheral pulses with trace evidence of peripheral edema, right leg greater than left. NEUROLOGIC patient is awake, alert and oriented 3 . - Labs CBC & Chem 7: 05/24/19 05:19 05/24/19 05:19 Labs: Abnormal Lab Results - Last 24 Hours (Table) 05/23/19 05/23/19 05/24/19 Range/Units 16:47 20:15 05:19 RBC (4.30-5.90) m/uL Hgb (13.0-17.5) gm/dL Hct (39.0-53.0) % MCV (80.0-100.0) fL RDW (11.5-15.5) % Lymphocytes # (1.0-4.8) k/uL Sodium 131 L (137-145) mmol/L Chloride 85 L (98-107) mmol/L Carbon Dioxide 40 H (22-30) mmol/L BUN 49 H (9-20) mg/dL Creatinine 2.64 H (0.66-1.25) mg/dL POC Glucose (mg/dL) 120 H 121 H (75-99) mg/dL 05/24/19 05/24/19 05/24/19 Range/Units 05:19 06:16 11:51 RBC 2.21 L (4.30-5.90) m/uL Hgb 7.1 L (13.0-17.5) gm/dL Hct 22.9 L (39.0-53.0) % MCV 103.7 H (80.0-100.0) fL RDW 17.0 H (11.5-15.5) % Lymphocytes # 0.7 L (1.0-4.8) k/uL Sodium (137-145) mmol/L Chloride (98-107) mmol/L Carbon Dioxide (22-30) mmol/L BUN (9-20) mg/dL Creatinine (0.66-1.25) mg/dL POC Glucose (mg/dL) 119 H 103 H (75-99) mg/dL Microbiology - Last 24 Hours (Table) 05/22/19 14:25 - Final Mouth Marialuisa albicans 05/20/19 07:13 Blood Culture - Preliminary Blood No Growth after 96 hours Assessment and Plan Plan: Assessment and plan #1 shortness of breath with combination of systolic congestive heart failure acute on chronic and COPD exacerbation #2 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 Patient continues to have bilateral rales and states that he does feel short of breath today overall. We will continue current dose of Lasix drip along with the dopamine, check lytes BUN and creatinine in the morning. The cardiac catheterization which was scheduled to be performed today has been canceled because of the renal function. DNP note has been reviewed, I agree with a documented findings and plan of care. Patient was seen and examined.
--- NOTE | 2019-05-24 12:25 | P.PN ---
Subjective Patient is seen in follow-up for acute kidney injury on chronic kidney disease. Patient has chronic kidney disease stage III with baseline creatinine near 1.5. Renal function is better today. Creatinine 2.64. He is maintained on Lasix drip as well as dopamine. Patient has systolic CHF with ejection fraction of 30-35% with moderate mitral regurgitation and pulmonary hypertension. Dyspnea is improved. Urine output is good. Vital signs are stable. General: The patient appeared well nourished and normally developed. HEENT: Head exam is unremarkable. Neck is without jugular venous distension. LUNGS: Breath sounds decreased. Rhonchi present. HEART: Rate and Rhythm are regular. First and second heart sounds normal. No murmurs, rubs or gallops. ABDOMEN: Abdominal exam reveals normal bowel sounds. Non-tender and non- distended. No evidence of peritonitis. EXTREMITITES: Trace edema. Objective - Vital Signs Vital signs: Vital Signs Temp 97.3 F L 05/24/19 07:59 Pulse 80 05/24/19 11:07 Resp 18 05/24/19 11:49 BP 103/64 05/24/19 07:59 Pulse Ox 95 05/24/19 07:59 Intake & Output 05/23/19 05/24/19 05/24/19 18:59 06:59 18:59 Intake Total 835 382.917 100 Output Total 400 800 Balance 435 -417.083 100 Weight 63.3 kg Intake: IV 50 Furosemide 100 mg In 50 Sodium Chloride 0.9% 90 ml @ 10 MG/HR 10 mls/hr IV .Q10H FLOR[facility] Rx#: [id number] Intake, IV Titration 115 110.917 100 Amount Dextrose/Water 1 250ml. 15 14.75 bag @ 2.5 MCG/KG/MIN 2. 939 mls/hr IV .Q24H FLORES with DOPamine DRIP 800 mg Rx#:[id number] Furosemide 100 mg In 96.167 100 Sodium Chloride 0.9% 90 ml @ 10 MG/HR 10 mls/hr IV .Q10H [facility]OR[facility] Rx#: [id number] Piperacillin-Tazobactam 3 100 .375 gm In Sodium Chloride 0.9% 100 ml @ 25 mls/hr IVPB Q8HR [facility] Rx# :[id number] Oral 720 222 Output: Urine 400 800 Other: Voiding Method Urinal Urinal - Labs CBC & Chem 7: 05/24/19 05:19 05/24/19 05:19 Labs: Abnormal Lab Results - Last 24 Hours (Table) 05/23/19 05/23/19 05/24/19 Range/Units 16:47 20:15 05:19 RBC (4.30-5.90) m/uL Hgb (13.0-17.5) gm/dL Hct (39.0-53.0) % MCV (80.0-100.0) fL RDW (11.5-15.5) % Lymphocytes # (1.0-4.8) k/uL Sodium 131 L (137-145) mmol/L Chloride 85 L (98-107) mmol/L Carbon Dioxide 40 H (22-30) mmol/L BUN 49 H (9-20) mg/dL Creatinine 2.64 H (0.66-1.25) mg/dL POC Glucose (mg/dL) 120 H 121 H (75-99) mg/dL 05/24/19 05/24/19 05/24/19 Range/Units 05:19 06:16 11:51 RBC 2.21 L (4.30-5.90) m/uL Hgb 7.1 L (13.0-17.5) gm/dL Hct 22.9 L (39.0-53.0) % MCV 103.7 H (80.0-100.0) fL RDW 17.0 H (11.5-15.5) % Lymphocytes # 0.7 L (1.0-4.8) k/uL Sodium (137-145) mmol/L Chloride (98-107) mmol/L Carbon Dioxide (22-30) mmol/L BUN (9-20) mg/dL Creatinine (0.66-1.25) mg/dL POC Glucose (mg/dL) 119 H 103 H (75-99) mg/dL Microbiology - Last 24 Hours (Table) 05/22/19 14:25 - Final Mouth Marialuisa albicans 05/20/19 07:13 Blood Culture - Preliminary Blood No Growth after 96 hours Assessment and Plan Plan: Assessment: 1. Acute kidney injury secondary to ATN secondary to hypotension and cardiorenal syndrome. Renal function better today. Creatinine 2.64. 2. Volume overload. 3. Acute systolic CHF with ejection fraction of 30-35% with moderate mitral regurgitation and pulmonary hypertension. 4. Hypervolemic hyponatremia. 5. Anemia of chronic kidney disease. Iron deficiency noted. 6. Chronic kidney disease stage III secondary to nephrosclerosis with baseline creatinine near 1.5. 7. Metabolic alkalosis secondary to diuresis. Plan: Maintain Lasix drip and dobutamine. Continue to monitor renal function and urine output. Low-salt diet and 1200 mL fluid restriction. Add Aranesp. IV iron 2 doses. 1 dose today. Repeat electrolytes in the morning.
[2019-05-24] MEDS: LEVOFLOXACIN 250 MG TAB PO SCH (12:26)
[2019-05-24] MEDS ORDERED: DARBEPOETIN ALFA 40 MCG/0.4 ML SYRINGE SQ SCH (12:30)
[2019-05-24] MEDS ORDERED: SODIUM FERRIC GLUCONAT-SUCROSE 125 MG in SODIUM CHLORIDE 0.9% 100 ML IVPB SCH (13:00)
--- NOTE | 2019-05-24 15:37 | P.PN ---
Subjective Progress Note Date: 05/24/19 Principal diagnosis: Dyspnea This is a 69-year-old white male patient with history of chronic congestive heart failure with systolic dysfunction and baseline ejection fraction of 30%, sick sinus syndrome status post dual-chamber AICD implantation, severe stage IV COPD with a baseline FEV1 of 22% of predicted on home oxygen, hypertension, myocardial infarction, coronary artery disease with previous stenting, chronic kidney disease, hypothyroidism, paroxysmal atrial fibrillation, chronic anemia, and former history of smoking was recently hospitalized for acute exacerbation o f CHF and discharged home in stable condition on 05/08/2019. Following discharge patient does feel better however last week he started getting increasingly more dyspneic, but he denies any chest pain, he denies any significant weight increase or lower extremity edema, she denied any fever or chills, denied any palpitations. Did see Dr. Hou in follow-up a week ago on , and chest x-ray was taken patient was told that he still has a fluid on his lungs, and to increase his dose of Lasix to 40 mg twice daily. Patient did feel better for a day, however he only increased his dose of Lasix for 1 day, and he started becoming more dyspneic and came into the hospital for evaluation. He did see Dr. Lindo yesterday on 05/19/2019 and underwent a stress test the results of which are unknown to us at this time. Chest x-ray was completed today showing increasing interstitial prominence, cyst and small right pleural effusion, and slightly more prominent focal right basilar acute infiltrates with the possibility of infectious process in addition to CHF. Patient was given a dose of cefepime, Levaquin and vancomycin, he was given a one dose of IV Lasix, and restarted on his home dose Lasix. And this consultation was initiated for evaluation of his dyspnea On 05/21/2019 patient seen in follow-up on selective care unit. He states his breathing is much improved since yesterday, he continues on IV Lasix at 40 mg and he is in -1550 ML fluid balance. Cardiology is following, and is planning on initiating Lasix drip. Follow-up chest x-ray is pending, vital signs are stable, no fever or chills, early on 4 L of oxygen with a pulse ox of 98%. Blood and sputum cultures are pending, sputum Gram stain showed rare gram- positive cocci, rare gram-positive bacilli and rare budding yeast. he is covered with empiric antibiotics, pro-calcitonin level came back low at 0.15, doubt underlying infection, will await the results of the final cultures. Continue the antibiotics for now. No complaints of chest pain On 05/23/2019 patient seen in follow-up on selective care unit. Lasix drip has been stopped this morning although not discontinued in the computer. there have been no weights recorded in the last 48 hours. Acurate intake and output are difficult to estimate. Morning's labs revealed increase in patient's BUN and creatinine, to 48 and 2.9 respectively. Patient is being started on dopamine drip per cardiology, overall he states his breathing is improving. No signifi cant cough or congestion, lung sounds reveal diminished breath sounds at the bases and fine rales. Positive pedal edema. No complaints chest pain. No wheezing, remains on IV steroids, which we can transition to oral prednisone On 05/24/2019 patient seen in follow-up on selective care unit, he remains on dopamine and Lasix infusion, his dyspnea has improved, he is diuresing. Vital signs are stable, he remains on 3 L of oxygen with a pulse ox of 95%, no evidence of leukocytosis, his BUN is 49 and creatinine is 2.6. Cardiology has initiated the transfer to [facility] heart failure clinic for evaluation for possible LVAD. Patient was unable to have his heart catheterization related to his renal function. He has had no fever or chills, his blood and sputum culture showed no growth with the exception of Marialuisa albicans in the sputum likely oral cedric contamination. Yesterday we stopped patient's Zosyn, he remains on oral Levaquin, which we will discontinue today Objective - Vital Signs Vital signs: Vital Signs Temp 97.3 F L 05/24/19 07:59 Pulse 76 05/24/19 15:24 Resp 16 05/24/19 12:00 BP 98/56 05/24/19 12:00 Pulse Ox 96 05/24/19 12:00 Intake & Output 05/23/19 05/24/19 05/24/19 18:59 06:59 18:59 Intake Total 835 382.917 100 Output Total 400 800 Balance 435 -417.083 100 Weight 63.3 kg Intake: IV 50 Furosemide 100 mg In 50 Sodium Chloride 0.9% 90 ml @ 10 MG/HR 10 mls/hr IV .Q10H FLORES Rx#: [id number] Intake, IV Titration 115 110.917 100 Amount Dextrose/Water 1 250ml. 15 14.75 bag @ 2.5 MCG/KG/MIN 2. 939 mls/hr IV .Q24H FLORES with DOPamine DRIP 800 mg Rx#:[id number] Furosemide 100 mg In 96.167 100 Sodium Chloride 0.9% 90 ml @ 10 MG/HR 10 mls/hr IV .Q10H [facility] Rx#: [id number] Piperacillin-Tazobactam 3 100 .375 gm In Sodium Chloride 0.9% 100 ml @ 25 mls/hr IVPB Q8HR FLOR[facility] Rx# :[id number] Oral 720 222 Output: Urine 400 800 Other: Voiding Method Urinal Urinal - Exam GENERAL EXAM: Alert, extremely pleasant 69-year-old white male, on 3 L of oxygen with a pulse ox of 97%, comfortable in no apparent distress. HEAD: Normocephalic/atraumatic. EYES: Normal reaction of pupils, equal size. Conjunctiva pink, sclera white. NOSE: Clear with pink turbinates. THROAT: No erythema or exudates. NECK: No masses, no JVD, no thyroid enlargement, no adenopathy. CHEST: No chest wall deformity. Symmetrical expansion. LUNGS: Equal air entry with bibasilar crackles, diminished breath sounds bilaterally at the bases, but no significant wheezing or rhonchi CVS: Regular rate and rhythm, normal S1 and S2, no gallops, no murmurs, no rubs ABDOMEN: Soft, nontender. No hepatosplenomegaly, normal bowel sounds, no guarding or rigidity. EXTREMITIES: No clubbing, 1+ pedal edema, and trace pretibial edema, no cyanosis, 2+ pulses and upper and lower extremities. MUSCULOSKELETAL: Muscle strength and tone normal. SPINE: No scoliosis or deformity SKIN: No rashes CENTRAL NERVOUS SYSTEM: Alert and oriented -3. No focal deficits, tone is normal in all 4 extremities. PSYCHIATRIC: Alert and oriented -3. Appropriate affect. Intact judgment and insight. - Labs CBC & Chem 7: 05/24/19 05:19 05/24/19 05:19 Labs: Abnormal Lab Results - Last 24 Hours (Table) 05/23/19 05/23/19 05/24/19 Range/Units 16:47 20:15 05:19 RBC (4.30-5.90) m/uL Hgb (13.0-17.5) gm/dL Hct (39.0-53.0) % MCV (80.0-100.0) fL RDW (11.5-15.5) % Lymphocytes # (1.0-4.8) k/uL Sodium 131 L (137-145) mmol/L Chloride 85 L (98-107) mmol/L Carbon Dioxide 40 H (22-30) mmol/L BUN 49 H (9-20) mg/dL Creatinine 2.64 H (0.66-1.25) mg/dL POC Glucose (mg/dL) 120 H 121 H (75-99) mg/dL 05/24/19 05/24/19 05/24/19 Range/Units 05:19 06:16 11:51 RBC 2.21 L (4.30-5.90) m/uL Hgb 7.1 L (13.0-17.5) gm/dL Hct 22.9 L (39.0-53.0) % MCV 103.7 H (80.0-100.0) fL RDW 17.0 H (11.5-15.5) % Lymphocytes # 0.7 L (1.0-4.8) k/uL Sodium (137-145) mmol/L Chloride (98-107) mmol/L Carbon Dioxide (22-30) mmol/L BUN (9-20) mg/dL Creatinine (0.66-1.25) mg/dL POC Glucose (mg/dL) 119 H 103 H (75-99) mg/dL Microbiology - Last 24 Hours (Table) 05/22/19 14:25 - Final Mouth Marialuisa albicans 05/20/19 07:13 Blood Culture - Preliminary Blood No Growth after 96 hours Assessment and Plan Plan: Assessment: #1. Acute dyspnea related to acute exacerbation of chronic congestive heart failure with systolic dysfunction and EF of 30-35% #2. Chronic kidney disease, stage III at baseline #3. Admission for acute CHF #4. Hyponatremia likely hypercholesterolemia, related to acute CHF #5. Recent history of acute kidney injury, cardiorenal in nature, recovering #6. Metabolic alkalosis likely secondary to diuresis #7. Chronic anemia #8. Ischemic cardiomyopathy with ejection fraction of 30-35% #9. Severe COPD with FEV1 of 22% of predicted on home oxygen #10. Sick sinus syndrome status post dual ICD placement in 2017 #11. Paroxysmal atrial fibrillation Plan: Patient states his breathing overall has somewhat improved, although still has dyspnea at exertion and rest, no fever or chills, we'll discontinue the Levaquin, cultures are negative, no hemoptysis, no significant cough or congestion, continue with Lasix infusion. Yesterday's chest x-ray showed improved aeration of both lung bases.Cardiology is initiating transferred to [facility] heart failure clinic. Overall prognosis is extremely guarded in view of very poor lung function, severely impaired systolic function, multiple comorbidities. We'll continue to follow. I performed a history & physical examination of the patient and discussed their management with my nurse practitioner, Eliz Barnard. I reviewed the nurse practitioner's note and agree with the documented findings and plan of care. Lung sounds are positive for a few bibasilar crackles. The findings and the impression was discussed with the patient. I attest to the documentation by the nurse practitioner. Time with Patient: Less than 30
[2019-05-24 17:03] LABS: Glucose,Whole Blood 196 mg/dL (75-99)
[2019-05-24] MEDS: DEXTROSE/WATER 1 250ML.BAG with DOPamine DRIP 800 MG IV SCH (20:44)
[2019-05-24] MEDS: SODIUM CHLORIDE 0.9% 500 ML 500 ML IV SCH (20:45)
[2019-05-24] MEDS: DOCUSATE 100 MG CAP PO SCH (20:53)
[2019-05-24] MEDS: FOLIC ACID 1 MG TAB PO SCH (20:53)
[2019-05-24] MEDS: ATORVASTATIN 40 MG TAB PO SCH (20:53)
[2019-05-24] MEDS: ALLOPURINOL 100 MG TAB PO SCH (20:53)
[2019-05-24] MEDS: CHOLECALCIFEROL 1,000 UNIT TAB PO SCH (20:53)
[2019-05-24] MEDS: LACTOBACILLUS ACIDOPH & BULGAR 1 EACH PACKET PO SCH (20:53)
[2019-05-24] MEDS: MULTIVITAMINS, THERA 1 EACH TAB PO SCH (20:53)
[2019-05-24 21:21] LABS: Glucose,Whole Blood 148 mg/dL (75-99)
[2019-05-24 21:47] VITALS: BP 135/60; PULSE 83; RESP 18; TEMP 97.6
--- NOTE | 2019-05-25 05:35 | DS ---
DISCHARGE SUMMARY DATE OF SERVICE: 05/24/2019 Age 69-year-old, white male, and . He is a NO CODE. DATA: Height 5 feet 7 inches, weight 63.3 kg, BSA 1.74 meter square, BMI 21.9 kg per meter square. ALLERGIES: Allergy to HALOPERIDOL. Today, the patient is seen, evaluated and examined. Discussed with him the current plan and they started him by Nephrology/Cardiology dopamine and 2.5 mg infusion per kg per minute and due to his hypotension and use it for the renal doses as well to improve his kidney status with the underlying hypotension ranging between currently 98/56 with a mean 70 and the oxygen saturation on 3 L is 96. Laboratory data indicating that he has still his renal function has been progressed with acute kidney injury as well as his blood sugar has been controlled and they switched him to prednisone by the Pulmonary. His blood pressure is fluctuating initially was 103/64, however, it is dropped today and the lowest is 92/52. On the underlying laboratory, his white count 6.6, and his hemoglobin 7.1, and his hematocrit is 22.9 and MCV 103.7. His platelet count 181. He had marked hypochromasia, anisocytosis and macrocytosis with the underlying anemia of chronic disease, anemia of renal disease and as well as possibility of myelodysplastic syndrome. His sodium 131 today with mild hyponatremia with the infusion of Lasix. His chloride 85, his carbon dioxide 40, and he was on Diamox. His BUN is 49 and creatinine was 2.64. He has been on the admission with the severe in the pulmonary edema and congestive heart failure, he was 1.53 creatinine with the diuresis, it went up gradually to yesterday was 2.90 and today is 2.64 with associated help from the dopamine renal doses. His blood sugar has been controlled well with the oral steroid for COPD exacerbation and emphysema and ex-smoker and pulmonary hypertension as well. On today's exam, the patient was conscious, alert, oriented. He is also sitting on the bedside. He indicating that his ankle is swelling, which has been understandable but the shaft was no edema, no pitting edema and advised that he has to lift his legs above his head level even during the day. His head was normocephalic, atraumatic. He had a central baldness. He had oropharynx dentures, uvula midline. No facial asymmetry. The neck was supple. No JVD. No thyromegaly. No lymphadenopathy. However, he had hypothyroidism. The chest was increased anteroposterior diameter with the underlying still rales bilaterally. He has been followed with x-rays almost every other day or daily and one time we get the report as infiltrate and one time no infiltrate and as edema . Patient found also in his tongue that he had yeast and we did a culture, found to be yeast and treated with swish and swallow with nystatin. His abdomen is soft, positive bowel sounds. No organ enlargement. Extremities, no edema except the ankle edema, trace to 1+. The current blood sugar was mild hyperglycemia secondary to the steroid, the calcium was normal. The culture was negative so far and the Marialuisa albicans found in the oropharyngeal. Patient today is seen by Dr. Anaya, Nephrology and his assessment is the patient had acute kidney injury secondary to ATN secondary to hypotension and cardiorenal syndrome. Renal function is better today, creatinine 2.64. He had a volume overload and he had acute systolic congestive heart failure with ejection fraction 30-35 with moderate mitral regurgitation and pulmonary hypertension. Next point, hypervolemic hyponatremia and anemia of chronic disease with iron deficiency. He had a chronic kidney disease stage 3 secondary to nephrosclerosis baseline with baseline near 1.5, and he had metabolic alkalosis secondary to diuresis. His recommendation that maintain the Lasix drip and the dobutamine, however, was not dobutamine that was dopamine was typo correction and continue monitoring the renal function. Low-salt diet and restriction 1200 mL fluid restriction and added Aranesp and iron IV for 2 doses, one dose today and repeat electrolytes in a.m. Also Cardiology did see the patient today and this dictation was done by Dr. Gomes who is the nurse practitioner for Cardiology and her assessment at this time: 1)Shortness of breath with combination of systolic congestive heart failure, acute on chronic and COPD exacerbation; 2) Ischemic cardiomyopathy with prior ICD implantation; 3) Coronary artery disease with prior left main stenting; 4) COPD; 5) Hypertension; 6) Chronic kidney disease; 7) Hyperlipidemia; 8) Hypothyroidism; 9) Paroxysmal atrial fibrillation and patient currently on amiodarone; 10) Chronic anemia and 11) Nicotine dependence, however, he quit smoking for over 2 years now. Today the plan for them in cardiology perspective and chest x-ray there is improvement in congestive heart failure and continue to have bilateral rales and short of breath. Cardiology recommended continue Lasix drip with the dopamine and check his electrolytes. The cardiac catheterization was scheduled to be performed today, however, canceled because of the renal function. Subsequently and during the day, I got a call that the Cardiology decided to talk to [facility] and to transfer the patient to Congestive Heart Failure Unit at [facility] and the plan for discharge today and the Cardiology group with Dr. Gomes who is nurse practitioner calling the [facility] for arrangement of the transfer and patient will be transferred with the multiple as mentioned above diagnoses and mainly his cardiorenal syndrome with the acute kidney injury as well as ischemic cardiomyopathy and hypotension with difficult to preload or afterload the heart and they requested to be transferred to [facility]. They will make the arrangement and I agree with that with the above findings. CONSULTING PHYSICIANS: 1. [facility]: seen by Dr. Hardik Haynes, Dr. Hollis, Dr. Oropeza. 2. Nephrology: Dr. Kyle, Dr. Anaya and Dr. Topete. 3. Pulmonary: With Dr. Hou and Dr. Khalil for the underlying chronic hypoxemia, COPD, ex-smoker, emphysema and pulmonary hypertension. DISPOSITION: To discharge by discharge summary arrangements from Cardiology will be made. MMODL / IJN: [id number] /
== END 2019-05-24 22:15 | disposition short-term general hospital (02) | DRG 291 ==
LOC: EC 05:27 → 3SCARD 07:10
PROVIDERS: ADMIT Internal Medicine; ATTEND Internal Medicine
DX: I13.0 Hypertensive heart and chronic kidney disease with heart failure and stage 1 through stage 4 chronic kidney disease, or unspecified chronic kidney disease (principal); J96.21 Acute and chronic respiratory failure with hypoxia; I50.23 Acute on chronic systolic (congestive) heart failure; J18.9 Pneumonia, unspecified organism; N17.0 Acute kidney failure with tubular necrosis; B37.0 Candidal stomatitis; N18.4 Chronic kidney disease, stage 4 (severe); N17.9 Acute kidney failure, unspecified; E87.1 Hypo-osmolality and hyponatremia; E87.3 Alkalosis; J44.0 Chronic obstructive pulmonary disease with (acute) lower respiratory infection; J44.1 Chronic obstructive pulmonary disease with (acute) exacerbation; J98.11 Atelectasis; Z99.81 Dependence on supplemental oxygen; D46.9 Myelodysplastic syndrome, unspecified; D63.1 Anemia in chronic kidney disease; E03.9 Hypothyroidism, unspecified; E09.22 Drug or chemical induced diabetes mellitus with diabetic chronic kidney disease; T38.0X5A Adverse effect of glucocorticoids and synthetic analogues, initial encounter; Z87.891 Personal history of nicotine dependence; E09.65 Drug or chemical induced diabetes mellitus with hyperglycemia; E61.1 Iron deficiency; E78.00 Pure hypercholesterolemia, unspecified; E78.5 Hyperlipidemia, unspecified; E87.8 Other disorders of electrolyte and fluid balance, not elsewhere classified; F41.9 Anxiety disorder, unspecified; I25.10 Atherosclerotic heart disease of native coronary artery without angina pectoris; I25.2 Old myocardial infarction; I25.5 Ischemic cardiomyopathy; I27.20 Pulmonary hypertension, unspecified; I34.0 Nonrheumatic mitral (valve) insufficiency; I44.0 Atrioventricular block, first degree; I45.10 Unspecified right bundle-branch block; I48.0 Paroxysmal atrial fibrillation; Z95.810 Presence of automatic (implantable) cardiac defibrillator; I95.9 Hypotension, unspecified; T50.2X5A Adverse effect of carbonic-anhydrase inhibitors, benzothiadiazides and other diuretics, initial encounter; Z66 Do not resuscitate; Z79.02 Long term (current) use of antithrombotics/antiplatelets; Z79.51 Long term (current) use of inhaled steroids; Z79.82 Long term (current) use of aspirin; Z79.890 Hormone replacement therapy; Z79.899 Other long term (current) drug therapy; Z80.3 Family history of malignant neoplasm of breast; Z80.52 Family history of malignant neoplasm of bladder; Z82.49 Family history of ischemic heart disease and other diseases of the circulatory system; Z86.14 Personal history of Methicillin resistant Staphylococcus aureus infection; Z95.5 Presence of coronary angioplasty implant and graft; Z53.09 Procedure and treatment not carried out because of other contraindication; Z88.8 Allergy status to other drugs, medicaments and biological substances; H26.9 Unspecified cataract; Z86.010 Personal history of colon polyps; I65.29 Occlusion and stenosis of unspecified carotid artery
CPT/HCPCS: 36415; 71045; 71046; 80048; 80053; 82565; 83540; 83550; 83605; 83735; 83880; 83930; 83935; 84145; 84300; 84484; 85025; 85379; 85610; 85730; 87040; 87070; 87205; 93005; 94640; 94760; 96365; 96366; 96367; 96375; 99285

== ENCOUNTER 2019-06-01 13:10 | Inpatient (IN) | payer MEDICARE, OTHER ==
[2019-06-01 14:34] LABS: Albumin 3.4 g/dL (3.5-5.0); Calcium 9.3 mg/dL (8.4-10.2); Potassium 5.1 mmol/L (3.5-5.1); Total Bilirubin 0.6 mg/dL (0.2-1.3); Total Protein 6.3 g/dL (6.3-8.2)
[2019-06-01 14:44] LABS: Anisocytosis Slight; Basophils % (A) 0 %; Eosinophils # (A) 0.1 k/uL (0-0.7); Eosinophils % (A) 1 %; HCT 26.2 % (39.0-53.0); HGB 7.8 gm/dL (13.0-17.5); Hypochromasia Moderate; Lymphocytes # (A) 0.4 k/uL (1.0-4.8); Lymphocytes % (A) 7 %; MCH 30.1 pg (25.0-35.0); MCHC 29.7 g/dL (31.0-37.0); MCV 101.4 fL (80.0-100.0); Macrocytosis Slight; Mean Platelet Volume 7.4; Monocytes # (A) 0.3 k/uL (0-1.0); Monocytes % (A) 6 %; Neutrophils # (A) 4.5 k/uL (1.3-7.7); Neutrophils % (A) 83 %; Platelet Count 243 k/uL (150-450); RBC 2.59 m/uL (4.30-5.90); RDW 16.3 % (11.5-15.5); WBC 5.5 k/uL (3.8-10.6)
[2019-06-01] MEDS ORDERED: IPRATROPIUM-ALBUTEROL 3 ML NEB INHALATION STA (15:39)
--- NOTE | 2019-06-01 15:50 | ED ---
General Adult HPI - General Chief complaint: Shortness of Breath Stated complaint: SOB Time Seen by Provider: 06/01/19 15:15 Source: patient, family Mode of arrival: wheelchair Limitations: no limitations - History of Present Illness Initial comments: Patient is a 69-year-old male with history of COPD and heart failure is presenting to emergency Department with a chief complaint of shortness of breath. Patient reports he developed shortness of breath yesterday. Patient does report dyspnea on exertion. Patient reports he was recently here 1 week a go and was treated for CHF. Patient had a Cardiac cath that was negative. The Reports the patient patient is currently on 2 L of oxygen at with nasal cannula at home. Patient denies any headaches, nausea vomiting diarrhea. Patient denies any night sweats fevers or chills. Patient denies a change in sputum production. is concerned the patient might have amiodarone-induced interstitial pneumonitis. - Related Data Home Medications Medication Instructions Recorded Confirmed Aspirin 81 mg PO DAILY@0700 09/04/15 06/01/19 Ferrous Sulfate [Iron (65 MG 325 mg PO BID@899,209910/04/15 06/01/19 Elemental)] Docusate [Colace] 100 mg PO DAILY PRN 12/13/17 06/01/19 Metoprolol Tartrate [Lopressor] 25 mg PO BID@899,209912/13/17 06/01/19 Levothyroxine Sodium [Synthroid] 175 mcg PO DAILY@0600 02/20/19 06/01/19 Amiodarone [Cordarone] 200 mg PO DAILY@69906/01/19 06/01/19 Atorvastatin [Lipitor] 80 mg PO HS@209906/01/19 06/01/19 Clopidogrel [Plavix] 75 mg PO DAILY@89906/01/19 06/01/19 Fluticasone/Salmeterol [Advair 1 puff PO RT-BID@899,209906/01/19 06/01/19 250-50 Diskus] Furosemide [Lasix] 40 mg PO DAILY@89906/01/19 06/01/19 hydrALAZINE HCL 12.5 mg PO TID@0600,1400,2200 06/01/19 06/01/19 Allergies Allergy/AdvReac Type Severity Reaction Status Date / Time haloperidol [From Haldol] AdvReac Confusion Verified 06/01/19 16:10 Review of Systems ROS Statement: Those systems with pertinent positive or pertinent negative responses have been documented in the HPI. ROS Other: All systems not noted in ROS Statement are negative. Past Medical History Past Medical History: Heart Failure, COPD, Hypertension, Myocardial Infarction ([place]), Renal Disease, Thyroid Disorder, Hypertension, Myocardial Infarction ([place]), Thyroid Disorder Additional Past Medical History / Comment(s): Coronary artery disease, history of severe ischemic cardiomyopathy with systolic heart failure and ejection fraction of 30-35%, sick sinus syndrome, history of coronary artery disease, hypothyroidism, cataracts, chronic anemia, chronic kidney disease, history of insertion of a biventricular dual-chamber AICD, paroxysmal atrial fibrillation, chronic anemia, hypertension Last Myocardial Infarction Date:: 06/24/15 History of Any Multi-Drug Resistant Organisms: MRSA Date of last positivie culture/infection: 10/02/15 MDRO Source:: Sacrum Past Surgical History: Heart Catheterization With Stent, Orthopedic Surgery, Pacemaker Additional Past Surgical History / Comment(s): 1996 L shoulder rotator cuff surgery, colonoscopy with benign polypectomy.heart stent x1, sacral wound debridement with wound vac in 09/2015 Past Anesthesia/Blood Transfusion Reactions: No Reported Reaction Additional Past Anesthesia/Blood Transfusion Reaction / Comment(s): Pt has never received blood. Date of Last Stent Placement:: 06/2015 Type of Cardiac Device: Permanent Pacemaker Device Placement Date:: 11/25/2016 Past Psychological History: No Psychological Hx Reported Smoking Status: Former smoker Past Alcohol Use History: None Reported Past Drug Use History: None Reported - Past Family History Father Family Medical History: Cancer, Coronary Artery Disease (CAD), Myocardial Infarction ([place]) Additional Family Medical History / Comment(s): Father at age 86yrs. He had a CABG. Bladder cancer. Mother Family Medical History: Cancer Additional Family Medical History / Comment(s): Mother in her 30's of breast cancer. General Exam Limitations: no limitations General appearance: alert, in no apparent distress Head exam: Present: atraumatic, normocephalic, normal inspection Eye exam: Present: normal appearance, PERRL, EOMI Pupils: Present: normal accommodation ENT exam: Present: normal exam, mucous membranes moist, normal external ear exam Neck exam: Present: normal inspection, full ROM Respiratory exam: Present: normal lung sounds bilaterally Cardiovascular Exam: Present: regular rate, normal rhythm, normal heart sounds Extremities exam: Present: normal inspection, full ROM Back exam: Present: normal inspection, full ROM Neurological exam: Present: alert, oriented X3 Psychiatric exam: Present: normal affect, normal mood Skin exam: Present: warm, intact, normal color Course Vital Signs 06/01/19 06/01/19 06/01/19 13:35 16:09 16:10 Temperature 98.1 F Pulse Rate 70 77 Respiratory 20 20 Rate Blood Pressure 99/58 O2 Sat by Pulse 95 Oximetry 06/01/19 06/01/19 16:22 16:54 Temperature Pulse Rate 78 81 Respiratory 16 Rate Blood Pressure 116/63 O2 Sat by Pulse 96 Oximetry Medical Decision Making - Medical Decision Making patient is 69-year-old male with history of COPD and heart failure is presenting to emergency Department with a chief complaint of shortness of breath. Patient has developed increased shortness of breath over the past few days. He uses DuoNeb today with some improvement. Patient does report a nonproductive cough but no fevers or chills. Patient was given a DuoNeb treatment here with 125 mg a site nausea. Patient does report improvement in symptoms. Patient doesn't have any chest pain. Troponins initially elevated at 0.05 but that appears to be somewhat of his baseline. It could be a result of the recent cardiac cath. EKG changes are similar to the previous EKG. Chest x-ray is negative myocardium megaly with interstitial changes possibly due to mild pulmonary vascular congestion. Worsening aeration in the right base. On physical examination patient does have crackles as a result of the heart failure. Patient also has bilateral lower extremity pitting edema but that is his baseline. Patient will be given 40 mg IV Lasix. Patient will be admitted for further medical management. Patient has been taking amiodarone for several years. states that she decreased his dose 100 mg of amiodarone per day. I have low suspicion that the patient has developed amiodarone-induced pneumonitis patient will be admitted for further medical management. Case discussed with . Admitting physician is Cardiology consulted. - Lab Data Result diagrams: 06/01/19 14:08 06/01/19 14:08 Lab Results 06/01/19 06/01/19 06/01/19 Range/Units 14:08 14:08 14:08 WBC 5.5 (3.8-10.6) k/uL RBC 2.59 L (4.30-5.90) m/uL Hgb 7.8 L (13.0-17.5) gm/dL Hct 26.2 L (39.0-53.0) % MCV 101.4 H (80.0-100.0) fL MCH 30.1 (25.0-35.0) pg MCHC 29.7 L (31.0-37.0) g/dL RDW 16.3 H (11.5-15.5) % Plt Count 243 (150-450) k/uL Neutrophils % 83 % Lymphocytes % 7 % Monocytes % 6 % Eosinophils % 1 % Basophils % 0 % Neutrophils # 4.5 (1.3-7.7) k/uL Lymphocytes # 0.4 L (1.0-4.8) k/uL Monocytes # 0.3 (0-1.0) k/uL Eosinophils # 0.1 (0-0.7) k/uL Basophils # 0.0 (0-0.2) k/uL Hypochromasia Moderate Anisocytosis Slight Macrocytosis Slight PT (9.0-12.0) sec INR (<1.2) APTT (22.0-30.0) sec Sodium 130 L (137-145) mmol/L Potassium 5.1 (3.5-5.1) mmol/L Chloride 84 L (98-107) mmol/L Carbon Dioxide 39 H (22-30) mmol/L Anion Gap 7 mmol/L BUN 37 H (9-20) mg/dL Creatinine 1.39 H (0.66-1.25) mg/dL Est GFR (CKD-EPI)AfAm 60 (>60 ml/min/1.73 sqM) Est GFR (CKD-EPI)NonAf 52 (>60 ml/min/1.73 sqM) Glucose 103 H (74-99) mg/dL Calcium 9.3 (8.4-10.2) mg/dL Magnesium (1.6-2.3) mg/dL Total Bilirubin 0.6 (0.2-1.3) mg/dL AST 32 (17-59) U/L ALT 22 (21-72) U/L Alkaline Phosphatase 51 (38-126) U/L Troponin I 0.050 H* (0.000-0.034) ng/mL NT-Pro-B Natriuret Pep pg/mL Total Protein 6.3 (6.3-8.2) g/dL Albumin 3.4 L (3.5-5.0) g/dL 06/01/19 06/01/19 06/01/19 Range/Units 14:08 14:08 14:08 WBC (3.8-10.6) k/uL RBC (4.30-5.90) m/uL Hgb (13.0-17.5) gm/dL Hct (39.0-53.0) % MCV (80.0-100.0) fL MCH (25.0-35.0) pg MCHC (31.0-37.0) g/dL RDW (11.5-15.5) % Plt Count (150-450) k/uL Neutrophils % % Lymphocytes % % Monocytes % % Eosinophils % % Basophils % % Neutrophils # (1.3-7.7) k/uL Lymphocytes # (1.0-4.8) k/uL Monocytes # (0-1.0) k/uL Eosinophils # (0-0.7) k/uL Basophils # (0-0.2) k/uL Hypochromasia Anisocytosis Macrocytosis PT 9.6 (9.0-12.0) sec INR 0.9 (<1.2) APTT 25.3 (22.0-30.0) sec Sodium (137-145) mmol/L Potassium (3.5-5.1) mmol/L Chloride (98-107) mmol/L Carbon Dioxide (22-30) mmol/L Anion Gap mmol/L BUN (9-20) mg/dL Creatinine (0.66-1.25) mg/dL Est GFR (CKD-EPI)AfAm (>60 ml/min/1.73 sqM) Est GFR (CKD-EPI)NonAf (>60 ml/min/1.73 sqM) Glucose (74-99) mg/dL Calcium (8.4-10.2) mg/dL Magnesium 2.0 (1.6-2.3) mg/dL Total Bilirubin (0.2-1.3) mg/dL AST (17-59) U/L ALT (21-72) U/L Alkaline Phosphatase (38-126) U/L Troponin I (0.000-0.034) ng/mL NT-Pro-B Natriuret Pep 06408 pg/mL Total Protein (6.3-8.2) g/dL Albumin (3.5-5.0) g/dL Disposition Clinical Impression: COPD exacerbation, Shortness of breath Disposition: ADMITTED IP TO THIS HOSP Condition: Stable Additional Instructions: Patient will be admitted Is patient prescribed a controlled substance at d/c from ED?: No Referrals: Jovanni Finney MD [Primary Care Provider] - 1-2 days Time of Disposition: 17:18
--- NOTE | 2019-06-01 15:57 | XR ---
EXAMINATION TYPE: XR chest 2V DATE OF EXAM: 06/01/2019 COMPARISON: 05/23/2019 HISTORY: 69-year-old male follow-up CHF/pneumonia TECHNIQUE: AP and lateral views FINDINGS: Heart mildly enlarged. Left anterior chest wall AICD generator with right atrial and right ventricula r leads. Diffuse interstitial opacities with confluent patchy right mid and lower lung density. No si zable effusion. IMPRESSION: 1. Similar mild cardiomegaly and interstitial changes, possible mild pulmonary vascular congestion. 2. Worsening aeration at the right base with airspace disease. Chronic for pneumonia.
[2019-06-01 16:22] LABS: INR 0.9 (<1.2); Partial Thromboplastin Time 25.3 sec (22.0-30.0); Prothrombin Time 9.6 sec (9.0-12.0)
[2019-06-01] MEDS ORDERED: methylPREDNISolone SOD SUCCI 125 MG/2 ML VIAL IV STA (17:07)
[2019-06-01] MEDS ORDERED: HYDROmorphone 1 MG/ML 1 ML SYRINGE IVP PRN (17:08)
[2019-06-01] MEDS ORDERED: FUROSEMIDE 10 MG/ML 4 ML VIAL IV STA (17:08)
[2019-06-01] MEDS ORDERED: NALOXONE 0.4 MG/ML 1 ML VIAL IV PRN (17:08)
[2019-06-01] MEDS ORDERED: HYDROmorphone 0.5 MG/0.5 ML SYRINGE IVP PRN (17:08)
[2019-06-01] MEDS ORDERED: SODIUM CHLORIDE 0.9% 1,000 ML IV SCH (17:15)
[2019-06-01] MEDS ORDERED: IPRATROPIUM-ALBUTEROL 3 ML NEB INHALATION PRN (20:30)
[2019-06-01] MEDS ORDERED: DOCUSATE 100 MG CAP PO PRN (23:00)
[2019-06-01] MEDS: FUROSEMIDE 40 MG TAB PO SCH (23:20)
[2019-06-02 01:13] LABS: Appearance,Urine Clear (Clear); Bilirubin,Urine Negative (Negative); Blood,Urine Negative (Negative); Color,Urine Yellow; Glucose,Urine (UA) Negative (Negative); Ketones,Urine Negative (Negative); Leukocyte Esterase,Urine Negative (Negative); Nitrite,Urine Negative (Negative); Protein,Urine Trace (Negative); Specific Gravity,Urine 1.008 (1.001-1.035); Urobilinogen,Urine <2.0 mg/dL (<2.0)
[2019-06-02] MEDS: IPRATROPIUM-ALBUTEROL 3 ML NEB INHALATION SCH ×6 (02:26→20:58)
[2019-06-02 07:22] LABS: Anisocytosis Slight; HCT 23.2 % (39.0-53.0); HGB 7.2 gm/dL (13.0-17.5); Hypochromasia Marked; MCH 31.8 pg (25.0-35.0); MCHC 31.2 g/dL (31.0-37.0); MCV 102.1 fL (80.0-100.0); Macrocytosis Moderate; Mean Platelet Volume 7.9; Platelet Count 264 k/uL (150-450); RBC 2.27 m/uL (4.30-5.90); RDW 17.1 % (11.5-15.5); WBC 2.8 k/uL (3.8-10.6)
[2019-06-02 07:37] LABS: Calcium 9.1 mg/dL (8.4-10.2)
[2019-06-02] MEDS: SYMBICORT 80-4.5 MCG INHALER INHALATION SCH ×2 (08:14→20:58)
[2019-06-02] MEDS: FUROSEMIDE 40 MG TAB PO SCH (08:22)
[2019-06-02] MEDS: FERROUS SULFATE 325 MG TAB PO SCH ×2 (08:22→20:59)
[2019-06-02] MEDS: CLOPIDOGREL 75 MG TAB PO SCH (08:22)
[2019-06-02] MEDS: METOPROLOL TARTRATE 25 MG TAB PO SCH ×2 (08:22→20:59)
[2019-06-02 10:06] VITALS: BMI 21.3
--- NOTE | 2019-06-02 11:02 | P.CONS ---
History of Present Illness - Reason for Consult Consult date: 06/02/19 hx Anemia Requesting physician: Jovanni Finney - Chief Complaint SOB - History of Present Illness Mr. Mota is a pleasant white male multiple medical problems who has been fol lowing with Dr. Chau as an outpatient for his chronic anemia. He was originally evaluated in September 2015 and who is referred to hematology for hemoglobin at 10.1 he was macrocytic with MCV of 107 he underwent a full workup which additional labs were negative other than the presence of 2 small monoclonal proteins are IgG kappa at 0.2 g/dL and IgG lambda at 0.1 g/dL he also underwent a bone marrow biopsy in February 2017 which did not show any significant hypocellular marrow or abnormality. 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 Pollard the office on 04/15/2019. Last Epogen was given on 04.16.19. He wears home oxygen and has multiple co-moridities including CKD Stage 3, CHF systolic failure, Parox A Fib. He recently presented to emergency with hypoxia (April 2019). Review of Systems Review of systemsA 14 point review of systems was assessed and completed and are all negative except for HPI Past Medical History Past Medical History: Heart Failure, COPD, Hypertension, Myocardial Infarction ([place]), Renal Disease, Thyroid Disorder, Hypertension, Myocardial Infarction ([place]), Thyroid Disorder Additional Past Medical History / Comment(s): Coronary artery disease, history of severe ischemic cardiomyopathy with systolic heart failure and ejection fraction of 30-35%, sick sinus syndrome, history of coronary artery disease, hypothyroidism, cataracts, chronic anemia, chronic kidney disease, history of insertion of a biventricular dual-chamber AICD, paroxysmal atrial fibrillation, chronic anemia, hypertension Last Myocardial Infarction Date:: 06/24/15 History of Any Multi-Drug Resistant Organisms: MRSA Year Discovered:: 10/02/15 MDRO Source:: Sacrum Past Surgical History: Heart Catheterization With Stent, Orthopedic Surgery, Pacemaker Additional Past Surgical History / Comment(s): 1996 L shoulder rotator cuff surgery, colonoscopy with benign polypectomy.heart stent x1, sacral wound ching ridement with wound vac in 09/2015 Past Anesthesia/Blood Transfusion Reactions: No Reported Reaction Additional Past Anesthesia/Blood Transfusion Reaction / Comm: Pt has never received blood. Date of Last Stent Placement:: 06/2015 Type of Cardiac Device: Permanent Pacemaker, AICD Device Placement Date:: 11/25/2016 Past Psychological History: No Psychological Hx Reported Additional Psychological History / Comment(s): . Smoking Status: Former smoker Past Alcohol Use History: None Reported Additional Past Alcohol Use History / Comment(s): Pt states he quit smoking 06/24/15 He started smoking in 1968 and was a 1ppd smoker. Past Drug Use History: None Reported - Past Family History Father Family Medical History: Cancer, Coronary Artery Disease (CAD), Myocardial I nfarction ([place]) Additional Family Medical History / Comment(s): Father at age 86yrs. He had a CABG. Bladder cancer. Mother Family Medical History: Cancer Additional Family Medical History / Comment(s): Mother in her 30's of breast cancer. Medications and Allergies Home Medications Medication Instructions Recorded Confirmed Type Aspirin 81 mg PO DAILY@0700 09/04/15 06/01/19 History Ferrous Sulfate [Iron (65 MG 325 mg PO BID@09,209910/04/15 06/01/19 History Elemental)] Docusate [Colace] 100 mg PO DAILY PRN 12/13/17 06/01/19 History Metoprolol Tartrate [Lopressor] 25 mg PO BID@09,209912/13/17 06/01/19 History Levothyroxine Sodium [Synthroid] 175 mcg PO DAILY@0600 02/20/19 06/01/19 History Amiodarone [Cordarone] 200 mg PO DAILY@69906/01/19 06/01/19 History Atorvastatin [Lipitor] 80 mg PO HS@209906/01/19 06/01/19 History Clopidogrel [Plavix] 75 mg PO DAILY@89906/01/19 06/01/19 History Fluticasone/Salmeterol [Advair 1 puff PO RT-BID@899,209906/01/19 06/01/19 History 250-50 Diskus] Furosemide [Lasix] 40 mg PO DAILY@89906/01/19 06/01/19 History hydrALAZINE HCL 12.5 mg PO TID@0600,1400,2200 06/01/19 06/01/19 History Allergies Allergy/AdvReac Type Severity Reaction Status Date / Time haloperidol [From Haldol] AdvReac Confusion Verified 06/01/19 16:10 Physical Exam Vitals: Vital Signs Temp Pulse Pulse Resp BP BP Pulse Ox 06/02/19 08:31 80 06/02/19 08:15 76 06/02/19 08:00 97.5 F L 89 18 117/77 97 06/02/19 04:27 97.6 F 86 18 117/64 96 06/02/19 02:40 82 06/02/19 02:29 97 06/02/19 02:28 82 06/01/19 23:52 20 06/01/19 23:21 83 20 107/56 92 L 06/01/19 22:14 98.5 F 91 16 108/58 91 L 06/01/19 21:30 98.7 F 89 20 114/77 89 L 06/01/19 20:50 85 06/01/19 20:39 89 06/01/19 18:36 83 16 105/69 92 L 06/01/19 18:00 84 L 06/01/19 16:54 81 16 116/63 96 06/01/19 16:22 78 06/01/19 16:10 20 06/01/19 16:09 77 06/01/19 13:35 98.1 F 70 20 99/58 95 Intake and Output 06/01/19 06/02/19 06/02/19 22:59 06:59 14:59 Output Total 20 270 Balance -20 -270 Output: Urine 20 270 Other: Voiding Method Urinal # Voids 1 Weight 61.8 kg General: Alert and Oriented x3, No Acute Distress Head: Normocytic, Atraumatic Neck: Supple Mouth: No Lesions, No Thrush Eyes: Non-sclerotic No Palpable cervical, supraclavicular, axillary adenopathy Heart: Regular Rate, Regular Rhythm Lungs: Clear to Ausculations, No Wheeze, No Rhonchi, Diminishe bilateral lower lobes, No increased respiratory effort noted Abdomen: Soft, Non-Distended, Non-Tended, BSx4 Extremities: No Edema, Equal Strength Neurological: No Focal Defects: No sensory or motor deficits noted Psych: Calm and cooperative Results CBC & Chem 7: 06/02/19 06:23 06/02/19 06:23 Labs: Abnormal Lab Results - Last 24 Hours (Table) 06/01/19 06/01/19 06/01/19 Range/Units 14:08 14:08 14:08 WBC (3.8-10.6) k/uL RBC 2.59 L (4.30-5.90) m/uL Hgb 7.8 L (13.0-17.5) gm/dL Hct 26.2 L (39.0-53.0) % MCV 101.4 H (80.0-100.0) fL MCHC 29.7 L (31.0-37.0) g/dL RDW 16.3 H (11.5-15.5) % Lymphocytes # 0.4 L (1.0-4.8) k/uL Sodium 130 L (137-145) mmol/L Chloride 84 L (98-107) mmol/L Carbon Dioxide 39 H (22-30) mmol/L BUN 37 H (9-20) mg/dL Creatinine 1.39 H (0.66-1.25) mg/dL Glucose 103 H (74-99) mg/dL Troponin I 0.050 H* (0.000-0.034) ng/mL Albumin 3.4 L (3.5-5.0) g/dL Urine Protein (Negative) 06/01/19 06/02/19 06/02/19 Range/Units 19:52 01:00 01:29 WBC (3.8-10.6) k/uL RBC (4.30-5.90) m/uL Hgb (13.0-17.5) gm/dL Hct (39.0-53.0) % MCV (80.0-100.0) fL MCHC (31.0-37.0) g/dL RDW (11.5-15.5) % Lymphocytes # (1.0-4.8) k/uL Sodium (137-145) mmol/L Chloride (98-107) mmol/L Carbon Dioxide (22-30) mmol/L BUN (9-20) mg/dL Creatinine (0.66-1.25) mg/dL Glucose (74-99) mg/dL Troponin I 0.058 H* 0.060 H* (0.000-0.034) ng/mL Albumin (3.5-5.0) g/dL Urine Protein Trace H (Negative) 06/02/19 06/02/19 Range/Units 06:23 06:23 WBC 2.8 L (3.8-10.6) k/uL RBC 2.27 L (4.30-5.90) m/uL Hgb 7.2 L (13.0-17.5) gm/dL Hct 23.2 L (39.0-53.0) % MCV 102.1 H (80.0-100.0) fL MCHC (31.0-37.0) g/dL RDW 17.1 H (11.5-15.5) % Lymphocytes # (1.0-4.8) k/uL Sodium 130 L (137-145) mmol/L Chloride 83 L (98-107) mmol/L Carbon Dioxide 38 H (22-30) mmol/L BUN 40 H (9-20) mg/dL Creatinine 1.53 H (0.66-1.25) mg/dL Glucose 149 H (74-99) mg/dL Troponin I (0.000-0.034) ng/mL Albumin (3.5-5.0) g/dL Urine Protein (Negative) Chest x-ray: report reviewed Assessment and Plan Plan: Assessment and Recommendations: Exacerbation of CHF: - Cardiology and primary team Chronic Anemia secondary to chronic inflammation, Chronic Kidney disease and possible component low grade MDS - Receives 20K of Procrit in office every 3 weeks - Anemia has been worsening therefore will check iron saturation to confirm above 15%, - Will confirm last date Epogen and restart CKD stage 3 : - Nephrology <anagment Acute on Chronic Hypoxic respiratory Failure: - [place] to be secondary to CKD and CHF - With known Afib would be reasonable to assess for PE, VQ scan with renal function, if hypoxia does not improve: LEATHA Isabel
[2019-06-02] MEDS ORDERED: DARBEPOETIN ALFA 60 MCG/0.3 ML SYRINGE SQ SCH (12:00)
--- NOTE | 2019-06-02 12:19 | CONS ---
CONSULTATION REASON FOR CONSULT: Renal failure. HISTORY OF PRESENT ILLNESS: Patient is a 69-year-old male who was admitted to the hospital with complaints of shortness of breath. He does have underlying history of CHF which is systolic and cardiomyopathy along with COPD. Last admission, patient was noted to be volume depleted and his diuretics were decreased. However, it appears that he started to get more short of breath over the past couple of days or so. He did have packed RBCs transfusion on his last admission as well. The patient was recently discharged on 05/24/2019. He denies any chest pains, nausea, vomiting. Troponin was borderline elevated. Serum creatinine 1.39 yesterday. Today it is at 1.53. Previous labs show creatinine of about 1.6 to 1.5 at baseline with last creatinine 2.6 on 05/24/2019. Currently, patient is maintained on oral Lasix. His chest x-ray does show pleural effusion, vascular congestion, although it is not very significant as previously. PAST MEDICAL HISTORY: CKD stage 3, CHF systolic, COPD, hypertension, history of [place], coronary artery disease, cardiomyopathy EF 30% to 35%, hypothyroidism. PAST SURGICAL HISTORY: Cardiac catheterization, coronary stent placement, pacemaker placement, left shoulder rotator cuff surgery, colonoscopy with polypectomy, wound debridement with wound VAC. SOCIAL HISTORY: Patient is a former smoker. No history of drug abuse or alcohol abuse. MEDICATIONS: Medications prior to admission included iron, Colace, metoprolol, Synthroid, Cordarone, Lipitor, Plavix, Lasix, hydralazine. ALLERGIES: Allergies include HALDOL, which causes confusion. REVIEW OF SYSTEMS: As per HPI. Other systems negative. PHYSICAL EXAMINATION: On examination, patient is comfortable, awake. He is not in any acute distress. Blood pressure is 101/63, heart rate 78 per minute. Patient is afebrile. EXAMINATION OF THE HEART: S1, S2. EXAMINATION OF THE LUNGS: Bilateral breath sounds are heard. Shows crackles in the bases. Abdomen is soft, nontender. Examination of the lower extremities shows no significant edema. S[employer]IOR SOFTWARE TE[employer] exam is grossly intact. LABS: Labs show sodium 130, potassium 5.0, CO2 of 38. BUN 40, serum creatinine 1.53. Hemoglobin 7.2 g/dL. ASSESSMENT: 1. Chronic kidney disease NKF stage 3, secondary to cardiorenal syndrome and nephrosclerosis. Baseline creatinine appears to be around 1.5. His creatinine was as low as 1.39 yesterday. However, patient does have evidence of volume overload. I will maintain him on IV Lasix for at least one day. The volume overload is not as bad as it has been on previous admissions. 2. Hypervolemic hyponatremia. 3. Borderline elevated troponins. 4. Metabolic alkalosis secondary to diuretics as well as chronic obstructive pulmonary disease. 5. Anemia with no active bleeding noted. The patient received packed RBCs transfusion last admission. His iron saturation was very low at 8.9 last admission, I believe patient did get IV iron. I will repeat another iron level and if it is low, we will repeat IV iron administration and maintain patient on Procrit as well. PLAN: Change Lasix to IV. Add Aranesp and repeat iron profile. If iron deficiency persists in spite of IV iron, patient should have a GI workup done. MMODL / IJN: [id number] /
--- NOTE | 2019-06-02 13:57 | P.CRDCN ---
History of Present Illness Consult date: 06/02/19 History of present illness: This is a 69-year-old gentleman with history of coronary artery disease with a prior left main stenting. Carotid disease, paroxysmal atrial fibrillation, ischemic cardiomyopathy status post AICD implantation and also history of episodes of ventricular tachycardia who comes here with the recurrence of shortness of breath and evidence of CHF. His proBNP is 15,000. He was recently evaluated at [facility] for possible LVAD. He had a right heart catheterization and he was told that he doesn't have significant CHF and his symptoms could be pulmonary in nature. Patient started on IV Lasix and he seemed to be feeling better. His troponins are mildly elevated but not consistent with acute coronary syndrome. He has been on amiodarone for control of his atrial fibrillation and also because of ventricular tachycardia. His was questioning if amiodarone could be causing some of the symptoms. A pulmonary consult is requested to see if there is any possibility of his symptoms of being pulmonary or related to amiodarone toxicity. Meanwhile we'll continue current medical therapy. I'll also resume small dose of hydralazine as tolerated. Past Medical History Past Medical History: Heart Failure, COPD, Hypertension, Myocardial Infarction ([place]), Renal Disease, Thyroid Disorder, Hypertension, Myocardial Infarction ([place]), Thyroid Disorder Additional Past Medical History / Comment(s): Coronary artery disease, history of severe ischemic cardiomyopathy with systolic heart failure and ejection fraction of 30-35%, sick sinus syndrome, history of coronary artery disease, hypothyroidism, cataracts, chronic anemia, chronic kidney disease, history of insertion of a biventricular dual-chamber AICD, paroxysmal atrial fibrillation, chronic anemia, hypertension Last Myocardial Infarction Date:: 06/24/15 History of Any Multi-Drug Resistant Organisms: MRSA Date of last positivie culture/infection: 10/02/15 MDRO Source:: Sacrum Past Surgical History: Heart Catheterization With Stent, Orthopedic Surgery, Pacemaker Additional Past Surgical History / Comment(s): 1996 L shoulder rotator cuff surgery, colonoscopy with benign polypectomy.heart stent x1, sacral wound debridement with wound vac in 09/2015 Past Anesthesia/Blood Transfusion Reactions: No Reported Reaction Additional Past Anesthesia/Blood Transfusion Reaction / Comment(s): Pt has never received blood. Date of Last Stent Placement:: 06/2015 Type of Cardiac Device: Permanent Pacemaker, AICD Device Placement Date:: 11/25/2016 Past Psychological History: No Psychological Hx Reported Additional Psychological History / Comment(s): . Smoking Status: Former smoker Past Alcohol Use History: None Reported Additional Past Alcohol Use History / Comment(s): Pt states he quit smoking 06/24/15 He started smoking in 1968 and was a 1ppd smoker. Past Drug Use History: None Reported - Past Family History Father Family Medical History: Cancer, Coronary Artery Disease (CAD), Myocardial Infarction ([place]) Additional Family Medical History / Comment(s): Father at age 86yrs. He had a CABG. Bladder cancer. Mother Family Medical History: Cancer Additional Family Medical History / Comment(s): Mother in her 30's of breast cancer. Medications and Allergies Home Medications Medication Instructions Recorded Confirmed Type Aspirin 81 mg PO DAILY@0700 09/04/15 06/01/19 History Ferrous Sulfate [Iron (65 MG 325 mg PO BID@0900,2100 10/04/15 06/01/19 History Elemental)] Docusate [Colace] 100 mg PO DAILY PRN 12/13/17 06/01/19 History Metoprolol Tartrate [Lopressor] 25 mg PO BID@0900,2100 12/13/17 06/01/19 History Levothyroxine Sodium [Synthroid] 175 mcg PO DAILY@0600 02/20/19 06/01/19 History Amiodarone [Cordarone] 200 mg PO DAILY@69906/01/19 06/01/19 History Atorvastatin [Lipitor] 80 mg PO HS@209906/01/19 06/01/19 History Clopidogrel [Plavix] 75 mg PO DAILY@89906/01/19 06/01/19 History Fluticasone/Salmeterol [Advair 1 puff PO RT-BID@0900,209906/01/19 06/01/19 History 250-50 Diskus] Furosemide [Lasix] 40 mg PO DAILY@89906/01/19 06/01/19 History hydrALAZINE HCL 12.5 mg PO TID@0600,1400,2200 06/01/19 06/01/19 History Allergies Allergy/AdvReac Type Severity Reaction Status Date / Time haloperidol [From Haldol] AdvReac Confusion Verified 06/01/19 16:10 Physical Exam Vitals: Vital Signs Temp Pulse Pulse Resp BP BP Pulse Ox 06/02/19 11:40 76 06/02/19 11:28 76 06/02/19 11:07 78 06/02/19 11:05 97.5 F L 78 18 101/63 98 06/02/19 08:31 80 06/02/19 08:15 76 06/02/19 08:00 97.5 F L 89 18 117/77 97 06/02/19 04:27 97.6 F 86 18 117/64 96 06/02/19 02:40 82 06/02/19 02:29 97 06/02/19 02:28 82 06/01/19 23:52 20 06/01/19 23:21 83 20 107/56 92 L 06/01/19 22:14 98.5 F 91 16 108/58 91 L 06/01/19 21:30 98.7 F 89 20 114/77 89 L 06/01/19 20:50 85 06/01/19 20:39 89 06/01/19 18:36 83 16 105/69 92 L 06/01/19 18:00 84 L 06/01/19 16:54 81 16 116/63 96 06/01/19 16:22 78 06/01/19 16:10 20 06/01/19 16:09 77 Intake and Output 06/01/19 06/02/19 06/02/19 22:59 06:59 14:59 Intake Total 444 Output Total 20 270 Balance -20 -270 444 Intake: Oral 444 Output: Urine 20 270 Other: Voiding Method Urinal # Voids 1 Weight 61.8 kg 61.8 kg GENERAL EXAM: Patient is alert and oriented and doesn't appear to be in any acute distress HEENT: Normocephalic. Normal reaction of pupils, equal size, normal range of extraocular motion. No erythema or exudates in the throat. NECK: No masses, no nuchal rigidity. CHEST: No chest wall deformity. LUNGS: Diminished breath sounds with few rales HEART: S1 and S2 normal with no audible mumurs or gallops. Regular rhythm, femorals equal on both sides.. ABDOMEN: No hepatosplenomegaly, normal bowel sounds, no guarding or rigidity. SKIN: No rashes CENTRAL NERVOUS SYSTEM: No focal deficits. EXTREMITIES: Resolving edema Results 06/02/19 06:23 06/02/19 06:23 Cardiac Enzymes 06/01/19 06/01/19 06/01/19 Range/Units 14:08 14:08 19:52 AST 32 (17-59) U/L Troponin I 0.050 H* 0.058 H* (0.000-0.034) ng/mL 06/02/19 Range/Units 01:29 AST (17-59) U/L Troponin I 0.060 H* (0.000-0.034) ng/mL Coagulation 06/01/19 Range/Units 14:08 PT 9.6 (9.0-12.0) sec APTT 25.3 (22.0-30.0) sec CBC 06/01/19 06/02/19 Range/Units 14:08 06:23 WBC 5.5 2.8 L (3.8-10.6) k/uL RBC 2.59 L 2.27 L (4.30-5.90) m/uL Hgb 7.8 L 7.2 L (13.0-17.5) gm/dL Hct 26.2 L 23.2 L (39.0-53.0) % Plt Count 243 264 (150-450) k/uL Comprehensive Metabolic Panel 06/01/19 06/02/19 Range/Units 14:08 06:23 Sodium 130 L 130 L (137-145) mmol/L Potassium 5.1 5.0 (3.5-5.1) mmol/L Chloride 84 L 83 L (98-107) mmol/L Carbon Dioxide 39 H 38 H (22-30) mmol/L BUN 37 H 40 H (9-20) mg/dL Creatinine 1.39 H 1.53 H (0.66-1.25) mg/dL Glucose 103 H 149 H (74-99) mg/dL Calcium 9.3 9.1 (8.4-10.2) mg/dL AST 32 (17-59) U/L ALT 22 (21-72) U/L Alkaline Phosphatase 51 (38-126) U/L Total Protein 6.3 (6.3-8.2) g/dL Albumin 3.4 L (3.5-5.0) g/dL Current Medications Generic Name Dose Route Start Last Admin Trade Name Freq PRN Reason Stop Dose Admin Albuterol/Ipratropium 3 ml 06/01/19 20:30 06/01/19 20:39 Duoneb 0.5 Mg-3 Mg/3 Ml Soln INHALATION 3 ml RT-Q4H PRN Administration Shortness Of Breath Or Wheezing Albuterol/Ipratropium 3 ml 06/02/19 00:00 06/02/19 11:28 Duoneb 0.5 Mg-3 Mg/3 Ml Soln INHALATION 3 ml RT-Q4H [facility] Administration Atorvastatin Calcium 80 mg 06/02/19 21:00 Lipitor PO HS@2099 [facility] Budesonide/Formoterol Fumarate 2 puff 06/02/19 09:00 06/02/19 08:14 Symbicort 80-4.5 Mcg Inhaler INHALATION 2 puff RT-BID@899,2099 [facility] Administration Clopidogrel Bisulfate 75 mg 06/02/19 09:00 06/02/19 08:22 Plavix PO 75 mg DAILY@0900 [facility] Administration Darbepoetin Gagandeep 60 mcg 06/02/19 12:00 06/02/19 12:46 Aranesp SQ 60 mcg Q7D [facility] Administration Docusate Sodium 100 mg 06/01/19 23:00 Colace PO DAILY PRN Constipation Ferrous Sulfate 325 mg 06/02/19 09:00 06/02/19 08:22 Feosol PO 325 mg BID@899,2099 [facility] Administration Furosemide 40 mg 06/02/19 21:00 Lasix IV Q12HR [facility] Hydralazine HCl 10 mg 06/02/19 21:00 Apresoline PO BID [facility] Hydromorphone HCl 0.5 mg 06/01/19 17:08 Dilaudid IVP Q3HR PRN Moderate Pain Hydromorphone HCl 1 mg 06/01/19 17:08 Dilaudid IVP Q3HR PRN Severe Pain Levothyroxine Sodium 100 mcg 06/03/19 06:30 Synthroid PO DAILY@0630 [facility] Levothyroxine Sodium 75 mcg 06/03/19 06:30 Synthroid PO DAILY@0630 [facility] Metoprolol Tartrate 25 mg 06/02/19 09:00 06/02/19 08:22 Lopressor PO 25 mg BID@899,2099 [facility] Administration Naloxone HCl 0.2 mg 06/01/19 17:08 Narcan IV Q2M PRN Opioid Reversal Intake and Output 06/01/19 06/02/19 06/02/19 22:59 06:59 14:59 Intake Total 444 Output Total 20 270 Balance -20 270 444 Intake: Oral 444 Output: Urine 20 270 Other: Voiding Method Urinal # Voids 1 Weight 61.8 kg 61.8 kg Patient Weight 06/03/19 06:59 Weight 61.8 kg 06/02/19 06:23 06/02/19 06:23 EKG Interpretations (text) Sinus rhythm with a right bundle-branch block Assessment and Plan Assessment: This patient is admitted with exacerbation of CHF. His proBNP is 15,000. Patient is Being treated with IV Lasix. The pulmonic consult was also requested. Continue current medical therapy. We'll follow
--- NOTE | 2019-06-02 14:29 | P.HPIM ---
History of Present Illness H&P Date: 06/02/19 (Short of breath patient discharged from [facility] 2 days before current admission) Chief Complaint: Short of breath, recent discharge from [facility] after right Admission history and physical date of service 06/02/2019. Dictated by Dr. Sharmin Alfaro FACP. Chief complaint Patient presented to the emergency room with the shortness of breath within the lost 1-2 days post discharge from [facility]. history of present illness. 69 years old white male. . Patient discharged from [facility] from the congestive heart failure cardiac Center, they did the right sided cardiac catheterization and the told his that patient has no problem no congestive heart failure and it could be from his pulmonary fibrosis, and they said they did discuss it with Dr. Lindo but we don't have any records available for the data that they have. Patient also is not eligible for any advances of treatment. Past medical history: Patient was admitted to the hospital in [place] with the underlying also will medical problem, was 1 week ago after trial of various treatment with the multiple specialists, senior cost estimator team decided to transfer patient to [facility] and the binder caser didn't call me in the office after I did see the patient for dictation of the discharge, Dr. Gomes nurse practitioner has already made the arrangement was had a forward for transfer, and patient transferred then. Subsists subsequently in [facility] congestive heart failure that they did the right cardiac catheterization and they told him he does not have congestive heart failure and may be something else and the lung as pulmonary fibrosis and a hand cementer dictation to amiodarone as the cause of this problem and we will be holding the amiodarone until the cardiology decided if he and up continue with that or thought and he may order it up to the senior cost estimator, also will consult to the pulmonary Dr. Hou who has been seen the patient before several time and this is his fourth admission this months and his recommendation was on the previous record and he felt that his for congestive heart failure. And it could be a combination of multi-factorial. Patient had ischemic cardiomyopathy with the ejection fraction. COPD, pulmonary fibrosis, pulmonary hypertension. Chronic atrial fibrillation stable with the paroxysmal. And he is on Plavix per cardiology. Hypothyroidism stable with the current medication. Multiple admission to the hospital 4th admission to the hospital. Anemia. Anemia of chronic disease, patient received Procrit by Dr. Pollard hematology oncology every 3 weeks today they did see him and they given 1, patient has underlying myelodysplastic syndrome with the macrocytosis and a hypochromasia and leukopenia. History of coronary artery disease and atherosclerotic heart disease and hyperlipidemia. Family history: has son and a daughter. Ex-smoker. No alcohol intake. Review of system: Reviewed the 14 bullet with the main concern could not breathe at home pulmonary problem with the association of congestive heart failure has not been the results and he has been seen by the specialist the admission. No other detailed symptoms. Added history: Heart failure, COPD, hypertension, hypotension, myocardial infarction, chronic kidney disease with acute kidney injury intermittently. Thyroid disorder cardio renal syndrome, AICD, paroxysmal atrial fibrillation, cataract extraction, cardiomyopathy, coronary artery disease, Last MRI 06/24/2015 cardiac cath and stent and the pacemaker, history of co lonoscopy 1 stent. Patient received 1 units of blood and his blood count 8.6 however patient on this admission dropped down to 7.2 with the underlying myelodysplastic syndrome. On the physical examination on admission in the emergency room indicating that temperature 98.1 pulse rate was 70/m his blood pressure was 99/58 with the underlying hypotension. Could be associated with the hydralazine that has been started in [facility] which has been held until the recommendation of the senior cost estimator. Physical exam: Head was normocephalic atraumatic, pupil was equal reactive, pale conjunctiva with the anemia, oropharynx with dangerous, hearing normal. Neck was supple no thyromegaly, and JVD was present. Chest increased anteroposterior diameter with the hyperinflation. Auscultation is a rhonchi and rales two thirds of the lung with the possibility of association with congestive heart failure but also pulmonary fibrosis, the chest x-ray was questionable is a 14-year-old atelectasis versus a new process will see the opinion of the pulmonary and the plan for treatment and if needed an tibiotic with the currently his white count is 2.8 with a negative UA. Heart PMI in the fifth outside midclavicular line currently normal sinus rhythm with a history of chronic atrial fibrillation I could not hear any gallop he had murmurs. With a history of pulmonary hypertension. And the question about amiodarone causing fibrosis of the lung by the fourth. Abdomen: Soft positive bowel sound no nausea no vomiting no diarrhea or constipation. Extremities: He has ankle edema 1+ positive pulses with perfusion. Neurological examination grossly intact with vision lateralizing weakness. Assessment: #[address] Kyle today and that he increased his Lasix with the elevated pro-BNP. #2 abnormal troponin evaluated with a repeat and the with the underlying coronary artery disease. #3 underlying pulmonary fibrosis with pulmonary hypertension and right sided versus left sided congestive heart failure. #4 the question of [facility] admission and discharge and we don't have no report and they told the patient that his shortness of breath not probable congestive heart failure from his lung. #5 chronic kidney disease stage III however with the diuresis is a goes off to stage IV. #6 chronic anemia, transfused 1 unit packed RBCs at [facility], however patient drop again from 8.6 in the had a forward to 7.2 within the last 3 days. #7 myelodysplastic syndrome with leukopenia. #8 hypotension on admission for the possibility associated with the hydralazine that was started in [facility] after his right sided cardiac cath. Plan: #1 I would not start amiodarone, atenolol cardiology indicate that or he was admitted himself because of this association with pulmonary fibrosis as informant the family by [facility]. #2 hypotension on admission which improved with the withholding the hydralazine. #3 will be waiting for the cardiology input and the treatment as well as the pulmonary and input and if he also needed to treat the hypertension or pulmonary fibrosis or the infiltrate which could be old fibrous tissue. Laboratories WBC 2.8, hemoglobin 7.2 hematocrit 23.2 platelet count 264 markedly hypochromasia and moderate macro cytosis MCV 102.1. Sodium 1:30 with the underlying hyponatremia and possibility of diabetes motion type because of the congestive heart failure..050 Troponin 10.050, 0.058, 0.060 Protocol serotonin: 0.17H. BNP 15,900. UA is negative. The BUN 37/creatinine 1.39 on admission, today 06/02/2019 BUN 40/creatinine 1.53 with the increase the diuretic associated with a cardiorenal syndrome as well. Normal liver enzyme. Past Medical History Past Medical History: Heart Failure, COPD, Hypertension, Myocardial Infarction (NH), Renal Disease, Thyroid Disorder, Hypertension, Myocardial Infarction (NH), Thyroid Disorder Additional Past Medical History / Comment(s): Coronary artery disease, history of severe ischemic cardiomyopathy with systolic heart failure and ejection fraction of 30-35%, sick sinus syndrome, history of coronary artery disease, hypothyroidism, cataracts, chronic anemia, chronic kidney disease, history of insertion of a biventricular dual-chamber AICD, paroxysmal atrial fibrillation, chronic anemia, hypertension Last Myocardial Infarction Date:: 06/24/15 History of Any Multi-Drug Resistant Organisms: MRSA Date of last positivie culture/infection: 10/02/15 MDRO Source:: Sacrum Past Surgical History: Heart Catheterization With Stent, Orthopedic Surgery, Pacemaker Additional Past Surgical History / Comment(s): 1996 L shoulder rotator cuff surgery, colonoscopy with benign polypectomy.heart stent x1, sacral wound debridement with wound vac in 09/2015 Past Anesthesia/Blood Transfusion Reactions: No Reported Reaction Additional Past Anesthesia/Blood Transfusion Reaction / Comment(s): Pt has never received blood. Date of Last Stent Placement:: 06/2015 Type of Cardiac Device: Permanent Pacemaker, AICD Device Placement Date:: 11/25/2016 Past Psychological History: No Psychological Hx Reported Additional Psychological History / Comment(s): . Smoking Status: Former smoker Past Alcohol Use History: None Reported Additional Past Alcohol Use History / Comment(s): Pt states he quit smoking 06/24/15 He started smoking in 1968 and was a 1ppd smoker. Past Drug Use History: None Reported - Past Family History Father Family Medical History: Cancer, Coronary Artery Disease (CAD), Myocardial Infarction (NH) Additional Family Medical History / Comment(s): Father at age 86yrs. He had a CABG. Bladder cancer. Mother Family Medical History: Cancer Additional Family Medical History / Comment(s): Mother in her 30's of breast cancer. Medications and Allergies Home Medications Medication Instructions Recorded Confirmed Type Aspirin 81 mg PO DAILY@0700 09/04/15 06/01/19 History Ferrous Sulfate [Iron (65 MG 325 mg PO BID@0900,209910/04/15 06/01/19 History Elemental)] Docusate [Colace] 100 mg PO DAILY PRN 12/13/17 06/01/19 History Metoprolol Tartrate [Lopressor] 25 mg PO BID@0900,209912/13/17 06/01/19 History Levothyroxine Sodium [Synthroid] 175 mcg PO DAILY@0600 02/20/19 06/01/19 History Amiodarone [Cordarone] 200 mg PO DAILY@69906/01/19 06/01/19 History Atorvastatin [Lipitor] 80 mg PO HS@209906/01/19 06/01/19 History Clopidogrel [Plavix] 75 mg PO DAILY@89906/01/19 06/01/19 History Fluticasone/Salmeterol [Advair 1 puff PO RT-BID@0900,209906/01/19 06/01/19 History 250-50 Diskus] Furosemide [Lasix] 40 mg PO DAILY@89906/01/19 06/01/19 History hydrALAZINE HCL 12.5 mg PO TID@0600,1400,2200 06/01/19 06/01/19 History Allergies Allergy/AdvReac Type Severity Reaction Status Date / Time haloperidol [From Haldol] AdvReac Confusion Verified 06/01/19 16:10 Physical Exam Vitals: Vital Signs Temp Pulse Pulse Resp BP BP Pulse Ox 06/02/19 11:40 76 06/02/19 11:28 76 06/02/19 11:07 78 06/02/19 11:05 97.5 F L 78 18 101/63 98 06/02/19 08:31 80 06/02/19 08:15 76 06/02/19 08:00 97.5 F L 89 18 117/77 97 06/02/19 04:27 97.6 F 86 18 117/64 96 06/02/19 02:40 82 06/02/19 02:29 97 06/02/19 02:28 82 06/01/19 23:52 20 06/01/19 23:21 83 20 107/56 92 L 06/01/19 22:14 98.5 F 91 16 108/58 91 L 06/01/19 21:30 98.7 F 89 20 114/77 89 L 06/01/19 20:50 85 06/01/19 20:39 89 06/01/19 18:36 83 16 105/69 92 L 06/01/19 18:00 84 L 06/01/19 16:54 81 16 116/63 96 06/01/19 16:22 78 06/01/19 16:10 20 06/01/19 16:09 77 Intake and Output 06/01/19 06/02/19 06/02/19 22:59 06:59 14:59 Intake Total 444 Output Total 20 270 Balance -20 270 444 Intake: Oral 444 Output: Urine 20 270 Other: Voiding Method Urinal # Voids 1 Weight 61.8 kg 61.8 kg Results CBC & Chem 7: 06/02/19 06:23 06/02/19 06:23 Labs: Abnormal Lab Results - Last 24 Hours (Table) 06/01/19 06/01/19 06/01/19 Range/Units 14:08 14:08 14:08 WBC (3.8-10.6) k/uL RBC 2.59 L (4.30-5.90) m/uL Hgb 7.8 L (13.0-17.5) gm/dL Hct 26.2 L (39.0-53.0) % MCV 101.4 H (80.0-100.0) fL MCHC 29.7 L (31.0-37.0) g/dL RDW 16.3 H (11.5-15.5) % Lymphocytes # 0.4 L (1.0-4.8) k/uL Sodium 130 L (137-145) mmol/L Chloride 84 L (98-107) mmol/L Carbon Dioxide 39 H (22-30) mmol/L BUN 37 H (9-20) mg/dL Creatinine 1.39 H (0.66-1.25) mg/dL Glucose 103 H (74-99) mg/dL Troponin I 0.050 H* (0.000-0.034) ng/mL Albumin 3.4 L (3.5-5.0) g/dL Procalcitonin (0.02-0.09) ng/mL Urine Protein (Negative) 06/01/19 06/02/19 06/02/19 Range/Units 19:52 01:00 01:29 WBC (3.8-10.6) k/uL RBC (4.30-5.90) m/uL Hgb (13.0-17.5) gm/dL Hct (39.0-53.0) % MCV (80.0-100.0) fL MCHC (31.0-37.0) g/dL RDW (11.5-15.5) % Lymphocytes # (1.0-4.8) k/uL Sodium (137-145) mmol/L Chloride (98-107) mmol/L Carbon Dioxide (22-30) mmol/L BUN (9-20) mg/dL Creatinine (0.66-1.25) mg/dL Glucose (74-99) mg/dL Troponin I 0.058 H* 0.060 H* (0.000-0.034) ng/mL Albumin (3.5-5.0) g/dL Procalcitonin (0.02-0.09) ng/mL Urine Protein Trace H (Negative) 06/02/19 06/02/19 06/02/19 Range/Units 06:23 06:23 06:23 WBC 2.8 L (3.8-10.6) k/uL RBC 2.27 L (4.30-5.90) m/uL Hgb 7.2 L (13.0-17.5) gm/dL Hct 23.2 L (39.0-53.0) % MCV 102.1 H (80.0-100.0) fL MCHC (31.0-37.0) g/dL RDW 17.1 H (11.5-15.5) % Lymphocytes # (1.0-4.8) k/uL Sodium 130 L (137-145) mmol/L Chloride 83 L (98-107) mmol/L Carbon Dioxide 38 H (22-30) mmol/L BUN 40 H (9-20) mg/dL Creatinine 1.53 H (0.66-1.25) mg/dL Glucose 149 H (74-99) mg/dL Troponin I (0.000-0.034) ng/mL Albumin (3.5-5.0) g/dL Procalcitonin 0.17 H (0.02-0.09) ng/mL Urine Protein (Negative) Thrombosis Risk Factor Assmnt - Choose All That Apply Each Factor Represents 1 point: Abnormal pulmonary function (COPD) Other Risk Factors: Yes Each Risk Factor Represents 2 Points: Age 61-74 years Other congenital or acquired thrombophilia - If yes, enter type in comment: No Thrombosis Risk Factor Assessment Total Risk Factor Score: 3 Thrombosis Risk Factor Assessment Level: Moderate Risk
--- NOTE | 2019-06-02 16:54 | P.CNPUL ---
History of Present Illness Consult date: 06/02/19 Requesting physician: Jovanni Finney Reason for consult: dyspnea Chief complaint: Shortness of breath History of present illness: This is 69-year-old white male patient who is well-known to our service from his previous admissions for complications related to his chronic congestive heart failure with systolic dysfunction and baseline ejection fraction of 30- 35%, severe stage IV COPD with a baseline FEV1 of 22% of predicted on home oxygen. Patient has multiple medical problems including above-mentioned cardiomyopathy, sick sinus syndrome status post dual-chamber AICD implantation, hypertension, myocardial infarction, coronary artery disease with previous stenting, chronic kidney disease, hypothyroidism, paroxysmal atrial fibrillation, chronic anemia, and former history of smoking. 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 Patient was treated at the [facility] and into the patient's they performed a right heart cath, and told patient and his family that they felt the patient's shortness of breath was not felt to be related to his cardiac status, and suggested that could be possibly related to his severe COPD and possibility of pulmonary fibrosis. However we do not have the records from [facility], and we are getting a verbal report from patient's . On 06/01/2019 patient presented to the hospital with complaints of worsening shortness of breath, worsening dyspnea on exertion. He denied any fever, denied night sweats, denied any chills, denied any chest pain. No cough or sputum production. Chest x-ray showed mild cardiomegaly with interstitial changes, possible mild pulmonary congestion, and worsening aeration at the right base with airspace disease. Admission blood work was negative for leukocytosis, white blood cell count was 5.5, hemoglobin 7.8, hemodynamically patient profile was within normal limits, sodium was 1:30, chloride was 84, CO2 is 39, B1 is 37 creatinine is 1.39, proBNP was 15,900, troponins were 0.050, 0.058, and 0.060. Pro-calcitonin came back as 0.17, not significantly elevated, to suggest the possibility of infectious process. Patient has been started on IV diuretics, he states his breathing is improving compared admission Review of Systems All systems: negative Constitutional: Denies chills, Denies fever Eyes: denies blurred vision, denies pain Ears, nose, mouth and throat: Denies headache, Denies sore throat Cardiovascular: Denies chest pain, Denies shortness of breath Respiratory: Reports dyspnea, Reports home oxygen, Denies cough Gastrointestinal: Denies abdominal pain, Denies diarrhea, Denies nausea, Denies vomiting Musculoskeletal: Denies myalgias Integumentary: Denies pruritus, Denies rash Neurological: Denies numbness, Denies weakness Psychiatric: Denies anxiety, Denies depression Endocrine: Denies fatigue, Denies weight change Past Medical History Past Medical History: Heart Failure, COPD, Hypertension, Myocardial Infarction (AL), Renal Disease, Thyroid Disorder, Hypertension, Myocardial Infarction (AL), Thyroid Disorder Additional Past Medical History / Comment(s): Coronary artery disease, history of severe ischemic cardiomyopathy with systolic heart failure and ejection fraction of 30-35%, sick sinus syndrome, history of coronary artery disease, hypothyroidism, cataracts, chronic anemia, chronic kidney disease, history of insertion of a biventricular dual-chamber AICD, paroxysmal atrial fibrillation, chronic anemia, hypertension Last Myocardial Infarction Date:: 06/24/15 History of Any Multi-Drug Resistant Organisms: MRSA Date of last positivie culture/infection: 10/02/15 MDRO Source:: Sacrum Past Surgical History: Heart Catheterization With Stent, Orthopedic Surgery, Pacemaker Additional Past Surgical History / Comment(s): 1996 L shoulder rotator cuff surgery, colonoscopy with benign polypectomy.heart stent x1, sacral wound debridement with wound vac in 09/2015 Past Anesthesia/Blood Transfusion Reactions: No Reported Reaction Additional Past Anesthesia/Blood Transfusion Reaction / Comment(s): Pt has never received blood. Date of Last Stent Placement:: 06/2015 Type of Cardiac Device: Permanent Pacemaker, AICD Device Placement Date:: 11/25/2016 Past Psychological History: No Psychological Hx Reported Additional Psychological History / Comment(s): . Smoking Status: Former smoker Past Alcohol Use History: None Reported Additional Past Alcohol Use History / Comment(s): Pt states he quit smoking 06/24/15 He started smoking in 1968 and was a 1ppd smoker. Past Drug Use History: None Reported - Past Family History Father Family Medical History: Cancer, Coronary Artery Disease (CAD), Myocardial Infa rction (AL) Additional Family Medical History / Comment(s): Father at age 86yrs. He had a CABG. Bladder cancer. Mother Family Medical History: Cancer Additional Family Medical History / Comment(s): Mother in her 30's of breast cancer. Medications and Allergies Home Medications Medication Instructions Recorded Confirmed Type Aspirin 81 mg PO DAILY@0700 09/04/15 06/01/19 History Ferrous Sulfate [Iron (65 MG 325 mg PO BID@09,209910/04/15 06/01/19 History Elemental)] Docusate [Colace] 100 mg PO DAILY PRN 12/13/17 06/01/19 History Metoprolol Tartrate [Lopressor] 25 mg PO BID@09,209912/13/17 06/01/19 History Levothyroxine Sodium [Synthroid] 175 mcg PO DAILY@0602/20/19 06/01/19 History Amiodarone [Cordarone] 200 mg PO DAILY@69906/01/19 06/01/19 History Atorvastatin [Lipitor] 80 mg PO HS@209906/01/19 06/01/19 History Clopidogrel [Plavix] 75 mg PO DAILY@89906/01/19 06/01/19 History Fluticasone/Salmeterol [Advair 1 puff PO RT-BID@0900,209906/01/19 06/01/19 History 250-50 Diskus] Furosemide [Lasix] 40 mg PO DAILY@89906/01/19 06/01/19 History hydrALAZINE HCL 12.5 mg PO TID@0600,1400,2200 06/01/19 06/01/19 History Allergies Allergy/AdvReac Type Severity Reaction Status Date / Time haloperidol [From Haldol] AdvReac Confusion Verified 06/01/19 16:10 Physical Exam Vitals: Vital Signs Temp Pulse Pulse Resp BP BP Pulse Ox 06/02/19 16:30 88 18 06/02/19 16:17 87 18 96 06/02/19 11:40 76 06/02/19 11:28 76 06/02/19 11:07 78 06/02/19 11:05 97.5 F L 78 18 101/63 98 09/25/19 08:31 80 06/02/19 08:15 76 06/02/19 08:00 97.5 F L 89 18 117/77 97 06/02/19 04:27 97.6 F 86 18 117/64 96 06/02/19 02:40 82 06/02/19 02:29 97 06/02/19 02:28 82 06/01/19 23:52 20 06/01/19 23:21 83 20 107/56 92 L 06/01/19 22:14 98.5 F 91 16 108/58 91 L 06/01/19 21:30 98.7 F 89 20 114/77 89 L 06/01/19 20:50 85 06/01/19 20:39 89 06/01/19 18:36 83 16 105/69 92 L 06/01/19 18:00 84 L 06/01/19 16:54 81 16 116/63 96 Intake and Output 06/02/19 06/02/19 06/02/19 06:59 14:59 22:59 Intake Total 888 Output Total 270 Balance -270 888 Intake: Oral 888 Output: Urine 270 Other: Voiding Method Urinal # Voids 1 Weight 61.8 kg 61.8 kg GENERAL EXAM: Alert, extremely pleasant 69-year-old white male, on 3 L of oxygen with a pulse ox of 97%, mild conversational dyspnea HEAD: Normocephalic/atraumatic. EYES: Normal reaction of pupils, equal size. Conjunctiva pink, sclera white. NOSE: Clear with pink turbinates. THROAT: No erythema or exudates. NECK: No masses, no JVD, no thyroid enlargement, no adenopathy. CHEST: No chest wall deformity. Symmetrical expansion. LUNGS: Equal air entry with bibasilar crackles, diminished breath sounds bilaterally at the bases, but no significant wheezing or rhonchi CVS: Regular rate and rhythm, normal S1 and S2, no gallops, no murmurs, no rubs ABDOMEN: Soft, nontender. No hepatosplenomegaly, normal bowel sounds, no guarding or rigidity. EXTREMITIES: No clubbing, 1+ pedal edema, and trace pretibial edema, no c yanosis, 2+ pulses and upper and lower extremities. MUSCULOSKELETAL: Muscle strength and tone normal. SPINE: No scoliosis or deformity SKIN: No rashes CENTRAL NERVOUS SYSTEM: Alert and oriented -3. No focal deficits, tone is normal in all 4 extremities. PSYCHIATRIC: Alert and oriented -3. Appropriate affect. Intact judgment and insight. Results - Laboratory Findings CBC and BMP: 06/02/19 06:23 06/02/19 06:23 PT/INR, D-dimer PT 9.6 sec (9.0-12.0) 06/01/19 14:08 INR 0.9 (<1.2) 06/01/19 14:08 Abnormal lab findings: Abnormal Labs 06/01/19 06/01/19 06/01/19 14:08 14:08 14:08 WBC RBC 2.59 L Hgb 7.8 L Hct 26.2 L MCV 101.4 H MCHC 29.7 L RDW 16.3 H Lymphocytes # 0.4 L Sodium 130 L Chloride 84 L Carbon Dioxide 39 H BUN 37 H Creatinine 1.39 H Glucose 103 H Troponin I 0.050 H* Albumin 3.4 L Procalcitonin Urine Protein 06/01/19 06/02/19 06/02/19 19:52 01:00 01:29 WBC RBC Hgb Hct MCV MCHC RDW Lymphocytes # Sodium Chloride Carbon Dioxide BUN Creatinine Glucose Troponin I 0.058 H* 0.060 H* Albumin Procalcitonin Urine Protein Trace H 06/02/19 06/02/19 06/02/19 06:23 06:23 06:23 WBC 2.8 L RBC 2.27 L Hgb 7.2 L Hct 23.2 L MCV 102.1 H MCHC RDW 17.1 H Lymphocytes # Sodium 130 L Chloride 83 L Carbon Dioxide 38 H BUN 40 H Creatinine 1.53 H Glucose 149 H Troponin I Albumin Procalcitonin 0.17 H Urine Protein - Diagnostic Findings Chest x-ray: report reviewed, image reviewed Assessment and Plan Plan: Assessment: #1. Acute dyspnea related to acute exacerbation of chronic congestive heart failure with systolic dysfunction and EF of 30-35% #2. Questionable pulmonary fibrosis versus interstitial prominence related to CHF #3. Recent hospitalization for exacerbation of systolic CHF, patient was medically treated and sent to [facility] for evaluation for possibility of elevated initiation #4. Chronic kidney disease, stage III at baseline #5. Admission for acute CHF #6. Hyponatremia likely hypercholesterolemia, related to acute CHF #7. Recent history of acute kidney injury, cardiorenal in nature, recovering #8. Metabolic alkalosis likely secondary to diuresis #9. Chronic anemia #10. Ischemic cardiomyopathy with ejection fraction of 30-35% #11. Severe COPD with FEV1 of 22% of predicted on home oxygen #12. Sick sinus syndrome status post dual ICD placement in 2017 #13. Paroxysmal atrial fibrillation Plan: We'll continue with IV diuretics, once patient is well diuresed, we will likely consider doing a CT of the chest to see if there is any evidence of pulmonary fibrosis on CT chest. Continue with nebulized bronchodilators, Symbicort, pro- calcitonin is low, suggesting low evidence for infectious process. No fever or chills, no leukocytosis. Continue with daily weights, hematocrit intake and output, daily labs. I performed a history & physical examination of the patient and discussed their management with my nurse practitioner, Eliz Barnard. I reviewed the nurse practitioner's note and agree with the documented findings and plan of care. Lung sounds are positive for crackles at the bases. The findings and the impression was discussed with the patient. I attest to the documentation by the nurse practitioner. Time with Patient: Greater than 30
[2019-06-02] MEDS: FUROSEMIDE 10 MG/ML 4 ML VIAL IV SCH (20:59)
[2019-06-02] MEDS ORDERED: ATORVASTATIN 80 MG TAB PO SCH (21:00)
[2019-06-02] MEDS ORDERED: hydrALAZINE HCL 10 MG TAB PO SCH (21:00)
[2019-06-03] MEDS: IPRATROPIUM-ALBUTEROL 3 ML NEB INHALATION SCH ×4 (00:55→11:27)
[2019-06-03] MEDS ORDERED: LEVOTHYROXINE 100 MCG TAB PO SCH (06:30)
[2019-06-03] MEDS ORDERED: LEVOTHYROXINE 75 MCG TAB PO SCH (06:30)
[2019-06-03] MEDS: SYMBICORT 80-4.5 MCG INHALER INHALATION SCH (07:33)
[2019-06-03] MEDS: FUROSEMIDE 10 MG/ML 4 ML VIAL IV SCH (07:33)
[2019-06-03 07:37] VITALS: BP 122/66; TEMP 97.6
[2019-06-03 07:43] VITALS: PULSE 88
--- NOTE | 2019-06-03 08:13 | XR ---
EXAMINATION TYPE: XR chest 1V portable DATE OF EXAM: 06/03/2019 COMPARISON: 06/01/2019 HISTORY: Shortness of breath TECHNIQUE: Single frontal view of the chest is obtained. FINDINGS: Asymmetric interstitial edema and more confluent right infrahilar opacities are seen. Card ia mediastinal silhouette is enlarged. Multilead left-sided cardiac device. Diffuse osseous demineral ization is seen. No sizable pleural effusion or pneumothorax. IMPRESSION: Similar asymmetric moderate interstitial pulmonary edema and more confluent infrahilar a irspace disease.
[2019-06-03 08:14] VITALS: RESP 24
[2019-06-03] MEDS: METOPROLOL TARTRATE 25 MG TAB PO SCH (08:31)
[2019-06-03] MEDS: CLOPIDOGREL 75 MG TAB PO SCH (08:31)
[2019-06-03] MEDS ORDERED: MORPHINE SULFATE 2 MG/ML SYRINGE IVP PRN ×2 (08:40→08:45)
--- NOTE | 2019-06-03 13:03 | P.PN ---
Subjective Progress Note Date: 06/03/19 Principal diagnosis: Shortness of breath This is 69-year-old white male patient who is well-known to our service from his previous admissions for complications related to his chronic congestive heart failure with systolic dysfunction and baseline ejection fraction of 30-35%, sev ere stage IV COPD with a baseline FEV1 of 22% of predicted on home oxygen. Patient has multiple medical problems including above-mentioned cardiomyopathy, sick sinus syndrome status post dual-chamber AICD implantation, hypertension, myocardial infarction, coronary artery disease with previous stenting, chronic kidney disease, hypothyroidism, paroxysmal atrial fibrillation, chronic anemia, and former history of smoking. 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 Patient was treated at the [facility] and into the patient's they performed a right heart cath, and told patient and his family that they felt the patient's shortness of breath was not felt to be related to his cardiac status, and suggested that could be possibly related to his severe COPD and possibility of pulmonary fibrosis. However we do not have the records from [facility], and we are getting a verbal report from patient's . On 06/01/2019 patient presented to the hospital with complaints of worsening shortness of breath, worsening dyspnea on exertion. He denied any fever, denied night sweats, denied any chills, denied any chest pain. No cough or sputum production. Chest x-ray showed mild cardiomegaly with interstitial changes, possible mild pulmonary congestion, and worsening aeration at the right base with airspace disease. Admission blood work was negative for leukocytosis, white blood cell count was 5.5, hemoglobin 7.8, hemodynamically patient profile was within normal limits, sodium was 1:30, chloride was 84, CO2 is 39, B1 is 37 creatinine is 1.39, proBNP was 15,900, troponins were 0.050, 0.058, and 0.060. Pro-calcitonin came back as 0.17, not significantly elevated, to suggest the possibility of infectious process. Patient has been started on IV diuretics, he states his breathing is improving compared admission On 06/03/2019 patient seen in follow-up on selective care unit. In the night patient became significantly more dyspneic, he remains on supplemental oxygen at 4 L the pulse ox of 90, he is very tachypneic, shallow respirations, appears to be quite fatigued and worn out, he is on IV diuretics, and he is only slightly given his fluid balance, today's chest x-ray shows interstitial pulmonary edema and confluent infrahilar airspace disease. We were asked to see the patient this morning prior to initiation of palliative care, apparently the patient and his family had long been discussing hospice, and admitted decision to proceed with hospice enrollment this morning. Upon our evaluation this morning patient is resting in bed, quite fatigued, he is not talking much, tachypneic. Lethargic. His family is at the bedside including his daughter and his grandkids. We offered to continue optimizing his medical treatment and possibility of placing the patient on Lasix infusion, supporting his breathing with the BiPAP. However at this point the patient and his family have decided to seek with hospice and initially they thought they could possibly take him home with hospice but at this point, he may not be able to go home with hospice and instead may need inpatient hospice. Objective - Vital Signs Vital signs: Vital Signs Temp 97.6 F 06/03/19 07:42 Pulse 88 06/03/19 07:42 Resp 24 06/03/19 08:00 BP 122/66 06/03/19 07:42 Pulse Ox 90 L 06/03/19 07:33 Intake & Output 06/02/19 06/03/19 06/03/19 18:59 06:59 18:59 Intake Total 1128 Output Total 200 Balance 1128 -200 Weight 61.8 kg 62 kg Intake: Oral 1128 Output: Urine 200 Other: # Voids 1 - Exam GENERAL EXAM: Lethargic 69-year-old white male, on 4 L of oxygen with a pulse ox of 97%, tachypneic HEAD: Normocephalic/atraumatic. EYES: Normal reaction of pupils, equal size. Conjunctiva pink, sclera white. NOSE: Clear with pink turbinates. THROAT: No erythema or exudates. NECK: No masses, no JVD, no thyroid enlargement, no adenopathy. CHEST: No chest wall deformity. Symmetrical expansion. LUNGS: Equal air entry with bibasilar crackles, diminished breath sounds bilaterally at the bases, but no significant wheezing or rhonchi CVS: Regular rate and rhythm, normal S1 and S2, no gallops, no murmurs, no rubs ABDOMEN: Soft, nontender. No hepatosplenomegaly, normal bowel sounds, no guarding or rigidity. EXTREMITIES: No clubbing, 1+ pedal edema, and trace pretibial edema, no cyanosis, 2+ pulses and upper and lower extremities. MUSCULOSKELETAL: Muscle strength and tone normal. SPINE: No scoliosis or deformity SKIN: No rashes CENTRAL NERVOUS SYSTEM: Lethargic. No focal deficits, tone is normal in all 4 extremities. - Labs CBC & Chem 7: 06/02/19 06:23 06/02/19 06:23 Assessment and Plan Plan: Assessment: #1. Acute exacerbation of decompensated congestive heart failure with systolic dysfunction and EF of 30-35% #2. Questionable pulmonary fibrosis versus interstitial prominence related to CHF #3. Recent hospitalization for exacerbation of systolic CHF, patient was medically treated and sent to [facility] for evaluation for possibility of elevated initiation #4. Chronic kidney disease, stage III at baseline #5. Admission for acute CHF #6. Hyponatremia likely hypercholesterolemia, related to acute CHF #7. Recent history of acute kidney injury, cardiorenal in nature, recovering #8. Metabolic alkalosis likely secondary to diuresis #9. Chronic anemia #10. Ischemic cardiomyopathy with ejection fraction of 30-35% #11. Severe COPD with FEV1 of 22% of predicted on home oxygen #12. Sick sinus syndrome status post dual ICD placement in 2017 #13. Paroxysmal atrial fibrillation Plan: We discussed with the patient for continuation of medical treatment and starting Lasix infusion and BiPAP support but the patient's family and the patient had long been discussing hospice and at this time they have decided to proceed with hospice enrollment and initially they were hoping to take the patient home but at this point patient will likely need inpatient care under the hospice. Regrettably, in view of patient's poor lung and heart function, and his multiple other comorbidities, multiple hospitalizations related to recurrence of exacerbations of CHF, palliative care is reasonable. I performed a history & physical examination of the patient and discussed their management with my nurse practitioner, Eliz Barnard. I reviewed the nurse practitioner's note and agree with the documented findings and plan of care. Lung sounds are positive for crackles at the bases. The findings and the impression was discussed with the patient. I attest to the documentation by the nurse practitioner. Time with Patient: Less than 30
--- NOTE | 2019-06-03 13:50 | P.DS ---
Providers Date of admission: 06/02/19 16:10 Expected date of discharge: 06/03/19 Attending physician: Jovanni Finney Consults: 06/01/19 17:08 Consult Physician Stat Consulting Provider: Tye Mcdowell Consult Reason/Comments: CHF exacerbation Do you want consulting provider notified?: Yes 06/01/19 23:08 Consult Physician Routine Consulting Provider: Leonila Pavon Consult Reason/Comments: COPD Do you want consulting provider notified?: Yes, Notify in am Consult Physician Routine Consulting Provider: Heather Kyle Consult Reason/Comments: CKD Do you want consulting provider notified?: Yes, Notify in am 06/01/19 23:09 Consult Physician Routine Consulting Provider: Aric Pollard Consult Reason/Comments: chronic anemia Do you want consulting provider notified?: Yes, Notify in am Primary care physician: Jovanni Finney This is a discharge summary. Disposition transferred to hospitalist service and the hospice physician and hospice program. Requested hospice by the family, agreed by Dr. Burns pulmonary and critical care. Final diagnosis: #1 congestive heart failure biventricular acute on the top of chronic systolic and diastolic end-stage. #2 ischemic cardiomyopathy progressive #3 pulmonary hypertension #4 pulmonary fibrosis #5 recurrent acute kidney injury with the associated chronic kidney disease. Number #6 hypertension with hypertensive heart disease. #7 chronic atrial fibrillation with a history of amiodarone toxicity with pulmonary fibrosis highly considered by her family for the hospital right sided cardiac cath. #8 chronic hypoxemia with respiratory failure. #The current admission due to continuation of the symptomatic shortness of breath with the recurrence of his acute congestive heart failure and lung disease as well as kidney disease as mentioned above. Presentation to the ER: Shortness of breath with congestive heart failure elevated troponin and elevated pro-bnp Hospital course: Patient is here deterioration progressively, consultation with cardiology pulmonary and nephrology on admission with progressive shortness of breath and acute congestive heart failure despite of treatment and diuresis. And discussed with the family in detail and requested hospice which will be consulted today. Patient discharged to the hospice service and hospice physician patient on metoprolol and hospice. Prognosis poor and grave. Medications will be adjusted by hospice and therefore physicians. Patient discharged from my service Patient Condition at Discharge: Stable Plan - Discharge Summary Discharge Rx Participant: No New Discharge Prescriptions: No Action Aspirin 81 mg PO DAILY@0700 Ferrous Sulfate [Iron (65 MG Elemental)] 325 mg PO BID@09,2099 Docusate [Colace] 100 mg PO DAILY PRN PRN Reason: Constipation Metoprolol Tartrate [Lopressor] 25 mg PO BID@09,2099 Levothyroxine Sodium [Synthroid] 175 mcg PO DAILY@0600 Furosemide [Lasix] 40 mg PO DAILY@09 Fluticasone/Salmeterol [Advair 250-50 Diskus] 1 puff PO RT-BID@899,2099 Clopidogrel [Plavix] 75 mg PO DAILY@899 Atorvastatin [Lipitor] 80 mg PO HS@2099 hydrALAZINE HCL 12.5 mg PO TID@0600,1400,2200 Amiodarone [Cordarone] 200 mg PO DAILY@0700 Discharge Medication List Aspirin 81 mg PO DAILY@0700 09/04/15 [History] Ferrous Sulfate [Iron (65 MG Elemental)] 325 mg PO BID@0900,209910/04/15 [History] Docusate [Colace] 100 mg PO DAILY PRN 12/13/17 [History] Metoprolol Tartrate [Lopressor] 25 mg PO BID@0900,209912/13/17 [History] Levothyroxine Sodium [Synthroid] 175 mcg PO DAILY@0600 02/20/19 [History] Amiodarone [Cordarone] 200 mg PO DAILY@69906/01/19 [History] Atorvastatin [Lipitor] 80 mg PO HS@209906/01/19 [History] Clopidogrel [Plavix] 75 mg PO DAILY@89906/01/19 [History] Fluticasone/Salmeterol [Advair 250-50 Diskus] 1 puff PO RT-BID@0900,209906/01/19 [History] Furosemide [Lasix] 40 mg PO DAILY@89906/01/19 [History] hydrALAZINE HCL 12.5 mg PO TID@0600,1400,2200 06/01/19 [History] Follow up Appointment(s)/Referral(s): Jovanni Finney MD [Primary Care Provider] - 1-2 days Activity/Diet/Wound Care/Special Instructions: Discharge to hospice program, we will be followed by the hospice physician. And discharged today to their service and hospice physician. Discharge Disposition: HOME WITH HOSPICE
== END 2019-06-03 11:31 | disposition hospice, inpatient (51) | DRG 291 ==
LOC: EC 13:10 → 3SCARD 19:23 → OBSVTOIN 06-02 16:10
PROVIDERS: ADMIT Internal Medicine; ATTEND Internal Medicine
DX: I13.0 Hypertensive heart and chronic kidney disease with heart failure and stage 1 through stage 4 chronic kidney disease, or unspecified chronic kidney disease (principal); I50.43 Acute on chronic combined systolic (congestive) and diastolic (congestive) heart failure; J96.21 Acute and chronic respiratory failure with hypoxia; E87.1 Hypo-osmolality and hyponatremia; E87.3 Alkalosis; I47.2 Ventricular tachycardia; J44.1 Chronic obstructive pulmonary disease with (acute) exacerbation; N17.9 Acute kidney failure, unspecified; D46.9 Myelodysplastic syndrome, unspecified; D63.8 Anemia in other chronic diseases classified elsewhere; E03.9 Hypothyroidism, unspecified; E78.00 Pure hypercholesterolemia, unspecified; E78.5 Hyperlipidemia, unspecified; I25.10 Atherosclerotic heart disease of native coronary artery without angina pectoris; I25.2 Old myocardial infarction; I25.5 Ischemic cardiomyopathy; I27.20 Pulmonary hypertension, unspecified; Z51.5 Encounter for palliative care; Z66 Do not resuscitate; I48.2 Chronic atrial fibrillation; J84.10 Pulmonary fibrosis, unspecified; Z87.891 Personal history of nicotine dependence; N18.3 Chronic kidney disease, stage 3 (moderate); T46.2X5A Adverse effect of other antidysrhythmic drugs, initial encounter; T50.2X5A Adverse effect of carbonic-anhydrase inhibitors, benzothiadiazides and other diuretics, initial encounter; Z79.02 Long term (current) use of antithrombotics/antiplatelets; Z79.82 Long term (current) use of aspirin; Z79.890 Hormone replacement therapy; Z79.899 Other long term (current) drug therapy; Z80.3 Family history of malignant neoplasm of breast; Z80.52 Family history of malignant neoplasm of bladder; Z82.49 Family history of ischemic heart disease and other diseases of the circulatory system; Z82.5 Family history of asthma and other chronic lower respiratory diseases; Z95.810 Presence of automatic (implantable) cardiac defibrillator; Z95.5 Presence of coronary angioplasty implant and graft; Z99.81 Dependence on supplemental oxygen; H26.9 Unspecified cataract; Z86.010 Personal history of colon polyps; Z86.14 Personal history of Methicillin resistant Staphylococcus aureus infection
CPT/HCPCS: 36415; 71045; 71046; 80048; 80053; 81003; 83735; 83880; 84145; 84443; 84484; 85025; 85027; 85610; 85730; 93005; 94640; 94760; 96374; 96375; 99285

== ENCOUNTER 2019-06-03 09:58 | Inpatient (IN) | payer MEDICAID ==
[2019-06-03] MEDS ORDERED: GLYCOPYRROLATE 0.2 MG/ML 2 ML VIAL IVP PRN (10:42)
[2019-06-03] MEDS ORDERED: LORazepam 2 MG/ML INJ IV PRN (10:42)
[2019-06-03] MEDS ORDERED: ACETAMINOPHEN SUPPOSITORY 650 MG SUPP RECTAL PRN (10:42)
[2019-06-03] MEDS ORDERED: ATROPINE OPHTH SOLN 1% 5ML BTL SUBLINGUAL PRN (10:42)
[2019-06-03] MEDS ORDERED: ONDANSETRON 4 MG/2 ML VIAL IVP PRN (10:42)
[2019-06-03] MEDS ORDERED: MORPHINE SULFATE (100 MG/2 ML) 100 MG in SODIUM CHLORIDE 0.9% 100 ML IV SCH (11:00)
[2019-06-03] MEDS ORDERED: SCOPOLAMINE 1.5MG/72HR PATCH TRANSDERM SCH (11:00)
[2019-06-03] MEDS: IPRATROPIUM-ALBUTEROL 3 ML NEB INHALATION SCH ×4 (11:46→23:57)
[2019-06-03 21:23] VITALS: RESP 13
== END 2019-06-04 01:02 | disposition expired | DRG 951 ==
LOC: 3SCARD 11:34
PROVIDERS: ADMIT Internal Medicine; ATTEND Internal Medicine
DX: Z51.5 Encounter for palliative care (principal); I13.0 Hypertensive heart and chronic kidney disease with heart failure and stage 1 through stage 4 chronic kidney disease, or unspecified chronic kidney disease; N18.4 Chronic kidney disease, stage 4 (severe); C94.6 Myelodysplastic disease, not elsewhere classified; Z66 Do not resuscitate; Z79.02 Long term (current) use of antithrombotics/antiplatelets; Z79.82 Long term (current) use of aspirin; Z79.890 Hormone replacement therapy; Z79.899 Other long term (current) drug therapy; Z88.8 Allergy status to other drugs, medicaments and biological substances; I50.9 Heart failure, unspecified; Z87.891 Personal history of nicotine dependence; J84.10 Pulmonary fibrosis, unspecified; I25.5 Ischemic cardiomyopathy; I48.2 Chronic atrial fibrillation; I25.10 Atherosclerotic heart disease of native coronary artery without angina pectoris; Z95.5 Presence of coronary angioplasty implant and graft; I27.20 Pulmonary hypertension, unspecified; E03.9 Hypothyroidism, unspecified; Z95.810 Presence of automatic (implantable) cardiac defibrillator; Z98.49 Cataract extraction status, unspecified eye; I95.2 Hypotension due to drugs; T50.2X5A Adverse effect of carbonic-anhydrase inhibitors, benzothiadiazides and other diuretics, initial encounter; R79.89 Other specified abnormal findings of blood chemistry; D64.9 Anemia, unspecified; Z80.3 Family history of malignant neoplasm of breast; Z82.49 Family history of ischemic heart disease and other diseases of the circulatory system